=== PATIENT | female | born 1990 | race Caucasian/White ===

== ENCOUNTER 2016-09-11 22:37 | Emergency (ER) | payer SELFPAY ==
[~2016-09-11] VITALS: Ht 170.2 cm; Wt 94.3 kg
[~2016-09-11 22:37] MED LIST: ASPI325T4 PO; ATOR40TA PO; DIAZ5TAB PO; FLUC150T PO; GABA-586 PO; GABA600T2 PO; GLIM1TAB PO; HYDR-2666 PO; INSU100C SQ; INSU100I13 SQ; INSU100V SQ; INSU100V5 SQ; INSU100V8 SQ; LEVO500T38 PO; METO5TAB PO; OMEG10006 PO; ONDA4TAB10 SL; ONDA4TAB7 SL; OXYC10TA PO; OXYC1TAB7 PO; PROM12.553 RC; SULF1TAB24 PO; TRAM-29 PO; TRAM50TA PO; TRAZ100T12 PO; TRAZ50TA15 PO
[2016-09-12] VITALS: BP 157/85
[2016-09-12 01:42] LABS: BASO % 0 % (0-3); EOS % 1 % (0-3); HEMATOCRIT 36.1 % (36.0-47.0); HEMOGLOBIN 12.2 g/dL (12.0-15.5); LYMPH # 1.4 x10^3/uL (1.0-4.8); LYMPH % 12 % (24-48); MEAN CORPUSCULAR HEMOGLOBIN 26 pg (25-35); MEAN CORPUSCULAR HGB CONC 34 g/dL (31-37); MEAN CORPUSCULAR VOLUME 77 fL (79-100); MONO % 5 % (0-9); NEUT % 82 % (31-73); PLATELET COUNT 311 x10^3/uL (140-400); RED CELL DISTRIBUTION WIDTH 17.2 % (11.5-14.5); WHITE BLOOD COUNT 11.5 x10^3/uL (4.0-11.0)
[2016-09-12 01:59] LABS: CALCIUM 9.5 mg/dL (8.5-10.1); CREATININE 0.6 mg/dL (0.6-1.0); GFR 119.9
[2016-09-12 02:02] LABS: POTASSIUM 2.7 mmol/L (3.5-5.1)
[2016-09-12] MEDS ORDERED: CONTRAST GIVEN MC PRN (03:00)
[2016-09-12] MEDS ORDERED: IOHEXOL 300 MG/ML 75 ML VIAL IV ONE (03:00)
[2016-09-12] MEDS ORDERED: POTASSIUM CHLORIDE 20 MEQ TABLET.ER. PO ONE (03:00)
[2016-09-12] MEDS ORDERED: CLIN300C86 PO (04:22)
--- NOTE | 2016-09-12 04:23 | PHYS DOC ---
Past Medical History Past Medical History: Diabetes-Type I, MRSA, Other Additional Past Medical Histor: neuropathy, ovarian cyst,CHRONIC ABD PAIN, VENTRAL HERNIA, hyperglycemia Past Surgical History: Appendectomy, Cholecystectomy, Oophorectomy, Other Additional Past Surgical Histo: R fallopian tube removed, L ovarian cyst removed,HERNIA REPAIR, I&D L ARM Alcohol Use: None Drug Use: None Adult General Chief Complaint Chief Complaint: DENTAL PROBLEM HPI HPI 25-year-old female presenting to the emergency Department with left tooth pain after having multiple teeth removed in the left lower jaw. Her pain is a throbbing nonradiating pain. She denies alleviating or exacerbating factors. She also complains of nausea with one episode non-bilious vomiting over the past 24 hours. She also has left lower quadrant abdominal pain that is acute on chronic. She has chronic abdominal pain and she denies this pain being different than her previous pain that she is had for many months. Review of systems is negative for chest pain shortness of breath cough. Positive for nausea with one episode of vomiting. All other review of systems is negative. Review of Systems Review of Systems see above Current Medications Current Medications Current Medications Medications (Trade) Dose Ordered Sig/Naya Start Time Stop Time Status Last Admin Dose Admin Info (Do NOT chart on this entry -- for MONITORING) 1 each PRN DAILY PRN 09/12/16 03:00 09/12/16 04:30 DC Iohexol (Omnipaque 300 Mg/ml) 70 ml 1X ONCE 09/12/16 03:00 09/12/16 03:01 DC Potassium Chloride (Klor-Con) 40 meq 1X ONCE 09/12/16 03:00 09/12/16 03:01 DC 09/12/16 04:27 40 MEQ Allergies Allergies Allergies Coded Allergies Type Severity Reaction Last Updated Verified Penicillins Allergy Intermediate 01/29/16 Yes codeine Allergy Intermediate Tolerates Dilaudid, MORPHINE 01/29/16 Yes doxycycline Allergy Intermediate 01/29/16 Yes fentanyl Allergy Intermediate 01/29/16 Yes hydrocodone Allergy Intermediate 01/29/16 Yes Physical Exam Physical Exam Constitutional: Well developed, well nourished, no acute distress, non-toxic appearance. [] HENT: Normocephalic, atraumatic, bilateral external ears normal, oropharynx moist, no oral exudates, nose normal. patient has healing wounds from recent dental extraction on the left lower jaw. No sign of abscess formation. No swelling of the neck. No swelling of the tongue. Able to tolerate secretions without stridor. Eyes: PERRLA, EOMI, conjunctiva normal, no discharge. [] Neck: Normal range of motion, no tenderness, supple, no stridor. [] Cardiovascular:Heart rate regular rhythm, no murmur [] Lungs & Thorax: Bilateral breath sounds clear to auscultation [] Abdomen: Bowel sounds normal, soft, no tenderness, no masses, no pulsatile masses. neg mcburneys point. negative Hunt sign. Skin: Warm, dry, no erythema, no rash. [] Back: No tenderness, no CVA tenderness. [] Extremities: No tenderness, no cyanosis, no clubbing, ROM intact, no edema. [] Neurologic: Alert and oriented X 3, normal motor function, normal sensory function, no focal deficits noted. [] Psychologic: Affect normal, judgement normal, mood normal. [] Current Patient Data Vital Signs Vital Signs Date Time Temp Pulse Resp B/P Pulse Ox O2 Delivery O2 Flow Rate FiO2 09/12/16 02:30 104 97 Room Air 09/12/16 00:00 157/85 09/11/16 23:54 24 Lab Values Laboratory Tests Test 09/11/16 23:47 09/12/16 00:23 09/12/16 01:10 Glucose (Fingerstick) 58mg/dL (70-99) L 69mg/dL (70-99) L White Blood Count 11.5x10^3/uL (4.0-11.0) H Red Blood Count 4.70x10^6/uL (3.50-5.40) Hemoglobin 12.2g/dL (12.0-15.5) Hematocrit 36.1% (36.0-47.0) Mean Corpuscular Volume 77fL (79-100) L Mean Corpuscular Hemoglobin 26pg (25-35) Mean Corpuscular Hemoglobin Concent 34g/dL (31-37) Red Cell Distribution Width 17.2% (11.5-14.5) H Platelet Count 311x10^3/uL (140-400) Neutrophils (%) (Auto) 82% (31-73) H Lymphocytes (%) (Auto) 12% (24-48) L Monocytes (%) (Auto) 5% (0-9) Eosinophils (%) (Auto) 1% (0-3) Basophils (%) (Auto) 0% (0-3) Neutrophils # (Auto) 9.3x10^3uL (1.8-7.7) H Lymphocytes # (Auto) 1.4x10^3/uL (1.0-4.8) Monocytes # (Auto) 0.6x10^3/uL (0.0-1.1) Eosinophils # (Auto) 0.1x10^3/uL (0.0-0.7) Basophils # (Auto) 0.0x10^3/uL (0.0-0.2) Sodium Level 137mmol/L (136-145) Potassium Level 2.7mmol/L (3.5-5.1) *L Chloride Level 99mmol/L (98-107) Carbon Dioxide Level 23mmol/L (21-32) Anion Gap 15 (6-14) H Blood Urea Nitrogen 12mg/dL (7-20) Creatinine 0.6mg/dL (0.6-1.0) Estimated GFR (Cockcroft-Gault) 119.9 Glucose Level 99mg/dL (70-99) Calcium Level 9.5mg/dL (8.5-10.1) Laboratory Tests 09/12/16 01:10 Laboratory Tests 09/12/16 01:10 EKG EKG [] Radiology/Procedures Radiology/Procedures [] Course & Med Decision Making Course & Med Decision Making Pertinent Labs and Imaging studies reviewed. (See chart for details) []25-year-old female presenting to the emergency Department today with left jaw pain after recent dental extraction. Patient was mildly tachycardic likely secondary to pain. Unfortunately she is allergic to many pain medications. Blood testing obtained which showed low potassium. K was replaced in the emergency Department.otherwise, leukocytosis present. Likely secondary to her recent dental extraction. The patient was provided oral antibiotics to follow up with her dental surgeon within the next day or two. Her abdominal pain was more chronic. Abdominal exam not suggestive of acute surgical condition. She was provided potassium upon discharge for oral home replacement. Dragon Disclaimer Dragon Disclaimer This electronic medical record was generated, in whole or in part, using a voice recognition dictation system. Departure Departure Impression: Primary Impression: Pain, dental Additional Impression: Potassium depletion Disposition: HOME, SELF-CARE Condition: STABLE Referrals: UNKNOWN PCP NAME (PCP) Patient Instructions: Dental Pain Additional Instructions: Thank you for allowing us to participate in your care today. Followup with your primary care physician in 3 days if your symptoms do not improve. If you do not have a primary care provider you can ask for a list of our primary care providers. Return to the emergency department you have any new or concerning findings. This should be evaluated by the primary care physician and any necessary consulting services for continued management within a few days after discharge. Return to emergency room if you have any new or concerning symptoms including but not limited to fever, chills, nausea, vomiting, intractable pain, any new rashes, chest pain, shortness of air, uncontrolled bleeding, difficulty breathing, and/or vision loss. Scripts Potassium Chloride 10 Meq Capsule.er10 Meq PO DAILY #7 TAB.SR Prov:HENRRY WALSH MD 09/12/16 Clindamycin Hcl 300 Mg Capsule1 Cap PO BID #14 CAP Prov:HENRRY WALSH MD 09/12/16 Problem Qualifiers HENRRY WALSH MD Sep 12, 2016 04:22
[2016-09-12] MEDS ORDERED: POTA10CA PO (04:27)
--- NOTE | 2016-09-12 18:49 | EKG ---
[facility] [address] [place] [address] Test Date: 2016-09-11 Test Time: 23:58:56 Pat Name: SAMANTHA DOWD Department: Room: Gender: F Trailer Rental Clerk: DARLENE EMT : 1990 Requested By: HENRRY WALSH Order Number: [id number] Reading MD: Elaine Agrawal Measurements Intervals [place] Rate: 115 P: 39 TN: 148 QRS: 58 QRSD: 84 T: 1 QT: 324 QTc: 450 Interpretive Statements SINUS TACHYCARDIA LEFT ATRIAL ABNORMALITY ABNORMAL ECG Electronically Signed On 09-13-2016 19:02:47 KEYMODULE ASSEMBLY SUPERVISOR by Elaine Agrawal
== END 2016-09-12 04:20 | disposition home or self-care (01) ==
LOC: ER 22:37
DX: K08.89 Other specified disorders of teeth and supporting structures (principal); E87.6 Hypokalemia; G89.29 Other chronic pain; R10.32 Left lower quadrant pain; E10.40 Type 1 diabetes mellitus with diabetic neuropathy, unspecified; E10.65 Type 1 diabetes mellitus with hyperglycemia; Z90.49 Acquired absence of other specified parts of digestive tract; Z90.79 Acquired absence of other genital organ(s); Z88.0 Allergy status to penicillin; Z88.1 Allergy status to other antibiotic agents; Z88.5 Allergy status to narcotic agent; Z88.8 Allergy status to other drugs, medicaments and biological substances
CPT/HCPCS: 36415; 80048; 82947; 85027; 93005; 99285-25

== ENCOUNTER 2016-09-16 23:36 | Inpatient (IN) | payer SELFPAY ==
[~2016-09-16] VITALS: Ht 170.2 cm; Wt 95.7 kg
[~2016-09-16 23:36] MED LIST changes: +CLIN300C86 PO; +POTA10CA PO
[2016-09-17] MEDS ORDERED: IV NORMAL SALINE 1000ML BAG 1,000 ML IV SCH (00:45)
[2016-09-17 00:59] LABS: BILIRUBIN,URINE NEGATIVE (NEG); GLUCOSE,URINE >=1000 mg/dL (NEG); NITRITE,URINE NEGATIVE (NEG); PROTEIN,URINE NEGATIVE (NEG-TRACE); UROBILINOGEN,URINE 0.2 mg/dL (0.2 mg/dL)
[2016-09-17] MEDS ORDERED: ONDANSETRON ODT 4 MG TAB.RAPDIS PO ONE (01:00)
[2016-09-17 01:04] LABS: BASO % 0 % (0-3); EOS % 2 % (0-3); HEMATOCRIT 36.3 % (36.0-47.0); HEMOGLOBIN 11.6 g/dL (12.0-15.5); LYMPH # 2.4 x10^3/uL (1.0-4.8); LYMPH % 29 % (24-48); MEAN CORPUSCULAR HEMOGLOBIN 25 pg (25-35); MEAN CORPUSCULAR HGB CONC 32 g/dL (31-37); MEAN CORPUSCULAR VOLUME 79 fL (79-100); MONO % 8 % (0-9); NEUT % 61 % (31-73); PLATELET COUNT 273 x10^3/uL (140-400); RED BLOOD COUNT 4.59 x10^6/uL (3.50-5.40); RED CELL DISTRIBUTION WIDTH 16.9 % (11.5-14.5); WHITE BLOOD COUNT 8.2 x10^3/uL (4.0-11.0)
[2016-09-17 01:07] LABS: BACTERIA,URINE FEW /HPF (0-FEW); RBC,URINE TNTC /HPF (0-2); SQUAMOUS EPITHELIAL CELL,UR FEW /LPF
[2016-09-17 01:45] LABS: ALBUMIN/GLOBULIN RATIO 0.9 (1.0-1.7); CALCIUM 9.7 mg/dL (8.5-10.1); GFR 66.5; POTASSIUM 3.9 mmol/L (3.5-5.1); TOTAL BILIRUBIN 0.4 mg/dL (0.2-1.0); TOTAL PROTEIN 8.4 g/dL (6.4-8.2)
[2016-09-17] MEDS ORDERED: FAMOTIDINE 20 MG/2 ML VIAL IVP ONE (02:00)
[2016-09-17] MEDS ORDERED: ONDANSETRON PF 4 MG/2 ML VIAL. IV ONE (02:00)
[2016-09-17] MEDS ORDERED: POTASSIUM CHLORIDE 10MEQ 100 ML IV PRN ×3 (02:15)
[2016-09-17] MEDS ORDERED: INSULIN REGULAR VIAL 150 UNIT in 0.9 % SODIUM CHLORIDE 150ML 150 ML IV PRN ×2 (02:15→05:30)
[2016-09-17 02:30] LABS: HCO3 ABG 20 mmol/L (21-28); PCO2 ABG 30 mmHg (35-46); PH ABG 7.43 (7.35-7.45); PO2 ABG 103 mmHg (85-108)
[2016-09-17] MEDS ORDERED: IV 1/2 NORMAL SALINE 1,000 ML IV SCH ×2 (02:30→05:30)
[2016-09-17] MEDS ORDERED: INSULIN,REGULAR 150 UNIT DRIP 150 ML IV ONE ×3 (02:30→03:30)
[2016-09-17 02:32] LABS: FIO2 ABG 21
--- NOTE | 2016-09-17 02:36 | ED.ADGEN ---
Past Medical History Past Medical History: Diabetes-Type I, MRSA, Other Additional Past Medical Histor: neuropathy, ovarian cyst,CHRONIC ABD PAIN, VENTRAL HERNIA, hyperglycemia Past Surgical History: Appendectomy, Cholecystectomy, Oophorectomy, Other Additional Past Surgical Histo: R fallopian tube removed, L ovarian cyst removed,HERNIA REPAIR, I&D L ARM Alcohol Use: None Drug Use: None Adult General Chief Complaint Chief Complaint: HYPERGLYCEMIA HPI HPI Patient is a 25 year old woman, with history of type 1 diabetes mellitus, chronic abdominal pain, who presents emergency Department with complaint of high sugars, nausea, vomiting, abdominal pain consistent with her typical episodes of hyperglycemia. Denies any fevers or chills, states that she was seen at her primary care provider, [facility], yesterday, at that time she had an increase of her insulin however it has been unsuccessful in controlling her sugars. She denies any chest pain or shortness of breath, any rhinorrhea, states she has one episode of diarrhea here just upon arrival to the ED, multiple doses of vomiting that began yesterday. No injuries, no urinary complaints. Review of Systems Review of Systems Constitutional: Denies fever or chills. [] Eyes: Denies change in visual acuity. [] HENT: Denies nasal congestion or sore throat. [] Respiratory: Denies cough or shortness of breath. [] Cardiovascular: Denies chest pain or edema. [] GI: Abdominal pain, nausea, vomiting, one episode of diarrhea. No bloody stools. : Denies dysuria. [] Musculoskeletal: Denies back pain or joint pain. [] Integument: Denies rash. [] Neurologic: Denies headache, focal weakness or sensory changes. [] Endocrine: Denies polyuria or polydipsia. [] Lymphatic: Denies swollen glands. [] Psychiatric: Denies depression or anxiety. [] Current Medications Current Medications Current Medications Medications (Trade) Dose Ordered Sig/Naya Start Time Stop Time Status Last Admin Dose Admin Famotidine (Pepcid) 20 mg 1X ONCE 09/17/16 02:00 09/17/16 02:41 DC 09/17/16 01:43 20 MG Insulin Human Regular (Novolin R Iv Drip) 150 ml @ 9.435 mls/ hr 1X ONCE 09/17/16 02:30 09/17/16 02:41 DC Insulin Human Regular 150 unit/ Sodium Chloride 151.5 ml @ 0 mls/hr CONT PRN PRN 09/17/16 02:15 09/17/16 02:39 DC Metoclopramide HCl (Reglan) 10 mg 1X ONCE 09/17/16 02:45 09/17/16 02:46 DC 09/17/16 03:29 10 MG Ondansetron HCl (Zofran Odt) 4 mg 1X ONCE 09/17/16 01:00 09/17/16 01:01 DC Ondansetron HCl 4 mg 4 mg 1X ONCE 09/17/16 02:00 09/17/16 02:01 DC 09/17/16 01:44 4 MG Potassium Chloride 100 ml @ 100 mls/hr PRN Q1HR PRN 09/17/16 02:15 09/17/16 02:39 DC Sodium Chloride 1,000 ml @ 500 mls/hr Q2H 09/17/16 02:30 09/17/16 02:39 DC Sodium Chloride (Iv Sodium Chloride 0.9% 1000ml Bag) 1,000 ml @ 1,000 mls/hr Q1H 09/17/16 00:45 09/17/16 01:44 DC 09/17/16 01:27 1,000 MLS/HR Allergies Allergies Allergies Coded Allergies Type Severity Reaction Last Updated Verified Penicillins Allergy Intermediate 01/29/16 Yes codeine Allergy Intermediate Tolerates Dilaudid, MORPHINE 01/29/16 Yes doxycycline Allergy Intermediate 01/29/16 Yes fentanyl Allergy Intermediate 01/29/16 Yes hydrocodone Allergy Intermediate 01/29/16 Yes Physical Exam Physical Exam Constitutional: Well developed, well nourished, no acute distress, non-toxic appearance. [] HENT: Normocephalic, atraumatic, bilateral external ears normal, oropharynx moist, no oral exudates, nose normal. [] Eyes: PERRLA, EOMI, conjunctiva normal, no discharge. [] Neck: Normal range of motion, no tenderness, supple, no stridor. [] Cardiovascular:Heart rate regular rhythm, no murmur, S1, S2, rubs or gallops. [] Lungs & Thorax: Bilateral breath sounds clear to auscultation, no wheezing, rhonchi, rales. No chest or crepitus or tenderness. [] Abdomen: Bowel sounds normal, soft, mild initial patient diffusely, no rebound, rigidity, no guarding, no masses, no pulsatile masses. [] Skin: Warm, dry, no erythema, no rash. [] Back: No tenderness, no CVA tenderness. [] Extremities: No tenderness, no cyanosis, no clubbing, ROM intact, no edema. Negative Homans sign. Neurologic: Alert and oriented X 3, normal motor function, normal sensory function, no focal deficits noted. [] Psychologic: Affect normal, judgement normal, mood normal. [] Current Patient Data Vital Signs Vital Signs Date Time Temp Pulse Resp B/P Pulse Ox O2 Delivery O2 Flow Rate FiO2 09/17/16 02:22 116 22 124/64 99 Room Air 09/17/16 00:29 97.5 97.5 Lab Values Laboratory Tests Test 09/17/16 00:01 09/17/16 00:28 09/17/16 00:55 09/17/16 01:12 Urine Collection Type Unknown Urine Color Red Urine Clarity Cloudy Urine pH 6.0 Urine Specific [place] 1.025 Urine Protein Negativemg/dL (NEG-TRACE) Urine Glucose (UA) >=1000mg/dL (NEG) Urine Ketones (Stick) Negativemg/dL (NEG) Urine Blood Large (NEG) Urine Nitrite Negative (NEG) Urine Bilirubin Negative (NEG) Urine Urobilinogen Dipstick 0.2mg/dL (0.2 mg/dL) Urine Leukocyte Esterase Small (NEG) Urine RBC Tntc/HPF (0-2) Urine WBC 5-10/HPF (0-4) Urine Squamous Epithelial Cells Few/LPF Urine Bacteria Few/HPF (0-FEW) POC Urine HCG, Qualitative Hcg negative (Negative) White Blood Count 8.2x10^3/uL (4.0-11.0) Red Blood Count 4.59x10^6/uL (3.50-5.40) Hemoglobin 11.6g/dL (12.0-15.5) L Hematocrit 36.3% (36.0-47.0) Mean Corpuscular Volume 79fL (79-100) Mean Corpuscular Hemoglobin 25pg (25-35) Mean Corpuscular Hemoglobin Concent 32g/dL (31-37) Red Cell Distribution Width 16.9% (11.5-14.5) H Platelet Count 273x10^3/uL (140-400) Neutrophils (%) (Auto) 61% (31-73) Lymphocytes (%) (Auto) 29% (24-48) Monocytes (%) (Auto) 8% (0-9) Eosinophils (%) (Auto) 2% (0-3) Basophils (%) (Auto) 0% (0-3) Neutrophils # (Auto) 5.0x10^3uL (1.8-7.7) Lymphocytes # (Auto) 2.4x10^3/uL (1.0-4.8) Monocytes # (Auto) 0.6x10^3/uL (0.0-1.1) Eosinophils # (Auto) 0.2x10^3/uL (0.0-0.7) Basophils # (Auto) 0.0x10^3/uL (0.0-0.2) Lactic Acid Level 4.6mmol/L (0.4-2.0) *H Test 09/17/16 01:15 09/17/16 02:27 Sodium Level 131mmol/L (136-145) L Potassium Level 3.9mmol/L (3.5-5.1) Chloride Level 93mmol/L (98-107) L Carbon Dioxide Level 24mmol/L (21-32) Anion Gap 14 (6-14) Blood Urea Nitrogen 8mg/dL (7-20) Creatinine 1.0mg/dL (0.6-1.0) Estimated GFR (Cockcroft-Gault) 66.5 BUN/Creatinine Ratio 8 (6-20) Glucose Level 610mg/dL (70-99) *H Calcium Level 9.7mg/dL (8.5-10.1) Phosphorus Level 3.8mg/dL (2.6-4.7) Magnesium Level 1.9mg/dL (1.8-2.4) Total Bilirubin 0.4mg/dL (0.2-1.0) Aspartate Amino Transferase (AST) 20U/L (15-37) Alanine Aminotransferase (ALT) 42U/L (14-59) Alkaline Phosphatase 166U/L (46-116) H Total Protein 8.4g/dL (6.4-8.2) H Albumin 4.0g/dL (3.4-5.0) Albumin/Globulin Ratio 0.9 (1.0-1.7) L Lipase 169U/L (73-393) O2 Saturation Pending Arterial Blood pH 7.43 (7.35-7.45) Arterial Blood pCO2 at Patient Temp 30mmHg (35-46) L Arterial Blood pO2 at Patient Temp 103mmHg (85-108) Arterial Blood HCO3 20mmol/L (21-28) L Arterial Blood Base Excess -4mmol/L (-3-3) L FiO2 21 Laboratory Tests 09/17/16 00:55 Laboratory Tests 09/17/16 01:15 EKG EKG EC: Sinus tachycardia, heart rate 122 bpm, right axis deviation with right ventricular hypertrophy, moderate baseline artifact noted, QTc mildly prolonged at 514, [place] 120, QRS of 60, abnormal ECG, no ST elevations or depressions. As interpreted by me. [] Radiology/Procedures Radiology/Procedures Acute abdominal series: Normal cardiac silhouette, no infiltrate, no effusions, no soft tissue or bony abnormalities identified. No free air, stool and bowel gas throughout. No evidence of obstruction. As interpreted by me. [] Course & Med Decision Making Course & Med Decision Making Pertinent Labs and Imaging studies reviewed. (See chart for details) Patient with a glucose of 610, no ketones in the urine, no anion gap, patient with a lactic of 4.6. Evaluation is consistent with dehydration this time, patient has a soft nontender abdomen, x-rays unremarkable, and her pain is consistent with her previous known chronic pain. IV hydration initiated, along with insulin drip. Will admit to the medical telemetry floor for continued hydration and glucose management. Patient is agreeable with this plan. Above discussed with Dr. Munguia of internal medicine, she accepted to his service as a full admission to the medical telemetry floor, she remains tachycardic at this time, with continued supportive care, insulin drip, and monitoring. Bridge orders entered per his request. Patient transferred to the floor without issue. Dragon Disclaimer Dragon Disclaimer This electronic medical record was generated, in whole or in part, using a voice recognition dictation system. Departure Impression: Primary Impression: Hyperglycemia Additional Impressions: Hyperglycemia due to type 1 diabetes mellitus Dehydration Disposition: 09 ADMITTED INPATIENT Admitting Physician: Sonia Munguia Condition: IMPROVED Problem Qualifiers ANGELA DIOR DO Sep 17, 2016 02:35
[2016-09-17] MEDS ORDERED: METOCLOPRAMIDE 10 MG TABLET PO ONE (02:45)
[2016-09-17] MEDS ORDERED: IV NORMAL SALINE 1000ML BAG 1,000 ML IV ONE ×2 (03:00→03:30)
[2016-09-17] MEDS ORDERED: MORPHINE SULFATE 4 MG/ML DISP.SYRIN. IV ONE (03:30)
[2016-09-17 04:43] VITALS: BP 136/75
[2016-09-17] MEDS ORDERED: ACETAMINOPHEN 325 MG TABLET. PO PRN (05:00)
[2016-09-17] MEDS: TRAMADOL 50 MG TABLET. PO PRN ×3 (05:28→22:12)
[2016-09-17] MEDS ORDERED: IV DEXTROSE 5 %-0.45 % NACL 1,000 ML IV SCH (05:30)
[2016-09-17] MEDS: ONDANSETRON PF 4 MG/2 ML VIAL. IV PRN ×2 (05:30→15:40)
[2016-09-17] MEDS: IV NORMAL SALINE 1000ML BAG 1,000 ML IV SCH ×3 (06:43→22:16)
[2016-09-17] MEDS: MORPHINE SULFATE 2 MG/ML DISP.SYRIN. IV PRN ×2 (06:52→11:07)
[2016-09-17 07:00] VITALS: BP 138/82
--- NOTE | 2016-09-17 07:32 | RAD ---
Abdomen series with chest, 3 views, 09/17/2016: History: Abdominal pain The flank regions are not completely included on these images of this large patient. The abdominal gas pattern is unremarkable. No free air is evident in the abdomen. Surgical clips are present in the right upper quadrant. The heart size is normal. The lungs are clear. There is no evidence of pleural fluid. IMPRESSION: No acute abdominal abnormality is detected.
--- NOTE | 2016-09-17 07:57 | EKG ---
[facility] [address] [place] [address] Test Date: 2016-09-17 Test Time: 01:23:51 Pat Name: SAMANTHA DOWD Department: Room: 444 1 Gender: F Spa Consultant: : 1990 Requested By: ANGELA DIOR Order Number: [id number] Reading MD: Weston Valdez Measurements Intervals [place] Rate: 122 P: -111 OK: 120 QRS: 131 QRSD: 68 T: 19 QT: 360 QTc: 514 Interpretive Statements SINUS TACHYCARDIA ABNORMAL RIGHT AXIS DEVIATION Electronically Signed On 10-01-2016 14:55:17 PANTOGRAPH WATCHER by Weston Valdez
[2016-09-17 08:34] LABS: CALCIUM 8.8 mg/dL (8.5-10.1); CREATININE 0.6 mg/dL (0.6-1.0); GFR 119.9; POTASSIUM 3.2 mmol/L (3.5-5.1)
[2016-09-17] MEDS ORDERED: INSULIN DETEMIR 300 UNITS/3 ML INSULN.PEN. SQ SCH (09:00)
[2016-09-17 11:00] VITALS: BP 133/86
[2016-09-17] MEDS ORDERED: TRAMADOL 50 MG TABLET. PO PRN (14:30)
[2016-09-17] MEDS ORDERED: DEXTROSE 50% 25 GM / 50ML DISP.SYRIN. IV PRN (14:30)
[2016-09-17 15:00] VITALS: BP 137/89
[2016-09-17] MEDS: GABAPENTIN 300 MG CAPSULE. PO SCH ×3 (15:00→22:11)
[2016-09-17] MEDS: METOCLOPRAMIDE 10 MG TABLET PO SCH (15:40)
--- NOTE | 2016-09-17 16:19 | HP ---
ADMIT DATE: 09/17/2016 CHIEF COMPLAINT: DKA. HISTORY OF PRESENT ILLNESS: The patient is a 25-year-old woman with diabetes type 1 by monthly admissions for blood sugar issues. At this time, she presents with hyperglycemia after apparent ER visit several days ago for hypoglycemia. She attributes all this to oral surgery that she had about 10 days ago. She explained that that she had been eating terribly well. It is somewhat unclear, if she actually had continued her insulin as previously prescribed. She was admitted on insulin drip and is currently in much better blood glucose control. PAST MEDICAL HISTORY: Diabetes type 1, noncompliant; diabetic nephropathy; diabetic neuropathy; ovarian cyst; chronic pain syndrome with narcotic dependence. She is status post appendectomy, cholecystectomy, oophorectomy, hernia repair and I and D of the left arm. FAMILY HISTORY: Hypertension. SOCIAL HISTORY: , not working. No toxic habits. ALLERGIES: PENICILLIN, CODEINE, FENTANYL AND HYDROCODONE. MEDICATIONS: Mar reconciled with home medications. REVIEW OF SYSTEMS: As usual. General aches and pains, fatigue, appetite is poor, still has issues with her dry socket from oral surgery. Denies any fevers or chills at home. No nausea, vomiting or abdominal pain. PHYSICAL EXAMINATION: VITAL SIGNS: Today show blood pressure of 133/86, heart rate of 105, respiratory rate at 18. She is afebrile. GENERAL: This is an obese, 25-year-old woman, alert and oriented, in no acute distress. HEENT: Shows no scleral icterus. Oral mucosa is pink and moist. NECK: Supple. LUNGS: Clear. HEART: Regular rate and rhythm. ABDOMEN: Obese, positive bowel sounds. EXTREMITIES: Show no edema. No clubbing, no cyanosis. SKIN: Warm, soft and dry. LABORATORY DATA: CBC at admit with a WBC of 8.2, hemoglobin 11.6, platelets of 273. Chemistries with a BUN and creatinine of 8 and 1.0, sodium of 131, potassium at 3.2, glucose at 610. Anion gap of 14. Urine with 5-10 wbc, TNTC rbc, nitrite negative. test negative. IMAGING STUDIES: Acute abdomen series obtained shows no acute abdominal abnormality. ASSESSMENT AND PLAN: The patient is a 25-year-old diabetic once again admitted with hyperglycemia. It is somewhat unclear if she ever sticks to her regimen at home. She has been started on insulin drip. Control is excellent at this time will switch back to injections. She had been on 75 units b.i.d. of detemir insulin, well decreased to 50 and mealtime doses in insulin sliding scale as well. Sodium has been replete, already repeat labs show improvement. Potassium is slightly low still. We will replete orally. For her chronic pain issues, home medications will be continued. Because of narcotic dependence, IV narcotics will be avoided. With improvement in her blood sugars, anticipate discharge by tomorrow. JEEVAN MOSQUEDA MD DR: UR/nts JOB#: [id number] / [id number] VIOLETA
[2016-09-17] MEDS: INSULIN ASPART 300 UNITS/3 ML INSULN.PEN SQ SCH ×2 (17:00→17:29)
[2016-09-17 19:00] VITALS: BP 126/98
[2016-09-17] MEDS: INSULIN DETEMIR 300 UNITS/3 ML INSULN.PEN. SQ SCH (22:08)
[2016-09-17 23:00] VITALS: BP 141/93
[2016-09-18 03:00] VITALS: BP 155/99
[2016-09-18 07:00] VITALS: BP 122/87
[2016-09-18] MEDS: METOCLOPRAMIDE 10 MG TABLET PO SCH (07:30)
[2016-09-18] MEDS ORDERED: POTASSIUM CHLORIDE 10 MEQ TABLET.ER. PO SCH (08:00)
[2016-09-18] MEDS ORDERED: GLIMEPIRIDE 2 MG TABLET PO SCH (09:00)
[2016-09-18] MEDS: TRAMADOL 50 MG TABLET. PO PRN (09:18)
[2016-09-18] MEDS: INSULIN ASPART 300 UNITS/3 ML INSULN.PEN SQ SCH ×4 (09:21→12:09)
[2016-09-18] MEDS: INSULIN DETEMIR 300 UNITS/3 ML INSULN.PEN. SQ SCH (09:23)
--- NOTE | 2016-09-18 10:11 | PDOC ---
PROGRESS NOTES Chief Complaint Chief Complaint Hyperglycemia ASSESSMENT AND PLAN: 1. Hyperglycemia: well controlled on modified home regimen 2. Chronic pain syndrome: tramdol PRN 3. Dispo: home today Vitals Vitals Vital Signs Date Time Temp Pulse Resp B/P Pulse Ox O2 Delivery O2 Flow Rate FiO2 09/18/16 09:18 20 Room Air 09/18/16 07:00 98.0 96 122/87 97 98.0 Physical Exam General: Alert, Oriented X3, Cooperative Heart: Regular rate Lungs: Clear Abdomen: Normal bowel sounds, Soft, No tenderness Extremities: No clubbing, No edema Skin: No rashes Labs LABS Laboratory Tests Test 09/17/16 10:02 09/17/16 10:56 09/17/16 12:10 09/17/16 13:18 Glucose (Fingerstick) 132mg/dL (70-99) 134mg/dL (70-99) 137mg/dL (70-99) 124mg/dL (70-99) Test 09/17/16 14:23 09/17/16 16:40 09/17/16 20:33 09/18/16 08:24 Glucose (Fingerstick) 122mg/dL (70-99) 158mg/dL (70-99) 97mg/dL (70-99) 215mg/dL (70-99) Review of Systems Review of Systems declining verious meds and blood draws, feels ready to go home Comment Review of Relevant I have reviewed the following items lizbeth (where applicable) has been applied. Labs Laboratory Tests Test 09/17/16 00:01 09/17/16 00:28 09/17/16 00:55 09/17/16 01:12 Urine Collection Type Unknown Urine Color Red Urine Clarity Cloudy Urine pH 6.0 Urine Specific [place] 1.025 Urine Protein Negativemg/dL (NEG-TRACE) Urine Glucose (UA) >=1000mg/dL (NEG) Urine Ketones (Stick) Negativemg/dL (NEG) Urine Blood Large (NEG) Urine Nitrite Negative (NEG) Urine Bilirubin Negative (NEG) Urine Urobilinogen Dipstick 0.2mg/dL (0.2 mg/dL) Urine Leukocyte Esterase Small (NEG) Urine RBC Tntc/HPF (0-2) Urine WBC 5-10/HPF (0-4) Urine Squamous Epithelial Cells Few/LPF Urine Bacteria Few/HPF (0-FEW) Bedside Urine HCG, Qualitative Hcg negative (Negative) White Blood Count 8.2x10^3/uL (4.0-11.0) Red Blood Count 4.59x10^6/uL (3.50-5.40) Hemoglobin 11.6g/dL (12.0-15.5) Hematocrit 36.3% (36.0-47.0) Mean Corpuscular Volume 79fL (79-100) Mean Corpuscular Hemoglobin 25pg (25-35) Mean Corpuscular Hemoglobin Concent 32g/dL (31-37) Red Cell Distribution Width 16.9% (11.5-14.5) Platelet Count 273x10^3/uL (140-400) Neutrophils (%) (Auto) 61% (31-73) Lymphocytes (%) (Auto) 29% (24-48) Monocytes (%) (Auto) 8% (0-9) Eosinophils (%) (Auto) 2% (0-3) Basophils (%) (Auto) 0% (0-3) Neutrophils # (Auto) 5.0x10^3uL (1.8-7.7) Lymphocytes # (Auto) 2.4x10^3/uL (1.0-4.8) Monocytes # (Auto) 0.6x10^3/uL (0.0-1.1) Eosinophils # (Auto) 0.2x10^3/uL (0.0-0.7) Basophils # (Auto) 0.0x10^3/uL (0.0-0.2) Lactic Acid Level 4.6mmol/L (0.4-2.0) Test 09/17/16 01:15 09/17/16 02:27 09/17/16 04:36 09/17/16 05:39 Sodium Level 131mmol/L (136-145) Potassium Level 3.9mmol/L (3.5-5.1) Chloride Level 93mmol/L (98-107) Carbon Dioxide Level 24mmol/L (21-32) Anion Gap 14 (6-14) Blood Urea Nitrogen 8mg/dL (7-20) Creatinine 1.0mg/dL (0.6-1.0) Estimated GFR (Cockcroft-Gault) 66.5 BUN/Creatinine Ratio 8 (6-20) Glucose Level 610mg/dL (70-99) Calcium Level 9.7mg/dL (8.5-10.1) Phosphorus Level 3.8mg/dL (2.6-4.7) Magnesium Level 1.9mg/dL (1.8-2.4) Total Bilirubin 0.4mg/dL (0.2-1.0) Aspartate Amino Transf (AST/SGOT) 20U/L (15-37) Alanine Aminotransferase (ALT/SGPT) 42U/L (14-59) Alkaline Phosphatase 166U/L (46-116) Total Protein 8.4g/dL (6.4-8.2) Albumin 4.0g/dL (3.4-5.0) Albumin/Globulin Ratio 0.9 (1.0-1.7) Lipase 169U/L (73-393) Arterial Blood pH 7.43 (7.35-7.45) Arterial Blood pCO2 at Patient Temp 30mmHg (35-46) Arterial Blood pO2 at Patient Temp 103mmHg (85-108) Arterial Blood HCO3 20mmol/L (21-28) Arterial Blood Base Excess -4mmol/L (-3-3) FiO2 21 Glucose (Fingerstick) 307mg/dL (70-99) 268mg/dL (70-99) Test 09/17/16 06:43 09/17/16 07:00 09/17/16 07:51 09/17/16 08:15 Glucose (Fingerstick) 214mg/dL (70-99) 202mg/dL (70-99) Nasal Screen MRSA (PCR) Negative (Negative) Sodium Level 140mmol/L (136-145) Potassium Level 3.2mmol/L (3.5-5.1) Chloride Level 104mmol/L (98-107) Carbon Dioxide Level 24mmol/L (21-32) Anion Gap 12 (6-14) Blood Urea Nitrogen 7mg/dL (7-20) Creatinine 0.6mg/dL (0.6-1.0) Estimated GFR (Cockcroft-Gault) 119.9 Glucose Level 182mg/dL (70-99) Lactic Acid Level 1.8mmol/L (0.4-2.0) Calcium Level 8.8mg/dL (8.5-10.1) Test 09/17/16 08:56 09/17/16 10:02 09/17/16 10:56 09/17/16 12:10 Glucose (Fingerstick) 167mg/dL (70-99) 132mg/dL (70-99) 134mg/dL (70-99) 137mg/dL (70-99) Test 09/17/16 13:18 09/17/16 14:23 09/17/16 16:40 09/17/16 20:33 Glucose (Fingerstick) 124mg/dL (70-99) 122mg/dL (70-99) 158mg/dL (70-99) 97mg/dL (70-99) Test 09/18/16 08:24 Glucose (Fingerstick) 215mg/dL (70-99) Laboratory Tests Test 09/17/16 10:02 09/17/16 10:56 09/17/16 12:10 09/17/16 13:18 Glucose (Fingerstick) 132mg/dL (70-99) 134mg/dL (70-99) 137mg/dL (70-99) 124mg/dL (70-99) Test 09/17/16 14:23 09/17/16 16:40 09/17/16 20:33 09/18/16 08:24 Glucose (Fingerstick) 122mg/dL (70-99) 158mg/dL (70-99) 97mg/dL (70-99) 215mg/dL (70-99) Medications Current Medications Sodium Chloride (Iv Sodium Chloride 0.9% 1000ml Bag) 1,000 ml @ 1,000 mls/hr Q1H IV Last administered on 09/17/16 01:27; Start 09/17/16 at 00:45; Stop at 01:44; Status DC Ondansetron HCl (Zofran Odt) 4 mg 1X ONCE PO ; Start 09/17/16 at 01:00; Stop at 01:01; Status DC Famotidine (Pepcid) 20 mg 1X ONCE IVP Last administered on 09/17/16 01:43; Start 09/17/16 at 02:00; Stop 09/17/16 at 02:41; Status DC Ondansetron HCl 4 mg 4 mg 1X ONCE IV Last administered on 09/17/16 01:44; Start 09/17/16 at 02:00; Stop 09/17/16 at 02:01; Status DC Sodium Chloride 1,000 ml @ 500 mls/hr Q2H IV ; Start 09/17/16 at 02:30; Stop at 02:39; Status DC Sodium Chloride 1,000 ml @ 250 mls/hr Q4H IV ; Start 09/17/16 at 05:30; Stop at 05:30; Status DC Insulin Human Regular 150 unit/ Sodium Chloride 151.5 ml @ 0 mls/hr CONT PRN PRN IV PER PROTOCOL; Start 09/17/16 at 02:15; Stop 09/17/16 at 02:39; Status DC Potassium Chloride 100 ml @ 100 mls/hr PRN Q1HR PRN IV SEE COMMENTS; Start at 02:15; Stop 09/17/16 at 02:39; Status DC Potassium Chloride 100 ml @ 100 mls/hr PRN Q1HR PRN IV SEE COMMENTS; Start at 02:15; Stop 09/17/16 at 02:39; Status DC Potassium Chloride 100 ml @ 100 mls/hr PRN Q1HR PRN IV SEE COMMENTS; Start at 02:15; Stop 09/17/16 at 02:39; Status DC Insulin Human Regular (Novolin R Iv Drip) 150 ml @ 9.435 mls/ hr 1X ONCE IV ; Start 09/17/16 at 02:30; Stop 09/17/16 at 02:41; Status DC Metoclopramide HCl 10 mg 10 mg 1X ONCE PO Last administered on 09/17/16 03:29 ; Start 09/17/16 at 02:45; Stop 09/17/16 at 02:46; Status DC Sodium Chloride 1,000 ml @ 250 mls/hr 1X ONCE IV Last administered on 04:30; Start 09/17/16 at 03:00; Stop 09/17/16 at 06:59; Status DC Insulin Human Regular (Novolin R Iv Drip) 150 ml @ As Directed STK-MED ONCE IV ; Start 09/17/16 at 03:01; Stop 09/17/16 at 14:38; Status DC Morphine Sulfate 4 mg 4 mg 1X ONCE IV Last administered on 09/17/16 03:29; Start 09/17/16 at 03:30; Stop 09/17/16 at 03:31; Status DC Insulin Human Regular 150 ml @ 0 mls/hr 1X ONCE IV Last administered on 03:26; Start 09/17/16 at 03:30; Stop 09/17/16 at 14:44; Status DC Sodium Chloride 1,000 ml @ 1,000 mls/hr 1X ONCE IV Last administered on 03:30; Start 09/17/16 at 03:30; Stop 09/17/16 at 04:29; Status DC Sodium Chloride (Iv Sodium Chloride 0.9% 1000ml Bag) 1,000 ml @ 125 mls/hr Q8H IV Last administered on 09/17/16 22:16; Start 09/17/16 at 04:46; Stop at 04:45; Status DC Acetaminophen (Tylenol) 650 mg PRN Q4HRS PRN PO FEVER; Start 09/17/16 at 05:00 ; Stop 09/18/16 at 04:59; Status DC Tramadol HCl (Ultram) 50 mg PRN Q6HRS PRN PO MODERATE PAIN Last administered on 09/18/16 09:18; Start 09/17/16 at 05:15 Insulin Detemir (Levemir) 75 units BID SQ Last administered on 09/17/16 09:16 ; Start 09/17/16 at 09:00; Stop 09/17/16 at 14:38; Status DC Ondansetron HCl 4 mg 4 mg PRN Q6HRS PRN IV NAUSEA/VOMITING Last administered on 09/17/16 15:40; Start 09/17/16 at 05:15 Insulin Human Regular/Sodium Chloride (Novolin R Vial/ Iv Normal Saline 150ml) 151.5 ml @ 0 mls/hr CONT PRN IV SEE I/O RECORD; Start 09/17/16 at 05:30 Morphine Sulfate 2 mg PRN Q4HRS PRN IV SEVRE PAIN Last administered on 11:07; Start 09/17/16 at 06:45; Stop 09/17/16 at 12:36; Status DC Insulin Detemir (Levemir) 50 units BID SQ Last administered on 09/18/16 09:23 ; Start 09/17/16 at 21:00 Metoclopramide HCl (Reglan) 10 mg BIDAC PO Last administered on 09/17/16 15:40 ; Start 09/17/16 at 16:30 Tramadol HCl (Ultram) 50 mg PRN Q6HRS PRN PO PAIN; Start 09/17/16 at 14:30 Gabapentin (Neurontin) 600 mg TID PO Last administered on 09/17/16 22:11; Start 09/17/16 at 15:00 Glimepiride (Amaryl) 1 mg DAILY PO ; Start 09/18/16 at 09:00 Potassium Chloride (Klor-Con) 10 meq DAILYWBKFT PO Last administered on 09:18; Start 09/18/16 at 08:00 Insulin Aspart (Novolog) in addition ... TIDWMEALS SQ Last administered on 09/18 09:22; Start 09/17/16 at 17:00 Dextrose 12.5 gm PRN Q15MIN PRN IV SEE COMMENTS; Start 09/17/16 at 14:30 Insulin Aspart (Novolog) 10 units TIDAC SQ Last administered on 09/18/16 09:21 ; Start 09/17/16 at 16:30 Active Scripts Active Potassium Chloride 10 Meq Capsule.er 10 Meq PO DAILY Clindamycin Hcl 300 Mg Capsule 1 Cap PO BID Levaquin (Levofloxacin) 500 Mg Tablet 1 Tab PO DAILY Lantus Solostar (Insulin Glargine,Hum.rec.anlog) 100 Unit/1 Ml Insuln.pen 75 Unit SQ BID Humulin R (Insulin Regular, Human) 100 Unit/1 Ml Vial 0 SQ TIDAC 30 Days for BG 150-180, give 5 units regular insulin for BG 181-210, give 10 for BG 211-240, give 15 for BG 241-270, give 20 for BG 271-300, give 25 for BS 301-330, give 30 for BS 331-360, give 35 if greater than 360, call clinic ar go to ER Ultram (Tramadol Hcl) 50 Mg Tablet 50 Mg PO Q6H PRN Diflucan (Fluconazole) 150 Mg Tablet 1 Tab PO ONCE Oxycodone-Acetaminophen 5-325 (Oxycodone Hcl/Acetaminophen) 1 Each Tablet 1 Tab PO PRN TID PRN Zofran Odt (Ondansetron) 4 Mg Tab.rapdis 1 Tab SL Q8HRS Metoclopramide Hcl 5 Mg Tablet 10 Mg PO BID Phenergan (Promethazine HCl) 12.5 Mg Supp.rect 12.5 Mg RC PRN Q6HRS PRN Reported Trazodone Hcl 100 Mg Tablet 1 Tab PO QHS Amaryl (Glimepiride) 1 Mg Tablet 1 Tab PO DAILY Ultram (Tramadol Hcl) 50 Mg Tablet 50 Mg PO Q6H PRN Valium (Diazepam) 5 Mg Tablet 5 Mg PO PRN Q8HRS PRN Gabapentin 600 Mg Tablet 600 Mg PO TID Vitals/I & O Vital Sign - Last 24 Hours 09/17/16 09/17/16 09/17/16 09/17/16 11:00 11:07 15:00 15:40 Temp 98.2 98.7 98.2 98.7 Pulse 105 107 Resp 18 B/P 133/86 137/89 Pulse Ox 97 94 O2 Delivery Room Air Room Air Room Air Room Air 09/17/16 09/17/16 09/17/16 09/17/16 19:00 22:12 23:00 23:40 Temp 98.6 98.5 98.6 98.5 Pulse 102 100 Resp 18 18 16 B/P 126/98 141/93 Pulse Ox 96 94 99 O2 Delivery Room Air Room Air Room Air Room Air 09/18/16 09/18/16 09/18/16 03:00 07:00 09:18 Temp 98.5 98.0 98.5 98.0 Pulse 112 96 Resp 18 20 B/P 155/99 122/87 Pulse Ox 98 97 O2 Delivery Room Air Room Air Room Air Intake and Output 09/17/16 09/17/16 09/18/16 15:00 23:00 07:00 Intake Total 1140 ml 2667 ml Balance 1140 ml 2667 ml JEEVAN MOSQUEDA MD Sep 18, 2016 10:11
[2016-09-18 11:00] VITALS: BP 129/79
[2016-09-18] MEDS: GABAPENTIN 300 MG CAPSULE. PO SCH (14:00)
--- NOTE | 2016-09-19 23:15 | DS ---
DATE OF DISCHARGE: 09/18/2016 CHIEF COMPLAINT: Hyperglycemia. HOSPITAL COURSE: The patient is a 25-year-old woman unfortunately very well known to our service with recurrent hyperglycemic episodes. She presented with the same. She was started on her home regimen with good control of her blood sugars. Chronic pain was treated with her typical tramadol. She was deemed stable for discharge the following day. PHYSICAL EXAMINATION: Please refer to note from same day. DISCHARGE DIAGNOSIS: Hyperglycemia. DISCHARGE CONDITION: Improved. DISCHARGE DISPOSITION: To home. DISCHARGE MEDICATIONS: Please refer to the MAR. DISCHARGE INSTRUCTIONS: The patient should follow up with her PCP in 1 week. JEEVAN MOSQUEDA MD DR: UR/nts JOB#: [id number] / [id number] [facility], Alec MCDANIEL
[2016-10-19] MEDS ORDERED: TRAM-29 PO (09:29)
[2016-10-19] MEDS ORDERED: METR500T PO (09:32)
== END 2016-09-18 15:10 | disposition home or self-care (01) | DRG 639 ==
LOC: ER 23:36 → 4 NORTH 09-17 02:45
PROVIDERS: ADMIT Internal Medicine; ATTEND Internal Medicine
DX: E10.65 Type 1 diabetes mellitus with hyperglycemia (principal); E10.21 Type 1 diabetes mellitus with diabetic nephropathy; E10.40 Type 1 diabetes mellitus with diabetic neuropathy, unspecified; G89.4 Chronic pain syndrome; Z79.4 Long term (current) use of insulin; Z79.899 Other long term (current) drug therapy; Z82.49 Family history of ischemic heart disease and other diseases of the circulatory system; Z90.49 Acquired absence of other specified parts of digestive tract; Z91.19 Patient's noncompliance with other medical treatment and regimen; Z88.0 Allergy status to penicillin; Z88.6 Allergy status to analgesic agent; Z88.8 Allergy status to other drugs, medicaments and biological substances
CPT/HCPCS: 36415; 36600; 74022; 80048; 80053; 81001; 81025; 82805; 82947; 83605; 83690; 83735; 84100; 85027; 87086; 87641; 93005; 96361; 96365; 96375; J1815; J2270; J2405; J7030; J8597; S0028; 99285-25

== ENCOUNTER 2016-10-10 17:47 | Emergency (ER) | payer SELFPAY ==
[2016-10-10] MEDS ORDERED: IV NORMAL SALINE 1000ML BAG 1,000 ML IV SCH (19:00)
[2016-10-10] MEDS ORDERED: PROCHLORPERAZINE 10 MG/2 ML VIAL. IV ONE (19:15)
[2016-10-10] MEDS ORDERED: FAMOTIDINE 20 MG/2 ML VIAL IVP ONE (19:15)
[2016-10-10] MEDS ORDERED: MORPHINE SULFATE 4 MG/ML DISP.SYRIN. IV ONE (19:15)
[2016-10-10] MEDS ORDERED: PROMETHAZINE IM 25 MG/ML VIAL IM ONE (19:45)
[2016-10-10] MEDS ORDERED: MORPHINE SULFATE 4 MG/ML DISP.SYRIN. IM ONE (19:45)
[2016-10-10 20:08] LABS: BASO % 0 % (0-3); EOS % 2 % (0-3); HEMATOCRIT 42.4 % (36.0-47.0); HEMOGLOBIN 13.5 g/dL (12.0-15.5); LYMPH # 2.5 x10^3/uL (1.0-4.8); LYMPH % 34 % (24-48); MEAN CORPUSCULAR HEMOGLOBIN 25 pg (25-35); MEAN CORPUSCULAR HGB CONC 32 g/dL (31-37); MEAN CORPUSCULAR VOLUME 79 fL (79-100); MONO % 5 % (0-9); NEUT % 59 % (31-73); PLATELET COUNT 317 x10^3/uL (140-400); RED BLOOD COUNT 5.37 x10^6/uL (3.50-5.40); RED CELL DISTRIBUTION WIDTH 16.8 % (11.5-14.5); WHITE BLOOD COUNT 7.4 x10^3/uL (4.0-11.0)
[2016-10-10 20:19] LABS: CALCIUM 9.5 mg/dL (8.5-10.1); CREATININE 0.6 mg/dL (0.6-1.0); GFR 119.9; POTASSIUM 3.9 mmol/L (3.5-5.1)
--- NOTE | 2016-10-10 20:36 | PHYS DOC ---
Past Medical History Past Medical History: Diabetes-Type I, MRSA, Other Additional Past Medical Histor: neuropathy, ovarian cyst,CHRONIC ABD PAIN, VENTRAL HERNIA, hyperglycemia Past Surgical History: Appendectomy, Cholecystectomy, Oophorectomy, Other Additional Past Surgical Histo: R fallopian tube removed, L ovarian cyst removed,HERNIA REPAIR, I&D L ARM Alcohol Use: None Drug Use: None Adult General Chief Complaint Chief Complaint: BLOOD SUGAR PROBLEM HPI HPI Patient is a 25 year old female who presents with nausea and vomiting, lightheaded, low back pain, blood sugar problems. Patient reports the past 2 days her blood sugar has been running high (although finger stick in ED normal) . She is also been feeling nauseous and vomiting, having sharp back pain that is worse on the left side, and feeling lightheaded. She is a type I diabetic and has been taking her insulin as she is supposed to. She has tried Zofran, Phenergan, ibuprofen, Aleve for her symptoms with insufficient relief. No other acute complaint. Review of Systems Review of Systems Constitutional: Lightheaded. Denies fever or chills Eyes: Denies change in visual acuity or eye pain HENT: Denies nasal congestion or sore throat Respiratory: Denies cough or shortness of breath Cardiovascular: Denies chest pain GI: Nausea/vomiting. Denies abdominal pain, bloody stools or diarrhea : Denies dysuria or hematuria Musculoskeletal: Low back pain L>R Integument: Denies rash or skin lesions Neurologic: Denies headache, focal weakness or sensory changes Current Medications Current Medications Current Medications Medications (Trade) Dose Ordered Sig/Naya Start Time Stop Time Status Last Admin Dose Admin Ciprofloxacin (Cipro) 500 mg 1X ONCE 10/10/16 23:45 10/10/16 23:47 DC 10/10/16 23:51 500 MG Ciprofloxacin Lactate (Cipro 400mg Premix) 200 ml @ 200 mls/hr 1X ONCE 10/10/16 23:30 10/10/16 23:34 DC 10/10/16 23:24 200 MLS/HR Famotidine (Pepcid) 20 mg 1X ONCE 10/10/16 19:15 10/10/16 19:16 DC 10/10/16 21:36 20 MG Morphine Sulfate 4 mg 1X ONCE 10/10/16 19:45 10/10/16 19:46 DC 10/10/16 19:46 4 MG Prochlorperazine Edisylate (Compazine) 5 mg 1X ONCE 10/10/16 19:15 10/10/16 19:16 DC 10/10/16 21:38 5 MG Promethazine HCl 25 mg 25 mg 1X ONCE 10/10/16 19:45 10/10/16 19:46 DC 10/10/16 19:45 25 MG Sodium Chloride (Iv Sodium Chloride 0.9% 1000ml Bag) 1,000 ml @ 1,000 mls/hr Q1H 10/10/16 19:00 10/10/16 19:59 DC 10/10/16 21:34 1,000 MLS/HR Allergies Allergies Allergies Coded Allergies Type Severity Reaction Last Updated Verified Penicillins Allergy Intermediate 01/29/16 Yes codeine Allergy Intermediate Tolerates Dilaudid, MORPHINE 01/29/16 Yes doxycycline Allergy Intermediate 01/29/16 Yes fentanyl Allergy Intermediate 01/29/16 Yes hydrocodone Allergy Intermediate 01/29/16 Yes Physical Exam Physical Exam Constitutional: Well developed, well nourished, no acute distress, non-toxic appearance HENT: Normocephalic, atraumatic, bilateral external ears normal Eyes: EOMI, conjunctiva normal, no discharge Neck: Normal range of motion, no stridor Cardiovascular: Tachycardic, regular rhythm, no murmur Lungs & Thorax: Bilateral breath sounds clear to auscultation Abdomen: Bowel sounds normal, soft, non-distended, no TTP Skin: Warm, dry, no erythema, no rash Back: Mild CVA tenderness L>R Extremities: No obvious deformity, no edema Neurologic: Alert and oriented X 3, no gross deficits noted Current Patient Data Vital Signs Vital Signs Date Time Temp Pulse Resp B/P Pulse Ox O2 Delivery O2 Flow Rate FiO2 10/10/16 23:44 114 126/83 97 Room Air 10/10/16 17:50 97.8 20 97.8 Lab Values Laboratory Tests Test 10/10/16 19:45 10/10/16 21:45 White Blood Count 7.4x10^3/uL (4.0-11.0) Red Blood Count 5.37x10^6/uL (3.50-5.40) Hemoglobin 13.5g/dL (12.0-15.5) Hematocrit 42.4% (36.0-47.0) Mean Corpuscular Volume 79fL (79-100) Mean Corpuscular Hemoglobin 25pg (25-35) Mean Corpuscular Hemoglobin Concent 32g/dL (31-37) Red Cell Distribution Width 16.8% (11.5-14.5) H Platelet Count 317x10^3/uL (140-400) Neutrophils (%) (Auto) 59% (31-73) Lymphocytes (%) (Auto) 34% (24-48) Monocytes (%) (Auto) 5% (0-9) Eosinophils (%) (Auto) 2% (0-3) Basophils (%) (Auto) 0% (0-3) Neutrophils # (Auto) 4.4x10^3uL (1.8-7.7) Lymphocytes # (Auto) 2.5x10^3/uL (1.0-4.8) Monocytes # (Auto) 0.3x10^3/uL (0.0-1.1) Eosinophils # (Auto) 0.2x10^3/uL (0.0-0.7) Basophils # (Auto) 0.0x10^3/uL (0.0-0.2) Sodium Level 137mmol/L (136-145) Potassium Level 3.9mmol/L (3.5-5.1) Chloride Level 105mmol/L (98-107) Carbon Dioxide Level 20mmol/L (21-32) L Anion Gap 12 (6-14) Blood Urea Nitrogen 11mg/dL (7-20) Creatinine 0.6mg/dL (0.6-1.0) Estimated GFR (Cockcroft-Gault) 119.9 BUN/Creatinine Ratio 18 (6-20) Glucose Level 82mg/dL (70-99) Calcium Level 9.5mg/dL (8.5-10.1) Total Bilirubin 0.3mg/dL (0.2-1.0) Aspartate Amino Transferase (AST) 38U/L (15-37) H Alanine Aminotransferase (ALT) 29U/L (14-59) Alkaline Phosphatase 130U/L (46-116) H Total Protein 7.5g/dL (6.4-8.2) Albumin 3.6g/dL (3.4-5.0) Albumin/Globulin Ratio 0.9 (1.0-1.7) L Lipase 108U/L (73-393) Urine Collection Type Unknown Urine Color Yellow Urine Clarity Cloudy Urine pH 7.0 Urine Specific [place] 1.015 Urine Protein Negativemg/dL (NEG-TRACE) Urine Glucose (UA) 250mg/dL (NEG) Urine Ketones (Stick) Negativemg/dL (NEG) Urine Blood Large (NEG) Urine Nitrite Negative (NEG) Urine Bilirubin Negative (NEG) Urine Urobilinogen Dipstick 0.2mg/dL (0.2 mg/dL) Urine Leukocyte Esterase Small (NEG) Urine RBC Tntc/HPF (0-2) Urine WBC >40/HPF (0-4) Urine Squamous Epithelial Cells Mod/LPF Urine Bacteria Few/HPF (0-FEW) Urine Mucus Slight/LPF Urine Test Negative (NEG) Laboratory Tests 10/10/16 19:45 Laboratory Tests 10/10/16 19:45 EKG EKG EKG (my read): Sinus tachycardia, rate 117, normal axis, no acute ischemic changes Radiology/Procedures Radiology/Procedures [] Course & Med Decision Making Course & Med Decision Making Pertinent Labs and Imaging studies reviewed. (See chart for details) Patient is 25-year-old female presents with lightheadedness, nausea/vomiting, bilateral lower back pain. Will check labs, EKG to evaluate. IV fluids, nausea medication, pain medication ordered for patient comfort. Patient very difficult to obtain IV access. After multiple attempts by nursing, myself (using ultrasound), anesthesia was able to obtain IV access. Blood work largely unremarkable. Urine indicative of UTI; back pain likely due to pyelonephritis. Discussed results with patient. Dose of Cipro ordered in ED. Patient able to tolerate PO while in emergency department without difficultly or further emesis. Will discharge home with prescription for cipro as well as short prescription for pain medication. Patient has sufficient nausea medication at home. Dragon Disclaimer Dragon Disclaimer This electronic medical record was generated, in whole or in part, using a voice recognition dictation system. Departure Departure Impression: Primary Impression: Pyelonephritis Additional Impression: Nausea & vomiting Disposition: HOME, SELF-CARE Condition: IMPROVED Referrals: NO PCP (PCP) Patient Instructions: Nausea and Vomiting, Pyelonephritis, Adult Additional Instructions: Thank you for allowing us to provide care today in the Emergency Department. Take the provided medication as directed. Use caution when taking the pain medication as it can make you drowsy. Continue to take your nausea medication that you already have. Schedule a follow up appointment with your primary care doctor. Return promptly to the Emergency Department if you develop any new or concerning symptoms. Scripts Tramadol Hcl 50 Mg Tablet1 Tab PO PRN Q6HRS PRN PAIN #15 TAB Prov:PETER VILLALBA MD 10/10/16 Ciprofloxacin Hcl 500 Mg Tablet1 Tab PO BID #14 TAB Prov:PETER VILLALBA MD 10/10/16 Problem Qualifiers PETER VILLALBA MD Oct 10, 2016 20:36
--- NOTE | 2016-10-10 21:25 | EKG ---
[facility] [address] [place] [address] Test Date: 2016-10-10 Test Time: 19:39:14 Pat Name: SAMANTHA DOWD Department: Room: Gender: F Patient Scheduling Coordinator: : 1990 Requested By: PETER VILLALBA Order Number: [id number] Reading MD: Measurements Intervals [place] Rate: 117 P: -13 ND: 116 QRS: 77 QRSD: 70 T: 22 QT: 362 QTc: 510 Interpretive Statements SINUS TACHYCARDIA LEFT ATRIAL ABNORMALITY RI6.01 Unconfirmed report Compared to ECG 09/17/2016 01:23:51 Atrial abnormality now present Right-axis deviation no longer present
[2016-10-10 21:29] LABS: TOTAL BILIRUBIN 0.3 mg/dL (0.2-1.0); TOTAL PROTEIN 7.5 g/dL (6.4-8.2)
[2016-10-10 21:41] LABS: ALBUMIN 3.6 g/dL (3.4-5.0); ALBUMIN/GLOBULIN RATIO 0.9 (1.0-1.7)
[2016-10-10 21:50] LABS: BILIRUBIN,URINE NEGATIVE (NEG); GLUCOSE,URINE 250 mg/dL (NEG); NITRITE,URINE NEGATIVE (NEG); PROTEIN,URINE NEGATIVE (NEG-TRACE); UROBILINOGEN,URINE 0.2 mg/dL (0.2 mg/dL)
[2016-10-10 21:58] LABS: NEG OBC UR NEG; POS OBC UR POS
[2016-10-10 21:59] LABS: BACTERIA,URINE FEW /HPF (0-FEW); RBC,URINE TNTC /HPF (0-2); SQUAMOUS EPITHELIAL CELL,UR MOD /LPF; WBC,URINE >40 /HPF (0-4)
[2016-10-10] MEDS ORDERED: CIPR500T PO (23:16)
[2016-10-10] MEDS ORDERED: TRAM50TA PO (23:16)
[2016-10-10] MEDS ORDERED: CIPROFLOXACIN 400MG PREMIX 200 ML IV ONE (23:30)
[2016-10-10 23:44] VITALS: BP 126/83
[2016-10-10] MEDS ORDERED: CIPROFLOXACIN HCL 250 MG TABLET PO ONE (23:45)
--- NOTE | 2016-10-13 15:23 | VNOTE ---
CALL BACK NOTE CALL BACK Microbiology 10/10/16 Urine Culture - Final, Complete 10/10/16 Urine Culture Result 1 (ROLY) - Final, Complete 10/10/16 Urine Culture Result 2 (ROLY) - Final, Complete 10/10/16 Antimicrobic Susceptibility - Final, Complete Attempted to contact patient via the number provided to registration. Patient's urine culture was positive for enterococcus faecalis she was placed on Cipro at discharge in which is resistant to this culture. Attempted to contact patient left a message for her to return our call. GIA GARZON APRN Oct 13, 2016 15:23
--- NOTE | 2016-10-14 07:30 | VNOTE ---
CALL BACK NOTE CALL BACK Microbiology 10/10/16 Urine Culture - Final, Complete 10/10/16 Urine Culture Result 1 (ROLY) - Final, Complete 10/10/16 Urine Culture Result 2 (ROLY) - Final, Complete 10/10/16 Antimicrobic Susceptibility - Final, Complete Attempted to contact patient at [phone] in regards to urine culture. Message was left for patient to return call. GIA GARZON APRN Oct 14, 2016 07:30
--- NOTE | 2016-10-15 16:13 | VNOTE ---
CALL BACK NOTE CALL BACK Microbiology 10/10/16 Urine Culture - Final, Complete 10/10/16 Urine Culture Result 1 (ROLY) - Final, Complete 10/10/16 Urine Culture Result 2 (ROLY) - Final, Complete 10/10/16 Antimicrobic Susceptibility - Final, Complete urine culture positive for enterococcus faecalis. This is a contaminated urine. Results will be mailed to patient to f/u with PCP UA if needed. She has been called twice with no success. LYLE MORALES APRN Oct 15, 2016 16:13
== END 2016-10-10 23:58 | disposition home or self-care (01) ==
LOC: ER 17:47
DX: N12 Tubulo-interstitial nephritis, not specified as acute or chronic (principal); R11.2 Nausea with vomiting, unspecified; E10.65 Type 1 diabetes mellitus with hyperglycemia; E10.40 Type 1 diabetes mellitus with diabetic neuropathy, unspecified; G89.29 Other chronic pain; Z79.4 Long term (current) use of insulin; Z88.0 Allergy status to penicillin; Z88.1 Allergy status to other antibiotic agents; Z88.5 Allergy status to narcotic agent; Z88.8 Allergy status to other drugs, medicaments and biological substances
CPT/HCPCS: 36415; 80053; 81001; 81025; 82947; 83690; 85027; 87086; 93005; 96361; 96365; 96372; 96375; 99285; J0744; J0780; J2270; J2550; J7030; S0028; 87186

== ENCOUNTER 2016-10-15 23:29 | Inpatient (IN) | payer MEDICAID ==
[~2016-10-15] VITALS: Ht 170.2 cm; Wt 94.3 kg
[~2016-10-15 23:29] MED LIST changes: +CIPR500T PO
--- NOTE | 2016-10-16 00:39 | PHYS DOC ---
Past Medical History Past Medical History: Diabetes-Type I, MRSA, Other Additional Past Medical Histor: neuropathy, ovarian cyst,CHRONIC ABD PAIN, VENTRAL HERNIA, hyperglycemia Past Surgical History: Appendectomy, Cholecystectomy, Oophorectomy, Other Additional Past Surgical Histo: R fallopian tube removed, L ovarian cyst removed,HERNIA REPAIR, I&D L ARM Alcohol Use: None Drug Use: None Adult General Chief Complaint Chief Complaint: HYPERGLYCEMIA HPI HPI 25-year-old female presenting to the emergency department today with hyperglycemia, watery diarrhea, polyuria dysuria and difficulty urinating. She reports suprapubic abdominal pain that is mild intermittent nonradiating. She feels dehydrated. Onset 3-4 days. Location generalized. Duration intermittent. No alleviating factors present. Review of systems is negative for cough shortness of breath hemoptysis. She denies fevers or chills. All other review of systems is negative unless otherwise noted in history of present illness. Review of Systems Review of Systems SEE ABOVE. Current Medications Current Medications Current Medications Medications (Trade) Dose Ordered Sig/Naya Start Time Stop Time Status Last Admin Dose Admin Ondansetron HCl (Zofran) 4 mg PRN Q30MIN PRN 10/16/16 02:00 10/16/16 03:16 4 MG Allergies Allergies Allergies Coded Allergies Type Severity Reaction Last Updated Verified Penicillins Allergy Intermediate 01/29/16 Yes codeine Allergy Intermediate Tolerates Dilaudid, MORPHINE 01/29/16 Yes doxycycline Allergy Intermediate 01/29/16 Yes fentanyl Allergy Intermediate 01/29/16 Yes hydrocodone Allergy Intermediate 01/29/16 Yes Physical Exam Physical Exam Constitutional: Well developed, well nourished, no acute distress, non-toxic appearance. [] HENT: Normocephalic, atraumatic, bilateral external ears normal, dry mucous membranes, no oral exudates, nose normal. [] Eyes: PERRLA, EOMI, conjunctiva normal, no discharge. [] Neck: Normal range of motion, no tenderness, supple, no stridor. [] Cardiovascular:Heart rate regular rhythm, no murmur. tachycardic. Lungs & Thorax: Bilateral breath sounds clear to auscultation [] Abdomen: Abdomen is soft and minimally tender in the suprapubic region without rebound tenderness or guarding present. Nontender appendix or gallbladder. Negative McBurney's point. Negative Hunt sign. Skin: Warm, dry, no erythema, no rash. [] Back: No tenderness, no CVA tenderness. [] Extremities: No tenderness, no cyanosis, no clubbing, ROM intact, no edema. [] Neurologic: Alert and oriented X 3, normal motor function, normal sensory function, no focal deficits noted. Psychologic: Affect normal, judgement normal, mood normal. [] Current Patient Data Vital Signs Vital Signs Date Time Temp Pulse Resp B/P Pulse Ox O2 Delivery O2 Flow Rate FiO2 10/15/16 23:37 98.0 132 26 126/83 97 Room Air 98.0 Lab Values Laboratory Tests Test 10/16/16 01:01 10/16/16 01:55 10/16/16 02:05 POC Urine HCG, Qualitative Hcg negative (Negative) Urine Collection Type Unknown Urine Color Yellow Urine Clarity Clear Urine pH 6.5 Urine Specific [place] 1.025 Urine Protein Negativemg/dL (NEG-TRACE) Urine Glucose (UA) >=1000mg/dL (NEG) Urine Ketones (Stick) Negativemg/dL (NEG) Urine Blood Moderate (NEG) Urine Nitrite Negative (NEG) Urine Bilirubin Negative (NEG) Urine Urobilinogen Dipstick 0.2mg/dL (0.2 mg/dL) Urine Leukocyte Esterase Negative (NEG) Urine RBC 3-5/HPF (0-2) Urine WBC Occ/HPF (0-4) Urine Squamous Epithelial Cells Occ/LPF Urine Bacteria 0/HPF (0-FEW) White Blood Count 7.5x10^3/uL (4.0-11.0) Red Blood Count 5.08x10^6/uL (3.50-5.40) Hemoglobin 12.7g/dL (12.0-15.5) Hematocrit 40.1% (36.0-47.0) Mean Corpuscular Volume 79fL (79-100) Mean Corpuscular Hemoglobin 25pg (25-35) Mean Corpuscular Hemoglobin Concent 32g/dL (31-37) Red Cell Distribution Width 16.6% (11.5-14.5) H Platelet Count 222x10^3/uL (140-400) Neutrophils (%) (Auto) 66% (31-73) Lymphocytes (%) (Auto) 26% (24-48) Monocytes (%) (Auto) 6% (0-9) Eosinophils (%) (Auto) 1% (0-3) Basophils (%) (Auto) 1% (0-3) Neutrophils # (Auto) 4.9x10^3uL (1.8-7.7) Lymphocytes # (Auto) 1.9x10^3/uL (1.0-4.8) Monocytes # (Auto) 0.5x10^3/uL (0.0-1.1) Eosinophils # (Auto) 0.1x10^3/uL (0.0-0.7) Basophils # (Auto) 0.0x10^3/uL (0.0-0.2) Sodium Level 132mmol/L (136-145) L Potassium Level 4.2mmol/L (3.5-5.1) Chloride Level 95mmol/L (98-107) L Carbon Dioxide Level 23mmol/L (21-32) Anion Gap 14 (6-14) Blood Urea Nitrogen 14mg/dL (7-20) Creatinine 0.7mg/dL (0.6-1.0) Estimated GFR (Cockcroft-Gault) 100.4 Glucose Level 458mg/dL (70-99) H Serum Osmolality 294mOsm/Kg (279-304) Calcium Level 9.8mg/dL (8.5-10.1) Total Bilirubin 0.4mg/dL (0.2-1.0) Direct Bilirubin 0.1mg/dL (0.0-0.2) Aspartate Amino Transferase (AST) 23U/L (15-37) Alanine Aminotransferase (ALT) 53U/L (14-59) Alkaline Phosphatase 167U/L (46-116) H Troponin I Quantitative < 0.017ng/mL (0.000-0.055) Total Protein 8.4g/dL (6.4-8.2) H Albumin 3.8g/dL (3.4-5.0) Lipase 277U/L (73-393) Laboratory Tests 10/16/16 02:05 Laboratory Tests 10/16/16 02:05 EKG EKG [] Radiology/Procedures Radiology/Procedures [] Course & Med Decision Making Course & Med Decision Making Pertinent Labs and Imaging studies reviewed. (See chart for details) [] 25-year-old female presenting to the emergency department today with hyperglycemia. Triage vital signs afebrile with significant tachycardia, mild tachypnea. Otherwise unremarkable. Pertinent physical exam findings showed dry mucous membranes. Otherwise nontender abdomen. Clear lung sounds. Patient is given IV fluids nausea and pain medication in the emergency department. Blood work obtained. Chest x-ray obtained which showed no obvious infiltrate or pneumothorax. CBC unremarkable. Urinalysis not suggestive of infection. panel showed hyperglycemia without acidosis. Given the patient's dehydration she was admitted for further evaluation workup and care. She was given insulin in the emergency department. Regular glucose checks ordered. Dragon Disclaimer Dragon Disclaimer This electronic medical record was generated, in whole or in part, using a voice recognition dictation system. Departure Departure Impression: Primary Impression: Hyperglycemia Additional Impression: Urinary retention Disposition: ADMITTED INPATIENT Admitting Physician: Faheem Pedro Condition: STABLE Referrals: NO PCP (PCP) Problem Qualifiers HENRRY WALSH MD Oct 16, 2016 00:38
[2016-10-16] MEDS: ONDANSETRON PF 4 MG/2 ML VIAL. IV PRN ×2 (02:00→10:23)
[2016-10-16] MEDS ORDERED: ONDANSETRON PF 4 MG/2 ML VIAL. IV PRN (02:00)
[2016-10-16 02:04] LABS: BILIRUBIN,URINE NEGATIVE (NEG); GLUCOSE,URINE >=1000 mg/dL (NEG); NITRITE,URINE NEGATIVE (NEG); PH,URINE 6.5; PROTEIN,URINE NEGATIVE (NEG-TRACE); UROBILINOGEN,URINE 0.2 mg/dL (0.2 mg/dL)
[2016-10-16 02:14] LABS: BACTERIA,URINE 0 /HPF (0-FEW); SQUAMOUS EPITHELIAL CELL,UR OCC /LPF; WBC,URINE OCC /HPF (0-4)
[2016-10-16 02:23] LABS: BASO % 1 % (0-3); EOS % 1 % (0-3); HEMATOCRIT 40.1 % (36.0-47.0); HEMOGLOBIN 12.7 g/dL (12.0-15.5); LYMPH # 1.9 x10^3/uL (1.0-4.8); LYMPH % 26 % (24-48); MEAN CORPUSCULAR HEMOGLOBIN 25 pg (25-35); MEAN CORPUSCULAR HGB CONC 32 g/dL (31-37); MEAN CORPUSCULAR VOLUME 79 fL (79-100); MONO % 6 % (0-9); NEUT % 66 % (31-73); PLATELET COUNT 222 x10^3/uL (140-400); RED BLOOD COUNT 5.08 x10^6/uL (3.50-5.40); RED CELL DISTRIBUTION WIDTH 16.6 % (11.5-14.5); WHITE BLOOD COUNT 7.5 x10^3/uL (4.0-11.0)
[2016-10-16 02:33] LABS: CALCIUM 9.8 mg/dL (8.5-10.1); CREATININE 0.7 mg/dL (0.6-1.0); GFR 100.4; POTASSIUM 4.2 mmol/L (3.5-5.1)
[2016-10-16 02:39] LABS: ALBUMIN 3.8 g/dL (3.4-5.0); DIRECT BILIRUBIN 0.1 mg/dL (0.0-0.2); TOTAL BILIRUBIN 0.4 mg/dL (0.2-1.0); TOTAL PROTEIN 8.4 g/dL (6.4-8.2)
[2016-10-16] MEDS: MORPHINE SULFATE 2 MG/ML DISP.SYRIN. IV PRN ×6 (03:17→16:37)
[2016-10-16] MEDS ORDERED: INSULIN REGULAR 100 UNIT/ML 10ML VIAL. IV ONE (03:30)
[2016-10-16] MEDS ORDERED: IV NORMAL SALINE 1000ML BAG 1,000 ML IV ONE ×2 (03:30→03:45)
[2016-10-16 04:00] VITALS: BP 110/69
[2016-10-16] MEDS ORDERED: INSU100I17 SQ (04:37)
--- NOTE | 2016-10-16 06:35 | EKG ---
[facility] [address] [place] [address] Test Date: 2016-10-16 Test Time: 01:36:19 Pat Name: SAMANTHA DOWD Department: Room: 444 1 Gender: F [employer]: : 1990 Requested By: HENRRY WALSH Order Number: [id number] Reading MD: Elaine Agrawal Measurements Intervals [place] Rate: 123 P: -12 DC: 122 QRS: 114 QRSD: 74 T: 26 QT: 352 QTc: 510 Interpretive Statements SINUS TACHYCARDIA ABNORMAL RIGHT AXIS DEVIATION RI6.01 Unconfirmed report Compared to ECG 09/17/2016 01:23:51 No significant changes Electronically Signed On 10-17-2016 20:13:35 CDT by Elaine Agrawal
[2016-10-16 07:00] VITALS: BP 125/72
--- NOTE | 2016-10-16 07:11 | RAD ---
Portable chest, 10/16/2016: History: Hyperglycemia Comparison is made to a study from 09/17/2016. The depth of inspiration is suboptimal. The heart size is normal. The lungs are clear. There is no evidence of pleural fluid. IMPRESSION: No acute cardiopulmonary abnormality is detected.
[2016-10-16 11:00] VITALS: BP 125/76
[2016-10-16] MEDS ORDERED: DEXTROSE 50% 25 GM / 50ML DISP.SYRIN. IV PRN (12:00)
[2016-10-16] MEDS ORDERED: DIAZEPAM 5 MG TABLET PO PRN (12:15)
[2016-10-16] MEDS: GABAPENTIN 300 MG CAPSULE. PO SCH ×2 (13:06→21:47)
[2016-10-16] MEDS: INSULIN DETEMIR 300 UNITS/3 ML INSULN.PEN. SQ SCH ×2 (13:23→21:50)
[2016-10-16] MEDS: INSULIN ASPART 300 UNITS/3 ML INSULN.PEN SQ SCH ×2 (13:23→17:42)
--- NOTE | 2016-10-16 14:55 | HP ---
ADMIT DATE: 10/16/2016 CHIEF COMPLAINT: Abdominal pain. HISTORY OF PRESENT ILLNESS: The patient is a pleasant 25-year-old female, well known to our service. She is admitted periodically with abdominal pain and complications of her multiple medical issues. Basically, she has got abdominal pain. She also had hyperglycemia. She has some watery diarrhea and polyuria and difficulty with urination. She reported a suprapubic abdominal pain. She felt dehydrated. I have discussed the case with the ER physician. We have admitted her for IV fluids and pain medicines and better control of her hyperglycemia. PAST MEDICAL HISTORY: Noncompliance, diabetes, MRSA, neuropathy, ovarian cyst, chronic pain, possible narcotic dependence, ventral hernia, hyperglycemia, appendectomy, cholecystectomy, oophorectomy, right hernia repair, and I and D of the left arm. ALLERGIES: PENICILLIN, CODEINE, DOXYCYCLINE, FENTANYL, AND HYDROCODONE. FAMILY HISTORY: Coronary artery disease. SOCIAL HISTORY: She does not drink, smoke, or take drugs. MEDICATIONS: Reviewed. Greg [facility]. REVIEW OF SYSTEMS: GENERAL: No history of weight change, weakness or fevers. SKIN: No bruising, hair changes or rashes. EYES: No blurred, double or loss of vision. NOSE AND THROAT: No history of nosebleeds, hoarseness or sore throat. HEART: No history of palpitations, chest pain or shortness of breath on exertion. LUNGS: Denies cough, hemoptysis, wheezing or shortness of breath. GASTROINTESTINAL: She complains of abdominal pain. GENITOURINARY: No history of frequency, urgency, hesitancy or nocturia. NEUROLOGIC: Denies history of numbness, tingling, tremor, or weakness. PSYCHIATRIC: No history of panic, anxiety or depression. ENDOCRINE: No history of heat or cold intolerance, polyuria or polydipsia. EXTREMITIES: Denies muscle weakness, joint pain, pain on walking or stiffness. PHYSICAL EXAMINATION: VITAL SIGNS: Temperature afebrile, pulse 103, respirations 20, blood pressure 124/76. GENERAL: She is alert, cooperative. Her is present. He is sleeping on the floor. HEART: Distant S1 and S2, slightly tachycardic. LUNGS: Clear. ABDOMEN: Soft. Decreased bowel sounds, obese, but tender. EXTREMITIES: No edema. SKIN: She has got some tattoos. ENDOCRINE: No thyromegaly. LYMPHATICS: No cervical nodes. HEMATOPOIETIC: No bruising. LABORATORY DATA: White count ____, hemoglobin 12.7, platelets 222. Electrolytes: Sodium 132, potassium 4.2, chloride 95, anion gap is 14, and glucose is ranging from 350 to 293. Chest x-ray is negative. ASSESSMENT AND PLAN: Abdominal pain, hyperglycemia, and urinary retention. The patient has been admitted. We will give her IV insulin, IV fluids. Continue her home medicines, repeat her labs frequently, and p.r.n. narcotics. Physical therapy and occupational therapy. EDGARD GUTIERREZ DO DR: ROSY/ric JOB#: [id number] / [id number]
[2016-10-16 15:00] VITALS: BP 137/80
[2016-10-16] MEDS: TRAMADOL 50 MG TABLET. PO PRN (17:38)
[2016-10-16 19:00] VITALS: BP 119/78
[2016-10-16] MEDS ORDERED: MORPHINE SULFATE 2 MG/ML DISP.SYRIN. IV PRN (19:01)
[2016-10-16 23:00] VITALS: BP 109/62
[2016-10-17 03:00] VITALS: BP 118/69
[2016-10-17] MEDS: TRAMADOL 50 MG TABLET. PO PRN ×3 (04:58→23:55)
[2016-10-17 05:22] LABS: BASO % 0 % (0-3); EOS % 2 % (0-3); HEMATOCRIT 39.5 % (36.0-47.0); HEMOGLOBIN 12.3 g/dL (12.0-15.5); LYMPH # 1.8 x10^3/uL (1.0-4.8); LYMPH % 23 % (24-48); MEAN CORPUSCULAR HEMOGLOBIN 25 pg (25-35); MEAN CORPUSCULAR HGB CONC 31 g/dL (31-37); MEAN CORPUSCULAR VOLUME 81 fL (79-100); MONO % 9 % (0-9); NEUT % 65 % (31-73); PLATELET COUNT 246 x10^3/uL (140-400); RED BLOOD COUNT 4.89 x10^6/uL (3.50-5.40); WHITE BLOOD COUNT 7.7 x10^3/uL (4.0-11.0)
[2016-10-17 05:51] LABS: CALCIUM 8.9 mg/dL (8.5-10.1); CREATININE 0.6 mg/dL (0.6-1.0); GFR 119.9; POTASSIUM 4.7 mmol/L (3.5-5.1)
[2016-10-17 07:00] VITALS: BP 115/74
[2016-10-17] MEDS: INSULIN ASPART 300 UNITS/3 ML INSULN.PEN SQ SCH ×3 (08:32→16:49)
[2016-10-17] MEDS: INSULIN DETEMIR 300 UNITS/3 ML INSULN.PEN. SQ SCH ×2 (08:33→22:23)
[2016-10-17] MEDS: GABAPENTIN 300 MG CAPSULE. PO SCH ×3 (09:00→21:00)
[2016-10-17 11:00] VITALS: BP 110/67
[2016-10-17] MEDS ORDERED: HYDROCODONE/APAP 5/325MG TABLET. PO PRN (14:00)
--- NOTE | 2016-10-17 14:13 | PDOC ---
PROGRESS NOTES Chief Complaint Chief Complaint Hyperglycemia ASSESSMENT AND PLAN: 1. Hyperglycemia: not adherent to regimen/ unwilling to manage with frequent admits to hospital. continue long-and short-acting insulin. ISS 2. Chronic pelvic pain/ drug seeking: no IV narcotics. lortab PRN 3. Anxiety: never observed in hospital, but requests benzos. avoid, given lethargy and sleeping. 4. ?urinary incontinence: contrary to her assertion, has been observed to urinate. obtain bladder scan 4. Dispo: home hopefully tomorrow Vitals Vitals Vital Signs Date Time Temp Pulse Resp B/P Pulse Ox O2 Delivery O2 Flow Rate FiO2 10/17/16 11:00 97.4 105 14 110/67 94 Room Air 97.4 Physical Exam General: Alert, Oriented X3, Cooperative Heart: Regular rate Lungs: Clear Abdomen: Normal bowel sounds, Soft, No tenderness Extremities: No clubbing, No edema Skin: No rashes Labs LABS Laboratory Tests Test 10/16/16 16:45 10/16/16 20:30 10/17/16 05:00 10/17/16 08:11 Glucose (Fingerstick) 153mg/dL (70-99) 127mg/dL (70-99) 367mg/dL (70-99) White Blood Count 7.7x10^3/uL (4.0-11.0) Red Blood Count 4.89x10^6/uL (3.50-5.40) Hemoglobin 12.3g/dL (12.0-15.5) Hematocrit 39.5% (36.0-47.0) Mean Corpuscular Volume 81fL (79-100) Mean Corpuscular Hemoglobin 25pg (25-35) Mean Corpuscular Hemoglobin Concent 31g/dL (31-37) Red Cell Distribution Width 17.0% (11.5-14.5) Platelet Count 246x10^3/uL (140-400) Neutrophils (%) (Auto) 65% (31-73) Lymphocytes (%) (Auto) 23% (24-48) Monocytes (%) (Auto) 9% (0-9) Eosinophils (%) (Auto) 2% (0-3) Basophils (%) (Auto) 0% (0-3) Neutrophils # (Auto) 5.0x10^3uL (1.8-7.7) Lymphocytes # (Auto) 1.8x10^3/uL (1.0-4.8) Monocytes # (Auto) 0.7x10^3/uL (0.0-1.1) Eosinophils # (Auto) 0.2x10^3/uL (0.0-0.7) Basophils # (Auto) 0.0x10^3/uL (0.0-0.2) Sodium Level 138mmol/L (136-145) Potassium Level 4.7mmol/L (3.5-5.1) Chloride Level 103mmol/L (98-107) Carbon Dioxide Level 22mmol/L (21-32) Anion Gap 13 (6-14) Blood Urea Nitrogen 14mg/dL (7-20) Creatinine 0.6mg/dL (0.6-1.0) Estimated GFR (Cockcroft-Gault) 119.9 Glucose Level 260mg/dL (70-99) Calcium Level 8.9mg/dL (8.5-10.1) Test 10/17/16 11:00 Glucose (Fingerstick) 312mg/dL (70-99) Review of Systems Review of Systems moving on bed w/o difficulties. worried about bladder status JEEVAN MOSQUEDA MD Oct 17, 2016 14:13
[2016-10-17 15:00] VITALS: BP 122/79
[2016-10-17 19:00] VITALS: BP 97/56
[2016-10-17] MEDS: OXYCODONE/APAP 5/325 TABLET. PO PRN (20:11)
[2016-10-17] MEDS ORDERED: INSULIN ASPART 300 UNITS/3 ML INSULN.PEN SQ ONE (22:30)
[2016-10-17 23:00] VITALS: BP 114/58
[2016-10-18] MEDS: OXYCODONE/APAP 5/325 TABLET. PO PRN ×2 (02:12→20:28)
[2016-10-18 03:00] VITALS: BP 135/79
--- NOTE | 2016-10-18 06:33 | ACF ---
Admission Forms Criteria GENERAL ADMISSION CRITERIA (Place 'X' for any and all applicable criteria): Admission is indicated for ANY ONE of the following: [ ]I. Hemodynamic instability as indicated by ANY ONE of the following(1)(2) (3)(4)(5): [ ]a) Vital sign abnormality not readily corrected by appropriate treatment within 12 to 24 hours indicated by ANY ONE of the following: [ ]i) Hypotension [ ]ii) Symptomatic Tachycardia unresponsive to treatment (eg , analgesia, fluids, sedation as indicated) [ ]iii) Orthostatic vital sign changes unresponsive to treatment (eg, fluids) [ ]b) Vital sign abnormality that is severe indicated by ANY ONE of the following: [ ]i) Inadequate perfusion indicated by ANY ONE of the following: [ ]1) Lactic acidosis (greater than 2 mmol/L) [ ]2) New abnormal capillary refill (greater than 3 seconds) [ ]3) Other metabolic acidosis (arterial pH less than 7.35) not otherwise explained [ ]4) Reduced urine output [ ]5) Altered mental status [ ]6) Myocardial Ischemia [ ]v) Mean arterial pressure[A] less than 60 mm Hg [ ]vi) Mean arterial pressure[A] less than 70 mm Hg after 30 minutes of appropriate treatment (eg, fluid resuscitation) [ ]vii) IV inotropic or vasopressor medication required to maintain adequate blood pressure or perfusion [ ]viii) Sustained heart rate greater than 120 beats per minute in adult or child 6 years or older[B]] [ ]II. Hypertension requiring inpatient treatment as indicated by ANY ONE of the following(6)(7)(8): [ ]a) SBP greater than 220 mm Hg or DBP greater than 120 mm Hg despite treatment [ ]b) SBP greater than 140 mm Hg or DBP greater than 100 mm Hg with evidence of acute end organ damage as indicated by ANY ONE of the following: [ ]i) Encephalopathy [ ]ii) Acute renal failure as indicated by new onset of ANY ONE of the following(9)(10)(11)(12)(13): [ ]1) A 3-fold rise in serum creatinine from baseline [ ]2) Serum creatinine greater than 4 mg/dL ( 354 micromoles/L) with acute rise greater than 0.5 mg/dL (44.2 micromoles/L) [ ]3) Reduction of more than 75% in estimated glomerular filtration rate from baseline [ ]4) Estimated glomerular filtration rate less than 35 mL/min/1.73m2 (0.59 mL/sec/1.73m2) in child up to 18 years of age [ ]5) Cessation of urine output indicated by ALL of the following: [ ]A. Adequate volume status [ ]B. Inadequate urine output as indicated by ANY ONE of the following: [ ]a. Urine output less than 0.3 mL/kg/hr for 24 hours [ ]b. Anuria (urine output less than 0.1 mL/kg/hr) for 12 hours [ ]iii) Aortic dissection [ ]iv) Myocardial ischemia [ ]v) Left ventricular heart failure [ ]vi) Retinal hemorrhage [ ]vii) Other significant finding [ ]c) Hypertension in child requiring inpatient treatment as indicated by ALL of the following(14)(15)(16): [ ]i) Outpatient treatment not effective, not available, or not appropriate [ ]ii) SBP or DBP greater than 95th percentile for age [ ]iii) Evidence of acute end organ damage as indicated by ANY ONE of the following: [ ]1) Altered mental status [ ]2) Acute renal failure as indicated by new onset of ANY ONE of the following(9)(10)(11)(12)(13): [ ]A. A 3-fold rise in serum creatinine from baseline [ ]B. Serum creatinine greater than 4 mg/dL (354 micromoles/L) with acute rise greater than 0.5 mg/dL (44.2 micromoles/L) [ ]C. Reduction of more than 75% in estimated glomerular filtration rate from baseline [ ]D. Estimated glomerular filtration rate less than 35 mL/min/1.73m2 (0.59 mL/sec/1.73m2)in child up to 18 years of age [ ]E. Cessation of urine output indicated by ALL of the following: [ ]a. Adequate volume status [ ]b. Inadequate urine output as indicated by ANY ONE of the following: [ ]1) Urine output less than 0.3 mL/kg/hr for 24 hours [ ]2) Anuria (urine output less than 0.1 mL/kg/hr) for 12 hours [ ]3) Severe headache [ ]4) Visual disturbance [ ]5) Retinal hemorrhage [ ]6) Other significant finding [ ]III. Acute cardiac or peripheral ischemia as indicated by ANY ONE of the following: [ ]a) Acute coronary syndrome(17)(18) [ ]b) Acute peripheral ischemia (eg, pulseless, cool, mottled, or cyanotic extremity)(19) [ ]IV. Cardiac arrhythmias or findings of immediate concern indicated by ANY ONE of the following(20)(21): [ ]a) Heart rhythms that are inherently dangerous or unstable indicated by ANY ONE of the following(22)(23)(24): [ ]i) Resuscitated ventricular fibrillation or cardiac arrest [ ]ii) Ventricular escape rhythm [ ]iii) Sustained ventricular tachycardia (30 seconds or more of ventricular rhythm at greater than 100 beats per minute) [ ]iv) Nonsustained ventricular tachycardia and ANY ONE of the following: [ ]1) Suspected cardiac ischemia as cause or consequence of ventricular tachycardia [ ]2) In setting of acute myocarditis [ ]b) Unstable cardiac conduction defects indicated by ANY ONE of the following(24)(25)(26): [ ]i) Type II second-degree atrioventricular block [ ]ii) Third-degree atrioventricular block [ ]iii) New-onset left bundle branch block with suspected myocardial ischemia [ ]c) Any heart rhythm and ANY ONE of the following(22)(23)(27)(28)( 29): [ ] i) Continuous long-term ECG monitoring needed (eg, initiation of drug requiring monitoring for more than 24 hours) [ ] ii) Patient has automatic implanted cardioverter defibrillator that is repeatedly firing, malfunctioning, or in need of immediate adjustment of settings beyond the scope of ambulatory or observation care. [ ]d) Heart rhythms of concern due to ANY ONE of the following: [ ]i) Hypotension [ ]ii) Respiratory distress [ ]iii) Association with other significant symptoms (eg, bradycardia with syncope or ongoing dizziness, supraventricular tachycardia with chest pain) (27)(28) (30) [ ] V. Severe heart failure as indicated by ANY ONE of the following ( 31)(32): [ ]a) Respiratory distress [ ]b) Hypotension [ ]c) Anasarca (refractory to outpatient therapy) [ ]d) Cardiac arrhythmias of immediate concern [ ]e) Myocardial ischemia [ ]. Respiratory abnormalities, including ANY ONE of the following(33)(34) (35)(36): [ ]a) Respiratory rate greater than 30 breaths per minute unresponsive to treatment [A] [ ]b) New saturation of arterial oxygen less than 90% [ ]c) New partial pressure of carbon dioxide greater than 44 mm Hg ( 5.9 kPa) [ ]d) Supplemental oxygen or respiratory treatments needed that are new or not performable at other levels of care [ ]e) New-onset cyanosis [ ]f) Inability to protect airway [ ]g) Chronic lung disease with severe deterioration (not responsive to emergency and observation care treatment as appropriate) as indicated by ANY ONE of the following(34)(36 ): [ ]i) SaO2 5% below baseline in patient with chronic hypoxemia [ ]ii) New requirement for supplemental oxygen to keep SaO2 at baseline or acceptable level [ ]iii) Required supplemental oxygen performable only in acute inpatient setting [ ]iv) Severe airflow or ventilation abnormalities [ ]v) Previously mobile patient unable to walk between rooms [ ]vi Inability to eat or sleep due to dyspnea [ ]vii) Rapid rate of exacerbation onset [ ]viii) Altered mental status ]VII. Severe airflow or ventilation abnormalities (not responsive to emergency and observation care treatment as appropriate) as indicated by ANY ONE of the following(33)(34)(35)(37): [ ]a) PCO2 greater than 42 mm Hg (5.6 kPa) and pH less than 7.35 (new ) [ ]b) Documented PCO2 increased more than 5 mm Hg (0.7 kPa) from disease baseline [ ]c) Airflow measurements [B] less than 60% of previous best or predicted (eg, peak expiratory flow rate less than 300 L/minute) despite intensive emergent treatment [C] [ ]d) Required respiratory treatments that are performable only in acute inpatient setting [ ]VIII. Impending or actual respiratory arrest ( Also use Respiratory Failure GRG for severe respiratory disease and long-term mechanical ventilation patients) [ ]IX. Neurologic abnormalities, including ANY ONE of the following: [ ]a) New findings that suggest ANY ONE of the following: [ ]i) SOLDERING MACH[employer] infection(38) [ ]ii) Cerebral bleeding, ischemia, or vasospasm(39)(40) [ ]iii) Increased intracranial pressure, hydrocephalus, or cerebral edema(41)(42)(43) [ ]iv) Spinal cord injury(44) [ ]b) Uncontrolled seizures(45) [ ]c) New-onset coma (eg, Dorothea coma scale score less than 9) or unexplained abnormal mental status (eg, Dorothea coma scale score less than 14) [D](41)(46)(47) [ ]X. New-onset severe neurologic findings requiring inpatient care; examples include(42)(48)(49): [ ]a) Papilledema [ ]b) Cerebral edema [ ]c) Mass effect on CT scan [ ]XI. Suspected acute intra-abdominal process with peritoneal signs, abdominal mass, or similar findings (50)(51)(52) [X]XII. Severe physiologic disorder remaining after emergency or observation level care (as appropriate) as indicated by ANY ONE of the following (53): [ ]a) Significant dehydration [ ]b) Diabetic ketoacidosis [X]c) Hyperglycemic hyperosmolar state (eg, osmolality greater than 320 mOsm/kg (mmol/kg) [ ]d) Hypoglycemia [ ]e) Other (new) acid-base disorder with pH less than 7.35 or greater than 7.5(54) [ ]f) Thyroid storm (55) [ ]g) Myxedema coma (55) [ ]XIII. Abdominal abnormalities with ANY ONE of the following(56)(57): [ ]a) Absent bowel sounds with complete ileus [ ]b) Signs of intestinal obstruction or peritonitis [E] [ ]c) Nausea and vomiting that cannot be controlled with outpatient or observation care [ ]XIV. Acute renal failure as indicated by new onset of ANY ONE of the following(9)(10)(11)(12)(13): [ ]a) A 3-fold rise in serum creatinine from baseline [ ]b) Serum creatinine greater than 4 mg/dL (354 micromoles/L) with acute rise greater than 0.5 mg/dL (44.2 micromoles/L) [ ]c) Reduction of more than 75% in estimated glomerular filtration rate from baseline [ ]d) Estimated glomerular filtration rate less than 35 mL/min/ 1.73m2 (0.59 mL/sec/1.73m2) in child up to 18 years of age [ ]e) Cessation of urine output indicated by ALL of the following: [ ]i) Adequate volume status [ ]ii) Inadequate urine output as indicated by ANY ONE of the following: [ ]1) Urine output less than 0.3 mL/kg/hr for 24 hours [ ]2) Anuria (urine output less than 0.1 mL/kg/hr) for 12 hours [ ]XV. Significant uremic complications as indicated by ANY ONE of the following(58)(59)(60): [ ]a) Outpatient therapy is ineffective or not feasible for ANY ONE of the following: [ ]i) Severe heart failure [ ]ii) Severehypertension [ ]iii) Pleural effusion [ ]iv) Pericarditis or pericardial effusion [ ]b) Cardiac arrhythmias of immediate concern [ ]c) Intractable nausea or vomiting [ ]d) Recurrent seizures [ ]e) Encephalopathy [ ]f) Bleeding abnormalities (eg, platelet dysfunction) with active (eg, gastrointestinal) bleeding [ ]g) Dialysis indicated before long-term access or ambulatory arrangements can be made [ ]h) Significant metabolic or electrolyte abnormalities (eg, severe acidosis or hyperkalemia) [ ]XVI. High fever or other high-risk infection situation as indicated by ANY ONE of the following(61)(62)(63)(64): [ ]a) Outpatient and observation care antimicrobial treatment unavailable, not effective, or not appropriate [ ]b) Documented bacteremia [ ]c) Temperature greater than 40.5 degrees C (104.9 degrees F) ( oral) [ ]d) Temperature greater than 39.5 degrees C (103.1 degrees F) ( oral) or less than 36 degrees C (96.8 degrees F) (rectal) that does not respond to e treatment and observation care [ ] XVII. Temperature less than 95 degrees F (35 degrees C)(rectal)(65) [ ] XVIII. Severe nutritional abnormalities as indicated by ALL of the following (66)(67): [ ]a) Inability to tolerate or establish sufficient oral or other enteral nutrition in outpatient setting [ ]b) Parenteral nutrition regimen need that must be implemented on inpatient basis [ ] XIX. Severe electrolyte abnormalities indicated by ALL of the following(68) (69)(70): [ ]a) Electrolytes and associated findings are not as expected for patient baseline or acceptable treatment effects. [ ]b) Severe abnormalities indicated by ANY ONE of the following: [ ]i) Sodium less than 130 mEq/L (mmol/L) (new) [ ]ii)Sodium less than 135 mEq/L (mmol/L) with ANY ONE of the following: [ ]1) Uncorrectable (to near normal or chronic baseline) after trial of outpatient and emergency treatment [ ]2) Altered mental status [ ]3) Seizures [ ]4) Severe medical etiology requiring inpatient management (eg, heart failure, hypovolemia) [ ]iii) Sodium greater than 155 mEq/L (mmol/L) [ ]iv) Sodium greater than 150 mEq/L (mmol/L) with ANY ONE of the following: [ ]1) Uncorrectable (to near normal or chronic baseline) with outpatient and emergency treatment [ ]2) Altered mental status [ ]3) Seizures [ ]4) Severe medical etiology (eg, hypovolemia, diabetes insipidus) [ ]v) Potassium less than 2.5 mEq/L (mmol/L) despite outpatient and emergency treatment [ ]vi) Potassium less than 3 mEq/L (mmol/L) with ANY ONE of the following: [ ]1) Weakness [ ]2) Cardiac abnormality (eg, arrhythmia, conduction disturbance) [ ]3) Cardiac ischemia [ ]4) Ileus [ ]5) Ongoing medical cause requiring inpatient management (eg, acute renal wasting or SIADH) [ ]6) Other severe symptoms [ ]vii) Potassium greater than 6.5 mEq/L (mmol/L) [ ]viii) Potassium greater than 5 mEq/L (mmol/L) with ANY ONE of the following: [ ]1) Uncorrectable (to near normal or chronic baseline) with outpatient and emergency treatment [ ]2) Severe ECG findings [F] [ ]3) Acute worsening of renal failure (creatinine greater than 2.5 mg/dL (221 micromoles/L) or significant elevation for age and size) [ ]4) Severe weakness [ ]5) Severe medical etiology (eg, hemolysis, infection, drug overdose) [ ]ix) Calcium less than 7 mg/dL (1.75 mmol/L) despite outpatient and emergency treatment (72) [ ]x) Calcium less than 8 mg/dL (2 mmol/L) with significant symptoms or findings; examples include(72): [ ]1) Altered mental status [ ]2) Muscle spasms [ ]3) Seizures [ ]4) Breathing difficulty [ ]5) Cardiac abnormality (eg, arrhythmia or conduction disturbance) [ ]xi) Calcium greater than 14 mg/dL (3.5 mmol/L)(72) [ ]xii) Calcium greater than 12 mg/dL (3 mmol/L) with ANY ONE of the following(72): [ ]1) Uncorrectable (to near normal or chronic baseline) with outpatient and emergency treatment [ ]2) Significant dehydration or hypovolemia as indicated by ALL of the following(70)(73)(74): [ ]A. Not resolved with initial treatments [ ]B. Clinically significant dehydration as indicated by ANY ONE of the following: [ ]a. Vomiting refractory to outpatient treatment (ie, precluding oral rehydration) [ ]b. Inability to drink [ ]c. Hypernatremia or other electrolyte abnormality unable to be corrected with outpatient and emergency treatment [ ]d. Failure to remain hydrated with outpatient therapy [ ]e. Reduced urine output [ ]f. Hypotension [ ]g. Serious cause for dehydration requiring acute hospitalization (eg, bowel obstruction, increased intracranial pressure, infectious cause) [ ]h. Child with ANY ONE of the following(75): [ ]1) Severe abdominal tenderness [ ]2) Adequate care not available at home [ ]3) Severe dehydration ( greater than 9% loss of body weight) [ ]4) Significant symptoms or findings; examples include: [ ]A. Altered mental status [ ]B. Cardiac abnormality (eg, arrhythmia, conduction disturbance) [ ]C. Malignant etiology requiring inpatient treatment [ ]xiii) Phosphorus less than 1 mg/dL (0.32 mmol/L) [ ]xiv) Phosphorus less than 1.5 mg/dL (0.48 mmol/L) with ANY ONE of the following: [ ]1) Patient unresponsive to outpatient and emergency treatment [ ]2) Significant symptoms or findings; examples include: [ ]A. Weakness [ ]B. Altered mental status [ ]C. Breathing difficulty [ ]D. Seizures [ ]E. Rhabdomyolysis [ ]xv) Phosphorus greater than 10 mg/dL (3.2 mmol/L) [ ]xvi) Phosphorus greater than 4.5 mg/dL (1.45 mmol/L) (new) with ANY ONE of the following: [ ]1) Severe medical etiology (eg, crush injury, acute renal failure) [ ]2) Associated hypocalcemia with significant findings; examples include: [ ]A. Neurologic symptoms [ ]B. Altered mental status [ ]C. Muscle spasms [ ]D. Seizures [ ]E. Breathing difficulty [ ]F. Cardiac abnormality (eg, arrhythmia, conduction disturbance) [ ]xvii) Magnesium less than 1 mg/dL (0.41 mmol/L) [ ]xviii) Magnesium less than 1.5 mg/dL (0.62 mmol/L) with ANY ONE of the following: [ ]1) Patient unresponsive to outpatient and emergency treatment [ ]2) Associated hypocalcemia with significant findings; examples include: [ ]A. Altered mental status [ ]B. Muscle spasms [ ]C. Seizures [ ]D. Breathing difficulty [ ]E. Cardiac abnormality (eg, arrhythmia , conduction disturbance) [ ]3) Associated hypokalemia (potassium less than 3 mEq/L (mmol/L)) with risk of arrhythmia [ ]xix) Magnesium greater than 4 mEq/L (2 mmol/L) [ ]xx) Magnesium greater than 2.5 mEq/L (1.25 mmol/L) with significant symptoms or findings; examples include: [ ]1) Weakness [ ]2) Altered mental status [ ]3) Cardiac abnormality (eg, arrhythmia, conduction disturbance) [ ]4) Breathing difficulty [ ]5) Severe medical etiology (eg, renal failure, hypovolemia) [ ]xxi) Uric acid greater than 20 mg/dL (1190 micromoles/L)(76) [ ]xxii) Uric acid greater than 8 mg/dL (476 micromoles/L) with significant symptoms or findings of tumor lysis syndrome; examples include(76): [ ]1) Creatinine greater than 1.5 times upper limit of normal [ ]2) Cardiac abnormality (eg, arrhythmia, conduction disturbance) [ ]3) Seizure [ ]XX. Acute blood loss causing significant abnormality as indicated by ANY ONE of the following(77)(78): [ ]a) Hemoglobin less than 10 g/dL (100 g/L) (not baseline) [ ]b) Hematocrit less than 30% (0.30) (not baseline) [ ]c) Repeat hematocrit decreased more than 2% (0.02) [ ]d) Uncontrolled bleeding [ ]XXI. Severe anemia indicated by ANY ONE of the following(78)(79): [ ]a) Altered mental status [ ]b) Chest pain [ ]c) Exertional dyspnea [ ]d) Syncope [ ]e) Other findings suggesting inadequate perfusion [ ]f) Treatment with transfusion or volume replacement is ineffective at resolving ANY ONE of the following [G]: [ ]i) Tachycardia for age [ ]ii) Orthostatic vital sign changes as indicated by ANY ONE of the following(80): [ ]1) Fall in SBP of 20 mm Hg or more 1 to 3 minutes after patient sits or stands from recumbent position [ ]2) Fall in DBP of 10 mm Hg or more 1 to 3 minutes after patient sits or stands from recumbent position [ ]XXII. High-risk low platelet count as indicated by ANY ONE of the following( 81)(82): [ ]a) Severe or life-threatening bleeding (eg, intracranial, major gastrointestinal, or extensive mucosal bleeding), with any reduced platelet count [ ]b) Platelet count less than 20,000/mm3 (20 x109/L) with any active bleeding [ ]c) Platelet count less than 10,000/mm3 (10 x109/L) with minor purpura or petechiae [ ]d) Platelet count less than 5000/mm3 (5 x109/L) [ ]e) Low platelet count with hemolytic anemia [ ]XXIII. Disseminated intravascular coagulation(77)(83) [ ]XXIV. Severe adverse drug or systemic toxin reaction requiring inpatient treatment; examples include(84)(85): [ ]a) Serotonin syndrome(86) [ ]b) Neuroleptic malignant syndrome(86) [ ]c) Cholinergic syndrome with severe symptoms (eg, bronchorrhea, weakness, mental status changes, seizures) [ ]d) Sympathetic syndrome with severe symptoms (eg, seizures, mental status changes, cardiac dysrhythmias) [ ]e) Anticholinergic syndrome [ ]XXV. Severe pain requiring acute inpatient management as indicated by ALL of the following (87)(88)(89): [ ]a) Continuous or frequent (eg, every 2 to 4 hours) parenteral analgesics required [H] [ ]b) Rapid improvement expected from treatment or acute intervention (eg, surgery, anesthesia procedure) [ ]XXVI.Severe behavioral health issues judged unmanageable at a lower level of care (eg, residential) in a patient who is ANY ONE of the following(91) [ ]a) Acutely suicidal [ ]b) A danger to self (eg, self-mutilating or suicidal behavior) [ ]c) A danger to others (eg, assaultive or homicidal behavior) [ ]d) Incapacitated because of grave disability (eg, inability to provide for self at lower level of care) (92) [ ]XXVII. Inpatient monitoring needed; examples include(1)(3)(87)(93)(94)(95)(96 ): [ ]a) Vital signs, neurologic signs, or vascular checks more frequently than every 4 hours [ ]b) Cardiac or respiratory monitoring beyond the scope (eg, over 24 hours) of observation care [ ]c) Pulmonary artery catheter monitoring [ ]d) Suspected compartment syndrome(97) (98) [ ]e) Cerebral bleeding, hydrocephalus, or vasospasm monitoring [ ]f) Increased intracranial pressure or cerebral edema monitoring [ ]g) monitoring [ ]XXVIII. Treatment requiring inpatient care; examples include: [ ]a) IV fluid to replace significant ongoing losses (greater than 3 L/m2 per day)(53) [ ]b) High concentration oxygen (greater than 40%)(33)(99)(100) [ ]c) Frequent respiratory therapy (more frequently than every 4 hours) to maintain airflow rates greater than 60% of baseline(33)(99)(100) [ ]d) Epidural analgesia(87) [ ]e) IV anticoagulation, vasoactive, or antiarrhythmic medication(19 )(23) [ ]f) Acute thrombolytics (generally require 24 hours of observation )(101)(102) [ ]XXIX. Emergency procedures needed; examples include: [ ]a) Emergency inpatient surgery [ ]b) Temporary pacemaker placement(103) [ ]c) Chest tube placement with active evacuation (eg, suction, drainage)(104) [ ]d) Emergent cardioversion(105) [ ]e) Emergent cardiac or vascular procedures (eg, cardiac catheterization, angioplasty) (17)(18) [ ]f) Emergent dialysis access placement and institution(10)(106) [ ]g) Emergent pericardiocentesis(107) [ ]h) Emergent plasmapheresis or leukapheresis(83) [ ]i) Emergent tracheostomy The original [employer] content created by [employer] has been revised. The portions of the content which have been revised are identified through the use of italic text or in bold, and [facility] has neither reviewed nor approved the modified material. All other unmodified content is copyright [employer]. Please see references footnoted in the original [employer] edition 2016 Admission Criteria Met?: Yes MARK MCMILLAN Oct 18, 2016 06:33
[2016-10-18 07:00] VITALS: BP 120/64
[2016-10-18] MEDS: GABAPENTIN 300 MG CAPSULE. PO SCH ×3 (09:00→20:28)
[2016-10-18] MEDS: INSULIN ASPART 300 UNITS/3 ML INSULN.PEN SQ SCH ×4 (09:24→17:13)
[2016-10-18] MEDS: INSULIN DETEMIR 300 UNITS/3 ML INSULN.PEN. SQ SCH ×2 (10:18→21:23)
[2016-10-18 11:00] VITALS: BP 111/69
[2016-10-18 15:00] VITALS: BP 117/70
[2016-10-18] MEDS: TRAMADOL 50 MG TABLET. PO PRN (15:32)
[2016-10-18] MEDS ORDERED: DEXTROSE 50% 25 GM / 50ML DISP.SYRIN. IV PRN (15:45)
--- NOTE | 2016-10-18 15:57 | PDOC ---
PROGRESS NOTES Chief Complaint Chief Complaint Hyperglycemia ASSESSMENT AND PLAN: 1. Hyperglycemia: poorly controlled. not adherent to regimen/ unwilling to manage with frequent admits to hospital. continue long-and short-acting insulin. ISS with add.l insulin to meal doses 2. Chronic pelvic pain/ drug seeking: no IV narcotics. lortab PRN switched to percocet 3. Anxiety: never observed in hospital, but requests benzos. avoid, given lethargy and sleeping. 4. ?urinary retention: neg bladder scan. UA neg for infect signs 5. Diarrhea: new. r/o C.diff, empiric flagyl (frequent hospitalizations) 6. Foot edema: IV infiltrated. ice pack, elevation Vitals Vitals Vital Signs Date Time Temp Pulse Resp B/P Pulse Ox O2 Delivery O2 Flow Rate FiO2 10/18/16 15:32 95 Room Air 10/18/16 15:00 98.2 99 18 117/70 98.2 Physical Exam General: Alert, Oriented X3, Cooperative Heart: Regular rate Lungs: Clear Abdomen: Normal bowel sounds, Soft, No tenderness Extremities: No clubbing, Other (R foot edema, no erythema) Skin: No rashes Labs LABS Laboratory Tests Test 10/17/16 16:14 10/17/16 20:59 10/18/16 07:07 10/18/16 10:59 Glucose (Fingerstick) 212mg/dL (70-99) 404mg/dL (70-99) 334mg/dL (70-99) 359mg/dL (70-99) JEEVAN MOSQUEDA MD Oct 18, 2016 15:57
[2016-10-18] MEDS ORDERED: TRAMADOL 50 MG TABLET. PO PRN (16:30)
[2016-10-18] MEDS: METRONIDAZOLE 500 MG TABLET. PO SCH ×2 (17:10→21:20)
[2016-10-18 19:00] VITALS: BP 107/67
[2016-10-18 23:00] VITALS: BP 119/52
[2016-10-19] MEDS: OXYCODONE/APAP 5/325 TABLET. PO PRN ×3 (02:38→12:45)
[2016-10-19 03:00] VITALS: BP 111/72
[2016-10-19] MEDS: METRONIDAZOLE 500 MG TABLET. PO SCH ×2 (06:08→14:21)
[2016-10-19 07:00] VITALS: BP 102/68
[2016-10-19] MEDS: INSULIN ASPART 300 UNITS/3 ML INSULN.PEN SQ SCH ×4 (07:30→12:53)
[2016-10-19] MEDS: GABAPENTIN 300 MG CAPSULE. PO SCH ×2 (09:00→13:49)
[2016-10-19] MEDS ORDERED: INSULIN ASPART 300 UNITS/3 ML INSULN.PEN SQ ONE ×2 (09:00→10:30)
[2016-10-19] MEDS: INSULIN DETEMIR 300 UNITS/3 ML INSULN.PEN. SQ SCH (09:00)
[2016-10-19] MEDS ORDERED: TRAM-29 PO (09:29)
--- NOTE | 2016-10-19 09:31 | PDOC3 ---
Discharge Summary Visit Information Date of Admission: Oct 16, 2016 Date of Discharge: Oct 19, 2016 Admitting Diagnosis: dehydration Final Diagnosis 1. Hyperglycemia: poorly controlled. 2. Chronic pelvic pain/ drug seeking: no IV narcotics. lortab PRN switched to percocet 3. Anxiety: never observed in hospital, but requests benzos. avoid, given lethargy and sleeping. 4. ?urinary retention: neg bladder scan. UA neg for infect signs 5. Diarrhea: new. r/o C.diff, empiric flagyl (frequent hospitalizations) 6. Foot edema: IV infiltrated. ice pack, elevation Problems Medical Problems: (1) Elevated blood sugar Status: Acute (2) Hyperglycemia Status: Acute (3) Urinary retention Status: Acute Brief Hospital Course Allergies Allergies Coded Allergies Type Severity Reaction Last Updated Verified Penicillins Allergy Intermediate 01/29/16 Yes codeine Allergy Intermediate Tolerates Dilaudid, MORPHINE 01/29/16 Yes doxycycline Allergy Intermediate 01/29/16 Yes fentanyl Allergy Intermediate 01/29/16 Yes hydrocodone Adverse Reaction Mild itching 10/17/16 Yes Vital Signs Vital Signs Date Time Temp Pulse Resp B/P Pulse Ox O2 Delivery O2 Flow Rate FiO2 10/19/16 07:00 96.9 99 18 102/68 94 Room Air 96.9 Lab Results Laboratory Tests Test 10/17/16 11:00 10/17/16 16:14 10/17/16 20:59 10/18/16 07:07 Glucose (Fingerstick) 312mg/dL (70-99) 212mg/dL (70-99) 404mg/dL (70-99) 334mg/dL (70-99) Test 10/18/16 10:59 10/18/16 16:03 10/18/16 20:33 10/19/16 08:19 Glucose (Fingerstick) 359mg/dL (70-99) 241mg/dL (70-99) 281mg/dL (70-99) 438mg/dL (70-99) Laboratory Tests Test 10/18/16 10:59 10/18/16 16:03 10/18/16 20:33 10/19/16 08:19 Glucose (Fingerstick) 359mg/dL (70-99) 241mg/dL (70-99) 281mg/dL (70-99) 438mg/dL (70-99) Brief Hospital Course Ms. Smith is a 25 old female, amdit with hyperglycemia, diarrhea treated c.diff. DC with refill of tramadol prior pysician reports she is poorly adherent to regimen/ unwilling to manage with frequent admits to hospital. continue long-and short-acting insulin. Discharge Information Condition at Discharge: Improved Follow Up: Weeks Disposition/Orders: D/C to Home Scheduled Gabapentin (Gabapentin) 600 MG PO TID (Reported) Insulin Aspart (Novolog Flexpen) 35 UNIT SQ TIDAC (Reported) Insulin Glargine,Hum.rec.anlog (Lantus Solostar) 75 UNIT SQ BID Scheduled PRN Diazepam (Valium) 5 MG PO PRN Q8HRS PRN PRN ANXIETY (Reported) Tramadol Hcl (Ultram) 50 MG PO Q6H PRN PRN PAIN Discontinued Medications Glimepiride (Amaryl) 1 TAB PO DAILY (Reported) Patient Instructions Patient Instructions est. primary care MILTON WARE MD Oct 19, 2016 09:31
[2016-10-19] MEDS ORDERED: METR500T PO (09:32)
[2016-10-19 11:00] VITALS: BP 115/69
== END 2016-10-19 14:45 | disposition home or self-care (01) | DRG 638 ==
LOC: ER 23:29 → OBSVTOIN 10-16 03:00 → 4 NORTH 10-16 03:00
PROVIDERS: ADMIT Internal Medicine; ATTEND Internal Medicine
DX: E10.65 Type 1 diabetes mellitus with hyperglycemia (principal); E87.1 Hypo-osmolality and hyponatremia; E10.40 Type 1 diabetes mellitus with diabetic neuropathy, unspecified; E86.0 Dehydration; F41.9 Anxiety disorder, unspecified; G89.29 Other chronic pain; R32 Unspecified urinary incontinence; R33.9 Retention of urine, unspecified; Z88.6 Allergy status to analgesic agent; Z88.1 Allergy status to other antibiotic agents; Z88.0 Allergy status to penicillin; Z88.8 Allergy status to other drugs, medicaments and biological substances; Z76.5 Malingerer [conscious simulation]; Z79.4 Long term (current) use of insulin; Z90.49 Acquired absence of other specified parts of digestive tract; Z79.82 Long term (current) use of aspirin; Z90.721 Acquired absence of ovaries, unilateral; Z82.49 Family history of ischemic heart disease and other diseases of the circulatory system; Z91.19 Patient's noncompliance with other medical treatment and regimen; Z79.899 Other long term (current) drug therapy
CPT/HCPCS: 36415; 71010; 80048; 80076; 81001; 81025; 82947; 83690; 83930; 84484; 85027; 87324; 93005; 96374; 96375; J1815; J2270; J2405; J7030; 99285-25

== ENCOUNTER 2016-10-30 21:09 | Inpatient (IN) | payer MEDICAID ==
[~2016-10-30] VITALS: Ht 170.2 cm; Wt 103.6 kg
[~2016-10-30 21:09] MED LIST changes: +INSU100I17 SQ; +METR500T PO
[2016-10-30] MEDS: MORPHINE SULFATE 4 MG/ML DISP.SYRIN. IV/SQ PRN (22:21)
[2016-10-30] MEDS ORDERED: IV NORMAL SALINE 1000ML BAG 1,000 ML IV SCH (22:30)
[2016-10-30] MEDS ORDERED: ONDANSETRON PF 4 MG/2 ML VIAL. IV ONE (22:30)
[2016-10-30 22:33] LABS: BASO % 1 % (0-3); EOS % 2 % (0-3); HEMATOCRIT 36.7 % (36.0-47.0); HEMOGLOBIN 11.6 g/dL (12.0-15.5); LYMPH # 1.9 x10^3/uL (1.0-4.8); LYMPH % 32 % (24-48); MEAN CORPUSCULAR HEMOGLOBIN 25 pg (25-35); MEAN CORPUSCULAR HGB CONC 32 g/dL (31-37); MEAN CORPUSCULAR VOLUME 78 fL (79-100); MONO % 6 % (0-9); NEUT % 60 % (31-73); PLATELET COUNT 265 x10^3/uL (140-400); RED BLOOD COUNT 4.69 x10^6/uL (3.50-5.40); RED CELL DISTRIBUTION WIDTH 16.6 % (11.5-14.5); WHITE BLOOD COUNT 5.9 x10^3/uL (4.0-11.0)
[2016-10-30 22:50] LABS: ALBUMIN 3.7 g/dL (3.4-5.0); ALBUMIN/GLOBULIN RATIO 0.8 (1.0-1.7); CALCIUM 9.2 mg/dL (8.5-10.1); GFR 66.5; TOTAL BILIRUBIN 0.5 mg/dL (0.2-1.0); TOTAL PROTEIN 8.3 g/dL (6.4-8.2)
--- NOTE | 2016-10-30 22:57 | PHYS DOC ---
Past Medical History Past Medical History: Diabetes-Type I, MRSA, Other Additional Past Medical Histor: neuropathy, ovarian cyst,CHRONIC ABD PAIN, VENTRAL HERNIA, hyperglycemia Past Surgical History: Appendectomy, Cholecystectomy, Oophorectomy, Other Additional Past Surgical Histo: R fallopian tube removed, L ovarian cyst removed,HERNIA REPAIR, I&D L ARM Alcohol Use: None Drug Use: None Adult General Chief Complaint Chief Complaint: MULTIPLE COMPLAINTS HPI HPI Patient is a 25 year old female who presents with complaint of high blood sugar , nausea, vomiting, and left-sided pain. Patient states that she has been having trouble with nausea and vomiting over the past few days. Patient has been seen on multiple occasions for treatment of uncontrolled diabetes mellitus. Patient was recently admitted the hospital on October 16 and discharged on October 19. Patient states that she has had decreased urine output since discharge. Patient has not had any fevers but has had worsening nausea and vomiting. Patient states she is unable to keep fluids or solid food down at this time. Patient states that she has been compliant with her insulin regimen. Patient rates her pain currently is 10 out of 10. Review of Systems Review of Systems Constitutional: Lightheadedness, weakness, denies fever or chills [] Eyes: Denies change in visual acuity, redness, or eye pain [] HENT: Denies nasal congestion or sore throat [] Respiratory: Shortness of breath [] Cardiovascular: Denies chest pain or edema [] GI: Abdominal pain, nausea, vomiting, diarrhea [] : Oliguria [] Musculoskeletal: Back pain [] Integument: Denies rash or skin lesions [] Neurologic: Denies headache, focal weakness or sensory changes [] Endocrine: Polydipsia Current Medications Current Medications Current Medications Medications (Trade) Dose Ordered Sig/[facility] Start Time Stop Time Status Last Admin Dose Admin Morphine Sulfate 4 mg PRN Q15MIN PRN 10/30/16 22:15 10/31/16 22:14 10/30/16 22:21 4 MG Ondansetron HCl (Zofran) 4 mg 1X ONCE 10/30/16 22:30 10/30/16 22:31 DC 10/30/16 22:19 4 MG Sodium Chloride (Iv Sodium Chloride 0.9% 1000ml Bag) 1,000 ml @ 1,000 mls/hr Q1H 10/30/16 22:30 10/30/16 23:29 DC 10/30/16 22:19 1,000 MLS/HR Allergies Allergies Allergies Coded Allergies Type Severity Reaction Last Updated Verified Penicillins Allergy Intermediate 01/29/16 Yes codeine Allergy Intermediate Tolerates Dilaudid, MORPHINE 01/29/16 Yes doxycycline Allergy Intermediate 01/29/16 Yes fentanyl Allergy Intermediate 01/29/16 Yes hydrocodone Adverse Reaction Mild itching 10/17/16 Yes Physical Exam Physical Exam Constitutional: Alert, obese, afebrile, appears ill. [] HENT: Normocephalic, atraumatic, bilateral external ears normal, oropharynx dry , no oral exudates, nose normal. [] Eyes: PERRLA, EOMI, conjunctiva normal, no discharge. [] Neck: Normal range of motion, no tenderness, supple, no stridor. [] Cardiovascular: Tachycardia, regular rhythm, no murmur [] Lungs & Thorax: None restricted air movement bilaterally, no wheezes, no rales [ ] Abdomen: Bowel sounds normal, soft, abdominal tenderness palpation in all 4 quadrants, no masses, no pulsatile masses. [] Skin: Warm, dry, no erythema, no rash. [] Back: No tenderness, no CVA tenderness. [] Extremities: No tenderness, no cyanosis, no clubbing, ROM intact, no edema. [] Neurologic: Alert and oriented X 3, normal motor function, normal sensory function, no focal deficits noted. [] Current Patient Data Vital Signs Vital Signs Date Time Temp Pulse Resp B/P Pulse Ox O2 Delivery O2 Flow Rate FiO2 10/30/16 21:25 98.4 91 18 134/101 98 Room Air 98.4 Lab Values Laboratory Tests Test 10/30/16 22:00 10/30/16 22:22 10/30/16 22:45 POC Urine HCG, Qualitative Hcg negative (Negative) White Blood Count 5.9x10^3/uL (4.0-11.0) Red Blood Count 4.69x10^6/uL (3.50-5.40) Hemoglobin 11.6g/dL (12.0-15.5) L Hematocrit 36.7% (36.0-47.0) Mean Corpuscular Volume 78fL (79-100) L Mean Corpuscular Hemoglobin 25pg (25-35) Mean Corpuscular Hemoglobin Concent 32g/dL (31-37) Red Cell Distribution Width 16.6% (11.5-14.5) H Platelet Count 265x10^3/uL (140-400) Neutrophils (%) (Auto) 60% (31-73) Lymphocytes (%) (Auto) 32% (24-48) Monocytes (%) (Auto) 6% (0-9) Eosinophils (%) (Auto) 2% (0-3) Basophils (%) (Auto) 1% (0-3) Neutrophils # (Auto) 3.5x10^3uL (1.8-7.7) Lymphocytes # (Auto) 1.9x10^3/uL (1.0-4.8) Monocytes # (Auto) 0.4x10^3/uL (0.0-1.1) Eosinophils # (Auto) 0.1x10^3/uL (0.0-0.7) Basophils # (Auto) 0.0x10^3/uL (0.0-0.2) Maternal Serum HCG Beta Subunit < 1mIU/mL (0-6) Sodium Level 128mmol/L (136-145) L Potassium Level 4.0mmol/L (3.5-5.1) Chloride Level 91mmol/L (98-107) L Carbon Dioxide Level 21mmol/L (21-32) Anion Gap 16 (6-14) H Blood Urea Nitrogen 7mg/dL (7-20) Creatinine 1.0mg/dL (0.6-1.0) Estimated GFR (Cockcroft-Gault) 66.5 BUN/Creatinine Ratio 7 (6-20) Glucose Level 650mg/dL (70-99) *H Calcium Level 9.2mg/dL (8.5-10.1) Total Bilirubin 0.5mg/dL (0.2-1.0) Aspartate Amino Transferase (AST) 27U/L (15-37) Alanine Aminotransferase (ALT) 40U/L (14-59) Alkaline Phosphatase 183U/L (46-116) H Total Protein 8.3g/dL (6.4-8.2) H Albumin 3.7g/dL (3.4-5.0) Albumin/Globulin Ratio 0.8 (1.0-1.7) L Urine Collection Type Unknown Urine Color Yellow Urine Clarity Clear Urine pH 6.5 Urine Specific Loyal 1.025 Urine Protein Negativemg/dL (NEG-TRACE) Urine Glucose (UA) >=1000mg/dL (NEG) Urine Ketones (Stick) Negativemg/dL (NEG) Urine Blood Large (NEG) Urine Nitrite Negative (NEG) Urine Bilirubin Negative (NEG) Urine Urobilinogen Dipstick 0.2mg/dL (0.2 mg/dL) Urine Leukocyte Esterase Negative (NEG) Urine RBC >40/HPF (0-2) Urine WBC 5-10/HPF (0-4) Urine Squamous Epithelial Cells Few/LPF Urine Bacteria 0/HPF (0-FEW) Laboratory Tests 10/30/16 22:22 Laboratory Tests 10/30/16 22:22 EKG EKG Interpreted by me: Heart rate 122, sinus tachycardia, normal intervals, normal axis, no acute ST/T-wave abnormalities present [] Radiology/Procedures Radiology/Procedures One view AP chest x-ray interpreted by me: No infiltrate, no effusion, normal cardiac silhouette [] Course & Med Decision Making Course & Med Decision Making Pertinent Labs and Imaging studies reviewed. (See chart for details) Patient's serum glucose in to be 650. Patient was started on IV fluids in the emergency department. Due to critically high blood sugar, the patient is currently in a hyperosmolar state. Patient does not display any altered mental status at this time. I spoke with Dr. Josey calvo who asked that the patient be placed on continuous insulin infusion which was started in the emergency department. Patient will be continued on IV fluids and IV insulin for control of blood sugar and volume repletion. Critical care time excluding procedures: 50 minutes Dragon Disclaimer Dragon Disclaimer This electronic medical record was generated, in whole or in part, using a voice recognition dictation system. Departure Departure Impression: Primary Impression: Hyperglycemia Additional Impressions: Hyperosmolar non-ketotic state in patient with type 2 diabetes mellitus Dehydration Disposition: 09 ADMITTED INPATIENT Admitting Physician: Cas Granados Condition: GUARDED Referrals: NO PCP (PCP) Problem Qualifiers VENKATESH LEROY MD Oct 30, 2016 22:57
[2016-10-30 23:03] LABS: BILIRUBIN,URINE NEGATIVE (NEG); GLUCOSE,URINE >=1000 mg/dL (NEG); NITRITE,URINE NEGATIVE (NEG); PH,URINE 6.5; PROTEIN,URINE NEGATIVE (NEG-TRACE); UROBILINOGEN,URINE 0.2 mg/dL (0.2 mg/dL)
[2016-10-30 23:10] LABS: BACTERIA,URINE 0 /HPF (0-FEW); RBC,URINE >40 /HPF (0-2); SQUAMOUS EPITHELIAL CELL,UR FEW /LPF
[2016-10-30] MEDS ORDERED: IV NORMAL SALINE 1000ML BAG 1,000 ML IV ONE (23:45)
[2016-10-30] MEDS ORDERED: INSULIN REGULAR VIAL 150 UNIT in 0.9 % SODIUM CHLORIDE 150ML 150 ML IV PRN (23:45)
[2016-10-30] MEDS ORDERED: DEXTROSE 50% 25 GM / 50ML DISP.SYRIN. IV PRN (23:45)
[2016-10-31] VITALS (18 sets, daily range): BP systolic 109–141; BP diastolic 58–94
[2016-10-31] MEDS ORDERED: INSULIN,REGULAR 150 UNIT DRIP 150 ML IV ONE (00:02)
[2016-10-31] MEDS: MORPHINE SULFATE 4 MG/ML DISP.SYRIN. IV/SQ PRN (00:12)
[2016-10-31] MEDS ORDERED: ACETAMINOPHEN 325 MG TABLET. PO PRN (00:15)
--- NOTE | 2016-10-31 00:28 | ACF ---
Admission Forms Criteria DIABETES Clinical Indications for Admission to Inpatient Care (Place 'X' for any and all applicable criteria): Admission is indicated by presence of ALL (if I & II) or ANY ONE (if III or IV) of the following (1)(2)(3)(4): [X]I. Diabetes is uncontrolled as indicated by ANY ONE of the following: [ ]a) Diabetic ketoacidosis as indicated by ALL of the following (8): [ ]i) Hyperglycemia (eg, plasma glucose greater than 200 mg/ dL (11.1 mmol/L)) [ ]ii) Acidosis (eg, arterial pH less than 7.30, serum bicarbonate level less than 15 mEq/L (mmol/L)) [ ]iii) Moderate ketonuria or ketonemia [ ]b) Hyperglycemic hyperosmolar state as indicated by ALL of the following(9)(10): [ ]i) Neurologic dysfunction (eg, stupor, coma, hemiparesis , seizure)(13) [ ]ii) Plasma glucose greater than 600 mg/dL (33.3 mmol/L) [ ]iii) Serum osmolality greater than 320 mOsm/kg (mmol/kg) [X]c) Severe signs or symptoms secondary to hyperglycemia indicated by ANY ONE of the following: [ ]i) Altered mental status(10) [X]ii) Significant hypovolemia or dehydration [ ]iii) Intractable nausea or vomiting [ ]iv) Unexplained fever or severe infection [ ]v) Severe electrolyte abnormality (eg, hypokalemia, hyperkalemia, hypernatremia) [X]II. Management at other levels of care (Also use Diabetes: Observation Care as appropriate) is not feasible because of ANY ONE of the following: [X]a) Condition was not adequately corrected with treatment at other levels of care. [ ]b) Treatment at other levels of care is not appropriate because of condition severity (eg, hyperosmolar coma). [ ]III. Contraindications and/or Inappropriate clinical situations for Observational Care in patients with Diabetes, when ANY ONE of the following is required: [ ]a) Patient require specific diagnostic workup or therapeutic intervention 22 [ ]b) Patient with abnormal vital signs or altered mental status 23 [ ]IV. General contraindications and/or Inappropriate clinical situations for Observational Care in patients with Diabetes, when ANY ONE of the following is required: [ ]a) Prediction of prolongation of LOS based on ANY ONE of the following may be considered as a contraindication for observational care 2, 3, 4, 5, 6, 7, 8, 9, 10, 11 [ ]i) Age > 65 yrs. [ ]ii) Patient arriving by ambulance [ ]iii) Patient with high acuity [ ]iv) Patient requiring vital sign monitoring [ ]v) Patient on IV medication [ ]b) Systolic blood pressures 180mmHg 3,12 [ ]c) Patient with altered mental status including delirium and other alteration of consciousness, (3) [ ]d) Patient whose discharge disposition will be to a fdc home or rehabilitation home should not be managed in Emergency Department Observation Unit. CMS rule requires 3 days hospital stay before such placement.3,13 [ ]e) Patient with failure to thrive due to broad array of etiologies 3,16,17 [ ]f) Inability to ambulate 3,14 Extended stay beyond goal length of stay may be needed for(3)(20): [ ]a) Treatment of precipitating causes [ ]b) Development of hypoglycemia [ ]c) Complications of treatment [ ]d) Complications of decompensated diabetes (eg, acute gastric dilatation, persistent metabolic or neurologic derangement) [ ]e) Active Comorbidities [ ]f) Older patients( 65 years or older) The original [employer] content created by [employer] has been revised. The portions of the content which have been revised are identified through the use of italic text or in bold,and [facility] has neither reviewed nor approved the modified material. All other unmodified content is copyright [employer]. Please see references footnoted in the original [facility] edition 2015 Admission Criteria Met?: Yes EPI ANTONIO Oct 31, 2016 00:28
[2016-10-31] MEDS: IV NORMAL SALINE 1000ML BAG 1,000 ML IV SCH ×2 (01:16→06:45)
[2016-10-31] MEDS: ONDANSETRON PF 4 MG/2 ML VIAL. IV PRN ×2 (01:16→09:27)
[2016-10-31] MEDS: MORPHINE SULFATE 4 MG/ML DISP.SYRIN. IV PRN ×6 (04:01→17:42)
--- NOTE | 2016-10-31 07:44 | RAD ---
EXAM: Chest, single view. HISTORY: Shortness of breath. COMPARISON: 10/16/2016. FINDINGS: A frontal view of the chest is obtained. There is no infiltrate, effusion or pneumothorax. The heart is normal in size. IMPRESSION: No acute pulmonary finding.
[2016-10-31 08:05] LABS: BASO % 1 % (0-3); EOS % 4 % (0-3); HEMATOCRIT 31.3 % (36.0-47.0); HEMOGLOBIN 10.1 g/dL (12.0-15.5); LYMPH # 1.9 x10^3/uL (1.0-4.8); LYMPH % 36 % (24-48); MEAN CORPUSCULAR HEMOGLOBIN 25 pg (25-35); MEAN CORPUSCULAR HGB CONC 32 g/dL (31-37); MEAN CORPUSCULAR VOLUME 77 fL (79-100); MONO % 8 % (0-9); NEUT % 52 % (31-73); PLATELET COUNT 243 x10^3/uL (140-400); RED BLOOD COUNT 4.04 x10^6/uL (3.50-5.40); RED CELL DISTRIBUTION WIDTH 15.8 % (11.5-14.5); WHITE BLOOD COUNT 5.4 x10^3/uL (4.0-11.0)
[2016-10-31] MEDS: IV DEXTROSE 5% - 0.9 % NACL 1,000 ML IV SCH ×3 (08:15→16:15)
[2016-10-31 08:31] LABS: CALCIUM 8.5 mg/dL (8.5-10.1); CREATININE 0.5 mg/dL (0.6-1.0); POTASSIUM 3.4 mmol/L (3.5-5.1)
[2016-10-31] MEDS ORDERED: TRAZ100T12 PO (09:01)
[2016-10-31] MEDS ORDERED: DIAZEPAM 5 MG TABLET PO PRN (09:15)
--- NOTE | 2016-10-31 09:16 | EKG ---
[facility] [address] [place] [address] Test Date: 2016-10-30 Test Time: 22:40:28 Pat Name: SAMANTHA DOWD Department: Room: [facility] Gender: F Pill[employer]: : 1990 Requested By: VENKATESH LEROY Order Number: [id number] Reading MD: Elaine Agrawal Measurements Intervals [place] Rate: 122 P: -166 UT: 118 QRS: 129 QRSD: 74 T: 19 QT: 356 QTc: 509 Interpretive Statements SINUS TACHYCARDIA OTHERWISE NORMAL ECG Electronically Signed On 11-01-2016 19:04:23 CDT by Elaine Agrawal
[2016-10-31] MEDS ORDERED: INSULIN DETEMIR 300 UNITS/3 ML INSULN.PEN. SQ ONE ×2 (10:00→10:30)
[2016-10-31] MEDS ORDERED: INSULIN DETEMIR 300 UNITS/3 ML INSULN.PEN. SQ SCH (10:00)
[2016-10-31] MEDS: INSULIN ASPART 300 UNITS/3 ML INSULN.PEN SQ SCH ×2 (11:30→14:28)
[2016-10-31] MEDS: TRAMADOL 50 MG TABLET. PO PRN ×2 (11:57→19:52)
--- NOTE | 2016-10-31 14:00 | RAD ---
EXAM: Abdomen and pelvis CT without intravenous contrast. HISTORY: Line pain. TECHNIQUE: Computed tomographic images of the abdomen and pelvis were obtained without contrast. Multiplanar reformatting was performed. COMPARISON: 01/10/2016. FINDINGS: Evaluation of the lower thorax demonstrates groundglass opacities within the right greater than left lower lobe likely due to atelectasis. There is right middle lobe and lingular atelectasis or scarring. There is no pleural effusion. There is trace pericardial fluid. There is hepatomegaly and hepatic steatosis. The gallbladder is surgically absent. The pancreas is unremarkable. The spleen is enlarged, measuring 15.3 cm pérez caudally. The adrenal glands are unremarkable. There is no evidence of nephrolithiasis or obstructive uropathy. There is a rounded fat density within the upper pole of the left kidney measuring 6 mm, possibly due to focal cortical scarring or a tiny angiomyolipoma. The appendix is surgically absent. No abnormally thickened or dilated loop of bowel is seen. The bladder is distended. The uterus is unremarkable. There is a 2.2 cm left ovarian cyst. There are findings consistent with ventral abdominal wall hernia repair. There are degenerative changes within the sacroiliac joints. There is a transitional lumbosacral segment. IMPRESSION: 1. Hepatomegaly and hepatic steatosis. 2. Splenomegaly. 3. No evidence of nephrolithiasis or obstructive uropathy. 4. 6 mm fat density lesion along the upper pole of the left kidney, possibly due to focal cortical scarring or a tiny angiomyolipoma, stable in appearance. 5. 2.2 cm left ovarian cyst. 6. Distended urinary bladder. PQRS Compliance Statement: One or more of the following individualized dose reduction techniques were utilized for this examination: 1. Automated exposure control 2. Adjustment of the mA and/or kV according to patient size 3. Use of iterative reconstruction technique
[2016-10-31] MEDS: GABAPENTIN 300 MG CAPSULE. PO SCH ×2 (14:29→19:51)
[2016-10-31] MEDS: METRONIDAZOLE 500 MG TABLET. PO SCH ×2 (14:29→19:52)
[2016-10-31] MEDS ORDERED: LORAZEPAM 2 MG/ML VIAL. IV ONE (20:30)
[2016-10-31] MEDS ORDERED: traZODone 100 MG TABLET. PO PRN (21:00)
[2016-10-31] MEDS ORDERED: traZODone 100 MG TABLET. PO SCH (21:00)
[2016-10-31] MEDS: OXYCODONE IR 5 MG TABLET. PO PRN (22:22)
[2016-11-01] MEDS: METRONIDAZOLE 500 MG TABLET. PO SCH ×2 (03:03→14:13)
[2016-11-01] MEDS: TRAMADOL 50 MG TABLET. PO PRN ×3 (03:05→22:24)
[2016-11-01 04:28] VITALS: BP 137/87
[2016-11-01] MEDS: OXYCODONE IR 5 MG TABLET. PO PRN ×3 (06:04→18:41)
[2016-11-01 07:40] VITALS: BP 137/80
[2016-11-01] MEDS: GABAPENTIN 300 MG CAPSULE. PO SCH ×3 (08:17→21:02)
[2016-11-01] MEDS: INSULIN ASPART 300 UNITS/3 ML INSULN.PEN SQ SCH ×3 (08:23→16:30)
--- NOTE | 2016-11-01 10:31 | PDOC ---
PROGRESS NOTES Chief Complaint Chief Complaint Hyperglycemia ASSESSMENT AND PLAN: 1. Hyperglycemia: initially admitted to ICU on insulin gtt, now on SQ. per RN , ate all night (clearly not adhering to ADA diet). pt prob noncompliant with insulin regimen at home with frequent admits for hyperglycemia. ideally, would get ongoing diabetic teaching and monitoring on an O/P basis, but lack of insurance prevents. pt not motivated. change insulin back to prevous bid dosing with poor control this AM 2. Abd pain: chronic. mult abn on CT, none critical or a possible etiology of her pain. NO IV narcotics for chronic pain! taking oxys w/o complaints 3. L thumb pain: infiltrated IV. use ice. 4. Vitals Vitals Vital Signs Date Time Temp Pulse Resp B/P Pulse Ox O2 Delivery O2 Flow Rate FiO2 11/01/16 07:40 98.2 113 16 137/80 95 Room Air 98.2 Physical Exam General: Alert, Oriented X3, Cooperative Heart: Regular rate Lungs: Clear Abdomen: Normal bowel sounds, Soft, No tenderness Extremities: Other (L thumb distal joint and tip with bruise. inflitrate to thumb base with swelling) Skin: No rashes Labs LABS Laboratory Tests Test 10/31/16 10:45 10/31/16 11:48 10/31/16 14:23 10/31/16 16:53 Glucose (Fingerstick) 198mg/dL (70-99) 163mg/dL (70-99) 252mg/dL (70-99) 108mg/dL (70-99) Test 10/31/16 20:14 11/01/16 08:11 Glucose (Fingerstick) 149mg/dL (70-99) 398mg/dL (70-99) Review of Systems Review of Systems c/o pain in L thumb, exquisitely tender JEEVAN MOSQUEDA MD Nov 01, 2016 10:31
[2016-11-01 10:57] VITALS: BP 134/79
--- NOTE | 2016-11-01 14:53 | HP ---
ADMIT DATE: 10/30/2016 CHIEF COMPLAINT: Hyperglycemia and left-sided abdominal pain. HISTORY OF PRESENT ILLNESS: The patient is a pleasant 25-year-old female well-known to our service. She has brittle diabetes. She also has some other comorbidities, please see below. Basically, she presented with DKA last night. She was placed in the ICU on insulin drip and fluids, this morning, she is still in the ICU. PAST MEDICAL HISTORY: Noncompliance, diabetes, neuropathy, ovarian cyst, chronic pain, probable narcotic dependence, cholecystectomy, partial hysterectomy, appendectomy, and hernia repair. ALLERGIES: PENICILLIN, CODEINE, DOXYCYCLINE, FENTANYL AND HYDROCODONE. FAMILY HISTORY: Diabetes. SOCIAL HISTORY: She does not drink, smoke or take drugs. MEDICATIONS: Reviewed, please refer to the MRAD. REVIEW OF SYSTEMS: GENERAL: No history of weight change, weakness or fevers. SKIN: No bruising, hair changes or rashes. EYES: No blurred, double or loss of vision. NOSE AND THROAT: No history of nosebleeds, hoarseness or sore throat. HEART: No history of palpitations, chest pain or shortness of breath on exertion. LUNGS: Denies cough, hemoptysis, wheezing or shortness of breath. GASTROINTESTINAL: The patient complaints of abdominal pain. GENITOURINARY: No history of frequency, urgency, hesitancy or nocturia. NEUROLOGIC: Denies history of numbness, tingling, tremor or weakness. PSYCHIATRIC: No history of panic, anxiety or depression. ENDOCRINE: No history of heat or cold intolerance, polyuria or polydipsia. EXTREMITIES: Denies muscle weakness, joint pain, pain on walking or stiffness. PHYSICAL EXAMINATION: VITAL SIGNS: Temperature afebrile, pulse 62, respirations 21, and blood pressure 131/76. GENERAL: She is alert, cooperative, weak. HEART: Distant S1, S2. LUNGS: Clear. ABDOMEN: Soft. Decreased bowel sounds, tender. EXTREMITIES: No edema. SKIN: She has a lot of tattoos. PSYCHIATRIC: She is depressed. VASCULAR: Good capillary refill. ENDOCRINE: No thyromegaly. LYMPHATICS: No cervical nodes. HEMATOPOIETIC: No bruising. LABORATORY DATA: White count 6, hemoglobin 12, and platelets 265. Electrolytes this morning, showing sodium of 139, potassium 3.4, chloride 105, bicarbonate 24, BUN 5, and creatinine 0.5. Glucose 148. Her gap is now clear to 10, it was 16 upon arrival. ASSESSMENT AND PLAN: Resolving diabetic ketoacidosis. The patient has been admitted. We are doing the Intensive Care Unit monitoring. We were stopping the drip and try to get her back on her home medications, continue diabetic ketoacidosis protocol for another 12 hours. PT, OT. EDGARD GUTIERREZ DO DR: ROSY/ric JOB#: [id number] / [id number]
[2016-11-01 15:00] VITALS: BP 128/72
[2016-11-01] MEDS ORDERED: INSULIN ASPART 300 UNITS/3 ML INSULN.PEN SQ ONE (17:15)
[2016-11-01] MEDS ORDERED: ENOXAPARIN 40 MG/0.4 ML SYRINGE. SQ SCH (18:00)
[2016-11-01 19:25] VITALS: BP 120/70
[2016-11-01] MEDS ORDERED: INSULIN DETEMIR 300 UNITS/3 ML INSULN.PEN. SQ SCH (21:00)
[2016-11-01] MEDS: INSULIN DETEMIR 300 UNITS/3 ML INSULN.PEN. SQ SCH (21:06)
[2016-11-01] MEDS: ENOXAPARIN 40 MG/0.4 ML SYRINGE. SQ SCH (21:06)
[2016-11-01] MEDS: DIAZEPAM 5 MG TABLET PO PRN (21:08)
[2016-11-01 22:45] VITALS: BP 136/82
[2016-11-02] MEDS: OXYCODONE IR 5 MG TABLET. PO PRN ×4 (01:10→21:11)
[2016-11-02 03:10] VITALS: BP 129/68
[2016-11-02 07:00] VITALS: BP 104/72
[2016-11-02] MEDS: GABAPENTIN 300 MG CAPSULE. PO SCH ×3 (08:38→21:11)
[2016-11-02] MEDS: INSULIN ASPART 300 UNITS/3 ML INSULN.PEN SQ SCH ×6 (08:45→21:19)
[2016-11-02] MEDS: INSULIN DETEMIR 300 UNITS/3 ML INSULN.PEN. SQ SCH ×2 (08:46→21:20)
[2016-11-02] MEDS ORDERED: DEXTROSE 50% 25 GM / 50ML DISP.SYRIN. IV PRN (10:30)
[2016-11-02 11:00] VITALS: BP 109/68
[2016-11-02] MEDS: TRAMADOL 50 MG TABLET. PO PRN ×2 (13:00→21:12)
--- NOTE | 2016-11-02 13:13 | PDOC ---
PROGRESS NOTES Chief Complaint Chief Complaint Hyperglycemia ASSESSMENT AND PLAN: 1. Hyperglycemia: initially admitted to ICU on insulin gtt, now on SQ. per RN , ate all night (clearly not adhering to ADA diet). pt prob noncompliant with insulin regimen at home with frequent admits for hyperglycemia. ideally, would get ongoing diabetic teaching and monitoring on an O/P basis, but lack of insurance prevents. pt not motivated. change insulin back to prevous bid dosing with poor control this AM 2. Abd pain: chronic. mult abn on CT, none critical or a possible etiology of her pain. NO IV narcotics for chronic pain! taking oxys w/o complaints 3. L thumb pain: infiltrated IV. use ice. plan: increase insulin to levemir 85u bid, aspart 45u tid chech hba1c pt said she has medicaid, has insulin at home and compliant with meds, not sure that is true, since she comes here every month History of Present Illness History of Present Illness frustrated with hyperglycemia, denies taking snacks said no levemir was given last night ,which is not true since med was given documented in computer. Vitals Vitals Vital Signs Date Time Temp Pulse Resp B/P Pulse Ox O2 Delivery O2 Flow Rate FiO2 11/02/16 13:00 20 99 Room Air 11/02/16 11:00 98.0 105 109/68 98.0 Physical Exam General: Alert, Oriented X3, Cooperative Heart: Regular rate Lungs: Clear Abdomen: Normal bowel sounds, Soft, No tenderness Extremities: Other (L thumb distal joint and tip with bruise. inflitrate to thumb base with swelling) Skin: No rashes Labs LABS Laboratory Tests Test 11/01/16 16:46 11/01/16 20:47 11/02/16 07:10 11/02/16 11:39 Glucose (Fingerstick) 353mg/dL (70-99) 311mg/dL (70-99) 522mg/dL (70-99) 335mg/dL (70-99) Review of Systems Review of Systems no fever, chills, sob or chest pain Assessment and Plan Assessmemt and Plan Problems Medical Problems: (1) Dehydration Status: Acute (2) Hyperglycemia Status: Acute (3) Hyperosmolar non-ketotic state in patient with type 2 diabetes mellitus Status: Acute Problems: Comment Review of Relevant I have reviewed the following items lizbeth (where applicable) has been applied. Labs Laboratory Tests Test 10/31/16 14:23 10/31/16 16:53 10/31/16 20:14 11/01/16 08:11 Glucose (Fingerstick) 252mg/dL (70-99) 108mg/dL (70-99) 149mg/dL (70-99) 398mg/dL (70-99) Test 11/01/16 11:11 11/01/16 16:46 11/01/16 20:47 11/02/16 07:10 Glucose (Fingerstick) 313mg/dL (70-99) 353mg/dL (70-99) 311mg/dL (70-99) 522mg/dL (70-99) Test 11/02/16 11:39 Glucose (Fingerstick) 335mg/dL (70-99) Laboratory Tests Test 11/01/16 16:46 11/01/16 20:47 11/02/16 07:10 11/02/16 11:39 Glucose (Fingerstick) 353mg/dL (70-99) 311mg/dL (70-99) 522mg/dL (70-99) 335mg/dL (70-99) Microbiology 10/30/16 Urine Culture - Preliminary, Resulted 10/30/16 Urine Culture Result 1 (ROLY) - Preliminary, Resulted Medications Current Medications Sodium Chloride (Iv Sodium Chloride 0.9% 1000ml Bag) 1,000 ml @ 1,000 mls/hr Q1H IV Last administered on 10/30/16 22:19; Start 10/30/16 at 22:30; Stop at 23:29; Status DC Ondansetron HCl (Zofran) 4 mg 1X ONCE IV Last administered on 10/30/16 22:19 ; Start 10/30/16 at 22:30; Stop 10/30/16 at 22:31; Status DC Morphine Sulfate 4 mg 4 mg PRN Q15MIN PRN IV/SQ PAIN GREATER THAN 3/10 Last administered on 10/31/16 00:12; Start 10/30/16 at 22:15; Stop 10/31/16 at 15:47; Status DC Sodium Chloride 1,000 ml @ 1,000 mls/hr 1X ONCE IV Last administered on 23:45; Start 10/30/16 at 23:45; Stop 10/31/16 at 00:44; Status DC Insulin Human Regular/Sodium Chloride (Novolin R Vial/ Iv Normal Saline 150ml) 151.5 ml @ 0 mls/hr CONT PRN IV SEE I/O RECORD Last administered on 10/31/16 00:13; Start 10/30/16 at 23:45; Stop 11/01/16 at 16:12; Status DC Dextrose 12.5 gm 12.5 gm PRN Q15MIN PRN IV LOW BLOOD SUGAR; Start 10/30/16 at 23:45; Stop 11/02/16 at 10:41; Status DC Insulin Human Regular (Novolin R Iv Drip) 150 ml @ As Directed STK-MED ONCE IV ; Start 10/31/16 at 00:02; Stop 10/31/16 at 00:03; Status DC Ondansetron HCl (Zofran) 4 mg PRN Q8HRS PRN IV NAUSEA/VOMITING Last administered on 10/31/16 09:27; Start 10/31/16 at 00:15; Stop 11/01/16 at 00:14; Status DC Morphine Sulfate 4 mg 4 mg PRN Q2HR PRN IV SEVERE PAIN Last administered on 10/31 17:42; Start 10/31/16 at 00:15; Stop 10/31/16 at 18:17; Status DC Sodium Chloride (Iv Sodium Chloride 0.9% 1000ml Bag) 1,000 ml @ 150 mls/hr Q6H40M IV Last administered on 10/31/16 06:45; Start 10/31/16 at 00:04; Stop 10/31/16 at 08:11; Status DC Acetaminophen 650 mg 650 mg PRN Q4HRS PRN PO FEVER; Start 10/31/16 at 00:15; Stop 11/01/16 at 00:14; Status DC Dextrose/Sodium Chloride (Iv D5% - NS) 1,000 ml @ 250 mls/hr Q4H IV Last administered on 10/31/16 08:15; Start 10/31/16 at 08:15; Stop 10/31/16 at 18:17; Status DC Diazepam (Valium) 5 mg PRN Q8HRS PRN PO ANXIETY; Start 10/31/16 at 09:15; Stop 10/31/16 at 09:25; Status DC Insulin Aspart (Novolog) 35 units TIDAC SQ Last administered on 11/02/16 08:45 ; Start 10/31/16 at 11:30; Stop 11/02/16 at 10:27; Status DC Tramadol HCl (Ultram) 50 mg PRN Q6HRS PRN PO PAIN Last administered on 13:00; Start 10/31/16 at 09:15 Trazodone HCl (Desyrel) 100 mg QHS PO ; Start 10/31/16 at 21:00; Stop 10/31/16 at 21:00; Status DC Gabapentin (Neurontin) 600 mg TID PO Last administered on 11/01/16 21:02; Start 10/31/16 at 14:00 Insulin Detemir (Levemir) 75 units BID SQ ; Start 10/31/16 at 10:00; Stop at 10:00; Status DC Diazepam (Valium) 5 mg PRN Q6HRS PRN PO ANXIETY Last administered on 11/01/16 21:08; Start 10/31/16 at 12:00 Trazodone HCl (Desyrel) 100 mg PRN QHS PRN PO INSOMNIA; Start 10/31/16 at 21:00 Insulin Detemir (Levemir) 85 units QHS SQ ; Start 11/01/16 at 21:00; Stop at 21:00; Status DC Insulin Detemir (Levemir) 43 units 1X ONCE SQ Last administered on 10/31/16 10 :46; Start 10/31/16 at 10:30; Stop 10/31/16 at 10:31; Status DC Insulin Detemir (Levemir) 43 units 1X ONCE SQ ; Start 10/31/16 at 10:00; Stop at 10:01; Status UNV Metronidazole (Flagyl) 500 mg Q8HRS PO Last administered on 11/01/16 14:13; Start 10/31/16 at 14:00; Stop 11/01/16 at 14:44; Status DC Lorazepam (Ativan) 0.5 mg 1X ONCE IV Last administered on 10/31/16 20:20; Start 10/31/16 at 20:30; Stop 10/31/16 at 20:31; Status DC Oxycodone HCl (Roxicodone) 5 mg PRN Q6HRS PRN PO SEVERE PAIN Last administered on 11/02/16 08:39; Start 10/31/16 at 22:00 Insulin Detemir (Levemir) 75 units BID SQ Last administered on 11/02/16 08:46; Start 11/01/16 at 21:00; Stop 11/02/16 at 10:27; Status DC Enoxaparin Sodium (Lovenox 40mg Syringe) 40 mg Q24H SQ ; Start 11/01/16 at 18:00 ; Stop 11/01/16 at 18:00; Status DC Insulin Aspart (Novolog) 50 units 1X ONCE SQ Last administered on 11/01/16 17: 53; Start 11/01/16 at 17:15; Stop 11/01/16 at 17:16; Status DC Enoxaparin Sodium (Lovenox 40mg Syringe) 40 mg Q24H SQ ; Start 11/01/16 at 20:00 Insulin Aspart (Novolog) 45 units TIDAC SQ Last administered on 11/02/16 12:45 ; Start 11/02/16 at 11:30 Insulin Detemir (Levemir) 85 units BID SQ ; Start 11/02/16 at 21:00 Insulin Aspart (Novolog) 0-9 UNITS QIDACHS SQ Last administered on 11/02/16 12: 46; Start 11/02/16 at 11:30 Dextrose (Dextrose 50%-Water Syringe) 12.5 gm PRN Q15MIN PRN IV SEE COMMENTS; Start 11/02/16 at 10:30 Active Scripts Active Flagyl (Metronidazole) 500 Mg Tablet 500 Mg PO Q8HRS Ultram (Tramadol Hcl) 50 Mg Tablet 50 Mg PO Q6H PRN Lantus Solostar (Insulin Glargine,Hum.rec.anlog) 100 Unit/1 Ml Insuln.pen 75 Unit SQ BID Reported Trazodone Hcl 100 Mg Tablet 1 Tab PO QHS Novolog Flexpen (Insulin Aspart) 100 Unit/1 Ml Insuln.pen 35 Unit SQ TIDAC Valium (Diazepam) 5 Mg Tablet 5 Mg PO PRN Q8HRS PRN Gabapentin 600 Mg Tablet 600 Mg PO TID Vitals/I & O Vital Sign - Last 24 Hours 11/01/16 11/01/16 11/01/16 11/01/16 15:00 16:05 18:41 19:25 Temp 98.5 98.2 98.5 98.2 Pulse 114 117 Resp 18 20 B/P 128/72 120/70 Pulse Ox 95 95 95 98 O2 Delivery Room Air Room Air Room Air Room Air 11/01/16 11/01/16 11/01/16 11/01/16 20:00 22:24 22:45 23:50 Temp 98.8 98.8 Pulse 112 Resp 18 B/P 136/82 Pulse Ox 96 O2 Delivery Room Air Room Air Room Air Room Air 11/02/16 11/02/16 11/02/16 11/02/16 01:10 03:10 07:00 08:00 Temp 98.4 98.0 98.4 98.0 Pulse 119 113 Resp 20 18 B/P 129/68 104/72 Pulse Ox 92 100 O2 Delivery Room Air Room Air Room Air Room Air 11/02/16 11/02/16 11/02/16 11/02/16 08:39 09:39 11:00 13:00 Temp 98.0 98.0 Pulse 105 Resp 19 18 18 20 B/P 109/68 Pulse Ox 100 99 99 99 O2 Delivery Room Air Room Air Room Air Room Air Intake and Output 11/01/16 11/01/16 11/02/16 15:00 23:00 07:00 Intake Total 900 ml 600 ml Balance 900 ml 600 ml KENNY MELENDEZ MD Nov 02, 2016 13:12
[2016-11-02 15:00] VITALS: BP 122/63
[2016-11-02 19:57] VITALS: BP 118/61
[2016-11-02] MEDS: ENOXAPARIN 40 MG/0.4 ML SYRINGE. SQ SCH (20:00)
[2016-11-02] MEDS ORDERED: ONDANSETRON ODT 4 MG TAB.RAPDIS. PO PRN (22:00)
[2016-11-02 23:10] VITALS: BP 102/65
[2016-11-03 03:10] VITALS: BP 111/67
[2016-11-03] MEDS: OXYCODONE IR 5 MG TABLET. PO PRN ×2 (04:27→14:15)
[2016-11-03] MEDS: TRAMADOL 50 MG TABLET. PO PRN ×2 (04:28→14:15)
[2016-11-03] MEDS: DIAZEPAM 5 MG TABLET PO PRN (04:29)
[2016-11-03 07:00] VITALS: BP 103/65
[2016-11-03] MEDS: GABAPENTIN 300 MG CAPSULE. PO SCH ×3 (08:06→14:00)
[2016-11-03] MEDS: INSULIN ASPART 300 UNITS/3 ML INSULN.PEN SQ SCH ×6 (08:15→16:47)
[2016-11-03] MEDS: INSULIN DETEMIR 300 UNITS/3 ML INSULN.PEN. SQ SCH (09:47)
[2016-11-03] MEDS ORDERED: INSU100I27 SQ (11:01)
[2016-11-03] MEDS ORDERED: OXYC5TAB PO (11:01)
[2016-11-03] MEDS ORDERED: SULF1TAB3 PO (11:01)
[2016-11-03] MEDS ORDERED: INSU100I17 SQ (11:01)
[2016-11-03 11:15] VITALS: BP 113/67
[2016-11-03] MEDS ORDERED: SMZ/TMP 800/160MG TABLET. PO SCH (11:30)
--- NOTE | 2016-11-03 12:44 | PDOC3 ---
Discharge Summary [facility] Date of Admission: Oct 30, 2016 Discharge Date: Nov 03, 2016 Admitting Diagnosis 1. Hyperglycemia: 2. Abd pain: chroni 3. L thumb pain: infiltrated IV. 4. Hepatomegaly and hepatic steatosis. 5. . Splenomegaly. 6. 6 mm fat density lesion along the upper pole of the left kidney, possibly due to focal cortical scarring or a tiny angiomyolipoma, stable in appearance. 7. 2.2 cm left ovarian cyst. Problems: Final Diagnosis Brief Hospital Course Ms. Smith is a 25 old F, comes here every month for hyperglycemia. She has medicaid, pcp in clinic, saying compliant with meds, not sure WHY comes here every month for hyperglycemia. Pt got better with insulin drip, home levemir 75ubid, aspart 45u tid. i increase to 85u bid, 45u tid for now, still high glucose in the morning. Pt said she didnot take snacks. Pt likely not compliant, told her to increase insulin as needed at home. left thumb mild swelling with 2 blisters from iv. Pt require abx and refuse to see ortho, saying would like to fu PCP tmr. i told her abx likely not helping, ice may help. Pt got MARS infection before, very concern. will give bactrim for 7ds. dc time 35min. dc home today if Glucose <300 General: Alert, Oriented X3, Cooperative Heart: Regular rate Lungs: Clear Abdomen: Normal bowel sounds, Soft, No tenderness Extremities: Other (L thumb distal joint and tip with bruise, 2 blisters.) Skin: No rashes Patient History: Anxiety disorder 32 MOTHER, Onset:Unknown FH: glaucoma 32 MOTHER, Onset:Unknown FH: ovarian cancer 32 MOTHER, Onset:Unknown Grandmother, Onset:Unknown Aunt--maternal, Onset:Unknown Family history: Angina (situation) 33 FATHER, , Age:Unknown, Onset:Unknown 32 MOTHER, Onset:Unknown Family history: Depression (situation) 32 MOTHER, Onset:Unknown No Family History of: Family history: Asthma Family history: Autoimmune disease (situation) Family history: Blood disorder (situation) Family history: Breast disease (situation) Family history: Cardiomyopathy (situation) Family history: Cardiovascular disease (situation) Family history: Crohn's disease (situation) Family history: Diabetes mellitus (situation) Family history: Epilepsy (situation) Family history: Gallbladder disease (situation) Family history: Gastrointestinal disease (situation) Family history: Hemophilia (situation) Family history: Hypertension (situation) Family history: Obesity (situation) Family history: Schizophrenia (situation) Family history: Sickle cell trait (situation) Family history: Suicide (situation) Family history: neoplasm - trachea/bronchus/lung (situation) Family history: neoplasm - urinary organ (situation) Family history: neoplasm of skin (situation) Malignant hyperthermia Sleep apnea Unknown Problems: Disposition home CONDITION AT DISCHARGE: Improved Diet ada Scheduled Gabapentin (Gabapentin) 600 MG PO TID (Reported) Insulin Aspart (Novolog Flexpen) 45 UNITS SQ TIDAC Insulin Detemir (Levemir Flextouch) 85 UNITS SQ BID Sulfamethoxazole/Trimethoprim (Sulfamethoxazole-Tmp Ds Tablet) 1 TAB PO BID Trazodone Hcl (Trazodone Hcl) 1 TAB PO QHS (Reported) Scheduled PRN Diazepam (Valium) 5 MG PO PRN Q8HRS PRN PRN ANXIETY (Reported) Oxycodone Hcl (Oxycodone Hcl) 5 MG PO PRN Q6HRS PRN PRN SEVERE PAIN Tramadol Hcl (Ultram) 50 MG PO Q6H PRN PRN PAIN Discontinued Medications Insulin Aspart (Novolog Flexpen) 35 UNIT SQ TIDAC (Reported) Insulin Glargine,Hum.rec.anlog (Lantus Solostar) 75 UNIT SQ BID Metronidazole (Flagyl) 500 MG PO Q8HRS Follow Up pcp this week KENNY MELENDEZ MD Nov 03, 2016 12:44
[2016-11-03 15:00] VITALS: BP 109/64
== END 2016-11-03 19:10 | disposition home or self-care (01) | DRG 639 ==
LOC: ER 21:09 → 1 WEST ICU 23:21 → 6 SOUTH 10-31 15:57
PROVIDERS: ADMIT Internal Medicine; ATTEND Internal Medicine
DX: E10.10 Type 1 diabetes mellitus with ketoacidosis without coma (principal); K76.0 Fatty (change of) liver, not elsewhere classified; G89.29 Other chronic pain; E10.40 Type 1 diabetes mellitus with diabetic neuropathy, unspecified; N83.202 Unspecified ovarian cyst, left side; Z82.0 Family history of epilepsy and other diseases of the nervous system; Z82.49 Family history of ischemic heart disease and other diseases of the circulatory system; Z83.3 Family history of diabetes mellitus; Z81.8 Family history of other mental and behavioral disorders; Z90.721 Acquired absence of ovaries, unilateral; Z83.511 Family history of glaucoma; Z90.49 Acquired absence of other specified parts of digestive tract; Z91.14 Patient's other noncompliance with medication regimen; Z91.19 Patient's noncompliance with other medical treatment and regimen; Z82.5 Family history of asthma and other chronic lower respiratory diseases; Z79.4 Long term (current) use of insulin; Z88.1 Allergy status to other antibiotic agents; Z88.5 Allergy status to narcotic agent; Z88.0 Allergy status to penicillin; Z88.8 Allergy status to other drugs, medicaments and biological substances
CPT/HCPCS: 36415; 71010; 74176; 80048; 80053; 81001; 81025; 82947; 84702; 85027; 87086; 87641; 93005; 96361; 96365; 96375; 96376; J1815; J2060; J2270; J2405; J7030; J7042; 99291-25

== ENCOUNTER 2016-11-10 22:01 | Inpatient (IN) | payer MEDICAID ==
[~2016-11-10] VITALS: Ht 170.2 cm; Wt 104.8 kg
[~2016-11-10 22:01] MED LIST changes: +INSU100I27 SQ; +OXYC5TAB PO; +SULF1TAB3 PO
[2016-11-10] MEDS ORDERED: IV NORMAL SALINE 1000ML BAG 1,000 ML IV SCH (23:00)
[2016-11-10] MEDS ORDERED: VANCOMYCIN 1.5 GM in IV NORMAL SALINE 500ML BAG 500 ML IV ONE (23:00)
[2016-11-10 23:53] LABS: BASO % 1 % (0-3); EOS % 2 % (0-3); HEMATOCRIT 35.1 % (36.0-47.0); HEMOGLOBIN 11.1 g/dL (12.0-15.5); LYMPH % 31 % (24-48); MEAN CORPUSCULAR HEMOGLOBIN 25 pg (25-35); MEAN CORPUSCULAR HGB CONC 32 g/dL (31-37); MEAN CORPUSCULAR VOLUME 78 fL (79-100); MONO % 8 % (0-9); NEUT % 58 % (31-73); PLATELET COUNT 266 x10^3/uL (140-400); RED BLOOD COUNT 4.53 x10^6/uL (3.50-5.40); WHITE BLOOD COUNT 6.6 x10^3/uL (4.0-11.0)
[2016-11-10 23:55] LABS: BILIRUBIN,URINE NEGATIVE (NEG); GLUCOSE,URINE >=1000 mg/dL (NEG); NITRITE,URINE NEGATIVE (NEG); PROTEIN,URINE NEGATIVE (NEG-TRACE); UROBILINOGEN,URINE 0.2 mg/dL (0.2 mg/dL)
[2016-11-11] LABS: CALCIUM 8.7 mg/dL (8.5-10.1); CREATININE 0.8 mg/dL (0.6-1.0); POTASSIUM 4.1 mmol/L (3.5-5.1)
[2016-11-11 00:06] LABS: ALBUMIN 3.9 g/dL (3.4-5.0); ALBUMIN/GLOBULIN RATIO 0.9 (1.0-1.7); TOTAL BILIRUBIN 0.4 mg/dL (0.2-1.0); TOTAL PROTEIN 8.2 g/dL (6.4-8.2)
[2016-11-11 00:11] LABS: RBC,URINE TNTC /HPF (0-2)
[2016-11-11 00:12] LABS: BACTERIA,URINE FEW /HPF (0-FEW); SQUAMOUS EPITHELIAL CELL,UR MOD /LPF; YEAST,URINE PRESENT /HPF
[2016-11-11] MEDS ORDERED: ONDANSETRON PF 4 MG/2 ML VIAL. IV ONE (00:45)
[2016-11-11] MEDS ORDERED: HYDROMORPHONE 2 MG/ML VIAL. IV ONE (00:45)
[2016-11-11] MEDS ORDERED: ONDANSETRON PF 4 MG/2 ML VIAL. IV PRN (01:00)
[2016-11-11] MEDS ORDERED: ACETAMINOPHEN 325 MG TABLET. PO PRN (01:00)
[2016-11-11] MEDS: IV NORMAL SALINE 1000ML BAG 1,000 ML IV SCH ×3 (01:00→17:39)
--- NOTE | 2016-11-11 01:22 | PHYS DOC ---
Past Medical History Past Medical History: Diabetes-Type I, MRSA, Other Additional Past Medical Histor: neuropathy, ovarian cyst,CHRONIC ABD PAIN, VENTRAL HERNIA, hyperglycemia Past Surgical History: Appendectomy, Cholecystectomy, Oophorectomy, Other Additional Past Surgical Histo: R fallopian tube removed, L ovarian cyst removed,HERNIA REPAIR, I&D L ARM Alcohol Use: None Drug Use: None Adult General Chief Complaint Chief Complaint: HYPERGLYCEMIA HPI HPI Patient is a 25 year old female who presents to the ER today secondary to concern for infection to her left thumb. Patient has a history significant for diabetes that has been poorly controlled for several years. Patient reports that she was admitted to the hospital couple weeks ago and an IV was placed in her left thumb. Patient reports prior to leaving the hospital she thought that it might be infected so they started her on some Bactrim. Patient reports that she was discharged from the hospital on November 03 and started on Bactrim at the time of discharge. Patient reports that she finished her antibiotic approximately 2 days ago and noticed that the thumb started to get more red warm and tender. Patient reports that the thumb is been gradually getting worse and she's been discharge. Patient reports that when she was discharged she went to [facility] on November 05 and they drained a small abscess in her left thumb. She reports that she been taking her antibiotics however hasn't noticed any improvement and wants antibiotics finished she reports her some is gotten worse. Patient reports she does not have any history of hypertension CHF COPD. Patient does have diabetes, status post cholecystectomy, appendectomy, inguinal hernia repair, , right oophorectomy. Patient reports she does not smoke drink or do any drugs. Patient is allergic to penicillin, codeine, doxycycline, fentanyl, Pringle. Patient reports her blood sugar today was also elevated. Patient reports that when she went to his [facility], they increased her Lantus from 75 units to 90 units every day. Patient denies any fevers shakes chills. Patient reports she been nauseous and having some vomiting. Patient denies any diarrhea chest pain shortness of breath dysuria frequency urgency or bowel pain. Patient reports today upon arrival to the ER her blood sugar was H HH. She reports that this is despite taking 90 units of Lantus and 10 units of Humalog one hour prior to arrival. Patient's physical exam is remarkable for her left thumb being erythematous with some necrotic tissue noted at the distal aspect of her thumb. Patient does have capillary refill intact. Patient on the dorsal aspect of her thumb has an area of decreased sensation and blanching. Patient's heart rate was tachycardic at 120 upon arrival. Patient's lab workup in the ER was remarkable for an elevated blood sugar. Patient's blood sugar was 400s. This is much lower than the HHH that was anticipated upon arrival to the ER. Patient had delay and management of her diabetes and tachycardia secondary to severe difficulty with obtaining an IV. Anesthesia was consultative they're able to obtain an IV on the patient with minimal v difficulty. A/P #1 cellulitis to left thumb. According to the patient this is likely secondary to an IV that was placed in her thumb during her last admission. Patient has completed a full course of antibiotics and now has recurrent and worsening redness and warmth to her thumb. Patient will be admitted to the hospital secondary to likely failure of her outpatient antibiotic regimen and need for IV antibiotics. Patient was started on vancomycin and clindamycin in the ED. Patient's blood sugars were controlled by IV fluids and a sliding scale was ordered for the patient. #2 hyperglycemia. #3 chronic pain. Review of Systems Review of Systems Constitutional: Denies fever or chills [] Eyes: Denies change in visual acuity, redness, or eye pain [] HENT: Denies nasal congestion or sore throat [] All other review systems are negative except as documented in the history of present illness portion. Current Medications Current Medications Current Medications Medications (Trade) Dose Ordered Sig/Naya Start Time Stop Time Status Last Admin Dose Admin Sodium Chloride 1,000 ml @ 1,000 mls/hr Q1H 11/10/16 23:00 11/10/16 23:59 DC 11/11/16 00:26 1,000 MLS/HR Vancomycin HCl/ Sodium Chloride (Iv Sodium Chloride 0.9% 500ml Bag) 500 ml @ 250 mls/hr 1X ONCE 11/10/16 23:00 11/11/16 00:59 DC 11/11/16 00:27 250 MLS/HR Allergies Allergies Allergies Coded Allergies Type Severity Reaction Last Updated Verified Penicillins Allergy Intermediate 01/29/16 Yes codeine Allergy Intermediate Tolerates Dilaudid, MORPHINE 01/29/16 Yes doxycycline Allergy Intermediate 01/29/16 Yes fentanyl Allergy Intermediate 01/29/16 Yes hydrocodone Adverse Reaction Mild itching 10/17/16 Yes Physical Exam Physical Exam Constitutional: Well developed, well nourished, no acute distress, non-toxic appearance. [] HENT: Normocephalic, atraumatic, bilateral external ears normal, oropharynx moist, no oral exudates, nose normal. [] Eyes: PERRLA, EOMI, conjunctiva normal, no discharge. [] Neck: Normal range of motion, no tenderness, supple, no stridor. [] Cardiovascular:Heart rate regular tachycardic Lungs & Thorax: Bilateral breath sounds clear to auscultation [] Abdomen: Bowel sounds normal, soft, no tenderness, no masses, no pulsatile masses. [] Skin: See above Back: No tenderness, no CVA tenderness. [] Extremities: No tenderness, see above Neurologic: Alert and oriented X 3, normal motor function, normal sensory function, no focal deficits noted. [] Psychologic: Affect normal, judgement normal, mood normal. [] Current Patient Data Vital Signs Vital Signs Date Time Temp Pulse Resp B/P Pulse Ox O2 Delivery O2 Flow Rate FiO2 11/10/16 23:21 113 18 122/73 98 Room Air 11/10/16 22:31 98.0 98.0 Lab Values Laboratory Tests Test 11/10/16 23:45 White Blood Count 6.6x10^3/uL (4.0-11.0) Red Blood Count 4.53x10^6/uL (3.50-5.40) Hemoglobin 11.1g/dL (12.0-15.5) L Hematocrit 35.1% (36.0-47.0) L Mean Corpuscular Volume 78fL (79-100) L Mean Corpuscular Hemoglobin 25pg (25-35) Mean Corpuscular Hemoglobin Concent 32g/dL (31-37) Red Cell Distribution Width 17.0% (11.5-14.5) H Platelet Count 266x10^3/uL (140-400) Neutrophils (%) (Auto) 58% (31-73) Lymphocytes (%) (Auto) 31% (24-48) Monocytes (%) (Auto) 8% (0-9) Eosinophils (%) (Auto) 2% (0-3) Basophils (%) (Auto) 1% (0-3) Neutrophils # (Auto) 3.8x10^3uL (1.8-7.7) Lymphocytes # (Auto) 2.0x10^3/uL (1.0-4.8) Monocytes # (Auto) 0.5x10^3/uL (0.0-1.1) Eosinophils # (Auto) 0.1x10^3/uL (0.0-0.7) Basophils # (Auto) 0.0x10^3/uL (0.0-0.2) Urine Collection Type Unknown Urine Color Yellow Urine Clarity Clear Urine pH 6.0 Urine Specific [place] 1.020 Urine Protein Negativemg/dL (NEG-TRACE) Urine Glucose (UA) >=1000mg/dL (NEG) Urine Ketones (Stick) Negativemg/dL (NEG) Urine Blood Large (NEG) Urine Nitrite Negative (NEG) Urine Bilirubin Negative (NEG) Urine Urobilinogen Dipstick 0.2mg/dL (0.2 mg/dL) Urine Leukocyte Esterase Negative (NEG) Urine RBC Tntc/HPF (0-2) Urine WBC 1-4/HPF (0-4) Urine Squamous Epithelial Cells Mod/LPF Urine Bacteria Few/HPF (0-FEW) Urine Yeast Present/HPF Sodium Level 130mmol/L (136-145) L Potassium Level 4.1mmol/L (3.5-5.1) Chloride Level 95mmol/L (98-107) L Carbon Dioxide Level 19mmol/L (21-32) L Anion Gap 16 (6-14) H Blood Urea Nitrogen 11mg/dL (7-20) Creatinine 0.8mg/dL (0.6-1.0) Estimated GFR (Cockcroft-Gault) 86.0 BUN/Creatinine Ratio 14 (6-20) Glucose Level 443mg/dL (70-99) H Calcium Level 8.7mg/dL (8.5-10.1) Total Bilirubin 0.4mg/dL (0.2-1.0) Aspartate Amino Transferase (AST) 40U/L (15-37) H Alanine Aminotransferase (ALT) 58U/L (14-59) Alkaline Phosphatase 188U/L (46-116) H Total Protein 8.2g/dL (6.4-8.2) Albumin 3.9g/dL (3.4-5.0) Albumin/Globulin Ratio 0.9 (1.0-1.7) L Laboratory Tests 11/10/16 23:45 Laboratory Tests 11/10/16 23:45 EKG EKG [] Radiology/Procedures Radiology/Procedures X-ray revealed no evidence of osteomyelitis. [] Course & Med Decision Making Course & Med Decision Making Pertinent Labs and Imaging studies reviewed. (See chart for details) [] Dragon Disclaimer Dragon Disclaimer This electronic medical record was generated, in whole or in part, using a voice recognition dictation system. Departure Departure Impression: Primary Impression: Elevated blood sugar Additional Impressions: Cellulitis Inadequate pain control Uncontrolled diabetes mellitus Disposition: ADMITTED INPATIENT Admitting Physician: Other (Reusch) Condition: GUARDED Referrals: NO PCP (PCP) Problem Qualifiers DALY OTERO MD Nov 11, 2016 01:22
--- NOTE | 2016-11-11 01:24 | ACF ---
Admission Forms Criteria DIABETES Clinical Indications for Admission to Inpatient Care (Place 'X' for any and all applicable criteria): Admission is indicated by presence of ALL (if I & II) or ANY ONE (if III or IV) of the following (1)(2)(3)(4): [ ]I. Diabetes is uncontrolled as indicated by ANY ONE of the following: [ ]a) Diabetic ketoacidosis as indicated by ALL of the following (8): [ ]i) Hyperglycemia (eg, plasma glucose greater than 200 mg/ dL (11.1 mmol/L)) [ ]ii) Acidosis (eg, arterial pH less than 7.30, serum bicarbonate level less than 15 mEq/L (mmol/L)) [ ]iii) Moderate ketonuria or ketonemia [ ]b) Hyperglycemic hyperosmolar state as indicated by ALL of the following(9)(10): [ ]i) Neurologic dysfunction (eg, stupor, coma, hemiparesis , seizure)(13) [ ]ii) Plasma glucose greater than 600 mg/dL (33.3 mmol/L) [ ]iii) Serum osmolality greater than 320 mOsm/kg (mmol/kg) [ ]c) Severe signs or symptoms secondary to hyperglycemia indicated by ANY ONE of the following: [ ]i) Altered mental status(10) [ ]ii) Significant hypovolemia or dehydration [ ]iii) Intractable nausea or vomiting [ ]iv) Unexplained fever or severe infection [ ]v) Severe electrolyte abnormality (eg, hypokalemia, hyperkalemia, hypernatremia) [ ]II. Management at other levels of care (Also use Diabetes: Observation Care as appropriate) is not feasible because of ANY ONE of the following: [ ]a) Condition was not adequately corrected with treatment at other levels of care. [ ]b) Treatment at other levels of care is not appropriate because of condition severity (eg, hyperosmolar coma). [ ]III. Contraindications and/or Inappropriate clinical situations for Observational Care in patients with Diabetes, when ANY ONE of the following is required: [ ]a) Patient require specific diagnostic workup or therapeutic intervention 22 [ ]b) Patient with abnormal vital signs or altered mental status 23 [ ]IV. General contraindications and/or Inappropriate clinical situations for Observational Care in patients with Diabetes, when ANY ONE of the following is required: [ ]a) Prediction of prolongation of LOS based on ANY ONE of the following may be considered as a contraindication for observational care 2, 3, 4, 5, 6, 7, 8, 9, 10, 11 [ ]i) Age > 65 yrs. [ ]ii) Patient arriving by ambulance [ ]iii) Patient with high acuity [ ]iv) Patient requiring vital sign monitoring [ ]v) Patient on IV medication [ ]b) Systolic blood pressures 180mmHg 3,12 [ ]c) Patient with altered mental status including delirium and other alteration of consciousness, (3) [ ]d) Patient whose discharge disposition will be to a prison home or rehabilitation home should not be managed in Emergency Department Observation Unit. CMS rule requires 3 days hospital stay before such placement.3,13 [ ]e) Patient with failure to thrive due to broad array of etiologies 3,16,17 [ ]f) Inability to ambulate 3,14 Extended stay beyond goal length of stay may be needed for(3)(20): [ ]a) Treatment of precipitating causes [ ]b) Development of hypoglycemia [ ]c) Complications of treatment [ ]d) Complications of decompensated diabetes (eg, acute gastric dilatation, persistent metabolic or neurologic derangement) [ ]e) Active Comorbidities [ ]f) Older patients( 65 years or older) The original [employer] content created by [employer] has been revised. The portions of the content which have been revised are identified through the use of italic text or in bold,and [facility] [employer] [employer] has neither reviewed nor approved the modified material. All other unmodified content is copyright [employer]. Please see references footnoted in the original [employer] edition 2016 EPI ANTONIO Nov 11, 2016 01:24
[2016-11-11] MEDS ORDERED: DEXTROSE 50% 25 GM / 50ML DISP.SYRIN. IV PRN ×2 (02:00)
--- NOTE | 2016-11-11 02:04 | ACF ---
Admission Forms Criteria CELLULITIS Clinical Indications for Admission to Inpatient Care (Place 'X' for any and all applicable criteria): Admission is indicated for ANY ONE of the following(1)(2)(3)(4)(5): [X]I. Limb-threatening infection [ ]II. High-risk comorbid condition as indicated by ANY ONE of the following: [ ]a) Uncontrolled diabetes (eg, HbA1c greater than 10% (0.1)) [ ]b) Cirrhosis [ ]c) Neutropenia [ ]d) Asplenia [ ]e) Immunosuppression [ ]f) Symptomatic heart failure [ ]III. Failure of outpatient therapy as indicated by ALL of the following: [ ]a) Progression or no improvement after adequate trial (minimum of 48 hours, with longer period for stable lower extremity infection) [ ]b) Adequate antibiotic regimen as indicated by use of ANY ONE of the following: [ ]i) First-generation cephalosporin (e.g., cephalexin) [ ]ii) Antistaphylococcal penicillin (e.g., dicloxacillin) [ ]iii) Penicillin-allergic patient regimen (clindamycin, extended-spectrum fluoroquinolone, or doxycycline) [ ]iv) Resistant organism (eg, methicillin-resistant Staphylococcus aureus) regimen (6) [ ]c) Outpatient intravenous therapy regimen is not appropriate due to ANY ONE of the following. (7)(8)(9)(10): [ ]i) It was tried and was not successful (eg, progression of infection). [ ]ii) It is not available or cannot be arranged in a clinically appropriate time frame (e.g., the next day). [ ]iii) Clinical presentation (eg, acuity of infection, rapidity of progression, confirmed or suspected bacteremia) is judged to require ALL of the following: [ ]1) Immediate initiation of intravenous therapy ( eg, cannot wait for next day) [ ]2) Intensity of patient monitoring and observation (eg, vital sign measurement, checks for infection progression) that cannot be provided at other than inpatient level of care [ ]IV. Mental status changes [ ]V. Bacteremia [ ]. Hemodynamic instability [ ]VII. Suspected necrotizing soft tissue infection (e.g., gas in tissue)(11)( 12) [ ]VIII. Orbital infection (13)(14) [ ]IX. Associated surgical procedure (e.g., abscess drainage, debridement) not amenable to outpatient, emergency department, or observation care [ ]X. Cutaneous gangrene [ ]XI. High fever (temperature greater than 39.5 degrees C (103.1 degrees F) (oral)) not responsive to outpatient, emergency department, or observation care therapy [ ]XIII. Inpatient admission required rather than observation care (Also use Cellulitis: Observation Care as appropriate) because of ANY ONE of the following : [ ]a) Periorbital or perineal infection that is severe or worsening [ ]b) Severe pain requiring acute inpatient management [ ]c) IV fluid to replace significant ongoing (e.g., for over 24 hours) losses (greater than 3L/m2 per day) [ ]d) Compartment syndrome monitoring (17) [ ]e) Strict or protective (eg, laminar flow) isolation [ ]f) Urgent debridement or skin grafting [ ]g) Bone or joint debridement [ ]h) Immediate inpatient surgery [ ]i) Other condition, treatment or monitoring requiring inpatient admission Extended stay beyond goal length of stay may be needed for (1)(18): [ ]a) Necrotizing soft tissue infection or fasciitis [ ]b) Gram-negative infection [ ]c) Methicillin-resistant Staphylococcal aureus (MRSA) infection [ ]d) Peripheral venous insufficiency with cellulitis [ ]e) Extensive edema [ ]f) Sepsis or continued Hemodynamic instability [ ]g) Continued high fever or mental status change [ ]h) Bacteremia [ ]i) Active serious comorbid conditions ( eg, heart failure, renal insufficiency) The original [employer] content created by [employer] has been revised. The portions of the content which have been revised are identified through the use of italic text or in bold, and [facility] has neither reviewed nor approved the modified material. All other unmodified content is copyright [employer] Please see references footnoted in the original [employer] edition 2016 Admission Criteria Met?: Yes EPI ANTONIO Nov 11, 2016 02:04
[2016-11-11 02:10] VITALS: BP 138/87
[2016-11-11] MEDS: CLINDAMYCIN 600MG PREMIX 50 ML IV SCH ×3 (06:20→21:39)
[2016-11-11 07:00] VITALS: BP 88/69
[2016-11-11] MEDS: HYDROMORPHONE 2 MG/ML VIAL. IV PRN ×4 (07:31→21:38)
[2016-11-11] MEDS: INSULIN ASPART 300 UNITS/3 ML INSULN.PEN SQ SCH ×4 (08:10→17:49)
--- NOTE | 2016-11-11 08:11 | RAD ---
Left thumb, 3 views, 11/10/2016: History: Thumb infection, possible abscess No fracture or destructive bony lesion is seen. No radiopaque foreign body is evident in the soft tissues. IMPRESSION: No significant bony abnormality is detected.
[2016-11-11 11:00] VITALS: BP 132/79
[2016-11-11] MEDS: ONDANSETRON PF 4 MG/2 ML VIAL. IV PRN ×3 (13:33→21:38)
[2016-11-11 15:00] VITALS: BP 115/70
[2016-11-11] MEDS ORDERED: TRAMADOL 50 MG TABLET. PO PRN (15:00)
[2016-11-11] MEDS ORDERED: DIAZEPAM 5 MG TABLET PO PRN (15:00)
[2016-11-11] MEDS ORDERED: OXYCODONE IR 5 MG TABLET. PO PRN (15:00)
--- NOTE | 2016-11-11 15:34 | HP ---
ADMIT DATE: 11/11/2016 CHIEF COMPLAINT: Right finger infection and elevated glucose. HISTORY OF PRESENT ILLNESS: The patient is a pleasant 25-year-old female, who is well known to our service. We admit her several times a month; usually, it is for chronic pain and diabetes and noncompliance, at this time, her right thumb was infected. I discussed the case with ER physician, and she is going to need the antibiotics and consults with Orthopedics and Wound Care. PAST MEDICAL HISTORY: Noncompliance, diabetes, hyperlipidemia, neuropathy, ovarian cyst, chronic pain, ventral hernia, appendectomy, cholecystectomy, hysterectomy, I and D of the left arm probable peripheral vascular disease. ALLERGIES: PENICILLIN, CODEINE, DOXYCYCLINE, FENTANYL, HYDROCODONE. FAMILY HISTORY: Diabetes. SOCIAL HISTORY: She does not drink, smoke, or take drugs. MEDICATIONS: Reviewed, please refer to the MRAD. REVIEW OF SYSTEMS: GENERAL: No history of weight change, weakness or fevers. SKIN: No bruising, hair changes or rashes. EYES: No blurred, double or loss of vision. NOSE AND THROAT: No history of nosebleeds, hoarseness or sore throat. HEART: No history of palpitations, chest pain or shortness of breath on exertion. LUNGS: Denies cough, hemoptysis, wheezing or shortness of breath. GASTROINTESTINAL: Denies changes in appetite, nausea, vomiting, diarrhea or constipation. GENITOURINARY: No history of frequency, urgency, hesitancy or nocturia. NEUROLOGIC: Denies history of numbness, tingling, tremor or weakness. PSYCHIATRIC: No history of panic, anxiety or depression. ENDOCRINE: She complains of elevated glucose. EXTREMITIES: She complains of right thumb infection. PHYSICAL EXAMINATION: VITAL SIGNS: Temperature afebrile, pulse 100, respirations 18, blood pressure 132/79. GENERAL: She is alert, cooperative, a little anxious, requesting a PICC line and narcotics. HEART: Distant S1, S2. LUNGS: Clear. ABDOMEN: Soft, positive bowel sounds. EXTREMITIES: The right thumb has a cellulitis with some blackening of the nailbed as well. There is also a 3 x 1.5 cm area of desquamation on the top of the thumb, just above the nail. ENDOCRINE: No thyromegaly. LYMPHATICS: No cervical nodes. HEMATOPOIETIC: No bruising. LABORATORY DATA: White count normal at 6, hemoglobin 11, platelets 266. Electrolytes: Sodium 130, potassium 4.1, chloride 95, bicarbonate 19. BUN 11, creatinine 0.8. Glucose 443, anion gap was 16. We have another one pending. ASSESSMENT AND PLAN: Infected right finger, probably multifactorial including peripheral vascular disease, uncontrolled diabetes, and possibly a recent IV site near the same area. The patient has been admitted. We will consult Orthopedics and Infectious Disease and the Wound Care, start IV antibiotics, sliding-scale insulin, resume her home meds, frequent labs. PROGNOSIS: Guarded. NIAL Dexter GUTIERREZ DO DR: ROSY/ric JOB#: [id number] / [id number]
[2016-11-11] MEDS: GABAPENTIN 300 MG CAPSULE. PO SCH ×2 (17:41→20:52)
[2016-11-11 19:54] VITALS: BP 117/58
[2016-11-11] MEDS: INSULIN DETEMIR 300 UNITS/3 ML INSULN.PEN. SQ SCH (20:52)
[2016-11-11] MEDS ORDERED: SMZ/TMP 800/160MG TABLET. PO SCH (21:00)
[2016-11-11] MEDS: traZODone 100 MG TABLET. PO SCH (21:37)
[2016-11-11 23:19] VITALS: BP 122/69
[2016-11-12] VITALS (9 sets, daily range): BP systolic 101–133; BP diastolic 67–102
[2016-11-12] MEDS: HYDROMORPHONE 2 MG/ML VIAL. IV PRN ×7 (01:33→22:06)
[2016-11-12] MEDS: ONDANSETRON PF 4 MG/2 ML VIAL. IV PRN ×3 (01:34→09:40)
[2016-11-12] MEDS: CLINDAMYCIN 600MG PREMIX 50 ML IV SCH (05:50)
[2016-11-12] MEDS: INSULIN ASPART 300 UNITS/3 ML INSULN.PEN SQ SCH ×6 (07:30→17:14)
[2016-11-12] MEDS ORDERED: IV RINGERS,LACTATED 1000ML 1,000 ML IV SCH (07:58)
[2016-11-12] MEDS ORDERED: LIDOCAINE 1% 1 ML SYRINGE. ID PRN (08:00)
[2016-11-12] MEDS ORDERED: MORPHINE SULFATE 2 MG/ML DISP.SYRIN. IV PRN (08:00)
[2016-11-12] MEDS ORDERED: HYDROMORPHONE 2 MG/ML VIAL. IV PRN (08:00)
[2016-11-12] MEDS ORDERED: ONDANSETRON PF 4 MG/2 ML VIAL. IV PRN (08:00)
[2016-11-12] MEDS ORDERED: PROCHLORPERAZINE 10 MG/2 ML VIAL. IV PRN (08:00)
[2016-11-12] MEDS: GABAPENTIN 300 MG CAPSULE. PO SCH ×3 (08:00→21:21)
--- NOTE | 2016-11-12 08:46 | PDOC ---
Infectious Disease Note Vital Sign Vital Signs Vital Signs Date Time Temp Pulse Resp B/P Pulse Ox O2 Delivery O2 Flow Rate FiO2 11/12/16 07:00 98.1 101 20 125/76 97 Room Air 98.1 Labs Lab Laboratory Tests Test 11/11/16 11:39 11/11/16 16:40 11/11/16 20:39 11/12/16 07:20 Glucose (Fingerstick) 185mg/dL (70-99) 251mg/dL (70-99) 162mg/dL (70-99) 131mg/dL (70-99) Objective Assessment Left thumb infection ? previous iv site DM Multiple admissions Plan Plan of Care change clinda to cefepime and vanc surgical exploration today please get cultures YUSRA FERRER MD Nov 12, 2016 08:46
[2016-11-12] MEDS: CEFEPIME HCL 1 GM in IV NORMAL SALINE 50ML 50 ML IV SCH ×2 (09:39→14:00)
[2016-11-12] MEDS: INSULIN DETEMIR 300 UNITS/3 ML INSULN.PEN. SQ SCH ×2 (09:56→22:08)
[2016-11-12] MEDS ORDERED: VANCOMYCIN 2 GM in IV NORMAL SALINE 500ML BAG 500 ML IV ONE (10:00)
[2016-11-12] MEDS: VANCOMYCIN PER PHARMACY MC PRN ×2 (10:06→10:08)
--- NOTE | 2016-11-12 11:03 | PDOC2 ---
CONSULT Date of Consult Date of Consult DATE: 11/11/16 TIME: 17:00 Reason for Consult Reason for Consult: left thumb pain Referring Physician Referring Physician: Arturo Identification/Chief Complaint Chief Complaint left thumb pain Source Source: Chart review, Patient History of Present Illness Reason for Visit: The patient is a 25 year old poorly controlled type I diabetic who is frequently admitted to [facility] for DKA who presents this admission with a complaint of left thumb pain. She states on her last admission 10 days ago they placed and IV into her thumb because she is a difficult stick. She was in the ICU and had potassium and insulin running through the IV. She states that she developed pain in the thumb over a period of two days and was told to ice it. She developed blistering and the IV was removed. Over the past 10 days she has developed worsening blistering, discoloration of the thumb, and severe pain in the distal tip. She reports that her pain is uncontrolled. Her BG is over 400, which she attributes to infection in the thumb. Her wbc is normal. She has been afebrile. She has been on antibiotics since readmission. Past Medical History Cardiovascular: HTN Psych: Anxiety Endocrine: Diabetes, Other Past Surgical History Past Surgical History: Appendectomy, Cholecystectomy, , Other Family History Family History: No Significant, Other Social History Social History: Parent ALCOHOL: none Drugs: None Lives: with Family Current Problem List Problem List Problems Medical Problems: (1) Cellulitis Status: Acute (2) Elevated blood sugar Status: Acute (3) Inadequate pain control Status: Acute (4) Uncontrolled diabetes mellitus Status: Acute Current Medications Current Medications Current Medications Sodium Chloride 1,000 ml @ 1,000 mls/hr Q1H IV Last administered on 11/11/16 00:26; Start 11/10/16 at 23:00; Stop 11/10/16 at 23:59; Status DC Vancomycin HCl 1.5 gm/Sodium Chloride 500 ml @ 250 mls/hr 1X ONCE IV Last administered on 11/11/16 00:27; Start 11/10/16 at 23:00; Stop 11/11/16 at 00:59 ; Status DC Clindamycin Phosphate (Cleocin 600 Mg Premix) 50 ml @ 100 mls/hr Q8HRS IV Last administered on 11/12/16 05:50; Start 11/11/16 at 06:00; Stop 11/12/16 at 08:42; Status DC Hydromorphone HCl (Dilaudid) 1 mg 1X ONCE IV Last administered on 11/11/16 00 :51; Start 11/11/16 at 00:45; Stop 11/11/16 at 00:46; Status DC Ondansetron HCl (Zofran) 4 mg 1X ONCE IV Last administered on 11/11/16 00:51 ; Start 11/11/16 at 00:45; Stop 11/11/16 at 00:46; Status DC Ondansetron HCl 4 mg 4 mg PRN Q8HRS PRN IV NAUSEA/VOMITING Last administered on 11/11/16 07:31; Start 11/11/16 at 01:00; Stop 11/11/16 at 12:47; Status DC Sodium Chloride (Iv Sodium Chloride 0.9% 1000ml Bag) 1,000 ml @ 125 mls/hr Q8H IV Last administered on 11/11/16 17:39; Start 11/11/16 at 01:00; Stop at 00:59; Status DC Acetaminophen (Tylenol) 650 mg PRN Q4HRS PRN PO FEVER; Start 11/11/16 at 01:00 ; Stop 11/12/16 at 00:59; Status DC Insulin Aspart (Novolog) 0-5 UNITS TIDWMEALS SQ Last administered on 11/11/16 08:10; Start 11/11/16 at 08:00 Hydromorphone HCl (Dilaudid) 0.5 mg PRN Q6HRS PRN IV PAIN Last administered on 11/11/16 13:33; Start 11/11/16 at 01:00; Stop 11/11/16 at 14:09; Status DC Dextrose (Dextrose 50%-Water Syringe) 12.5 gm PRN Q15MIN PRN IV SEE COMMENTS; Start 11/11/16 at 02:00 Dextrose (Dextrose 50%-Water Syringe) 12.5 gm PRN Q15MIN PRN IV SEE COMMENTS; Start 11/11/16 at 02:00; Status UNV Ondansetron HCl (Zofran) 4 mg PRN Q4HRS PRN IV NAUSEA/VOMITING Last administered on 11/12/16 09:40; Start 11/11/16 at 12:45 Hydromorphone HCl (Dilaudid) 0.5 mg PRN Q4HRS PRN IV PAIN Last administered on 11/12/16 09:40; Start 11/11/16 at 14:30 Diazepam (Valium) 5 mg PRN Q8HRS PRN PO ANXIETY; Start 11/11/16 at 15:00 Insulin Aspart (Novolog) 45 units TIDAC SQ Last administered on 11/11/16 17:49 ; Start 11/11/16 at 16:30 Insulin Detemir (Levemir) 85 units BID SQ Last administered on 11/12/16 09:56 ; Start 11/11/16 at 21:00 Oxycodone HCl (Roxicodone) 5 mg PRN Q6HRS PRN PO SEVERE PAIN; Start 11/11/16 at 15:00 Trimethoprim/ Sulfamethoxazole (Bactrim Ds) 1 tab BID PO ; Start 11/11/16 at 21: 00; Stop 11/11/16 at 21:00; Status DC Tramadol HCl (Ultram) 50 mg PRN Q6HRS PRN PO PAIN; Start 11/11/16 at 15:00 Trazodone HCl (Desyrel) 100 mg QHS PO Last administered on 11/11/16 21:37; Start 11/11/16 at 21:00 Gabapentin (Neurontin) 600 mg TID PO Last administered on 11/11/16 17:41; Start 11/11/16 at 15:30 Ondansetron HCl (Zofran) 4 mg PRN Q6HRS PRN IV NAUSEA/VOMITING; Start 11/12/16 at 08:00; Stop 11/12/16 at 18:00 Morphine Sulfate 1 mg 1 mg PRN Q10MIN PRN IV SEVERE PAIN (Second Choice); Start 11/12/16 at 08:00; Stop 11/13/16 at 07:59 Lactated Ringer's (Iv Lactated Ringers) 1,000 ml @ 30 mls/hr Q24H IV ; Start at 07:58; Stop 11/12/16 at 19:57 Lidocaine HCl 2 ml PRN 1X PRN ID PRIOR TO IV START; Start 11/12/16 at 08:00; Stop 11/12/16 at 18:00 Hydromorphone HCl (Dilaudid) 0.5 mg PRN Q10MIN PRN IV SEV PAIN, Second choice; Start 11/12/16 at 08:00; Stop 11/12/16 at 18:00 Prochlorperazine Edisylate 5 mg 5 mg PACU PRN PRN IV NAUSEA, MRX1; Start at 08:00; Stop 11/12/16 at 18:00 Cefepime HCl/ Sodium Chloride (Maxipime/Iv Sodium Chloride 0.9% 50ml) 50 ml @ 100 mls/hr Q8HRS IV Last administered on 11/12/16 09:39; Start 11/12/16 at 09: 00 Vancomycin HCl 1 each 1 each PRN DAILY PRN MC SEE COMMENTS Last administered on 11/12/16 10:08; Start 11/12/16 at 08:45 Vancomycin HCl 2 gm/Sodium Chloride 500 ml @ 250 mls/hr 1X ONCE IV Last administered on 11/12/16 09:39; Start 11/12/16 at 10:00; Stop 11/12/16 at 11:59 Vancomycin HCl/ Sodium Chloride (Iv Sodium Chloride 0.9% 500ml Bag) 500 ml @ 250 mls/hr Q8H IV ; Start 11/12/16 at 18:00 Vancomycin HCl 1 each 1X ONCE MC ; Start 11/13/16 at 09:30; Stop 11/13/16 at 09 :31 Active Scripts Active Sulfamethoxazole-Tmp Ds Tablet (Sulfamethoxazole/Trimethoprim) 1 Each Tablet 1 Tab PO BID 7 Days Oxycodone Hcl 5 Mg Tablet 5 Mg PO PRN Q6HRS PRN Levemir Flextouch (Insulin Detemir) 100 Unit/1 Ml Insuln.pen 85 Units SQ BID 30 Days Novolog Flexpen (Insulin Aspart) 100 Unit/1 Ml Insuln.pen 45 Units SQ TIDAC 30 Days Ultram (Tramadol Hcl) 50 Mg Tablet 50 Mg PO Q6H PRN Reported Trazodone Hcl 100 Mg Tablet 1 Tab PO QHS Valium (Diazepam) 5 Mg Tablet 5 Mg PO PRN Q8HRS PRN Gabapentin 600 Mg Tablet 600 Mg PO TID Allergies Allergies: Coded Allergies: Penicillins (Verified Allergy, Severe, ANAPHYLAXIS, 11/12/16) codeine (Verified Allergy, Intermediate, Tolerates Dilaudid, MORPHINE, 6/ 29/16) doxycycline (Verified Allergy, Intermediate, 01/29/16) fentanyl (Verified Allergy, Intermediate, 01/29/16) hydrocodone (Verified Adverse Reaction, Mild, itching, 10/17/16) ROS General: No: Appetite, Chills, Fatigue, Malaise, Night Sweats, Other Musculoskeletal: Yes Joint Pain, Yes Joint Swelling Physical Exam General: Alert, Oriented X3, Cooperative MUSCULOSKELETAL: Other (left thumb with discoloration that extends proximal to the IP joint. subungual hematoma. tense thumb pad, red and painful to the touch. warmth on the thenar emminence with minimal swelling. no swelling proximal or streaking into the forearm. no knavel's signs. neurovascularly intact distally. ) Vitals VITALS Vital Signs Date Time Temp Pulse Resp B/P Pulse Ox O2 Delivery O2 Flow Rate FiO2 11/12/16 10:15 Room Air 11/12/16 07:00 98.1 101 20 125/76 97 98.1 Labs Labs Laboratory Tests Test 11/10/16 21:30 11/10/16 23:45 11/11/16 02:17 11/11/16 07:38 Bedside Urine HCG, Qualitative Hcg negative (Negative) White Blood Count 6.6x10^3/uL (4.0-11.0) Red Blood Count 4.53x10^6/uL (3.50-5.40) Hemoglobin 11.1g/dL (12.0-15.5) Hematocrit 35.1% (36.0-47.0) Mean Corpuscular Volume 78fL (79-100) Mean Corpuscular Hemoglobin 25pg (25-35) Mean Corpuscular Hemoglobin Concent 32g/dL (31-37) Red Cell Distribution Width 17.0% (11.5-14.5) Platelet Count 266x10^3/uL (140-400) Neutrophils (%) (Auto) 58% (31-73) Lymphocytes (%) (Auto) 31% (24-48) Monocytes (%) (Auto) 8% (0-9) Eosinophils (%) (Auto) 2% (0-3) Basophils (%) (Auto) 1% (0-3) Neutrophils # (Auto) 3.8x10^3uL (1.8-7.7) Lymphocytes # (Auto) 2.0x10^3/uL (1.0-4.8) Monocytes # (Auto) 0.5x10^3/uL (0.0-1.1) Eosinophils # (Auto) 0.1x10^3/uL (0.0-0.7) Basophils # (Auto) 0.0x10^3/uL (0.0-0.2) Urine Collection Type Unknown Urine Color Yellow Urine Clarity Clear Urine pH 6.0 Urine Specific [place] 1.020 Urine Protein Negativemg/dL (NEG-TRACE) Urine Glucose (UA) >=1000mg/dL (NEG) Urine Ketones (Stick) Negativemg/dL (NEG) Urine Blood Large (NEG) Urine Nitrite Negative (NEG) Urine Bilirubin Negative (NEG) Urine Urobilinogen Dipstick 0.2mg/dL (0.2 mg/dL) Urine Leukocyte Esterase Negative (NEG) Urine RBC Tntc/HPF (0-2) Urine WBC 1-4/HPF (0-4) Urine Squamous Epithelial Cells Mod/LPF Urine Bacteria Few/HPF (0-FEW) Urine Yeast Present/HPF Sodium Level 130mmol/L (136-145) Potassium Level 4.1mmol/L (3.5-5.1) Chloride Level 95mmol/L (98-107) Carbon Dioxide Level 19mmol/L (21-32) Anion Gap 16 (6-14) Blood Urea Nitrogen 11mg/dL (7-20) Creatinine 0.8mg/dL (0.6-1.0) Estimated GFR (Cockcroft-Gault) 86.0 BUN/Creatinine Ratio 14 (6-20) Glucose Level 443mg/dL (70-99) Calcium Level 8.7mg/dL (8.5-10.1) Total Bilirubin 0.4mg/dL (0.2-1.0) Aspartate Amino Transf (AST/SGOT) 40U/L (15-37) Alanine Aminotransferase (ALT/SGPT) 58U/L (14-59) Alkaline Phosphatase 188U/L (46-116) Total Protein 8.2g/dL (6.4-8.2) Albumin 3.9g/dL (3.4-5.0) Albumin/Globulin Ratio 0.9 (1.0-1.7) Glucose (Fingerstick) 248mg/dL (70-99) 191mg/dL (70-99) Test 11/11/16 11:39 11/11/16 16:40 11/11/16 20:39 11/12/16 07:20 Glucose (Fingerstick) 185mg/dL (70-99) 251mg/dL (70-99) 162mg/dL (70-99) 131mg/dL (70-99) Laboratory Tests Test 11/11/16 11:39 11/11/16 16:40 11/11/16 20:39 11/12/16 07:20 Glucose (Fingerstick) 185mg/dL (70-99) 251mg/dL (70-99) 162mg/dL (70-99) 131mg/dL (70-99) Images Images hand xrays reveal no bony abnormality Assessment/Plan Assessment/Plan The patient is a 25 year old female who presents with severe pain and swelling in the thumb after an IV was placed there and possibly infiltrated 10 days ago. Plan is to take her to the OR tomorrow for I &D of her thumb, possible felon abscess, nail removal and subungual hematoma. The patient will need to be npo at midnight. CELIA MEDINA MD Nov 12, 2016 11:03
[2016-11-12] MEDS ORDERED: PROPOFOL 20 ML IV ONE (11:45)
[2016-11-12] MEDS ORDERED: ONDANSETRON PF 4 MG/2 ML VIAL. ONE (11:45)
[2016-11-12] MEDS ORDERED: LIDOCAINE 2% 100 MG/5 ML SYRINGE. ONE (11:45)
[2016-11-12] MEDS ORDERED: DEXAMETHASONE SOD PHOS 20 MG/5 ML VIAL. ONE (11:45)
[2016-11-12] MEDS ORDERED: DESFLURANE 31 TO 60 MINUTES IH ONE (11:45)
[2016-11-12] MEDS ORDERED: FENTANYL PF 100 MCG/2 ML VIAL. ONE (11:45)
[2016-11-12] MEDS ORDERED: BUPIVACAINE MPF 0.25% 30 ML VIAL. ONE ×2 (12:49→15:18)
[2016-11-12] MEDS ORDERED: BUPIVACAINE-EPI 0.25%-1:200000 MPF 30 ML VIAL. ONE ×2 (12:49→15:18)
[2016-11-12] MEDS ORDERED: MORPHINE SULFATE 10 MG/ML VIAL. ONE (13:14)
--- NOTE | 2016-11-12 13:48 | PDOC ---
BRIEF OPERATIVE NOTE Date: Nov 12, 2016 Pre-Op Diagnosis left thumb cellulitus/ felon abscess Post-Op Diagnosis left thumb possible frostbite injury Procedure Performed I &D left thumb, nail removal Surgeon Celia Medina MD Customs Verifier none Anesthesia Type: General Blood Loss minimal Specimens Obtained none Findings felon incision made on the lateral thumb, no purulence expressed. nail easily removed from the nailbed, no hematoma or purulence encountered. skin was denuded off the subcutaneous tissue. subcutaneous tissue was red and beefy. Had the appearance of a burn, not an infection. cultures were sent from the finger pulp space. Complications none Additional Remarks fingernail removed, xeroform placed over the nailbed with telfa. Keep nonadherent dressing over the thumb for the next week. fu in my office in 7-10 days for suture removal. CELIA MEDINA MD Nov 12, 2016 13:48
--- NOTE | 2016-11-12 13:56 | PDOC ---
ORTHO PROGRESS NOTES Vitals Vital Signs Date Time Temp Pulse Resp B/P Pulse Ox O2 Delivery O2 Flow Rate FiO2 11/12/16 11:55 97.0 93 18 95/54 97 Room Air 97.0 Labs Laboratory Tests Test 11/10/16 21:30 11/10/16 23:45 11/11/16 02:17 11/11/16 07:38 Bedside Urine HCG, Qualitative Hcg negative (Negative) White Blood Count 6.6x10^3/uL (4.0-11.0) Red Blood Count 4.53x10^6/uL (3.50-5.40) Hemoglobin 11.1g/dL (12.0-15.5) Hematocrit 35.1% (36.0-47.0) Mean Corpuscular Volume 78fL (79-100) Mean Corpuscular Hemoglobin 25pg (25-35) Mean Corpuscular Hemoglobin Concent 32g/dL (31-37) Red Cell Distribution Width 17.0% (11.5-14.5) Platelet Count 266x10^3/uL (140-400) Neutrophils (%) (Auto) 58% (31-73) Lymphocytes (%) (Auto) 31% (24-48) Monocytes (%) (Auto) 8% (0-9) Eosinophils (%) (Auto) 2% (0-3) Basophils (%) (Auto) 1% (0-3) Neutrophils # (Auto) 3.8x10^3uL (1.8-7.7) Lymphocytes # (Auto) 2.0x10^3/uL (1.0-4.8) Monocytes # (Auto) 0.5x10^3/uL (0.0-1.1) Eosinophils # (Auto) 0.1x10^3/uL (0.0-0.7) Basophils # (Auto) 0.0x10^3/uL (0.0-0.2) Urine Collection Type Unknown Urine Color Yellow Urine Clarity Clear Urine pH 6.0 Urine Specific [place] 1.020 Urine Protein Negativemg/dL (NEG-TRACE) Urine Glucose (UA) >=1000mg/dL (NEG) Urine Ketones (Stick) Negativemg/dL (NEG) Urine Blood Large (NEG) Urine Nitrite Negative (NEG) Urine Bilirubin Negative (NEG) Urine Urobilinogen Dipstick 0.2mg/dL (0.2 mg/dL) Urine Leukocyte Esterase Negative (NEG) Urine RBC Tntc/HPF (0-2) Urine WBC 1-4/HPF (0-4) Urine Squamous Epithelial Cells Mod/LPF Urine Bacteria Few/HPF (0-FEW) Urine Yeast Present/HPF Sodium Level 130mmol/L (136-145) Potassium Level 4.1mmol/L (3.5-5.1) Chloride Level 95mmol/L (98-107) Carbon Dioxide Level 19mmol/L (21-32) Anion Gap 16 (6-14) Blood Urea Nitrogen 11mg/dL (7-20) Creatinine 0.8mg/dL (0.6-1.0) Estimated GFR (Cockcroft-Gault) 86.0 BUN/Creatinine Ratio 14 (6-20) Glucose Level 443mg/dL (70-99) Calcium Level 8.7mg/dL (8.5-10.1) Total Bilirubin 0.4mg/dL (0.2-1.0) Aspartate Amino Transf (AST/SGOT) 40U/L (15-37) Alanine Aminotransferase (ALT/SGPT) 58U/L (14-59) Alkaline Phosphatase 188U/L (46-116) Total Protein 8.2g/dL (6.4-8.2) Albumin 3.9g/dL (3.4-5.0) Albumin/Globulin Ratio 0.9 (1.0-1.7) Glucose (Fingerstick) 248mg/dL (70-99) 191mg/dL (70-99) Test 11/11/16 11:39 11/11/16 16:40 11/11/16 20:39 11/12/16 07:20 Glucose (Fingerstick) 185mg/dL (70-99) 251mg/dL (70-99) 162mg/dL (70-99) 131mg/dL (70-99) Test 11/12/16 11:35 11/12/16 13:47 Glucose (Fingerstick) 117mg/dL (70-99) 94mg/dL (70-99) Laboratory Tests Test 11/11/16 16:40 11/11/16 20:39 11/12/16 07:20 11/12/16 11:35 Glucose (Fingerstick) 251mg/dL (70-99) 162mg/dL (70-99) 131mg/dL (70-99) 117mg/dL (70-99) Test 11/12/16 13:47 Glucose (Fingerstick) 94mg/dL (70-99) Assessment and Plan The patient had no signs of deep infection during surgery. The way the tissues appeared, I believe her most likely diagnosis is frostbite from excessive/ improper usage of an ice pack. She had other red areas on her left arm today when I examined her, and I know she has been using the ice pack proximally as well. I request that she not use the ice packs any longer, and a wound care consult for the burn to her thumb. CELIA MEDINA MD Nov 12, 2016 13:56
--- NOTE | 2016-11-12 14:11 | PDOC ---
PROGRESS NOTES Chief Complaint Chief Complaint Thumb infection, pain ASSESSMENT AND PLAN: 1. Thumb ?gangrene: eval.d in OR by Dr Elias: appears to b guadalupe bite. pt did hit her thumb against bed rail while IV in place during last admit; had hematoma subungually, distal to IV site. treat conservatively 2. Pain regimen: liberalize oxy; dilaudid for breakthrough pain 3. ? infect: mult Abx IV, not needed. d/w Dr Renteria 4. DM: currently under great control (NPO). strict diet post op! 5. Dispo: prob home in AM Vitals Vitals Vital Signs Date Time Temp Pulse Resp B/P Pulse Ox O2 Delivery O2 Flow Rate FiO2 11/12/16 11:55 97.0 93 18 95/54 97 Room Air 97.0 Physical Exam General: Alert, Oriented X3, Cooperative Heart: Regular rate Lungs: Clear Abdomen: Normal bowel sounds Extremities: Other (thumb in gauze. no edema in hand) Skin: No rashes Labs LABS Laboratory Tests Test 11/11/16 16:40 11/11/16 20:39 11/12/16 07:20 11/12/16 11:35 Glucose (Fingerstick) 251mg/dL (70-99) 162mg/dL (70-99) 131mg/dL (70-99) 117mg/dL (70-99) Test 11/12/16 13:47 Glucose (Fingerstick) 94mg/dL (70-99) Review of Systems Review of Systems post op, thumb very painful, no other concerns JEEVAN MOSQUEDA MD Nov 12, 2016 14:11
[2016-11-12] MEDS ORDERED: OXYCODONE IR 5 MG TABLET. PO PRN (15:00)
[2016-11-12] MEDS ORDERED: CEPHALEXIN 250 MG CAPSULE. PO SCH (15:00)
[2016-11-12] MEDS: OXYCODONE IR 5 MG TABLET. PO PRN ×2 (15:56→20:04)
[2016-11-12] MEDS ORDERED: LIDOCAINE 1% / SOD BICARB 8.4% 20 ML VIAL. IJ ONE (16:20)
[2016-11-12] MEDS ORDERED: HEPARIN for ARTERIAL LINE 0 ML ONE (16:21)
[2016-11-12] MEDS ORDERED: VANCOMYCIN 1.5 GM in IV NORMAL SALINE 500ML BAG 500 ML IV SCH (18:00)
[2016-11-12] MEDS: traZODone 100 MG TABLET. PO SCH (21:21)
[2016-11-13] MEDS: OXYCODONE IR 5 MG TABLET. PO PRN ×4 (00:21→20:25)
--- NOTE | 2016-11-13 01:48 | CONS ---
DATE OF CONSULTATION: 11/12/2016 REQUESTING PHYSICIAN: Dr. Pedro. REASON FOR CONSULTATION: Thumb infection. HISTORY OF PRESENT ILLNESS: This is a 25-year-old female with multiple admissions, who was a week ago here, evidently had IV in the thumb she says, and since then she came back with swelling, discoloration and painful left thumb. The patient has no fever. There is no nausea, vomiting, diarrhea. The patient was started on clindamycin and consult has been requested. The patient denies any other complaints. The patient denies any other trauma. PAST MEDICAL HISTORY: Positive for multiple admissions. The patient is a diabetic, noncompliance, hyperlipidemia, neuropathy. PAST SURGICAL HISTORY: Has had appendicectomy, cholecystectomy, hernia repair done, and hysterectomy. SOCIAL HISTORY: Negative for smoking, alcohol, or illicit drug use. ALLERGIES: LISTED ALLERGIC TO PENICILLIN, QUESTIONABLE ANAPHYLAXIS SHE WAS 1 YEARS OLD. DOXYCYCLINE, SHE DOES NOT REMEMBER, BUT MAY BE RASH SHE SAYS. REVIEW OF SYSTEMS: As per HPI, all other systems reviewed are negative. CURRENT MEDICATIONS: Reviewed. The patient is on clindamycin. PHYSICAL EXAMINATION: GENERAL: Alert, oriented female, not in distress. VITAL SIGNS: Stable, afebrile. HEENT: NAD. NECK: Supple, no JVP, no lymphadenopathy. LUNGS: Clear. HEART: S1, S2 regular. ABDOMEN: Benign. EXTREMITIES: No edema, cyanosis. SKIN: Unremarkable except left thumb is swollen. There is nail discoloration with subungual hematoma and on the dorsal aspect of the thumb there is discoloration of the skin as well as swelling. On the palmar surface there is swelling and tenderness. NEUROLOGIC: The patient otherwise is all ____ and neurologically intact. LABORATORY DATA: White count is normal. BUN and creatinine is normal. Urinalysis showed too numerous to count RBC. X-ray was unremarkable for any fracture. IMPRESSION: 1. Left thumb discoloration, swelling and pain. It looks like there is a blunt trauma forced to the thumb as discoloration of nail would not be from IV site, but discoloration of the skin proximal to the thumb may have been IV related, again, it is not very clear. 2. Diabetes. 3. Hyperlipidemia. 4. Multiple admissions and noncompliance. RECOMMENDATIONS: Recommend change clindamycin to vancomycin and cefepime. Supportive care. I and D has been planned for today. Please take the cultures and we will continue to follow. Thank you very much, Dr. Pedro for giving me the opportunity to participate in this patient's care. YUSRA FERRER MD DR: DALE/ric JOB#: [id number] / [id number]
[2016-11-13] MEDS: HYDROMORPHONE 2 MG/ML VIAL. IV PRN ×6 (02:18→22:43)
[2016-11-13 02:34] VITALS: BP 129/80
[2016-11-13 07:00] VITALS: BP 133/79
[2016-11-13] MEDS: GABAPENTIN 300 MG CAPSULE. PO SCH ×3 (08:10→20:26)
[2016-11-13] MEDS: INSULIN ASPART 300 UNITS/3 ML INSULN.PEN SQ SCH ×6 (08:17→17:00)
[2016-11-13] MEDS: INSULIN DETEMIR 300 UNITS/3 ML INSULN.PEN. SQ SCH ×2 (08:18→22:50)
--- NOTE | 2016-11-13 10:14 | PDOC ---
Infectious Disease Note Subjective Subjective had I and D, no infection found ROS ROS GEN: Denies fevers, chills, sweats HEENT: Denies blurred vision, sore throat CV: Denies chest pain RESP: Denies shortness of air, cough GI: Denies n/v/d NEURO: Denies confusion, dizziness MSK: Denies weakness, joint pain/swelling Vital Sign Vital Signs Vital Signs Date Time Temp Pulse Resp B/P Pulse Ox O2 Delivery O2 Flow Rate FiO2 11/13/16 09:56 16 Room Air 11/13/16 07:00 97.8 91 133/79 98 97.8 11/12/16 14:57 2 Physical Exam PHYSICAL EXAM GENERAL: NAD, Alert HEENT: PERRL, OC/OP NECK: Supple, no JVD, no LN LUNGS: Clear HEART: S1S2, no gallop, no murmur ABD: Soft, NT, no organomegaly, no rebound EXT: No edema, no cyanosis, thumb dressing not opened 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 previous iv site DM Multiple admissions Plan Plan of Care off antibiotics check cultures d/w dr Dang yesterday YUSRA FERRER MD Nov 13, 2016 10:14
[2016-11-13 11:00] VITALS: BP 96/54
[2016-11-13 11:21] LABS: BASO % 0 % (0-3); EOS % 2 % (0-3); HEMATOCRIT 30.9 % (36.0-47.0); HEMOGLOBIN 9.8 g/dL (12.0-15.5); LYMPH # 1.9 x10^3/uL (1.0-4.8); LYMPH % 34 % (24-48); MEAN CORPUSCULAR HEMOGLOBIN 25 pg (25-35); MEAN CORPUSCULAR HGB CONC 32 g/dL (31-37); MEAN CORPUSCULAR VOLUME 77 fL (79-100); MONO % 6 % (0-9); NEUT % 57 % (31-73); PLATELET COUNT 262 x10^3/uL (140-400); RED BLOOD COUNT 4.02 x10^6/uL (3.50-5.40); RED CELL DISTRIBUTION WIDTH 16.9 % (11.5-14.5); WHITE BLOOD COUNT 5.7 x10^3/uL (4.0-11.0)
[2016-11-13 11:32] LABS: CALCIUM 8.9 mg/dL (8.5-10.1); CREATININE 0.7 mg/dL (0.6-1.0); GFR 100.4; POTASSIUM 3.9 mmol/L (3.5-5.1)
--- NOTE | 2016-11-13 12:58 | PDOC ---
PROGRESS NOTES Chief Complaint Chief Complaint Thumb cellulitis, pain ? gangrene with subungal hematoma Noncompliance diabetes type I hyperlipidemia, ovarian cyst, chronic pain, ventral hernia History of Present Illness History of Present Illness Patient seen and evaluated at bedside. POD #1 s/p I&D. Patient is somewhat tearful, c/o pain to her thumb. Otherwise, resting comfortably. d/w nurse. Vitals Vitals Vital Signs Date Time Temp Pulse Resp B/P Pulse Ox O2 Delivery O2 Flow Rate FiO2 11/13/16 11:32 16 11/13/16 11:02 Room Air 11/13/16 11:00 97.6 93 96/54 96 97.6 11/12/16 14:57 2 Physical Exam General: Alert, Oriented X3, Cooperative, mild distress Heart: Regular rate, Normal S1 Lungs: Clear, Other (negative chest retractions. ) Abdomen: Normal bowel sounds, Soft, No tenderness Extremities: No edema, Other (thumb in gauze; clean, dry, and intact. no edema in hand) Skin: No rashes Labs LABS Laboratory Tests Test 11/12/16 13:47 11/12/16 16:09 11/12/16 21:18 11/13/16 07:30 Glucose (Fingerstick) 94mg/dL (70-99) 161mg/dL (70-99) 332mg/dL (70-99) 292mg/dL (70-99) Test 11/13/16 10:35 11/13/16 11:38 White Blood Count 5.7x10^3/uL (4.0-11.0) Red Blood Count 4.02x10^6/uL (3.50-5.40) Hemoglobin 9.8g/dL (12.0-15.5) Hematocrit 30.9% (36.0-47.0) Mean Corpuscular Volume 77fL (79-100) Mean Corpuscular Hemoglobin 25pg (25-35) Mean Corpuscular Hemoglobin Concent 32g/dL (31-37) Red Cell Distribution Width 16.9% (11.5-14.5) Platelet Count 262x10^3/uL (140-400) Neutrophils (%) (Auto) 57% (31-73) Lymphocytes (%) (Auto) 34% (24-48) Monocytes (%) (Auto) 6% (0-9) Eosinophils (%) (Auto) 2% (0-3) Basophils (%) (Auto) 0% (0-3) Neutrophils # (Auto) 3.3x10^3uL (1.8-7.7) Lymphocytes # (Auto) 1.9x10^3/uL (1.0-4.8) Monocytes # (Auto) 0.4x10^3/uL (0.0-1.1) Eosinophils # (Auto) 0.1x10^3/uL (0.0-0.7) Basophils # (Auto) 0.0x10^3/uL (0.0-0.2) Sodium Level 137mmol/L (136-145) Potassium Level 3.9mmol/L (3.5-5.1) Chloride Level 102mmol/L (98-107) Carbon Dioxide Level 24mmol/L (21-32) Anion Gap 11 (6-14) Blood Urea Nitrogen 12mg/dL (7-20) Creatinine 0.7mg/dL (0.6-1.0) Estimated GFR (Cockcroft-Gault) 100.4 Glucose Level 311mg/dL (70-99) Calcium Level 8.9mg/dL (8.5-10.1) Glucose (Fingerstick) 223mg/dL (70-99) Review of Systems Review of Systems (+) L thumb pain Denies chest pain, sob, abdominal pain, n/v/d, or fever/chills. Assessment and Plan Assessmemt and Plan Problems Medical Problems: (1) Cellulitis Status: Acute (2) Elevated blood sugar Status: Acute (3) Inadequate pain control Status: Acute (4) Uncontrolled diabetes mellitus Status: Acute ASSESSMENT 1. Thumb pain, ?gangrene vs. cellulitis vs. traumatic injury vs. frostbite 2. L subungal hematoma s/p I&D and nail removal POD #1 3. Diabetes mellitus Plan: 1.) d/c abx, per ID. cx negative for gram stain 2.) continue pain regimen 3.) SSI with glucose checks. ADA diet 4.) continue wound care 5.) discharge to home if agreeable with subspecialist. f/u with wound care and pcp. Problems: Comment Review of Relevant I have reviewed the following items lizbeth (where applicable) has been applied. Labs Laboratory Tests Test 11/11/16 16:40 11/11/16 20:39 11/12/16 07:20 11/12/16 11:35 Glucose (Fingerstick) 251mg/dL (70-99) 162mg/dL (70-99) 131mg/dL (70-99) 117mg/dL (70-99) Test 11/12/16 13:47 11/12/16 16:09 11/12/16 21:18 11/13/16 07:30 Glucose (Fingerstick) 94mg/dL (70-99) 161mg/dL (70-99) 332mg/dL (70-99) 292mg/dL (70-99) Test 11/13/16 10:35 11/13/16 11:38 White Blood Count 5.7x10^3/uL (4.0-11.0) Red Blood Count 4.02x10^6/uL (3.50-5.40) Hemoglobin 9.8g/dL (12.0-15.5) Hematocrit 30.9% (36.0-47.0) Mean Corpuscular Volume 77fL (79-100) Mean Corpuscular Hemoglobin 25pg (25-35) Mean Corpuscular Hemoglobin Concent 32g/dL (31-37) Red Cell Distribution Width 16.9% (11.5-14.5) Platelet Count 262x10^3/uL (140-400) Neutrophils (%) (Auto) 57% (31-73) Lymphocytes (%) (Auto) 34% (24-48) Monocytes (%) (Auto) 6% (0-9) Eosinophils (%) (Auto) 2% (0-3) Basophils (%) (Auto) 0% (0-3) Neutrophils # (Auto) 3.3x10^3uL (1.8-7.7) Lymphocytes # (Auto) 1.9x10^3/uL (1.0-4.8) Monocytes # (Auto) 0.4x10^3/uL (0.0-1.1) Eosinophils # (Auto) 0.1x10^3/uL (0.0-0.7) Basophils # (Auto) 0.0x10^3/uL (0.0-0.2) Sodium Level 137mmol/L (136-145) Potassium Level 3.9mmol/L (3.5-5.1) Chloride Level 102mmol/L (98-107) Carbon Dioxide Level 24mmol/L (21-32) Anion Gap 11 (6-14) Blood Urea Nitrogen 12mg/dL (7-20) Creatinine 0.7mg/dL (0.6-1.0) Estimated GFR (Cockcroft-Gault) 100.4 Glucose Level 311mg/dL (70-99) Calcium Level 8.9mg/dL (8.5-10.1) Glucose (Fingerstick) 223mg/dL (70-99) Laboratory Tests Test 11/12/16 13:47 11/12/16 16:09 11/12/16 21:18 11/13/16 07:30 Glucose (Fingerstick) 94mg/dL (70-99) 161mg/dL (70-99) 332mg/dL (70-99) 292mg/dL (70-99) Test 11/13/16 10:35 11/13/16 11:38 White Blood Count 5.7x10^3/uL (4.0-11.0) Red Blood Count 4.02x10^6/uL (3.50-5.40) Hemoglobin 9.8g/dL (12.0-15.5) Hematocrit 30.9% (36.0-47.0) Mean Corpuscular Volume 77fL (79-100) Mean Corpuscular Hemoglobin 25pg (25-35) Mean Corpuscular Hemoglobin Concent 32g/dL (31-37) Red Cell Distribution Width 16.9% (11.5-14.5) Platelet Count 262x10^3/uL (140-400) Neutrophils (%) (Auto) 57% (31-73) Lymphocytes (%) (Auto) 34% (24-48) Monocytes (%) (Auto) 6% (0-9) Eosinophils (%) (Auto) 2% (0-3) Basophils (%) (Auto) 0% (0-3) Neutrophils # (Auto) 3.3x10^3uL (1.8-7.7) Lymphocytes # (Auto) 1.9x10^3/uL (1.0-4.8) Monocytes # (Auto) 0.4x10^3/uL (0.0-1.1) Eosinophils # (Auto) 0.1x10^3/uL (0.0-0.7) Basophils # (Auto) 0.0x10^3/uL (0.0-0.2) Sodium Level 137mmol/L (136-145) Potassium Level 3.9mmol/L (3.5-5.1) Chloride Level 102mmol/L (98-107) Carbon Dioxide Level 24mmol/L (21-32) Anion Gap 11 (6-14) Blood Urea Nitrogen 12mg/dL (7-20) Creatinine 0.7mg/dL (0.6-1.0) Estimated GFR (Cockcroft-Gault) 100.4 Glucose Level 311mg/dL (70-99) Calcium Level 8.9mg/dL (8.5-10.1) Glucose (Fingerstick) 223mg/dL (70-99) Microbiology 11/12/16 Gram Stain - Final, Complete Medications Current Medications Sodium Chloride 1,000 ml @ 1,000 mls/hr Q1H IV Last administered on 11/11/16 00:26; Start 11/10/16 at 23:00; Stop 11/10/16 at 23:59; Status DC Vancomycin HCl 1.5 gm/Sodium Chloride 500 ml @ 250 mls/hr 1X ONCE IV Last administered on 11/11/16 00:27; Start 11/10/16 at 23:00; Stop 11/11/16 at 00:59 ; Status DC Clindamycin Phosphate (Cleocin 600 Mg Premix) 50 ml @ 100 mls/hr Q8HRS IV Last administered on 11/12/16 05:50; Start 11/11/16 at 06:00; Stop 11/12/16 at 08:42; Status DC Hydromorphone HCl (Dilaudid) 1 mg 1X ONCE IV Last administered on 11/11/16 00 :51; Start 11/11/16 at 00:45; Stop 11/11/16 at 00:46; Status DC Ondansetron HCl (Zofran) 4 mg 1X ONCE IV Last administered on 11/11/16 00:51 ; Start 11/11/16 at 00:45; Stop 11/11/16 at 00:46; Status DC Ondansetron HCl 4 mg 4 mg PRN Q8HRS PRN IV NAUSEA/VOMITING Last administered on 11/11/16 07:31; Start 11/11/16 at 01:00; Stop 11/11/16 at 12:47; Status DC Sodium Chloride (Iv Sodium Chloride 0.9% 1000ml Bag) 1,000 ml @ 125 mls/hr Q8H IV Last administered on 11/11/16 17:39; Start 11/11/16 at 01:00; Stop at 00:59; Status DC Acetaminophen (Tylenol) 650 mg PRN Q4HRS PRN PO FEVER; Start 11/11/16 at 01:00 ; Stop 11/12/16 at 00:59; Status DC Insulin Aspart (Novolog) 0-5 UNITS TIDWMEALS SQ Last administered on 11/13/16 12:34; Start 11/11/16 at 08:00 Hydromorphone HCl (Dilaudid) 0.5 mg PRN Q6HRS PRN IV PAIN Last administered on 11/11/16 13:33; Start 11/11/16 at 01:00; Stop 11/11/16 at 14:09; Status DC Dextrose (Dextrose 50%-Water Syringe) 12.5 gm PRN Q15MIN PRN IV SEE COMMENTS; Start 11/11/16 at 02:00 Dextrose (Dextrose 50%-Water Syringe) 12.5 gm PRN Q15MIN PRN IV SEE COMMENTS; Start 11/11/16 at 02:00; Status UNV Ondansetron HCl (Zofran) 4 mg PRN Q4HRS PRN IV NAUSEA/VOMITING Last administered on 11/12/16 09:40; Start 11/11/16 at 12:45; Stop 11/12/16 at 14:02 ; Status DC Hydromorphone HCl (Dilaudid) 0.5 mg PRN Q4HRS PRN IV PAIN Last administered on 11/12/16 09:40; Start 11/11/16 at 14:30; Stop 11/12/16 at 15:00; Status DC Diazepam (Valium) 5 mg PRN Q8HRS PRN PO ANXIETY; Start 11/11/16 at 15:00 Insulin Aspart (Novolog) 45 units TIDAC SQ Last administered on 11/13/16 12:33 ; Start 11/11/16 at 16:30 Insulin Detemir (Levemir) 85 units BID SQ Last administered on 11/13/16 08:18 ; Start 11/11/16 at 21:00 Oxycodone HCl (Roxicodone) 5 mg PRN Q6HRS PRN PO SEVERE PAIN; Start 11/11/16 at 15:00; Stop 11/12/16 at 14:02; Status DC Trimethoprim/ Sulfamethoxazole (Bactrim Ds) 1 tab BID PO ; Start 11/11/16 at 21: 00; Stop 11/11/16 at 21:00; Status DC Tramadol HCl (Ultram) 50 mg PRN Q6HRS PRN PO PAIN; Start 11/11/16 at 15:00 Trazodone HCl (Desyrel) 100 mg QHS PO Last administered on 11/12/16 21:21; Start 11/11/16 at 21:00 Gabapentin (Neurontin) 600 mg TID PO Last administered on 11/13/16 08:10; Start 11/11/16 at 15:30 Ondansetron HCl (Zofran) 4 mg PRN Q6HRS PRN IV NAUSEA/VOMITING Last administered on 11/12/16 17:02; Start 11/12/16 at 08:00; Stop 11/12/16 at 18:00 ; Status DC Morphine Sulfate 1 mg 1 mg PRN Q10MIN PRN IV SEVERE PAIN (Second Choice); Start 11/12/16 at 08:00; Stop 11/12/16 at 14:02; Status DC Lactated Ringer's (Iv Lactated Ringers) 1,000 ml @ 30 mls/hr Q24H IV ; Start at 07:58; Stop 11/12/16 at 15:27; Status DC Lidocaine HCl 2 ml PRN 1X PRN ID PRIOR TO IV START; Start 11/12/16 at 08:00; Stop 11/12/16 at 18:00; Status DC Hydromorphone HCl (Dilaudid) 0.5 mg PRN Q10MIN PRN IV SEV PAIN, Second choice; Start 11/12/16 at 08:00; Stop 11/12/16 at 14:02; Status DC Prochlorperazine Edisylate 5 mg 5 mg PACU PRN PRN IV NAUSEA, MRX1; Start at 08:00; Stop 11/12/16 at 18:00; Status DC Cefepime HCl/ Sodium Chloride (Maxipime/Iv Sodium Chloride 0.9% 50ml) 50 ml @ 100 mls/hr Q8HRS IV Last administered on 11/12/16 09:39; Start 11/12/16 at 09: 00; Stop 11/12/16 at 14:05; Status DC Vancomycin HCl 1 each 1 each PRN DAILY PRN MC SEE COMMENTS Last administered on 11/12/16 10:08; Start 11/12/16 at 08:45; Stop 11/13/16 at 10:22; Status DC Vancomycin HCl 2 gm/Sodium Chloride 500 ml @ 250 mls/hr 1X ONCE IV Last administered on 11/12/16 09:39; Start 11/12/16 at 10:00; Stop 11/12/16 at 11:59 ; Status DC Vancomycin HCl/ Sodium Chloride (Iv Sodium Chloride 0.9% 500ml Bag) 500 ml @ 250 mls/hr Q8H IV ; Start 11/12/16 at 18:00; Stop 11/12/16 at 18:00; Status DC Vancomycin HCl 1 each 1X ONCE MC Last administered on 11/12/16 13:10; Start 11/13/16 at 09:30; Stop 11/13/16 at 09:31; Status DC Fentanyl Citrate (Fentanyl 2ml Vial) 100 mcg STK-MED ONCE .ROUTE ; Start at 11:45; Stop 11/12/16 at 11:46; Status DC Desflurane (Suprane) 30 ml STK-MED ONCE IH ; Start 11/12/16 at 11:45; Stop 11/12 at 11:46; Status DC Lidocaine HCl 100 mg 100 mg STK-MED ONCE .ROUTE ; Start 11/12/16 at 11:45; Stop 11/12/16 at 11:46; Status DC Propofol (Diprivan) 20 ml @ As Directed STK-MED ONCE IV ; Start 11/12/16 at 11: 45; Stop 11/12/16 at 11:46; Status DC Dexamethasone Sodium Phosphate (Decadron) 20 mg STK-MED ONCE .ROUTE ; Start at 11:45; Stop 11/12/16 at 11:46; Status DC Ondansetron HCl (Zofran) 4 mg STK-MED ONCE .ROUTE ; Start 11/12/16 at 11:45; Stop 11/12/16 at 11:46; Status DC Bupivacaine HCl/ Epinephrine Bitart (Sensorcaine-Epi 0.25%-1:[id number] Mpf) 30 ml STK-MED ONCE .ROUTE ; Start 11/12/16 at 12:49; Stop 11/12/16 at 12:50; Status DC Bupivacaine HCl (Sensorcaine Mpf 0.25%) 30 ml STK-MED ONCE .ROUTE ; Start at 12:49; Stop 11/12/16 at 12:50; Status DC Morphine Sulfate 10 mg STK-MED ONCE .ROUTE ; Start 11/12/16 at 13:14; Stop 11/12 at 13:15; Status DC Oxycodone HCl (Roxicodone) 5 mg PRN Q4HRS PRN PO SEVERE PAIN; Start 11/12/16 at 15:00 Cephalexin HCl (Keflex) 500 mg TID PO ; Start 11/12/16 at 15:00; Stop 11/12/16 at 15:00; Status DC Oxycodone HCl (Roxicodone) 10 mg PRN Q4HRS PRN PO SEVERE PAIN Last administered on 11/13/16 09:56; Start 11/12/16 at 14:15 Hydromorphone HCl (Dilaudid) 0.5 mg PRN Q10MIN PRN IV SEV PAIN, Second choice Last administered on 11/12/16 14:46; Start 11/12/16 at 14:30; Stop 11/12/16 at 16:00; Status DC Hydromorphone HCl (Dilaudid) 0.3 mg PRN Q4HRS PRN IV PAIN Last administered on 11/13/16 11:02; Start 11/12/16 at 15:00 Bupivacaine HCl/ Epinephrine Bitart (Sensorcaine-Epi 0.25%-1:305484 Mpf) 30 ml STK-MED ONCE .ROUTE ; Start 11/12/16 at 15:18; Stop 11/12/16 at 15:19; Status DC Bupivacaine HCl (Sensorcaine Mpf 0.25%) 30 ml STK-MED ONCE .ROUTE ; Start at 15:18; Stop 11/12/16 at 15:19; Status DC Lidocaine/Sodium Bicarbonate 20 ml 20 ml STK-MED ONCE IJ ; Start 11/12/16 at 16: 20; Stop 11/12/16 at 16:21; Status DC Heparin Sodium/ Sodium Chloride 0 ml @ As Directed STK-MED ONCE .ROUTE ; Start 11/12/16 at 16:21; Stop 11/12/16 at 16:22; Status DC Active Scripts Active Sulfamethoxazole-Tmp Ds Tablet (Sulfamethoxazole/Trimethoprim) 1 Each Tablet 1 Tab PO BID 7 Days Oxycodone Hcl 5 Mg Tablet 5 Mg PO PRN Q6HRS PRN Levemir Flextouch (Insulin Detemir) 100 Unit/1 Ml Insuln.pen 85 Units SQ BID 30 Days Novolog Flexpen (Insulin Aspart) 100 Unit/1 Ml Insuln.pen 45 Units SQ TIDAC 30 Days Ultram (Tramadol Hcl) 50 Mg Tablet 50 Mg PO Q6H PRN Reported Trazodone Hcl 100 Mg Tablet 1 Tab PO QHS Valium (Diazepam) 5 Mg Tablet 5 Mg PO PRN Q8HRS PRN Gabapentin 600 Mg Tablet 600 Mg PO TID Vitals/I & O Vital Sign - Last 24 Hours 11/12/16 11/12/16 11/12/16 11/12/16 13:42 13:42 13:57 14:10 Temp 97.3 97.3 Pulse 105 104 Resp 16 18 B/P 129/81 141/80 Pulse Ox 98 99 O2 Delivery Simple Mask Mask Simple Mask Nasal Cannula O2 Flow Rate 10 10 10 3 11/12/16 11/12/16 11/12/16 11/12/16 14:12 14:27 14:31 14:42 Pulse 104 104 102 Resp 18 18 18 B/P 143/81 123/71 129/72 Pulse Ox 96 96 96 97 O2 Delivery Nasal Cannula Nasal Cannula Nasal Cannula Nasal Cannula O2 Flow Rate 3 3 3.0 2 11/12/16 11/12/16 11/12/16 11/12/16 14:46 14:57 15:45 15:56 Temp 98.2 97.9 98.2 97.9 Pulse 104 108 Resp 18 18 20 B/P 121/65 133/72 Pulse Ox 97 96 93 O2 Delivery Nasal Cannula Nasal Cannula Room Air Room Air O2 Flow Rate 3.0 2 11/12/16 11/12/16 11/12/16 11/12/16 16:00 16:15 16:30 17:03 Temp 97.8 97.8 Pulse 105 107 111 Resp 20 20 20 B/P 129/69 124/67 120/102 Pulse Ox 93 90 91 O2 Delivery Room Air Room Air Room Air Room Air 11/12/16 11/12/16 11/12/16 11/12/16 19:20 20:04 20:05 22:06 Temp 98.0 98.0 Pulse 108 Resp 18 18 18 B/P 128/76 Pulse Ox 96 O2 Delivery Room Air Room Air Room Air Room Air 11/12/16 11/13/16 11/13/16 11/13/16 23:34 00:21 02:18 02:34 Temp 98.3 98.3 98.3 98.3 Pulse 100 99 Resp 18 18 18 18 B/P 131/72 129/80 Pulse Ox 94 97 O2 Delivery Room Air Room Air Room Air Room Air 11/13/16 11/13/16 11/13/16 11/13/16 07:00 07:12 07:42 08:00 Temp 97.8 97.8 Pulse 91 Resp 20 18 B/P 133/79 Pulse Ox 98 O2 Delivery Room Air Room Air Room Air Room Air 11/13/16 11/13/16 11/13/16 11/13/16 09:56 10:56 11:00 11:02 Temp 97.6 97.6 Pulse 93 Resp 16 20 18 B/P 96/54 Pulse Ox 96 O2 Delivery Room Air Room Air Room Air Room Air 11/13/16 11:32 Resp 16 Intake and Output 11/12/16 11/12/16 11/13/16 14:59 22:59 06:59 Intake Total 180 ml 960 ml Output Total 5 ml Balance 175 ml 960 ml MATTNIAL K III DO Nov 13, 2016 12:58
[2016-11-13 15:00] VITALS: BP 106/59
[2016-11-13 19:15] VITALS: BP 121/65
--- NOTE | 2016-11-13 20:17 | PDOC ---
PROGRESS NOTES Subjective Subjective Problems overnight:no acute issues. gram stain negative for infection. the patient states her pain is still present but improved since the nail was removed. Her dressing was removed earlier, and the xeroform that was placed on her nail bed was removed keeping the nail bed open. It will need to be replaced prior to dc. Objective Vital Signs Vital Signs Date Time Temp Pulse Resp B/P Pulse Ox O2 Delivery O2 Flow Rate FiO2 11/13/16 19:18 18 11/13/16 18:48 Room Air 11/13/16 15:00 97.5 103 106/59 98 97.5 11/12/16 14:57 2 Physical Exam L hand: new dressing, coban over the hand in place, cdi. no warmth or swelling in the distal forearm. Labs Laboratory Tests Test 11/11/16 20:39 11/12/16 07:20 11/12/16 11:35 11/12/16 13:47 Glucose (Fingerstick) 162mg/dL (70-99) 131mg/dL (70-99) 117mg/dL (70-99) 94mg/dL (70-99) Test 11/12/16 16:09 11/12/16 21:18 11/13/16 07:30 11/13/16 10:35 Glucose (Fingerstick) 161mg/dL (70-99) 332mg/dL (70-99) 292mg/dL (70-99) White Blood Count 5.7x10^3/uL (4.0-11.0) Red Blood Count 4.02x10^6/uL (3.50-5.40) Hemoglobin 9.8g/dL (12.0-15.5) Hematocrit 30.9% (36.0-47.0) Mean Corpuscular Volume 77fL (79-100) Mean Corpuscular Hemoglobin 25pg (25-35) Mean Corpuscular Hemoglobin Concent 32g/dL (31-37) Red Cell Distribution Width 16.9% (11.5-14.5) Platelet Count 262x10^3/uL (140-400) Neutrophils (%) (Auto) 57% (31-73) Lymphocytes (%) (Auto) 34% (24-48) Monocytes (%) (Auto) 6% (0-9) Eosinophils (%) (Auto) 2% (0-3) Basophils (%) (Auto) 0% (0-3) Neutrophils # (Auto) 3.3x10^3uL (1.8-7.7) Lymphocytes # (Auto) 1.9x10^3/uL (1.0-4.8) Monocytes # (Auto) 0.4x10^3/uL (0.0-1.1) Eosinophils # (Auto) 0.1x10^3/uL (0.0-0.7) Basophils # (Auto) 0.0x10^3/uL (0.0-0.2) Sodium Level 137mmol/L (136-145) Potassium Level 3.9mmol/L (3.5-5.1) Chloride Level 102mmol/L (98-107) Carbon Dioxide Level 24mmol/L (21-32) Anion Gap 11 (6-14) Blood Urea Nitrogen 12mg/dL (7-20) Creatinine 0.7mg/dL (0.6-1.0) Estimated GFR (Cockcroft-Gault) 100.4 Glucose Level 311mg/dL (70-99) Calcium Level 8.9mg/dL (8.5-10.1) Test 11/13/16 11:38 11/13/16 17:01 11/13/16 17:55 Glucose (Fingerstick) 223mg/dL (70-99) 61mg/dL (70-99) 122mg/dL (70-99) Laboratory Tests Test 11/12/16 21:18 11/13/16 07:30 11/13/16 10:35 11/13/16 11:38 Glucose (Fingerstick) 332mg/dL (70-99) 292mg/dL (70-99) 223mg/dL (70-99) White Blood Count 5.7x10^3/uL (4.0-11.0) Red Blood Count 4.02x10^6/uL (3.50-5.40) Hemoglobin 9.8g/dL (12.0-15.5) Hematocrit 30.9% (36.0-47.0) Mean Corpuscular Volume 77fL (79-100) Mean Corpuscular Hemoglobin 25pg (25-35) Mean Corpuscular Hemoglobin Concent 32g/dL (31-37) Red Cell Distribution Width 16.9% (11.5-14.5) Platelet Count 262x10^3/uL (140-400) Neutrophils (%) (Auto) 57% (31-73) Lymphocytes (%) (Auto) 34% (24-48) Monocytes (%) (Auto) 6% (0-9) Eosinophils (%) (Auto) 2% (0-3) Basophils (%) (Auto) 0% (0-3) Neutrophils # (Auto) 3.3x10^3uL (1.8-7.7) Lymphocytes # (Auto) 1.9x10^3/uL (1.0-4.8) Monocytes # (Auto) 0.4x10^3/uL (0.0-1.1) Eosinophils # (Auto) 0.1x10^3/uL (0.0-0.7) Basophils # (Auto) 0.0x10^3/uL (0.0-0.2) Sodium Level 137mmol/L (136-145) Potassium Level 3.9mmol/L (3.5-5.1) Chloride Level 102mmol/L (98-107) Carbon Dioxide Level 24mmol/L (21-32) Anion Gap 11 (6-14) Blood Urea Nitrogen 12mg/dL (7-20) Creatinine 0.7mg/dL (0.6-1.0) Estimated GFR (Cockcroft-Gault) 100.4 Glucose Level 311mg/dL (70-99) Calcium Level 8.9mg/dL (8.5-10.1) Test 11/13/16 17:01 11/13/16 17:55 Glucose (Fingerstick) 61mg/dL (70-99) 122mg/dL (70-99) Assessment Assessment POD# 1 S/P I&D left thumb, nail removal Problems: (1) Pain of left thumb Plan Plan of Care The patient will need something placed over her nail bed again to keep the lunula open. I will need some instruments from the OR to do so and will do this in the am. pain control follow up with me or pcp for suture removal in 7-10 days. CELIA MEDINA MD Nov 13, 2016 20:17
[2016-11-13] MEDS: traZODone 100 MG TABLET. PO SCH (22:41)
[2016-11-13 23:00] VITALS: BP 122/71
[2016-11-14] MEDS: OXYCODONE IR 5 MG TABLET. PO PRN ×2 (00:51→15:01)
[2016-11-14] MEDS: HYDROMORPHONE 2 MG/ML VIAL. IV PRN ×3 (03:07→12:45)
[2016-11-14 03:17] VITALS: BP 124/66
[2016-11-14 07:00] VITALS: BP 105/54
--- NOTE | 2016-11-14 07:52 | PDOC ---
PROGRESS NOTES Subjective Subjective Problems overnight: Objective Vital Signs Vital Signs Date Time Temp Pulse Resp B/P Pulse Ox O2 Delivery O2 Flow Rate FiO2 11/14/16 04:42 18 Room Air 11/14/16 03:17 98.1 97 124/66 97 98.1 11/12/16 14:57 2 Labs Laboratory Tests Test 11/12/16 11:35 11/12/16 13:47 11/12/16 16:09 11/12/16 21:18 Glucose (Fingerstick) 117mg/dL (70-99) 94mg/dL (70-99) 161mg/dL (70-99) 332mg/dL (70-99) Test 11/13/16 07:30 11/13/16 10:35 11/13/16 11:38 11/13/16 17:01 Glucose (Fingerstick) 292mg/dL (70-99) 223mg/dL (70-99) 61mg/dL (70-99) White Blood Count 5.7x10^3/uL (4.0-11.0) Red Blood Count 4.02x10^6/uL (3.50-5.40) Hemoglobin 9.8g/dL (12.0-15.5) Hematocrit 30.9% (36.0-47.0) Mean Corpuscular Volume 77fL (79-100) Mean Corpuscular Hemoglobin 25pg (25-35) Mean Corpuscular Hemoglobin Concent 32g/dL (31-37) Red Cell Distribution Width 16.9% (11.5-14.5) Platelet Count 262x10^3/uL (140-400) Neutrophils (%) (Auto) 57% (31-73) Lymphocytes (%) (Auto) 34% (24-48) Monocytes (%) (Auto) 6% (0-9) Eosinophils (%) (Auto) 2% (0-3) Basophils (%) (Auto) 0% (0-3) Neutrophils # (Auto) 3.3x10^3uL (1.8-7.7) Lymphocytes # (Auto) 1.9x10^3/uL (1.0-4.8) Monocytes # (Auto) 0.4x10^3/uL (0.0-1.1) Eosinophils # (Auto) 0.1x10^3/uL (0.0-0.7) Basophils # (Auto) 0.0x10^3/uL (0.0-0.2) Sodium Level 137mmol/L (136-145) Potassium Level 3.9mmol/L (3.5-5.1) Chloride Level 102mmol/L (98-107) Carbon Dioxide Level 24mmol/L (21-32) Anion Gap 11 (6-14) Blood Urea Nitrogen 12mg/dL (7-20) Creatinine 0.7mg/dL (0.6-1.0) Estimated GFR (Cockcroft-Gault) 100.4 Glucose Level 311mg/dL (70-99) Calcium Level 8.9mg/dL (8.5-10.1) Test 11/13/16 17:55 11/13/16 21:43 11/14/16 07:35 Glucose (Fingerstick) 122mg/dL (70-99) 219mg/dL (70-99) 337mg/dL (70-99) Laboratory Tests Test 11/13/16 10:35 11/13/16 11:38 11/13/16 17:01 11/13/16 17:55 White Blood Count 5.7x10^3/uL (4.0-11.0) Red Blood Count 4.02x10^6/uL (3.50-5.40) Hemoglobin 9.8g/dL (12.0-15.5) Hematocrit 30.9% (36.0-47.0) Mean Corpuscular Volume 77fL (79-100) Mean Corpuscular Hemoglobin 25pg (25-35) Mean Corpuscular Hemoglobin Concent 32g/dL (31-37) Red Cell Distribution Width 16.9% (11.5-14.5) Platelet Count 262x10^3/uL (140-400) Neutrophils (%) (Auto) 57% (31-73) Lymphocytes (%) (Auto) 34% (24-48) Monocytes (%) (Auto) 6% (0-9) Eosinophils (%) (Auto) 2% (0-3) Basophils (%) (Auto) 0% (0-3) Neutrophils # (Auto) 3.3x10^3uL (1.8-7.7) Lymphocytes # (Auto) 1.9x10^3/uL (1.0-4.8) Monocytes # (Auto) 0.4x10^3/uL (0.0-1.1) Eosinophils # (Auto) 0.1x10^3/uL (0.0-0.7) Basophils # (Auto) 0.0x10^3/uL (0.0-0.2) Sodium Level 137mmol/L (136-145) Potassium Level 3.9mmol/L (3.5-5.1) Chloride Level 102mmol/L (98-107) Carbon Dioxide Level 24mmol/L (21-32) Anion Gap 11 (6-14) Blood Urea Nitrogen 12mg/dL (7-20) Creatinine 0.7mg/dL (0.6-1.0) Estimated GFR (Cockcroft-Gault) 100.4 Glucose Level 311mg/dL (70-99) Calcium Level 8.9mg/dL (8.5-10.1) Glucose (Fingerstick) 223mg/dL (70-99) 61mg/dL (70-99) 122mg/dL (70-99) Test 11/13/16 21:43 11/14/16 07:35 Glucose (Fingerstick) 219mg/dL (70-99) 337mg/dL (70-99) Assessment Assessment POD# [], S/P [] Problems: Plan Plan of Care The patient could not tolerate having anything placed underneath her lunula today. I am hopeful that her nail bed will remain patent regardless. incision is cdi. no signs of infection on exam or cultures. she is reporting warmth and redness in her thenar emminence, I do not appreciate any warmth, minimal erythema, no streaking, fluctuance. nvi distally. nailbed unchanged. ok to dc from ortho standpoint. will need daily dressing changes as follows: adaptic over the nail bed, xeroform, telfa, and then tubular gauze. can fu with me or pcp for suture removal in 7-10 days postop. [facility] dedicated hand surgeon consult after discharge for followup of her injury CELIA MEDINA MD Nov 14, 2016 07:52
[2016-11-14] MEDS: GABAPENTIN 300 MG CAPSULE. PO SCH ×2 (08:10→15:01)
[2016-11-14] MEDS: INSULIN DETEMIR 300 UNITS/3 ML INSULN.PEN. SQ SCH (08:24)
[2016-11-14] MEDS: INSULIN ASPART 300 UNITS/3 ML INSULN.PEN SQ SCH ×4 (08:25→12:34)
[2016-11-14 09:06] LABS: CALCIUM 8.6 mg/dL (8.5-10.1); CREATININE 0.6 mg/dL (0.6-1.0); GFR 119.9; POTASSIUM 4.3 mmol/L (3.5-5.1)
[2016-11-14 09:12] LABS: BASO % 0 % (0-3); EOS % 3 % (0-3); HEMATOCRIT 32.8 % (36.0-47.0); HEMOGLOBIN 10.6 g/dL (12.0-15.5); LYMPH # 1.9 x10^3/uL (1.0-4.8); LYMPH % 36 % (24-48); MEAN CORPUSCULAR HEMOGLOBIN 25 pg (25-35); MEAN CORPUSCULAR HGB CONC 32 g/dL (31-37); MEAN CORPUSCULAR VOLUME 76 fL (79-100); MONO % 6 % (0-9); NEUT % 55 % (31-73); PLATELET COUNT 285 x10^3/uL (140-400); RED BLOOD COUNT 4.31 x10^6/uL (3.50-5.40); RED CELL DISTRIBUTION WIDTH 17.1 % (11.5-14.5); WHITE BLOOD COUNT 5.2 x10^3/uL (4.0-11.0)
[2016-11-14 11:00] VITALS: BP 108/60
--- NOTE | 2016-11-14 15:08 | PDOC ---
PROGRESS NOTES Chief Complaint Chief Complaint Thumb cellulitis, pain ? gangrene with subungal hematoma Noncompliance diabetes type I hyperlipidemia, ovarian cyst, chronic pain, ventral hernia History of Present Illness History of Present Illness Patient seen and evaluated at bedside. POD #2 s/p thumb debridement and nail removal . Patient continues to have pain to her thumb. dressing in place. Otherwise, resting comfortably. d/w nurse. Vitals Vitals Vital Signs Date Time Temp Pulse Resp B/P Pulse Ox O2 Delivery O2 Flow Rate FiO2 11/14/16 15:01 18 Room Air 11/14/16 11:00 98.4 91 108/60 91 98.4 Physical Exam General: Alert, Oriented X3, Cooperative, mild distress Heart: Regular rate, Normal S1 Lungs: Clear, Other (negative chest retractions. ) Abdomen: Normal bowel sounds, Soft, No tenderness Extremities: No edema, Other (thumb in gauze; incision clean, dry, and intact. no edema in hand. signs of necrosis to dorsum of thumb. no streaking or progressing erythema. ) Skin: No rashes Labs LABS Laboratory Tests Test 11/13/16 17:01 11/13/16 17:55 11/13/16 21:43 11/14/16 07:35 Glucose (Fingerstick) 61mg/dL (70-99) 122mg/dL (70-99) 219mg/dL (70-99) 337mg/dL (70-99) Test 11/14/16 08:38 11/14/16 11:49 White Blood Count 5.2x10^3/uL (4.0-11.0) Red Blood Count 4.31x10^6/uL (3.50-5.40) Hemoglobin 10.6g/dL (12.0-15.5) Hematocrit 32.8% (36.0-47.0) Mean Corpuscular Volume 76fL (79-100) Mean Corpuscular Hemoglobin 25pg (25-35) Mean Corpuscular Hemoglobin Concent 32g/dL (31-37) Red Cell Distribution Width 17.1% (11.5-14.5) Platelet Count 285x10^3/uL (140-400) Neutrophils (%) (Auto) 55% (31-73) Lymphocytes (%) (Auto) 36% (24-48) Monocytes (%) (Auto) 6% (0-9) Eosinophils (%) (Auto) 3% (0-3) Basophils (%) (Auto) 0% (0-3) Neutrophils # (Auto) 2.8x10^3uL (1.8-7.7) Lymphocytes # (Auto) 1.9x10^3/uL (1.0-4.8) Monocytes # (Auto) 0.3x10^3/uL (0.0-1.1) Eosinophils # (Auto) 0.1x10^3/uL (0.0-0.7) Basophils # (Auto) 0.0x10^3/uL (0.0-0.2) Sodium Level 138mmol/L (136-145) Potassium Level 4.3mmol/L (3.5-5.1) Chloride Level 100mmol/L (98-107) Carbon Dioxide Level 27mmol/L (21-32) Anion Gap 11 (6-14) Blood Urea Nitrogen 13mg/dL (7-20) Creatinine 0.6mg/dL (0.6-1.0) Estimated GFR (Cockcroft-Gault) 119.9 Glucose Level 319mg/dL (70-99) Calcium Level 8.6mg/dL (8.5-10.1) Glucose (Fingerstick) 183mg/dL (70-99) Review of Systems Review of Systems (+) Left thumb pain Denies chest pain, sob, abdominal pain, n/v/d, numbness/tingling, or fever/ chills. Assessment and Plan Assessmemt and Plan Problems Medical Problems: (1) Cellulitis Status: Acute (2) Elevated blood sugar Status: Acute (3) Inadequate pain control Status: Acute (4) Pain of left thumb Status: Acute (5) Uncontrolled diabetes mellitus Status: Acute ASSESSMENT 1. Thumb pain, ?gangrene vs.. traumatic injury vs. frostbite 2. L subungal hematoma s/p I&D, debridement, and nail removal POD #2 3. Diabetes mellitus Plan: 1.) continue pain regimen 2.) SSI with glucose checks. ADA diet 3.) continue wound care 4.) discharge to home. f/u with ortho and pcp in 1-2 weeks. suture removal in 7- 10 days. 5.) daily dressing changes recommended. activity as tolerated. Problems: Comment Review of Relevant I have reviewed the following items lizbeth (where applicable) has been applied. Labs Laboratory Tests Test 11/12/16 16:09 11/12/16 21:18 11/13/16 07:30 11/13/16 10:35 Glucose (Fingerstick) 161mg/dL (70-99) 332mg/dL (70-99) 292mg/dL (70-99) White Blood Count 5.7x10^3/uL (4.0-11.0) Red Blood Count 4.02x10^6/uL (3.50-5.40) Hemoglobin 9.8g/dL (12.0-15.5) Hematocrit 30.9% (36.0-47.0) Mean Corpuscular Volume 77fL (79-100) Mean Corpuscular Hemoglobin 25pg (25-35) Mean Corpuscular Hemoglobin Concent 32g/dL (31-37) Red Cell Distribution Width 16.9% (11.5-14.5) Platelet Count 262x10^3/uL (140-400) Neutrophils (%) (Auto) 57% (31-73) Lymphocytes (%) (Auto) 34% (24-48) Monocytes (%) (Auto) 6% (0-9) Eosinophils (%) (Auto) 2% (0-3) Basophils (%) (Auto) 0% (0-3) Neutrophils # (Auto) 3.3x10^3uL (1.8-7.7) Lymphocytes # (Auto) 1.9x10^3/uL (1.0-4.8) Monocytes # (Auto) 0.4x10^3/uL (0.0-1.1) Eosinophils # (Auto) 0.1x10^3/uL (0.0-0.7) Basophils # (Auto) 0.0x10^3/uL (0.0-0.2) Sodium Level 137mmol/L (136-145) Potassium Level 3.9mmol/L (3.5-5.1) Chloride Level 102mmol/L (98-107) Carbon Dioxide Level 24mmol/L (21-32) Anion Gap 11 (6-14) Blood Urea Nitrogen 12mg/dL (7-20) Creatinine 0.7mg/dL (0.6-1.0) Estimated GFR (Cockcroft-Gault) 100.4 Glucose Level 311mg/dL (70-99) Calcium Level 8.9mg/dL (8.5-10.1) Test 11/13/16 11:38 11/13/16 17:01 11/13/16 17:55 11/13/16 21:43 Glucose (Fingerstick) 223mg/dL (70-99) 61mg/dL (70-99) 122mg/dL (70-99) 219mg/dL (70-99) Test 11/14/16 07:35 11/14/16 08:38 11/14/16 11:49 Glucose (Fingerstick) 337mg/dL (70-99) 183mg/dL (70-99) White Blood Count 5.2x10^3/uL (4.0-11.0) Red Blood Count 4.31x10^6/uL (3.50-5.40) Hemoglobin 10.6g/dL (12.0-15.5) Hematocrit 32.8% (36.0-47.0) Mean Corpuscular Volume 76fL (79-100) Mean Corpuscular Hemoglobin 25pg (25-35) Mean Corpuscular Hemoglobin Concent 32g/dL (31-37) Red Cell Distribution Width 17.1% (11.5-14.5) Platelet Count 285x10^3/uL (140-400) Neutrophils (%) (Auto) 55% (31-73) Lymphocytes (%) (Auto) 36% (24-48) Monocytes (%) (Auto) 6% (0-9) Eosinophils (%) (Auto) 3% (0-3) Basophils (%) (Auto) 0% (0-3) Neutrophils # (Auto) 2.8x10^3uL (1.8-7.7) Lymphocytes # (Auto) 1.9x10^3/uL (1.0-4.8) Monocytes # (Auto) 0.3x10^3/uL (0.0-1.1) Eosinophils # (Auto) 0.1x10^3/uL (0.0-0.7) Basophils # (Auto) 0.0x10^3/uL (0.0-0.2) Sodium Level 138mmol/L (136-145) Potassium Level 4.3mmol/L (3.5-5.1) Chloride Level 100mmol/L (98-107) Carbon Dioxide Level 27mmol/L (21-32) Anion Gap 11 (6-14) Blood Urea Nitrogen 13mg/dL (7-20) Creatinine 0.6mg/dL (0.6-1.0) Estimated GFR (Cockcroft-Gault) 119.9 Glucose Level 319mg/dL (70-99) Calcium Level 8.6mg/dL (8.5-10.1) Laboratory Tests Test 11/13/16 17:01 11/13/16 17:55 11/13/16 21:43 11/14/16 07:35 Glucose (Fingerstick) 61mg/dL (70-99) 122mg/dL (70-99) 219mg/dL (70-99) 337mg/dL (70-99) Test 11/14/16 08:38 11/14/16 11:49 White Blood Count 5.2x10^3/uL (4.0-11.0) Red Blood Count 4.31x10^6/uL (3.50-5.40) Hemoglobin 10.6g/dL (12.0-15.5) Hematocrit 32.8% (36.0-47.0) Mean Corpuscular Volume 76fL (79-100) Mean Corpuscular Hemoglobin 25pg (25-35) Mean Corpuscular Hemoglobin Concent 32g/dL (31-37) Red Cell Distribution Width 17.1% (11.5-14.5) Platelet Count 285x10^3/uL (140-400) Neutrophils (%) (Auto) 55% (31-73) Lymphocytes (%) (Auto) 36% (24-48) Monocytes (%) (Auto) 6% (0-9) Eosinophils (%) (Auto) 3% (0-3) Basophils (%) (Auto) 0% (0-3) Neutrophils # (Auto) 2.8x10^3uL (1.8-7.7) Lymphocytes # (Auto) 1.9x10^3/uL (1.0-4.8) Monocytes # (Auto) 0.3x10^3/uL (0.0-1.1) Eosinophils # (Auto) 0.1x10^3/uL (0.0-0.7) Basophils # (Auto) 0.0x10^3/uL (0.0-0.2) Sodium Level 138mmol/L (136-145) Potassium Level 4.3mmol/L (3.5-5.1) Chloride Level 100mmol/L (98-107) Carbon Dioxide Level 27mmol/L (21-32) Anion Gap 11 (6-14) Blood Urea Nitrogen 13mg/dL (7-20) Creatinine 0.6mg/dL (0.6-1.0) Estimated GFR (Cockcroft-Gault) 119.9 Glucose Level 319mg/dL (70-99) Calcium Level 8.6mg/dL (8.5-10.1) Glucose (Fingerstick) 183mg/dL (70-99) Microbiology 11/12/16 Anaerobic/Aerobic Culture - Preliminary, Resulted 11/12/16 Anaerobic Culture Result 1 (ROLY) - Preliminary, Resulted 11/12/16 Aerobic Culture - Final, Resulted 11/12/16 Aerobic Culture Result 1 (ROLY) - Final, Resulted Medications Current Medications Sodium Chloride 1,000 ml @ 1,000 mls/hr Q1H IV Last administered on 11/11/16 00:26; Start 11/10/16 at 23:00; Stop 11/10/16 at 23:59; Status DC Vancomycin HCl 1.5 gm/Sodium Chloride 500 ml @ 250 mls/hr 1X ONCE IV Last administered on 11/11/16 00:27; Start 11/10/16 at 23:00; Stop 11/11/16 at 00:59 ; Status DC Clindamycin Phosphate (Cleocin 600 Mg Premix) 50 ml @ 100 mls/hr Q8HRS IV Last administered on 11/12/16 05:50; Start 11/11/16 at 06:00; Stop 11/12/16 at 08:42; Status DC Hydromorphone HCl (Dilaudid) 1 mg 1X ONCE IV Last administered on 11/11/16 00 :51; Start 11/11/16 at 00:45; Stop 11/11/16 at 00:46; Status DC Ondansetron HCl (Zofran) 4 mg 1X ONCE IV Last administered on 11/11/16 00:51 ; Start 11/11/16 at 00:45; Stop 11/11/16 at 00:46; Status DC Ondansetron HCl 4 mg 4 mg PRN Q8HRS PRN IV NAUSEA/VOMITING Last administered on 11/11/16 07:31; Start 11/11/16 at 01:00; Stop 11/11/16 at 12:47; Status DC Sodium Chloride (Iv Sodium Chloride 0.9% 1000ml Bag) 1,000 ml @ 125 mls/hr Q8H IV Last administered on 11/11/16 17:39; Start 11/11/16 at 01:00; Stop at 00:59; Status DC Acetaminophen (Tylenol) 650 mg PRN Q4HRS PRN PO FEVER; Start 11/11/16 at 01:00 ; Stop 11/12/16 at 00:59; Status DC Insulin Aspart (Novolog) 0-5 UNITS TIDWMEALS SQ Last administered on 11/14/16 12:34; Start 11/11/16 at 08:00 Hydromorphone HCl (Dilaudid) 0.5 mg PRN Q6HRS PRN IV PAIN Last administered on 11/11/16 13:33; Start 11/11/16 at 01:00; Stop 11/11/16 at 14:09; Status DC Dextrose (Dextrose 50%-Water Syringe) 12.5 gm PRN Q15MIN PRN IV SEE COMMENTS; Start 11/11/16 at 02:00 Dextrose (Dextrose 50%-Water Syringe) 12.5 gm PRN Q15MIN PRN IV SEE COMMENTS; Start 11/11/16 at 02:00; Status UNV Ondansetron HCl (Zofran) 4 mg PRN Q4HRS PRN IV NAUSEA/VOMITING Last administered on 11/12/16 09:40; Start 11/11/16 at 12:45; Stop 11/12/16 at 14:02 ; Status DC Hydromorphone HCl (Dilaudid) 0.5 mg PRN Q4HRS PRN IV PAIN Last administered on 11/12/16 09:40; Start 11/11/16 at 14:30; Stop 11/12/16 at 15:00; Status DC Diazepam (Valium) 5 mg PRN Q8HRS PRN PO ANXIETY; Start 11/11/16 at 15:00 Insulin Aspart (Novolog) 45 units TIDAC SQ Last administered on 11/14/16 12:34 ; Start 11/11/16 at 16:30 Insulin Detemir (Levemir) 85 units BID SQ Last administered on 11/14/16 08:24 ; Start 11/11/16 at 21:00 Oxycodone HCl (Roxicodone) 5 mg PRN Q6HRS PRN PO SEVERE PAIN; Start 11/11/16 at 15:00; Stop 11/12/16 at 14:02; Status DC Trimethoprim/ Sulfamethoxazole (Bactrim Ds) 1 tab BID PO ; Start 11/11/16 at 21: 00; Stop 11/11/16 at 21:00; Status DC Tramadol HCl (Ultram) 50 mg PRN Q6HRS PRN PO MILD PAIN; Start 11/11/16 at 15:00 Trazodone HCl (Desyrel) 100 mg QHS PO Last administered on 11/13/16 22:41; Start 11/11/16 at 21:00 Gabapentin (Neurontin) 600 mg TID PO Last administered on 11/14/16 15:01; Start 11/11/16 at 15:30 Ondansetron HCl (Zofran) 4 mg PRN Q6HRS PRN IV NAUSEA/VOMITING Last administered on 11/12/16 17:02; Start 11/12/16 at 08:00; Stop 11/12/16 at 18:00 ; Status DC Morphine Sulfate 1 mg 1 mg PRN Q10MIN PRN IV SEVERE PAIN (Second Choice); Start 11/12/16 at 08:00; Stop 11/12/16 at 14:02; Status DC Lactated Ringer's (Iv Lactated Ringers) 1,000 ml @ 30 mls/hr Q24H IV ; Start at 07:58; Stop 11/12/16 at 15:27; Status DC Lidocaine HCl 2 ml PRN 1X PRN ID PRIOR TO IV START; Start 11/12/16 at 08:00; Stop 11/12/16 at 18:00; Status DC Hydromorphone HCl (Dilaudid) 0.5 mg PRN Q10MIN PRN IV SEV PAIN, Second choice; Start 11/12/16 at 08:00; Stop 11/12/16 at 14:02; Status DC Prochlorperazine Edisylate 5 mg 5 mg PACU PRN PRN IV NAUSEA, MRX1; Start at 08:00; Stop 11/12/16 at 18:00; Status DC Cefepime HCl/ Sodium Chloride (Maxipime/Iv Sodium Chloride 0.9% 50ml) 50 ml @ 100 mls/hr Q8HRS IV Last administered on 11/12/16 09:39; Start 11/12/16 at 09: 00; Stop 11/12/16 at 14:05; Status DC Vancomycin HCl 1 each 1 each PRN DAILY PRN MC SEE COMMENTS Last administered on 11/12/16 10:08; Start 11/12/16 at 08:45; Stop 11/13/16 at 10:22; Status DC Vancomycin HCl 2 gm/Sodium Chloride 500 ml @ 250 mls/hr 1X ONCE IV Last administered on 11/12/16 09:39; Start 11/12/16 at 10:00; Stop 11/12/16 at 11:59 ; Status DC Vancomycin HCl/ Sodium Chloride (Iv Sodium Chloride 0.9% 500ml Bag) 500 ml @ 250 mls/hr Q8H IV ; Start 11/12/16 at 18:00; Stop 11/12/16 at 18:00; Status DC Vancomycin HCl 1 each 1X ONCE MC Last administered on 11/12/16 13:10; Start 11/13/16 at 09:30; Stop 11/13/16 at 09:31; Status DC Fentanyl Citrate (Fentanyl 2ml Vial) 100 mcg STK-MED ONCE .ROUTE ; Start at 11:45; Stop 11/12/16 at 11:46; Status DC Desflurane (Suprane) 30 ml STK-MED ONCE IH ; Start 11/12/16 at 11:45; Stop 11/12 at 11:46; Status DC Lidocaine HCl 100 mg 100 mg STK-MED ONCE .ROUTE ; Start 11/12/16 at 11:45; Stop 11/12/16 at 11:46; Status DC Propofol (Diprivan) 20 ml @ As Directed STK-MED ONCE IV ; Start 11/12/16 at 11: 45; Stop 11/12/16 at 11:46; Status DC Dexamethasone Sodium Phosphate (Decadron) 20 mg STK-MED ONCE .ROUTE ; Start at 11:45; Stop 11/12/16 at 11:46; Status DC Ondansetron HCl (Zofran) 4 mg STK-MED ONCE .ROUTE ; Start 11/12/16 at 11:45; Stop 11/12/16 at 11:46; Status DC Bupivacaine HCl/ Epinephrine Bitart (Sensorcaine-Epi 0.25%-1:[id number] Mpf) 30 ml STK-MED ONCE .ROUTE ; Start 11/12/16 at 12:49; Stop 11/12/16 at 12:50; Status DC Bupivacaine HCl (Sensorcaine Mpf 0.25%) 30 ml STK-MED ONCE .ROUTE ; Start at 12:49; Stop 11/12/16 at 12:50; Status DC Morphine Sulfate 10 mg STK-MED ONCE .ROUTE ; Start 11/12/16 at 13:14; Stop 11/12 at 13:15; Status DC Oxycodone HCl (Roxicodone) 5 mg PRN Q4HRS PRN PO MODERATE PAIN; Start 11/12/16 at 15:00 Cephalexin HCl (Keflex) 500 mg TID PO ; Start 11/12/16 at 15:00; Stop 11/12/16 at 15:00; Status DC Oxycodone HCl (Roxicodone) 10 mg PRN Q4HRS PRN PO SEVERE PAIN Last administered on 11/14/16 15:01; Start 11/12/16 at 14:15 Hydromorphone HCl (Dilaudid) 0.5 mg PRN Q10MIN PRN IV SEV PAIN, Second choice Last administered on 11/12/16 14:46; Start 11/12/16 at 14:30; Stop 11/12/16 at 16:00; Status DC Hydromorphone HCl (Dilaudid) 0.3 mg PRN Q4HRS PRN IV PAIN Last administered on 11/14/16 12:45; Start 11/12/16 at 15:00 Bupivacaine HCl/ Epinephrine Bitart (Sensorcaine-Epi 0.25%-1:[id number] Mpf) 30 ml STK-MED ONCE .ROUTE ; Start 11/12/16 at 15:18; Stop 11/12/16 at 15:19; Status DC Bupivacaine HCl (Sensorcaine Mpf 0.25%) 30 ml STK-MED ONCE .ROUTE ; Start at 15:18; Stop 11/12/16 at 15:19; Status DC Lidocaine/Sodium Bicarbonate 20 ml 20 ml STK-MED ONCE IJ ; Start 11/12/16 at 16: 20; Stop 11/12/16 at 16:21; Status DC Heparin Sodium/ Sodium Chloride 0 ml @ As Directed STK-MED ONCE .ROUTE ; Start 11/12/16 at 16:21; Stop 11/12/16 at 16:22; Status DC Active Scripts Active Sulfamethoxazole-Tmp Ds Tablet (Sulfamethoxazole/Trimethoprim) 1 Each Tablet 1 Tab PO BID 7 Days Oxycodone Hcl 5 Mg Tablet 5 Mg PO PRN Q6HRS PRN Levemir Flextouch (Insulin Detemir) 100 Unit/1 Ml Insuln.pen 85 Units SQ BID 30 Days Novolog Flexpen (Insulin Aspart) 100 Unit/1 Ml Insuln.pen 45 Units SQ TIDAC 30 Days Ultram (Tramadol Hcl) 50 Mg Tablet 50 Mg PO Q6H PRN Reported Trazodone Hcl 100 Mg Tablet 1 Tab PO QHS Valium (Diazepam) 5 Mg Tablet 5 Mg PO PRN Q8HRS PRN Gabapentin 600 Mg Tablet 600 Mg PO TID Vitals/I & O Vital Sign - Last 24 Hours 11/13/16 11/13/16 11/13/16 11/13/16 16:41 18:48 19:15 20:25 Temp 98.2 98.2 Pulse 108 Resp 16 16 20 18 B/P 121/65 Pulse Ox 96 O2 Delivery Room Air Room Air Room Air Room Air 11/13/16 11/13/16 11/13/16 11/14/16 20:30 22:43 23:00 00:51 Temp 98.3 98.3 Pulse 91 Resp 18 18 18 B/P 122/71 Pulse Ox 97 O2 Delivery Room Air Room Air Room Air Room Air 11/14/16 11/14/16 11/14/16 11/14/16 02:00 03:07 03:17 07:00 Temp 98.1 98.4 98.1 98.4 Pulse 97 89 Resp 18 18 18 20 B/P 124/66 105/54 Pulse Ox 97 96 O2 Delivery Room Air Room Air Room Air Room Air 11/14/16 11/14/16 11/14/16 11/14/16 08:11 11:00 12:45 13:15 Temp 98.4 98.4 Pulse 91 Resp 16 20 16 16 B/P 108/60 Pulse Ox 91 O2 Delivery Room Air Room Air Room Air Room Air 11/14/16 15:01 Resp 18 O2 Delivery Room Air Intake and Output 11/13/16 11/13/16 11/14/16 15:00 23:00 07:00 Intake Total 480 ml Balance 480 ml EDGARD GUTIERREZ III DO Nov 14, 2016 15:08
--- NOTE | 2016-11-16 03:38 | DS ---
DATE OF DISCHARGE: 11/14/2016 ADMISSION DIAGNOSES: Right thumb infection and uncontrolled diabetes. DISCHARGE DIAGNOSES: Resolving right thumb infection, status post incision and drainage. HOSPITAL COURSE: The patient is a pleasant 25-year-old female well known to our service. She gets admitted quite a bit with hyperglycemia and pain issues. At this time, her right thumb was infected. She was concerned that this could have been from her IV she had from her previous admission. We admitted the patient and consulted Orthopedics and Infectious Disease. She was taken for incision and drainage. Post-procedure, she did well. We discharged to home. DISPOSITION: Home. ACTIVITY: As tolerated. DIET: Low sodium. MEDICATIONS: Please see the MRAD. TOTAL TIME: 34 minutes. EDGARD GUTIERREZ DO DR: ROSY/ric JOB#: [id number] / [id number]
== END 2016-11-14 16:50 | disposition home or self-care (01) | DRG 922 ==
LOC: ER 22:01 → 4 NORTH 11-11 00:37
PROVIDERS: ADMIT Internal Medicine Hematology & Oncology; ATTEND Internal Medicine Hematology & Oncology
PROC: 0HTQXZZ Resection of Finger Nail, External Approach (ICD-10-PCS; principal; 2016-11-12 12:30)
DX: T33.532A Superficial frostbite of left finger(s), initial encounter (principal); E10.10 Type 1 diabetes mellitus with ketoacidosis without coma; E10.52 Type 1 diabetes mellitus with diabetic peripheral angiopathy with gangrene; L03.012 Cellulitis of left finger; S69.92XA Unspecified injury of left wrist, hand and finger(s), initial encounter; Z88.0 Allergy status to penicillin; Z88.1 Allergy status to other antibiotic agents; Z88.5 Allergy status to narcotic agent; E10.40 Type 1 diabetes mellitus with diabetic neuropathy, unspecified; E78.5 Hyperlipidemia, unspecified; G89.29 Other chronic pain; I10 Essential (primary) hypertension; K43.9 Ventral hernia without obstruction or gangrene; Z83.3 Family history of diabetes mellitus; Z90.49 Acquired absence of other specified parts of digestive tract; Z91.19 Patient's noncompliance with other medical treatment and regimen; Z90.79 Acquired absence of other genital organ(s); F41.9 Anxiety disorder, unspecified
CPT/HCPCS: 36415; 73130; 80048; 80053; 81001; 81025; 82947; 85027; 87071; 87075; 87205; 96374; 96375; J0692; J1100; J1170; J1815; J2270; J2405; J2704; J3010; J3370; J3490; J7030; J7040; 99285-25

== ENCOUNTER 2016-11-27 22:25 | Emergency (ER) | payer MEDICAID ==
[2016-11-27 22:43] VITALS: BP 120/75
--- NOTE | 2016-11-28 00:25 | PHYS DOC ---
Past Medical History Past Medical History: Diabetes-Type I, MRSA, Other Additional Past Medical Histor: neuropathy, ovarian cyst,CHRONIC ABD PAIN, VENTRAL HERNIA, hyperglycemia Past Surgical History: Appendectomy, Cholecystectomy, Oophorectomy, Other Additional Past Surgical Histo: R fallopian tube removed, L ovarian cyst removed,HERNIA REPAIR, I&D L ARM Alcohol Use: None Drug Use: None Adult General Chief Complaint Chief Complaint: POST-OP PROBLEM HPI HPI Patient is a 25 year old female who presents with complaint of left thumb pain. Patient states that she had surgical intervention to her left thumb while admitted the hospital earlier this month for Dr. Medina. Patient states she had nail removal due to concern for possible felon. Patient states initially there was not any signs of infection found however there was tissue damage at that time. The patient states that she followed up at another facility for wound care and stated that she had pus draining from the wound which required further debridement. The patient states that she is having worsening pain to the thumb currently and patient is also concerned because she has been having high blood sugars. Patient denies any fevers. Patient states her pain as 10 out of 10 in the affected extremity. Review of Systems Review of Systems Constitutional: Denies fever or chills [] Eyes: Denies change in visual acuity, redness, or eye pain [] HENT: Denies nasal congestion or sore throat [] Respiratory: Denies cough or shortness of breath [] Cardiovascular: Denies chest pain or edema [] GI: Denies abdominal pain, nausea, vomiting, bloody stools or diarrhea [] : Denies dysuria or hematuria [] Musculoskeletal: Left thumb pain [] Integument: Denies rash or skin lesions [] Neurologic: Denies headache, focal weakness or sensory changes [] Current Medications Current Medications Current Medications Medications (Trade) Dose Ordered Sig/Naya Start Time Stop Time Status Last Admin Dose Admin Hydromorphone HCl (Dilaudid) 1 mg 1X ONCE 11/28/16 01:30 11/28/16 01:44 DC 11/28/16 01:34 1 MG Insulin Aspart (Novolog) 8 units 1X ONCE 11/28/16 03:30 11/28/16 03:31 DC 11/28/16 03:44 8 UNITS Ondansetron HCl (Zofran Odt) 4 mg 1X ONCE 11/28/16 01:30 11/28/16 01:44 DC 11/28/16 01:33 4 MG Oxycodone/ Acetaminophen (Percocet 5/325) 1 tab STK-MED ONCE 11/28/16 03:27 11/28/16 03:28 DC Allergies Allergies Allergies Coded Allergies Type Severity Reaction Last Updated Verified Penicillins Allergy Severe ANAPHYLAXIS, cefepime ok 11/12/16 Yes codeine Allergy Intermediate Tolerates Dilaudid, MORPHINE 11/12/16 Yes doxycycline Allergy Intermediate 11/12/16 Yes fentanyl Allergy Intermediate 11/12/16 Yes hydrocodone Adverse Reaction Intermediate itching 11/12/16 Yes Physical Exam Physical Exam Constitutional: Alert, afebrile, appears in moderate to severe discomfort. [] HENT: Normocephalic, atraumatic, bilateral external ears normal, oropharynx moist, no oral exudates, nose normal. [] Eyes: PERRLA, EOMI, conjunctiva normal, no discharge. [] Neck: Normal range of motion, no tenderness, supple, no stridor. [] Cardiovascular:Heart rate regular rhythm, no murmur [] Lungs & Thorax: Bilateral breath sounds clear to auscultation [] Abdomen: Bowel sounds normal, soft, no tenderness, no masses, no pulsatile masses. [] Skin: Warm, dry, no erythema, no rash. [] Back: No tenderness, no CVA tenderness. [] Extremities: Deep wound present along dorsal aspect of left thumb with superficial necrotic tissue, no lymphangitic streaking up the left arm, tenderness to palpation along base of thumb. [] Neurologic: Alert and oriented X 3, normal motor function, normal sensory function, no focal deficits noted. [] Current Patient Data Vital Signs Vital Signs Date Time Temp Pulse Resp B/P Pulse Ox O2 Delivery O2 Flow Rate FiO2 11/28/16 03:39 16 Room Air 11/27/16 22:43 98.6 122 120/75 98 98.6 Lab Values Laboratory Tests Test 11/27/16 23:51 11/28/16 02:00 Glucose (Fingerstick) 391mg/dL (70-99) H White Blood Count 8.4x10^3/uL (4.0-11.0) Red Blood Count 4.83x10^6/uL (3.50-5.40) Hemoglobin 12.0g/dL (12.0-15.5) Hematocrit 36.6% (36.0-47.0) Mean Corpuscular Volume 76fL (79-100) L Mean Corpuscular Hemoglobin 25pg (25-35) Mean Corpuscular Hemoglobin Concent 33g/dL (31-37) Red Cell Distribution Width 17.2% (11.5-14.5) H Platelet Count 291x10^3/uL (140-400) Neutrophils (%) (Auto) 63% (31-73) Lymphocytes (%) (Auto) 28% (24-48) Monocytes (%) (Auto) 7% (0-9) Eosinophils (%) (Auto) 2% (0-3) Basophils (%) (Auto) 1% (0-3) Neutrophils # (Auto) 5.3x10^3uL (1.8-7.7) Lymphocytes # (Auto) 2.4x10^3/uL (1.0-4.8) Monocytes # (Auto) 0.6x10^3/uL (0.0-1.1) Eosinophils # (Auto) 0.1x10^3/uL (0.0-0.7) Basophils # (Auto) 0.1x10^3/uL (0.0-0.2) Sodium Level 133mmol/L (136-145) L Potassium Level 3.7mmol/L (3.5-5.1) Chloride Level 97mmol/L (98-107) L Carbon Dioxide Level 22mmol/L (21-32) Anion Gap 14 (6-14) Blood Urea Nitrogen 9mg/dL (7-20) Creatinine 0.7mg/dL (0.6-1.0) Estimated GFR (Cockcroft-Gault) 100.4 BUN/Creatinine Ratio 13 (6-20) Glucose Level 376mg/dL (70-99) H Calcium Level 9.0mg/dL (8.5-10.1) Total Bilirubin 0.4mg/dL (0.2-1.0) Aspartate Amino Transferase (AST) 22U/L (15-37) Alanine Aminotransferase (ALT) 37U/L (14-59) Alkaline Phosphatase 151U/L (46-116) H Total Protein 8.2g/dL (6.4-8.2) Albumin 3.8g/dL (3.4-5.0) Albumin/Globulin Ratio 0.9 (1.0-1.7) L Laboratory Tests 11/28/16 02:00 Laboratory Tests 11/28/16 02:00 EKG EKG Not performed [] Radiology/Procedures Radiology/Procedures 3 view left hand x-ray interpreted by me: No fractures, no evidence of osteomyelitis, no gas formation in soft tissues [] Course & Med Decision Making Course & Med Decision Making Pertinent Labs and Imaging studies reviewed. (See chart for details) Patient was given IM Dilaudid and oral Zofran as well as 8 units of subcutaneous NovoLog. The patient's wound though not healing does not appear to be infected at this time. Patient's blood work is unremarkable. I consulted the office of Dr. Dennis of orthopedic surgery and spoke with Jazzy, advanced practice provider. She stated that the patient would be able to follow-up in their clinic in the next few days for reevaluation. Patient was provided with a prescription for Percocet to help with pain. Advised return to the emergency department for any worsening symptoms. Patient voiced understanding and in agreement with treatment plan. Dragon Disclaimer Dragon Disclaimer This electronic medical record was generated, in whole or in part, using a voice recognition dictation system. Departure Departure Impression: Primary Impression: Nonhealing surgical wound Additional Impression: Uncontrolled diabetes mellitus Disposition: 01 HOME, SELF-CARE Condition: STABLE Referrals: NO PCP (PCP) CELIA MEDINA MD Patient Instructions: Hyperglycemia, Wound Care, [id number] Additional Instructions: Follow-up with Dr. Medina in the next 3-4 days. Return to the emergency department for any worsening symptoms. Scripts Oxycodone/Apap 5-325 (Percocet 5-325 Mg Tablet)1 Each Tablet1-2 Tab PO Q4-6HRS # 15 TAB Prov:VENKATESH LEROY MD 11/28/16 Problem Qualifiers Primary Impression: Nonhealing surgical wound Encounter type: subsequent encounter Qualified Code: T81.89XD - Other complications of procedures, not elsewhere classified, subsequent encounter Additional Impression: Uncontrolled diabetes mellitus Diabetes mellitus type: type 2 Diabetes mellitus complication status: with hyperglycemia Diabetes mellitus fdc insulin use: with fdc use Qualified Code: E11.65 - Type 2 diabetes mellitus with hyperglycemia VENKATESH LEROY MD Nov 28, 2016 00:24
[2016-11-28] MEDS ORDERED: HYDROmorphone 2 MG/ML VIAL IM ONE (01:30)
[2016-11-28] MEDS ORDERED: ONDANSETRON ODT 4 MG TAB.RAPDIS. PO ONE (01:30)
[2016-11-28 02:24] LABS: BASO % 1 % (0-3); EOS % 2 % (0-3); HEMATOCRIT 36.6 % (36.0-47.0); LYMPH # 2.4 x10^3/uL (1.0-4.8); LYMPH % 28 % (24-48); MEAN CORPUSCULAR HEMOGLOBIN 25 pg (25-35); MEAN CORPUSCULAR HGB CONC 33 g/dL (31-37); MEAN CORPUSCULAR VOLUME 76 fL (79-100); MONO % 7 % (0-9); NEUT % 63 % (31-73); PLATELET COUNT 291 x10^3/uL (140-400); RED BLOOD COUNT 4.83 x10^6/uL (3.50-5.40); RED CELL DISTRIBUTION WIDTH 17.2 % (11.5-14.5); WHITE BLOOD COUNT 8.4 x10^3/uL (4.0-11.0)
[2016-11-28 02:25] LABS: BASO # 0.1 x10^3/uL (0.0-0.2)
[2016-11-28 02:34] LABS: ALBUMIN 3.8 g/dL (3.4-5.0); ALBUMIN/GLOBULIN RATIO 0.9 (1.0-1.7); CREATININE 0.7 mg/dL (0.6-1.0); GFR 100.4; TOTAL PROTEIN 8.2 g/dL (6.4-8.2)
[2016-11-28 02:35] LABS: POTASSIUM 3.7 mmol/L (3.5-5.1); TOTAL BILIRUBIN 0.4 mg/dL (0.2-1.0)
[2016-11-28] MEDS ORDERED: HYDR-971 PO (02:57)
[2016-11-28] MEDS ORDERED: OXYC-323 PO (02:58)
[2016-11-28] MEDS ORDERED: OXYCODONE/APAP 5/325 TABLET. ONE (03:27)
[2016-11-28] MEDS ORDERED: INSULIN ASPART 300 UNITS/3 ML INSULN.PEN SQ ONE (03:30)
[2016-11-28] MEDS ORDERED: OXYCODONE/APAP 5/325 TABLET. PO ONE (04:00)
--- NOTE | 2016-11-28 08:02 | RAD ---
Three-view study of the left hand Indications: Left thumb infection Findings: A dorsal soft tissue defect is seen. No radiopaque foreign body is evident. No acute fracture or dislocation or osteolytic process is seen. IMPRESSION: No acute osseous abnormality is seen.
== END 2016-11-28 03:44 | disposition home or self-care (01) ==
LOC: ER 22:25
DX: T81.89XA Other complications of procedures, not elsewhere classified, initial encounter (principal); E10.9 Type 1 diabetes mellitus without complications; Z86.14 Personal history of Methicillin resistant Staphylococcus aureus infection; E10.40 Type 1 diabetes mellitus with diabetic neuropathy, unspecified; Z88.0 Allergy status to penicillin; Z90.49 Acquired absence of other specified parts of digestive tract; Z90.721 Acquired absence of ovaries, unilateral; Z98.890 Other specified postprocedural states; Z88.5 Allergy status to narcotic agent; Z88.1 Allergy status to other antibiotic agents
CPT/HCPCS: 36415; 73130; 80053; 82947; 85027; 96372; 99285; J1170; J1815; Q0162

== ENCOUNTER 2016-12-24 01:49 | Inpatient (IN) | payer MEDICAID ==
[~2016-12-24] VITALS: Ht 170.2 cm; Wt 99.9 kg
[~2016-12-24 01:49] MED LIST changes: +HYDR-971 PO; +OXYC-323 PO; -POTA10CA PO; +POTASSIUM CHLO10 MEQ PO
--- NOTE | 2016-12-24 03:28 | PHYS DOC ---
Past Medical History Past Medical History: Diabetes-Type I, MRSA, Other Additional Past Medical Histor: neuropathy, ovarian cyst,CHRONIC ABD PAIN, VENTRAL HERNIA, hyperglycemia Past Surgical History: Appendectomy, Cholecystectomy, Oophorectomy, Other Additional Past Surgical Histo: R fallopian tube removed, L ovarian cyst removed,HERNIA REPAIR, I&D L ARM Alcohol Use: None Drug Use: None Adult General Chief Complaint Chief Complaint: HYPERGLYCEMIA HPI HPI Patient is a 26 year old female who presents with redness, swelling and increased pain to left thumb. She is a type I diabetic (since age of 8) who developed an infection in her left thumb that required initially debridement but then distal amputation approx 2 weeks ago (at outside facility in [place]) . She returns home and for the past 2 days has had pain, redness, drainage from the incision (sutures still intact). She has had vomiting despite use of Zofran ODT and phenergan sup and cannot keep down antibiotics (levaquin and bactrim) or pain meds. She has had chills. She is a very difficult IV stick notoriously and states "I was suppose to get a PORT the last time I was admitted, but they cancelled it." Review of Systems Review of Systems Constitutional: Unknown fever. Some chills Eyes: Denies change in visual acuity, redness, or eye pain HENT: Denies nasal congestion or sore throat Respiratory: Denies cough or shortness of breath Cardiovascular: No chest pain GI: Denies abdominal pain. nausea, vomiting for 2 days. No bloody stools or diarrhea : Denies dysuria or hematuria Musculoskeletal: Denies back pain. Integument: see HPI Neurologic: Denies headache, focal weakness or sensory changes Current Medications Current Medications Current Medications Medications (Trade) Dose Ordered Sig/Naya Start Time Stop Time Status Last Admin Dose Admin Dextrose (Dextrose 50%-Water Syringe) 12.5 gm PRN Q15MIN PRN 12/24/16 04:45 Hydromorphone HCl (Dilaudid) 1 mg PRN Q4HRS PRN 12/24/16 05:00 12/24/16 05:27 1 MG Insulin Aspart (NovoLOG) 0-9 UNITS TIDWMEALS 12/24/16 08:00 UNV Insulin Detemir (Levemir) 10 units QHS 12/24/16 21:00 Insulin Human Regular (NovoLIN R VIAL) 20 unit 1X ONCE 12/24/16 05:00 12/24/16 05:01 DC 12/24/16 05:29 20 UNIT Linezolid (Zyvox) 600 mg BID 12/24/16 04:00 12/24/16 03:48 600 MG Ondansetron HCl (Zofran) 4 mg PRN Q8HRS PRN 12/24/16 04:45 12/25/16 04:44 Sodium Chloride 1,000 ml @ 125 mls/hr 1X ONCE 12/24/16 05:00 12/24/16 12:59 12/24/16 05:18 125 MLS/HR Allergies Allergies Allergies Coded Allergies Type Severity Reaction Last Updated Verified Penicillins Allergy Severe ANAPHYLAXIS, cefepime ok 11/12/16 Yes codeine Allergy Intermediate Tolerates Dilaudid, MORPHINE 11/12/16 Yes doxycycline Allergy Intermediate 11/12/16 Yes fentanyl Allergy Intermediate 11/12/16 Yes hydrocodone Adverse Reaction Intermediate itching 11/12/16 Yes Physical Exam Physical Exam Constitutional: Well developed, well nourished, no acute distress, non-toxic appearance. HENT: Normocephalic, atraumatic, bilateral external ears normal, oropharynx moist, no oral exudates, nose normal. Eyes: PERRLA, EOMI, conjunctiva normal, no discharge. Neck: Normal range of motion, no tenderness, supple, no stridor. Cardiovascular:Heart rate regular rhythm, tachycardic, no murmur Lungs & Thorax: Bilateral breath sounds clear to auscultation Abdomen: Bowel sounds normal, soft, no tenderness, no masses, no pulsatile masses. Skin: Warm, dry, no erythema, no rash. Back: No tenderness, no CVA tenderness. Extremities: left thumb: sutures intact. erythema from sutures extending to MCP joint. Edema noted. Neurologic: Alert and oriented X 3, normal motor function, normal sensory function, no focal deficits noted. Psychologic: Affect normal, judgement normal, mood normal. Current Patient Data Vital Signs Vital Signs Date Time Temp Pulse Resp B/P (MAP) Pulse Ox O2 Delivery O2 Flow Rate FiO2 12/24/16 05:27 98 Room Air P 115, BP 149/76, sat 98% Laboratory Tests Test 12/24/16 02:24 12/24/16 03:25 Glucose (Fingerstick) 479 mg/dL White Blood Count 5.2 x10^3/uL Red Blood Count 4.28 x10^6/uL Hemoglobin 10.5 g/dL Hematocrit 32.7 % Mean Corpuscular Volume 76 fL Mean Corpuscular Hemoglobin 25 pg Mean Corpuscular Hemoglobin Concent 32 g/dL Red Cell Distribution Width 17.3 % Platelet Count 224 x10^3/uL Neutrophils (%) (Auto) 54 % Lymphocytes (%) (Auto) 37 % Monocytes (%) (Auto) 7 % Eosinophils (%) (Auto) 2 % Basophils (%) (Auto) 0 % Neutrophils # (Auto) 2.8 x10^3uL Lymphocytes # (Auto) 1.9 x10^3/uL Monocytes # (Auto) 0.3 x10^3/uL Eosinophils # (Auto) 0.1 x10^3/uL Basophils # (Auto) 0.0 x10^3/uL Sodium Level 134 mmol/L Potassium Level 4.7 mmol/L Chloride Level 99 mmol/L Carbon Dioxide Level 20 mmol/L Anion Gap 15 Blood Urea Nitrogen 10 mg/dL Creatinine 0.9 mg/dL Estimated GFR (Cockcroft-Gault) 74.6 Glucose Level 532 mg/dL Lactic Acid Level 3.9 mmol/L Calcium Level 8.8 mg/dL C-Reactive Protein, Quantitative 13.9 mg/L Acetone Level Neg Current Medications Medications (Trade) Dose Ordered Sig/Naya Route PRN Reason Start Time Stop Time Status Last Admin Dose Admin Ondansetron HCl (Zofran) 4 mg 1X ONCE IV 12/24/16 04:00 12/24/16 04:01 DC 12/24/16 03:47 4 MG Sodium Chloride 1,000 ml @ 1,000 mls/hr 1X ONCE IV 12/24/16 04:00 12/24/16 04:59 DC 12/24/16 03:47 1,000 MLS/HR Linezolid (Zyvox) 600 mg BID PO 12/24/16 04:00 12/24/16 03:48 600 MG Hydromorphone HCl (Dilaudid) 1 mg 1X ONCE IV 12/24/16 04:00 12/24/16 04:01 DC 12/24/16 03:48 1 MG Insulin Human Regular (NovoLIN R VIAL) 20 unit 1X ONCE IV 12/24/16 05:00 12/24/16 05:01 DC 12/24/16 05:29 20 UNIT Ondansetron HCl (Zofran) 4 mg PRN Q8HRS PRN IV NAUSEA/VOMITING 12/24/16 04:45 12/25/16 04:44 Sodium Chloride 1,000 ml @ 125 mls/hr 1X ONCE IV 12/24/16 05:00 12/24/16 12:59 12/24/16 05:18 125 MLS/HR Insulin Detemir (Levemir) 10 units QHS SQ 12/24/16 21:00 Insulin Aspart (NovoLOG) 0-5 UNITS TIDWMEALS SQ 12/24/16 08:00 UNV Insulin Aspart (NovoLOG) 0-7 UNITS TIDWMEALS SQ 12/24/16 08:00 Insulin Aspart (NovoLOG) 0-9 UNITS TIDWMEALS SQ 12/24/16 08:00 UNV Dextrose (Dextrose 50%-Water Syringe) 12.5 gm PRN Q15MIN PRN IV SEE COMMENTS 12/24/16 04:45 Hydromorphone HCl (Dilaudid) 1 mg PRN Q4HRS PRN IV SEVERE PAIN 12/24/16 05:00 12/24/16 05:27 1 MG Lab Values Laboratory Tests Test 12/24/16 02:24 12/24/16 03:25 Glucose (Fingerstick) 479 mg/dL (70-99) H White Blood Count 5.2 x10^3/uL (4.0-11.0) Red Blood Count 4.28 x10^6/uL (3.50-5.40) Hemoglobin 10.5 g/dL (12.0-15.5) L Hematocrit 32.7 % (36.0-47.0) L Mean Corpuscular Volume 76 fL (79-100) L Mean Corpuscular Hemoglobin 25 pg (25-35) Mean Corpuscular Hemoglobin Concent 32 g/dL (31-37) Red Cell Distribution Width 17.3 % (11.5-14.5) H Platelet Count 224 x10^3/uL (140-400) Neutrophils (%) (Auto) 54 % (31-73) Lymphocytes (%) (Auto) 37 % (24-48) Monocytes (%) (Auto) 7 % (0-9) Eosinophils (%) (Auto) 2 % (0-3) Basophils (%) (Auto) 0 % (0-3) Neutrophils # (Auto) 2.8 x10^3uL (1.8-7.7) Lymphocytes # (Auto) 1.9 x10^3/uL (1.0-4.8) Monocytes # (Auto) 0.3 x10^3/uL (0.0-1.1) Eosinophils # (Auto) 0.1 x10^3/uL (0.0-0.7) Basophils # (Auto) 0.0 x10^3/uL (0.0-0.2) Sodium Level 134 mmol/L (136-145) L Potassium Level 4.7 mmol/L (3.5-5.1) Chloride Level 99 mmol/L (98-107) Carbon Dioxide Level 20 mmol/L (21-32) L Anion Gap 15 (6-14) H Blood Urea Nitrogen 10 mg/dL (7-20) Creatinine 0.9 mg/dL (0.6-1.0) Estimated GFR (Cockcroft-Gault) 74.6 Glucose Level 532 mg/dL (70-99) *H Lactic Acid Level 3.9 mmol/L (0.4-2.0) H Calcium Level 8.8 mg/dL (8.5-10.1) C-Reactive Protein, Quantitative 13.9 mg/L (0-3.3) H Acetone Level Neg (NEG) Laboratory Tests 12/24/16 03:25 Laboratory Tests 12/24/16 03:25 Radiology/Procedures Radiology/Procedures Xray left hand: no gas in soft tissue Course & Med Decision Making Course & Med Decision Making Pertinent Labs and Imaging studies reviewed. (See chart for details) evaluated patient. Very difficult IV access. Needs Port. IV obtained here (but in right foot); 24 g. IV Zofran. Dosed with po Vyvox here. 0415 am: Patient with hyperglycemia but negative acetone. Lactic acid elevated. CRP elevated. Spoke with Dr Granados; will admit; placed PICC line consult for this am. Do not feel comfortable placing IV antibiotics in the foot. She's been given IV fluids, IV insulin, IV Dilaudid, IV Zofran daily peripheral IV access. She is much more comfortable now. Infectious disease consult placed as well. Dragon Disclaimer Dragon Disclaimer This electronic medical record was generated, in whole or in part, using a voice recognition dictation system. Departure Departure Impression: Primary Impression: Recurrent cellulitis Additional Impressions: Diabetes mellitus type 1 Hyperglycemia due to type 1 diabetes mellitus Nausea & vomiting Disposition: ADMITTED INPATIENT Condition: STABLE Referrals: NO PCP (PCP) Problem Qualifiers JAYESH JACK MD December 24, 2016 03:28
[2016-12-24 03:41] LABS: BASO % 0 % (0-3); EOS % 2 % (0-3); HEMATOCRIT 32.7 % (36.0-47.0); HEMOGLOBIN 10.5 g/dL (12.0-15.5); LYMPH # 1.9 x10^3/uL (1.0-4.8); LYMPH % 37 % (24-48); MEAN CORPUSCULAR HEMOGLOBIN 25 pg (25-35); MEAN CORPUSCULAR HGB CONC 32 g/dL (31-37); MEAN CORPUSCULAR VOLUME 76 fL (79-100); MONO % 7 % (0-9); NEUT % 54 % (31-73); PLATELET COUNT 224 x10^3/uL (140-400); RED BLOOD COUNT 4.28 x10^6/uL (3.50-5.40); RED CELL DISTRIBUTION WIDTH 17.3 % (11.5-14.5); WHITE BLOOD COUNT 5.2 x10^3/uL (4.0-11.0)
[2016-12-24] MEDS: LINEZOLID 600 MG TABLET PO SCH ×2 (03:48→21:11)
[2016-12-24] MEDS ORDERED: ONDANSETRON PF 4 MG/2 ML VIAL. IV ONE (04:00)
[2016-12-24] MEDS ORDERED: IV NORMAL SALINE 1000ML BAG 1,000 ML IV ONE ×2 (04:00→05:00)
[2016-12-24] MEDS ORDERED: HYDROmorphone 2 MG/ML VIAL IV ONE (04:00)
[2016-12-24 04:16] LABS: C-REACTIVE PROTEIN 13.9 mg/L (0-3.3); CALCIUM 8.8 mg/dL (8.5-10.1); CREATININE 0.9 mg/dL (0.6-1.0); GFR 74.6; POTASSIUM 4.7 mmol/L (3.5-5.1)
[2016-12-24] MEDS ORDERED: DEXTROSE 50% 25 GM / 50ML DISP.SYRIN. IV PRN (04:45)
[2016-12-24] MEDS ORDERED: ONDANSETRON PF 4 MG/2 ML VIAL. IV PRN (04:45)
[2016-12-24] MEDS ORDERED: INSULIN REGULAR 100 UNIT/ML 10ML VIAL. IV ONE (05:00)
--- NOTE | 2016-12-24 05:22 | ACF ---
Admission Forms Criteria CELLULITIS Clinical Indications for Admission to Inpatient Care (Place 'X' for any and all applicable criteria): Admission is indicated for ANY ONE of the following(1)(2)(3)(4)(5): [ ]I. Limb-threatening infection [ ]II. High-risk comorbid condition as indicated by ANY ONE of the following: [ ]a) Uncontrolled diabetes (eg, HbA1c greater than 10% (0.1)) [ ]b) Cirrhosis [ ]c) Neutropenia [ ]d) Asplenia [ ]e) Immunosuppression [ ]f) Symptomatic heart failure [ ]III. Failure of outpatient therapy as indicated by ALL of the following: [ ]a) Progression or no improvement after adequate trial (minimum of 48 hours, with longer period for stable lower extremity infection) [ ]b) Adequate antibiotic regimen as indicated by use of ANY ONE of the following: [ ]i) First-generation cephalosporin (e.g., cephalexin) [ ]ii) Antistaphylococcal penicillin (e.g., dicloxacillin) [ ]iii) Penicillin-allergic patient regimen (clindamycin, extended-spectrum fluoroquinolone, or doxycycline) [ ]iv) Resistant organism (eg, methicillin-resistant Staphylococcus aureus) regimen (6) [ ]c) Outpatient intravenous therapy regimen is not appropriate due to ANY ONE of the following. (7)(8)(9)(10): [ ]i) It was tried and was not successful (eg, progression of infection). [ ]ii) It is not available or cannot be arranged in a clinically appropriate time frame (e.g., the next day). [ ]iii) Clinical presentation (eg, acuity of infection, rapidity of progression, confirmed or suspected bacteremia) is judged to require ALL of the following: [ ]1) Immediate initiation of intravenous therapy ( eg, cannot wait for next day) [ ]2) Intensity of patient monitoring and observation (eg, vital sign measurement, checks for infection progression) that cannot be provided at other than inpatient level of care [ ]IV. Mental status changes [ ]V. Bacteremia [ ]. Hemodynamic instability [ ]VII. Suspected necrotizing soft tissue infection (e.g., gas in tissue)(11)( 12) [ ]VIII. Orbital infection (13)(14) [ ]IX. Associated surgical procedure (e.g., abscess drainage, debridement) not amenable to outpatient, emergency department, or observation care [ ]X. Cutaneous gangrene [ ]XI. High fever (temperature greater than 39.5 degrees C (103.1 degrees F) (oral)) not responsive to outpatient, emergency department, or observation care therapy [X]XIII. Inpatient admission required rather than observation care (Also use Cellulitis: Observation Care as appropriate) because of ANY ONE of the following : [ ]a) Periorbital or perineal infection that is severe or worsening [X]b) Severe pain requiring acute inpatient management [ ]c) IV fluid to replace significant ongoing (e.g., for over 24 hours) losses (greater than 3L/m2 per day) [ ]d) Compartment syndrome monitoring (17) [ ]e) Strict or protective (eg, laminar flow) isolation [ ]f) Urgent debridement or skin grafting [ ]g) Bone or joint debridement [ ]h) Immediate inpatient surgery [ ]i) Other condition, treatment or monitoring requiring inpatient admission Extended stay beyond goal length of stay may be needed for (1)(18): [ ]a) Necrotizing soft tissue infection or fasciitis [ ]b) Gram-negative infection [ ]c) Methicillin-resistant Staphylococcal aureus (MRSA) infection [ ]d) Peripheral venous insufficiency with cellulitis [ ]e) Extensive edema [ ]f) Sepsis or continued Hemodynamic instability [ ]g) Continued high fever or mental status change [ ]h) Bacteremia [ ]i) Active serious comorbid conditions ( eg, heart failure, renal insufficiency) The original [employer] content created by [employer] has been revised. The portions of the content which have been revised are identified through the use of italic text or in bold, and [facility] has neither reviewed nor approved the modified material. All other unmodified content is copyright [employer] Please see references footnoted in the original [employer] edition 2016 Admission Criteria Met?: Yes EPI ANTONIO December 24, 2016 05:22
[2016-12-24] MEDS: HYDROmorphone 2 MG/ML VIAL IV PRN ×5 (05:27→21:12)
[2016-12-24 07:45] VITALS: BP 137/82
--- NOTE | 2016-12-24 07:45 | RAD ---
Indication infection associated with the left thumb. AP oblique and lateral views of the left hand were obtained. Note is made of a previous examination 11/28/2016. The patient is status post amputation at the interphalangeal joint of the thumb. An acute bony finding is not seen. Definite plain film findings of osteomyelitis are not seen. There is some slight soft tissue swelling over the radial side of the hand and involving the thumb. IMPRESSION: No acute bony abnormality seen
[2016-12-24] MEDS ORDERED: INSULIN ASPART 300 UNITS/3 ML INSULN.PEN SQ SCH ×3 (08:00→12:45)
[2016-12-24] MEDS: INSULIN ASPART 300 UNITS/3 ML INSULN.PEN SQ SCH ×5 (08:28→17:15)
[2016-12-24] MEDS ORDERED: DIAZ5TAB4 PO (08:34)
--- NOTE | 2016-12-24 08:39 | PDOC ---
Infectious Disease Note Vital Sign Vital Signs Vital Signs Date Time Temp Pulse Resp B/P (MAP) Pulse Ox O2 Delivery O2 Flow Rate FiO2 12/24/16 07:45 97.9 103 20 137/82 (100) 97 Room Air 97.9 Labs Lab Laboratory Tests Test 12/24/16 02:24 12/24/16 03:25 12/24/16 07:47 Glucose (Fingerstick) 479 mg/dL (70-99) 264 mg/dL (70-99) White Blood Count 5.2 x10^3/uL (4.0-11.0) Red Blood Count 4.28 x10^6/uL (3.50-5.40) Hemoglobin 10.5 g/dL (12.0-15.5) Hematocrit 32.7 % (36.0-47.0) Mean Corpuscular Volume 76 fL (79-100) Mean Corpuscular Hemoglobin 25 pg (25-35) Mean Corpuscular Hemoglobin Concent 32 g/dL (31-37) Red Cell Distribution Width 17.3 % (11.5-14.5) Platelet Count 224 x10^3/uL (140-400) Neutrophils (%) (Auto) 54 % (31-73) Lymphocytes (%) (Auto) 37 % (24-48) Monocytes (%) (Auto) 7 % (0-9) Eosinophils (%) (Auto) 2 % (0-3) Basophils (%) (Auto) 0 % (0-3) Neutrophils # (Auto) 2.8 x10^3uL (1.8-7.7) Lymphocytes # (Auto) 1.9 x10^3/uL (1.0-4.8) Monocytes # (Auto) 0.3 x10^3/uL (0.0-1.1) Eosinophils # (Auto) 0.1 x10^3/uL (0.0-0.7) Basophils # (Auto) 0.0 x10^3/uL (0.0-0.2) Sodium Level 134 mmol/L (136-145) Potassium Level 4.7 mmol/L (3.5-5.1) Chloride Level 99 mmol/L (98-107) Carbon Dioxide Level 20 mmol/L (21-32) Anion Gap 15 (6-14) Blood Urea Nitrogen 10 mg/dL (7-20) Creatinine 0.9 mg/dL (0.6-1.0) Estimated GFR (Cockcroft-Gault) 74.6 Glucose Level 532 mg/dL (70-99) Lactic Acid Level 3.9 mmol/L (0.4-2.0) Calcium Level 8.8 mg/dL (8.5-10.1) C-Reactive Protein, Quantitative 13.9 mg/L (0-3.3) Acetone Level Neg (NEG) Objective Assessment Left thumb amp site infection Lactic acidosis Poorly controlled DM Cellulitis Plan Plan of Care zyvox and cefepime check cultures YUSRA FERRER MD December 24, 2016 08:39
[2016-12-24] MEDS: CEFEPIME HCL 1 GM in IV NORMAL SALINE 50ML 50 ML IV SCH ×3 (09:18→21:12)
[2016-12-24 11:00] VITALS: BP 158/102
[2016-12-24] MEDS ORDERED: DOCUSATE SODIUM 100 MG CAPSULE. PO PRN (12:30)
[2016-12-24] MEDS ORDERED: MORPHINE SULFATE 2 MG/ML DISP.SYRIN. IV PRN (12:30)
[2016-12-24] MEDS ORDERED: ACETAMINOPHEN 325 MG TABLET. PO PRN (12:30)
[2016-12-24] MEDS ORDERED: traMADol 50 MG TABLET PO PRN (12:30)
[2016-12-24] MEDS ORDERED: hydrALAZINE 20 MG/ML VIAL. IVP PRN (12:30)
[2016-12-24] MEDS ORDERED: HEPARIN PF 500 UNIT/5 ML DISP.SYRIN. IV ONE ×2 (13:48→14:45)
[2016-12-24] MEDS ORDERED: LIDOCAINE 1%/EPI 1:100,000 20 ML VIAL. ONE (13:48)
[2016-12-24] MEDS ORDERED: VANCOMYCIN 1GM IVPB FOR OMNI 250 ML ONE (13:55)
[2016-12-24] MEDS ORDERED: MIDAZOLAM HCL/PF 5 MG/5 ML VIAL. ONE (13:56)
[2016-12-24] MEDS ORDERED: MORPHINE SULFATE 4 MG/ML DISP.SYRIN. ONE (13:57)
--- NOTE | 2016-12-24 14:00 | PDOC1 ---
History and Physical Date of Admission Date of Admission 12/24/16 Identification/Chief Complaint Chief Complaint left thumb pain, swollen Problems: Source Source: Chart review, Patient History of Present Illness History of Present Illness HPI Patient is a 26 year old female who presents with redness, swelling and increased pain to left thumb for 2 days. Pt was here a few month ago for uncontrolled dm1, when she got iv through her left thumb. Since then she started to have the pain and came back for the infection, for which she got I and D by dr. Elias. Then she cont having pain, and she got distal amputation approx 2 weeks ago (at outside facility in [place]), where her parents stay. She was told to cont bactrim and levaquin for another 1month , cannot tell me whether the infection was cleaned well by ortho there, but said the finger was ok , till 2 days ago, with swelling, erythema, and pus exudate, pain. Denies fever, chills. + nausea. no chest pain, sob. states that she controlled DM well. She is a very difficult IV stick notoriously and states "I was suppose to get a PORT the last time I was admitted, but they cancelled it." Past Medical History Cardiovascular: HTN Psych: Anxiety Endocrine: Diabetes, Other Past Surgical History Past Surgical History: Appendectomy, Cholecystectomy, , Other Family History Family History: No Significant, Other Family History: Parent Social History Smoke: No ALCOHOL: none Drugs: None Current Problem List Problem List Problems Medical Problems: (1) Diabetes mellitus type 1 Status: Acute (2) Hyperglycemia due to type 1 diabetes mellitus Status: Acute (3) Nausea & vomiting Status: Acute (4) Recurrent cellulitis Status: Acute Current Medications Current Medications Current Medications Medications (Trade) Dose Ordered Sig/Naya Start Time Stop Time Status Last Admin Dose Admin Acetaminophen (Tylenol) 650 mg PRN Q6HRS PRN 12/24/16 12:30 Cefepime HCl 1 gm/ Sodium Chloride 50 ml @ 100 mls/hr Q8HRS 12/24/16 09:00 12/24/16 09:18 100 MLS/HR Dextrose (Dextrose 50%-Water Syringe) 12.5 gm PRN Q15MIN PRN 12/24/16 04:45 Diazepam (Valium) 5 mg PRN Q6HRS PRN 12/24/16 12:30 Docusate Sodium (Colace) 100 mg PRN DAILY PRN 12/24/16 12:30 Heparin Sodium (Porcine) (Hep Lock Adult) 500 unit STK-MED ONCE 12/24/16 13:48 12/24/16 13:49 DC Heparin Sodium/ Sodium Chloride 500 ml @ As Directed STK-MED ONCE 12/24/16 13:48 12/24/16 13:49 DC Hydralazine HCl (Apresoline) 10 mg PRN Q4HRS PRN 12/24/16 12:30 Hydromorphone HCl (Dilaudid) 1 mg PRN Q4HRS PRN 12/24/16 05:00 12/24/16 13:07 1 MG Insulin Aspart (NovoLOG) 35 units TIDAC 12/24/16 12:45 Insulin Detemir (Levemir) 80 units QHS 12/24/16 21:00 12/24/16 21:00 DC Insulin Human Regular (NovoLIN R VIAL) 20 unit 1X ONCE 12/24/16 05:00 12/24/16 05:01 DC 12/24/16 05:29 20 UNIT Lidocaine/ Epinephrine (Xylocaine 1%-Epi 1:100,000) 20 ml STK-MED ONCE 12/24/16 13:48 12/24/16 13:49 DC Linezolid (Zyvox) 600 mg BID 12/24/16 04:00 12/24/16 03:48 600 MG Morphine Sulfate 2 mg PRN Q2HR PRN 12/24/16 12:30 Ondansetron HCl (Zofran) 4 mg PRN Q6HRS PRN 12/24/16 12:30 Sodium Chloride 1,000 ml @ 125 mls/hr 1X ONCE 12/24/16 05:00 12/24/16 12:59 DC 12/24/16 05:18 125 MLS/HR Tramadol HCl (Ultram) 50 mg PRN Q6HRS PRN 12/24/16 12:30 Trazodone HCl (Desyrel) 100 mg QHS 12/24/16 21:00 Allergies Allergies Allergies Coded Allergies Type Severity Reaction Last Updated Verified Penicillins Allergy Severe ANAPHYLAXIS, cefepime ok 11/12/16 Yes codeine Allergy Intermediate Tolerates Dilaudid, MORPHINE 11/12/16 Yes doxycycline Allergy Intermediate 11/12/16 Yes fentanyl Allergy Intermediate 11/12/16 Yes hydrocodone Adverse Reaction Intermediate itching 11/12/16 Yes ROS Review of System CONSTITUTIONAL: No fever or chills EYES: No recent changes SKIN: No rash or itching CARDIOVASCULAR: No chest pain, syncope, palpitations, or edema RESPIRATORY: No SOB or cough GASTROINTESTINAL: No nausea, vomiting or abdominal pain NEUROLOGICAL: No headaches or weakness ENDOCRINE: No cold or heat intolerance GENITOURINARY: No urgency or frequency of urination MUSCULOSKELETAL: No back pain or joint pain LYMPHATICS: No enlarged lymph nodes PSYCHIATRIC: No anxiety or depression Physical Exam Physical Exam GEN.: No apparent distress. Alert and oriented. HEENT: Head is normocephalic, atraumatic NECK: Supple. LUNGS: Clear to auscultation. HEART: RRR, S1, S2 present. Peripheral pulses intact ABDOMEN: Soft, nontender. Positive bowel sounds. EXTREMITIES: Without any cyanosis. LEFT thumb post distal amputation, swelling, mild exudate, tenderness, erythematous. NEUROLOGIC: Normal speech, normal tone PSYCHIATRIC: Normal affect, normal mood. SKIN: No ulcerations Vitals Vitals Vital Signs Date Time Temp Pulse Resp B/P (MAP) Pulse Ox O2 Delivery O2 Flow Rate FiO2 12/24/16 13:07 16 Room Air 12/24/16 11:00 97.8 105 158/102 (120) 100 97.8 Labs Labs Laboratory Tests Test 12/24/16 02:24 12/24/16 03:25 12/24/16 07:47 12/24/16 12:05 Glucose (Fingerstick) 479 mg/dL (70-99) 264 mg/dL (70-99) 225 mg/dL (70-99) White Blood Count 5.2 x10^3/uL (4.0-11.0) Red Blood Count 4.28 x10^6/uL (3.50-5.40) Hemoglobin 10.5 g/dL (12.0-15.5) Hematocrit 32.7 % (36.0-47.0) Mean Corpuscular Volume 76 fL (79-100) Mean Corpuscular Hemoglobin 25 pg (25-35) Mean Corpuscular Hemoglobin Concent 32 g/dL (31-37) Red Cell Distribution Width 17.3 % (11.5-14.5) Platelet Count 224 x10^3/uL (140-400) Neutrophils (%) (Auto) 54 % (31-73) Lymphocytes (%) (Auto) 37 % (24-48) Monocytes (%) (Auto) 7 % (0-9) Eosinophils (%) (Auto) 2 % (0-3) Basophils (%) (Auto) 0 % (0-3) Neutrophils # (Auto) 2.8 x10^3uL (1.8-7.7) Lymphocytes # (Auto) 1.9 x10^3/uL (1.0-4.8) Monocytes # (Auto) 0.3 x10^3/uL (0.0-1.1) Eosinophils # (Auto) 0.1 x10^3/uL (0.0-0.7) Basophils # (Auto) 0.0 x10^3/uL (0.0-0.2) Sodium Level 134 mmol/L (136-145) Potassium Level 4.7 mmol/L (3.5-5.1) Chloride Level 99 mmol/L (98-107) Carbon Dioxide Level 20 mmol/L (21-32) Anion Gap 15 (6-14) Blood Urea Nitrogen 10 mg/dL (7-20) Creatinine 0.9 mg/dL (0.6-1.0) Estimated GFR (Cockcroft-Gault) 74.6 Glucose Level 532 mg/dL (70-99) Lactic Acid Level 3.9 mmol/L (0.4-2.0) Calcium Level 8.8 mg/dL (8.5-10.1) C-Reactive Protein, Quantitative 13.9 mg/L (0-3.3) Acetone Level Neg (NEG) Laboratory Tests Test 12/24/16 02:24 12/24/16 03:25 12/24/16 07:47 12/24/16 12:05 Glucose (Fingerstick) 479 mg/dL (70-99) 264 mg/dL (70-99) 225 mg/dL (70-99) White Blood Count 5.2 x10^3/uL (4.0-11.0) Red Blood Count 4.28 x10^6/uL (3.50-5.40) Hemoglobin 10.5 g/dL (12.0-15.5) Hematocrit 32.7 % (36.0-47.0) Mean Corpuscular Volume 76 fL (79-100) Mean Corpuscular Hemoglobin 25 pg (25-35) Mean Corpuscular Hemoglobin Concent 32 g/dL (31-37) Red Cell Distribution Width 17.3 % (11.5-14.5) Platelet Count 224 x10^3/uL (140-400) Neutrophils (%) (Auto) 54 % (31-73) Lymphocytes (%) (Auto) 37 % (24-48) Monocytes (%) (Auto) 7 % (0-9) Eosinophils (%) (Auto) 2 % (0-3) Basophils (%) (Auto) 0 % (0-3) Neutrophils # (Auto) 2.8 x10^3uL (1.8-7.7) Lymphocytes # (Auto) 1.9 x10^3/uL (1.0-4.8) Monocytes # (Auto) 0.3 x10^3/uL (0.0-1.1) Eosinophils # (Auto) 0.1 x10^3/uL (0.0-0.7) Basophils # (Auto) 0.0 x10^3/uL (0.0-0.2) Sodium Level 134 mmol/L (136-145) Potassium Level 4.7 mmol/L (3.5-5.1) Chloride Level 99 mmol/L (98-107) Carbon Dioxide Level 20 mmol/L (21-32) Anion Gap 15 (6-14) Blood Urea Nitrogen 10 mg/dL (7-20) Creatinine 0.9 mg/dL (0.6-1.0) Estimated GFR (Cockcroft-Gault) 74.6 Glucose Level 532 mg/dL (70-99) Lactic Acid Level 3.9 mmol/L (0.4-2.0) Calcium Level 8.8 mg/dL (8.5-10.1) C-Reactive Protein, Quantitative 13.9 mg/L (0-3.3) Acetone Level Neg (NEG) VTE Prophylaxis Ordered VTE Prophylaxis Devices: Yes VTE Pharmacological Prophylaxi: Yes Assessment/Plan Assessment/Plan 1. left thumb recurrent cellulitis, post recent amputation 2. uncontrolled dm1 3. h/o MRSA 4. MORBID Obesity 5. fatty liver 6. anxiety 7. anemia, likely 2/2 inflammation plan: id consulted, on cefepime and zyvox will get ortho consult fu bcx MRI left thumb cont home meds on levemir 85u bid, aspart 35u tid, ssi dvt ppx pain control KENNY MELENDEZ MD December 24, 2016 14:00
[2016-12-24] MEDS ORDERED: diphenhydrAMINE 50 MG/ML VIAL ONE (14:01)
[2016-12-24] MEDS ORDERED: CLINDAMYCIN 600MG PREMIX 50 ML IV ONE ×2 (14:01→15:15)
[2016-12-24] MEDS ORDERED: LIDOCAINE 1%/EPI 1:100,000 20 ML VIAL. INJ ONE (14:45)
[2016-12-24] MEDS ORDERED: MIDAZOLAM HCL/PF 5 MG/5 ML VIAL. IV ONE (14:45)
[2016-12-24] MEDS ORDERED: VANCOMYCIN 1GM IVPB FOR OMNI 250 ML IV ONE (14:45)
[2016-12-24] MEDS ORDERED: MORPHINE SULFATE 4 MG/ML DISP.SYRIN. IV ONE (14:45)
[2016-12-24] MEDS ORDERED: diphenhydrAMINE 50 MG/ML VIAL IVP ONE (14:45)
[2016-12-24 15:00] VITALS: BP 142/91
--- NOTE | 2016-12-24 15:23 | PDOC ---
MODERATE SEDATION ASSESSMENT RISKS/ALTERNATIVES Risks/Alternatives Risks and alternatives of this type of sedation and procedure discussed with: RISK/ALTERNATIVES: Patient H & P ON CHART H & P H & P on chart and reviewed for co-morbid conditions and appropriate labs. H&P ON CHART: Yes STATUS PREG STATUS ASSESSED: Yes MEDS/ALLERGIES REVIEWED Meds/Allergies Reviewed Medications and Allergies including time and route of recently administered narcotics and sedatives. MEDS/ALLERGIES REVIEWED: Yes ASA RATING ASA RATING: II AIRWAY ASSESSMENT Airway Assessment Airway patency, oral function limitations, presence of caps, crowns, dentures, partials, and ability to extend neck assessed. AIRWAY ASSESSMENT: Yes MALLAMPATI SCORE MALLAMPATI SCORE: III PRE-SEDATION ASSESSMENT PRE-SEDATION ASSESSMENT: Yes HORACE GALLEGOS MD December 24, 2016 15:23
--- NOTE | 2016-12-24 15:26 | PDOC ---
Exam Rod Tape Operator Rod Tape Operator Elizabeth Regional Environmental Manager Regional Environmental Manager Toby Cates Pre-Procedure Diagnosis Pre-Procedure Diagnosis 26 YO female with poorly controlled diabetes. Left thump amputation site infection, with lactic acidosis. Very tenuous peripheral IV access. Very frequent ED visits and hospital admissions, often requiring IV Abx. Port insertion has been requested to provide usp IV access. Post-Procedure Diagnosis Post-Procedure Diagnosis Same Procedure Performed Procedure Performed Sono/fluoro guided Power Port insertion Type of Anesthesia Type of Anesthesia Local + Mod sedation Estimated Blood Loss EBL: Minimal Drain/Tubes Drains/Tubes Right IJ 8F tunneled Power Port Condition of Patient Condition of Patient Stable. No apparent complication. Disposition Disposition From IR return to [facility]. OK to use Power Port for blood draws and infusions. Full report to follow. HORACE GALLEGOS MD December 24, 2016 15:26
[2016-12-24] MEDS: ENOXAPARIN 40 MG/0.4 ML SYRINGE. SQ SCH (15:33)
--- NOTE | 2016-12-24 18:21 | PDOC2 ---
CONSULT Date of Consult Date of Consult DATE: 12/24/16 TIME: 18:11 Identification/Chief Complaint Chief Complaint left thumb cellulitis Source Source: Chart review, Patient History of Present Illness Reason for Visit: 26 year old with complications that began with an IV start in the thumb. She developed distal phalanx osteomyelitis and septic joint of the IP joint (from her description) and underwent partial thumb amputation 16 days ago in [place]. She started having increased redness and swelling 2 days ago, and increased pain. Past Medical History Cardiovascular: HTN Psych: Anxiety Endocrine: Diabetes, Other Past Surgical History Past Surgical History: Appendectomy, Cholecystectomy, , Other Family History Family History: No Significant, Other Social History Social History: Parent No ALCOHOL: none Drugs: None Lives: with Family Current Problem List Problem List Problems Medical Problems: (1) Diabetes mellitus type 1 Status: Acute (2) Hyperglycemia due to type 1 diabetes mellitus Status: Acute (3) Nausea & vomiting Status: Acute (4) Recurrent cellulitis Status: Acute Current Medications Current Medications Current Medications Ondansetron HCl (Zofran) 4 mg 1X ONCE IV Last administered on 12/24/16 03:47 ; Start 12/24/16 at 04:00; Stop 12/24/16 at 04:01; Status DC Sodium Chloride 1,000 ml @ 1,000 mls/hr 1X ONCE IV Last administered on 03:47; Start 12/24/16 at 04:00; Stop 12/24/16 at 04:59; Status DC Linezolid (Zyvox) 600 mg BID PO Last administered on 12/24/16 03:48; Start at 04:00 Hydromorphone HCl (Dilaudid) 1 mg 1X ONCE IV Last administered on 12/24/16 03 :48; Start 12/24/16 at 04:00; Stop 12/24/16 at 04:01; Status DC Insulin Human Regular (NovoLIN R VIAL) 20 unit 1X ONCE IV Last administered on 12/24/16 05:29; Start 12/24/16 at 05:00; Stop 12/24/16 at 05:01; Status DC Ondansetron HCl (Zofran) 4 mg PRN Q8HRS PRN IV NAUSEA/VOMITING Last administered on 12/24/16 13:07; Start 12/24/16 at 04:45; Stop 12/24/16 at 15:59 ; Status DC Sodium Chloride 1,000 ml @ 125 mls/hr 1X ONCE IV Last administered on 05:18; Start 12/24/16 at 05:00; Stop 12/24/16 at 12:59; Status DC Insulin Detemir (Levemir) 10 units QHS SQ ; Start 12/24/16 at 21:00; Stop at 21:00; Status DC Insulin Aspart (NovoLOG) 0-5 UNITS TIDWMEALS SQ ; Start 12/24/16 at 08:00; Status UNV Insulin Aspart (NovoLOG) 0-7 UNITS TIDWMEALS SQ Last administered on 12/24/16 17:15; Start 12/24/16 at 08:00 Insulin Aspart (NovoLOG) 0-9 UNITS TIDWMEALS SQ ; Start 12/24/16 at 08:00; Status UNV Dextrose (Dextrose 50%-Water Syringe) 12.5 gm PRN Q15MIN PRN IV SEE COMMENTS; Start 12/24/16 at 04:45 Hydromorphone HCl (Dilaudid) 1 mg PRN Q4HRS PRN IV SEVERE PAIN Last administered on 12/24/16 17:09; Start 12/24/16 at 05:00 Cefepime HCl 1 gm/ Sodium Chloride 50 ml @ 100 mls/hr Q8HRS IV Last administered on 12/24/16 15:32; Start 12/24/16 at 09:00 Diazepam (Valium) 5 mg PRN Q6HRS PRN PO ANXIETY / AGITATION; Start 12/24/16 at 12:30 Insulin Aspart (NovoLOG) 45 units TIDAC SQ ; Start 12/24/16 at 12:45; Stop 12/24 at 12:45; Status DC Insulin Detemir (Levemir) 85 units BID SQ ; Start 12/24/16 at 21:00 Tramadol HCl (Ultram) 50 mg Q6H PRN PO PAIN; Start 12/24/16 at 12:30; Stop at 12:33; Status DC Trazodone HCl (Desyrel) 100 mg QHS PO ; Start 12/24/16 at 21:00 Insulin Detemir (Levemir) 80 units QHS SQ ; Start 12/24/16 at 21:00; Stop at 21:00; Status DC Acetaminophen (Tylenol) 650 mg PRN Q6HRS PRN PO FEVER; Start 12/24/16 at 12:30 Ondansetron HCl (Zofran) 4 mg PRN Q6HRS PRN IV NAUSEA/VOMITING; Start 12/24/16 at 12:30 Morphine Sulfate 2 mg PRN Q2HR PRN IV PAIN; Start 12/24/16 at 12:30 Tramadol HCl (Ultram) 50 mg PRN Q6HRS PRN PO PAIN; Start 12/24/16 at 12:30 Hydralazine HCl (Apresoline) 10 mg PRN Q4HRS PRN IVP ELEVATED BP, SEE COMMENTS ; Start 12/24/16 at 12:30 Docusate Sodium (Colace) 100 mg PRN DAILY PRN PO CONSTIPATION; Start 12/24/16 at 12:30 Insulin Aspart (NovoLOG) 35 units TIDAC SQ Last administered on 12/24/16 17:14 ; Start 12/24/16 at 12:45 Heparin Sodium (Porcine) (Hep Lock Adult) 500 unit STK-MED ONCE IV ; Start 12/24 at 13:48; Stop 12/24/16 at 13:49; Status DC Lidocaine/ Epinephrine (Xylocaine 1%-Epi 1:100,000) 20 ml STK-MED ONCE .ROUTE ; Start 12/24/16 at 13:48; Stop 12/24/16 at 13:49; Status DC Heparin Sodium/ Sodium Chloride 500 ml @ As Directed STK-MED ONCE .ROUTE ; Start 12/24/16 at 13:48; Stop 12/24/16 at 13:49; Status DC Enoxaparin Sodium (Lovenox 40mg Syringe) 40 mg DAILY16 SQ Last administered on 12/24/16t 15:33; Start 12/24/16 at 16:00 Vancomycin HCl 250 ml @ As Directed STK-MED ONCE .ROUTE ; Start 12/24/16 at 13: 55; Stop 12/24/16 at 13:56; Status DC Midazolam HCl (Versed) 5 mg STK-MED ONCE .ROUTE ; Start 12/24/16 at 13:56; Stop 12/24/16 at 13:57; Status DC Morphine Sulfate 4 mg STK-MED ONCE .ROUTE ; Start 12/24/16 at 13:57; Stop at 13:58; Status DC Clindamycin Phosphate 50 ml @ As Directed STK-MED ONCE IV ; Start 12/24/16 at 14 :01; Stop 12/24/16 at 14:02; Status DC Diphenhydramine HCl (Benadryl) 50 mg STK-MED ONCE .ROUTE ; Start 12/24/16 at 14: 01; Stop 12/24/16 at 14:02; Status DC Heparin Sodium/ Sodium Chloride 1,000 unit 1X ONCE IART Last administered on 15:13; Start 12/24/16 at 14:45; Stop 12/24/16 at 14:47; Status DC Midazolam HCl (Versed) 5 mg 1X ONCE IV Last administered on 12/24/16 15:12; Start 12/24/16 at 14:45; Stop 12/24/16 at 14:47; Status DC Lidocaine/ Epinephrine (Xylocaine 1%-Epi 1:100,000) 20 ml 1X ONCE INJ Last administered on 12/24/16 15:13; Start 12/24/16 at 14:45; Stop 12/24/16 at 14:47 ; Status DC Vancomycin HCl 250 ml @ 250 mls/hr 1X ONCE IV Last administered on 12/24/16 15:14; Start 12/24/16 at 14:45; Stop 12/24/16 at 15:44; Status DC Morphine Sulfate 12 mg 1X ONCE IV Last administered on 12/24/16 15:13; Start 12/24/16 at 14:45; Stop 12/24/16 at 14:47; Status DC Heparin Sodium (Porcine) (Hep Lock Adult) 500 unit 1X ONCE IV ; Start 12/24/16 at 14:45; Stop 12/24/16 at 14:47; Status DC Diphenhydramine HCl (Benadryl) 50 mg 1X ONCE IVP Last administered on 15:12; Start 12/24/16 at 14:45; Stop 12/24/16 at 14:47; Status DC Clindamycin Phosphate 50 ml @ 100 mls/hr 1X ONCE IV Last administered on 5/25 /17at 14:14; Start 12/24/16 at 15:15; Stop 12/24/16 at 15:44; Status DC Active Scripts Active Sulfamethoxazole-Tmp Ds Tablet (Sulfamethoxazole/Trimethoprim) 1 Each Tablet 1 Tab PO BID 7 Days Levemir Flextouch (Insulin Detemir) 100 Unit/1 Ml Insuln.pen 85 Units SQ BID 30 Days Novolog Flexpen (Insulin Aspart) 100 Unit/1 Ml Insuln.pen 45 Units SQ TIDAC 30 Days Ultram (Tramadol Hcl) 50 Mg Tablet 50 Mg PO Q6H PRN Reported Diazepam 5 Mg Tablet 5 Mg PO PRN Q6HRS Trazodone Hcl 100 Mg Tablet 1 Tab PO QHS Allergies Allergies: Coded Allergies: Penicillins (Verified Allergy, Severe, ANAPHYLAXIS, cefepime ok, 11/12/16) codeine (Verified Allergy, Intermediate, Tolerates Dilaudid, MORPHINE, ) doxycycline (Verified Allergy, Intermediate, 11/12/16) fentanyl (Verified Allergy, Intermediate, 11/12/16) hydrocodone (Verified Adverse Reaction, Intermediate, itching, 11/12/16) ROS Gastrointestinal: Yes Vomiting Physical Exam General: Alert, Cooperative HEENT: Atraumatic Lungs: Normal air movement Heart: Regular rate Abdomen: Soft Extremities: Other (left thumb with retained sutures and volar flap thumb amputation of the distal phalanx, with remaining proximal phalanx. Slight raised areas 1-2 cm proximal to incision appears to be mild cellulitis. The patient reports purulent drainage, but I see none, and no evidence on exam of abscess. She has mild cellulitis, no dehiscence. There is tenderness, which according to her is increased.) Vitals VITALS Vital Signs Date Time Temp Pulse Resp B/P (MAP) Pulse Ox O2 Delivery O2 Flow Rate FiO2 12/24/16 17:27 14 Room Air 12/24/16 15:13 98 12/24/16 15:00 98.6 111 142/91 (108) 98.6 Labs Labs Laboratory Tests Test 12/24/16 02:24 12/24/16 03:25 12/24/16 07:47 12/24/16 12:05 Glucose (Fingerstick) 479 mg/dL (70-99) 264 mg/dL (70-99) 225 mg/dL (70-99) White Blood Count 5.2 x10^3/uL (4.0-11.0) Red Blood Count 4.28 x10^6/uL (3.50-5.40) Hemoglobin 10.5 g/dL (12.0-15.5) Hematocrit 32.7 % (36.0-47.0) Mean Corpuscular Volume 76 fL (79-100) Mean Corpuscular Hemoglobin 25 pg (25-35) Mean Corpuscular Hemoglobin Concent 32 g/dL (31-37) Red Cell Distribution Width 17.3 % (11.5-14.5) Platelet Count 224 x10^3/uL (140-400) Neutrophils (%) (Auto) 54 % (31-73) Lymphocytes (%) (Auto) 37 % (24-48) Monocytes (%) (Auto) 7 % (0-9) Eosinophils (%) (Auto) 2 % (0-3) Basophils (%) (Auto) 0 % (0-3) Neutrophils # (Auto) 2.8 x10^3uL (1.8-7.7) Lymphocytes # (Auto) 1.9 x10^3/uL (1.0-4.8) Monocytes # (Auto) 0.3 x10^3/uL (0.0-1.1) Eosinophils # (Auto) 0.1 x10^3/uL (0.0-0.7) Basophils # (Auto) 0.0 x10^3/uL (0.0-0.2) Sodium Level 134 mmol/L (136-145) Potassium Level 4.7 mmol/L (3.5-5.1) Chloride Level 99 mmol/L (98-107) Carbon Dioxide Level 20 mmol/L (21-32) Anion Gap 15 (6-14) Blood Urea Nitrogen 10 mg/dL (7-20) Creatinine 0.9 mg/dL (0.6-1.0) Estimated GFR (Cockcroft-Gault) 74.6 Glucose Level 532 mg/dL (70-99) Lactic Acid Level 3.9 mmol/L (0.4-2.0) Calcium Level 8.8 mg/dL (8.5-10.1) C-Reactive Protein, Quantitative 13.9 mg/L (0-3.3) Acetone Level Neg (NEG) Test 12/24/16 16:53 Glucose (Fingerstick) 297 mg/dL (70-99) Laboratory Tests Test 12/24/16 02:24 12/24/16 03:25 12/24/16 07:47 12/24/16 12:05 Glucose (Fingerstick) 479 mg/dL (70-99) 264 mg/dL (70-99) 225 mg/dL (70-99) White Blood Count 5.2 x10^3/uL (4.0-11.0) Red Blood Count 4.28 x10^6/uL (3.50-5.40) Hemoglobin 10.5 g/dL (12.0-15.5) Hematocrit 32.7 % (36.0-47.0) Mean Corpuscular Volume 76 fL (79-100) Mean Corpuscular Hemoglobin 25 pg (25-35) Mean Corpuscular Hemoglobin Concent 32 g/dL (31-37) Red Cell Distribution Width 17.3 % (11.5-14.5) Platelet Count 224 x10^3/uL (140-400) Neutrophils (%) (Auto) 54 % (31-73) Lymphocytes (%) (Auto) 37 % (24-48) Monocytes (%) (Auto) 7 % (0-9) Eosinophils (%) (Auto) 2 % (0-3) Basophils (%) (Auto) 0 % (0-3) Neutrophils # (Auto) 2.8 x10^3uL (1.8-7.7) Lymphocytes # (Auto) 1.9 x10^3/uL (1.0-4.8) Monocytes # (Auto) 0.3 x10^3/uL (0.0-1.1) Eosinophils # (Auto) 0.1 x10^3/uL (0.0-0.7) Basophils # (Auto) 0.0 x10^3/uL (0.0-0.2) Sodium Level 134 mmol/L (136-145) Potassium Level 4.7 mmol/L (3.5-5.1) Chloride Level 99 mmol/L (98-107) Carbon Dioxide Level 20 mmol/L (21-32) Anion Gap 15 (6-14) Blood Urea Nitrogen 10 mg/dL (7-20) Creatinine 0.9 mg/dL (0.6-1.0) Estimated GFR (Cockcroft-Gault) 74.6 Glucose Level 532 mg/dL (70-99) Lactic Acid Level 3.9 mmol/L (0.4-2.0) Calcium Level 8.8 mg/dL (8.5-10.1) C-Reactive Protein, Quantitative 13.9 mg/L (0-3.3) Acetone Level Neg (NEG) Test 12/24/16 16:53 Glucose (Fingerstick) 297 mg/dL (70-99) Images Images I reviewed the hand x-rays and report from 12/24/16. No evidence of osteomyelitis Assessment/Plan Assessment/Plan Left thumb cellulitis. Postop from left thumb amputation. Doubtful deep abscess or ongoing osteomyelitis, but MRI is planned so that should help to evaluate for abscess or osteomyelitis. If those are present, then further surgery is indicated. If not, then antibiotics for cellulitis (with history of MRSA, Vancomycin) would be recommended. Continue abx for now, and we will check on MRI results. XENIA ELAM MD December 24, 2016 18:21
[2016-12-24] MEDS: diazePAM 5 MG TABLET PO PRN (18:36)
[2016-12-24 19:29] VITALS: BP 126/84
[2016-12-24] MEDS ORDERED: INSULIN DETEMIR 300 UNITS/3 ML INSULN.PEN. SQ SCH ×2 (21:00)
[2016-12-24] MEDS: INSULIN DETEMIR 300 UNITS/3 ML INSULN.PEN. SQ SCH (21:18)
[2016-12-24 22:25] VITALS: BP 136/95
[2016-12-24] MEDS: traMADol 50 MG TABLET PO PRN (22:28)
[2016-12-24] MEDS: traZODone 100 MG TABLET. PO SCH (22:29)
[2016-12-25] MEDS: HYDROmorphone 2 MG/ML VIAL IV PRN ×5 (01:26→18:15)
[2016-12-25] MEDS: ONDANSETRON PF 4 MG/2 ML VIAL. IV PRN ×2 (01:26→09:08)
--- NOTE | 2016-12-25 02:31 | CONS ---
DATE OF CONSULTATION: 12/24/2016 REQUESTING PHYSICIAN: Dr. Granados. REASON FOR CONSULTATION: Thumb infection. HISTORY OF PRESENT ILLNESS: This is a 26-year-old female who has had a partial amputation of the left thumb done in [place] 2 weeks ago. The patient has had problem with that thumb here and the patient had I and D done in October and eventually, when she was in [place], she says it got worse and she ended up doing a partial amputation, that was done 2 weeks ago. The patient now admitted with more pain, swelling and some pus coming out from the incision, she says, and throwing up. The patient started on Zyvox and consult has been requested. The patient has not been doing any nausea, vomiting, or diarrhea here. Blood sugar was in 500. Lactic acid 3.9. Normal white count and normal temperature. The patient is hemodynamically stable. The patient, other than pain at the site and some redness and she says the pus came out, otherwise, she is okay. Denies any chest pain, shortness of breath, abdominal pain, headache, or visual symptoms. PAST MEDICAL HISTORY: Multiple admissions for poorly controlled blood sugar IV infiltration versus frostbite versus a subungual hematoma that caused her to a problem, I and D was done in October and now partial amputation of the distal thumb. Type 1 diabetes, history of MRSA, history of neuropathy, and chronic abdominal pain syndrome. PAST SURGICAL HISTORY: Has had appendicectomy, cholecystectomy, and oophorectomy. SOCIAL HISTORY: Negative for smoking, alcohol, or illicit drug use. ALLERGIES: LISTED ALLERGIC TO PENICILLIN WHICH CAUSES HER TO, SHE SAYS, SHE HAS ANAPHYLACTIC REACTION AND DOXYCYCLINE CAUSES RASH. CURRENT MEDICATIONS: Reviewed. The patient is on Zyvox. REVIEW OF SYSTEMS: As per HPI, all other systems were negative. PHYSICAL EXAMINATION: GENERAL: Alert, oriented female, not in distress. VITAL SIGNS: Stable, afebrile. HEENT: NAD. NECK: Supple, no JVD, no lymphadenopathy. LUNGS: Clear. CARDIOVASCULAR: S1, S2 regular. ABDOMEN: Benign. EXTREMITIES: No cyanosis. SKIN: Unremarkable. Thumb in particular left thumb area has a very well approximated skin. There is minimal erythema there. There is no purulence that I see right now. There is no wound dehiscence . It looks like a nicely healing amp site with minimal erythema in the surrounding area. NEUROLOGIC: The patient is neurologically intact. LABORATORY DATA: White count is 5.2, hemoglobin 10.5, platelets are normal. BUN and creatinine is normal. Blood sugar 532 with a bicarb 20, lactic acid 3.9. X-ray of the thumb was unremarkable other than amputation. IMPRESSION: 1. Left thumb postsurgical infection/cellulitis. 2. Lactic acidosis. 3. Poorly controlled diabetes. 4. Nausea and vomiting. RECOMMENDATIONS: Would continue Zyvox, add cefepime. We will check cultures if she does get pus as she says, we will culture it and blood culture has been done, we will check and continue to follow. Thank you very much, Dr. Granados for getting me opportunity to participate in this patient's care. YUSRA FERRER MD DR: DALE/ric JOB#: [id number] / [id number]
[2016-12-25 03:15] VITALS: BP 142/92
[2016-12-25] MEDS: CEFEPIME HCL 1 GM in IV NORMAL SALINE 50ML 50 ML IV SCH ×3 (05:46→21:20)
--- NOTE | 2016-12-25 06:02 | RAD ---
MRI left thumb without contrast HISTORY: Left thumb pain with history of infection with amputation of the thumb distal phalanx 3 weeks ago. TECHNIQUE: Multiplanar MRI sequences of the left thumb were acquired without contrast. FINDINGS: Postoperative changes of amputation of the thumb distal phalanx. There is extensive soft tissue edema about the residual thumb about the proximal phalanx and first metacarpal. Along the dorsal aspect of the thumb proximal phalanx and metacarpal phalangeal joint there is a 1 cm T2-weighted hyperintense fluid collection with mild heterogeneous T1 weighted hyperintensity typical of hematoma. There is mild bone edema at the head and distal shaft of the thumb proximal phalanx without complete loss of the normal T1 weighted fatty marrow signal. There is intramuscular edema of the flexor pollicis brevis and abductor pollicis muscles. The flexor pollicis longus and extensor pollicis tendons are unremarkable. Small bone cyst at the trapezoid of the carpus noted. IMPRESSION: 1. Recent amputation of the thumb distal phalanx. Extensive soft tissue edema about the residual thumb be related to recent surgery or could indicate cellulitis. 1 cm fluid collection along the dorsal aspect of the thumb proximal phalanx and metacarpal phalangeal joint with T1 weighted imaging characteristics typical of a hematoma. A superinfected hematoma cannot be excluded. 2. Edema of the head and distal shaft of the residual thumb proximal phalanx, in the absence of a postsurgical osteotomy of this bone, this edema raises suspicion of osteomyelitis. 3. Muscle edema of the flexor pollicis brevis and abductor pollicis muscles, representing either denervation injury or myositis. Electronically signed by: Omar Rice MD (12/25/2016 5:59 AM)
[2016-12-25 06:10] LABS: BASO % 0 % (0-3); EOS % 3 % (0-3); HEMATOCRIT 33.7 % (36.0-47.0); HEMOGLOBIN 10.6 g/dL (12.0-15.5); LYMPH # 1.9 x10^3/uL (1.0-4.8); LYMPH % 33 % (24-48); MEAN CORPUSCULAR HEMOGLOBIN 24 pg (25-35); MEAN CORPUSCULAR HGB CONC 31 g/dL (31-37); MEAN CORPUSCULAR VOLUME 76 fL (79-100); MONO % 7 % (0-9); NEUT % 57 % (31-73); PLATELET COUNT 235 x10^3/uL (140-400); RED BLOOD COUNT 4.42 x10^6/uL (3.50-5.40); WHITE BLOOD COUNT 5.8 x10^3/uL (4.0-11.0)
[2016-12-25 06:20] LABS: CREATININE 0.7 mg/dL (0.6-1.0); GFR 99.6; POTASSIUM 4.4 mmol/L (3.5-5.1)
[2016-12-25 06:25] LABS: % SAT IRON 7 % (15-34); IRON,SERUM 29 ug/dL (50-170)
--- NOTE | 2016-12-25 06:58 | RAD ---
Ultrasound and fluoroscopy guided right IJ power port insertion Indication: 26-year-old female poorly controlled diabetic with left thumb amputation site infection and with lactic acidosis. She has had very frequent emergency department visits and hospital admissions over the last few years, many of which resulted in requirements for IV antibiotics. She has very tenuous peripheral IV access. Image guided power port insertion has been requested for long-term IV access. Fluoroscopy time: 1.1 minutes Kerma-area product: 3 Gycm2 Moderate sedation: 46 minutes moderate sedation was provided utilizing a total of 3.5 mg Versed and 8 mg morphine sulfate. The patient was appropriately monitored by a qualified independent observer throughout the course of moderate sedation. Antibiotic: A single dose of Clindamycin was administered within 1 hour of the procedure start time. Cephalosporin was withheld due to allergy. Consent: The procedure was explained in its entirety to the patient and/or the patient's designated business services sales representative by a member of the treatment team. This included a discussion of risks and benefits and commonly accepted alternatives to the procedure, as well as expected consequences of no treatment at all. Discussion of risks included, but was not limited to, those that are most frequent and those that are rare, but possibly severe or life-threatening, as well as the possibility of unforeseen complications. Sterility: All elements of maximal sterile barrier technique, hand hygiene, skin preparation, and, if ultrasound was used, sterile ultrasound technique were followed. Procedure: Informed consent was obtained from the patient. She was placed supine on the angiography table. Preliminary ultrasound examination of right neck revealed wide patency of right internal jugular vein, which was documented with a single hard copy ultrasound image. Right neck and upper chest were then prepped and draped in the usual sterile fashion, utilizing all elements of maximal sterile barrier technique, as described above. Moderate sedation was provided with IV Versed and morphine sulfate. 600 mg clindamycin was given IV, prophylactically. Using aseptic technique and local anesthesia, a small skin incision was made lateral to right internal jugular vein, just above clavicle. Using aseptic technique, local anesthesia, direct ultrasound guidance, and the micropuncture system, successful percutaneous entry was achieved into right internal jugular vein. The right IJ venostomy tract was then dilated and the 8 Nigerien catheter from a Bard power port system was easily advanced centrally through an 8.5 Nigerien peel-away sheath, and was positioned with this tip at the level of upper right atrium utilizing fluoroscopic guidance. A skin site suitable for placement of the power port body was then selected and marked along upper anterior aspect of right chest, overlying anterior aspect of right second rib. Using aseptic technique and local anesthesia, a horizontally oriented skin incision was made in this location. A subcutaneous chest wall pocket was then created and was packed with vancomycin soaked gauze. A subcutaneous tunnel was then fashioned between the chest wall pocket and the initial supraclavicular incision. The 8 Nigerien power port catheter was then pulled through the subcutaneous tunnel from superior to inferior, utilizing the tunneling device provided. The catheter was then trimmed to an appropriate length and was connected to the power port body, which had been previously flushed with, and soaked in, vancomycin solution. The vancomycin soaked gauze was then removed from the chest wall pocket, which was then copiously irrigated with vancomycin solution. The power port body was then easily introduced into the chest wall pocket and was secured in place utilizing two 2-0 Vicryl sutures. The power port was then accessed utilizing a Guy needle, was documented to flush and aspirate normally, and was packed with heparinized saline. The chest incision was then closed with 2-0 Vicryl, 4-0 Vicryl, Steri-Strips, and sterile dressing. The small supraclavicular incision was closed with 4-0 Vicryl, Steri-Strips, and sterile dressing. Patient tolerated the procedure well without apparent complication. Satisfactory position of the power port was confirmed with a single fluoroscopic spot image. Impression: Successful, uneventful ultrasound and fluoro guided placement of right IJ 8 Nigerien tunneled power port, as described.
[2016-12-25 07:00] VITALS: BP 136/80
[2016-12-25] MEDS: LINEZOLID 600 MG TABLET PO SCH ×2 (08:17→21:06)
[2016-12-25] MEDS: INSULIN ASPART 300 UNITS/3 ML INSULN.PEN SQ SCH ×7 (08:24→21:00)
[2016-12-25] MEDS: INSULIN DETEMIR 300 UNITS/3 ML INSULN.PEN. SQ SCH ×2 (08:25→21:10)
[2016-12-25] MEDS: traMADol 50 MG TABLET PO PRN ×2 (08:39→15:16)
[2016-12-25 08:46] LABS: FOLATE 12.32 ng/ml (3.2-20.0)
--- NOTE | 2016-12-25 10:33 | PDOC ---
Infectious Disease Note Subjective Subjective pt cont to c/o significant pain proximal to amp site ROS ROS GEN: Denies fevers, chills, sweats HEENT: Denies blurred vision, sore throat CV: Denies chest pain RESP: Denies shortness of air, cough GI: Denies n/v/d NEURO: Denies confusion, dizziness Vital Sign Vital Signs Vital Signs Date Time Temp Pulse Resp B/P (MAP) Pulse Ox O2 Delivery O2 Flow Rate FiO2 12/25/16 10:11 16 Room Air 12/25/16 07:00 98.1 100 136/80 (98) 100 98.1 Physical Exam PHYSICAL EXAM GENERAL: NAD, Alert HEENT: PERRL, OC/OP NECK: Supple, no JVD, no LN LUNGS: Clear HEART: S1S2, no gallop, no murmur ABD: Soft, NT, no organomegaly, no rebound EXT: No edema, no cyanosis,, left thumb amp site mild redness, no swelling, no discharge, well approximated incision [employer]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, oriented x 3, no focal neurologic deficit SKIN: No rash IV: ok Labs Lab Laboratory Tests Test 12/24/16 12:05 12/24/16 16:53 12/24/16 21:10 12/25/16 05:55 Glucose (Fingerstick) 225 mg/dL (70-99) 297 mg/dL (70-99) 223 mg/dL (70-99) White Blood Count 5.8 x10^3/uL (4.0-11.0) Red Blood Count 4.42 x10^6/uL (3.50-5.40) Hemoglobin 10.6 g/dL (12.0-15.5) Hematocrit 33.7 % (36.0-47.0) Mean Corpuscular Volume 76 fL (79-100) Mean Corpuscular Hemoglobin 24 pg (25-35) Mean Corpuscular Hemoglobin Concent 31 g/dL (31-37) Red Cell Distribution Width 17.0 % (11.5-14.5) Platelet Count 235 x10^3/uL (140-400) Neutrophils (%) (Auto) 57 % (31-73) Lymphocytes (%) (Auto) 33 % (24-48) Monocytes (%) (Auto) 7 % (0-9) Eosinophils (%) (Auto) 3 % (0-3) Basophils (%) (Auto) 0 % (0-3) Neutrophils # (Auto) 3.3 x10^3uL (1.8-7.7) Lymphocytes # (Auto) 1.9 x10^3/uL (1.0-4.8) Monocytes # (Auto) 0.4 x10^3/uL (0.0-1.1) Eosinophils # (Auto) 0.2 x10^3/uL (0.0-0.7) Basophils # (Auto) 0.0 x10^3/uL (0.0-0.2) Sodium Level 136 mmol/L (136-145) Potassium Level 4.4 mmol/L (3.5-5.1) Chloride Level 102 mmol/L (98-107) Carbon Dioxide Level 25 mmol/L (21-32) Anion Gap 9 (6-14) Blood Urea Nitrogen 8 mg/dL (7-20) Creatinine 0.7 mg/dL (0.6-1.0) Estimated GFR (Cockcroft-Gault) 99.6 Glucose Level 268 mg/dL (70-99) Calcium Level 9.0 mg/dL (8.5-10.1) Iron Level 29 ug/dL (50-170) Total Iron Binding Capacity 432 ug/dL (250-450) Iron Saturation 7 % (15-34) Ferritin 23 ng/mL (8-252) Vitamin B12 Level 390 pg/mL (247-911) Serum Folate 12.32 ng/ml (3.2-20.0) Test 12/25/16 08:00 Glucose (Fingerstick) 260 mg/dL (70-99) Micro BC neg Objective Assessment Left thumb amp site infection MRI noted, clinically does not appear to have infection/osteomyelitis Lactic acidosis Poorly controlled DM Cellulitis Plan Plan of Care zyvox and cefepime check cultures will await Dr Dennis recommendation and then decide d/w YUSRA Paris MD December 25, 2016 10:33
[2016-12-25 11:00] VITALS: BP 138/92
[2016-12-25] MEDS: FERROUS SULFATE 325 MG TABLET. PO SCH (11:47)
--- NOTE | 2016-12-25 12:44 | PDOC ---
PROGRESS NOTES Chief Complaint Chief Complaint 1. left thumb recurrent cellulitis, post recent amputation 2. uncontrolled dm1 3. h/o MRSA 4. MORBID Obesity 5. fatty liver 6. anxiety 7. 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 Renteria, and pt's left thumb doesnot appear clinically significantly infected History of Present Illness History of Present Illness cont c/o left thumb is swelling,erythema ( which is mild to me), tenderness glucose >200 all the time yesterday, when i told her i will check hba1c , pt got upset and kept stating her glucose is controlled well pt also said she didnot eat much, HOWEVER, as per nurse, she ordered several trays of food always MRI result seen Vitals Vitals Vital Signs Date Time Temp Pulse Resp B/P (MAP) Pulse Ox O2 Delivery O2 Flow Rate FiO2 12/25/16 11:00 98.5 107 18 138/92 (107) 97 Room Air 98.5 Physical Exam General: Alert, Cooperative Heart: Regular rate Lungs: Clear, Other Abdomen: Soft Extremities: Other (left thumb with retained sutures and volar flap thumb amputation of the distal phalanx, with remaining proximal phalanx. Slight raised areas 1-2 cm proximal to incision appears to be mild cellulitis. The patient reports purulent drainage, but I see none, and no evidence on exam of abscess. She has mild cellulitis, no dehiscence. There is tenderness, which according to her is increased.) Labs LABS Laboratory Tests Test 12/24/16 16:53 12/24/16 21:10 12/25/16 05:55 12/25/16 08:00 Glucose (Fingerstick) 297 mg/dL (70-99) 223 mg/dL (70-99) 260 mg/dL (70-99) White Blood Count 5.8 x10^3/uL (4.0-11.0) Red Blood Count 4.42 x10^6/uL (3.50-5.40) Hemoglobin 10.6 g/dL (12.0-15.5) Hematocrit 33.7 % (36.0-47.0) Mean Corpuscular Volume 76 fL (79-100) Mean Corpuscular Hemoglobin 24 pg (25-35) Mean Corpuscular Hemoglobin Concent 31 g/dL (31-37) Red Cell Distribution Width 17.0 % (11.5-14.5) Platelet Count 235 x10^3/uL (140-400) Neutrophils (%) (Auto) 57 % (31-73) Lymphocytes (%) (Auto) 33 % (24-48) Monocytes (%) (Auto) 7 % (0-9) Eosinophils (%) (Auto) 3 % (0-3) Basophils (%) (Auto) 0 % (0-3) Neutrophils # (Auto) 3.3 x10^3uL (1.8-7.7) Lymphocytes # (Auto) 1.9 x10^3/uL (1.0-4.8) Monocytes # (Auto) 0.4 x10^3/uL (0.0-1.1) Eosinophils # (Auto) 0.2 x10^3/uL (0.0-0.7) Basophils # (Auto) 0.0 x10^3/uL (0.0-0.2) Sodium Level 136 mmol/L (136-145) Potassium Level 4.4 mmol/L (3.5-5.1) Chloride Level 102 mmol/L (98-107) Carbon Dioxide Level 25 mmol/L (21-32) Anion Gap 9 (6-14) Blood Urea Nitrogen 8 mg/dL (7-20) Creatinine 0.7 mg/dL (0.6-1.0) Estimated GFR (Cockcroft-Gault) 99.6 Glucose Level 268 mg/dL (70-99) Calcium Level 9.0 mg/dL (8.5-10.1) Iron Level 29 ug/dL (50-170) Total Iron Binding Capacity 432 ug/dL (250-450) Iron Saturation 7 % (15-34) Ferritin 23 ng/mL (8-252) Vitamin B12 Level 390 pg/mL (247-911) Serum Folate 12.32 ng/ml (3.2-20.0) Test 12/25/16 11:39 Glucose (Fingerstick) 88 mg/dL (70-99) Review of Systems Review of Systems no fever, chills, sob or chest pain Assessment and Plan Assessmemt and Plan Problems Medical Problems: (1) Diabetes mellitus type 1 Status: Acute (2) Hyperglycemia due to type 1 diabetes mellitus Status: Acute (3) Nausea & vomiting Status: Acute (4) Recurrent cellulitis Status: Acute Problems: Comment Review of Relevant I have reviewed the following items lizbeth (where applicable) has been applied. Labs Laboratory Tests Test 12/24/16 02:24 12/24/16 03:25 12/24/16 07:47 12/24/16 12:05 Glucose (Fingerstick) 479 mg/dL (70-99) 264 mg/dL (70-99) 225 mg/dL (70-99) White Blood Count 5.2 x10^3/uL (4.0-11.0) Red Blood Count 4.28 x10^6/uL (3.50-5.40) Hemoglobin 10.5 g/dL (12.0-15.5) Hematocrit 32.7 % (36.0-47.0) Mean Corpuscular Volume 76 fL (79-100) Mean Corpuscular Hemoglobin 25 pg (25-35) Mean Corpuscular Hemoglobin Concent 32 g/dL (31-37) Red Cell Distribution Width 17.3 % (11.5-14.5) Platelet Count 224 x10^3/uL (140-400) Neutrophils (%) (Auto) 54 % (31-73) Lymphocytes (%) (Auto) 37 % (24-48) Monocytes (%) (Auto) 7 % (0-9) Eosinophils (%) (Auto) 2 % (0-3) Basophils (%) (Auto) 0 % (0-3) Neutrophils # (Auto) 2.8 x10^3uL (1.8-7.7) Lymphocytes # (Auto) 1.9 x10^3/uL (1.0-4.8) Monocytes # (Auto) 0.3 x10^3/uL (0.0-1.1) Eosinophils # (Auto) 0.1 x10^3/uL (0.0-0.7) Basophils # (Auto) 0.0 x10^3/uL (0.0-0.2) Sodium Level 134 mmol/L (136-145) Potassium Level 4.7 mmol/L (3.5-5.1) Chloride Level 99 mmol/L (98-107) Carbon Dioxide Level 20 mmol/L (21-32) Anion Gap 15 (6-14) Blood Urea Nitrogen 10 mg/dL (7-20) Creatinine 0.9 mg/dL (0.6-1.0) Estimated GFR (Cockcroft-Gault) 74.6 Glucose Level 532 mg/dL (70-99) Lactic Acid Level 3.9 mmol/L (0.4-2.0) Calcium Level 8.8 mg/dL (8.5-10.1) C-Reactive Protein, Quantitative 13.9 mg/L (0-3.3) Acetone Level Neg (NEG) Test 12/24/16 16:53 12/24/16 21:10 12/25/16 05:55 12/25/16 08:00 Glucose (Fingerstick) 297 mg/dL (70-99) 223 mg/dL (70-99) 260 mg/dL (70-99) White Blood Count 5.8 x10^3/uL (4.0-11.0) Red Blood Count 4.42 x10^6/uL (3.50-5.40) Hemoglobin 10.6 g/dL (12.0-15.5) Hematocrit 33.7 % (36.0-47.0) Mean Corpuscular Volume 76 fL (79-100) Mean Corpuscular Hemoglobin 24 pg (25-35) Mean Corpuscular Hemoglobin Concent 31 g/dL (31-37) Red Cell Distribution Width 17.0 % (11.5-14.5) Platelet Count 235 x10^3/uL (140-400) Neutrophils (%) (Auto) 57 % (31-73) Lymphocytes (%) (Auto) 33 % (24-48) Monocytes (%) (Auto) 7 % (0-9) Eosinophils (%) (Auto) 3 % (0-3) Basophils (%) (Auto) 0 % (0-3) Neutrophils # (Auto) 3.3 x10^3uL (1.8-7.7) Lymphocytes # (Auto) 1.9 x10^3/uL (1.0-4.8) Monocytes # (Auto) 0.4 x10^3/uL (0.0-1.1) Eosinophils # (Auto) 0.2 x10^3/uL (0.0-0.7) Basophils # (Auto) 0.0 x10^3/uL (0.0-0.2) Sodium Level 136 mmol/L (136-145) Potassium Level 4.4 mmol/L (3.5-5.1) Chloride Level 102 mmol/L (98-107) Carbon Dioxide Level 25 mmol/L (21-32) Anion Gap 9 (6-14) Blood Urea Nitrogen 8 mg/dL (7-20) Creatinine 0.7 mg/dL (0.6-1.0) Estimated GFR (Cockcroft-Gault) 99.6 Glucose Level 268 mg/dL (70-99) Calcium Level 9.0 mg/dL (8.5-10.1) Iron Level 29 ug/dL (50-170) Total Iron Binding Capacity 432 ug/dL (250-450) Iron Saturation 7 % (15-34) Ferritin 23 ng/mL (8-252) Vitamin B12 Level 390 pg/mL (247-911) Serum Folate 12.32 ng/ml (3.2-20.0) Test 12/25/16 11:39 Glucose (Fingerstick) 88 mg/dL (70-99) Laboratory Tests Test 12/24/16 16:53 12/24/16 21:10 12/25/16 05:55 12/25/16 08:00 Glucose (Fingerstick) 297 mg/dL (70-99) 223 mg/dL (70-99) 260 mg/dL (70-99) White Blood Count 5.8 x10^3/uL (4.0-11.0) Red Blood Count 4.42 x10^6/uL (3.50-5.40) Hemoglobin 10.6 g/dL (12.0-15.5) Hematocrit 33.7 % (36.0-47.0) Mean Corpuscular Volume 76 fL (79-100) Mean Corpuscular Hemoglobin 24 pg (25-35) Mean Corpuscular Hemoglobin Concent 31 g/dL (31-37) Red Cell Distribution Width 17.0 % (11.5-14.5) Platelet Count 235 x10^3/uL (140-400) Neutrophils (%) (Auto) 57 % (31-73) Lymphocytes (%) (Auto) 33 % (24-48) Monocytes (%) (Auto) 7 % (0-9) Eosinophils (%) (Auto) 3 % (0-3) Basophils (%) (Auto) 0 % (0-3) Neutrophils # (Auto) 3.3 x10^3uL (1.8-7.7) Lymphocytes # (Auto) 1.9 x10^3/uL (1.0-4.8) Monocytes # (Auto) 0.4 x10^3/uL (0.0-1.1) Eosinophils # (Auto) 0.2 x10^3/uL (0.0-0.7) Basophils # (Auto) 0.0 x10^3/uL (0.0-0.2) Sodium Level 136 mmol/L (136-145) Potassium Level 4.4 mmol/L (3.5-5.1) Chloride Level 102 mmol/L (98-107) Carbon Dioxide Level 25 mmol/L (21-32) Anion Gap 9 (6-14) Blood Urea Nitrogen 8 mg/dL (7-20) Creatinine 0.7 mg/dL (0.6-1.0) Estimated GFR (Cockcroft-Gault) 99.6 Glucose Level 268 mg/dL (70-99) Calcium Level 9.0 mg/dL (8.5-10.1) Iron Level 29 ug/dL (50-170) Total Iron Binding Capacity 432 ug/dL (250-450) Iron Saturation 7 % (15-34) Ferritin 23 ng/mL (8-252) Vitamin B12 Level 390 pg/mL (247-911) Serum Folate 12.32 ng/ml (3.2-20.0) Test 12/25/16 11:39 Glucose (Fingerstick) 88 mg/dL (70-99) Microbiology 12/24/16 Blood Culture - Preliminary, Resulted NO GROWTH AFTER 1 DAY Medications Current Medications Ondansetron HCl (Zofran) 4 mg 1X ONCE IV Last administered on 12/24/16t 03:47 ; Start 12/24/16 at 04:00; Stop 12/24/16 at 04:01; Status DC Sodium Chloride 1,000 ml @ 1,000 mls/hr 1X ONCE IV Last administered on 03:47; Start 12/24/16 at 04:00; Stop 12/24/16 at 04:59; Status DC Linezolid (Zyvox) 600 mg BID PO Last administered on 12/25/16 08:17; Start at 04:00 Hydromorphone HCl (Dilaudid) 1 mg 1X ONCE IV Last administered on 12/24/16 03 :48; Start 12/24/16 at 04:00; Stop 12/24/16 at 04:01; Status DC Insulin Human Regular (NovoLIN R VIAL) 20 unit 1X ONCE IV Last administered on 12/24/16 05:29; Start 12/24/16 at 05:00; Stop 12/24/16 at 05:01; Status DC Ondansetron HCl (Zofran) 4 mg PRN Q8HRS PRN IV NAUSEA/VOMITING Last administered on 12/24/16 13:07; Start 12/24/16 at 04:45; Stop 12/24/16 at 15:59 ; Status DC Sodium Chloride 1,000 ml @ 125 mls/hr 1X ONCE IV Last administered on 05:18; Start 12/24/16 at 05:00; Stop 12/24/16 at 12:59; Status DC Insulin Detemir (Levemir) 10 units QHS SQ ; Start 12/24/16 at 21:00; Stop at 21:00; Status DC Insulin Aspart (NovoLOG) 0-5 UNITS TIDWMEALS SQ ; Start 12/24/16 at 08:00; Status UNV Insulin Aspart (NovoLOG) 0-7 UNITS TIDWMEALS SQ Last administered on 12/25/16 08:25; Start 12/24/16 at 08:00; Stop 12/25/16 at 10:35; Status DC Insulin Aspart (NovoLOG) 0-9 UNITS TIDWMEALS SQ ; Start 12/24/16 at 08:00; Status UNV Dextrose (Dextrose 50%-Water Syringe) 12.5 gm PRN Q15MIN PRN IV SEE COMMENTS; Start 12/24/16 at 04:45 Hydromorphone HCl (Dilaudid) 1 mg PRN Q4HRS PRN IV SEVERE PAIN Last administered on 12/25/16 09:52; Start 12/24/16 at 05:00 Cefepime HCl 1 gm/ Sodium Chloride 50 ml @ 100 mls/hr Q8HRS IV Last administered on 12/25/16 05:46; Start 12/24/16 at 09:00 Diazepam (Valium) 5 mg PRN Q6HRS PRN PO ANXIETY / AGITATION Last administered on 12/24/16 18:36; Start 12/24/16 at 12:30 Insulin Aspart (NovoLOG) 45 units TIDAC SQ ; Start 12/24/16 at 12:45; Stop 12/24 at 12:45; Status DC Insulin Detemir (Levemir) 85 units BID SQ Last administered on 12/25/16 08:25 ; Start 12/24/16 at 21:00; Stop 12/25/16 at 11:22; Status DC Tramadol HCl (Ultram) 50 mg Q6H PRN PO PAIN; Start 12/24/16 at 12:30; Stop at 12:33; Status DC Trazodone HCl (Desyrel) 100 mg QHS PO Last administered on 12/24/16 22:29; Start 12/24/16 at 21:00 Insulin Detemir (Levemir) 80 units QHS SQ ; Start 12/24/16 at 21:00; Stop at 21:00; Status DC Acetaminophen (Tylenol) 650 mg PRN Q6HRS PRN PO FEVER; Start 12/24/16 at 12:30 Ondansetron HCl (Zofran) 4 mg PRN Q6HRS PRN IV NAUSEA/VOMITING Last administered on 12/25/16 09:08; Start 12/24/16 at 12:30 Morphine Sulfate 2 mg PRN Q2HR PRN IV PAIN; Start 12/24/16 at 12:30 Tramadol HCl (Ultram) 50 mg PRN Q6HRS PRN PO PAIN Last administered on 08:39; Start 12/24/16 at 12:30 Hydralazine HCl (Apresoline) 10 mg PRN Q4HRS PRN IVP ELEVATED BP, SEE COMMENTS ; Start 12/24/16 at 12:30 Docusate Sodium (Colace) 100 mg PRN DAILY PRN PO CONSTIPATION; Start 12/24/16 at 12:30 Insulin Aspart (NovoLOG) 35 units TIDAC SQ Last administered on 12/25/16 08:24 ; Start 12/24/16 at 12:45 Heparin Sodium (Porcine) (Hep Lock Adult) 500 unit STK-MED ONCE IV ; Start 12/24 at 13:48; Stop 12/24/16 at 13:49; Status DC Lidocaine/ Epinephrine (Xylocaine 1%-Epi 1:100,000) 20 ml STK-MED ONCE .ROUTE ; Start 12/24/16 at 13:48; Stop 12/24/16 at 13:49; Status DC Heparin Sodium/ Sodium Chloride 500 ml @ As Directed STK-MED ONCE .ROUTE ; Start 12/24/16 at 13:48; Stop 12/24/16 at 13:49; Status DC Enoxaparin Sodium (Lovenox 40mg Syringe) 40 mg DAILY16 SQ Last administered on 12/24/16 15:33; Start 12/24/16 at 16:00 Vancomycin HCl 250 ml @ As Directed STK-MED ONCE .ROUTE ; Start 12/24/16 at 13: 55; Stop 12/24/16 at 13:56; Status DC Midazolam HCl (Versed) 5 mg STK-MED ONCE .ROUTE ; Start 12/24/16 at 13:56; Stop 12/24/16 at 13:57; Status DC Morphine Sulfate 4 mg STK-MED ONCE .ROUTE ; Start 12/24/16 at 13:57; Stop at 13:58; Status DC Clindamycin Phosphate 50 ml @ As Directed STK-MED ONCE IV ; Start 12/24/16 at 14 :01; Stop 12/24/16 at 14:02; Status DC Diphenhydramine HCl (Benadryl) 50 mg STK-MED ONCE .ROUTE ; Start 12/24/16 at 14: 01; Stop 12/24/16 at 14:02; Status DC Heparin Sodium/ Sodium Chloride 1,000 unit 1X ONCE IART Last administered on 15:13; Start 12/24/16 at 14:45; Stop 12/24/16 at 14:47; Status DC Midazolam HCl (Versed) 5 mg 1X ONCE IV Last administered on 12/24/16 15:12; Start 12/24/16 at 14:45; Stop 12/24/16 at 14:47; Status DC Lidocaine/ Epinephrine (Xylocaine 1%-Epi 1:100,000) 20 ml 1X ONCE INJ Last administered on 12/24/16 15:13; Start 12/24/16 at 14:45; Stop 12/24/16 at 14:47 ; Status DC Vancomycin HCl 250 ml @ 250 mls/hr 1X ONCE IV Last administered on 12/24/16 15:14; Start 12/24/16 at 14:45; Stop 12/24/16 at 15:44; Status DC Morphine Sulfate 12 mg 1X ONCE IV Last administered on 12/24/16 15:13; Start 12/24/16 at 14:45; Stop 12/24/16 at 14:47; Status DC Heparin Sodium (Porcine) (Hep Lock Adult) 500 unit 1X ONCE IV ; Start 12/24/16 at 14:45; Stop 12/24/16 at 14:47; Status DC Diphenhydramine HCl (Benadryl) 50 mg 1X ONCE IVP Last administered on 15:12; Start 12/24/16 at 14:45; Stop 12/24/16 at 14:47; Status DC Clindamycin Phosphate 50 ml @ 100 mls/hr 1X ONCE IV Last administered on 12/24 14:14; Start 12/24/16 at 15:15; Stop 12/24/16 at 15:44; Status DC Insulin Aspart (NovoLOG) 0-7 UNITS QIDACHS SQ ; Start 12/25/16 at 11:30 Insulin Detemir (Levemir) 90 units BID SQ ; Start 12/25/16 at 21:00 Ferrous Sulfate (Feosol) 325 mg DAILYWBKFT PO Last administered on 12/25/16 11 :47; Start 12/25/16 at 12:00 Cyanocobalamin (Vitamin B-12) 1,000 mcg DAILY PO ; Start 12/26/16 at 09:00 Active Scripts Active Sulfamethoxazole-Tmp Ds Tablet (Sulfamethoxazole/Trimethoprim) 1 Each Tablet 1 Tab PO BID 7 Days Levemir Flextouch (Insulin Detemir) 100 Unit/1 Ml Insuln.pen 85 Units SQ BID 30 Days Novolog Flexpen (Insulin Aspart) 100 Unit/1 Ml Insuln.pen 45 Units SQ TIDAC 30 Days Ultram (Tramadol Hcl) 50 Mg Tablet 50 Mg PO Q6H PRN Reported Diazepam 5 Mg Tablet 5 Mg PO PRN Q6HRS Trazodone Hcl 100 Mg Tablet 1 Tab PO QHS Vitals/I & O Vital Sign - Last 24 Hours 12/24/16 12/24/16 12/24/16 12/24/16 13:07 15:00 15:13 17:09 Temp 98.6 98.6 Pulse 111 Resp 16 20 20 14 B/P (MAP) 142/91 (108) Pulse Ox 98 98 O2 Delivery Room Air Room Air Room Air Room Air 12/24/16 12/24/16 12/24/16 12/24/16 18:23 19:29 19:37 21:12 Temp 98.0 98.0 Pulse 107 Resp 18 18 B/P (MAP) 126/84 (98) Pulse Ox 97 96 O2 Delivery Room Air Room Air Room Air Room Air 12/24/16 12/25/16 12/25/16 12/25/16 22:25 03:15 07:00 08:00 Temp 97.8 98.1 98.1 97.8 98.1 98.1 Pulse 112 106 100 Resp 18 18 18 B/P (MAP) 136/95 (109) 142/92 (109) 136/80 (98) Pulse Ox 99 100 100 O2 Delivery Room Air Room Air Room Air Room Air 12/25/16 12/25/16 12/25/16 12/25/16 08:39 09:51 09:52 10:11 Resp 14 16 16 16 O2 Delivery Room Air Room Air Room Air Room Air 12/25/16 11:00 Temp 98.5 98.5 Pulse 107 Resp 18 B/P (MAP) 138/92 (107) Pulse Ox 97 O2 Delivery Room Air Intake and Output 12/24/16 12/24/16 12/25/16 15:00 23:00 07:00 Intake Total 50 ml 300 ml 300 ml Balance 50 ml 300 ml 300 ml KENNY MELENDEZ MD December 25, 2016 12:44
--- NOTE | 2016-12-25 14:51 | PDOC ---
PROGRESS NOTES Subjective Subjective Patient anxious and tearful. Objective Vital Signs Vital Signs Date Time Temp Pulse Resp B/P (MAP) Pulse Ox O2 Delivery O2 Flow Rate FiO2 12/25/16 14:13 14 Room Air 12/25/16 11:00 98.5 107 138/92 (107) 97 98.5 Physical Exam thumb appears the same. Suture incision intact with no drainage. Slight erythema , most consistent with trace hematoma. No palpable abscess. Labs Laboratory Tests Test 12/24/16 02:24 12/24/16 03:25 12/24/16 07:47 12/24/16 12:05 Glucose (Fingerstick) 479 mg/dL (70-99) 264 mg/dL (70-99) 225 mg/dL (70-99) White Blood Count 5.2 x10^3/uL (4.0-11.0) Red Blood Count 4.28 x10^6/uL (3.50-5.40) Hemoglobin 10.5 g/dL (12.0-15.5) Hematocrit 32.7 % (36.0-47.0) Mean Corpuscular Volume 76 fL (79-100) Mean Corpuscular Hemoglobin 25 pg (25-35) Mean Corpuscular Hemoglobin Concent 32 g/dL (31-37) Red Cell Distribution Width 17.3 % (11.5-14.5) Platelet Count 224 x10^3/uL (140-400) Neutrophils (%) (Auto) 54 % (31-73) Lymphocytes (%) (Auto) 37 % (24-48) Monocytes (%) (Auto) 7 % (0-9) Eosinophils (%) (Auto) 2 % (0-3) Basophils (%) (Auto) 0 % (0-3) Neutrophils # (Auto) 2.8 x10^3uL (1.8-7.7) Lymphocytes # (Auto) 1.9 x10^3/uL (1.0-4.8) Monocytes # (Auto) 0.3 x10^3/uL (0.0-1.1) Eosinophils # (Auto) 0.1 x10^3/uL (0.0-0.7) Basophils # (Auto) 0.0 x10^3/uL (0.0-0.2) Sodium Level 134 mmol/L (136-145) Potassium Level 4.7 mmol/L (3.5-5.1) Chloride Level 99 mmol/L (98-107) Carbon Dioxide Level 20 mmol/L (21-32) Anion Gap 15 (6-14) Blood Urea Nitrogen 10 mg/dL (7-20) Creatinine 0.9 mg/dL (0.6-1.0) Estimated GFR (Cockcroft-Gault) 74.6 Glucose Level 532 mg/dL (70-99) Lactic Acid Level 3.9 mmol/L (0.4-2.0) Calcium Level 8.8 mg/dL (8.5-10.1) C-Reactive Protein, Quantitative 13.9 mg/L (0-3.3) Acetone Level Neg (NEG) Test 12/24/16 16:53 12/24/16 21:10 12/25/16 05:55 12/25/16 08:00 Glucose (Fingerstick) 297 mg/dL (70-99) 223 mg/dL (70-99) 260 mg/dL (70-99) White Blood Count 5.8 x10^3/uL (4.0-11.0) Red Blood Count 4.42 x10^6/uL (3.50-5.40) Hemoglobin 10.6 g/dL (12.0-15.5) Hematocrit 33.7 % (36.0-47.0) Mean Corpuscular Volume 76 fL (79-100) Mean Corpuscular Hemoglobin 24 pg (25-35) Mean Corpuscular Hemoglobin Concent 31 g/dL (31-37) Red Cell Distribution Width 17.0 % (11.5-14.5) Platelet Count 235 x10^3/uL (140-400) Neutrophils (%) (Auto) 57 % (31-73) Lymphocytes (%) (Auto) 33 % (24-48) Monocytes (%) (Auto) 7 % (0-9) Eosinophils (%) (Auto) 3 % (0-3) Basophils (%) (Auto) 0 % (0-3) Neutrophils # (Auto) 3.3 x10^3uL (1.8-7.7) Lymphocytes # (Auto) 1.9 x10^3/uL (1.0-4.8) Monocytes # (Auto) 0.4 x10^3/uL (0.0-1.1) Eosinophils # (Auto) 0.2 x10^3/uL (0.0-0.7) Basophils # (Auto) 0.0 x10^3/uL (0.0-0.2) Sodium Level 136 mmol/L (136-145) Potassium Level 4.4 mmol/L (3.5-5.1) Chloride Level 102 mmol/L (98-107) Carbon Dioxide Level 25 mmol/L (21-32) Anion Gap 9 (6-14) Blood Urea Nitrogen 8 mg/dL (7-20) Creatinine 0.7 mg/dL (0.6-1.0) Estimated GFR (Cockcroft-Gault) 99.6 Glucose Level 268 mg/dL (70-99) Calcium Level 9.0 mg/dL (8.5-10.1) Iron Level 29 ug/dL (50-170) Total Iron Binding Capacity 432 ug/dL (250-450) Iron Saturation 7 % (15-34) Ferritin 23 ng/mL (8-252) Vitamin B12 Level 390 pg/mL (247-911) Serum Folate 12.32 ng/ml (3.2-20.0) Test 12/25/16 11:39 12/25/16 14:16 Glucose (Fingerstick) 88 mg/dL (70-99) 102 mg/dL (70-99) Laboratory Tests Test 12/24/16 16:53 12/24/16 21:10 12/25/16 05:55 12/25/16 08:00 Glucose (Fingerstick) 297 mg/dL (70-99) 223 mg/dL (70-99) 260 mg/dL (70-99) White Blood Count 5.8 x10^3/uL (4.0-11.0) Red Blood Count 4.42 x10^6/uL (3.50-5.40) Hemoglobin 10.6 g/dL (12.0-15.5) Hematocrit 33.7 % (36.0-47.0) Mean Corpuscular Volume 76 fL (79-100) Mean Corpuscular Hemoglobin 24 pg (25-35) Mean Corpuscular Hemoglobin Concent 31 g/dL (31-37) Red Cell Distribution Width 17.0 % (11.5-14.5) Platelet Count 235 x10^3/uL (140-400) Neutrophils (%) (Auto) 57 % (31-73) Lymphocytes (%) (Auto) 33 % (24-48) Monocytes (%) (Auto) 7 % (0-9) Eosinophils (%) (Auto) 3 % (0-3) Basophils (%) (Auto) 0 % (0-3) Neutrophils # (Auto) 3.3 x10^3uL (1.8-7.7) Lymphocytes # (Auto) 1.9 x10^3/uL (1.0-4.8) Monocytes # (Auto) 0.4 x10^3/uL (0.0-1.1) Eosinophils # (Auto) 0.2 x10^3/uL (0.0-0.7) Basophils # (Auto) 0.0 x10^3/uL (0.0-0.2) Sodium Level 136 mmol/L (136-145) Potassium Level 4.4 mmol/L (3.5-5.1) Chloride Level 102 mmol/L (98-107) Carbon Dioxide Level 25 mmol/L (21-32) Anion Gap 9 (6-14) Blood Urea Nitrogen 8 mg/dL (7-20) Creatinine 0.7 mg/dL (0.6-1.0) Estimated GFR (Cockcroft-Gault) 99.6 Glucose Level 268 mg/dL (70-99) Calcium Level 9.0 mg/dL (8.5-10.1) Iron Level 29 ug/dL (50-170) Total Iron Binding Capacity 432 ug/dL (250-450) Iron Saturation 7 % (15-34) Ferritin 23 ng/mL (8-252) Vitamin B12 Level 390 pg/mL (247-911) Serum Folate 12.32 ng/ml (3.2-20.0) Test 12/25/16 11:39 12/25/16 14:16 Glucose (Fingerstick) 88 mg/dL (70-99) 102 mg/dL (70-99) Imaging MRI images and report reviewed. Trace fluid, most consistent with hematoma. Doubtful osteomyelitis findings. No abscess to drain or bone to debride. Assessment Assessment thumb hematoma and inflammation following amputation Problems: Plan Plan of Care trace fluid here, but I think additional surgery would cause more inflammation and bleeding than she has currently. I recommend rest (TAJ wrap spica to thumb which I applied), daily handwashing including incision and sutures with chlorhexidine, and band aid dressing. Oral Clindamycin 300 mg QID x 10 days. Office follow up with us on 12/31. Ok to discharge home. XENIA ELAM MD December 25, 2016 14:51
[2016-12-25] MEDS ORDERED: CLIN300C86 PO (14:53)
[2016-12-25 15:00] VITALS: BP 140/88
[2016-12-25] MEDS: IBUPROFEN 600 MG TABLET. PO SCH ×2 (15:16→21:06)
[2016-12-25] MEDS: ENOXAPARIN 40 MG/0.4 ML SYRINGE. SQ SCH (15:29)
[2016-12-25] MEDS: diazePAM 5 MG TABLET PO PRN (18:14)
[2016-12-25 19:16] VITALS: BP 137/87
[2016-12-25] MEDS: traZODone 100 MG TABLET. PO SCH (21:07)
[2016-12-25] MEDS: HYDROmorphone 2 MG TABLET PO PRN (22:19)
[2016-12-25 22:28] VITALS: BP 125/76
[2016-12-26 03:11] VITALS: BP 102/48
[2016-12-26] MEDS: HYDROmorphone 2 MG TABLET PO PRN ×3 (03:21→12:53)
[2016-12-26] MEDS: traMADol 50 MG TABLET PO PRN ×2 (05:50→11:49)
[2016-12-26] MEDS: CEFEPIME HCL 1 GM in IV NORMAL SALINE 50ML 50 ML IV SCH (05:50)
[2016-12-26 06:13] LABS: BASO % 0 % (0-3); EOS % 3 % (0-3); HEMATOCRIT 34.4 % (36.0-47.0); LYMPH # 2.2 x10^3/uL (1.0-4.8); LYMPH % 40 % (24-48); MEAN CORPUSCULAR HEMOGLOBIN 24 pg (25-35); MEAN CORPUSCULAR HGB CONC 32 g/dL (31-37); MEAN CORPUSCULAR VOLUME 76 fL (79-100); MONO % 8 % (0-9); NEUT % 49 % (31-73); PLATELET COUNT 239 x10^3/uL (140-400); RED BLOOD COUNT 4.55 x10^6/uL (3.50-5.40); RED CELL DISTRIBUTION WIDTH 17.1 % (11.5-14.5); WHITE BLOOD COUNT 5.4 x10^3/uL (4.0-11.0)
[2016-12-26 06:22] LABS: CALCIUM 8.9 mg/dL (8.5-10.1); CREATININE 0.6 mg/dL (0.6-1.0); POTASSIUM 4.8 mmol/L (3.5-5.1)
[2016-12-26 07:00] VITALS: BP 119/76
[2016-12-26] MEDS: LINEZOLID 600 MG TABLET PO SCH (08:22)
[2016-12-26] MEDS: FERROUS SULFATE 325 MG TABLET. PO SCH (08:22)
[2016-12-26] MEDS: diazePAM 5 MG TABLET PO PRN (08:22)
[2016-12-26] MEDS: IBUPROFEN 600 MG TABLET. PO SCH (08:22)
[2016-12-26] MEDS: INSULIN ASPART 300 UNITS/3 ML INSULN.PEN SQ SCH ×4 (08:29→11:53)
[2016-12-26] MEDS: INSULIN DETEMIR 300 UNITS/3 ML INSULN.PEN. SQ SCH (08:41)
[2016-12-26] MEDS ORDERED: CYANOCOBALAMIN (VITAMIN B-12) 1,000 MCG TABLET. PO SCH (09:00)
[2016-12-26 10:49] VITALS: BP 124/68
[2016-12-26] MEDS ORDERED: HYDR2TAB13 PO (12:02)
[2016-12-26] MEDS: ONDANSETRON PF 4 MG/2 ML VIAL. IV PRN (12:56)
--- NOTE | 2016-12-26 13:54 | PDOC3 ---
Discharge Summary [facility] Date of Admission: December 24, 2016 Discharge Date: December 26, 2016 Admitting Diagnosis 1. left thumb recurrent cellulitis, post recent amputation 2. uncontrolled dm1 3. h/o MRSA 4. MORBID Obesity 5. fatty liver 6. anxiety 7. 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 Renteria, and pt's left thumb doesnot appear clinically significantly infected History of Present Illness History of Present Illness cont c/o left thumb is swelling,erythema ( which is mild to me), tenderness glucose >200 all the time yesterday, when i told her i will check hba1c , pt got upset and kept stating her glucose is controlled well pt also said she didnot eat much, HOWEVER, as per nurse, she ordered several trays of food always MRI result seen Vitals Vitals Vital Signs Date Time Temp Pulse Resp B/P (MAP) Pulse Ox O2 Delivery O2 Flow Rate FiO2 12/25/16 11:00 98.5 107 18 138/92 (107) 97 Room Air 98.5 Physical Exam Problems: Final Diagnosis CONSULTS id dr. Dennis Brief Hospital Course Patient is a 26 year old female who presents with redness, swelling and increased pain to left thumb for 2 days. Pt was here a few month ago for uncontrolled dm1, when she got iv through her left thumb. Since then she started to have the pain and came back for the infection, for which she got I and D by dr. Elias. Then she cont having pain, and she got distal amputation approx 2 weeks ago (at outside facility in [place]), where her parents stay. She was told to cont bactrim and levaquin for another 1month , cannot tell me whether the infection was cleaned well by ortho there, but said the finger was ok , till 2 days ago, with swelling, erythema, and pus exudate, pain. Denies fever, chills. + nausea. no chest pain, sob. states that she controlled DM well with levemir 90u bid, aspart 35u tid. She is a very difficult IV stick notoriously and states "I was suppose to get a PORT the last time I was admitted, but they cancelled it." Pt got a right upper chest port for IVF access. MRI finger showed possible osteomyelitis. however, pt's left thumb clinically dosenot look obvious infection, altho it does look mild swelling, mild erythematous, with stitches on and intact and no discharge. 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 She states she dosenot eat much in the hosp, but nurse said she ordered multiple trays. hba1c pending. dr. Dennis consulted, would not do further sx now and ID did not consider severe infection too. DC home with clindamycin as per ortho for 10ds. Dilaudid 2mg po prn 20pills. dc time 35min. General: Alert, Cooperative Heart: Regular rate Lungs: Clear, Other Abdomen: Soft Extremities: Other (left thumb with retained sutures and volar flap thumb amputation of the distal phalanx, with remaining proximal phalanx. Slight raised areas 1-2 cm proximal to incision appears to be mild cellulitis. The patient reports purulent drainage, but I see none, and no evidence on exam of abscess. She has mild cellulitis, no dehiscence. There is tenderness, which according to her is increased.) Patient History: Anxiety disorder 32 MOTHER, Onset:Unknown FH: glaucoma 32 MOTHER, Onset:Unknown FH: ovarian cancer 32 MOTHER, Onset:Unknown Grandmother, Onset:Unknown Aunt--maternal, Onset:Unknown Family history: Angina (situation) 33 FATHER, , Age:Unknown, Onset:Unknown 32 MOTHER, Onset:Unknown Family history: Depression (situation) 32 MOTHER, Onset:Unknown No Family History of: Family history: Asthma Family history: Autoimmune disease (situation) Family history: Blood disorder (situation) Family history: Breast disease (situation) Family history: Cardiomyopathy (situation) Family history: Cardiovascular disease (situation) Family history: Crohn's disease (situation) Family history: Diabetes mellitus (situation) Family history: Epilepsy (situation) Family history: Gallbladder disease (situation) Family history: Gastrointestinal disease (situation) Family history: Hemophilia (situation) Family history: Hypertension (situation) Family history: Obesity (situation) Family history: Schizophrenia (situation) Family history: Sickle cell trait (situation) Family history: Suicide (situation) Family history: neoplasm - trachea/bronchus/lung (situation) Family history: neoplasm - urinary organ (situation) Family history: neoplasm of skin (situation) Malignant hyperthermia Sleep apnea Unknown Problems: Disposition home CONDITION AT DISCHARGE: Improved Diet regular Scheduled Clindamycin Hcl (Clindamycin Hcl), 300 MG PO QID Diazepam (Diazepam), 5 MG PO PRN Q6HRS, (Reported) Insulin Aspart (Novolog Flexpen), 45 UNITS SQ TIDAC Insulin Detemir (Levemir Flextouch), 85 UNITS SQ BID Trazodone Hcl (Trazodone Hcl), 1 TAB PO QHS, (Reported) Scheduled PRN Hydromorphone Hcl (Dilaudid), 2 MG PO PRN Q4HRS PRN for MODERATE-SEVERE PAIN Tramadol Hcl (Ultram), 50 MG PO Q6H PRN for PAIN Discontinued Medications Gabapentin (Gabapentin), 600 MG PO TID, (Reported) Sulfamethoxazole/Trimethoprim (Sulfamethoxazole-Tmp Ds Tablet), 1 TAB PO BID Follow Up dr. Dennis in 10ds KENNY MELENDEZ MD December 26, 2016 13:54
== END 2016-12-26 14:11 | disposition home or self-care (01) | DRG 580 ==
LOC: ER 01:49 → 6 SOUTH 04:30
PROVIDERS: ADMIT Internal Medicine; ATTEND Internal Medicine
PROC: 05HM33Z Insertion of Infusion Device into Right Internal Jugular Vein, Percutaneous Approach (ICD-10-PCS; principal; 2016-12-24)
PROC: B5131ZA Fluoroscopy of Right Jugular Veins using Low Osmolar Contrast, Guidance (ICD-10-PCS; 2016-12-24)
PROC: 0JH63XZ Insertion of Tunneled Vascular Access Device into Chest Subcutaneous Tissue and Fascia, Percutaneous Approach (ICD-10-PCS; 2016-12-24)
DX: L03.012 Cellulitis of left finger (principal); E87.2 Acidosis; S60.019A Contusion of unspecified thumb without damage to nail, initial encounter; E10.65 Type 1 diabetes mellitus with hyperglycemia; D50.9 Iron deficiency anemia, unspecified; E66.01 Morbid (severe) obesity due to excess calories; F41.9 Anxiety disorder, unspecified; G89.4 Chronic pain syndrome; I10 Essential (primary) hypertension; K76.0 Fatty (change of) liver, not elsewhere classified; Z79.4 Long term (current) use of insulin; Z68.34 Body mass index [BMI] 34.0-34.9, adult; Z81.8 Family history of other mental and behavioral disorders; Z88.8 Allergy status to other drugs, medicaments and biological substances; Z88.0 Allergy status to penicillin; Z88.6 Allergy status to analgesic agent; Z82.0 Family history of epilepsy and other diseases of the nervous system; Z82.49 Family history of ischemic heart disease and other diseases of the circulatory system; Z82.5 Family history of asthma and other chronic lower respiratory diseases; Z83.3 Family history of diabetes mellitus; Z83.511 Family history of glaucoma; Z86.14 Personal history of Methicillin resistant Staphylococcus aureus infection; Z90.49 Acquired absence of other specified parts of digestive tract
CPT/HCPCS: 36415; 36561; 73130; 73221; 76937; 77001; 80048; 82010; 82607; 82728; 82746; 82962; 83036; 83540; 83550; 83605; 85027; 86140; 87040; 96361; 96374; 96375; C1751; C1892; C1894; J0692; J1170; J1200; J1650; J1815; J2250; J2270; J2405; J3370; J3490; J7030; 99285-25

== ENCOUNTER 2017-02-24 01:29 | Inpatient (IN) | payer MEDICAID ==
[~2017-02-24] VITALS: Ht 170.2 cm; Wt 101.1 kg
[2017-02-24] VITALS (9 sets, daily range): BP systolic 108–139; BP diastolic 49–80
[~2017-02-24 01:29] MED LIST changes: -ASPI325T4 PO; +ASPI325T8 PO; +CLIN300C8 PO; -CLIN300C86 PO; +DIAZ5TAB4 PO; -HYDR-2666 PO; +HYDR-2758 PO; +HYDR2TAB31 PO; -LEVO500T38 PO; +LEVO500T59 PO; +SULF-143 PO; -SULF1TAB3 PO; -TRAM-29 PO; +TRAM-48 PO
[2017-02-24] MEDS ORDERED: ONDANSETRON PF 4 MG/2 ML VIAL. IV ONE (02:00)
[2017-02-24] MEDS ORDERED: IV NORMAL SALINE 1000ML BAG 1,000 ML IV ONE ×3 (02:00→05:18)
[2017-02-24 02:22] LABS: BASO % 1 % (0-3); EOS % 1 % (0-3); HEMATOCRIT 28.2 % (36.0-47.0); HEMOGLOBIN 8.6 g/dL (12.0-15.5); LYMPH # 2.5 x10^3/uL (1.0-4.8); LYMPH % 35 % (24-48); MEAN CORPUSCULAR HEMOGLOBIN 22 pg (25-35); MEAN CORPUSCULAR HGB CONC 30 g/dL (31-37); MEAN CORPUSCULAR VOLUME 72 fL (79-100); MONO % 8 % (0-9); NEUT % 56 % (31-73); PLATELET COUNT 265 x10^3/uL (140-400); RED CELL DISTRIBUTION WIDTH 17.7 % (11.5-14.5); WHITE BLOOD COUNT 7.3 x10^3/uL (4.0-11.0)
[2017-02-24 02:45] LABS: ALBUMIN 3.6 g/dL (3.4-5.0); ALBUMIN/GLOBULIN RATIO 0.9 (1.0-1.7); CALCIUM 8.9 mg/dL (8.5-10.1); CREATININE 1.1 mg/dL (0.6-1.0); GFR 59.1; POTASSIUM 3.8 mmol/L (3.5-5.1); TOTAL BILIRUBIN 0.3 mg/dL (0.2-1.0); TOTAL PROTEIN 7.4 g/dL (6.4-8.2)
[2017-02-24 03:05] LABS: BILIRUBIN,URINE NEGATIVE (NEG); GLUCOSE,URINE >=1000 mg/dL (NEG); NITRITE,URINE NEGATIVE (NEG); PROTEIN,URINE NEGATIVE (NEG-TRACE); UROBILINOGEN,URINE 0.2 mg/dL (0.2 mg/dL)
[2017-02-24] MEDS ORDERED: IV NORMAL SALINE 1000ML BAG 1,000 ML IV SCH (03:05)
[2017-02-24] MEDS ORDERED: INSULIN REGULAR VIAL 150 UNIT in 0.9 % SODIUM CHLORIDE 150ML 150 ML IV PRN (03:15)
[2017-02-24 03:17] LABS: BACTERIA,URINE FEW /HPF (0-FEW); SQUAMOUS EPITHELIAL CELL,UR MOD /LPF
[2017-02-24 03:18] LABS: YEAST,URINE PRESENT /HPF
[2017-02-24 03:19] LABS: NEG OBC UR NEG; POS OBC UR POS
--- NOTE | 2017-02-24 03:29 | PHYS DOC ---
Past Medical History Past Medical History: Diabetes-Type I, MRSA, Other Additional Past Medical Histor: neuropathy, ovarian cyst,CHRONIC ABD PAIN, VENTRAL HERNIA, hyperglycemia Past Surgical History: Appendectomy, Cholecystectomy, Oophorectomy, Other Additional Past Surgical Histo: R fallopian, L ovary cyst removed,HERNIA REPAIR , I&D L ARM, left thumb amp Alcohol Use: None Drug Use: None Adult General Chief Complaint Chief Complaint: MULTIPLE COMPLAINTS HPI HPI Patient is a 26 year old female who presents here today secondary to nausea vomiting and elevated blood sugar. Patient reports that she's been compliant with all her medications and her diet however she does her blood sugars been elevated and she been nauseous. Patient also complaining of pain and swelling to her left thumb at the site of the amputation that she's had. Patient denies any fevers shakes chills cough cold runny nose. Patient is complaining of diffuse abdominal discomfort. Constitutional: Denies fever or chills [] Eyes: Denies change in visual acuity, redness, or eye pain [] HENT: Denies nasal congestion or sore throat [] All other review systems are negative except as documented in the history of present illness portion. Constitutional: Well developed, well nourished, no acute distress, non-toxic appearance. [] HENT: Normocephalic, atraumatic, bilateral external ears normal, Eyes: PERRLA, EOMI, conjunctiva normal, no discharge. [] Neck: Normal range of motion, no tenderness, supple, no stridor. [] Cardiovascular:Heart rate regular rhythm, tachycardic. Lungs & Thorax: Bilateral breath sounds clear to auscultation [] Abdomen: Bowel sounds normal, soft, no tenderness, no masses, no pulsatile masses. [] Skin: Warm, dry, no erythema, no rash. [] Back: No tenderness, no CVA tenderness. [] Extremities: No tenderness, no cyanosis, no clubbing, ROM intact, no edema. [] Patient was erythematous streaking to her left thumb at the site of the amputation. Neurologic: Alert and oriented X 3, normal motor function, normal sensory function, no focal deficits noted. [] Psychologic: Affect normal, judgement normal, mood normal. [] Patient's hospital course was significant for an elevated blood sugar, patient has and I gap of 17. Patient was slightly acidotic. Patient was given normal saline 2 L and ED and then started on insulin drip to treat her DKA. Patient also has what appears to be a cellulitis to her left hand at the site of the amputation site. Patient's left thumb is warm to touch with some erythema. There is no fluctuance. Assessment and plan this is a 26-year-old female with multiple admissions secondary to DKA in the past who presents here today with recurrence of her diabetic ketoacidosis. Possible source of her DKA during this visit is a possible cellulitis to her left hand. Patient was started on IV fluids, insulin drip, patient will be started on vancomycin and clindamycin empirically treat her for a cellulitis. Patient will be admitted for further evaluation and management of her DKA and cellulitis. She is requesting pain medicines and antiemetics. Patient be given Dilaudid and Phenergan IV in the ED. Current Medications Current Medications Current Medications Medications (Trade) Dose Ordered Sig/Naya Start Time Stop Time Status Last Admin Dose Admin Clindamycin Phosphate 50 ml @ 100 mls/hr 1X ONCE 02/24/17 03:30 02/24/17 03:59 UNV Hydromorphone HCl (Dilaudid) 1 mg 1X ONCE 02/24/17 03:30 02/24/17 03:31 UNV Insulin Human Regular 150 unit/ Sodium Chloride 151.5 ml @ 0 mls/hr CONT PRN PRN 02/24/17 03:15 Ondansetron HCl (Zofran) 4 mg 1X ONCE 02/24/17 02:00 02/24/17 02:01 DC 02/24/17 02:29 4 MG Promethazine HCl 12.5 mg/Sodium Chloride 50.5 ml @ 151.5 mls/ hr PRN Q6HRS PRN 02/24/17 03:30 UNV Sodium Chloride 1,000 ml @ 1,000 mls/hr Q1H 02/24/17 03:05 02/24/17 04:04 Vancomycin HCl (Vanco Per Pharmacy) 1 each PRN DAILY PRN 02/24/17 03:30 UNV Allergies Allergies Allergies Coded Allergies Type Severity Reaction Last Updated Verified Penicillins Allergy Severe ANAPHYLAXIS, cefepime ok 11/12/16 Yes codeine Allergy Intermediate Tolerates Dilaudid, MORPHINE 11/12/16 Yes doxycycline Allergy Intermediate 11/12/16 Yes fentanyl Allergy Intermediate 11/12/16 Yes hydrocodone Adverse Reaction Intermediate itching 11/12/16 Yes Current Patient Data Vital Signs Vital Signs Date Time Temp Pulse Resp B/P (MAP) Pulse Ox O2 Delivery O2 Flow Rate FiO2 02/24/17 01:42 98.2 125 16 134/64 (87) 98 Room Air 98.2 Lab Values Laboratory Tests Test 02/24/17 02:05 02/24/17 02:27 02/24/17 03:17 White Blood Count 7.3 x10^3/uL (4.0-11.0) Red Blood Count 3.90 x10^6/uL (3.50-5.40) Hemoglobin 8.6 g/dL (12.0-15.5) L Hematocrit 28.2 % (36.0-47.0) L Mean Corpuscular Volume 72 fL (79-100) L Mean Corpuscular Hemoglobin 22 pg (25-35) L Mean Corpuscular Hemoglobin Concent 30 g/dL (31-37) L Red Cell Distribution Width 17.7 % (11.5-14.5) H Platelet Count 265 x10^3/uL (140-400) Neutrophils (%) (Auto) 56 % (31-73) Lymphocytes (%) (Auto) 35 % (24-48) Monocytes (%) (Auto) 8 % (0-9) Eosinophils (%) (Auto) 1 % (0-3) Basophils (%) (Auto) 1 % (0-3) Neutrophils # (Auto) 4.1 x10^3uL (1.8-7.7) Lymphocytes # (Auto) 2.5 x10^3/uL (1.0-4.8) Monocytes # (Auto) 0.6 x10^3/uL (0.0-1.1) Eosinophils # (Auto) 0.1 x10^3/uL (0.0-0.7) Basophils # (Auto) 0.0 x10^3/uL (0.0-0.2) Platelet Estimate Pending Sodium Level 129 mmol/L (136-145) L Potassium Level 3.8 mmol/L (3.5-5.1) Chloride Level 93 mmol/L (98-107) L Carbon Dioxide Level 19 mmol/L (21-32) L Anion Gap 17 (6-14) H Blood Urea Nitrogen 14 mg/dL (7-20) Creatinine 1.1 mg/dL (0.6-1.0) H Estimated GFR (Cockcroft-Gault) 59.1 BUN/Creatinine Ratio 13 (6-20) Glucose Level 667 mg/dL (70-99) *H Calcium Level 8.9 mg/dL (8.5-10.1) Total Bilirubin 0.3 mg/dL (0.2-1.0) Aspartate Amino Transferase (AST) 35 U/L (15-37) Alanine Aminotransferase (ALT) 27 U/L (14-59) Alkaline Phosphatase 169 U/L (46-116) H Total Protein 7.4 g/dL (6.4-8.2) Albumin 3.6 g/dL (3.4-5.0) Albumin/Globulin Ratio 0.9 (1.0-1.7) L Lipase 141 U/L (73-393) Urine Collection Type Unknown Urine Color Yellow Urine Clarity Clear Urine pH 6.0 Urine Specific [place] >=1.030 Urine Protein Negative mg/dL (NEG-TRACE) Urine Glucose (UA) >=1000 mg/dL (NEG) Urine Ketones (Stick) Negative mg/dL (NEG) Urine Blood Negative (NEG) Urine Nitrite Negative (NEG) Urine Bilirubin Negative (NEG) Urine Urobilinogen Dipstick 0.2 mg/dL (0.2 mg/dL) Urine Leukocyte Esterase Negative (NEG) Urine RBC 1-2 /HPF (0-2) Urine WBC 1-4 /HPF (0-4) Urine Squamous Epithelial Cells Mod /LPF Urine Bacteria Few /HPF (0-FEW) Urine Yeast Present /HPF Urine Test Negative (NEG) Glucose (Fingerstick) 469 mg/dL (70-99) H Laboratory Tests 02/24/17 02:05 Laboratory Tests 02/24/17 02:05 EKG EKG [] Radiology/Procedures Radiology/Procedures [] Course & Med Decision Making Course & Med Decision Making Pertinent Labs and Imaging studies reviewed. (See chart for details) [] Dragon Disclaimer Dragon Disclaimer This electronic medical record was generated, in whole or in part, using a voice recognition dictation system. Departure Departure Impression: Primary Impression: Pain of left thumb Additional Impressions: Uncontrolled diabetes mellitus Hyperglycemia due to type 1 diabetes mellitus Inadequate pain control Hyperglycemia Cellulitis Diabetic ketoacidosis Disposition: ADMITTED INPATIENT Admitting Physician: Penelope Kline Condition: GUARDED Referrals: UNKNOWN PCP NAME (PCP) Problem Qualifiers DALY OTERO MD Feb 24, 2017 03:29
[2017-02-24] MEDS ORDERED: ONDANSETRON PF 4 MG/2 ML VIAL. IV PRN (03:30)
[2017-02-24] MEDS ORDERED: ACETAMINOPHEN 325 MG TABLET. PO PRN (03:30)
[2017-02-24 03:32] LABS: BARBITURATES NEG (NEG); BENZODIAZEPINES NEG (NEG); CANNABINOIDS NEG (NEG); COCAINE NEG (NEG); METHADONE NEG (NEG); OPIATES NEG (NEG); PHENCYCLIDINE NEG (NEG)
[2017-02-24 03:41] LABS: HYPOCHROMIA SLIGHT; MICROCYTOSIS SLIGHT; PLT ESTIMATE ADEQUATE (ADEQUATE); POIKILOCYTOSIS SLIGHT; POLYCHROMASIA SLIGHT; TARGET CELLS OCC
[2017-02-24 03:42] LABS: OVALOCYTES OCC
[2017-02-24] MEDS ORDERED: HYDROmorphone 2 MG/ML VIAL IV ONE (04:00)
[2017-02-24] MEDS ORDERED: CLINDAMYCIN 600MG PREMIX 50 ML IV ONE (04:00)
[2017-02-24] MEDS: PROMETHAZINE 12.5 MG in IV NORMAL SALINE 50ML 50 ML IV PRN ×2 (04:19→10:44)
[2017-02-24] MEDS ORDERED: VANCOMYCIN 2 GM in IV NORMAL SALINE 500ML BAG 500 ML IV ONE (04:30)
[2017-02-24 05:17] LABS: ISTAT PCO2 VEN 40 mmHg (41-51); ISTAT PH VEN 7.31 (7.32-7.42); ISTAT PO2 VEN 46 mmHg (20-40)
[2017-02-24 05:18] LABS: ISTAT HCO3 VEN 20 mmol/L (24-28)
[2017-02-24 05:19] LABS: FIO2 VENOUS ISTAT 37; ISTAT TCO2 VEN 21 mmol/L (21-32)
[2017-02-24 05:20] LABS: ISTAT SAT O2 VEN 77 %
[2017-02-24] MEDS: VANCOMYCIN PER PHARMACY MC PRN ×2 (05:55→08:01)
[2017-02-24] MEDS ORDERED: HYDROmorphone 2 MG/ML VIAL IVP PRN (06:00)
--- NOTE | 2017-02-24 06:07 | ACF ---
Admission Forms Criteria GENERAL ADMISSION CRITERIA (Place 'X' for any and all applicable criteria): Admission is indicated for ANY ONE of the following: [ ]I. Hemodynamic instability as indicated by ANY ONE of the following(1)(2) (3)(4)(5): [ ]a) Vital sign abnormality not readily corrected by appropriate treatment within 12 to 24 hours indicated by ANY ONE of the following: [ ]i) Hypotension [ ]ii) Symptomatic Tachycardia unresponsive to treatment (eg , analgesia, fluids, sedation as indicated) [ ]iii) Orthostatic vital sign changes unresponsive to treatment (eg, fluids) [ ]b) Vital sign abnormality that is severe indicated by ANY ONE of the following: [ ]i) Inadequate perfusion indicated by ANY ONE of the following: [ ]1) Lactic acidosis (greater than 2 mmol/L) [ ]2) New abnormal capillary refill (greater than 3 seconds) [ ]3) Other metabolic acidosis (arterial pH less than 7.35) not otherwise explained [ ]4) Reduced urine output [ ]5) Altered mental status [ ]6) Myocardial Ischemia [ ]v) Mean arterial pressure[A] less than 60 mm Hg [ ]vi) Mean arterial pressure[A] less than 70 mm Hg after 30 minutes of appropriate treatment (eg, fluid resuscitation) [ ]vii) IV inotropic or vasopressor medication required to maintain adequate blood pressure or perfusion [ ]viii) Sustained heart rate greater than 120 beats per minute in adult or child 6 years or older[B]] [ ]II. Hypertension requiring inpatient treatment as indicated by ANY ONE of the following(6)(7)(8): [ ]a) SBP greater than 220 mm Hg or DBP greater than 120 mm Hg despite treatment [ ]b) SBP greater than 140 mm Hg or DBP greater than 100 mm Hg with evidence of acute end organ damage as indicated by ANY ONE of the following: [ ]i) Encephalopathy [ ]ii) Acute renal failure as indicated by new onset of ANY ONE of the following(9)(10)(11)(12)(13): [ ]1) A 3-fold rise in serum creatinine from baseline [ ]2) Serum creatinine greater than 4 mg/dL ( 354 micromoles/L) with acute rise greater than 0.5 mg/dL (44.2 micromoles/L) [ ]3) Reduction of more than 75% in estimated glomerular filtration rate from baseline [ ]4) Estimated glomerular filtration rate less than 35 mL/min/1.73m2 (0.59 mL/sec/1.73m2) in child up to 18 years of age [ ]5) Cessation of urine output indicated by ALL of the following: [ ]A. Adequate volume status [ ]B. Inadequate urine output as indicated by ANY ONE of the following: [ ]a. Urine output less than 0.3 mL/kg/hr for 24 hours [ ]b. Anuria (urine output less than 0.1 mL/kg/hr) for 12 hours [ ]iii) Aortic dissection [ ]iv) Myocardial ischemia [ ]v) Left ventricular heart failure [ ]vi) Retinal hemorrhage [ ]vii) Other significant finding [ ]c) Hypertension in child requiring inpatient treatment as indicated by ALL of the following(14)(15)(16): [ ]i) Outpatient treatment not effective, not available, or not appropriate [ ]ii) SBP or DBP greater than 95th percentile for age [ ]iii) Evidence of acute end organ damage as indicated by ANY ONE of the following: [ ]1) Altered mental status [ ]2) Acute renal failure as indicated by new onset of ANY ONE of the following(9)(10)(11)(12)(13): [ ]A. A 3-fold rise in serum creatinine from baseline [ ]B. Serum creatinine greater than 4 mg/dL (354 micromoles/L) with acute rise greater than 0.5 mg/dL (44.2 micromoles/L) [ ]C. Reduction of more than 75% in estimated glomerular filtration rate from baseline [ ]D. Estimated glomerular filtration rate less than 35 mL/min/1.73m2 (0.59 mL/sec/1.73m2)in child up to 18 years of age [ ]E. Cessation of urine output indicated by ALL of the following: [ ]a. Adequate volume status [ ]b. Inadequate urine output as indicated by ANY ONE of the following: [ ]1) Urine output less than 0.3 mL/kg/hr for 24 hours [ ]2) Anuria (urine output less than 0.1 mL/kg/hr) for 12 hours [ ]3) Severe headache [ ]4) Visual disturbance [ ]5) Retinal hemorrhage [ ]6) Other significant finding [ ]III. Acute cardiac or peripheral ischemia as indicated by ANY ONE of the following: [ ]a) Acute coronary syndrome(17)(18) [ ]b) Acute peripheral ischemia (eg, pulseless, cool, mottled, or cyanotic extremity)(19) [ ]IV. Cardiac arrhythmias or findings of immediate concern indicated by ANY ONE of the following(20)(21): [ ]a) Heart rhythms that are inherently dangerous or unstable indicated by ANY ONE of the following(22)(23)(24): [ ]i) Resuscitated ventricular fibrillation or cardiac arrest [ ]ii) Ventricular escape rhythm [ ]iii) Sustained ventricular tachycardia (30 seconds or more of ventricular rhythm at greater than 100 beats per minute) [ ]iv) Nonsustained ventricular tachycardia and ANY ONE of the following: [ ]1) Suspected cardiac ischemia as cause or consequence of ventricular tachycardia [ ]2) In setting of acute myocarditis [ ]b) Unstable cardiac conduction defects indicated by ANY ONE of the following(24)(25)(26): [ ]i) Type II second-degree atrioventricular block [ ]ii) Third-degree atrioventricular block [ ]iii) New-onset left bundle branch block with suspected myocardial ischemia [ ]c) Any heart rhythm and ANY ONE of the following(22)(23)(27)(28)( 29): [ ] i) Continuous long-term ECG monitoring needed (eg, initiation of drug requiring monitoring for more than 24 hours) [ ] ii) Patient has automatic implanted cardioverter defibrillator that is repeatedly firing, malfunctioning, or in need of immediate adjustment of settings beyond the scope of ambulatory or observation care. [ ]d) Heart rhythms of concern due to ANY ONE of the following: [ ]i) Hypotension [ ]ii) Respiratory distress [ ]iii) Association with other significant symptoms (eg, bradycardia with syncope or ongoing dizziness, supraventricular tachycardia with chest pain) (27)(28) (30) [ ] V. Severe heart failure as indicated by ANY ONE of the following ( 31)(32): [ ]a) Respiratory distress [ ]b) Hypotension [ ]c) Anasarca (refractory to outpatient therapy) [ ]d) Cardiac arrhythmias of immediate concern [ ]e) Myocardial ischemia [ ]. Respiratory abnormalities, including ANY ONE of the following(33)(34) (35)(36): [ ]a) Respiratory rate greater than 30 breaths per minute unresponsive to treatment [A] [ ]b) New saturation of arterial oxygen less than 90% [ ]c) New partial pressure of carbon dioxide greater than 44 mm Hg ( 5.9 kPa) [ ]d) Supplemental oxygen or respiratory treatments needed that are new or not performable at other levels of care [ ]e) New-onset cyanosis [ ]f) Inability to protect airway [ ]g) Chronic lung disease with severe deterioration (not responsive to emergency and observation care treatment as appropriate) as indicated by ANY ONE of the following(34)(36 ): [ ]i) SaO2 5% below baseline in patient with chronic hypoxemia [ ]ii) New requirement for supplemental oxygen to keep SaO2 at baseline or acceptable level [ ]iii) Required supplemental oxygen performable only in acute inpatient setting [ ]iv) Severe airflow or ventilation abnormalities [ ]v) Previously mobile patient unable to walk between rooms [ ]vi Inability to eat or sleep due to dyspnea [ ]vii) Rapid rate of exacerbation onset [ ]viii) Altered mental status ]VII. Severe airflow or ventilation abnormalities (not responsive to emergency and observation care treatment as appropriate) as indicated by ANY ONE of the following(33)(34)(35)(37): [ ]a) PCO2 greater than 42 mm Hg (5.6 kPa) and pH less than 7.35 (new ) [ ]b) Documented PCO2 increased more than 5 mm Hg (0.7 kPa) from disease baseline [ ]c) Airflow measurements [B] less than 60% of previous best or predicted (eg, peak expiratory flow rate less than 300 L/minute) despite intensive emergent treatment [C] [ ]d) Required respiratory treatments that are performable only in acute inpatient setting [ ]VIII. Impending or actual respiratory arrest ( Also use Respiratory Failure GRG for severe respiratory disease and long-term mechanical ventilation patients) [ ]IX. Neurologic abnormalities, including ANY ONE of the following: [ ]a) New findings that suggest ANY ONE of the following: [ ]i) WAISTLINE JOINER LOCKSTITCH infection(38) [ ]ii) Cerebral bleeding, ischemia, or vasospasm(39)(40) [ ]iii) Increased intracranial pressure, hydrocephalus, or cerebral edema(41)(42)(43) [ ]iv) Spinal cord injury(44) [ ]b) Uncontrolled seizures(45) [ ]c) New-onset coma (eg, Dorothea coma scale score less than 9) or unexplained abnormal mental status (eg, Dorothea coma scale score less than 14) [D](41)(46)(47) [ ]X. New-onset severe neurologic findings requiring inpatient care; examples include(42)(48)(49): [ ]a) Papilledema [ ]b) Cerebral edema [ ]c) Mass effect on CT scan [ ]XI. Suspected acute intra-abdominal process with peritoneal signs, abdominal mass, or similar findings (50)(51)(52) [X]XII. Severe physiologic disorder remaining after emergency or observation level care (as appropriate) as indicated by ANY ONE of the following (53): [ ]a) Significant dehydration [X]b) Diabetic ketoacidosis [ ]c) Hyperglycemic hyperosmolar state (eg, osmolality greater than 320 mOsm/kg (mmol/kg) [ ]d) Hypoglycemia [ ]e) Other (new) acid-base disorder with pH less than 7.35 or greater than 7.5(54) [ ]f) Thyroid storm (55) [ ]g) Myxedema coma (55) [ ]XIII. Abdominal abnormalities with ANY ONE of the following(56)(57): [ ]a) Absent bowel sounds with complete ileus [ ]b) Signs of intestinal obstruction or peritonitis [E] [ ]c) Nausea and vomiting that cannot be controlled with outpatient or observation care [ ]XIV. Acute renal failure as indicated by new onset of ANY ONE of the following(9)(10)(11)(12)(13): [ ]a) A 3-fold rise in serum creatinine from baseline [ ]b) Serum creatinine greater than 4 mg/dL (354 micromoles/L) with acute rise greater than 0.5 mg/dL (44.2 micromoles/L) [ ]c) Reduction of more than 75% in estimated glomerular filtration rate from baseline [ ]d) Estimated glomerular filtration rate less than 35 mL/min/ 1.73m2 (0.59 mL/sec/1.73m2) in child up to 18 years of age [ ]e) Cessation of urine output indicated by ALL of the following: [ ]i) Adequate volume status [ ]ii) Inadequate urine output as indicated by ANY ONE of the following: [ ]1) Urine output less than 0.3 mL/kg/hr for 24 hours [ ]2) Anuria (urine output less than 0.1 mL/kg/hr) for 12 hours [ ]XV. Significant uremic complications as indicated by ANY ONE of the following(58)(59)(60): [ ]a) Outpatient therapy is ineffective or not feasible for ANY ONE of the following: [ ]i) Severe heart failure [ ]ii) Severehypertension [ ]iii) Pleural effusion [ ]iv) Pericarditis or pericardial effusion [ ]b) Cardiac arrhythmias of immediate concern [ ]c) Intractable nausea or vomiting [ ]d) Recurrent seizures [ ]e) Encephalopathy [ ]f) Bleeding abnormalities (eg, platelet dysfunction) with active (eg, gastrointestinal) bleeding [ ]g) Dialysis indicated before long-term access or ambulatory arrangements can be made [ ]h) Significant metabolic or electrolyte abnormalities (eg, severe acidosis or hyperkalemia) [ ]XVI. High fever or other high-risk infection situation as indicated by ANY ONE of the following(61)(62)(63)(64): [ ]a) Outpatient and observation care antimicrobial treatment unavailable, not effective, or not appropriate [ ]b) Documented bacteremia [ ]c) Temperature greater than 40.5 degrees C (104.9 degrees F) ( oral) [ ]d) Temperature greater than 39.5 degrees C (103.1 degrees F) ( oral) or less than 36 degrees C (96.8 degrees F) (rectal) that does not respond to e treatment and observation care [ ] XVII. Temperature less than 95 degrees F (35 degrees C)(rectal)(65) [ ] XVIII. Severe nutritional abnormalities as indicated by ALL of the following (66)(67): [ ]a) Inability to tolerate or establish sufficient oral or other enteral nutrition in outpatient setting [ ]b) Parenteral nutrition regimen need that must be implemented on inpatient basis [ ] XIX. Severe electrolyte abnormalities indicated by ALL of the following(68) (69)(70): [ ]a) Electrolytes and associated findings are not as expected for patient baseline or acceptable treatment effects. [ ]b) Severe abnormalities indicated by ANY ONE of the following: [ ]i) Sodium less than 130 mEq/L (mmol/L) (new) [ ]ii)Sodium less than 135 mEq/L (mmol/L) with ANY ONE of the following: [ ]1) Uncorrectable (to near normal or chronic baseline) after trial of outpatient and emergency treatment [ ]2) Altered mental status [ ]3) Seizures [ ]4) Severe medical etiology requiring inpatient management (eg, heart failure, hypovolemia) [ ]iii) Sodium greater than 155 mEq/L (mmol/L) [ ]iv) Sodium greater than 150 mEq/L (mmol/L) with ANY ONE of the following: [ ]1) Uncorrectable (to near normal or chronic baseline) with outpatient and emergency treatment [ ]2) Altered mental status [ ]3) Seizures [ ]4) Severe medical etiology (eg, hypovolemia, diabetes insipidus) [ ]v) Potassium less than 2.5 mEq/L (mmol/L) despite outpatient and emergency treatment [ ]vi) Potassium less than 3 mEq/L (mmol/L) with ANY ONE of the following: [ ]1) Weakness [ ]2) Cardiac abnormality (eg, arrhythmia, conduction disturbance) [ ]3) Cardiac ischemia [ ]4) Ileus [ ]5) Ongoing medical cause requiring inpatient management (eg, acute renal wasting or SIADH) [ ]6) Other severe symptoms [ ]vii) Potassium greater than 6.5 mEq/L (mmol/L) [ ]viii) Potassium greater than 5 mEq/L (mmol/L) with ANY ONE of the following: [ ]1) Uncorrectable (to near normal or chronic baseline) with outpatient and emergency treatment [ ]2) Severe ECG findings [F] [ ]3) Acute worsening of renal failure (creatinine greater than 2.5 mg/dL (221 micromoles/L) or significant elevation for age and size) [ ]4) Severe weakness [ ]5) Severe medical etiology (eg, hemolysis, infection, drug overdose) [ ]ix) Calcium less than 7 mg/dL (1.75 mmol/L) despite outpatient and emergency treatment (72) [ ]x) Calcium less than 8 mg/dL (2 mmol/L) with significant symptoms or findings; examples include(72): [ ]1) Altered mental status [ ]2) Muscle spasms [ ]3) Seizures [ ]4) Breathing difficulty [ ]5) Cardiac abnormality (eg, arrhythmia or conduction disturbance) [ ]xi) Calcium greater than 14 mg/dL (3.5 mmol/L)(72) [ ]xii) Calcium greater than 12 mg/dL (3 mmol/L) with ANY ONE of the following(72): [ ]1) Uncorrectable (to near normal or chronic baseline) with outpatient and emergency treatment [ ]2) Significant dehydration or hypovolemia as indicated by ALL of the following(70)(73)(74): [ ]A. Not resolved with initial treatments [ ]B. Clinically significant dehydration as indicated by ANY ONE of the following: [ ]a. Vomiting refractory to outpatient treatment (ie, precluding oral rehydration) [ ]b. Inability to drink [ ]c. Hypernatremia or other electrolyte abnormality unable to be corrected with outpatient and emergency treatment [ ]d. Failure to remain hydrated with outpatient therapy [ ]e. Reduced urine output [ ]f. Hypotension [ ]g. Serious cause for dehydration requiring acute hospitalization (eg, bowel obstruction, increased intracranial pressure, infectious cause) [ ]h. Child with ANY ONE of the following(75): [ ]1) Severe abdominal tenderness [ ]2) Adequate care not available at home [ ]3) Severe dehydration ( greater than 9% loss of body weight) [ ]4) Significant symptoms or findings; examples include: [ ]A. Altered mental status [ ]B. Cardiac abnormality (eg, arrhythmia, conduction disturbance) [ ]C. Malignant etiology requiring inpatient treatment [ ]xiii) Phosphorus less than 1 mg/dL (0.32 mmol/L) [ ]xiv) Phosphorus less than 1.5 mg/dL (0.48 mmol/L) with ANY ONE of the following: [ ]1) Patient unresponsive to outpatient and emergency treatment [ ]2) Significant symptoms or findings; examples include: [ ]A. Weakness [ ]B. Altered mental status [ ]C. Breathing difficulty [ ]D. Seizures [ ]E. Rhabdomyolysis [ ]xv) Phosphorus greater than 10 mg/dL (3.2 mmol/L) [ ]xvi) Phosphorus greater than 4.5 mg/dL (1.45 mmol/L) (new) with ANY ONE of the following: [ ]1) Severe medical etiology (eg, crush injury, acute renal failure) [ ]2) Associated hypocalcemia with significant findings; examples include: [ ]A. Neurologic symptoms [ ]B. Altered mental status [ ]C. Muscle spasms [ ]D. Seizures [ ]E. Breathing difficulty [ ]F. Cardiac abnormality (eg, arrhythmia, conduction disturbance) [ ]xvii) Magnesium less than 1 mg/dL (0.41 mmol/L) [ ]xviii) Magnesium less than 1.5 mg/dL (0.62 mmol/L) with ANY ONE of the following: [ ]1) Patient unresponsive to outpatient and emergency treatment [ ]2) Associated hypocalcemia with significant findings; examples include: [ ]A. Altered mental status [ ]B. Muscle spasms [ ]C. Seizures [ ]D. Breathing difficulty [ ]E. Cardiac abnormality (eg, arrhythmia , conduction disturbance) [ ]3) Associated hypokalemia (potassium less than 3 mEq/L (mmol/L)) with risk of arrhythmia [ ]xix) Magnesium greater than 4 mEq/L (2 mmol/L) [ ]xx) Magnesium greater than 2.5 mEq/L (1.25 mmol/L) with significant symptoms or findings; examples include: [ ]1) Weakness [ ]2) Altered mental status [ ]3) Cardiac abnormality (eg, arrhythmia, conduction disturbance) [ ]4) Breathing difficulty [ ]5) Severe medical etiology (eg, renal failure, hypovolemia) [ ]xxi) Uric acid greater than 20 mg/dL (1190 micromoles/L)(76) [ ]xxii) Uric acid greater than 8 mg/dL (476 micromoles/L) with significant symptoms or findings of tumor lysis syndrome; examples include(76): [ ]1) Creatinine greater than 1.5 times upper limit of normal [ ]2) Cardiac abnormality (eg, arrhythmia, conduction disturbance) [ ]3) Seizure [ ]XX. Acute blood loss causing significant abnormality as indicated by ANY ONE of the following(77)(78): [ ]a) Hemoglobin less than 10 g/dL (100 g/L) (not baseline) [ ]b) Hematocrit less than 30% (0.30) (not baseline) [ ]c) Repeat hematocrit decreased more than 2% (0.02) [ ]d) Uncontrolled bleeding [ ]XXI. Severe anemia indicated by ANY ONE of the following(78)(79): [ ]a) Altered mental status [ ]b) Chest pain [ ]c) Exertional dyspnea [ ]d) Syncope [ ]e) Other findings suggesting inadequate perfusion [ ]f) Treatment with transfusion or volume replacement is ineffective at resolving ANY ONE of the following [G]: [ ]i) Tachycardia for age [ ]ii) Orthostatic vital sign changes as indicated by ANY ONE of the following(80): [ ]1) Fall in SBP of 20 mm Hg or more 1 to 3 minutes after patient sits or stands from recumbent position [ ]2) Fall in DBP of 10 mm Hg or more 1 to 3 minutes after patient sits or stands from recumbent position [ ]XXII. High-risk low platelet count as indicated by ANY ONE of the following( 81)(82): [ ]a) Severe or life-threatening bleeding (eg, intracranial, major gastrointestinal, or extensive mucosal bleeding), with any reduced platelet count [ ]b) Platelet count less than 20,000/mm3 (20 x109/L) with any active bleeding [ ]c) Platelet count less than 10,000/mm3 (10 x109/L) with minor purpura or petechiae [ ]d) Platelet count less than 5000/mm3 (5 x109/L) [ ]e) Low platelet count with hemolytic anemia [ ]XXIII. Disseminated intravascular coagulation(77)(83) [ ]XXIV. Severe adverse drug or systemic toxin reaction requiring inpatient treatment; examples include(84)(85): [ ]a) Serotonin syndrome(86) [ ]b) Neuroleptic malignant syndrome(86) [ ]c) Cholinergic syndrome with severe symptoms (eg, bronchorrhea, weakness, mental status changes, seizures) [ ]d) Sympathetic syndrome with severe symptoms (eg, seizures, mental status changes, cardiac dysrhythmias) [ ]e) Anticholinergic syndrome [ ]XXV. Severe pain requiring acute inpatient management as indicated by ALL of the following (87)(88)(89): [ ]a) Continuous or frequent (eg, every 2 to 4 hours) parenteral analgesics required [H] [ ]b) Rapid improvement expected from treatment or acute intervention (eg, surgery, anesthesia procedure) [ ]XXVI.Severe behavioral health issues judged unmanageable at a lower level of care (eg, residential) in a patient who is ANY ONE of the following(91) [ ]a) Acutely suicidal [ ]b) A danger to self (eg, self-mutilating or suicidal behavior) [ ]c) A danger to others (eg, assaultive or homicidal behavior) [ ]d) Incapacitated because of grave disability (eg, inability to provide for self at lower level of care) (92) [ ]XXVII. Inpatient monitoring needed; examples include(1)(3)(87)(93)(94)(95)(96 ): [ ]a) Vital signs, neurologic signs, or vascular checks more frequently than every 4 hours [ ]b) Cardiac or respiratory monitoring beyond the scope (eg, over 24 hours) of observation care [ ]c) Pulmonary artery catheter monitoring [ ]d) Suspected compartment syndrome(97) (98) [ ]e) Cerebral bleeding, hydrocephalus, or vasospasm monitoring [ ]f) Increased intracranial pressure or cerebral edema monitoring [ ]g) monitoring [ ]XXVIII. Treatment requiring inpatient care; examples include: [ ]a) IV fluid to replace significant ongoing losses (greater than 3 L/m2 per day)(53) [ ]b) High concentration oxygen (greater than 40%)(33)(99)(100) [ ]c) Frequent respiratory therapy (more frequently than every 4 hours) to maintain airflow rates greater than 60% of baseline(33)(99)(100) [ ]d) Epidural analgesia(87) [ ]e) IV anticoagulation, vasoactive, or antiarrhythmic medication(19 )(23) [ ]f) Acute thrombolytics (generally require 24 hours of observation )(101)(102) [ ]XXIX. Emergency procedures needed; examples include: [ ]a) Emergency inpatient surgery [ ]b) Temporary pacemaker placement(103) [ ]c) Chest tube placement with active evacuation (eg, suction, drainage)(104) [ ]d) Emergent cardioversion(105) [ ]e) Emergent cardiac or vascular procedures (eg, cardiac catheterization, angioplasty) (17)(18) [ ]f) Emergent dialysis access placement and institution(10)(106) [ ]g) Emergent pericardiocentesis(107) [ ]h) Emergent plasmapheresis or leukapheresis(83) [ ]i) Emergent tracheostomy The original [employer] content created by [employer] has been revised. The portions of the content which have been revised are identified through the use of italic text or in bold, and [facility] [employer] [employer] has neither reviewed nor approved the modified material. All other unmodified content is copyright [employer]. Please see references footnoted in the original [facility] edition 2016 Admission Criteria Met?: Yes MELISSA THORNTON Feb 24, 2017 06:07
[2017-02-24 06:38] LABS: CALCIUM 8.1 mg/dL (8.5-10.1); CREATININE 0.6 mg/dL (0.6-1.0); POTASSIUM 3.5 mmol/L (3.5-5.1)
[2017-02-24 06:41] LABS: MAGNESIUM 1.3 mg/dL (1.8-2.4); PHOSPHORUS 3.4 mg/dL (2.6-4.7)
--- NOTE | 2017-02-24 06:49 | EKG ---
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
--- NOTE | 2017-02-24 07:21 | RAD ---
Portable chest, 02/24/2017: History: Nausea, hyperglycemia Comparison is made to a study from 10/30/2016. A right Port-A-Cath extends into the superior vena cava. The heart size and pulmonary vascularity are normal. No pulmonary infiltrates are seen. There is no evidence of pleural fluid. IMPRESSION: No acute cardiopulmonary abnormality is detected.
[2017-02-24] MEDS ORDERED: DOCUSATE SODIUM 100 MG CAPSULE. PO PRN (09:15)
[2017-02-24] MEDS ORDERED: DEXTROSE 50% 25 GM / 50ML DISP.SYRIN. IV PRN ×2 (09:15→11:15)
[2017-02-24] MEDS ORDERED: traMADol 50 MG TABLET PO PRN (09:15)
[2017-02-24] MEDS ORDERED: MORPHINE SULFATE 2 MG/ML DISP.SYRIN. IV PRN (09:15)
[2017-02-24] MEDS ORDERED: hydrALAZINE 20 MG/ML VIAL. IVP PRN (09:15)
[2017-02-24] MEDS ORDERED: INSU100C SQ (09:26)
[2017-02-24] MEDS ORDERED: INSU100I13 SQ (09:26)
[2017-02-24] MEDS: INSULIN DETEMIR 300 UNITS/3 ML INSULN.PEN. SQ SCH ×2 (09:47→21:00)
[2017-02-24] MEDS: HYDROmorphone 2 MG/ML VIAL IVP PRN ×3 (09:49→22:10)
[2017-02-24] MEDS ORDERED: MAGNESIUM SULFATE 4GM 100 ML IV ONE (10:00)
[2017-02-24] MEDS ORDERED: INSULIN DETEMIR 300 UNITS/3 ML INSULN.PEN. SQ SCH (10:00)
[2017-02-24] MEDS ORDERED: INSULIN ASPART 300 UNITS/3 ML INSULN.PEN SQ SCH (11:30)
[2017-02-24] MEDS ORDERED: INSULIN LISPRO 35 UNIT SQ SCH (12:00)
[2017-02-24] MEDS: INSULIN ASPART 300 UNITS/3 ML INSULN.PEN SQ SCH ×4 (12:11→17:44)
--- NOTE | 2017-02-24 12:32 | PDOC1 ---
History and Physical Date of Admission Date of Admission 02/24/17 Identification/Chief Complaint Chief Complaint left lumb pain Problems: Source Source: Chart review, Patient History of Present Illness History of Present Illness Patient is a 26 year old female who presents with redness, swelling and increased pain to left thumb for 1 day. Pt was here a few month ago for uncontrolled dm1, when she got iv through her left thumb. Since then she started to have the pain and came back for the infection, for which she got I and D by dr. Elias. Then she cont having pain, and she got distal amputation approx 2 weeks ago (at outside facility in [place]), where her parents stay. She was told to cont bactrim and levaquin for another 1month , cannot tell me whether the infection was cleaned well by ortho there, but said the finger was ok , till 2 days ago, with swelling, erythema, and pus exudate, pain. She was here seen by me at the end of November, MRI showed possible osteo, but both ortho and ID didnot feel so, dc home with clindamycin. However, when i asked pt, she cannot remember if took it and not follow dr. Dennis who she supposed to. She came back again 1m ago, also cannot tell me if she was dced with abx. So , this time, pt came back again for same reason, left thumb redness extending to wrist, some pain. She said T 101 at home, but afebrile here. HYperglycemia, again, found in ER. She also had N/V, but again, she told me [facility] was neg before. The truth is i found + gastroparesis in [facility] 01/2016. 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 in the past admissions, She states she dosenot eat much in the hosp, but nurse said she ordered multiple trays. hba1c 8.5 in 11/2016, pt always says her DM2 is controlled. Past Medical History Cardiovascular: HTN Psych: Anxiety Endocrine: Diabetes, Other Past Surgical History Past Surgical History: Appendectomy, Cholecystectomy, , Other Family History Family History: No Significant, Other Family History: Parent Social History Smoke: No ALCOHOL: none Drugs: None Current Problem List Problem List Problems Medical Problems: (1) Cellulitis Status: Acute (2) Diabetic ketoacidosis Status: Acute (3) Hyperglycemia Status: Acute (4) Hyperglycemia due to type 1 diabetes mellitus Status: Acute (5) Inadequate pain control Status: Acute (6) Pain of left thumb Status: Acute (7) Uncontrolled diabetes mellitus Status: Acute Current Medications Current Medications Current Medications Medications (Trade) Dose Ordered Sig/Naya Start Time Stop Time Status Last Admin Dose Admin Acetaminophen (Tylenol) 650 mg PRN Q6HRS PRN 02/24/17 09:15 Clindamycin Phosphate 50 ml @ 100 mls/hr 1X ONCE 02/24/17 04:00 02/24/17 04:29 DC 02/24/17 03:40 100 MLS/HR Dextrose (Dextrose 50%-Water Syringe) 12.5 gm PRN Q15MIN PRN 02/24/17 11:15 UNV Diazepam (Valium) 5 mg PRN Q6HRS PRN 02/24/17 09:15 Docusate Sodium (Colace) 100 mg PRN DAILY PRN 02/24/17 09:15 Hydralazine HCl (Apresoline) 10 mg PRN Q4HRS PRN 02/24/17 09:15 Hydromorphone HCl (Dilaudid) 0.25 mg PRN Q6HRS PRN 02/24/17 09:00 02/24/17 09:49 0.25 MG Insulin Aspart (NovoLOG) 0-9 UNITS TIDWMEALS 02/24/17 12:00 02/24/17 12:12 4 UNITS Insulin Detemir (Levemir) 80 units BID 02/24/17 10:30 02/24/17 09:47 80 UNITS Insulin Human Regular 150 unit/ Sodium Chloride 151.5 ml @ 0 mls/hr CONT PRN PRN 02/24/17 03:15 02/24/17 09:03 DC 02/24/17 03:49 8.2 MLS/HR Magnesium Sulfate/ Dextrose 100 ml @ 25 mls/hr 1X ONCE 02/24/17 10:00 02/24/17 13:59 02/24/17 09:48 25 MLS/HR Morphine Sulfate 2 mg PRN Q2HR PRN 02/24/17 09:15 Non-Formulary Medication 35 unit TIDWMEALS 02/24/17 12:00 UNV Ondansetron HCl (Zofran) 4 mg PRN Q6HRS PRN 02/24/17 09:15 Promethazine HCl 12.5 mg/Sodium Chloride 50.5 ml @ 151.5 mls/ hr PRN Q6HRS PRN 02/24/17 03:30 02/25/17 03:29 02/24/17 10:44 151.5 MLS/HR Sodium Chloride 1,000 ml @ 100 mls/hr 1X ONCE 02/24/17 05:18 02/24/17 15:17 02/24/17 04:45 100 MLS/HR Tramadol HCl (Ultram) 50 mg PRN Q6HRS PRN 02/24/17 09:15 Trazodone HCl (Desyrel) 100 mg QHS 02/24/17 21:00 Vancomycin HCl 1 each 1X ONCE 02/25/17 16:30 02/25/17 16:30 DC Vancomycin HCl (Vanco Per Pharmacy) 1 each PRN DAILY PRN 02/24/17 03:30 02/24/17 09:03 DC 02/24/17 08:01 1 EACH Vancomycin HCl 1.5 gm/Sodium Chloride 500 ml @ 250 mls/hr Q12H 02/24/17 17:00 02/24/17 17:00 DC Vancomycin HCl 2 gm/Sodium Chloride 500 ml @ 250 mls/hr 1X ONCE 02/24/17 04:30 02/24/17 06:29 DC 02/24/17 04:44 250 MLS/HR Allergies Allergies Allergies Coded Allergies Type Severity Reaction Last Updated Verified Penicillins Allergy Severe ANAPHYLAXIS, cefepime ok 11/12/16 Yes codeine Allergy Intermediate Tolerates Dilaudid, MORPHINE 11/12/16 Yes doxycycline Allergy Intermediate 11/12/16 Yes fentanyl Allergy Intermediate 11/12/16 Yes hydrocodone Adverse Reaction Intermediate itching 11/12/16 Yes ROS Review of System CONSTITUTIONAL: No fever or chills EYES: No recent changes SKIN: No rash or itching CARDIOVASCULAR: No chest pain, syncope, palpitations, or edema RESPIRATORY: No SOB or cough GASTROINTESTINAL: No nausea, vomiting or abdominal pain NEUROLOGICAL: No headaches or weakness ENDOCRINE: No cold or heat intolerance GENITOURINARY: No urgency or frequency of urination MUSCULOSKELETAL: No back pain or joint pain LYMPHATICS: No enlarged lymph nodes PSYCHIATRIC: No anxiety or depression Physical Exam Physical Exam GEN.: No apparent distress. Alert and oriented. HEENT: Head is normocephalic, atraumatic NECK: Supple. LUNGS: Clear to auscultation. HEART: RRR, S1, S2 present. Peripheral pulses intact ABDOMEN: Soft, nontender. Positive bowel sounds. EXTREMITIES: Without any cyanosis. NEUROLOGIC: Normal speech, normal tone PSYCHIATRIC: Normal affect, normal mood. SKIN: LEFT thumb no open wound, s/p partial amputation, some redness extended to wrist. Vitals Vitals Vital Signs Date Time Temp Pulse Resp B/P (MAP) Pulse Ox O2 Delivery O2 Flow Rate FiO2 02/24/17 12:05 98.5 110 19 108/49 (68) 97 Room Air 98.5 Labs Labs Laboratory Tests Test 02/24/17 02:05 02/24/17 02:27 02/24/17 03:17 02/24/17 04:16 White Blood Count 7.3 x10^3/uL (4.0-11.0) Red Blood Count 3.90 x10^6/uL (3.50-5.40) Hemoglobin 8.6 g/dL (12.0-15.5) Hematocrit 28.2 % (36.0-47.0) Mean Corpuscular Volume 72 fL (79-100) Mean Corpuscular Hemoglobin 22 pg (25-35) Mean Corpuscular Hemoglobin Concent 30 g/dL (31-37) Red Cell Distribution Width 17.7 % (11.5-14.5) Platelet Count 265 x10^3/uL (140-400) Neutrophils (%) (Auto) 56 % (31-73) Lymphocytes (%) (Auto) 35 % (24-48) Monocytes (%) (Auto) 8 % (0-9) Eosinophils (%) (Auto) 1 % (0-3) Basophils (%) (Auto) 1 % (0-3) Neutrophils # (Auto) 4.1 x10^3uL (1.8-7.7) Lymphocytes # (Auto) 2.5 x10^3/uL (1.0-4.8) Monocytes # (Auto) 0.6 x10^3/uL (0.0-1.1) Eosinophils # (Auto) 0.1 x10^3/uL (0.0-0.7) Basophils # (Auto) 0.0 x10^3/uL (0.0-0.2) Platelet Estimate Adequate (ADEQUATE) Polychromasia Slight Hypochromasia Slight Poikilocytosis Slight Microcytosis Slight Macrocytosis Slight Target Cells Occ Ovalocytes Occ Sodium Level 129 mmol/L (136-145) Potassium Level 3.8 mmol/L (3.5-5.1) Chloride Level 93 mmol/L (98-107) Carbon Dioxide Level 19 mmol/L (21-32) Anion Gap 17 (6-14) Blood Urea Nitrogen 14 mg/dL (7-20) Creatinine 1.1 mg/dL (0.6-1.0) Estimated GFR (Cockcroft-Gault) 59.1 BUN/Creatinine Ratio 13 (6-20) Glucose Level 667 mg/dL (70-99) Lactic Acid Level 5.6 mmol/L (0.4-2.0) Calcium Level 8.9 mg/dL (8.5-10.1) Phosphorus Level 4.3 mg/dL (2.6-4.7) Magnesium Level 1.5 mg/dL (1.8-2.4) Total Bilirubin 0.3 mg/dL (0.2-1.0) Aspartate Amino Transf (AST/SGOT) 35 U/L (15-37) Alanine Aminotransferase (ALT/SGPT) 27 U/L (14-59) Alkaline Phosphatase 169 U/L (46-116) Total Protein 7.4 g/dL (6.4-8.2) Albumin 3.6 g/dL (3.4-5.0) Albumin/Globulin Ratio 0.9 (1.0-1.7) Lipase 141 U/L (73-393) Urine Collection Type Unknown Urine Color Yellow Urine Clarity Clear Urine pH 6.0 Urine Specific [place] >=1.030 Urine Protein Negative mg/dL (NEG-TRACE) Urine Glucose (UA) >=1000 mg/dL (NEG) Urine Ketones (Stick) Negative mg/dL (NEG) Urine Blood Negative (NEG) Urine Nitrite Negative (NEG) Urine Bilirubin Negative (NEG) Urine Urobilinogen Dipstick 0.2 mg/dL (0.2 mg/dL) Urine Leukocyte Esterase Negative (NEG) Urine RBC 1-2 /HPF (0-2) Urine WBC 1-4 /HPF (0-4) Urine Squamous Epithelial Cells Mod /LPF Urine Bacteria Few /HPF (0-FEW) Urine Yeast Present /HPF Urine Test Negative (NEG) Urine Opiates Screen Neg (NEG) Urine Methadone Screen Neg (NEG) Urine Barbiturates Neg (NEG) Urine Phencyclidine Screen Neg (NEG) Urine Amphetamine/Methamphetamine Neg (NEG) Urine Benzodiazepines Screen Neg (NEG) Urine Cocaine Screen Neg (NEG) Urine Cannabinoids Screen Neg (NEG) Urine Ethyl Alcohol Neg (NEG) Glucose (Fingerstick) 469 mg/dL (70-99) Bedside Venous pH 7.31 (7.32-7.42) Bedside Venous pCO2 40 mmHg (41-51) Bedside Venous pO2 46 mmHg (20-40) Venous Blood HCO3 20 mmol/L (24-28) POC Venous O2 Saturation (Mandy) 77 % Bedside FiO2 37 Test 02/24/17 04:40 02/24/17 05:39 02/24/17 06:02 02/24/17 07:11 Glucose (Fingerstick) 286 mg/dL (70-99) 265 mg/dL (70-99) 199 mg/dL (70-99) Sodium Level 136 mmol/L (136-145) Potassium Level 3.5 mmol/L (3.5-5.1) Chloride Level 104 mmol/L (98-107) Carbon Dioxide Level 21 mmol/L (21-32) Anion Gap 11 (6-14) Blood Urea Nitrogen 10 mg/dL (7-20) Creatinine 0.6 mg/dL (0.6-1.0) Estimated GFR (Cockcroft-Gault) 119.0 Glucose Level 286 mg/dL (70-99) Lactic Acid Level 1.5 mmol/L (0.4-2.0) Calcium Level 8.1 mg/dL (8.5-10.1) Phosphorus Level 3.4 mg/dL (2.6-4.7) Magnesium Level 1.3 mg/dL (1.8-2.4) Test 02/24/17 08:18 02/24/17 09:28 02/24/17 11:52 Glucose (Fingerstick) 149 mg/dL (70-99) 132 mg/dL (70-99) 173 mg/dL (70-99) Laboratory Tests Test 02/24/17 02:05 02/24/17 02:27 02/24/17 03:17 02/24/17 04:16 White Blood Count 7.3 x10^3/uL (4.0-11.0) Red Blood Count 3.90 x10^6/uL (3.50-5.40) Hemoglobin 8.6 g/dL (12.0-15.5) Hematocrit 28.2 % (36.0-47.0) Mean Corpuscular Volume 72 fL (79-100) Mean Corpuscular Hemoglobin 22 pg (25-35) Mean Corpuscular Hemoglobin Concent 30 g/dL (31-37) Red Cell Distribution Width 17.7 % (11.5-14.5) Platelet Count 265 x10^3/uL (140-400) Neutrophils (%) (Auto) 56 % (31-73) Lymphocytes (%) (Auto) 35 % (24-48) Monocytes (%) (Auto) 8 % (0-9) Eosinophils (%) (Auto) 1 % (0-3) Basophils (%) (Auto) 1 % (0-3) Neutrophils # (Auto) 4.1 x10^3uL (1.8-7.7) Lymphocytes # (Auto) 2.5 x10^3/uL (1.0-4.8) Monocytes # (Auto) 0.6 x10^3/uL (0.0-1.1) Eosinophils # (Auto) 0.1 x10^3/uL (0.0-0.7) Basophils # (Auto) 0.0 x10^3/uL (0.0-0.2) Platelet Estimate Adequate (ADEQUATE) Polychromasia Slight Hypochromasia Slight Poikilocytosis Slight Microcytosis Slight Macrocytosis Slight Target Cells Occ Ovalocytes Occ Sodium Level 129 mmol/L (136-145) Potassium Level 3.8 mmol/L (3.5-5.1) Chloride Level 93 mmol/L (98-107) Carbon Dioxide Level 19 mmol/L (21-32) Anion Gap 17 (6-14) Blood Urea Nitrogen 14 mg/dL (7-20) Creatinine 1.1 mg/dL (0.6-1.0) Estimated GFR (Cockcroft-Gault) 59.1 BUN/Creatinine Ratio 13 (6-20) Glucose Level 667 mg/dL (70-99) Lactic Acid Level 5.6 mmol/L (0.4-2.0) Calcium Level 8.9 mg/dL (8.5-10.1) Phosphorus Level 4.3 mg/dL (2.6-4.7) Magnesium Level 1.5 mg/dL (1.8-2.4) Total Bilirubin 0.3 mg/dL (0.2-1.0) Aspartate Amino Transf (AST/SGOT) 35 U/L (15-37) Alanine Aminotransferase (ALT/SGPT) 27 U/L (14-59) Alkaline Phosphatase 169 U/L (46-116) Total Protein 7.4 g/dL (6.4-8.2) Albumin 3.6 g/dL (3.4-5.0) Albumin/Globulin Ratio 0.9 (1.0-1.7) Lipase 141 U/L (73-393) Urine Collection Type Unknown Urine Color Yellow Urine Clarity Clear Urine pH 6.0 Urine Specific [place] >=1.030 Urine Protein Negative mg/dL (NEG-TRACE) Urine Glucose (UA) >=1000 mg/dL (NEG) Urine Ketones (Stick) Negative mg/dL (NEG) Urine Blood Negative (NEG) Urine Nitrite Negative (NEG) Urine Bilirubin Negative (NEG) Urine Urobilinogen Dipstick 0.2 mg/dL (0.2 mg/dL) Urine Leukocyte Esterase Negative (NEG) Urine RBC 1-2 /HPF (0-2) Urine WBC 1-4 /HPF (0-4) Urine Squamous Epithelial Cells Mod /LPF Urine Bacteria Few /HPF (0-FEW) Urine Yeast Present /HPF Urine Test Negative (NEG) Urine Opiates Screen Neg (NEG) Urine Methadone Screen Neg (NEG) Urine Barbiturates Neg (NEG) Urine Phencyclidine Screen Neg (NEG) Urine Amphetamine/Methamphetamine Neg (NEG) Urine Benzodiazepines Screen Neg (NEG) Urine Cocaine Screen Neg (NEG) Urine Cannabinoids Screen Neg (NEG) Urine Ethyl Alcohol Neg (NEG) Glucose (Fingerstick) 469 mg/dL (70-99) Bedside Venous pH 7.31 (7.32-7.42) Bedside Venous pCO2 40 mmHg (41-51) Bedside Venous pO2 46 mmHg (20-40) Venous Blood HCO3 20 mmol/L (24-28) POC Venous O2 Saturation (Mandy) 77 % Bedside FiO2 37 Test 02/24/17 04:40 02/24/17 05:39 02/24/17 06:02 02/24/17 07:11 Glucose (Fingerstick) 286 mg/dL (70-99) 265 mg/dL (70-99) 199 mg/dL (70-99) Sodium Level 136 mmol/L (136-145) Potassium Level 3.5 mmol/L (3.5-5.1) Chloride Level 104 mmol/L (98-107) Carbon Dioxide Level 21 mmol/L (21-32) Anion Gap 11 (6-14) Blood Urea Nitrogen 10 mg/dL (7-20) Creatinine 0.6 mg/dL (0.6-1.0) Estimated GFR (Cockcroft-Gault) 119.0 Glucose Level 286 mg/dL (70-99) Lactic Acid Level 1.5 mmol/L (0.4-2.0) Calcium Level 8.1 mg/dL (8.5-10.1) Phosphorus Level 3.4 mg/dL (2.6-4.7) Magnesium Level 1.3 mg/dL (1.8-2.4) Test 02/24/17 08:18 02/24/17 09:28 02/24/17 11:52 Glucose (Fingerstick) 149 mg/dL (70-99) 132 mg/dL (70-99) 173 mg/dL (70-99) VTE Prophylaxis Ordered VTE Prophylaxis Devices: No VTE Pharmacological Prophylaxi: Yes Assessment/Plan Assessment/Plan 1. h/o left thumb recurrent cellulitis, post recent amputation, now looks stable to me 2. uncontrolled dm1. 11/2016 Hba1c 8.5 3. h/o MRSA 4. MORBID Obesity 5. fatty liver 6. anxiety 7. anemia, likely 2/2 inflammation, iron deficiency, vitb12 lower side 8, likely medical care seeker hypomagnesemia severe gastraporesis plan: id consult i dc abx for now resume home meds, HIGH dose insulin, ssi dc insulin drip replete Mag unfortunately, pt is not reliable to believe and kept telling me dosenot remember , not follow dr. Dennis as supposed to, and kept coming to hosp to see for medical care. transfer out of ICU. KENNY MELENDEZ MD Feb 24, 2017 12:32
[2017-02-24] MEDS: ONDANSETRON PF 4 MG/2 ML VIAL. IV PRN (16:08)
[2017-02-24] MEDS: ENOXAPARIN 40 MG/0.4 ML SYRINGE. SQ SCH (16:10)
[2017-02-24] MEDS ORDERED: VANCOMYCIN 1.5 GM in IV NORMAL SALINE 500ML BAG 500 ML IV SCH (17:00)
[2017-02-24] MEDS ORDERED: INSULIN GLARGINE HUM REC ANLOG 80 UNIT SQ SCH (21:00)
[2017-02-24] MEDS: traZODone 100 MG TABLET. PO SCH (22:10)
[2017-02-25 02:53] VITALS: BP 188/66
[2017-02-25] MEDS: traMADol 50 MG TABLET PO PRN ×3 (03:16→22:05)
[2017-02-25] MEDS: HYDROmorphone 2 MG/ML VIAL IVP PRN ×3 (04:23→21:17)
[2017-02-25] MEDS: ONDANSETRON PF 4 MG/2 ML VIAL. IV PRN ×2 (04:34→15:31)
[2017-02-25 04:48] LABS: BASO % 0 % (0-3); EOS % 0 % (0-3); HEMOGLOBIN 8.2 g/dL (12.0-15.5); LYMPH # 0.7 x10^3/uL (1.0-4.8); LYMPH % 12 % (24-48); MEAN CORPUSCULAR HEMOGLOBIN 23 pg (25-35); MEAN CORPUSCULAR HGB CONC 33 g/dL (31-37); MEAN CORPUSCULAR VOLUME 69 fL (79-100); MONO % 5 % (0-9); NEUT % 83 % (31-73); PLATELET COUNT 229 x10^3/uL (140-400); RED BLOOD COUNT 3.61 x10^6/uL (3.50-5.40); RED CELL DISTRIBUTION WIDTH 17.4 % (11.5-14.5); WHITE BLOOD COUNT 5.6 x10^3/uL (4.0-11.0)
[2017-02-25 05:13] LABS: CREATININE 0.7 mg/dL (0.6-1.0); GFR 99.6
[2017-02-25 07:00] VITALS: BP 104/48
[2017-02-25] MEDS: INSULIN DETEMIR 300 UNITS/3 ML INSULN.PEN. SQ SCH ×2 (08:33→21:33)
[2017-02-25] MEDS: INSULIN ASPART 300 UNITS/3 ML INSULN.PEN SQ SCH ×6 (08:33→17:25)
[2017-02-25 11:00] VITALS: BP 129/64
--- NOTE | 2017-02-25 13:47 | PDOC ---
PROGRESS NOTES Chief Complaint Chief Complaint 1. left thumb recurrent cellulitis, post recent amputation, 2. labile dm1. 11/2016 Hba1c 8.5 3. h/o MRSA 4. Obesity, BMI 35 5. fatty liver 6. anxiety d/o 7. anemia, likely 2/2 inflammation, iron deficiency, vitb12 lower side 8, hypomagnesemia 9. Hx gastroparesis History of Present Illness History of Present Illness id consult cont vanco, febrile last night, blood cx taken,, will cx if febrile HIGH dose insulin, ssi for Dm1 replete Mag pain control Q4 PRN Vitals Vitals Vital Signs Date Time Temp Pulse Resp B/P (MAP) Pulse Ox O2 Delivery O2 Flow Rate FiO2 02/25/17 11:00 104 129/64 (85) 98 Room Air 02/25/17 07:00 98.0 18 98.0 Physical Exam General: Alert, Oriented X3, Cooperative, No acute distress Heart: Regular rate Lungs: Clear, Other Abdomen: Normal bowel sounds, No tenderness Extremities: No clubbing, Other (left thumb, s/p partial amputation, red, tender, minor swollen. I am unsure of baseline) Skin: No rashes, No breakdown Labs LABS Laboratory Tests Test 02/24/17 16:12 02/24/17 21:32 02/25/17 04:40 02/25/17 07:55 Glucose (Fingerstick) 91 mg/dL (70-99) 52 mg/dL (70-99) 287 mg/dL (70-99) White Blood Count 5.6 x10^3/uL (4.0-11.0) Red Blood Count 3.61 x10^6/uL (3.50-5.40) Hemoglobin 8.2 g/dL (12.0-15.5) Hematocrit 25.0 % (36.0-47.0) Mean Corpuscular Volume 69 fL (79-100) Mean Corpuscular Hemoglobin 23 pg (25-35) Mean Corpuscular Hemoglobin Concent 33 g/dL (31-37) Red Cell Distribution Width 17.4 % (11.5-14.5) Platelet Count 229 x10^3/uL (140-400) Neutrophils (%) (Auto) 83 % (31-73) Lymphocytes (%) (Auto) 12 % (24-48) Monocytes (%) (Auto) 5 % (0-9) Eosinophils (%) (Auto) 0 % (0-3) Basophils (%) (Auto) 0 % (0-3) Neutrophils # (Auto) 4.6 x10^3uL (1.8-7.7) Lymphocytes # (Auto) 0.7 x10^3/uL (1.0-4.8) Monocytes # (Auto) 0.3 x10^3/uL (0.0-1.1) Eosinophils # (Auto) 0.0 x10^3/uL (0.0-0.7) Basophils # (Auto) 0.0 x10^3/uL (0.0-0.2) Sodium Level 137 mmol/L (136-145) Potassium Level 4.0 mmol/L (3.5-5.1) Chloride Level 104 mmol/L (98-107) Carbon Dioxide Level 20 mmol/L (21-32) Anion Gap 13 (6-14) Blood Urea Nitrogen 6 mg/dL (7-20) Creatinine 0.7 mg/dL (0.6-1.0) Estimated GFR (Cockcroft-Gault) 99.6 Glucose Level 210 mg/dL (70-99) Calcium Level 8.0 mg/dL (8.5-10.1) Test 02/25/17 11:21 Glucose (Fingerstick) 153 mg/dL (70-99) Review of Systems Review of Systems thumb pain normal stool no n,v.d Assessment and Plan Assessmemt and Plan Problems Medical Problems: (1) Cellulitis Status: Acute (2) Diabetic ketoacidosis Status: Acute (3) Hyperglycemia Status: Acute (4) Hyperglycemia due to type 1 diabetes mellitus Status: Acute (5) Inadequate pain control Status: Acute (6) Pain of left thumb Status: Acute (7) Uncontrolled diabetes mellitus Status: Acute Problems: Comment Review of Relevant I have reviewed the following items lizbeth (where applicable) has been applied. Labs Laboratory Tests Test 02/24/17 02:05 02/24/17 02:27 02/24/17 03:17 02/24/17 04:16 White Blood Count 7.3 x10^3/uL (4.0-11.0) Red Blood Count 3.90 x10^6/uL (3.50-5.40) Hemoglobin 8.6 g/dL (12.0-15.5) Hematocrit 28.2 % (36.0-47.0) Mean Corpuscular Volume 72 fL (79-100) Mean Corpuscular Hemoglobin 22 pg (25-35) Mean Corpuscular Hemoglobin Concent 30 g/dL (31-37) Red Cell Distribution Width 17.7 % (11.5-14.5) Platelet Count 265 x10^3/uL (140-400) Neutrophils (%) (Auto) 56 % (31-73) Lymphocytes (%) (Auto) 35 % (24-48) Monocytes (%) (Auto) 8 % (0-9) Eosinophils (%) (Auto) 1 % (0-3) Basophils (%) (Auto) 1 % (0-3) Neutrophils # (Auto) 4.1 x10^3uL (1.8-7.7) Lymphocytes # (Auto) 2.5 x10^3/uL (1.0-4.8) Monocytes # (Auto) 0.6 x10^3/uL (0.0-1.1) Eosinophils # (Auto) 0.1 x10^3/uL (0.0-0.7) Basophils # (Auto) 0.0 x10^3/uL (0.0-0.2) Platelet Estimate Adequate (ADEQUATE) Polychromasia Slight Hypochromasia Slight Poikilocytosis Slight Microcytosis Slight Macrocytosis Slight Target Cells Occ Ovalocytes Occ Sodium Level 129 mmol/L (136-145) Potassium Level 3.8 mmol/L (3.5-5.1) Chloride Level 93 mmol/L (98-107) Carbon Dioxide Level 19 mmol/L (21-32) Anion Gap 17 (6-14) Blood Urea Nitrogen 14 mg/dL (7-20) Creatinine 1.1 mg/dL (0.6-1.0) Estimated GFR (Cockcroft-Gault) 59.1 BUN/Creatinine Ratio 13 (6-20) Glucose Level 667 mg/dL (70-99) Lactic Acid Level 5.6 mmol/L (0.4-2.0) Calcium Level 8.9 mg/dL (8.5-10.1) Phosphorus Level 4.3 mg/dL (2.6-4.7) Magnesium Level 1.5 mg/dL (1.8-2.4) Total Bilirubin 0.3 mg/dL (0.2-1.0) Aspartate Amino Transf (AST/SGOT) 35 U/L (15-37) Alanine Aminotransferase (ALT/SGPT) 27 U/L (14-59) Alkaline Phosphatase 169 U/L (46-116) Total Protein 7.4 g/dL (6.4-8.2) Albumin 3.6 g/dL (3.4-5.0) Albumin/Globulin Ratio 0.9 (1.0-1.7) Lipase 141 U/L (73-393) Urine Collection Type Unknown Urine Color Yellow Urine Clarity Clear Urine pH 6.0 Urine Specific Boles >=1.030 Urine Protein Negative mg/dL (NEG-TRACE) Urine Glucose (UA) >=1000 mg/dL (NEG) Urine Ketones (Stick) Negative mg/dL (NEG) Urine Blood Negative (NEG) Urine Nitrite Negative (NEG) Urine Bilirubin Negative (NEG) Urine Urobilinogen Dipstick 0.2 mg/dL (0.2 mg/dL) Urine Leukocyte Esterase Negative (NEG) Urine RBC 1-2 /HPF (0-2) Urine WBC 1-4 /HPF (0-4) Urine Squamous Epithelial Cells Mod /LPF Urine Bacteria Few /HPF (0-FEW) Urine Yeast Present /HPF Urine Test Negative (NEG) Urine Opiates Screen Neg (NEG) Urine Methadone Screen Neg (NEG) Urine Barbiturates Neg (NEG) Urine Phencyclidine Screen Neg (NEG) Urine Amphetamine/Methamphetamine Neg (NEG) Urine Benzodiazepines Screen Neg (NEG) Urine Cocaine Screen Neg (NEG) Urine Cannabinoids Screen Neg (NEG) Urine Ethyl Alcohol Neg (NEG) Glucose (Fingerstick) 469 mg/dL (70-99) Bedside Venous pH 7.31 (7.32-7.42) Bedside Venous pCO2 40 mmHg (41-51) Bedside Venous pO2 46 mmHg (20-40) Venous Blood HCO3 20 mmol/L (24-28) POC Venous O2 Saturation (Mandy) 77 % Bedside FiO2 37 Test 02/24/17 04:40 02/24/17 05:39 02/24/17 06:02 02/24/17 07:11 Glucose (Fingerstick) 286 mg/dL (70-99) 265 mg/dL (70-99) 199 mg/dL (70-99) Nasal Screen MRSA (PCR) Negative (Negative) Sodium Level 136 mmol/L (136-145) Potassium Level 3.5 mmol/L (3.5-5.1) Chloride Level 104 mmol/L (98-107) Carbon Dioxide Level 21 mmol/L (21-32) Anion Gap 11 (6-14) Blood Urea Nitrogen 10 mg/dL (7-20) Creatinine 0.6 mg/dL (0.6-1.0) Estimated GFR (Cockcroft-Gault) 119.0 Glucose Level 286 mg/dL (70-99) Lactic Acid Level 1.5 mmol/L (0.4-2.0) Calcium Level 8.1 mg/dL (8.5-10.1) Phosphorus Level 3.4 mg/dL (2.6-4.7) Magnesium Level 1.3 mg/dL (1.8-2.4) Test 02/24/17 08:18 02/24/17 09:28 02/24/17 11:52 02/24/17 13:31 Glucose (Fingerstick) 149 mg/dL (70-99) 132 mg/dL (70-99) 173 mg/dL (70-99) 164 mg/dL (70-99) Test 02/24/17 16:12 02/24/17 21:32 02/25/17 04:40 02/25/17 07:55 Glucose (Fingerstick) 91 mg/dL (70-99) 52 mg/dL (70-99) 287 mg/dL (70-99) White Blood Count 5.6 x10^3/uL (4.0-11.0) Red Blood Count 3.61 x10^6/uL (3.50-5.40) Hemoglobin 8.2 g/dL (12.0-15.5) Hematocrit 25.0 % (36.0-47.0) Mean Corpuscular Volume 69 fL (79-100) Mean Corpuscular Hemoglobin 23 pg (25-35) Mean Corpuscular Hemoglobin Concent 33 g/dL (31-37) Red Cell Distribution Width 17.4 % (11.5-14.5) Platelet Count 229 x10^3/uL (140-400) Neutrophils (%) (Auto) 83 % (31-73) Lymphocytes (%) (Auto) 12 % (24-48) Monocytes (%) (Auto) 5 % (0-9) Eosinophils (%) (Auto) 0 % (0-3) Basophils (%) (Auto) 0 % (0-3) Neutrophils # (Auto) 4.6 x10^3uL (1.8-7.7) Lymphocytes # (Auto) 0.7 x10^3/uL (1.0-4.8) Monocytes # (Auto) 0.3 x10^3/uL (0.0-1.1) Eosinophils # (Auto) 0.0 x10^3/uL (0.0-0.7) Basophils # (Auto) 0.0 x10^3/uL (0.0-0.2) Sodium Level 137 mmol/L (136-145) Potassium Level 4.0 mmol/L (3.5-5.1) Chloride Level 104 mmol/L (98-107) Carbon Dioxide Level 20 mmol/L (21-32) Anion Gap 13 (6-14) Blood Urea Nitrogen 6 mg/dL (7-20) Creatinine 0.7 mg/dL (0.6-1.0) Estimated GFR (Cockcroft-Gault) 99.6 Glucose Level 210 mg/dL (70-99) Calcium Level 8.0 mg/dL (8.5-10.1) Test 02/25/17 11:21 Glucose (Fingerstick) 153 mg/dL (70-99) Laboratory Tests Test 02/24/17 16:12 02/24/17 21:32 02/25/17 04:40 02/25/17 07:55 Glucose (Fingerstick) 91 mg/dL (70-99) 52 mg/dL (70-99) 287 mg/dL (70-99) White Blood Count 5.6 x10^3/uL (4.0-11.0) Red Blood Count 3.61 x10^6/uL (3.50-5.40) Hemoglobin 8.2 g/dL (12.0-15.5) Hematocrit 25.0 % (36.0-47.0) Mean Corpuscular Volume 69 fL (79-100) Mean Corpuscular Hemoglobin 23 pg (25-35) Mean Corpuscular Hemoglobin Concent 33 g/dL (31-37) Red Cell Distribution Width 17.4 % (11.5-14.5) Platelet Count 229 x10^3/uL (140-400) Neutrophils (%) (Auto) 83 % (31-73) Lymphocytes (%) (Auto) 12 % (24-48) Monocytes (%) (Auto) 5 % (0-9) Eosinophils (%) (Auto) 0 % (0-3) Basophils (%) (Auto) 0 % (0-3) Neutrophils # (Auto) 4.6 x10^3uL (1.8-7.7) Lymphocytes # (Auto) 0.7 x10^3/uL (1.0-4.8) Monocytes # (Auto) 0.3 x10^3/uL (0.0-1.1) Eosinophils # (Auto) 0.0 x10^3/uL (0.0-0.7) Basophils # (Auto) 0.0 x10^3/uL (0.0-0.2) Sodium Level 137 mmol/L (136-145) Potassium Level 4.0 mmol/L (3.5-5.1) Chloride Level 104 mmol/L (98-107) Carbon Dioxide Level 20 mmol/L (21-32) Anion Gap 13 (6-14) Blood Urea Nitrogen 6 mg/dL (7-20) Creatinine 0.7 mg/dL (0.6-1.0) Estimated GFR (Cockcroft-Gault) 99.6 Glucose Level 210 mg/dL (70-99) Calcium Level 8.0 mg/dL (8.5-10.1) Test 02/25/17 11:21 Glucose (Fingerstick) 153 mg/dL (70-99) Microbiology 02/24/17 Blood Culture - Preliminary, Resulted NO GROWTH AFTER 1 DAY Medications Current Medications Ondansetron HCl (Zofran) 4 mg 1X ONCE IV Last administered on 02/24/17 02:29 ; Start 02/24/17 at 02:00; Stop 02/24/17 at 02:01; Status DC Sodium Chloride 1,000 ml @ 1,000 mls/hr 1X ONCE IV Last administered on 02:16; Start 02/24/17 at 02:00; Stop 02/24/17 at 03:00; Status DC Sodium Chloride 1,000 ml @ 1,000 mls/hr 1X ONCE IV Last administered on 02:22; Start 02/24/17 at 02:30; Stop 02/24/17 at 03:29; Status DC Sodium Chloride 1,000 ml @ 1,000 mls/hr Q1H IV Last administered on 02/24/17 03:05; Start 02/24/17 at 03:05; Stop 02/24/17 at 04:04; Status DC Insulin Human Regular 150 unit/ Sodium Chloride 151.5 ml @ 0 mls/hr CONT PRN PRN IV PER PROTOCOL Last administered on 02/24/17 03:49; Start 02/24/17 at 03: 15; Stop 02/24/17 at 09:03; Status DC Vancomycin HCl (Vanco Per Pharmacy) 1 each PRN DAILY PRN MC SEE COMMENTS Last administered on 02/24/17 08:01; Start 02/24/17 at 03:30; Stop 02/24/17 at 09:03 ; Status DC Clindamycin Phosphate 50 ml @ 100 mls/hr 1X ONCE IV Last administered on 02/24 03:40; Start 02/24/17 at 04:00; Stop 02/24/17 at 04:29; Status DC Hydromorphone HCl (Dilaudid) 1 mg 1X ONCE IV Last administered on 02/24/17 03 :45; Start 02/24/17 at 04:00; Stop 02/24/17 at 04:01; Status DC Promethazine HCl 12.5 mg/Sodium Chloride 50.5 ml @ 151.5 mls/ hr PRN Q6HRS PRN IV NAUSEA/VOMITING Last administered on 02/24/17 10:44; Start 02/24/17 at 03:30; Stop 02/25/17 at 03:29; Status DC Vancomycin HCl 2 gm/Sodium Chloride 500 ml @ 250 mls/hr 1X ONCE IV Last administered on 02/24/17 04:44; Start 02/24/17 at 04:30; Stop 02/24/17 at 06:29 ; Status DC Ondansetron HCl (Zofran) 4 mg PRN Q8HRS PRN IV NAUSEA/VOMITING Last administered on 02/24/17 06:13; Start 02/24/17 at 03:30; Stop 02/24/17 at 09:14 ; Status DC Acetaminophen (Tylenol) 650 mg PRN Q4HRS PRN PO FEVER Last administered on 02/25 03:17; Start 02/24/17 at 03:30; Stop 02/25/17 at 03:29; Status DC Sodium Chloride 1,000 ml @ 100 mls/hr 1X ONCE IV Last administered on 04:45; Start 02/24/17 at 05:18; Stop 02/24/17 at 15:17; Status DC Vancomycin HCl 1.5 gm/Sodium Chloride 500 ml @ 250 mls/hr Q12H IV ; Start 02/24 at 17:00; Stop 02/24/17 at 17:00; Status DC Vancomycin HCl 1 each 1X ONCE MC ; Start 02/25/17 at 16:30; Stop 02/25/17 at 16 :30; Status DC Hydromorphone HCl (Dilaudid) 1 mg PRN Q6HRS PRN IVP SEVERE PAIN; Start at 06:00; Stop 02/24/17 at 09:03; Status DC Hydromorphone HCl (Dilaudid) 0.25 mg PRN Q6HRS PRN IVP SEVERE PAIN Last administered on 02/25/17 04:23; Start 02/24/17 at 09:00 Magnesium Sulfate/ Dextrose 100 ml @ 25 mls/hr 1X ONCE IV Last administered on 02/24/17 09:48; Start 02/24/17 at 10:00; Stop 02/24/17 at 13:59; Status DC Diazepam (Valium) 5 mg PRN Q6HRS PRN PO ANXIETY; Start 02/24/17 at 09:15 Insulin Aspart (NovoLOG) 45 units TIDAC SQ ; Start 02/24/17 at 11:30; Stop 02/24 at 11:30; Status DC Insulin Detemir (Levemir) 85 units BID SQ ; Start 02/24/17 at 10:00; Stop at 10:00; Status DC Tramadol HCl (Ultram) 50 mg PRN Q6HRS PRN PO PAIN; Start 02/24/17 at 09:15; Stop 02/24/17 at 09:15; Status DC Trazodone HCl (Desyrel) 100 mg QHS PO Last administered on 02/24/17 22:10; Start 02/24/17 at 21:00 Dextrose (Dextrose 50%-Water Syringe) 12.5 gm PRN Q15MIN PRN IV SEE COMMENTS; Start 02/24/17 at 09:15 Acetaminophen (Tylenol) 650 mg PRN Q6HRS PRN PO FEVER; Start 02/24/17 at 09:15 Ondansetron HCl (Zofran) 4 mg PRN Q6HRS PRN IV NAUSEA/VOMITING Last administered on 02/25/17 04:34; Start 02/24/17 at 09:15 Morphine Sulfate 2 mg PRN Q2HR PRN IV PAIN; Start 02/24/17 at 09:15 Tramadol HCl (Ultram) 50 mg PRN Q6HRS PRN PO PAIN Last administered on 03:16; Start 02/24/17 at 09:15 Hydralazine HCl (Apresoline) 10 mg PRN Q4HRS PRN IVP ELEVATED BP, SEE COMMENTS ; Start 02/24/17 at 09:15 Docusate Sodium (Colace) 100 mg PRN DAILY PRN PO CONSTIPATION; Start 02/24/17 at 09:15 Non-Formulary Medication 80 unit Q12HR SQ ; Start 02/24/17 at 21:00; Status UNV Non-Formulary Medication 35 unit TIDWMEALS SQ ; Start 02/24/17 at 12:00; Status UNV Insulin Aspart (NovoLOG) 35 units TIDAC SQ Last administered on 02/25/17 08:33 ; Start 02/24/17 at 11:30 Insulin Detemir (Levemir) 80 units BID SQ Last administered on 02/25/17 08:33 ; Start 02/24/17 at 10:30 Insulin Aspart (NovoLOG) 0-9 UNITS TIDWMEALS SQ Last administered on 02/25/17 08:34; Start 02/24/17 at 12:00 Dextrose (Dextrose 50%-Water Syringe) 12.5 gm PRN Q15MIN PRN IV SEE COMMENTS; Start 02/24/17 at 11:15; Status UNV Metoclopramide HCl (Reglan) 10 mg PRN Q6HRS PRN IV NAUSEA/VOMITING; Start 02/24 at 12:30 Enoxaparin Sodium (Lovenox 40mg Syringe) 40 mg Q24H SQ Last administered on t 16:10; Start 02/24/17 at 15:00 Active Scripts Active Ultram (Tramadol Hcl) 50 Mg Tablet 50 Mg PO Q6H PRN Reported Humalog (Insulin Lispro) 100 Unit/1 Ml Cartridge 35 Unit SQ TIDWMEALS Lantus Solostar (Insulin Glargine,Hum.rec.anlog) 100 Unit/1 Ml Insuln.pen 80 Unit SQ Q12HR Diazepam 5 Mg Tablet 5 Mg PO PRN Q6HRS Trazodone Hcl 100 Mg Tablet 1 Tab PO QHS Vitals/I & O Vital Sign - Last 24 Hours 02/24/17 02/24/17 02/24/17 02/24/17 15:59 16:07 19:46 20:00 Temp 98.1 99.0 98.1 99.0 Pulse 109 114 Resp 19 18 18 B/P (MAP) 122/70 (87) 130/70 (90) Pulse Ox 97 98 98 O2 Delivery Room Air Room Air Room Air Room Air 02/24/17 02/24/17 02/25/17 02/25/17 22:10 23:29 02:53 02:57 Temp 99.0 102.8 100.2 99.0 102.8 100.2 Pulse 114 121 Resp 20 18 18 B/P (MAP) 130/70 (90) 188/66 (106) Pulse Ox 97 98 97 O2 Delivery Room Air Room Air Room Air 02/25/17 02/25/17 02/25/17 02/25/17 03:16 04:16 04:23 04:53 Resp 18 20 18 20 Pulse Ox 96 96 96 96 O2 Delivery Room Air Room Air Room Air Room Air 02/25/17 02/25/17 02/25/17 07:00 08:00 11:00 Temp 98.0 98.0 Pulse 111 104 Resp 18 B/P (MAP) 104/48 (66) 129/64 (85) Pulse Ox 92 98 O2 Delivery Room Air Room Air Room Air Intake and Output 02/24/17 02/24/17 02/25/17 15:00 23:00 07:00 Intake Total 220 ml 500 ml 800 ml Balance 220 ml 500 ml 800 ml MILTON WARE MD Feb 25, 2017 13:47
[2017-02-25] MEDS: VANCOMYCIN PER PHARMACY MC PRN ×2 (13:52→15:22)
[2017-02-25] MEDS ORDERED: MAGNESIUM SULFATE 2GM 50 ML IV ONE (14:00)
[2017-02-25] MEDS ORDERED: VANCOMYCIN 2 GM in IV NORMAL SALINE 500ML BAG 500 ML IV ONE (14:00)
[2017-02-25 15:00] VITALS: BP 115/70
[2017-02-25] MEDS: ENOXAPARIN 40 MG/0.4 ML SYRINGE. SQ SCH (15:24)
[2017-02-25 19:00] VITALS: BP 107/53
[2017-02-25] MEDS: traZODone 100 MG TABLET. PO SCH (21:16)
[2017-02-25] MEDS: METOCLOPRAMIDE HCL 10 MG/2 ML VIAL. IV PRN (21:16)
[2017-02-25] MEDS: VANCOMYCIN 1.5 GM in IV NORMAL SALINE 500ML BAG 500 ML IV SCH (22:06)
[2017-02-25 23:00] VITALS: BP 118/58
[2017-02-26] MEDS: HYDROmorphone 2 MG/ML VIAL IVP PRN ×6 (02:02→22:17)
[2017-02-26 03:00] VITALS: BP 103/57
[2017-02-26] MEDS: ACETAMINOPHEN 325 MG TABLET. PO PRN ×3 (03:27→20:09)
[2017-02-26] MEDS: traMADol 50 MG TABLET PO PRN ×4 (04:08→20:04)
--- NOTE | 2017-02-26 05:14 | CONS ---
DATE OF CONSULTATION: 02/25/2017 REQUESTING PHYSICIAN: Maricel Kline M.D. REASON FOR CONSULTATION: Left thumb pain, redness and swelling. HISTORY OF PRESENT ILLNESS: The patient is a 26-year-old female who was admitted for other medical issues at [facility] earlier this year, apparently had an infiltration of an IV site and caused severe swelling and blistering of her thumb. She subsequently underwent irrigation and debridement, developed osteomyelitis and required thumb amputation that she states was done elsewhere subsequently. She indicates nausea, vomiting and elevation of her blood sugars prior to admission as well as pain and swelling to her left thumb at the amputation site and some redness going up the radial aspect of the left arm over the past couple of days. PAST MEDICAL HISTORY: Significant for type 1 diabetes, MRSA, ventral hernia, chronic abdominal pain, ovarian cyst, neuropathy. PAST SURGICAL HISTORY: Significant for left thumb amputation, appendectomy, cholecystectomy, oophorectomy, ovarian cyst, hernia repair. FAMILY HISTORY: Noncontributory. SOCIAL HISTORY: Denies tobacco, alcohol or drug use. MEDICATIONS: List is reviewed. ALLERGIES: INCLUDE PENICILLIN, DOXYCYCLINE, HYDROCODONE, CODEINE AND FENTANYL. REVIEW OF SYSTEMS: Appeared to have been consistent with diabetic ketoacidosis on admission, which has since resolved. She said a lot of the redness in the arm is now gone. Thumb is really not significantly red anymore, it is less tender. She does have some tenderness over the radial aspect of the wrist with motion of the thumb, but seems to be significantly improved since admission. PHYSICAL EXAMINATION: On examination of the left thumb, she really has no significant tenderness over the flexor or extensor tendon sheaths. To the base of the thumb, she does have in the first dorsal compartment slightly proximal in the wrist a bit of tenderness with a positive Charli's test. Pain is not to the extent of any tenosynovitis, however. She has reasonable wrist range of motion. Range of motion of the other fingers with no signs of tenosynovitis whatsoever. Her thumb amputation site appears to be well healed with a large volar flap overriding. There is no evidence of any type of fluctuance, real redness or drainage present currently or real point tenderness on palpation. She does have limited motion overall of the interphalangeal joint of the thumb, however, no tenderness at the basilar thumb joint. IMPRESSION: 1. Apparent cellulitis of the thumb and radial arm on admission, now significantly resolved. 2. History of left thumb amputation secondary to osteomyelitis. TREATMENT PLAN: At this time, her white count was normal at 7.6 on admission. She really does not have any outward physical examination signs of infection, any fluid collection, tenosynovitis. I suggest that given the current improvement that she has had and absence of any direct evidence of infection that we just observe and continue her on some antibiotics and supportive care. She agrees at this time with nonoperative treatment and observation. SETH MEJIA MD DR: GREG/ric JOB#: [id number] / [id number]
[2017-02-26] MEDS: VANCOMYCIN 1.5 GM in IV NORMAL SALINE 500ML BAG 500 ML IV SCH ×3 (07:05→23:07)
[2017-02-26 07:20] LABS: BASO % 1 % (0-3); EOS % 1 % (0-3); HEMATOCRIT 23.3 % (36.0-47.0); HEMOGLOBIN 7.2 g/dL (12.0-15.5); LYMPH # 2.3 x10^3/uL (1.0-4.8); LYMPH % 41 % (24-48); MEAN CORPUSCULAR HEMOGLOBIN 22 pg (25-35); MEAN CORPUSCULAR HGB CONC 31 g/dL (31-37); MEAN CORPUSCULAR VOLUME 71 fL (79-100); MONO % 8 % (0-9); NEUT % 50 % (31-73); PLATELET COUNT 196 x10^3/uL (140-400); RED BLOOD COUNT 3.28 x10^6/uL (3.50-5.40); RED CELL DISTRIBUTION WIDTH 17.5 % (11.5-14.5); WHITE BLOOD COUNT 5.6 x10^3/uL (4.0-11.0)
[2017-02-26 07:23] VITALS: BP 106/55
[2017-02-26 07:44] LABS: ALBUMIN/GLOBULIN RATIO 0.9 (1.0-1.7); CALCIUM 8.1 mg/dL (8.5-10.1); CREATININE 0.7 mg/dL (0.6-1.0); GFR 99.6; TOTAL BILIRUBIN 0.2 mg/dL (0.2-1.0); TOTAL PROTEIN 6.4 g/dL (6.4-8.2)
[2017-02-26 07:48] LABS: % SAT IRON 2 % (15-34); IRON,SERUM 10 ug/dL (50-170)
[2017-02-26] MEDS: INSULIN ASPART 300 UNITS/3 ML INSULN.PEN SQ SCH ×6 (08:00→17:00)
[2017-02-26] MEDS: INSULIN DETEMIR 300 UNITS/3 ML INSULN.PEN. SQ SCH ×2 (08:37→21:11)
[2017-02-26] MEDS ORDERED: HYDROmorphone 2 MG/ML VIAL IVP PRN (09:00)
[2017-02-26] MEDS: ONDANSETRON PF 4 MG/2 ML VIAL. IV PRN ×2 (10:09→22:16)
[2017-02-26 11:10] VITALS: BP 101/49
[2017-02-26 15:05] VITALS: BP 103/54
[2017-02-26] MEDS: ENOXAPARIN 40 MG/0.4 ML SYRINGE. SQ SCH (15:05)
--- NOTE | 2017-02-26 17:00 | PDOC ---
PROGRESS NOTES Subjective Subjective Problems overnight: Complains of fever overnight still has pain over the radial aspect of her left wrist, really not at the tip of the thumb Objective Vital Signs Vital Signs Date Time Temp Pulse Resp B/P (MAP) Pulse Ox O2 Delivery O2 Flow Rate FiO2 02/26/17 16:31 98 Room Air 02/26/17 15:05 99.1 107 16 103/54 (70) 99.1 Physical Exam On examination she is tender over the first dorsal compartment but really not over the thumb extensor itself. There is no redness or erythema at the thumb, amputation site is well-healed reasonable motion at the basilar thumb joint less so at the interphalangeal joint but only mildly painful on motion. There is no evidence of any fluctuance. She has normal motion of the other fingers and no signs of tenosynovitis Labs Laboratory Tests Test 02/24/17 21:32 02/25/17 04:40 02/25/17 07:55 02/25/17 11:21 Glucose (Fingerstick) 52 mg/dL (70-99) 287 mg/dL (70-99) 153 mg/dL (70-99) White Blood Count 5.6 x10^3/uL (4.0-11.0) Red Blood Count 3.61 x10^6/uL (3.50-5.40) Hemoglobin 8.2 g/dL (12.0-15.5) Hematocrit 25.0 % (36.0-47.0) Mean Corpuscular Volume 69 fL (79-100) Mean Corpuscular Hemoglobin 23 pg (25-35) Mean Corpuscular Hemoglobin Concent 33 g/dL (31-37) Red Cell Distribution Width 17.4 % (11.5-14.5) Platelet Count 229 x10^3/uL (140-400) Neutrophils (%) (Auto) 83 % (31-73) Lymphocytes (%) (Auto) 12 % (24-48) Monocytes (%) (Auto) 5 % (0-9) Eosinophils (%) (Auto) 0 % (0-3) Basophils (%) (Auto) 0 % (0-3) Neutrophils # (Auto) 4.6 x10^3uL (1.8-7.7) Lymphocytes # (Auto) 0.7 x10^3/uL (1.0-4.8) Monocytes # (Auto) 0.3 x10^3/uL (0.0-1.1) Eosinophils # (Auto) 0.0 x10^3/uL (0.0-0.7) Basophils # (Auto) 0.0 x10^3/uL (0.0-0.2) Sodium Level 137 mmol/L (136-145) Potassium Level 4.0 mmol/L (3.5-5.1) Chloride Level 104 mmol/L (98-107) Carbon Dioxide Level 20 mmol/L (21-32) Anion Gap 13 (6-14) Blood Urea Nitrogen 6 mg/dL (7-20) Creatinine 0.7 mg/dL (0.6-1.0) Estimated GFR (Cockcroft-Gault) 99.6 Glucose Level 210 mg/dL (70-99) Calcium Level 8.0 mg/dL (8.5-10.1) Test 02/25/17 17:16 02/25/17 20:34 02/26/17 07:00 02/26/17 07:36 Glucose (Fingerstick) 216 mg/dL (70-99) 204 mg/dL (70-99) 146 mg/dL (70-99) White Blood Count 5.6 x10^3/uL (4.0-11.0) Red Blood Count 3.28 x10^6/uL (3.50-5.40) Hemoglobin 7.2 g/dL (12.0-15.5) Hematocrit 23.3 % (36.0-47.0) Mean Corpuscular Volume 71 fL (79-100) Mean Corpuscular Hemoglobin 22 pg (25-35) Mean Corpuscular Hemoglobin Concent 31 g/dL (31-37) Red Cell Distribution Width 17.5 % (11.5-14.5) Platelet Count 196 x10^3/uL (140-400) Neutrophils (%) (Auto) 50 % (31-73) Lymphocytes (%) (Auto) 41 % (24-48) Monocytes (%) (Auto) 8 % (0-9) Eosinophils (%) (Auto) 1 % (0-3) Basophils (%) (Auto) 1 % (0-3) Neutrophils # (Auto) 2.8 x10^3uL (1.8-7.7) Lymphocytes # (Auto) 2.3 x10^3/uL (1.0-4.8) Monocytes # (Auto) 0.4 x10^3/uL (0.0-1.1) Eosinophils # (Auto) 0.0 x10^3/uL (0.0-0.7) Basophils # (Auto) 0.0 x10^3/uL (0.0-0.2) Sodium Level 136 mmol/L (136-145) Potassium Level 4.0 mmol/L (3.5-5.1) Chloride Level 103 mmol/L (98-107) Carbon Dioxide Level 23 mmol/L (21-32) Anion Gap 10 (6-14) Blood Urea Nitrogen 6 mg/dL (7-20) Creatinine 0.7 mg/dL (0.6-1.0) Estimated GFR (Cockcroft-Gault) 99.6 BUN/Creatinine Ratio 9 (6-20) Glucose Level 143 mg/dL (70-99) Calcium Level 8.1 mg/dL (8.5-10.1) Iron Level 10 ug/dL (50-170) Total Iron Binding Capacity 416 ug/dL (250-450) Iron Saturation 2 % (15-34) Total Bilirubin 0.2 mg/dL (0.2-1.0) Aspartate Amino Transf (AST/SGOT) 54 U/L (15-37) Alanine Aminotransferase (ALT/SGPT) 51 U/L (14-59) Alkaline Phosphatase 193 U/L (46-116) Total Protein 6.4 g/dL (6.4-8.2) Albumin 3.0 g/dL (3.4-5.0) Albumin/Globulin Ratio 0.9 (1.0-1.7) Test 02/26/17 11:48 Glucose (Fingerstick) 163 mg/dL (70-99) Laboratory Tests Test 02/25/17 17:16 02/25/17 20:34 02/26/17 07:00 02/26/17 07:36 Glucose (Fingerstick) 216 mg/dL (70-99) 204 mg/dL (70-99) 146 mg/dL (70-99) White Blood Count 5.6 x10^3/uL (4.0-11.0) Red Blood Count 3.28 x10^6/uL (3.50-5.40) Hemoglobin 7.2 g/dL (12.0-15.5) Hematocrit 23.3 % (36.0-47.0) Mean Corpuscular Volume 71 fL (79-100) Mean Corpuscular Hemoglobin 22 pg (25-35) Mean Corpuscular Hemoglobin Concent 31 g/dL (31-37) Red Cell Distribution Width 17.5 % (11.5-14.5) Platelet Count 196 x10^3/uL (140-400) Neutrophils (%) (Auto) 50 % (31-73) Lymphocytes (%) (Auto) 41 % (24-48) Monocytes (%) (Auto) 8 % (0-9) Eosinophils (%) (Auto) 1 % (0-3) Basophils (%) (Auto) 1 % (0-3) Neutrophils # (Auto) 2.8 x10^3uL (1.8-7.7) Lymphocytes # (Auto) 2.3 x10^3/uL (1.0-4.8) Monocytes # (Auto) 0.4 x10^3/uL (0.0-1.1) Eosinophils # (Auto) 0.0 x10^3/uL (0.0-0.7) Basophils # (Auto) 0.0 x10^3/uL (0.0-0.2) Sodium Level 136 mmol/L (136-145) Potassium Level 4.0 mmol/L (3.5-5.1) Chloride Level 103 mmol/L (98-107) Carbon Dioxide Level 23 mmol/L (21-32) Anion Gap 10 (6-14) Blood Urea Nitrogen 6 mg/dL (7-20) Creatinine 0.7 mg/dL (0.6-1.0) Estimated GFR (Cockcroft-Gault) 99.6 BUN/Creatinine Ratio 9 (6-20) Glucose Level 143 mg/dL (70-99) Calcium Level 8.1 mg/dL (8.5-10.1) Iron Level 10 ug/dL (50-170) Total Iron Binding Capacity 416 ug/dL (250-450) Iron Saturation 2 % (15-34) Total Bilirubin 0.2 mg/dL (0.2-1.0) Aspartate Amino Transf (AST/SGOT) 54 U/L (15-37) Alanine Aminotransferase (ALT/SGPT) 51 U/L (14-59) Alkaline Phosphatase 193 U/L (46-116) Total Protein 6.4 g/dL (6.4-8.2) Albumin 3.0 g/dL (3.4-5.0) Albumin/Globulin Ratio 0.9 (1.0-1.7) Test 02/26/17 11:48 Glucose (Fingerstick) 163 mg/dL (70-99) Assessment Assessment 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 Given her previous history of osteomyelitis and some redness that is now resolved I would not recommend any steroid injection in the area, only support and symptomatic management. Continue medical supportive treatment antibiotics and observation SETH MEJIA MD Feb 26, 2017 17:00
[2017-02-26 19:00] VITALS: BP 102/54
[2017-02-26] MEDS: diazePAM 5 MG TABLET PO PRN (22:17)
[2017-02-26] MEDS: traZODone 100 MG TABLET. PO SCH (22:17)
[2017-02-26 23:00] VITALS: BP 113/63
[2017-02-26] MEDS: VANCOMYCIN PER PHARMACY MC PRN ×2 (23:39→23:41)
[2017-02-27] MEDS: traMADol 50 MG TABLET PO PRN ×5 (00:10→21:53)
[2017-02-27] MEDS: HYDROmorphone 2 MG/ML VIAL IVP PRN ×6 (02:19→23:54)
[2017-02-27 03:00] VITALS: BP 99/60
[2017-02-27] MEDS: VANCOMYCIN 1.5 GM in IV NORMAL SALINE 500ML BAG 500 ML IV SCH ×3 (06:35→22:06)
[2017-02-27 07:15] VITALS: BP 113/65
[2017-02-27] MEDS: INSULIN ASPART 300 UNITS/3 ML INSULN.PEN SQ SCH ×6 (07:30→17:35)
[2017-02-27] MEDS: INSULIN DETEMIR 300 UNITS/3 ML INSULN.PEN. SQ SCH ×2 (08:47→22:00)
[2017-02-27] MEDS: ONDANSETRON PF 4 MG/2 ML VIAL. IV PRN ×2 (10:32→15:29)
[2017-02-27 11:29] VITALS: BP 110/55
--- NOTE | 2017-02-27 13:12 | PDOC ---
PROGRESS NOTES Chief Complaint Chief Complaint CC left thumb recurrent cellulitis status post amputation DM1 chronic abdominal pain History of Present Illness History of Present Illness 26 y/o F with CC of left thumb recurrent cellulitis status post amputation pt was found supine on bed, non distressed and pleasant cont vanco pain control Q4 PRN Vitals Vitals Vital Signs Date Time Temp Pulse Resp B/P (MAP) Pulse Ox O2 Delivery O2 Flow Rate FiO2 02/27/17 11:29 98.3 90 18 110/55 (73) 97 Room Air 98.3 Physical Exam General: Alert, Oriented X3, Cooperative, mild distress Heart: Regular rate, Normal S1, Normal S2, No murmurs Lungs: Clear, Other Abdomen: Normal bowel sounds, No tenderness Extremities: No clubbing, Other (left thumb, s/p partial amputation, red, tender, minor swollen. ) Skin: No rashes, No breakdown Labs LABS Laboratory Tests Test 02/26/17 16:52 02/26/17 20:51 02/26/17 22:15 02/27/17 07:21 Glucose (Fingerstick) 100 mg/dL (70-99) 134 mg/dL (70-99) 185 mg/dL (70-99) Vancomycin Level Trough 10.4 mcg/mL (10.0-20.0) Vancomycin Last Dose Date 02/26/17 Vancomycin Last Dose Time 0700 Test 02/27/17 11:53 Glucose (Fingerstick) 251 mg/dL (70-99) Review of Systems Review of Systems complains of weakness tender left thumb Assessment and Plan Assessmemt and Plan Problems Medical Problems: (1) Cellulitis Status: Acute (2) Diabetic ketoacidosis Status: Acute (3) Hyperglycemia Status: Acute (4) Hyperglycemia due to type 1 diabetes mellitus Status: Acute (5) Inadequate pain control Status: Acute (6) Pain of left thumb Status: Acute (7) Uncontrolled diabetes mellitus Status: Acute PLAN -await MRI results -PO PRN tramadol, tylenol -continue narcotics, encourage PO intake -PT -continue home meds Problems: Comment Review of Relevant I have reviewed the following items lizbeth (where applicable) has been applied. Labs Laboratory Tests Test 02/25/17 17:16 02/25/17 20:34 02/26/17 06:15 02/26/17 07:00 Glucose (Fingerstick) 216 mg/dL (70-99) 204 mg/dL (70-99) Hemoglobin A1c 9.0 % (4.8-5.6) White Blood Count 5.6 x10^3/uL (4.0-11.0) Red Blood Count 3.28 x10^6/uL (3.50-5.40) Hemoglobin 7.2 g/dL (12.0-15.5) Hematocrit 23.3 % (36.0-47.0) Mean Corpuscular Volume 71 fL (79-100) Mean Corpuscular Hemoglobin 22 pg (25-35) Mean Corpuscular Hemoglobin Concent 31 g/dL (31-37) Red Cell Distribution Width 17.5 % (11.5-14.5) Platelet Count 196 x10^3/uL (140-400) Neutrophils (%) (Auto) 50 % (31-73) Lymphocytes (%) (Auto) 41 % (24-48) Monocytes (%) (Auto) 8 % (0-9) Eosinophils (%) (Auto) 1 % (0-3) Basophils (%) (Auto) 1 % (0-3) Neutrophils # (Auto) 2.8 x10^3uL (1.8-7.7) Lymphocytes # (Auto) 2.3 x10^3/uL (1.0-4.8) Monocytes # (Auto) 0.4 x10^3/uL (0.0-1.1) Eosinophils # (Auto) 0.0 x10^3/uL (0.0-0.7) Basophils # (Auto) 0.0 x10^3/uL (0.0-0.2) Sodium Level 136 mmol/L (136-145) Potassium Level 4.0 mmol/L (3.5-5.1) Chloride Level 103 mmol/L (98-107) Carbon Dioxide Level 23 mmol/L (21-32) Anion Gap 10 (6-14) Blood Urea Nitrogen 6 mg/dL (7-20) Creatinine 0.7 mg/dL (0.6-1.0) Estimated GFR (Cockcroft-Gault) 99.6 BUN/Creatinine Ratio 9 (6-20) Glucose Level 143 mg/dL (70-99) Calcium Level 8.1 mg/dL (8.5-10.1) Iron Level 10 ug/dL (50-170) Total Iron Binding Capacity 416 ug/dL (250-450) Iron Saturation 2 % (15-34) Total Bilirubin 0.2 mg/dL (0.2-1.0) Aspartate Amino Transf (AST/SGOT) 54 U/L (15-37) Alanine Aminotransferase (ALT/SGPT) 51 U/L (14-59) Alkaline Phosphatase 193 U/L (46-116) Total Protein 6.4 g/dL (6.4-8.2) Albumin 3.0 g/dL (3.4-5.0) Albumin/Globulin Ratio 0.9 (1.0-1.7) Test 02/26/17 07:36 02/26/17 11:48 02/26/17 16:52 02/26/17 20:51 Glucose (Fingerstick) 146 mg/dL (70-99) 163 mg/dL (70-99) 100 mg/dL (70-99) 134 mg/dL (70-99) Test 02/26/17 22:15 02/27/17 07:21 02/27/17 11:53 Vancomycin Level Trough 10.4 mcg/mL (10.0-20.0) Vancomycin Last Dose Date 02/26/17 Vancomycin Last Dose Time 0700 Glucose (Fingerstick) 185 mg/dL (70-99) 251 mg/dL (70-99) Laboratory Tests Test 02/26/17 16:52 02/26/17 20:51 02/26/17 22:15 02/27/17 07:21 Glucose (Fingerstick) 100 mg/dL (70-99) 134 mg/dL (70-99) 185 mg/dL (70-99) Vancomycin Level Trough 10.4 mcg/mL (10.0-20.0) Vancomycin Last Dose Date 02/26/17 Vancomycin Last Dose Time 0700 Test 02/27/17 11:53 Glucose (Fingerstick) 251 mg/dL (70-99) Microbiology 02/25/17 Blood Culture - Preliminary, Resulted NO GROWTH AFTER 1 DAY Medications Current Medications Ondansetron HCl (Zofran) 4 mg 1X ONCE IV Last administered on 02/24/17t 02:29 ; Start 02/24/17 at 02:00; Stop 02/24/17 at 02:01; Status DC Sodium Chloride 1,000 ml @ 1,000 mls/hr 1X ONCE IV Last administered on 02:16; Start 02/24/17 at 02:00; Stop 02/24/17 at 03:00; Status DC Sodium Chloride 1,000 ml @ 1,000 mls/hr 1X ONCE IV Last administered on 02:22; Start 02/24/17 at 02:30; Stop 02/24/17 at 03:29; Status DC Sodium Chloride 1,000 ml @ 1,000 mls/hr Q1H IV Last administered on 02/24/17 03:05; Start 02/24/17 at 03:05; Stop 02/24/17 at 04:04; Status DC Insulin Human Regular 150 unit/ Sodium Chloride 151.5 ml @ 0 mls/hr CONT PRN PRN IV PER PROTOCOL Last administered on 02/24/17 03:49; Start 02/24/17 at 03: 15; Stop 02/24/17 at 09:03; Status DC Vancomycin HCl (Vanco Per Pharmacy) 1 each PRN DAILY PRN MC SEE COMMENTS Last administered on 02/24/17 08:01; Start 02/24/17 at 03:30; Stop 02/24/17 at 09:03 ; Status DC Clindamycin Phosphate 50 ml @ 100 mls/hr 1X ONCE IV Last administered on 02/24 03:40; Start 02/24/17 at 04:00; Stop 02/24/17 at 04:29; Status DC Hydromorphone HCl (Dilaudid) 1 mg 1X ONCE IV Last administered on 02/24/17 03 :45; Start 02/24/17 at 04:00; Stop 02/24/17 at 04:01; Status DC Promethazine HCl 12.5 mg/Sodium Chloride 50.5 ml @ 151.5 mls/ hr PRN Q6HRS PRN IV NAUSEA/VOMITING Last administered on 02/24/17 10:44; Start 02/24/17 at 03:30; Stop 02/25/17 at 03:29; Status DC Vancomycin HCl 2 gm/Sodium Chloride 500 ml @ 250 mls/hr 1X ONCE IV Last administered on 02/24/17 04:44; Start 02/24/17 at 04:30; Stop 02/24/17 at 06:29 ; Status DC Ondansetron HCl (Zofran) 4 mg PRN Q8HRS PRN IV NAUSEA/VOMITING Last administered on 02/24/17 06:13; Start 02/24/17 at 03:30; Stop 02/24/17 at 09:14 ; Status DC Acetaminophen (Tylenol) 650 mg PRN Q4HRS PRN PO FEVER Last administered on 02/25 03:17; Start 02/24/17 at 03:30; Stop 02/25/17 at 03:29; Status DC Sodium Chloride 1,000 ml @ 100 mls/hr 1X ONCE IV Last administered on 04:45; Start 02/24/17 at 05:18; Stop 02/24/17 at 15:17; Status DC Vancomycin HCl 1.5 gm/Sodium Chloride 500 ml @ 250 mls/hr Q12H IV ; Start 02/24 at 17:00; Stop 02/24/17 at 17:00; Status DC Vancomycin HCl 1 each 1X ONCE MC ; Start 02/25/17 at 16:30; Stop 02/25/17 at 16 :30; Status DC Hydromorphone HCl (Dilaudid) 1 mg PRN Q6HRS PRN IVP SEVERE PAIN; Start at 06:00; Stop 02/24/17 at 09:03; Status DC Hydromorphone HCl (Dilaudid) 0.25 mg PRN Q6HRS PRN IVP SEVERE PAIN Last administered on 02/25/17 04:23; Start 02/24/17 at 09:00; Stop 02/25/17 at 13:35 ; Status DC Magnesium Sulfate/ Dextrose 100 ml @ 25 mls/hr 1X ONCE IV Last administered on 02/24/17 09:48; Start 02/24/17 at 10:00; Stop 02/24/17 at 13:59; Status DC Diazepam (Valium) 5 mg PRN Q6HRS PRN PO ANXIETY Last administered on 02/26/17 22:17; Start 02/24/17 at 09:15 Insulin Aspart (NovoLOG) 45 units TIDAC SQ ; Start 02/24/17 at 11:30; Stop 02/24 at 11:30; Status DC Insulin Detemir (Levemir) 85 units BID SQ ; Start 02/24/17 at 10:00; Stop at 10:00; Status DC Tramadol HCl (Ultram) 50 mg PRN Q6HRS PRN PO PAIN; Start 02/24/17 at 09:15; Stop 02/24/17 at 09:15; Status DC Trazodone HCl (Desyrel) 100 mg QHS PO Last administered on 02/26/17 22:17; Start 02/24/17 at 21:00 Dextrose (Dextrose 50%-Water Syringe) 12.5 gm PRN Q15MIN PRN IV SEE COMMENTS; Start 02/24/17 at 09:15 Acetaminophen (Tylenol) 650 mg PRN Q6HRS PRN PO FEVER Last administered on 02/26 20:09; Start 02/24/17 at 09:15 Ondansetron HCl (Zofran) 4 mg PRN Q6HRS PRN IV NAUSEA/VOMITING Last administered on 02/27/17 10:32; Start 02/24/17 at 09:15 Morphine Sulfate 2 mg PRN Q2HR PRN IV PAIN; Start 02/24/17 at 09:15 Tramadol HCl (Ultram) 50 mg PRN Q6HRS PRN PO PAIN Last administered on 10:51; Start 02/24/17 at 09:15; Stop 02/26/17 at 12:34; Status DC Hydralazine HCl (Apresoline) 10 mg PRN Q4HRS PRN IVP ELEVATED BP, SEE COMMENTS ; Start 02/24/17 at 09:15 Docusate Sodium (Colace) 100 mg PRN DAILY PRN PO CONSTIPATION; Start 02/24/17 at 09:15 Non-Formulary Medication 80 unit Q12HR SQ ; Start 02/24/17 at 21:00; Status UNV Non-Formulary Medication 35 unit TIDWMEALS SQ ; Start 02/24/17 at 12:00; Status UNV Insulin Aspart (NovoLOG) 35 units TIDAC SQ Last administered on 02/27/17 11:30 ; Start 02/24/17 at 11:30 Insulin Detemir (Levemir) 80 units BID SQ Last administered on 02/27/17 08:47 ; Start 02/24/17 at 10:30 Insulin Aspart (NovoLOG) 0-9 UNITS TIDWMEALS SQ Last administered on 02/27/17 12:36; Start 02/24/17 at 12:00 Dextrose (Dextrose 50%-Water Syringe) 12.5 gm PRN Q15MIN PRN IV SEE COMMENTS; Start 02/24/17 at 11:15; Status UNV Metoclopramide HCl (Reglan) 10 mg PRN Q6HRS PRN IV NAUSEA/VOMITING Last administered on 02/25/17 21:16; Start 02/24/17 at 12:30 Enoxaparin Sodium (Lovenox 40mg Syringe) 40 mg Q24H SQ Last administered on 15:05; Start 02/24/17 at 15:00 Hydromorphone HCl (Dilaudid) 0.8 mg PRN Q4HRS PRN IVP SEVERE PAIN; Start at 09:00; Stop 02/26/17 at 09:00; Status DC Magnesium Sulfate/ Dextrose 50 ml @ 25 mls/hr 1X ONCE IV Last administered on 02/25/17 18:15; Start 02/25/17 at 14:00; Stop 02/25/17 at 15:59; Status DC Vancomycin HCl (Vanco Per Pharmacy) 1 each PRN DAILY PRN MC SEE COMMENTS Last administered on 02/26/17 23:41; Start 02/25/17 at 13:45 Vancomycin HCl 2 gm/Sodium Chloride 500 ml @ 250 mls/hr 1X ONCE IV Last administered on 02/25/17 15:10; Start 02/25/17 at 14:00; Stop 02/25/17 at 15:59 ; Status DC Vancomycin HCl 1.5 gm/Sodium Chloride 500 ml @ 250 mls/hr Q8H IV Last administered on 02/27/17 06:35; Start 02/25/17 at 23:00 Vancomycin HCl 1 each 1X ONCE MC ; Start 02/26/17 at 14:30; Stop 02/26/17 at 14 :31; Status DC Hydromorphone HCl (Dilaudid) 0.8 mg PRN Q4HRS PRN IVP SEVERE PAIN Last administered on 02/27/17 10:34; Start 02/25/17 at 17:15 Tramadol HCl (Ultram) 50 mg PRN Q4HRS PRN PO PAIN Last administered on t 08:29; Start 02/26/17 at 14:45 Active Scripts Active Ultram (Tramadol Hcl) 50 Mg Tablet 50 Mg PO Q6H PRN Reported Humalog (Insulin Lispro) 100 Unit/1 Ml Cartridge 35 Unit SQ TIDWMEALS Lantus Solostar (Insulin Glargine,Hum.rec.anlog) 100 Unit/1 Ml Insuln.pen 80 Unit SQ Q12HR Diazepam 5 Mg Tablet 5 Mg PO PRN Q6HRS Trazodone Hcl 100 Mg Tablet 1 Tab PO QHS Vitals/I & O Vital Sign - Last 24 Hours 02/26/17 02/26/17 02/26/17 02/26/17 14:10 15:03 15:05 18:14 Temp 99.1 99.1 Pulse 107 Resp 16 B/P (MAP) 103/54 (70) Pulse Ox 98 98 92 98 O2 Delivery Room Air Room Air Room Air Room Air 02/26/17 02/26/17 02/26/17 02/26/17 19:00 20:00 20:04 22:17 Temp 99.5 99.5 Pulse 103 Resp 20 20 20 B/P (MAP) 102/54 (70) Pulse Ox 95 O2 Delivery Room Air Room Air Room Air Room Air 02/26/17 02/27/17 02/27/17 02/27/17 23:00 00:10 02:19 02:49 Temp 99.2 99.2 Pulse 98 Resp 20 20 20 18 B/P (MAP) 113/63 (80) Pulse Ox 94 O2 Delivery Room Air Room Air Room Air 02/27/17 02/27/17 02/27/17 02/27/17 03:00 04:20 05:20 06:36 Temp 99.3 99.3 Pulse 93 Resp 20 20 20 20 B/P (MAP) 99/60 (73) Pulse Ox 94 O2 Delivery Room Air Room Air Room Air 02/27/17 02/27/17 02/27/17 02/27/17 07:15 08:00 08:29 09:49 Temp 98.5 98.5 Pulse 97 Resp 18 B/P (MAP) 113/65 (81) Pulse Ox 93 93 93 O2 Delivery Room Air Room Air Room Air Room Air 02/27/17 02/27/17 02/27/17 10:34 11:25 11:29 Temp 98.3 98.3 Pulse 90 Resp 18 B/P (MAP) 110/55 (73) Pulse Ox 93 93 97 O2 Delivery Room Air Room Air Room Air Intake and Output 02/26/17 02/26/17 02/27/17 15:00 23:00 07:00 Intake Total 1400 ml 1100 ml Balance 1400 ml 1100 ml EDGARD GUTIERREZ III DO Feb 27, 2017 13:12
[2017-02-27 15:03] VITALS: BP 108/60
[2017-02-27] MEDS: VANCOMYCIN PER PHARMACY MC PRN (15:06)
[2017-02-27] MEDS: ENOXAPARIN 40 MG/0.4 ML SYRINGE. SQ SCH (16:55)
[2017-02-27 19:00] VITALS: BP 104/52
[2017-02-27] MEDS: traZODone 100 MG TABLET. PO SCH (21:52)
[2017-02-27] MEDS: diazePAM 5 MG TABLET PO PRN (21:53)
[2017-02-27 23:00] VITALS: BP 123/83
[2017-02-28] MEDS: traMADol 50 MG TABLET PO PRN ×5 (02:20→23:42)
[2017-02-28 03:00] VITALS: BP 101/75
[2017-02-28] MEDS: HYDROmorphone 2 MG/ML VIAL IVP PRN ×2 (04:30→08:56)
[2017-02-28] MEDS: ONDANSETRON PF 4 MG/2 ML VIAL. IV PRN ×2 (04:31→13:43)
[2017-02-28] MEDS: VANCOMYCIN 1.5 GM in IV NORMAL SALINE 500ML BAG 500 ML IV SCH ×3 (06:39→22:51)
[2017-02-28 07:18] VITALS: BP 114/64
[2017-02-28] MEDS: VANCOMYCIN PER PHARMACY MC PRN (07:25)
[2017-02-28] MEDS: INSULIN ASPART 300 UNITS/3 ML INSULN.PEN SQ SCH ×6 (07:30→17:00)
--- NOTE | 2017-02-28 08:49 | PDOC ---
PROGRESS NOTES Subjective Subjective Problems overnight: Debora feels that there is really no change management coordinator the last couple of days of her pain over the radial aspect of the wrist. She can move her thumb minimally but it still sore. She was under the impression that she had a spiking fever within the past day or so. 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 She thought that it recurred since then Objective Vital Signs Vital Signs Date Time Temp Pulse Resp B/P (MAP) Pulse Ox O2 Delivery O2 Flow Rate FiO2 02/28/17 07:18 98.1 84 20 114/64 (81) 97 Room Air 98.1 Physical Exam On physical examination of the left hand and wrist her thumb amputation site is well-healed there is no redness or erythema present no fluctuance pleasant on palpation. She does have some tenderness over the first dorsal compartment, more typical of a de Quervain's condition than any infectious etiology, particularly since there is no redness and pain level is mild to moderate Labs Laboratory Tests Test 02/26/17 11:48 02/26/17 16:52 02/26/17 20:51 02/26/17 22:15 Glucose (Fingerstick) 163 mg/dL (70-99) 100 mg/dL (70-99) 134 mg/dL (70-99) Vancomycin Level Trough 10.4 mcg/mL (10.0-20.0) Vancomycin Last Dose Date 02/26/17 Vancomycin Last Dose Time 0700 Test 02/27/17 07:21 02/27/17 11:53 02/27/17 16:15 02/27/17 20:45 Glucose (Fingerstick) 185 mg/dL (70-99) 251 mg/dL (70-99) 166 mg/dL (70-99) 87 mg/dL (70-99) Test 02/27/17 21:59 02/28/17 07:24 Glucose (Fingerstick) 90 mg/dL (70-99) 81 mg/dL (70-99) Laboratory Tests Test 02/27/17 11:53 02/27/17 16:15 02/27/17 20:45 02/27/17 21:59 Glucose (Fingerstick) 251 mg/dL (70-99) 166 mg/dL (70-99) 87 mg/dL (70-99) 90 mg/dL (70-99) Test 02/28/17 07:24 Glucose (Fingerstick) 81 mg/dL (70-99) Assessment Assessment Apparent cellulitis left thumb resolved post antibiotics Continued pain over first dorsal compartment at wrist Problems: Plan Plan of Care I went over with her her vital signs that she has not been febrile since early Wednesday morning with a MAXIMUM TEMPERATURE of 100.3 Really no clinical signs of abscess or deep infection that would warrant operative intervention. I further explained that I think she may have some irritation in the tendon sheath but the symptoms and picture favor simple inflammation as opposed to infection which would typically be more painful and have other signs. While typical treatment for de Quervain's would be a corticosteroid injection, I do not favor that approach based on her previous history of infection and instead would treat this symptomatically with anti- inflammatories if tolerated. I don't really expect MRI to be high yield at all in terms of her wrist or thumb based on its appearance Continue observation and antibiotics nonoperative management SETH MEJIA MD Feb 28, 2017 08:48
[2017-02-28] MEDS: METOCLOPRAMIDE HCL 10 MG/2 ML VIAL. IV PRN (08:55)
[2017-02-28] MEDS: INSULIN DETEMIR 300 UNITS/3 ML INSULN.PEN. SQ SCH ×2 (09:00→20:32)
[2017-02-28] MEDS: diazePAM 5 MG TABLET PO PRN ×2 (10:36→23:42)
[2017-02-28 11:20] VITALS: BP 104/52
[2017-02-28] MEDS ORDERED: HYDROmorphone 2 MG TABLET PO PRN (13:30)
[2017-02-28] MEDS: HYDROmorphone 2 MG TABLET PO PRN ×3 (13:47→21:41)
--- NOTE | 2017-02-28 14:10 | PDOC ---
PROGRESS NOTES Chief Complaint Chief Complaint CC left thumb recurrent cellulitis status post amputation DM1 chronic abdominal pain History of Present Illness History of Present Illness 26 y/o F with CC of left thumb recurrent cellulitis status post amputation pt was found supine on bed, non distressed and pleasant pt complained of pain on her thumb pt insisted that she would feel better getting an MRI (despite ORTHO eval) continue anti inflammatory meds Vitals Vitals Vital Signs Date Time Temp Pulse Resp B/P (MAP) Pulse Ox O2 Delivery O2 Flow Rate FiO2 02/28/17 13:47 100 Room Air 02/28/17 11:20 98.2 88 18 104/52 (69) 98.2 Physical Exam General: Alert, Oriented X3, Cooperative, No acute distress Heart: Regular rate, Normal S1, Normal S2, No murmurs Lungs: Clear, Other Abdomen: Normal bowel sounds, No tenderness Extremities: No clubbing, Other (left thumb, s/p partial amputation, red, tender, minor swollen. ) Skin: No rashes, No breakdown Labs LABS Laboratory Tests Test 02/27/17 16:15 02/27/17 20:45 02/27/17 21:59 02/28/17 07:24 Glucose (Fingerstick) 166 mg/dL (70-99) 87 mg/dL (70-99) 90 mg/dL (70-99) 81 mg/dL (70-99) Test 02/28/17 12:04 Glucose (Fingerstick) 142 mg/dL (70-99) Review of Systems Review of Systems pt complained of mild pain and discomfort of thumb pt was drowsy Assessment and Plan Assessmemt and Plan Problems Medical Problems: (1) Cellulitis Status: Acute (2) Diabetic ketoacidosis Status: Acute (3) Hyperglycemia Status: Acute (4) Hyperglycemia due to type 1 diabetes mellitus Status: Acute (5) Inadequate pain control Status: Acute (6) Pain of left thumb Status: Acute (7) Uncontrolled diabetes mellitus Status: Acute PLAN -discontinue IV meds for PO dilaudid -MRI per pt request -continue abx and anti inflammatory meds -PTOT -recheck labs -continue home meds Problems: Comment Review of Relevant I have reviewed the following items lizbeth (where applicable) has been applied. Labs Laboratory Tests Test 02/26/17 16:52 02/26/17 20:51 02/26/17 22:15 02/27/17 07:21 Glucose (Fingerstick) 100 mg/dL (70-99) 134 mg/dL (70-99) 185 mg/dL (70-99) Vancomycin Level Trough 10.4 mcg/mL (10.0-20.0) Vancomycin Last Dose Date 02/26/17 Vancomycin Last Dose Time 0700 Test 02/27/17 11:53 02/27/17 16:15 02/27/17 20:45 02/27/17 21:59 Glucose (Fingerstick) 251 mg/dL (70-99) 166 mg/dL (70-99) 87 mg/dL (70-99) 90 mg/dL (70-99) Test 02/28/17 07:24 02/28/17 12:04 Glucose (Fingerstick) 81 mg/dL (70-99) 142 mg/dL (70-99) Laboratory Tests Test 02/27/17 16:15 02/27/17 20:45 02/27/17 21:59 02/28/17 07:24 Glucose (Fingerstick) 166 mg/dL (70-99) 87 mg/dL (70-99) 90 mg/dL (70-99) 81 mg/dL (70-99) Test 02/28/17 12:04 Glucose (Fingerstick) 142 mg/dL (70-99) Microbiology 02/25/17 Blood Culture - Preliminary, Resulted NO GROWTH AFTER 2 DAYS Medications Current Medications Ondansetron HCl (Zofran) 4 mg 1X ONCE IV Last administered on 02/24/17 02:29 ; Start 02/24/17 at 02:00; Stop 02/24/17 at 02:01; Status DC Sodium Chloride 1,000 ml @ 1,000 mls/hr 1X ONCE IV Last administered on 02:16; Start 02/24/17 at 02:00; Stop 02/24/17 at 03:00; Status DC Sodium Chloride 1,000 ml @ 1,000 mls/hr 1X ONCE IV Last administered on 02:22; Start 02/24/17 at 02:30; Stop 02/24/17 at 03:29; Status DC Sodium Chloride 1,000 ml @ 1,000 mls/hr Q1H IV Last administered on 02/24/17 03:05; Start 02/24/17 at 03:05; Stop 02/24/17 at 04:04; Status DC Insulin Human Regular 150 unit/ Sodium Chloride 151.5 ml @ 0 mls/hr CONT PRN PRN IV PER PROTOCOL Last administered on 02/24/17 03:49; Start 02/24/17 at 03: 15; Stop 02/24/17 at 09:03; Status DC Vancomycin HCl (Vanco Per Pharmacy) 1 each PRN DAILY PRN MC SEE COMMENTS Last administered on 02/24/17 08:01; Start 02/24/17 at 03:30; Stop 02/24/17 at 09:03 ; Status DC Clindamycin Phosphate 50 ml @ 100 mls/hr 1X ONCE IV Last administered on 02/24 03:40; Start 02/24/17 at 04:00; Stop 02/24/17 at 04:29; Status DC Hydromorphone HCl (Dilaudid) 1 mg 1X ONCE IV Last administered on 02/24/17 03 :45; Start 02/24/17 at 04:00; Stop 02/24/17 at 04:01; Status DC Promethazine HCl 12.5 mg/Sodium Chloride 50.5 ml @ 151.5 mls/ hr PRN Q6HRS PRN IV NAUSEA/VOMITING Last administered on 02/24/17 10:44; Start 02/24/17 at 03:30; Stop 02/25/17 at 03:29; Status DC Vancomycin HCl 2 gm/Sodium Chloride 500 ml @ 250 mls/hr 1X ONCE IV Last administered on 02/24/17 04:44; Start 02/24/17 at 04:30; Stop 02/24/17 at 06:29 ; Status DC Ondansetron HCl (Zofran) 4 mg PRN Q8HRS PRN IV NAUSEA/VOMITING Last administered on 02/24/17 06:13; Start 02/24/17 at 03:30; Stop 02/24/17 at 09:14 ; Status DC Acetaminophen (Tylenol) 650 mg PRN Q4HRS PRN PO FEVER Last administered on 02/25 03:17; Start 02/24/17 at 03:30; Stop 02/25/17 at 03:29; Status DC Sodium Chloride 1,000 ml @ 100 mls/hr 1X ONCE IV Last administered on 04:45; Start 02/24/17 at 05:18; Stop 02/24/17 at 15:17; Status DC Vancomycin HCl 1.5 gm/Sodium Chloride 500 ml @ 250 mls/hr Q12H IV ; Start 02/24 at 17:00; Stop 02/24/17 at 17:00; Status DC Vancomycin HCl 1 each 1X ONCE MC ; Start 02/25/17 at 16:30; Stop 02/25/17 at 16 :30; Status DC Hydromorphone HCl (Dilaudid) 1 mg PRN Q6HRS PRN IVP SEVERE PAIN; Start at 06:00; Stop 02/24/17 at 09:03; Status DC Hydromorphone HCl (Dilaudid) 0.25 mg PRN Q6HRS PRN IVP SEVERE PAIN Last administered on 02/25/17 04:23; Start 02/24/17 at 09:00; Stop 02/25/17 at 13:35 ; Status DC Magnesium Sulfate/ Dextrose 100 ml @ 25 mls/hr 1X ONCE IV Last administered on 02/24/17 09:48; Start 02/24/17 at 10:00; Stop 02/24/17 at 13:59; Status DC Diazepam (Valium) 5 mg PRN Q6HRS PRN PO ANXIETY Last administered on 02/28/17 10:36; Start 02/24/17 at 09:15 Insulin Aspart (NovoLOG) 45 units TIDAC SQ ; Start 02/24/17 at 11:30; Stop 02/24 at 11:30; Status DC Insulin Detemir (Levemir) 85 units BID SQ ; Start 02/24/17 at 10:00; Stop at 10:00; Status DC Tramadol HCl (Ultram) 50 mg PRN Q6HRS PRN PO PAIN; Start 02/24/17 at 09:15; Stop 02/24/17 at 09:15; Status DC Trazodone HCl (Desyrel) 100 mg QHS PO Last administered on 02/27/17 21:52; Start 02/24/17 at 21:00 Dextrose (Dextrose 50%-Water Syringe) 12.5 gm PRN Q15MIN PRN IV SEE COMMENTS; Start 02/24/17 at 09:15 Acetaminophen (Tylenol) 650 mg PRN Q6HRS PRN PO FEVER Last administered on 02/26 20:09; Start 02/24/17 at 09:15 Ondansetron HCl (Zofran) 4 mg PRN Q6HRS PRN IV NAUSEA/VOMITING, 1st CHOICE Last administered on 02/28/17 13:43; Start 02/24/17 at 09:15 Morphine Sulfate 2 mg PRN Q2HR PRN IV PAIN; Start 02/24/17 at 09:15 Tramadol HCl (Ultram) 50 mg PRN Q6HRS PRN PO PAIN Last administered on 10:51; Start 02/24/17 at 09:15; Stop 02/26/17 at 12:34; Status DC Hydralazine HCl (Apresoline) 10 mg PRN Q4HRS PRN IVP ELEVATED BP, SEE COMMENTS ; Start 02/24/17 at 09:15 Docusate Sodium (Colace) 100 mg PRN DAILY PRN PO CONSTIPATION; Start 02/24/17 at 09:15 Non-Formulary Medication 80 unit Q12HR SQ ; Start 02/24/17 at 21:00; Status UNV Non-Formulary Medication 35 unit TIDWMEALS SQ ; Start 02/24/17 at 12:00; Status UNV Insulin Aspart (NovoLOG) 35 units TIDAC SQ Last administered on 02/28/17 12:24 ; Start 02/24/17 at 11:30 Insulin Detemir (Levemir) 80 units BID SQ Last administered on 02/27/17 22:00 ; Start 02/24/17 at 10:30 Insulin Aspart (NovoLOG) 0-9 UNITS TIDWMEALS SQ Last administered on 02/27/17 17:35; Start 02/24/17 at 12:00 Dextrose (Dextrose 50%-Water Syringe) 12.5 gm PRN Q15MIN PRN IV SEE COMMENTS; Start 02/24/17 at 11:15; Status UNV Metoclopramide HCl (Reglan) 10 mg PRN Q6HRS PRN IV NAUSEA/VOMITING, 2ND CHOICE Last administered on 02/28/17 08:55; Start 02/24/17 at 12:30 Enoxaparin Sodium (Lovenox 40mg Syringe) 40 mg Q24H SQ Last administered on 16:55; Start 02/24/17 at 15:00 Hydromorphone HCl (Dilaudid) 0.8 mg PRN Q4HRS PRN IVP SEVERE PAIN; Start at 09:00; Stop 02/26/17 at 09:00; Status DC Magnesium Sulfate/ Dextrose 50 ml @ 25 mls/hr 1X ONCE IV Last administered on 02/25/17 18:15; Start 02/25/17 at 14:00; Stop 02/25/17 at 15:59; Status DC Vancomycin HCl (Vanco Per Pharmacy) 1 each PRN DAILY PRN MC SEE COMMENTS Last administered on 02/28/17 07:25; Start 02/25/17 at 13:45 Vancomycin HCl 2 gm/Sodium Chloride 500 ml @ 250 mls/hr 1X ONCE IV Last administered on 02/25/17 15:10; Start 02/25/17 at 14:00; Stop 02/25/17 at 15:59 ; Status DC Vancomycin HCl 1.5 gm/Sodium Chloride 500 ml @ 250 mls/hr Q8H IV Last administered on 02/28/17 06:39; Start 02/25/17 at 23:00 Vancomycin HCl 1 each 1X ONCE MC ; Start 02/26/17 at 14:30; Stop 02/26/17 at 14 :31; Status DC Hydromorphone HCl (Dilaudid) 0.8 mg PRN Q4HRS PRN IVP SEVERE PAIN Last administered on 02/28/17 08:56; Start 02/25/17 at 17:15 Tramadol HCl (Ultram) 50 mg PRN Q4HRS PRN PO PAIN Last administered on 10:36; Start 02/26/17 at 14:45 Hydromorphone HCl (Dilaudid) 0.5 mg PRN Q4HRS PRN PO PAIN; Start 02/28/17 at 13 :30; Stop 02/28/17 at 13:30; Status DC Hydromorphone HCl (Dilaudid) 1 mg PRN Q4HRS PRN PO PAIN Last administered on 7/ 30/17at 13:47; Start 02/28/17 at 13:30 Active Scripts Active Ultram (Tramadol Hcl) 50 Mg Tablet 50 Mg PO Q6H PRN Reported Humalog (Insulin Lispro) 100 Unit/1 Ml Cartridge 35 Unit SQ TIDWMEALS Lantus Solostar (Insulin Glargine,Hum.rec.anlog) 100 Unit/1 Ml Insuln.pen 80 Unit SQ Q12HR Diazepam 5 Mg Tablet 5 Mg PO PRN Q6HRS Trazodone Hcl 100 Mg Tablet 1 Tab PO QHS Vitals/I & O Vital Sign - Last 24 Hours 02/27/17 02/27/17 02/27/17 02/27/17 15:03 15:27 19:00 19:30 Temp 98.3 98.2 98.3 98.2 Pulse 90 98 Resp 19 22 B/P (MAP) 108/60 (76) 104/52 (69) Pulse Ox 96 96 96 O2 Delivery Room Air Room Air Room Air Room Air 02/27/17 02/27/17 02/27/17 02/27/17 19:54 21:53 23:00 23:54 Temp 98.4 98.4 Pulse 96 Resp 18 20 22 20 B/P (MAP) 123/83 (96) Pulse Ox 96 96 98 98 O2 Delivery Room Air Room Air Room Air Room Air 02/28/17 02/28/17 02/28/17 02/28/17 02:20 03:00 03:20 04:30 Temp 98.3 98.3 Pulse 87 Resp 18 20 18 18 B/P (MAP) 101/75 (84) Pulse Ox 98 97 97 O2 Delivery Room Air Room Air Room Air 02/28/17 02/28/17 02/28/17 02/28/17 05:00 07:18 08:00 08:56 Temp 98.1 98.1 Pulse 84 Resp 18 20 B/P (MAP) 114/64 (81) Pulse Ox 97 97 O2 Delivery Room Air Room Air Room Air 02/28/17 02/28/17 02/28/17 02/28/17 09:57 10:36 11:20 13:30 Temp 98.2 98.2 Pulse 88 Resp 18 B/P (MAP) 104/52 (69) Pulse Ox 97 97 100 100 O2 Delivery Room Air Room Air Room Air Room Air 02/28/17 13:47 Pulse Ox 100 O2 Delivery Room Air Intake and Output 02/27/17 02/27/17 02/28/17 15:00 23:00 07:00 Intake Total 450 ml 1200 ml Balance 450 ml 1200 ml EDGARD GUTIERREZ III DO Feb 28, 2017 14:10
[2017-02-28] MEDS: ENOXAPARIN 40 MG/0.4 ML SYRINGE. SQ SCH (15:00)
[2017-02-28 15:05] VITALS: BP 108/66
[2017-02-28 19:00] VITALS: BP 130/82
[2017-02-28] MEDS: traZODone 100 MG TABLET. PO SCH (20:30)
[2017-02-28 23:00] VITALS: BP 95/59
[2017-03-01] MEDS: HYDROmorphone 2 MG TABLET PO PRN ×5 (02:02→22:02)
[2017-03-01 03:00] VITALS: BP 104/63
[2017-03-01] MEDS: VANCOMYCIN 1.5 GM in IV NORMAL SALINE 500ML BAG 500 ML IV SCH ×3 (06:00→22:01)
[2017-03-01 07:07] VITALS: BP 101/40
[2017-03-01] MEDS: INSULIN ASPART 300 UNITS/3 ML INSULN.PEN SQ SCH ×6 (07:30→17:33)
[2017-03-01] MEDS ORDERED: INSULIN ASPART 300 UNITS/3 ML INSULN.PEN SQ ONE (08:30)
[2017-03-01] MEDS: INSULIN DETEMIR 300 UNITS/3 ML INSULN.PEN. SQ SCH ×2 (09:07→22:00)
[2017-03-01] MEDS: traMADol 50 MG TABLET PO PRN ×2 (10:21→15:00)
[2017-03-01 10:59] VITALS: BP 109/55
--- NOTE | 2017-03-01 11:15 | PDOC ---
PROGRESS NOTES Chief Complaint Chief Complaint CC: thumb redness, hyperglycemia A/P 1. left thumb recurrent cellulitis, post recent amputation, 2. labile dm1. 11/2016 Hba1c 8.5 3. h/o MRSA 4. Obesity, BMI 35 5. Fatty liver 6. anxiety d/o 7. anemia, likely 2/2 inflammation, iron deficiency, vitb12 lower side 8, Obesity 9. Hx gastroparesis Plan Continue current abx, Pharmacy to dose vancomycin SSI with meal dose insulin Avoid IV narcotics appreciate ortho input, pt is insisting for MRI. Labs reviewed. avoid sedatives. History of Present Illness History of Present Illness no fever no chills no acute events. Vitals Vitals Vital Signs Date Time Temp Pulse Resp B/P (MAP) Pulse Ox O2 Delivery O2 Flow Rate FiO2 03/01/17 10:59 98.2 86 18 109/55 (73) 95 Room Air 98.2 Physical Exam General: Alert, Oriented X3, Cooperative, No acute distress Heart: Regular rate, Normal S1, Normal S2, No murmurs Lungs: Clear, Other Abdomen: Normal bowel sounds, No tenderness Extremities: No clubbing, Other Skin: No rashes, No breakdown Labs LABS Laboratory Tests Test 02/28/17 12:04 02/28/17 16:42 02/28/17 20:29 03/01/17 07:35 Glucose (Fingerstick) 142 mg/dL (70-99) 172 mg/dL (70-99) 123 mg/dL (70-99) 371 mg/dL (70-99) Assessment and Plan Assessmemt and Plan Problems Medical Problems: (1) Cellulitis Status: Acute (2) Diabetic ketoacidosis Status: Acute (3) Hyperglycemia Status: Acute (4) Hyperglycemia due to type 1 diabetes mellitus Status: Acute (5) Inadequate pain control Status: Acute (6) Pain of left thumb Status: Acute (7) Uncontrolled diabetes mellitus Status: Acute Problems: Comment Review of Relevant I have reviewed the following items lizbeth (where applicable) has been applied. Labs Laboratory Tests Test 02/27/17 11:53 02/27/17 16:15 02/27/17 20:45 02/27/17 21:59 Glucose (Fingerstick) 251 mg/dL (70-99) 166 mg/dL (70-99) 87 mg/dL (70-99) 90 mg/dL (70-99) Test 02/28/17 07:24 02/28/17 12:04 02/28/17 16:42 02/28/17 20:29 Glucose (Fingerstick) 81 mg/dL (70-99) 142 mg/dL (70-99) 172 mg/dL (70-99) 123 mg/dL (70-99) Test 03/01/17 07:35 Glucose (Fingerstick) 371 mg/dL (70-99) Laboratory Tests Test 02/28/17 12:04 02/28/17 16:42 02/28/17 20:29 03/01/17 07:35 Glucose (Fingerstick) 142 mg/dL (70-99) 172 mg/dL (70-99) 123 mg/dL (70-99) 371 mg/dL (70-99) Microbiology 02/25/17 Blood Culture - Preliminary, Resulted NO GROWTH AFTER 3 DAYS Medications Current Medications Ondansetron HCl (Zofran) 4 mg 1X ONCE IV Last administered on 02/24/17 02:29 ; Start 02/24/17 at 02:00; Stop 02/24/17 at 02:01; Status DC Sodium Chloride 1,000 ml @ 1,000 mls/hr 1X ONCE IV Last administered on 02:16; Start 02/24/17 at 02:00; Stop 02/24/17 at 03:00; Status DC Sodium Chloride 1,000 ml @ 1,000 mls/hr 1X ONCE IV Last administered on 02:22; Start 02/24/17 at 02:30; Stop 02/24/17 at 03:29; Status DC Sodium Chloride 1,000 ml @ 1,000 mls/hr Q1H IV Last administered on 02/24/17 03:05; Start 02/24/17 at 03:05; Stop 02/24/17 at 04:04; Status DC Insulin Human Regular 150 unit/ Sodium Chloride 151.5 ml @ 0 mls/hr CONT PRN PRN IV PER PROTOCOL Last administered on 02/24/17 03:49; Start 02/24/17 at 03: 15; Stop 02/24/17 at 09:03; Status DC Vancomycin HCl (Vanco Per Pharmacy) 1 each PRN DAILY PRN MC SEE COMMENTS Last administered on 02/24/17 08:01; Start 02/24/17 at 03:30; Stop 02/24/17 at 09:03 ; Status DC Clindamycin Phosphate 50 ml @ 100 mls/hr 1X ONCE IV Last administered on 02/24 03:40; Start 02/24/17 at 04:00; Stop 02/24/17 at 04:29; Status DC Hydromorphone HCl (Dilaudid) 1 mg 1X ONCE IV Last administered on 02/24/17 03 :45; Start 02/24/17 at 04:00; Stop 02/24/17 at 04:01; Status DC Promethazine HCl 12.5 mg/Sodium Chloride 50.5 ml @ 151.5 mls/ hr PRN Q6HRS PRN IV NAUSEA/VOMITING Last administered on 02/24/17 10:44; Start 02/24/17 at 03:30; Stop 02/25/17 at 03:29; Status DC Vancomycin HCl 2 gm/Sodium Chloride 500 ml @ 250 mls/hr 1X ONCE IV Last administered on 02/24/17 04:44; Start 02/24/17 at 04:30; Stop 02/24/17 at 06:29 ; Status DC Ondansetron HCl (Zofran) 4 mg PRN Q8HRS PRN IV NAUSEA/VOMITING Last administered on 02/24/17 06:13; Start 02/24/17 at 03:30; Stop 02/24/17 at 09:14 ; Status DC Acetaminophen (Tylenol) 650 mg PRN Q4HRS PRN PO FEVER Last administered on 02/25 03:17; Start 02/24/17 at 03:30; Stop 02/25/17 at 03:29; Status DC Sodium Chloride 1,000 ml @ 100 mls/hr 1X ONCE IV Last administered on 04:45; Start 02/24/17 at 05:18; Stop 02/24/17 at 15:17; Status DC Vancomycin HCl 1.5 gm/Sodium Chloride 500 ml @ 250 mls/hr Q12H IV ; Start 02/24 at 17:00; Stop 02/24/17 at 17:00; Status DC Vancomycin HCl 1 each 1X ONCE MC ; Start 02/25/17 at 16:30; Stop 02/25/17 at 16 :30; Status DC Hydromorphone HCl (Dilaudid) 1 mg PRN Q6HRS PRN IVP SEVERE PAIN; Start at 06:00; Stop 02/24/17 at 09:03; Status DC Hydromorphone HCl (Dilaudid) 0.25 mg PRN Q6HRS PRN IVP SEVERE PAIN Last administered on 02/25/17 04:23; Start 02/24/17 at 09:00; Stop 02/25/17 at 13:35 ; Status DC Magnesium Sulfate/ Dextrose 100 ml @ 25 mls/hr 1X ONCE IV Last administered on 02/24/17 09:48; Start 02/24/17 at 10:00; Stop 02/24/17 at 13:59; Status DC Diazepam (Valium) 5 mg PRN Q6HRS PRN PO ANXIETY Last administered on 02/28/17 23:42; Start 02/24/17 at 09:15 Insulin Aspart (NovoLOG) 45 units TIDAC SQ ; Start 02/24/17 at 11:30; Stop 02/24 at 11:30; Status DC Insulin Detemir (Levemir) 85 units BID SQ ; Start 02/24/17 at 10:00; Stop at 10:00; Status DC Tramadol HCl (Ultram) 50 mg PRN Q6HRS PRN PO PAIN; Start 02/24/17 at 09:15; Stop 02/24/17 at 09:15; Status DC Trazodone HCl (Desyrel) 100 mg QHS PO Last administered on 02/28/17 20:30; Start 02/24/17 at 21:00 Dextrose (Dextrose 50%-Water Syringe) 12.5 gm PRN Q15MIN PRN IV SEE COMMENTS; Start 02/24/17 at 09:15 Acetaminophen (Tylenol) 650 mg PRN Q6HRS PRN PO FEVER Last administered on 02/26 20:09; Start 02/24/17 at 09:15 Ondansetron HCl (Zofran) 4 mg PRN Q6HRS PRN IV NAUSEA/VOMITING, 1st CHOICE Last administered on 02/28/17 13:43; Start 02/24/17 at 09:15 Morphine Sulfate 2 mg PRN Q2HR PRN IV PAIN; Start 02/24/17 at 09:15; Stop 02/28 at 15:04; Status DC Tramadol HCl (Ultram) 50 mg PRN Q6HRS PRN PO PAIN Last administered on 10:51; Start 02/24/17 at 09:15; Stop 02/26/17 at 12:34; Status DC Hydralazine HCl (Apresoline) 10 mg PRN Q4HRS PRN IVP ELEVATED BP, SEE COMMENTS ; Start 02/24/17 at 09:15 Docusate Sodium (Colace) 100 mg PRN DAILY PRN PO CONSTIPATION; Start 02/24/17 at 09:15 Non-Formulary Medication 80 unit Q12HR SQ ; Start 02/24/17 at 21:00; Status UNV Non-Formulary Medication 35 unit TIDWMEALS SQ ; Start 02/24/17 at 12:00; Status UNV Insulin Aspart (NovoLOG) 35 units TIDAC SQ Last administered on 02/28/17 16:30 ; Start 02/24/17 at 11:30 Insulin Detemir (Levemir) 80 units BID SQ Last administered on 03/01/17 09:07 ; Start 02/24/17 at 10:30 Insulin Aspart (NovoLOG) 0-9 UNITS TIDWMEALS SQ Last administered on 02/28/17 17:00; Start 02/24/17 at 12:00 Dextrose (Dextrose 50%-Water Syringe) 12.5 gm PRN Q15MIN PRN IV SEE COMMENTS; Start 02/24/17 at 11:15; Status UNV Metoclopramide HCl (Reglan) 10 mg PRN Q6HRS PRN IV NAUSEA/VOMITING, 2ND CHOICE Last administered on 02/28/17 08:55; Start 02/24/17 at 12:30 Enoxaparin Sodium (Lovenox 40mg Syringe) 40 mg Q24H SQ Last administered on 16:55; Start 02/24/17 at 15:00 Hydromorphone HCl (Dilaudid) 0.8 mg PRN Q4HRS PRN IVP SEVERE PAIN; Start at 09:00; Stop 02/26/17 at 09:00; Status DC Magnesium Sulfate/ Dextrose 50 ml @ 25 mls/hr 1X ONCE IV Last administered on 02/25/17 18:15; Start 02/25/17 at 14:00; Stop 02/25/17 at 15:59; Status DC Vancomycin HCl (Vanco Per Pharmacy) 1 each PRN DAILY PRN MC SEE COMMENTS Last administered on 02/28/17 07:25; Start 02/25/17 at 13:45 Vancomycin HCl 2 gm/Sodium Chloride 500 ml @ 250 mls/hr 1X ONCE IV Last administered on 02/25/17 15:10; Start 02/25/17 at 14:00; Stop 02/25/17 at 15:59 ; Status DC Vancomycin HCl 1.5 gm/Sodium Chloride 500 ml @ 250 mls/hr Q8H IV Last administered on 03/01/17 06:00; Start 02/25/17 at 23:00 Vancomycin HCl 1 each 1X ONCE MC ; Start 02/26/17 at 14:30; Stop 02/26/17 at 14 :31; Status DC Hydromorphone HCl (Dilaudid) 0.8 mg PRN Q4HRS PRN IVP SEVERE PAIN Last administered on 02/28/17 08:56; Start 02/25/17 at 17:15; Stop 02/28/17 at 15:04 ; Status DC Tramadol HCl (Ultram) 50 mg PRN Q4HRS PRN PO PAIN Last administered on 10:21; Start 02/26/17 at 14:45 Hydromorphone HCl (Dilaudid) 0.5 mg PRN Q4HRS PRN PO PAIN; Start 02/28/17 at 13 :30; Stop 02/28/17 at 13:30; Status DC Hydromorphone HCl (Dilaudid) 1 mg PRN Q4HRS PRN PO PAIN Last administered on 06:00; Start 02/28/17 at 13:30 Insulin Aspart (NovoLOG) 45 units 1X ONCE SQ Last administered on 03/01/17 09 :06; Start 03/01/17 at 08:30; Stop 03/01/17 at 08:31; Status DC Active Scripts Active Ultram (Tramadol Hcl) 50 Mg Tablet 50 Mg PO Q6H PRN Reported Humalog (Insulin Lispro) 100 Unit/1 Ml Cartridge 35 Unit SQ TIDWMEALS Lantus Solostar (Insulin Glargine,Hum.rec.anlog) 100 Unit/1 Ml Insuln.pen 80 Unit SQ Q12HR Diazepam 5 Mg Tablet 5 Mg PO PRN Q6HRS Trazodone Hcl 100 Mg Tablet 1 Tab PO QHS Vitals/I & O Vital Sign - Last 24 Hours 02/28/17 02/28/17 02/28/17 02/28/17 11:20 13:47 15:05 15:08 Temp 98.2 98.1 98.2 98.1 Pulse 88 86 Resp 18 22 B/P (MAP) 104/52 (69) 108/66 (80) Pulse Ox 100 100 99 100 O2 Delivery Room Air Room Air Room Air Room Air 02/28/17 02/28/17 02/28/17 02/28/17 17:40 19:00 19:45 19:46 Temp 98.1 98.1 Pulse 100 Resp 20 B/P (MAP) 130/82 (98) Pulse Ox 100 100 100 O2 Delivery Room Air Room Air Room Air Room Air 02/28/17 02/28/17 02/28/17 03/01/17 21:41 23:00 23:42 00:42 Temp 98.4 98.4 Pulse 87 Resp 18 B/P (MAP) 95/59 (71) Pulse Ox 100 96 96 96 O2 Delivery Room Air Room Air Room Air Room Air 03/01/17 03/01/17 03/01/17 03/01/17 02:02 03:00 06:00 07:00 Temp 98.2 98.2 Pulse 84 Resp 18 B/P (MAP) 104/63 (77) Pulse Ox 96 97 97 97 O2 Delivery Room Air Room Air Room Air Room Air 03/01/17 03/01/17 03/01/17 03/01/17 07:07 08:00 10:21 10:59 Temp 97.9 98.2 97.9 98.2 Pulse 92 86 Resp 19 18 B/P (MAP) 101/40 (60) 109/55 (73) Pulse Ox 95 95 O2 Delivery Room Air Room Air Room Air Room Air Intake and Output 02/28/17 02/28/17 03/01/17 15:00 23:00 07:00 Intake Total 240 ml 550 ml Balance 240 ml 550 ml FAYE POWER MD Mar 01, 2017 11:15
[2017-03-01] MEDS: VANCOMYCIN PER PHARMACY MC PRN (13:21)
[2017-03-01 14:51] VITALS: BP 102/51
[2017-03-01] MEDS: ENOXAPARIN 40 MG/0.4 ML SYRINGE. SQ SCH (15:00)
[2017-03-01 19:26] VITALS: BP 95/45
[2017-03-01] MEDS: traZODone 100 MG TABLET. PO SCH (21:59)
[2017-03-01 23:44] VITALS: BP 107/56
[2017-03-02] MEDS: traMADol 50 MG TABLET PO PRN (00:14)
[2017-03-02] MEDS: HYDROmorphone 2 MG TABLET PO PRN ×3 (02:40→12:35)
[2017-03-02 02:49] VITALS: BP 116/72
[2017-03-02 07:05] VITALS: BP 111/52
[2017-03-02] MEDS: INSULIN ASPART 300 UNITS/3 ML INSULN.PEN SQ SCH ×4 (08:00→12:41)
[2017-03-02] MEDS: INSULIN DETEMIR 300 UNITS/3 ML INSULN.PEN. SQ SCH (08:33)
[2017-03-02] MEDS: VANCOMYCIN 1.5 GM in IV NORMAL SALINE 500ML BAG 500 ML IV SCH (10:34)
[2017-03-02 10:36] VITALS: BP 117/62
[2017-03-02] MEDS: VANCOMYCIN PER PHARMACY MC PRN (11:12)
[2017-03-02] MEDS ORDERED: HYDR2TAB31 PO (11:15)
[2017-03-02] MEDS ORDERED: HEPARIN PF 500 UNIT/5 ML DISP.SYRIN. IV ONE (12:00)
--- NOTE | 2017-03-02 13:10 | PDOC3 ---
Discharge Summary [facility] Date of Admission: Feb 24, 2017 Discharge Date: Mar 02, 2017 Admitting Diagnosis 1. h/o left thumb recurrent cellulitis, post recent amputation, now looks stable to me. 2/2 inflammation, NO infection. 2. uncontrolled dm1. 11/2016 Hba1c 8.5 3. h/o MRSA 4. MORBID Obesity 5. fatty liver 6. anxiety 7. 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 Song Brief Hospital Course Patient is a 26 year old female who presents with redness, swelling and increased pain to left thumb for 1 day. Pt was here a few month ago for uncontrolled dm1, when she got iv through her left thumb. Since then she started to have the pain and came back for the infection, for which she got I and D by dr. Elias. Then she cont having pain, and she got distal amputation approx 2 weeks ago (at outside facility in [place]), where her parents stay. She was told to cont bactrim and levaquin for another 1month , cannot tell me whether the infection was cleaned well by ortho there, but said the finger was ok , till 2 days ago, with swelling, erythema, and pus exudate, pain. She was here seen by me at the end of November, MRI showed possible osteo, but both ortho and ID didnot feel so, dc home with clindamycin. However, when i asked pt, she cannot remember if took it and not follow dr. Dennis who she supposed to. She came back again 1m ago, also cannot tell me if she was dced with abx. So , this time, pt came back again for same reason, left thumb redness extending to wrist, some pain. She said T 101 at home, but afebrile here. HYperglycemia, again, found in ER. She also had N/V, but again, she told me GES was neg before. The truth is i found + gastroparesis in [facility] 01/2016. 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 in the past admissions, She states she dosenot eat much in the hosp, but nurse said she ordered multiple trays. hba1c 8.5 in 11/2016, pt always says her DM2 is controlled. pt didnot tell me that [facility] as i said again, she is a medical care seeker, not sure if she is homeless with her finace following with her all the time daily. i dced her vanco in icu, however, pt got T 102, someone restarted vanco again till now. dr. Jackson consulted , no intervention recommendation. dc home wo abx. dilaudid 2mg 10pills. This pt should not be readmitted if only for her chronic left thumb pain, which is likely 2/2 inflammation. dc time 40min. General: Alert, Oriented X3, Cooperative, No acute distress Heart: Regular rate, Normal S1, Normal S2, No murmurs Lungs: Clear, Other Abdomen: Normal bowel sounds, No tenderness Extremities: No clubbing, Other (left thumb, s/p partial amputation, red, tender, minor swollen. ) Skin: No rashes, No breakdown Patient History: Anxiety disorder 32 MOTHER, Onset:Unknown FH: glaucoma 32 MOTHER, Onset:Unknown FH: ovarian cancer 32 MOTHER, Onset:Unknown Grandmother, Onset:Unknown Aunt--maternal, Onset:Unknown Family history: Angina (situation) 33 FATHER, , Age:Unknown, Onset:Unknown 32 MOTHER, Onset:Unknown Family history: Depression (situation) 32 MOTHER, Onset:Unknown No Family History of: Family history: Asthma Family history: Autoimmune disease (situation) Family history: Blood disorder (situation) Family history: Breast disease (situation) Family history: Cardiomyopathy (situation) Family history: Cardiovascular disease (situation) Family history: Crohn's disease (situation) Family history: Diabetes mellitus (situation) Family history: Epilepsy (situation) Family history: Gallbladder disease (situation) Family history: Gastrointestinal disease (situation) Family history: Hemophilia (situation) Family history: Hypertension (situation) Family history: Obesity (situation) Family history: Schizophrenia (situation) Family history: Sickle cell trait (situation) Family history: Suicide (situation) Family history: neoplasm - trachea/bronchus/lung (situation) Family history: neoplasm - urinary organ (situation) Family history: neoplasm of skin (situation) Malignant hyperthermia Sleep apnea Unknown Problems: Disposition home CONDITION AT DISCHARGE: Improved Diet ada Scheduled Diazepam (Diazepam), 5 MG PO PRN Q6HRS, (Reported) Insulin Glargine,Hum.rec.anlog (Lantus Solostar), 80 UNIT SQ Q12HR, (Reported) Insulin Lispro (Humalog), 35 UNIT SQ TIDWMEALS, (Reported) Trazodone Hcl (Trazodone Hcl), 1 TAB PO QHS, (Reported) Scheduled PRN Hydromorphone Hcl (Dilaudid), 1 MG PO PRN Q4HRS PRN for PAIN Tramadol Hcl (Ultram), 50 MG PO Q6H PRN for PAIN Follow Up pcp KENNY Keene MD Mar 02, 2017 13:10
== END 2017-03-02 13:33 | disposition home or self-care (01) | DRG 602 ==
LOC: ER 01:29 → 1 WEST ICU 03:22 → 6 SOUTH 13:20
PROVIDERS: ADMIT Internal Medicine; ATTEND Internal Medicine
DX: L03.012 Cellulitis of left finger (principal); E10.10 Type 1 diabetes mellitus with ketoacidosis without coma; L03.114 Cellulitis of left upper limb; E66.01 Morbid (severe) obesity due to excess calories; I10 Essential (primary) hypertension; G89.29 Other chronic pain; F41.9 Anxiety disorder, unspecified; K76.0 Fatty (change of) liver, not elsewhere classified; E83.42 Hypomagnesemia; E10.43 Type 1 diabetes mellitus with diabetic autonomic (poly)neuropathy; K31.84 Gastroparesis; D50.9 Iron deficiency anemia, unspecified; Z79.4 Long term (current) use of insulin; Z81.8 Family history of other mental and behavioral disorders; Z82.0 Family history of epilepsy and other diseases of the nervous system; Z82.49 Family history of ischemic heart disease and other diseases of the circulatory system; Z82.5 Family history of asthma and other chronic lower respiratory diseases; Z83.3 Family history of diabetes mellitus; Z83.511 Family history of glaucoma; Z90.49 Acquired absence of other specified parts of digestive tract; Z90.721 Acquired absence of ovaries, unilateral; Z86.14 Personal history of Methicillin resistant Staphylococcus aureus infection; Z68.34 Body mass index [BMI] 34.0-34.9, adult; Z88.0 Allergy status to penicillin; Z88.5 Allergy status to narcotic agent; Z88.8 Allergy status to other drugs, medicaments and biological substances; Z89.012 Acquired absence of left thumb
CPT/HCPCS: 36415; 71010; 80048; 80053; 80202; 80307; 81001; 81025; 82803; 82962; 83036; 83540; 83550; 83605; 83690; 83735; 84100; 85007; 85027; 87040; 87641; 93005; 96361; 96365; 96366; 96368; 96375; J1170; J1650; J1815; J2405; J2550; J2765; J3370; J3475; J3490; J7030; J7040; J7060; 99285-25; G0479

== ENCOUNTER 2017-08-09 19:14 | Inpatient (IN) | payer SELFPAY, MEDICAID ==
[2017-08-09 20:46] LABS: ADD MAN DIFF? NO
[2017-08-09 20:50] LABS: BASO % 1 % (0-3); EOS # 0.1 x10^3/uL (0.0-0.7); EOS % 3 % (0-3); HEMATOCRIT 32.6 % (36.0-47.0); HEMOGLOBIN 10.2 g/dL (12.0-15.5); LYMPH # 1.6 x10^3/uL (1.0-4.8); LYMPH % 40 % (24-48); MEAN CORPUSCULAR HEMOGLOBIN 24 pg (25-35); MEAN CORPUSCULAR HGB CONC 31 g/dL (31-37); MEAN CORPUSCULAR VOLUME 76 fL (79-100); MONO # 0.3 x10^3/uL (0.0-1.1); MONO % 8 % (0-9); NEUT # 1.9 x10^3uL (1.8-7.7); NEUT % 49 % (31-73); PLATELET COUNT 208 x10^3/uL (140-400); RED CELL DISTRIBUTION WIDTH 23.4 % (11.5-14.5)
[2017-08-09] MEDS: ONDANSETRON PF 4 MG/2 ML VIAL. IV (20:50)
[2017-08-09] MEDS: IV NORMAL SALINE 1000ML BAG 1,000 ML IV (20:51)
[2017-08-09 21:00] LABS: INR 1.1 (0.8-1.1); PARTIAL THROMBOPLASTIN TIME 27 SEC (24-38); PROTHROMBIN TIME PATIENT 13.1 SEC (11.7-14.0)
[2017-08-09 21:05] LABS: LACTIC ACID 2.8 mmol/L (0.4-2.0)
[2017-08-09 21:12] LABS: ALBUMIN 3.7 g/dL (3.4-5.0); ALK PHOS 227 U/L (46-116); ALT (SGPT) 30 U/L (14-59); ANION GAP 12 (6-14); AST (SGOT) 23 U/L (15-37); BLOOD UREA NITROGEN 6 mg/dL (7-20); BUN/CREATININE RATIO 8 (6-20); CALCIUM 8.5 mg/dL (8.5-10.1); CARBON DIOXIDE 23 mmol/L (21-32); CHLORIDE 96 mmol/L (98-107); CREATINE KINASE 55 U/L (26-192); CREATININE 0.8 mg/dL (0.6-1.0); GFR 85.4; MAGNESIUM 1.6 mg/dL (1.8-2.4); SODIUM 131 mmol/L (136-145); TOTAL BILIRUBIN 0.4 mg/dL (0.2-1.0); TOTAL PROTEIN 7.5 g/dL (6.4-8.2)
[2017-08-09] MEDS ORDERED: ONDANSETRON PF 4 MG/2 ML VIAL. IV (21:15)
[2017-08-09 21:16] LABS: GLUCOSE 522 mg/dL (70-99)
[2017-08-09 21:21] LABS: BILIRUBIN,URINE NEGATIVE (NEG); CLARITY,URINE CLEAR; COLOR,URINE YELLOW; GLUCOSE,URINE >=1000 mg/dL (NEG); NITRITE,URINE NEGATIVE (NEG); PH,URINE 6.5; PROTEIN,URINE NEGATIVE (NEG-TRACE); UROBILINOGEN,URINE 0.2 mg/dL (0.2 mg/dL)
[2017-08-09 21:21] LABS: URINE HCG POC HCG NEGATIVE (Negative)
[2017-08-09 21:29] LABS: BACTERIA,URINE 0 /HPF (0-FEW); RBC,URINE RARE /HPF (0-2); SQUAMOUS EPITHELIAL CELL,UR OCC /LPF; WBC,URINE 0 /HPF (0-4); YEAST,URINE PRESENT /HPF
[2017-08-09] MEDS ORDERED: VANCOMYCIN 2 GM in IV DEXTROSE 5% 500 ML IV (21:30)
[2017-08-09 21:39] LABS: ANISOCYTOSIS MOD; HYPOCHROMIA SLIGHT; OVALOCYTES FEW; PLT ESTIMATE ADEQUATE (ADEQUATE)
[2017-08-09] MEDS: oxyCODONE/APAP 5/325 1 TAB TABLET PO (22:05)
[2017-08-09] MEDS: VANCOMYCIN 2 GM in IV 1/2 NORMAL SALINE 500 ML IV (22:07)
[2017-08-09] MEDS: INSULIN REGULAR VIAL 150 UNIT in 0.9 % SODIUM CHLORIDE 150ML 150 ML IV (22:31)
[2017-08-09] MEDS ORDERED: DEXTROSE 50% 25 GM / 50ML DISP.SYRIN. IV (23:15)
[2017-08-09 23:59] LABS: POC GLUCOSE 196 mg/dL (70-99)
[2017-08-10] MEDS: INSULIN REGULAR VIAL 150 UNIT in 0.9 % SODIUM CHLORIDE 150ML 150 ML IV ×2 (00:15→00:58)
[2017-08-10 00:58] LABS: POC GLUCOSE 194 mg/dL (70-99)
[2017-08-10 02:03] LABS: POC GLUCOSE 188 mg/dL (70-99)
[2017-08-10] MEDS: VANCOMYCIN PER PHARMACY MC (02:29)
[2017-08-10] MEDS: oxyCODONE/APAP 10/325 1 TAB TABLET PO ×5 (02:38→20:38)
[2017-08-10 03:06] LABS: POC GLUCOSE 189 mg/dL (70-99)
[2017-08-10 04:11] LABS: POC GLUCOSE 144 mg/dL (70-99)
[2017-08-10 05:05] LABS: POC GLUCOSE 120 mg/dL (70-99)
[2017-08-10 06:07] LABS: POC GLUCOSE 114 mg/dL (70-99)
[2017-08-10] MEDS: VANCOMYCIN 1.5 GM in IV DEXTROSE 5 %-0.2 % NACL 500 ML IV ×2 (06:09→14:55)
[2017-08-10 07:10] LABS: POC GLUCOSE 148 mg/dL (70-99)
[2017-08-10] MEDS: INSULIN ASPART 300 UNITS/3 ML INSULN.PEN SQ ×4 (07:30→18:00)
[2017-08-10 08:04] LABS: POC GLUCOSE 163 mg/dL (70-99)
[2017-08-10 09:34] LABS: POC GLUCOSE 159 mg/dL (70-99)
[2017-08-10 11:14] LABS: POC GLUCOSE 184 mg/dL (70-99)
[2017-08-10 16:40] LABS: POC GLUCOSE 376 mg/dL (70-99)
[2017-08-10 17:25] LABS: % SAT IRON 9 % (15-34); IRON,SERUM 35 ug/dL (50-170)
[2017-08-10] MEDS ORDERED: DEXTROSE 50% 25 GM / 50ML DISP.SYRIN. IV (17:30)
[2017-08-10 17:38] LABS: FERRITIN 64 ng/mL (8-252)
[2017-08-10 20:44] LABS: POC GLUCOSE 280 mg/dL (70-99)
[2017-08-10] MEDS: INSULIN DETEMIR 300 UNITS/3 ML INSULN.PEN. SQ (20:47)
[2017-08-10] MEDS ORDERED: INSULIN DETEMIR 300 UNITS/3 ML INSULN.PEN. SQ ×2 (21:00)
[2017-08-10 23:24] LABS: POC GLUCOSE 284 mg/dL (70-99)
[2017-08-11] MEDS: oxyCODONE/APAP 10/325 1 TAB TABLET PO ×6 (01:30→20:48)
[2017-08-11 08:15] LABS: POC GLUCOSE 412 mg/dL (70-99)
[2017-08-11] MEDS: INSULIN ASPART 300 UNITS/3 ML INSULN.PEN SQ ×7 (08:30→21:58)
[2017-08-11 09:09] LABS: POC GLUCOSE 336 mg/dL (70-99)
[2017-08-11] MEDS: INSULIN DETEMIR 300 UNITS/3 ML INSULN.PEN. SQ ×3 (09:28→20:58)
[2017-08-11] MEDS: VANCOMYCIN PER PHARMACY MC (10:08)
[2017-08-11] MEDS: CEFEPIME HCL IV Push 1 GM VIAL. IVP ×3 (10:25→22:00)
[2017-08-11] MEDS: VANCOMYCIN 1.25 GM in IV DEXTROSE 5 %-0.2 % NACL 250 ML IV ×2 (10:26→18:29)
[2017-08-11 10:46] LABS: ADD MAN DIFF? NO
[2017-08-11 10:53] LABS: BASO % 1 % (0-3); EOS # 0.1 x10^3/uL (0.0-0.7); EOS % 3 % (0-3); HEMATOCRIT 33.9 % (36.0-47.0); HEMOGLOBIN 10.6 g/dL (12.0-15.5); LYMPH # 1.6 x10^3/uL (1.0-4.8); LYMPH % 36 % (24-48); MEAN CORPUSCULAR HEMOGLOBIN 23 pg (25-35); MEAN CORPUSCULAR HGB CONC 31 g/dL (31-37); MEAN CORPUSCULAR VOLUME 75 fL (79-100); MONO # 0.3 x10^3/uL (0.0-1.1); MONO % 7 % (0-9); NEUT # 2.4 x10^3uL (1.8-7.7); NEUT % 54 % (31-73); PLATELET COUNT 233 x10^3/uL (140-400); RED BLOOD COUNT 4.51 x10^6/uL (3.50-5.40); WHITE BLOOD COUNT 4.5 x10^3/uL (4.0-11.0)
[2017-08-11 11:25] LABS: POC GLUCOSE 212 mg/dL (70-99)
[2017-08-11 11:49] LABS: ANION GAP 10 (6-14); BLOOD UREA NITROGEN 9 mg/dL (7-20); CALCIUM 8.5 mg/dL (8.5-10.1); CARBON DIOXIDE 26 mmol/L (21-32); CHLORIDE 100 mmol/L (98-107); CREATININE 0.5 mg/dL (0.6-1.0); GFR 146.9; GLUCOSE 244 mg/dL (70-99); POTASSIUM 3.9 mmol/L (3.5-5.1); SODIUM 136 mmol/L (136-145)
[2017-08-11] MEDS ORDERED: PIPERACILLIN/TAZOBACTAM 3.375 GM in IV DEXTROSE 5% 50 ML IV (12:00)
[2017-08-11 16:32] LABS: POC GLUCOSE 351 mg/dL (70-99)
[2017-08-11 18:04] LABS: SEDIMENTATION RATE 23 (0-25)
[2017-08-11 21:11] LABS: POC GLUCOSE 293 mg/dL (70-99)
[2017-08-11] MEDS: QUEtiapine 100 MG TABLET. PO (21:49)
[2017-08-12] MEDS: oxyCODONE/APAP 10/325 1 TAB TABLET PO ×7 (01:15→21:35)
[2017-08-12] MEDS: VANCOMYCIN 1.25 GM in IV DEXTROSE 5 %-0.2 % NACL 250 ML IV ×2 (02:51→16:25)
[2017-08-12] MEDS: CEFEPIME HCL IV Push 1 GM VIAL. IVP ×3 (03:56→21:26)
[2017-08-12 04:19] LABS: HEMOGLOBIN A1C 8.4 % (4.8-5.6)
[2017-08-12] MEDS: INSULIN ASPART 300 UNITS/3 ML INSULN.PEN SQ ×6 (07:30→17:47)
[2017-08-12 07:58] LABS: POC GLUCOSE 293 mg/dL (70-99)
[2017-08-12 11:02] LABS: POC GLUCOSE 309 mg/dL (70-99)
[2017-08-12] MEDS: ALTEPLASE 2 MG VIAL INT CAT (12:12)
[2017-08-12] MEDS: INSULIN DETEMIR 300 UNITS/3 ML INSULN.PEN. SQ ×2 (12:25→21:49)
[2017-08-12 13:23] LABS: ADD MAN DIFF? NO
[2017-08-12 13:27] LABS: BASO % 1 % (0-3); EOS # 0.1 x10^3/uL (0.0-0.7); EOS % 3 % (0-3); HEMATOCRIT 35.8 % (36.0-47.0); HEMOGLOBIN 11.3 g/dL (12.0-15.5); LYMPH # 1.9 x10^3/uL (1.0-4.8); LYMPH % 37 % (24-48); MEAN CORPUSCULAR HEMOGLOBIN 24 pg (25-35); MEAN CORPUSCULAR HGB CONC 32 g/dL (31-37); MEAN CORPUSCULAR VOLUME 76 fL (79-100); MONO # 0.3 x10^3/uL (0.0-1.1); MONO % 6 % (0-9); NEUT # 2.9 x10^3uL (1.8-7.7); NEUT % 55 % (31-73); PLATELET COUNT 272 x10^3/uL (140-400); RED BLOOD COUNT 4.69 x10^6/uL (3.50-5.40); RED CELL DISTRIBUTION WIDTH 23.1 % (11.5-14.5); WHITE BLOOD COUNT 5.3 x10^3/uL (4.0-11.0)
[2017-08-12 13:56] LABS: ANION GAP 11 (6-14); BLOOD UREA NITROGEN 10 mg/dL (7-20); CALCIUM 9.1 mg/dL (8.5-10.1); CARBON DIOXIDE 25 mmol/L (21-32); CHLORIDE 100 mmol/L (98-107); CREATININE 0.6 mg/dL (0.6-1.0); GLUCOSE 299 mg/dL (70-99); POTASSIUM 4.2 mmol/L (3.5-5.1); SODIUM 136 mmol/L (136-145)
[2017-08-12 14:02] LABS: VANC TR 6.9 mcg/mL (10.0-20.0)
[2017-08-12] MEDS: VANCOMYCIN PER PHARMACY MC (15:18)
[2017-08-12 16:15] LABS: POC GLUCOSE 345 mg/dL (70-99)
[2017-08-12] MEDS: ONDANSETRON PF 4 MG/2 ML VIAL. IV ×2 (16:33→21:26)
[2017-08-12 20:44] LABS: POC GLUCOSE 273 mg/dL (70-99)
[2017-08-12] MEDS: QUEtiapine 100 MG TABLET. PO (21:25)
[2017-08-13] MEDS: VANCOMYCIN 1.25 GM in IV DEXTROSE 5 %-0.2 % NACL 250 ML IV ×3 (00:41→07:49)
[2017-08-13] MEDS: oxyCODONE/APAP 10/325 1 TAB TABLET PO ×3 (01:51→13:11)
[2017-08-13 03:55] LABS: ADD MAN DIFF? NO
[2017-08-13 03:58] LABS: BASO % 1 % (0-3); EOS # 0.2 x10^3/uL (0.0-0.7); EOS % 4 % (0-3); HEMATOCRIT 33.1 % (36.0-47.0); HEMOGLOBIN 10.5 g/dL (12.0-15.5); LYMPH % 39 % (24-48); MEAN CORPUSCULAR HEMOGLOBIN 25 pg (25-35); MEAN CORPUSCULAR HGB CONC 32 g/dL (31-37); MEAN CORPUSCULAR VOLUME 77 fL (79-100); MONO # 0.4 x10^3/uL (0.0-1.1); MONO % 7 % (0-9); NEUT # 2.5 x10^3uL (1.8-7.7); NEUT % 50 % (31-73); PLATELET COUNT 231 x10^3/uL (140-400); RED CELL DISTRIBUTION WIDTH 23.1 % (11.5-14.5); WHITE BLOOD COUNT 5.1 x10^3/uL (4.0-11.0)
[2017-08-13 04:10] LABS: ANION GAP 9 (6-14); BLOOD UREA NITROGEN 13 mg/dL (7-20); CALCIUM 8.6 mg/dL (8.5-10.1); CARBON DIOXIDE 28 mmol/L (21-32); CHLORIDE 99 mmol/L (98-107); CREATININE 0.7 mg/dL (0.6-1.0); GFR 99.6; GLUCOSE 348 mg/dL (70-99); POTASSIUM 4.6 mmol/L (3.5-5.1); SODIUM 136 mmol/L (136-145)
[2017-08-13] MEDS: CEFEPIME HCL IV Push 1 GM VIAL. IVP ×4 (06:00→21:31)
[2017-08-13 08:15] LABS: POC GLUCOSE 342 mg/dL (70-99)
[2017-08-13] MEDS: INSULIN ASPART 300 UNITS/3 ML INSULN.PEN SQ ×6 (08:30→17:28)
[2017-08-13] MEDS: INSULIN DETEMIR 300 UNITS/3 ML INSULN.PEN. SQ ×2 (08:31→21:30)
[2017-08-13 11:23] LABS: POC GLUCOSE 186 mg/dL (70-99)
[2017-08-13] MEDS: IOHEXOL 300 MG/ML 100ML VIAL. IV (15:45)
[2017-08-13] MEDS: IOHEXOL 240 MG/ML 50ML VIAL. PO (15:45)
[2017-08-13] MEDS ORDERED: CONTRAST GIVEN MC (16:00)
[2017-08-13] MEDS ORDERED: HEPARIN PF 500 UNIT/5 ML DISP.SYRIN. IV ×2 (16:30)
[2017-08-13] MEDS ORDERED: HEPARIN PF 5 UNIT/5 ML DISP.SYRIN. IV ×2 (16:30→17:12)
[2017-08-13 17:10] LABS: POC GLUCOSE 163 mg/dL (70-99)
[2017-08-13] MEDS: oxyCODONE/APAP 5/325 1 TAB TABLET PO ×2 (17:24→21:49)
[2017-08-13] MEDS: ENOXAPARIN 40 MG/0.4 ML SYRINGE. SQ (17:57)
[2017-08-13] MEDS: FAMOTIDINE 20 MG TABLET. PO (21:00)
[2017-08-13] MEDS: QUEtiapine 100 MG TABLET. PO (21:25)
[2017-08-13 21:31] LABS: POC GLUCOSE 193 mg/dL (70-99)
[2017-08-13] MEDS ORDERED: IBUPROFEN 400 MG TABLET. PO (22:00)
[2017-08-14] MEDS: oxyCODONE/APAP 5/325 1 TAB TABLET PO ×5 (04:28→23:13)
[2017-08-14] MEDS: CEFEPIME HCL IV Push 1 GM VIAL. IVP ×3 (06:00→22:02)
[2017-08-14 06:32] LABS: ADD MAN DIFF? NO
[2017-08-14 06:41] LABS: BASO # 0.1 x10^3/uL (0.0-0.2); BASO % 1 % (0-3); EOS # 0.2 x10^3/uL (0.0-0.7); EOS % 3 % (0-3); HEMOGLOBIN 10.7 g/dL (12.0-15.5); LYMPH # 1.6 x10^3/uL (1.0-4.8); LYMPH % 34 % (24-48); MEAN CORPUSCULAR HEMOGLOBIN 24 pg (25-35); MEAN CORPUSCULAR HGB CONC 32 g/dL (31-37); MEAN CORPUSCULAR VOLUME 75 fL (79-100); MONO # 0.3 x10^3/uL (0.0-1.1); MONO % 7 % (0-9); NEUT # 2.6 x10^3uL (1.8-7.7); NEUT % 55 % (31-73); PLATELET COUNT 226 x10^3/uL (140-400); RED BLOOD COUNT 4.51 x10^6/uL (3.50-5.40); RED CELL DISTRIBUTION WIDTH 22.6 % (11.5-14.5); WHITE BLOOD COUNT 4.8 x10^3/uL (4.0-11.0)
[2017-08-14 07:05] LABS: ALBUMIN 3.4 g/dL (3.4-5.0); ALBUMIN/GLOBULIN RATIO 0.9 (1.0-1.7); ALK PHOS 239 U/L (46-116); ALT (SGPT) 32 U/L (14-59); ANION GAP 11 (6-14); AST (SGOT) 31 U/L (15-37); BLOOD UREA NITROGEN 14 mg/dL (7-20); BUN/CREATININE RATIO 20 (6-20); CALCIUM 8.9 mg/dL (8.5-10.1); CARBON DIOXIDE 25 mmol/L (21-32); CHLORIDE 97 mmol/L (98-107); CREATININE 0.7 mg/dL (0.6-1.0); GFR 99.6; GLUCOSE 417 mg/dL (70-99); POTASSIUM 4.9 mmol/L (3.5-5.1); SODIUM 133 mmol/L (136-145); TOTAL BILIRUBIN 0.2 mg/dL (0.2-1.0); TOTAL PROTEIN 7.3 g/dL (6.4-8.2)
[2017-08-14] MEDS: FAMOTIDINE 20 MG TABLET. PO ×2 (09:00→21:00)
[2017-08-14 09:07] LABS: POC GLUCOSE 403 mg/dL (70-99)
[2017-08-14] MEDS: INSULIN DETEMIR 300 UNITS/3 ML INSULN.PEN. SQ ×2 (09:43→21:10)
[2017-08-14] MEDS: INSULIN ASPART 300 UNITS/3 ML INSULN.PEN SQ ×6 (09:43→17:38)
[2017-08-14 12:08] LABS: POC GLUCOSE 199 mg/dL (70-99)
[2017-08-14] MEDS: METOCLOPRAMIDE HCL 10 MG/2 ML VIAL. IV ×2 (12:21→22:01)
[2017-08-14] MEDS: ENOXAPARIN 40 MG/0.4 ML SYRINGE. SQ (17:41)
[2017-08-14 18:23] LABS: POC GLUCOSE 199 mg/dL (70-99)
[2017-08-14 20:50] LABS: POC GLUCOSE 229 mg/dL (70-99)
[2017-08-14] MEDS: QUEtiapine 100 MG TABLET. PO (21:08)
[2017-08-14] MEDS: LACTOBACILLUS RHAMNOSUS GG 1 CAPSULE. PO (21:08)
[2017-08-15] MEDS: oxyCODONE/APAP 5/325 1 TAB TABLET PO ×5 (03:15→20:38)
[2017-08-15] MEDS: CEFEPIME HCL IV Push 1 GM VIAL. IVP ×3 (06:00→22:00)
[2017-08-15 07:39] LABS: ADD MAN DIFF? NO
[2017-08-15 07:40] LABS: POC GLUCOSE 325 mg/dL (70-99)
[2017-08-15 07:44] LABS: BASO % 1 % (0-3); EOS # 0.2 x10^3/uL (0.0-0.7); EOS % 4 % (0-3); HEMATOCRIT 34.1 % (36.0-47.0); HEMOGLOBIN 10.8 g/dL (12.0-15.5); LYMPH # 1.9 x10^3/uL (1.0-4.8); LYMPH % 36 % (24-48); MEAN CORPUSCULAR HEMOGLOBIN 24 pg (25-35); MEAN CORPUSCULAR HGB CONC 32 g/dL (31-37); MEAN CORPUSCULAR VOLUME 76 fL (79-100); MONO # 0.4 x10^3/uL (0.0-1.1); MONO % 7 % (0-9); NEUT # 2.8 x10^3uL (1.8-7.7); NEUT % 53 % (31-73); PLATELET COUNT 237 x10^3/uL (140-400); RED BLOOD COUNT 4.47 x10^6/uL (3.50-5.40); RED CELL DISTRIBUTION WIDTH 22.1 % (11.5-14.5); WHITE BLOOD COUNT 5.3 x10^3/uL (4.0-11.0)
[2017-08-15 08:05] LABS: ALBUMIN 3.3 g/dL (3.4-5.0); ALBUMIN/GLOBULIN RATIO 0.9 (1.0-1.7); ALK PHOS 221 U/L (46-116); ALT (SGPT) 35 U/L (14-59); ANION GAP 8 (6-14); AST (SGOT) 34 U/L (15-37); BLOOD UREA NITROGEN 14 mg/dL (7-20); BUN/CREATININE RATIO 23 (6-20); CALCIUM 7.9 mg/dL (8.5-10.1); CARBON DIOXIDE 26 mmol/L (21-32); CHLORIDE 100 mmol/L (98-107); CREATININE 0.6 mg/dL (0.6-1.0); GLUCOSE 346 mg/dL (70-99); SODIUM 134 mmol/L (136-145); TOTAL BILIRUBIN 0.2 mg/dL (0.2-1.0); TOTAL PROTEIN 7.1 g/dL (6.4-8.2)
[2017-08-15 08:07] LABS: POTASSIUM 5.2 mmol/L (3.5-5.1)
[2017-08-15] MEDS: LACTOBACILLUS RHAMNOSUS GG 1 CAPSULE. PO ×2 (08:07→20:37)
[2017-08-15] MEDS: INSULIN DETEMIR 300 UNITS/3 ML INSULN.PEN. SQ ×2 (08:12→21:21)
[2017-08-15] MEDS: INSULIN ASPART 300 UNITS/3 ML INSULN.PEN SQ ×6 (08:12→17:44)
[2017-08-15] MEDS: FAMOTIDINE 20 MG TABLET. PO ×2 (09:00→20:40)
[2017-08-15 11:50] LABS: POC GLUCOSE 266 mg/dL (70-99)
[2017-08-15] MEDS: METOCLOPRAMIDE HCL 10 MG/2 ML VIAL. IV ×2 (13:39→22:00)
[2017-08-15] MEDS: ENOXAPARIN 40 MG/0.4 ML SYRINGE. SQ (18:00)
[2017-08-15] MEDS: QUEtiapine 100 MG TABLET. PO (20:38)
[2017-08-15 21:04] LABS: POC GLUCOSE 306 mg/dL (70-99)
[2017-08-15 21:04] LABS: POC GLUCOSE 209 mg/dL (70-99)
[2017-08-16] MEDS: oxyCODONE/APAP 5/325 1 TAB TABLET PO ×4 (00:36→12:43)
[2017-08-16] MEDS: CEFEPIME HCL IV Push 1 GM VIAL. IVP (05:38)
[2017-08-16 06:46] LABS: ADD MAN DIFF? NO
[2017-08-16 06:50] LABS: BASO % 1 % (0-3); EOS # 0.2 x10^3/uL (0.0-0.7); EOS % 3 % (0-3); HEMATOCRIT 34.2 % (36.0-47.0); HEMOGLOBIN 10.6 g/dL (12.0-15.5); LYMPH # 1.8 x10^3/uL (1.0-4.8); LYMPH % 34 % (24-48); MEAN CORPUSCULAR HEMOGLOBIN 23 pg (25-35); MEAN CORPUSCULAR HGB CONC 31 g/dL (31-37); MEAN CORPUSCULAR VOLUME 75 fL (79-100); MONO # 0.4 x10^3/uL (0.0-1.1); MONO % 7 % (0-9); NEUT % 56 % (31-73); PLATELET COUNT 243 x10^3/uL (140-400); RED BLOOD COUNT 4.55 x10^6/uL (3.50-5.40); RED CELL DISTRIBUTION WIDTH 22.2 % (11.5-14.5); WHITE BLOOD COUNT 5.5 x10^3/uL (4.0-11.0)
[2017-08-16 07:27] LABS: ALBUMIN 3.4 g/dL (3.4-5.0); ALBUMIN/GLOBULIN RATIO 0.9 (1.0-1.7); ALK PHOS 219 U/L (46-116); ALT (SGPT) 36 U/L (14-59); ANION GAP 11 (6-14); AST (SGOT) 27 U/L (15-37); BLOOD UREA NITROGEN 14 mg/dL (7-20); BUN/CREATININE RATIO 28 (6-20); CALCIUM 8.9 mg/dL (8.5-10.1); CARBON DIOXIDE 26 mmol/L (21-32); CHLORIDE 98 mmol/L (98-107); CREATININE 0.5 mg/dL (0.6-1.0); GFR 146.9; GLUCOSE 346 mg/dL (70-99); POTASSIUM 4.3 mmol/L (3.5-5.1); SODIUM 135 mmol/L (136-145); TOTAL BILIRUBIN 0.3 mg/dL (0.2-1.0); TOTAL PROTEIN 7.3 g/dL (6.4-8.2)
[2017-08-16 08:20] LABS: POC GLUCOSE 338 mg/dL (70-99)
[2017-08-16] MEDS: FAMOTIDINE 20 MG TABLET. PO (08:40)
[2017-08-16] MEDS: LACTOBACILLUS RHAMNOSUS GG 1 CAPSULE. PO (08:40)
[2017-08-16] MEDS: INSULIN DETEMIR 300 UNITS/3 ML INSULN.PEN. SQ (08:43)
[2017-08-16] MEDS: INSULIN ASPART 300 UNITS/3 ML INSULN.PEN SQ ×4 (08:44→12:18)
[2017-08-16] MEDS ORDERED: ACETAMINOPHEN 500 MG TABLET PO (09:00)
[2017-08-16] MEDS: CIPROFLOXACIN HCL 250 MG TABLET. PO (10:57)
[2017-08-16] MEDS: HEPARIN PF 500 UNIT/5 ML DISP.SYRIN. IV (11:21)
[2017-08-16 21:11] LABS: POC GLUCOSE 239 mg/dL (70-99)
== END 2017-08-16 13:13 | disposition home or self-care (01) | DRG 872 ==
LOC: ER 19:14 → 5 NORTH 08-10 08:24 → ED HOLD 22:13
DX: A41.9 Sepsis, unspecified organism (principal); E11.42 Type 2 diabetes mellitus with diabetic polyneuropathy; F11.20 Opioid dependence, uncomplicated; L03.113 Cellulitis of right upper limb; L03.114 Cellulitis of left upper limb; T36.1X5A Adverse effect of cephalosporins and other beta-lactam antibiotics, initial encounter; E66.9 Obesity, unspecified; G89.29 Other chronic pain; K43.9 Ventral hernia without obstruction or gangrene; Z53.20 Procedure and treatment not carried out because of patient's decision for unspecified reasons; Z76.5 Malingerer [conscious simulation]; Z79.4 Long term (current) use of insulin; Z86.14 Personal history of Methicillin resistant Staphylococcus aureus infection; Z88.0 Allergy status to penicillin; Z90.49 Acquired absence of other specified parts of digestive tract; Z91.19 Patient's noncompliance with other medical treatment and regimen; Z88.8 Allergy status to other drugs, medicaments and biological substances; Z90.721 Acquired absence of ovaries, unilateral; Z68.35 Body mass index [BMI] 35.0-35.9, adult
CPT/HCPCS: 36415; 73120; 73218; 74177; 80048; 80053; 80202; 81001; 81025; 82550; 82728; 82962; 83036; 83540; 83550; 83605; 83735; 85025; 85610; 85651; 85730; 87040; 87205; 96365; 96366; 96375; 99285; 99285-25; J0690; J0692; J1650; J1815; J2405; J2765; J2997; J3370; J7030; Q9966; Q9967

== ENCOUNTER 2017-10-12 21:53 | Emergency (ER) | payer SELFPAY ==
[2017-10-12] MEDS ORDERED: 0.9 % SOD CHL for STERILE FIELD 10 ML DISP.SYRIN. (23:27)
[2017-10-12 23:56] LABS: ADD MAN DIFF? NO
[2017-10-12 23:58] LABS: BASO % 0 % (0-3); EOS # 0.1 x10^3/uL (0.0-0.7); EOS % 2 % (0-3); HEMATOCRIT 35.7 % (36.0-47.0); HEMOGLOBIN 11.1 g/dL (12.0-15.5); LYMPH # 1.7 x10^3/uL (1.0-4.8); LYMPH % 26 % (24-48); MEAN CORPUSCULAR HEMOGLOBIN 24 pg (25-35); MEAN CORPUSCULAR HGB CONC 31 g/dL (31-37); MEAN CORPUSCULAR VOLUME 76 fL (79-100); MONO # 0.5 x10^3/uL (0.0-1.1); MONO % 7 % (0-9); NEUT # 4.4 x10^3uL (1.8-7.7); NEUT % 65 % (31-73); PLATELET COUNT 260 x10^3/uL (140-400); RED BLOOD COUNT 4.68 x10^6/uL (3.50-5.40); WHITE BLOOD COUNT 6.8 x10^3/uL (4.0-11.0)
[2017-10-13 00:32] LABS: ANION GAP 16 (6-14); BLOOD UREA NITROGEN 9 mg/dL (7-20); CALCIUM 8.7 mg/dL (8.5-10.1); CARBON DIOXIDE 19 mmol/L (21-32); CHLORIDE 94 mmol/L (98-107); POTASSIUM 3.9 mmol/L (3.5-5.1); SODIUM 129 mmol/L (136-145)
[2017-10-13 00:35] LABS: GLUCOSE 596 mg/dL (70-99)
[2017-10-13] MEDS: IV NORMAL SALINE 1000ML BAG 1,000 ML IV ×2 (00:45)
[2017-10-13] MEDS: INSULIN REGULAR 100 UNIT/ML 10ML VIAL. IV ×2 (01:10→03:15)
[2017-10-13] MEDS: METOCLOPRAMIDE HCL 10 MG/2 ML VIAL. IV (01:11)
[2017-10-13 03:09] LABS: POC GLUCOSE 350 mg/dL (70-99)
[2017-10-13 03:23] LABS: LACTIC ACID 2.1 mmol/L (0.4-2.0)
[2017-10-13] MEDS: HEPARIN PF 500 UNIT/5 ML DISP.SYRIN. IV (03:45)
== END 2017-10-13 03:50 | disposition home or self-care (01) ==
LOC: ER 10-13 03:50
DX: E86.0 Dehydration (principal); E10.65 Type 1 diabetes mellitus with hyperglycemia; L03.011 Cellulitis of right finger; E10.40 Type 1 diabetes mellitus with diabetic neuropathy, unspecified; G89.29 Other chronic pain; Z90.49 Acquired absence of other specified parts of digestive tract; Z90.721 Acquired absence of ovaries, unilateral; Z89.012 Acquired absence of left thumb; Z88.0 Allergy status to penicillin; Z88.1 Allergy status to other antibiotic agents; Z88.4 Allergy status to anesthetic agent; Z88.5 Allergy status to narcotic agent; Z86.14 Personal history of Methicillin resistant Staphylococcus aureus infection
CPT/HCPCS: 36415; 80048; 82962; 83605; 85025; 96361; 96374; 96375; 99284-25; J1815; J2765; J7030

== ENCOUNTER 2017-10-26 13:42 | Inpatient (IN) | payer SELFPAY ==
[2017-10-26 14:13] LABS: URINE HCG POC HCG NEGATIVE (Negative)
[2017-10-26 14:15] LABS: POC GLUCOSE 561 mg/dL (70-99)
[2017-10-26] MEDS ORDERED: 0.9 % SODIUM CHLORIDE 10 ML DISP.SYRIN. IV (14:45)
[2017-10-26 14:59] LABS: ADD MAN DIFF? NO
[2017-10-26] MEDS: IV NORMAL SALINE 1000ML BAG 1,000 ML IV ×2 (15:00→18:25)
[2017-10-26] MEDS: PROMETHAZINE 12.5 MG in IV DEXTROSE 5% 50 ML IV (15:01)
[2017-10-26] MEDS: MORPHINE SULFATE 4 MG/ML DISP.SYRIN. IV/SQ ×2 (15:01→16:41)
[2017-10-26 15:02] LABS: BASE EXCESS ABG -6 mmol/L (-3-3); HCO3 ABG 18 mmol/L (21-28); PCO2 ABG 29 mmHg (35-46); PH ABG 7.41 (7.35-7.45); PO2 ABG 98 mmHg (85-108); SAT O2 ABG 97 % (92-99)
[2017-10-26 15:06] LABS: FIO2 ABG 21
[2017-10-26 15:10] LABS: BASO % 0 % (0-3); BILIRUBIN,URINE NEGATIVE (NEG); CLARITY,URINE CLEAR; COLOR,URINE YELLOW; EOS # 0.1 x10^3/uL (0.0-0.7); EOS % 1 % (0-3); GLUCOSE,URINE >=1000 mg/dL (NEG); HEMATOCRIT 33.9 % (36.0-47.0); HEMOGLOBIN 10.7 g/dL (12.0-15.5); LYMPH # 1.7 x10^3/uL (1.0-4.8); LYMPH % 33 % (24-48); MEAN CORPUSCULAR HEMOGLOBIN 24 pg (25-35); MEAN CORPUSCULAR HGB CONC 32 g/dL (31-37); MEAN CORPUSCULAR VOLUME 76 fL (79-100); MONO # 0.5 x10^3/uL (0.0-1.1); MONO % 9 % (0-9); NEUT % 56 % (31-73); NITRITE,URINE NEGATIVE (NEG); PH,URINE 6.5; PLATELET COUNT 234 x10^3/uL (140-400); PROTEIN,URINE NEGATIVE (NEG-TRACE); RED BLOOD COUNT 4.46 x10^6/uL (3.50-5.40); UROBILINOGEN,URINE 0.2 mg/dL (0.2 mg/dL); WHITE BLOOD COUNT 5.2 x10^3/uL (4.0-11.0)
[2017-10-26 15:17] LABS: BACTERIA,URINE 0 /HPF (0-FEW); RBC,URINE 0 /HPF (0-2); SQUAMOUS EPITHELIAL CELL,UR FEW /LPF; WBC,URINE OCC /HPF (0-4); YEAST,URINE PRESENT /HPF
[2017-10-26 15:21] LABS: ALBUMIN 3.3 g/dL (3.4-5.0); ALK PHOS 282 U/L (46-116); ALT (SGPT) 38 U/L (14-59); ANION GAP 12 (6-14); AST (SGOT) 31 U/L (15-37); BLOOD UREA NITROGEN 8 mg/dL (7-20); C-REACTIVE PROTEIN 12.5 mg/L (0-3.3); CALCIUM 8.8 mg/dL (8.5-10.1); CARBON DIOXIDE 22 mmol/L (21-32); CHLORIDE 94 mmol/L (98-107); CREATININE 0.9 mg/dL (0.6-1.0); DIRECT BILIRUBIN 0.1 mg/dL (0.0-0.2); GFR 74.6; LIPASE 144 U/L (73-393); POTASSIUM 4.2 mmol/L (3.5-5.1); SODIUM 128 mmol/L (136-145); TOTAL BILIRUBIN 0.3 mg/dL (0.2-1.0); TOTAL PROTEIN 7.8 g/dL (6.4-8.2)
[2017-10-26 15:26] LABS: GLUCOSE 593 mg/dL (70-99)
[2017-10-26 15:29] LABS: CKMB MASS 1.3 ng/mL (0.0-3.6); CREATINE KINASE 41 U/L (26-192)
[2017-10-26 15:40] LABS: ACETONE NEG (NEG)
[2017-10-26 16:16] LABS: SEDIMENTATION RATE 37 (0-25)
[2017-10-26] MEDS: INSULIN REGULAR 100 UNIT/ML 10ML VIAL. IV (16:43)
[2017-10-26] MEDS: PROMETHAZINE IV (18:24)
[2017-10-26] MEDS: DEXTROSE 5% IV (18:24)
[2017-10-26] MEDS: MORPHINE SULFATE 4 MG/ML DISP.SYRIN. IV ×3 (18:26→23:28)
[2017-10-26] MEDS: ENOXAPARIN 40 MG/0.4 ML SYRINGE. SQ (18:30)
[2017-10-26 19:20] LABS: POC GLUCOSE 272 mg/dL (70-99)
[2017-10-26] MEDS: VANCOMYCIN 2 GM in IV DEXTROSE 5% 500 ML IV (19:30)
[2017-10-26] MEDS ORDERED: NON FORMULARY ITEM (Naproxen 1 TAB) PO (21:00)
[2017-10-26] MEDS: VANCOMYCIN PER PHARMACY MC (21:36)
[2017-10-26] MEDS: FERROUS SULFATE 325 MG TABLET. PO (21:40)
[2017-10-26] MEDS: traZODone 100 MG TABLET. PO (21:41)
[2017-10-26] MEDS: traMADol 50 MG TABLET PO (21:42)
[2017-10-26 22:26] LABS: POC GLUCOSE 140 mg/dL (70-99)
[2017-10-26] MEDS: INSULIN DETEMIR 300 UNITS/3 ML INSULN.PEN. SQ (23:01)
[2017-10-27] MEDS: MORPHINE SULFATE 4 MG/ML DISP.SYRIN. IV ×7 (02:03→21:24)
[2017-10-27] MEDS: diazePAM 5 MG TABLET PO ×3 (03:15→19:47)
[2017-10-27] MEDS: IV NORMAL SALINE 1000ML BAG 1,000 ML IV ×2 (03:15→08:30)
[2017-10-27] MEDS: FERROUS SULFATE 325 MG TABLET. PO ×2 (08:19→18:19)
[2017-10-27 08:26] LABS: POC GLUCOSE 155 mg/dL (70-99)
[2017-10-27] MEDS: INSULIN ASPART 300 UNITS/3 ML INSULN.PEN SQ ×5 (08:45→18:00)
[2017-10-27] MEDS: INSULIN DETEMIR 300 UNITS/3 ML INSULN.PEN. SQ ×2 (08:45→22:36)
[2017-10-27 09:22] LABS: GFR 146.9
[2017-10-27 09:22] LABS: CREATININE 0.5 mg/dL (0.6-1.0)
[2017-10-27] MEDS: VANCOMYCIN 1.5 GM in IV DEXTROSE 5 %-0.2 % NACL 500 ML IV ×2 (10:33→19:48)
[2017-10-27] MEDS ORDERED: DEXTROSE 50% 25 GM / 50ML DISP.SYRIN. IV (11:00)
[2017-10-27] MEDS: traMADol 50 MG TABLET PO ×2 (11:26→18:19)
[2017-10-27 12:07] LABS: POC GLUCOSE 111 mg/dL (70-99)
[2017-10-27] MEDS: VANCOMYCIN PER PHARMACY MC (13:03)
[2017-10-27] MEDS: LACTOBACILLUS RHAMNOSUS GG 1 CAPSULE. PO ×2 (14:11→22:33)
[2017-10-27] MEDS ORDERED: DOCUSATE SODIUM 100 MG CAPSULE. PO (14:45)
[2017-10-27] MEDS ORDERED: ACETAMINOPHEN 325 MG TABLET. PO (14:45)
[2017-10-27] MEDS ORDERED: hydrALAZINE 20 MG/ML VIAL. IVP (14:45)
[2017-10-27 16:53] LABS: POC GLUCOSE 90 mg/dL (70-99)
[2017-10-27] MEDS: ENOXAPARIN 40 MG/0.4 ML SYRINGE. SQ (18:30)
[2017-10-27 21:36] LABS: POC GLUCOSE 95 mg/dL (70-99)
[2017-10-27] MEDS: traZODone 100 MG TABLET. PO (22:33)
[2017-10-28] MEDS: MORPHINE SULFATE 4 MG/ML DISP.SYRIN. IV ×8 (01:03→23:07)
[2017-10-28] MEDS: ONDANSETRON PF 4 MG/2 ML VIAL. IV ×2 (02:02→15:44)
[2017-10-28 07:19] LABS: POC GLUCOSE 85 mg/dL (70-99)
[2017-10-28 07:46] LABS: ADD MAN DIFF? NO
[2017-10-28 07:53] LABS: BASO % 1 % (0-3); EOS # 0.3 x10^3/uL (0.0-0.7); EOS % 5 % (0-3); LYMPH # 1.9 x10^3/uL (1.0-4.8); LYMPH % 37 % (24-48); MEAN CORPUSCULAR HEMOGLOBIN 24 pg (25-35); MEAN CORPUSCULAR HGB CONC 32 g/dL (31-37); MEAN CORPUSCULAR VOLUME 75 fL (79-100); MONO # 0.4 x10^3/uL (0.0-1.1); MONO % 9 % (0-9); NEUT # 2.5 x10^3uL (1.8-7.7); NEUT % 49 % (31-73); PLATELET COUNT 222 x10^3/uL (140-400); RED BLOOD COUNT 4.13 x10^6/uL (3.50-5.40); WHITE BLOOD COUNT 5.2 x10^3/uL (4.0-11.0)
[2017-10-28] MEDS: INSULIN ASPART 300 UNITS/3 ML INSULN.PEN SQ ×6 (08:00→17:31)
[2017-10-28 08:05] LABS: ANION GAP 9 (6-14); BLOOD UREA NITROGEN 4 mg/dL (7-20); CALCIUM 8.3 mg/dL (8.5-10.1); CARBON DIOXIDE 25 mmol/L (21-32); CHLORIDE 107 mmol/L (98-107); CREATININE 0.5 mg/dL (0.6-1.0); GFR 146.9; GLUCOSE 86 mg/dL (70-99); SODIUM 141 mmol/L (136-145)
[2017-10-28] MEDS: FERROUS SULFATE 325 MG TABLET. PO ×2 (08:08→17:28)
[2017-10-28] MEDS: diazePAM 5 MG TABLET PO ×3 (08:08→23:39)
[2017-10-28 08:11] LABS: VANC TR 7.7 mcg/mL (10.0-20.0)
[2017-10-28] MEDS: VANCOMYCIN PER PHARMACY MC (08:22)
[2017-10-28] MEDS: VANCOMYCIN 1.5 GM in IV DEXTROSE 5 %-0.2 % NACL 500 ML IV (08:30)
[2017-10-28] MEDS: LACTOBACILLUS RHAMNOSUS GG 1 CAPSULE. PO ×2 (09:17→20:52)
[2017-10-28] MEDS: INSULIN DETEMIR 300 UNITS/3 ML INSULN.PEN. SQ ×2 (09:22→21:04)
[2017-10-28] MEDS: MEROPENEM 1 GM in IV NORMAL SALINE 100ML 100 ML IV ×3 (10:03→21:28)
[2017-10-28 11:25] LABS: POC GLUCOSE 94 mg/dL (70-99)
[2017-10-28] MEDS: traMADol 50 MG TABLET PO ×2 (15:45→22:04)
[2017-10-28] MEDS: PSYLLIUM HUSK (SUGAR FREE) 1 PKT PACKET PO (15:46)
[2017-10-28 16:39] LABS: POC GLUCOSE 70 mg/dL (70-99)
[2017-10-28] MEDS: ENOXAPARIN 40 MG/0.4 ML SYRINGE. SQ (18:51)
[2017-10-28 20:39] LABS: POC GLUCOSE 232 mg/dL (70-99)
[2017-10-28] MEDS: traZODone 100 MG TABLET. PO (22:00)
[2017-10-29] MEDS: MORPHINE SULFATE 4 MG/ML DISP.SYRIN. IV ×4 (01:14→08:23)
[2017-10-29] MEDS: traMADol 50 MG TABLET PO ×3 (04:53→20:22)
[2017-10-29] MEDS: MEROPENEM 1 GM in IV NORMAL SALINE 100ML 100 ML IV ×3 (05:43→20:21)
[2017-10-29] MEDS: ONDANSETRON PF 4 MG/2 ML VIAL. IV (05:55)
[2017-10-29] MEDS: INSULIN ASPART 300 UNITS/3 ML INSULN.PEN SQ ×6 (07:30→18:01)
[2017-10-29 07:46] LABS: POC GLUCOSE 293 mg/dL (70-99)
[2017-10-29] MEDS: FERROUS SULFATE 325 MG TABLET. PO ×2 (08:14→17:36)
[2017-10-29] MEDS: LACTOBACILLUS RHAMNOSUS GG 1 CAPSULE. PO ×2 (08:15→20:22)
[2017-10-29] MEDS: PSYLLIUM HUSK (SUGAR FREE) 1 PKT PACKET PO (08:17)
[2017-10-29] MEDS: INSULIN DETEMIR 300 UNITS/3 ML INSULN.PEN. SQ ×2 (08:49→20:30)
[2017-10-29] MEDS: oxyCODONE/APAP 5/325 1 TAB TABLET PO (10:12)
[2017-10-29] MEDS: oxyCODONE IR 5 MG TABLET PO ×2 (10:40→17:36)
[2017-10-29 12:11] LABS: POC GLUCOSE 179 mg/dL (70-99)
[2017-10-29 16:51] LABS: POC GLUCOSE 118 mg/dL (70-99)
[2017-10-29] MEDS: ENOXAPARIN 40 MG/0.4 ML SYRINGE. SQ (17:36)
[2017-10-29] MEDS: traZODone 100 MG TABLET. PO (20:22)
[2017-10-29 20:39] LABS: POC GLUCOSE 81 mg/dL (70-99)
[2017-10-29] MEDS: diazePAM 5 MG TABLET PO (22:41)
[2017-10-30] MEDS: oxyCODONE IR 5 MG TABLET PO ×4 (00:29→20:32)
[2017-10-30] MEDS: traMADol 50 MG TABLET PO ×4 (03:10→23:36)
[2017-10-30] MEDS: diazePAM 5 MG TABLET PO ×3 (06:32→20:32)
[2017-10-30] MEDS: MEROPENEM 1 GM in IV NORMAL SALINE 100ML 100 ML IV ×3 (06:33→22:10)
[2017-10-30 07:22] LABS: POC GLUCOSE 296 mg/dL (70-99)
[2017-10-30] MEDS: INSULIN ASPART 300 UNITS/3 ML INSULN.PEN SQ ×6 (08:00→17:30)
[2017-10-30] MEDS: PSYLLIUM HUSK (SUGAR FREE) 1 PKT PACKET PO (09:00)
[2017-10-30] MEDS: LACTOBACILLUS RHAMNOSUS GG 1 CAPSULE. PO ×2 (09:24→22:10)
[2017-10-30] MEDS: FERROUS SULFATE 325 MG TABLET. PO ×2 (09:24→17:25)
[2017-10-30] MEDS: INSULIN DETEMIR 300 UNITS/3 ML INSULN.PEN. SQ ×2 (09:39→23:01)
[2017-10-30 11:36] LABS: POC GLUCOSE 294 mg/dL (70-99)
[2017-10-30 15:04] LABS: POC GLUCOSE 135 mg/dL (70-99)
[2017-10-30 16:33] LABS: POC GLUCOSE 256 mg/dL (70-99)
[2017-10-30] MEDS: ENOXAPARIN 40 MG/0.4 ML SYRINGE. SQ (17:30)
[2017-10-30 21:33] LABS: POC GLUCOSE 357 mg/dL (70-99)
[2017-10-30] MEDS: traZODone 100 MG TABLET. PO (22:10)
[2017-10-31] MEDS: diazePAM 5 MG TABLET PO ×4 (02:37→23:04)
[2017-10-31] MEDS: oxyCODONE IR 5 MG TABLET PO ×4 (02:37→23:04)
[2017-10-31] MEDS: MEROPENEM 1 GM in IV NORMAL SALINE 100ML 100 ML IV ×2 (05:46→13:16)
[2017-10-31] MEDS: traMADol 50 MG TABLET PO ×3 (05:46→20:12)
[2017-10-31 07:21] LABS: POC GLUCOSE 279 mg/dL (70-99)
[2017-10-31] MEDS: PSYLLIUM HUSK (SUGAR FREE) 1 PKT PACKET PO (09:00)
[2017-10-31] MEDS: FERROUS SULFATE 325 MG TABLET. PO ×2 (09:50→16:23)
[2017-10-31] MEDS: LACTOBACILLUS RHAMNOSUS GG 1 CAPSULE. PO ×2 (09:51→20:11)
[2017-10-31] MEDS: INSULIN ASPART 300 UNITS/3 ML INSULN.PEN SQ ×6 (10:03→17:53)
[2017-10-31] MEDS: INSULIN DETEMIR 300 UNITS/3 ML INSULN.PEN. SQ ×2 (10:04→20:17)
[2017-10-31 10:55] LABS: ADD MAN DIFF? NO
[2017-10-31 11:07] LABS: BASO % 1 % (0-3); EOS # 0.1 x10^3/uL (0.0-0.7); EOS % 2 % (0-3); HEMATOCRIT 33.5 % (36.0-47.0); HEMOGLOBIN 10.5 g/dL (12.0-15.5); LYMPH % 35 % (24-48); MEAN CORPUSCULAR HEMOGLOBIN 23 pg (25-35); MEAN CORPUSCULAR HGB CONC 31 g/dL (31-37); MEAN CORPUSCULAR VOLUME 75 fL (79-100); MONO # 0.3 x10^3/uL (0.0-1.1); MONO % 6 % (0-9); NEUT # 3.2 x10^3uL (1.8-7.7); NEUT % 57 % (31-73); PLATELET COUNT 224 x10^3/uL (140-400); RED BLOOD COUNT 4.48 x10^6/uL (3.50-5.40); RED CELL DISTRIBUTION WIDTH 18.4 % (11.5-14.5); WHITE BLOOD COUNT 5.6 x10^3/uL (4.0-11.0)
[2017-10-31 11:08] LABS: ANION GAP 8 (6-14); BLOOD UREA NITROGEN 13 mg/dL (7-20); CALCIUM 8.9 mg/dL (8.5-10.1); CARBON DIOXIDE 27 mmol/L (21-32); CHLORIDE 99 mmol/L (98-107); CREATININE 0.7 mg/dL (0.6-1.0); GFR 99.6; GLUCOSE 329 mg/dL (70-99); POTASSIUM 4.3 mmol/L (3.5-5.1); SODIUM 134 mmol/L (136-145)
[2017-10-31 12:24] LABS: POC GLUCOSE 237 mg/dL (70-99)
[2017-10-31] MEDS: cefTRIAXone IV Push 1 GM VIAL. IVP (16:24)
[2017-10-31 17:02] LABS: POC GLUCOSE 277 mg/dL (70-99)
[2017-10-31] MEDS: ENOXAPARIN 40 MG/0.4 ML SYRINGE. SQ (17:55)
[2017-10-31] MEDS: traZODone 100 MG TABLET. PO (20:11)
[2017-10-31 20:21] LABS: POC GLUCOSE 224 mg/dL (70-99)
[2017-11-01] MEDS: traMADol 50 MG TABLET PO ×2 (02:43→11:29)
[2017-11-01 07:12] LABS: POC GLUCOSE 275 mg/dL (70-99)
[2017-11-01] MEDS: PSYLLIUM HUSK (SUGAR FREE) 1 PKT PACKET PO (08:22)
[2017-11-01] MEDS: LACTOBACILLUS RHAMNOSUS GG 1 CAPSULE. PO (08:22)
[2017-11-01] MEDS: FERROUS SULFATE 325 MG TABLET. PO (08:23)
[2017-11-01] MEDS: oxyCODONE IR 5 MG TABLET PO ×2 (08:23→09:38)
[2017-11-01] MEDS: diazePAM 5 MG TABLET PO (08:24)
[2017-11-01] MEDS: INSULIN DETEMIR 300 UNITS/3 ML INSULN.PEN. SQ (08:30)
[2017-11-01] MEDS: INSULIN ASPART 300 UNITS/3 ML INSULN.PEN SQ ×4 (08:31→11:31)
[2017-11-01] MEDS: CIPROFLOXACIN HCL 250 MG TABLET. PO (11:28)
[2017-11-01 11:32] LABS: POC GLUCOSE 193 mg/dL (70-99)
[2017-11-01] MEDS ORDERED: HEPARIN PF 500 UNIT/5 ML DISP.SYRIN. IV (13:45)
== END 2017-11-01 14:56 | disposition home or self-care (01) | DRG 602 ==
LOC: 5 SOUTH 10-28 21:42 → ER 13:42 → 5 SOUTH 16:01
DX: L03.113 Cellulitis of right upper limb (principal); E10.10 Type 1 diabetes mellitus with ketoacidosis without coma; E10.42 Type 1 diabetes mellitus with diabetic polyneuropathy; R78.81 Bacteremia; E87.0 Hyperosmolality and hypernatremia; C56.9 Malignant neoplasm of unspecified ovary; B96.20 Unspecified Escherichia coli [E. coli] as the cause of diseases classified elsewhere; E10.65 Type 1 diabetes mellitus with hyperglycemia; L03.114 Cellulitis of left upper limb; D64.9 Anemia, unspecified; E78.5 Hyperlipidemia, unspecified; F17.210 Nicotine dependence, cigarettes, uncomplicated; I10 Essential (primary) hypertension; F41.9 Anxiety disorder, unspecified; G89.29 Other chronic pain; M19.90 Unspecified osteoarthritis, unspecified site; S61.206A Unspecified open wound of right little finger without damage to nail, initial encounter; Z79.4 Long term (current) use of insulin; Z81.8 Family history of other mental and behavioral disorders; Z82.0 Family history of epilepsy and other diseases of the nervous system; Z82.49 Family history of ischemic heart disease and other diseases of the circulatory system; Z82.5 Family history of asthma and other chronic lower respiratory diseases; Z83.3 Family history of diabetes mellitus; Z83.511 Family history of glaucoma; Z86.14 Personal history of Methicillin resistant Staphylococcus aureus infection; Z88.1 Allergy status to other antibiotic agents; Z90.49 Acquired absence of other specified parts of digestive tract; Z91.19 Patient's noncompliance with other medical treatment and regimen; Z90.721 Acquired absence of ovaries, unilateral; Z88.0 Allergy status to penicillin; Z88.8 Allergy status to other drugs, medicaments and biological substances
CPT/HCPCS: 36415; 36600; 73130; 74176; 76705; 80048; 80076; 80202; 81001; 81025; 82010; 82553; 82565; 82805; 82962; 83690; 85025; 85651; 86140; 87040; 87070; 87205; 93005; 96365; 96375; 96376; 99291; 99291-25; J0696; J1650; J1815; J2060; J2185; J2270; J2405; J2550; J3370; J7030

== ENCOUNTER 2018-04-29 21:21 | Inpatient (IN) | payer SELFPAY ==
[~2018-04-29] VITALS: Ht 170.2 cm; Wt 102.5 kg
[~2018-04-29 21:21] MED LIST changes: +CIPR250T30 PO; +CIPR500T94 PO; +FERR325T14 PO; +NAPR-695 PO; -OXYC5TAB PO; +OXYC5TAB95 PO; +POTA10TA12 PO; -POTASSIUM CHLO10 MEQ PO; +QUET100T4 PO; +SULF1TAB23 PO; +TRAZ-85 PO; +TRAZ-86 PO; -TRAZ100T12 PO; -TRAZ50TA15 PO
[2018-04-29] MEDS ORDERED: IV NORMAL SALINE 1000ML BAG 1,000 ML IV ONE ×2 (22:00→23:00)
[2018-04-29 22:14] LABS: BILIRUBIN,URINE NEGATIVE (NEG); CLARITY,URINE CLOUDY; COLOR,URINE YELLOW; NITRITE,URINE NEGATIVE (NEG); PROTEIN,URINE 100 mg/dL (NEG-TRACE); UROBILINOGEN,URINE 0.2 mg/dL (0.2 mg/dL)
--- NOTE | 2018-04-29 22:14 | PHYS DOC ---
Past Medical History Past Medical History: Anxiety, Diabetes-Type I, MRSA, Other Additional Past Medical Histor: neuropathy,ovarian cyst,VENTRAL HERNIA, hyperglycemia,D&C Past Surgical History: Appendectomy, Cholecystectomy, , Oophorectomy, Other Additional Past Surgical Histo: R fallopian, L ovary cyst removed,HERNIA REPAIR , I&D L ARM, left thumb amp Alcohol Use: None Drug Use: None Adult General Chief Complaint Chief Complaint: HYPERGLYCEMIA HPI HPI Patient is a 27 year old female who presents with nausea and vomiting. Patient is known to be a brittle diabetic. She does state she has been compliant with her insulin. She took an extra 10 units today but complains that her blood sugar is still not controlled. The patient did recently have a lipoma removed from the abdomen wall. The wound has been healing by secondary intention. The patient states she was placed on Zyvox because a culture of the wound revealed MRSA. Since starting that medicine 3 days earlier, the patient has had persistent nausea and vomiting. She states she is unable to keep down any food. She does not complain of abdominal pain other than pain at the wound site. No fever or chills. Review of Systems Review of Systems Constitutional: Denies fever or chills Eyes: Denies change in visual acuity, redness HENT: Denies nasal congestion or sore throat Respiratory: Denies cough or shortness of breath Cardiovascular: No additional information not addressed in HPI GI: Denies abdominal pain : Denies dysuria Musculoskeletal: Denies back pain Integument: Denies rash Neurologic: Denies headache Endocrine: Denies polyuria All other systems were reviewed and found to be within normal limits, except as documented in this note. Current Medications Current Medications Current Medications Medications (Trade) Dose Ordered Sig/Naya Start Time Stop Time Status Last Admin Dose Admin Diphenhydramine HCl (Benadryl) 25 mg 1X ONCE 04/30/18 02:00 04/30/18 02:01 DC 04/30/18 02:16 25 MG Haloperidol Lactate (Haldol Inj) 5 mg 1X ONCE 04/29/18 23:00 04/29/18 23:00 DC Insulin Human Regular (HumuLIN R VIAL) 5 unit 1X ONCE 04/30/18 02:00 04/30/18 02:01 DC 04/30/18 02:18 5 UNIT Levofloxacin/ Dextrose 100 ml @ 100 mls/hr 1X ONCE 04/29/18 23:45 04/30/18 00:44 DC 04/29/18 23:47 100 MLS/HR Lorazepam (Ativan) 1 mg 1X ONCE 04/30/18 02:00 04/30/18 02:01 DC 04/30/18 02:14 1 MG Morphine Sulfate (Morphine Sulfate) 8 mg 1X ONCE 04/30/18 03:00 04/30/18 03:01 DC 04/30/18 02:41 8 MG Prochlorperazine Edisylate (Compazine) 10 mg 1X ONCE 04/30/18 02:00 04/30/18 02:01 DC 04/30/18 02:16 10 MG Promethazine HCl (Phenergan Im) 25 mg 1X ONCE 04/29/18 23:00 04/29/18 23:00 DC Sodium Chloride 1,000 ml @ 1,000 mls/hr 1X ONCE 04/30/18 03:00 04/30/18 03:59 DC 04/30/18 02:41 1,000 MLS/HR Allergies Allergies Allergies Coded Allergies Type Severity Reaction Last Updated Verified Penicillins Allergy Severe ANAPHYLAXIS, cefepime ok 11/12/16 Yes doxycycline Allergy Intermediate 11/12/16 Yes fentanyl Allergy Intermediate 11/12/16 Yes hydrocodone Adverse Reaction Intermediate itching 11/12/16 Yes Physical Exam Physical Exam Constitutional: Well developed, well nourished, no acute distress HENT: Normocephalic, atraumatic, bilateral external ears normal, oropharynx mois Neck: Normal range of motion, no tenderness, supple Cardiovascular: tachy HR, no murmur Lungs & Thorax: Bilateral breath sounds clear Abdomen: Bowel sounds normal, soft, no tenderness Skin: Warm, dry, no erythema Back: No tenderness Extremities: No tenderness, no cyanosis Neurologic: Alert and oriented X 3 Psychologic: Affect normal Current Patient Data Vital Signs Vital Signs Date Time Temp Pulse Resp B/P (MAP) Pulse Ox O2 Delivery O2 Flow Rate FiO2 04/30/18 02:46 124 24 138/83 (101) 97 04/30/18 01:30 Room Air 04/29/18 21:47 97.8 97.8 Lab Values Laboratory Tests Test 04/29/18 21:37 04/29/18 22:40 04/30/18 00:33 Urine Collection Type Unknown Urine Color Yellow Urine Clarity Cloudy Urine pH 6.0 Urine Specific [place] >=1.030 Urine Protein 100 mg/dL (NEG-TRACE) Urine Glucose (UA) >=1000 mg/dL (NEG) Urine Ketones (Stick) Negative mg/dL (NEG) Urine Blood Large (NEG) Urine Nitrite Negative (NEG) Urine Bilirubin Negative (NEG) Urine Urobilinogen Dipstick 0.2 mg/dL (0.2 mg/dL) Urine Leukocyte Esterase Moderate (NEG) Urine RBC Tntc /HPF (0-2) Urine WBC Tntc /HPF (0-4) Urine Squamous Epithelial Cells Occ /LPF Urine Bacteria Mod /HPF (0-FEW) White Blood Count 8.4 x10^3/uL (4.0-11.0) Red Blood Count 4.24 x10^6/uL (3.50-5.40) Hemoglobin 11.3 g/dL (12.0-15.5) L Hematocrit 33.7 % (36.0-47.0) L Mean Corpuscular Volume 80 fL (79-100) Mean Corpuscular Hemoglobin 27 pg (25-35) Mean Corpuscular Hemoglobin Concent 34 g/dL (31-37) Red Cell Distribution Width 15.8 % (11.5-14.5) H Platelet Count 198 x10^3/uL (140-400) Neutrophils (%) (Auto) 75 % (31-73) H Lymphocytes (%) (Auto) 18 % (24-48) L Monocytes (%) (Auto) 6 % (0-9) Eosinophils (%) (Auto) 1 % (0-3) Basophils (%) (Auto) 1 % (0-3) Neutrophils # (Auto) 6.3 x10^3uL (1.8-7.7) Lymphocytes # (Auto) 1.5 x10^3/uL (1.0-4.8) Monocytes # (Auto) 0.5 x10^3/uL (0.0-1.1) Eosinophils # (Auto) 0.1 x10^3/uL (0.0-0.7) Basophils # (Auto) 0.0 x10^3/uL (0.0-0.2) Sodium Level 126 mmol/L (136-145) L Potassium Level 4.1 mmol/L (3.5-5.1) Chloride Level 89 mmol/L (98-107) L Carbon Dioxide Level 20 mmol/L (21-32) L Anion Gap 17 (6-14) H Blood Urea Nitrogen 7 mg/dL (7-20) Creatinine 1.0 mg/dL (0.6-1.0) Estimated GFR (Cockcroft-Gault) 65.6 Glucose Level 686 mg/dL (70-99) *H Calcium Level 9.0 mg/dL (8.5-10.1) Total Bilirubin 0.4 mg/dL (0.2-1.0) Direct Bilirubin 0.2 mg/dL (0.0-0.2) Aspartate Amino Transferase (AST) 25 U/L (15-37) Alanine Aminotransferase (ALT) 46 U/L (14-59) Alkaline Phosphatase 328 U/L (46-116) H Total Protein 7.7 g/dL (6.4-8.2) Albumin 3.5 g/dL (3.4-5.0) Lipase 124 U/L (73-393) Glucose (Fingerstick) 397 mg/dL (70-99) H Laboratory Tests 04/29/18 22:40 Laboratory Tests 04/29/18 22:40 EKG EKG [] Radiology/Procedures Radiology/Procedures [] Impressions: Hyperglycemia, Dehydration, Nausea/Vomiting, MRSA Course & Med Decision Making Course & Med Decision Making Pertinent Labs and Imaging studies reviewed. (See chart for details) Patient is seen and examined. Her abdominal exam is benign when palpated. There is a wound over the anterior abdominal wall that is healing by secondary intention. The wound has healthy appearing granulation tissue and some serosanguineous drainage but no purulence is noted on the exam. No local erythema. Plan this evening is to check basic labs and make sure the patient does not have an anion gap. Will give IV fluids and medication for symptom control. 03:00: Patient is now status post 2 L normal saline bolus. She continues to have a heart rate of 120. She is noted to have significant pyuria on her lab panel. She also has some anion gap although there are no ketones in her urine. Suspect that she has dehydration over DKA. She was given a total of 15 units of regular insulin in the emergency room which did significantly improve her blood sugar. Given her ongoing tachycardia and poor responsiveness to fluids, the patient will be admitted to the hospital. She is given a dose of Levaquin for UTI in the ER. She is also placed on PO clindamycin for her reported positive MRSA culture on the wound on her abdomen. Vancomycin is a poor option for this patient as she is a very difficult IV stick and currently only has 24 ga IV in the forearm. The patient does not appear toxic on physical exam. Dragon Disclaimer Dragon Disclaimer This electronic medical record was generated, in whole or in part, using a voice recognition dictation system. Departure Departure Referrals: NO PCP (PCP) BALTAZAR JOSEPH DO Apr 29, 2018 22:14
[2018-04-29 22:20] LABS: BACTERIA,URINE MOD /HPF (0-FEW); RBC,URINE TNTC /HPF (0-2); SQUAMOUS EPITHELIAL CELL,UR OCC /LPF; WBC,URINE TNTC /HPF (0-4)
[2018-04-29 22:53] LABS: BASO % 1 % (0-3); EOS # 0.1 x10^3/uL (0.0-0.7); EOS % 1 % (0-3); HEMATOCRIT 33.7 % (36.0-47.0); HEMOGLOBIN 11.3 g/dL (12.0-15.5); LYMPH # 1.5 x10^3/uL (1.0-4.8); LYMPH % 18 % (24-48); MEAN CORPUSCULAR HEMOGLOBIN 27 pg (25-35); MEAN CORPUSCULAR HGB CONC 34 g/dL (31-37); MEAN CORPUSCULAR VOLUME 80 fL (79-100); MONO # 0.5 x10^3/uL (0.0-1.1); MONO % 6 % (0-9); NEUT # 6.3 x10^3uL (1.8-7.7); NEUT % 75 % (31-73); PLATELET COUNT 198 x10^3/uL (140-400); RED BLOOD COUNT 4.24 x10^6/uL (3.50-5.40); RED CELL DISTRIBUTION WIDTH 15.8 % (11.5-14.5); WHITE BLOOD COUNT 8.4 x10^3/uL (4.0-11.0)
[2018-04-29] MEDS ORDERED: HALOPERIDOL LACTATE 5 MG/ML VIAL. IM ONE (23:00)
[2018-04-29] MEDS ORDERED: PROMETHAZINE IM 25 MG/ML VIAL IM ONE (23:00)
[2018-04-29] MEDS ORDERED: diphenhydrAMINE 50 MG/ML VIAL IVP ONE (23:00)
[2018-04-29] MEDS ORDERED: PROCHLORPERAZINE 10 MG/2 ML VIAL. IV ONE (23:00)
[2018-04-29] MEDS ORDERED: MORPHINE SULFATE 4 MG/ML VIAL. IV ONE (23:00)
[2018-04-29] MEDS ORDERED: diphenhydrAMINE 50 MG/ML VIAL IM ONE (23:00)
[2018-04-29 23:08] LABS: ALBUMIN 3.5 g/dL (3.4-5.0); DIRECT BILIRUBIN 0.2 mg/dL (0.0-0.2); GFR 65.6; POTASSIUM 4.1 mmol/L (3.5-5.1); TOTAL BILIRUBIN 0.4 mg/dL (0.2-1.0); TOTAL PROTEIN 7.7 g/dL (6.4-8.2)
[2018-04-29] MEDS ORDERED: INSULIN REGULAR 100 UNIT/ML 3ML VIAL. IV ONE (23:30)
[2018-04-30] MEDS ORDERED: PROCHLORPERAZINE 10 MG/2 ML VIAL. IV ONE (02:00)
[2018-04-30] MEDS ORDERED: diphenhydrAMINE 50 MG/ML VIAL IVP ONE (02:00)
[2018-04-30] MEDS ORDERED: INSULIN REGULAR 100 UNIT/ML 3ML VIAL. IV ONE (02:00)
[2018-04-30] MEDS ORDERED: IV NORMAL SALINE 1000ML BAG 1,000 ML IV ONE (03:00)
[2018-04-30] MEDS ORDERED: MORPHINE SULFATE 4 MG/ML VIAL. IV ONE (03:00)
[2018-04-30] MEDS ORDERED: VANCOMYCIN PER PHARMACY MC PRN (03:15)
[2018-04-30] MEDS ORDERED: ONDANSETRON PF 4 MG/2 ML VIAL. IV PRN (03:15)
[2018-04-30] MEDS ORDERED: VANCOMYCIN 2 GM in IV NORMAL SALINE 500ML BAG 500 ML IV ONE (04:00)
[2018-04-30] MEDS: CLINDAMYCIN HCL 150 MG CAPSULE. PO SCH ×3 (04:05→12:23)
[2018-04-30 04:20] VITALS: BP 145/77
[2018-04-30] MEDS: IV NORMAL SALINE 1000ML BAG 1,000 ML IV SCH ×2 (04:44→11:30)
[2018-04-30] MEDS: MORPHINE SULFATE 4 MG/ML VIAL. IV PRN ×3 (05:22→12:24)
[2018-04-30] MEDS ORDERED: INSULIN LISPRO 300 UNITS/3 ML INSULN.PEN. SQ ONE (06:00)
[2018-04-30 07:46] VITALS: BP 132/78
[2018-04-30 11:00] VITALS: BP 109/72
[2018-04-30] MEDS: INSULIN LISPRO 300 UNITS/3 ML INSULN.PEN. SQ SCH ×2 (12:27→17:00)
[2018-04-30] MEDS: INSULIN GLARGINE 300 UNITS/3 ML INSULN.PEN. SQ SCH ×2 (12:28→21:55)
[2018-04-30] MEDS ORDERED: CIPROFLOXACIN 200MG PREMIX 100 ML IV SCH (12:30)
[2018-04-30] MEDS ORDERED: PROCHLORPERAZINE 10 MG/2 ML VIAL. IM PRN (12:45)
[2018-04-30] MEDS: diazePAM 5 MG TABLET PO PRN ×2 (12:50→21:50)
[2018-04-30 15:00] VITALS: BP 120/81
[2018-04-30] MEDS: HYDROmorphone 2 MG TABLET PO PRN ×2 (15:04→21:50)
--- NOTE | 2018-04-30 16:34 | EKG ---
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
[2018-04-30] MEDS: FERROUS SULFATE 325 MG TABLET. PO SCH (17:19)
[2018-04-30] MEDS: traMADol 50 MG TABLET PO PRN (17:19)
[2018-04-30 19:00] VITALS: BP 116/78
[2018-04-30] MEDS ORDERED: MORPHINE SULFATE 10 MG/ML VIAL. IM ONE (19:45)
[2018-04-30] MEDS ORDERED: MORPHINE SULFATE 4 MG/ML VIAL. IM ONE (19:45)
[2018-04-30] MEDS: LACTOBACILLUS RHAMNOSUS GG 1 CAPSULE. PO SCH (21:50)
[2018-04-30] MEDS: QUEtiapine 100 MG TABLET. PO SCH (21:51)
[2018-04-30 23:00] VITALS: BP 116/75
--- NOTE | 2018-04-30 23:08 | PDOC1 ---
History and Physical History of Present Illness History of Present Illness HPI per ED Patient is a 27 year old female who presents with nausea and vomiting. Patient is known to be a brittle diabetic. She does state she has been compliant with her insulin. She took an extra 10 units today but complains that her blood sugar is still not controlled. The patient did recently have a lipoma removed from the abdomen wall. The wound has been healing by secondary intention. The patient states she was placed on Zyvox because a culture of the wound revealed MRSA. Since starting that medicine 3 days earlier, the patient has had persistent nausea and vomiting. She states she is unable to keep down any food. She does not complain of abdominal pain other than pain at the wound site. No fever or chills. n my exam, pleasent female with recent lipoma remova and subsequrn MRSA infection Started on Clinda in the ED + UA in ED Lipoma scar/wound is open Past Medical History Cardiovascular: HTN Psych: Anxiety Rheumatologic: No pertinent hx Endocrine: Diabetes, Other Past Surgical History Past Surgical History: Appendectomy, Cholecystectomy, , Other Family History Family History: Hypertension, Other Family History: Parent Social History ALCOHOL: none Drugs: None Current Problem List Problem List Problems Medical Problems: (1) UTI (lower urinary tract infection) Status: Acute Current Medications Current Medications Current Medications Medications (Trade) Dose Ordered Sig/Naya Start Time Stop Time Status Last Admin Dose Admin Ciprofloxacin/ Dextrose 200 ml @ 200 mls/hr Q12HR 04/30/18 21:00 Clindamycin HCl (Cleocin) 300 mg QID 04/30/18 04:00 04/30/18 12:47 DC 04/30/18 04:05 300 MG Diazepam (Valium) 5 mg PRN Q6HRS PRN 04/30/18 11:45 04/30/18 21:50 5 MG Diphenhydramine HCl (Benadryl) 25 mg 1X ONCE 04/30/18 02:00 04/30/18 02:01 DC 04/30/18 02:16 25 MG Ferrous Sulfate (Feosol) 325 mg BIDWMEALS 04/30/18 17:00 04/30/18 17:19 325 MG Haloperidol Lactate (Haldol Inj) 5 mg 1X ONCE 04/29/18 23:00 04/29/18 23:00 DC Hydromorphone HCl (Dilaudid) 1 mg PRN Q4HRS PRN 04/30/18 13:00 04/30/18 21:50 1 MG Insulin Glargine (Lantus) 80 units Q12HR 04/30/18 12:00 04/30/18 21:55 80 UNITS Insulin Human Lispro (HumaLOG) 25 units TIDWMEALS 04/30/18 12:00 04/30/18 12:27 25 UNITS Insulin Human Regular (HumuLIN R VIAL) 5 unit 1X ONCE 04/30/18 02:00 04/30/18 02:01 DC 04/30/18 02:18 5 UNIT Lactobacillus Rhamnosus (Culturelle) 1 cap BID 04/30/18 21:00 04/30/18 21:50 1 CAP Levofloxacin/ Dextrose 100 ml @ 100 mls/hr 1X ONCE 04/29/18 23:45 04/30/18 00:44 DC 04/29/18 23:47 100 MLS/HR Linezolid/Dextrose 300 ml @ 300 mls/hr Q12HR 04/30/18 13:30 Lorazepam (Ativan) 1 mg 1X ONCE 04/30/18 02:00 04/30/18 02:01 DC 04/30/18 02:14 1 MG Morphine Sulfate (Morphine Sulfate) 6 mg 1X ONCE 04/30/18 19:45 04/30/18 19:46 DC 04/30/18 19:54 6 MG Ondansetron HCl (Zofran) 4 mg PRN Q8HRS PRN 04/30/18 03:15 04/30/18 12:47 DC Prochlorperazine Edisylate (Compazine) 10 mg PRN Q6HRS PRN 04/30/18 12:45 04/30/18 19:53 10 MG Promethazine HCl (Phenergan Im) 25 mg 1X ONCE 04/29/18 23:00 04/29/18 23:00 DC Quetiapine Fumarate (SEROquel) 100 mg QHS 04/30/18 21:00 04/30/18 21:51 100 MG Sodium Chloride 1,000 ml @ 125 mls/hr Q8H 04/30/18 03:30 05/01/18 03:29 04/30/18 04:44 125 MLS/HR Tramadol HCl (Ultram) 100 mg PRN Q6HRS PRN 04/30/18 13:00 04/30/18 17:19 100 MG Vancomycin HCl (Vanco Per Pharmacy) 1 each PRN DAILY PRN 04/30/18 03:15 04/30/18 03:22 DC Vancomycin HCl 2 gm/Sodium Chloride 500 ml @ 250 mls/hr 1X ONCE 04/30/18 04:00 04/30/18 05:59 Cancel Allergies Allergies Allergies Coded Allergies Type Severity Reaction Last Updated Verified Penicillins Allergy Severe ANAPHYLAXIS, cefepime ok 11/12/16 Yes doxycycline Allergy Intermediate 11/12/16 Yes fentanyl Allergy Intermediate 11/12/16 Yes hydrocodone Adverse Reaction Intermediate itching 11/12/16 Yes ROS Review of System CONSTITUTIONAL: No fever or chills EYES: No recent changes SKIN: No rash or itching CARDIOVASCULAR: No chest pain, syncope, palpitations, or edema RESPIRATORY: No SOB or cough GASTROINTESTINAL: No nausea, vomiting or abdominal pain NEUROLOGICAL: No headaches or weakness ENDOCRINE: No cold or heat intolerance GENITOURINARY: No urgency or frequency of urination MUSCULOSKELETAL: No back pain or joint pain LYMPHATICS: No enlarged lymph nodes PSYCHIATRIC: No anxiety or depression Physical Exam Physical Exam GEN.: No apparent distress. Alert and oriented. HEENT: Head is normocephalic, atraumatic NECK: Supple. LUNGS: Clear to auscultation. HEART: RRR, S1, S2 present. Peripheral pulses intact ABDOMEN: Soft, nontender. Positive bowel sounds. EXTREMITIES: Without any cyanosis. NEUROLOGIC: Normal speech, normal tone PSYCHIATRIC: Normal affect, normal mood. SKIN: No ulcerations Vitals Vitals Vital Signs Date Time Temp Pulse Resp B/P (MAP) Pulse Ox O2 Delivery O2 Flow Rate FiO2 04/30/18 22:50 18 96 Room Air 04/30/18 19:00 98.8 110 116/78 (91) 98.8 Labs Labs Laboratory Tests Test 04/29/18 21:37 04/29/18 22:40 04/30/18 00:33 04/30/18 02:14 Urine Collection Type Unknown Urine Color Yellow Urine Clarity Cloudy Urine pH 6.0 Urine Specific [place] >=1.030 Urine Protein 100 mg/dL (NEG-TRACE) Urine Glucose (UA) >=1000 mg/dL (NEG) Urine Ketones (Stick) Negative mg/dL (NEG) Urine Blood Large (NEG) Urine Nitrite Negative (NEG) Urine Bilirubin Negative (NEG) Urine Urobilinogen Dipstick 0.2 mg/dL (0.2 mg/dL) Urine Leukocyte Esterase Moderate (NEG) Urine RBC Tntc /HPF (0-2) Urine WBC Tntc /HPF (0-4) Urine Squamous Epithelial Cells Occ /LPF Urine Bacteria Mod /HPF (0-FEW) White Blood Count 8.4 x10^3/uL (4.0-11.0) Red Blood Count 4.24 x10^6/uL (3.50-5.40) Hemoglobin 11.3 g/dL (12.0-15.5) Hematocrit 33.7 % (36.0-47.0) Mean Corpuscular Volume 80 fL (79-100) Mean Corpuscular Hemoglobin 27 pg (25-35) Mean Corpuscular Hemoglobin Concent 34 g/dL (31-37) Red Cell Distribution Width 15.8 % (11.5-14.5) Platelet Count 198 x10^3/uL (140-400) Neutrophils (%) (Auto) 75 % (31-73) Lymphocytes (%) (Auto) 18 % (24-48) Monocytes (%) (Auto) 6 % (0-9) Eosinophils (%) (Auto) 1 % (0-3) Basophils (%) (Auto) 1 % (0-3) Neutrophils # (Auto) 6.3 x10^3uL (1.8-7.7) Lymphocytes # (Auto) 1.5 x10^3/uL (1.0-4.8) Monocytes # (Auto) 0.5 x10^3/uL (0.0-1.1) Eosinophils # (Auto) 0.1 x10^3/uL (0.0-0.7) Basophils # (Auto) 0.0 x10^3/uL (0.0-0.2) Sodium Level 126 mmol/L (136-145) Potassium Level 4.1 mmol/L (3.5-5.1) Chloride Level 89 mmol/L (98-107) Carbon Dioxide Level 20 mmol/L (21-32) Anion Gap 17 (6-14) Blood Urea Nitrogen 7 mg/dL (7-20) Creatinine 1.0 mg/dL (0.6-1.0) Estimated GFR (Cockcroft-Gault) 65.6 Glucose Level 686 mg/dL (70-99) Calcium Level 9.0 mg/dL (8.5-10.1) Total Bilirubin 0.4 mg/dL (0.2-1.0) Direct Bilirubin 0.2 mg/dL (0.0-0.2) Aspartate Amino Transf (AST/SGOT) 25 U/L (15-37) Alanine Aminotransferase (ALT/SGPT) 46 U/L (14-59) Alkaline Phosphatase 328 U/L (46-116) Total Protein 7.7 g/dL (6.4-8.2) Albumin 3.5 g/dL (3.4-5.0) Lipase 124 U/L (73-393) Glucose (Fingerstick) 397 mg/dL (70-99) 449 mg/dL (70-99) Test 04/30/18 03:06 04/30/18 04:32 04/30/18 07:03 04/30/18 10:44 Glucose (Fingerstick) 374 mg/dL (70-99) 408 mg/dL (70-99) 285 mg/dL (70-99) 284 mg/dL (70-99) Test 04/30/18 16:55 04/30/18 20:33 Glucose (Fingerstick) 120 mg/dL (70-99) 142 mg/dL (70-99) Laboratory Tests Test 04/30/18 00:33 04/30/18 02:14 04/30/18 03:06 04/30/18 04:32 Glucose (Fingerstick) 397 mg/dL (70-99) 449 mg/dL (70-99) 374 mg/dL (70-99) 408 mg/dL (70-99) Test 04/30/18 07:03 04/30/18 10:44 04/30/18 16:55 04/30/18 20:33 Glucose (Fingerstick) 285 mg/dL (70-99) 284 mg/dL (70-99) 120 mg/dL (70-99) 142 mg/dL (70-99) VTE Prophylaxis Ordered VTE Prophylaxis Devices: No VTE Pharmacological Prophylaxi: Yes Assessment/Plan Assessment/Plan resume home insulin dc clinda as we are ?'ing c-diff c-diff testing Linezolid ( was on this at home but was not able to keep it down) to be resumed She will need MRSA decolonization upon dc: bactroban nasally, doxycycline ( or equivalent for 14 dyas given her allergies), and hibacleanse bath BID for 2 weeks. AIDA CEDENO MD Apr 30, 2018 23:08
[2018-05-01] MEDS: CIPROFLOXACIN 400MG PREMIX 200 ML IV SCH ×2 (00:15→10:25)
[2018-05-01] MEDS: IV NORMAL SALINE 1000ML BAG 1,000 ML IV SCH (00:15)
[2018-05-01] MEDS: MORPHINE SULFATE 4 MG/ML VIAL. IV PRN ×2 (00:19→02:19)
[2018-05-01] MEDS: traMADol 50 MG TABLET PO PRN ×4 (00:19→20:01)
[2018-05-01] MEDS: HYDROmorphone 2 MG TABLET PO PRN ×4 (02:57→20:00)
[2018-05-01 03:00] VITALS: BP 115/76
[2018-05-01] MEDS ORDERED: PROCHLORPERAZINE 10 MG/2 ML VIAL. IV PRN (04:00)
[2018-05-01] MEDS: diazePAM 5 MG TABLET PO PRN ×3 (04:01→20:00)
[2018-05-01 06:13] LABS: BASO % 1 % (0-3); EOS # 0.1 x10^3/uL (0.0-0.7); EOS % 3 % (0-3); HEMATOCRIT 32.1 % (36.0-47.0); HEMOGLOBIN 10.8 g/dL (12.0-15.5); LYMPH # 1.3 x10^3/uL (1.0-4.8); LYMPH % 32 % (24-48); MEAN CORPUSCULAR HEMOGLOBIN 26 pg (25-35); MEAN CORPUSCULAR HGB CONC 34 g/dL (31-37); MEAN CORPUSCULAR VOLUME 78 fL (79-100); MONO # 0.3 x10^3/uL (0.0-1.1); MONO % 7 % (0-9); NEUT # 2.3 x10^3uL (1.8-7.7); NEUT % 57 % (31-73); PLATELET COUNT 202 x10^3/uL (140-400); RED BLOOD COUNT 4.09 x10^6/uL (3.50-5.40); RED CELL DISTRIBUTION WIDTH 15.7 % (11.5-14.5); WHITE BLOOD COUNT 4.1 x10^3/uL (4.0-11.0)
[2018-05-01 06:20] LABS: CALCIUM 8.9 mg/dL (8.5-10.1); CREATININE 0.6 mg/dL (0.6-1.0); GFR 118.2; POTASSIUM 3.4 mmol/L (3.5-5.1)
[2018-05-01 07:00] VITALS: BP 116/76
[2018-05-01] MEDS: FERROUS SULFATE 325 MG TABLET. PO SCH ×2 (09:48→18:20)
[2018-05-01] MEDS: LACTOBACILLUS RHAMNOSUS GG 1 CAPSULE. PO SCH ×2 (09:49→20:00)
[2018-05-01] MEDS: INSULIN LISPRO 300 UNITS/3 ML INSULN.PEN. SQ SCH ×3 (09:58→18:24)
[2018-05-01] MEDS: INSULIN GLARGINE 300 UNITS/3 ML INSULN.PEN. SQ SCH ×2 (09:59→20:15)
[2018-05-01 11:00] VITALS: BP 121/76
[2018-05-01] MEDS ORDERED: POTASSIUM CHLORIDE 20 MEQ TABLET.ER. PO ONE (12:00)
[2018-05-01 15:00] VITALS: BP 111/62
[2018-05-01 19:00] VITALS: BP 120/79
[2018-05-01] MEDS: CIPROFLOXACIN HCL 250 MG TABLET. PO SCH (20:00)
[2018-05-01] MEDS: LINEZOLID 600 MG TABLET PO SCH (20:00)
[2018-05-01] MEDS: QUEtiapine 100 MG TABLET. PO SCH (20:00)
[2018-05-01 23:00] VITALS: BP 145/73
[2018-05-01] MEDS ORDERED: PROCHLORPERAZINE 5 MG TABLET. PO PRN (23:00)
--- NOTE | 2018-05-01 23:56 | PDOC ---
PROGRESS NOTES History of Present Illness History of Present Illness Impression: UTI Abdominal infection s/p lipoma removal MRSA infection of abdominal infection DM type 1 Loose stool Plan: home insulin C-diff testing Cipro for + UA Linezolid ( was on this at home but was not able to keep it down) to be resumed ( for abdominal infection) She will need MRSA decolonization upon dc: bactroban nasally, doxycycline ( or equivalent for 14 dyas given her allergies), and hibacleanse bath BID for 2 weeks. Vitals Vitals Vital Signs Date Time Temp Pulse Resp B/P (MAP) Pulse Ox O2 Delivery O2 Flow Rate FiO2 05/01/18 21:00 18 97 Room Air 05/01/18 19:00 98.9 111 120/79 (93) 98.9 Physical Exam Lungs: Clear Labs LABS Laboratory Tests Test 05/01/18 05:05 05/01/18 08:40 05/01/18 11:33 05/01/18 17:12 White Blood Count 4.1 x10^3/uL (4.0-11.0) Red Blood Count 4.09 x10^6/uL (3.50-5.40) Hemoglobin 10.8 g/dL (12.0-15.5) Hematocrit 32.1 % (36.0-47.0) Mean Corpuscular Volume 78 fL (79-100) Mean Corpuscular Hemoglobin 26 pg (25-35) Mean Corpuscular Hemoglobin Concent 34 g/dL (31-37) Red Cell Distribution Width 15.7 % (11.5-14.5) Platelet Count 202 x10^3/uL (140-400) Neutrophils (%) (Auto) 57 % (31-73) Lymphocytes (%) (Auto) 32 % (24-48) Monocytes (%) (Auto) 7 % (0-9) Eosinophils (%) (Auto) 3 % (0-3) Basophils (%) (Auto) 1 % (0-3) Neutrophils # (Auto) 2.3 x10^3uL (1.8-7.7) Lymphocytes # (Auto) 1.3 x10^3/uL (1.0-4.8) Monocytes # (Auto) 0.3 x10^3/uL (0.0-1.1) Eosinophils # (Auto) 0.1 x10^3/uL (0.0-0.7) Basophils # (Auto) 0.0 x10^3/uL (0.0-0.2) Sodium Level 138 mmol/L (136-145) Potassium Level 3.4 mmol/L (3.5-5.1) Chloride Level 102 mmol/L (98-107) Carbon Dioxide Level 25 mmol/L (21-32) Anion Gap 11 (6-14) Blood Urea Nitrogen 5 mg/dL (7-20) Creatinine 0.6 mg/dL (0.6-1.0) Estimated GFR (Cockcroft-Gault) 118.2 Glucose Level 245 mg/dL (70-99) Calcium Level 8.9 mg/dL (8.5-10.1) Glucose (Fingerstick) 322 mg/dL (70-99) 170 mg/dL (70-99) 115 mg/dL (70-99) Test 05/01/18 20:09 Glucose (Fingerstick) 96 mg/dL (70-99) Assessment and Plan Assessmemt and Plan Problems Medical Problems: (1) UTI (lower urinary tract infection) Status: Acute Comment Review of Relevant I have reviewed the following items lizbeth (where applicable) has been applied. Labs Laboratory Tests Test 04/30/18 00:33 04/30/18 02:14 04/30/18 03:06 04/30/18 04:32 Glucose (Fingerstick) 397 mg/dL (70-99) 449 mg/dL (70-99) 374 mg/dL (70-99) 408 mg/dL (70-99) Test 04/30/18 07:03 04/30/18 10:44 04/30/18 16:55 04/30/18 20:33 Glucose (Fingerstick) 285 mg/dL (70-99) 284 mg/dL (70-99) 120 mg/dL (70-99) 142 mg/dL (70-99) Test 05/01/18 05:05 05/01/18 08:40 05/01/18 11:33 05/01/18 17:12 White Blood Count 4.1 x10^3/uL (4.0-11.0) Red Blood Count 4.09 x10^6/uL (3.50-5.40) Hemoglobin 10.8 g/dL (12.0-15.5) Hematocrit 32.1 % (36.0-47.0) Mean Corpuscular Volume 78 fL (79-100) Mean Corpuscular Hemoglobin 26 pg (25-35) Mean Corpuscular Hemoglobin Concent 34 g/dL (31-37) Red Cell Distribution Width 15.7 % (11.5-14.5) Platelet Count 202 x10^3/uL (140-400) Neutrophils (%) (Auto) 57 % (31-73) Lymphocytes (%) (Auto) 32 % (24-48) Monocytes (%) (Auto) 7 % (0-9) Eosinophils (%) (Auto) 3 % (0-3) Basophils (%) (Auto) 1 % (0-3) Neutrophils # (Auto) 2.3 x10^3uL (1.8-7.7) Lymphocytes # (Auto) 1.3 x10^3/uL (1.0-4.8) Monocytes # (Auto) 0.3 x10^3/uL (0.0-1.1) Eosinophils # (Auto) 0.1 x10^3/uL (0.0-0.7) Basophils # (Auto) 0.0 x10^3/uL (0.0-0.2) Sodium Level 138 mmol/L (136-145) Potassium Level 3.4 mmol/L (3.5-5.1) Chloride Level 102 mmol/L (98-107) Carbon Dioxide Level 25 mmol/L (21-32) Anion Gap 11 (6-14) Blood Urea Nitrogen 5 mg/dL (7-20) Creatinine 0.6 mg/dL (0.6-1.0) Estimated GFR (Cockcroft-Gault) 118.2 Glucose Level 245 mg/dL (70-99) Calcium Level 8.9 mg/dL (8.5-10.1) Glucose (Fingerstick) 322 mg/dL (70-99) 170 mg/dL (70-99) 115 mg/dL (70-99) Test 05/01/18 20:09 Glucose (Fingerstick) 96 mg/dL (70-99) Laboratory Tests Test 05/01/18 05:05 05/01/18 08:40 05/01/18 11:33 05/01/18 17:12 White Blood Count 4.1 x10^3/uL (4.0-11.0) Red Blood Count 4.09 x10^6/uL (3.50-5.40) Hemoglobin 10.8 g/dL (12.0-15.5) Hematocrit 32.1 % (36.0-47.0) Mean Corpuscular Volume 78 fL (79-100) Mean Corpuscular Hemoglobin 26 pg (25-35) Mean Corpuscular Hemoglobin Concent 34 g/dL (31-37) Red Cell Distribution Width 15.7 % (11.5-14.5) Platelet Count 202 x10^3/uL (140-400) Neutrophils (%) (Auto) 57 % (31-73) Lymphocytes (%) (Auto) 32 % (24-48) Monocytes (%) (Auto) 7 % (0-9) Eosinophils (%) (Auto) 3 % (0-3) Basophils (%) (Auto) 1 % (0-3) Neutrophils # (Auto) 2.3 x10^3uL (1.8-7.7) Lymphocytes # (Auto) 1.3 x10^3/uL (1.0-4.8) Monocytes # (Auto) 0.3 x10^3/uL (0.0-1.1) Eosinophils # (Auto) 0.1 x10^3/uL (0.0-0.7) Basophils # (Auto) 0.0 x10^3/uL (0.0-0.2) Sodium Level 138 mmol/L (136-145) Potassium Level 3.4 mmol/L (3.5-5.1) Chloride Level 102 mmol/L (98-107) Carbon Dioxide Level 25 mmol/L (21-32) Anion Gap 11 (6-14) Blood Urea Nitrogen 5 mg/dL (7-20) Creatinine 0.6 mg/dL (0.6-1.0) Estimated GFR (Cockcroft-Gault) 118.2 Glucose Level 245 mg/dL (70-99) Calcium Level 8.9 mg/dL (8.5-10.1) Glucose (Fingerstick) 322 mg/dL (70-99) 170 mg/dL (70-99) 115 mg/dL (70-99) Test 05/01/18 20:09 Glucose (Fingerstick) 96 mg/dL (70-99) Medications Current Medications Sodium Chloride 1,000 ml @ 1,000 mls/hr 1X ONCE IV Last administered on at 23:10; Start 04/29/18 at 22:00; Stop 04/29/18 at 22:59; Status DC Promethazine HCl (Phenergan Im) 25 mg 1X ONCE IM ; Start 04/29/18 at 23:00; Stop 04/29/18 at 23:00; Status DC Diphenhydramine HCl (Benadryl) 25 mg 1X ONCE IM ; Start 04/29/18 at 23:00; Stop 04/29/18 at 23:00; Status DC Haloperidol Lactate (Haldol Inj) 5 mg 1X ONCE IM ; Start 04/29/18 at 23:00; Stop 04/29/18 at 23:00; Status DC Morphine Sulfate (Morphine Sulfate) 6 mg 1X ONCE IV Last administered on at 23:22; Start 04/29/18 at 23:00; Stop 04/29/18 at 23:01; Status DC Prochlorperazine Edisylate (Compazine) 10 mg 1X ONCE IV Last administered on at 23:11; Start 04/29/18 at 23:00; Stop 04/29/18 at 23:01; Status DC Diphenhydramine HCl (Benadryl) 25 mg 1X ONCE IVP Last administered on at 23:11; Start 04/29/18 at 23:00; Stop 04/29/18 at 23:01; Status DC Sodium Chloride 1,000 ml @ 1,000 mls/hr 1X ONCE IV Last administered on at 23:16; Start 04/29/18 at 23:00; Stop 04/29/18 at 23:59; Status DC Insulin Human Regular (HumuLIN R VIAL) 10 unit 1X ONCE IV Last administered on 04/29/18at 23:48; Start 04/29/18 at 23:30; Stop 04/29/18 at 23:31; Status DC Levofloxacin/ Dextrose 100 ml @ 100 mls/hr 1X ONCE IV Last administered on at 23:47; Start 04/29/18 at 23:45; Stop 04/30/18 at 00:44; Status DC Lorazepam (Ativan) 1 mg 1X ONCE IV Last administered on 04/30/18at 02:14; Start 04/30/18 at 02:00; Stop 04/30/18 at 02:01; Status DC Prochlorperazine Edisylate (Compazine) 10 mg 1X ONCE IV Last administered on at 02:16; Start 04/30/18 at 02:00; Stop 04/30/18 at 02:01; Status DC Diphenhydramine HCl (Benadryl) 25 mg 1X ONCE IVP Last administered on at 02:16; Start 04/30/18 at 02:00; Stop 04/30/18 at 02:01; Status DC Insulin Human Regular (HumuLIN R VIAL) 5 unit 1X ONCE IV Last administered on 04/30/18at 02:18; Start 04/30/18 at 02:00; Stop 04/30/18 at 02:01; Status DC Sodium Chloride 1,000 ml @ 1,000 mls/hr 1X ONCE IV Last administered on at 02:41; Start 04/30/18 at 03:00; Stop 04/30/18 at 03:59; Status DC Morphine Sulfate (Morphine Sulfate) 8 mg 1X ONCE IV Last administered on at 02:41; Start 04/30/18 at 03:00; Stop 04/30/18 at 03:01; Status DC Ondansetron HCl (Zofran) 4 mg PRN Q8HRS PRN IV NAUSEA/VOMITING 1ST CHOICE; Start 04/30/18 at 03:15; Stop 04/30/18 at 12:47; Status DC Morphine Sulfate (Morphine Sulfate) 6 mg PRN Q2HR PRN IV SEVERE PAIN Last administered on 05/01/18at 02:19; Start 04/30/18 at 03:15; Stop 05/01/18 at 03:14 ; Status DC Sodium Chloride 1,000 ml @ 125 mls/hr Q8H IV Last administered on 05/01/18at 00 :15; Start 04/30/18 at 03:30; Stop 05/01/18 at 03:29; Status DC Vancomycin HCl (Vanco Per Pharmacy) 1 each PRN DAILY PRN [facility] SEE COMMENTS; Start 04/30/18 at 03:15; Stop 04/30/18 at 03:22; Status DC Vancomycin HCl 2 gm/Sodium Chloride 500 ml @ 250 mls/hr 1X ONCE IV ; Start at 04:00; Stop 04/30/18 at 05:59; Status Cancel Clindamycin HCl (Cleocin) 300 mg QID PO Last administered on 04/30/18at 04:05; Start 04/30/18 at 04:00; Stop 04/30/18 at 12:47; Status DC Insulin Human Lispro (HumaLOG) 20 units 1X ONCE SQ Last administered on at 06:02; Start 04/30/18 at 06:00; Stop 04/30/18 at 06:01; Status DC Diazepam (Valium) 5 mg PRN Q6HRS PRN PO ANXIETY Last administered on 05/01/18at 20:00; Start 04/30/18 at 11:45 Ferrous Sulfate (Feosol) 325 mg BIDWMEALS PO Last administered on 05/01/18at 18: 20; Start 04/30/18 at 17:00 Insulin Glargine (Lantus) 80 units Q12HR SQ Last administered on 05/01/18at 20: 15; Start 04/30/18 at 12:00 Insulin Human Lispro (HumaLOG) 25 units TIDWMEALS SQ Last administered on at 18:24; Start 04/30/18 at 12:00 Quetiapine Fumarate (SEROquel) 100 mg QHS PO Last administered on 05/01/18at 20: 00; Start 04/30/18 at 21:00 Ciprofloxacin/ Dextrose 100 ml @ 100 mls/hr Q12HR IV Last administered on 04/30at 12:22; Start 04/30/18 at 12:30; Stop 04/30/18 at 12:47; Status DC Lactobacillus Rhamnosus (Culturelle) 1 cap BID PO Last administered on at 20:00; Start 04/30/18 at 21:00 Ciprofloxacin/ Dextrose 200 ml @ 200 mls/hr Q12HR IV Last administered on 05/01at 10:25; Start 04/30/18 at 21:00; Stop 05/01/18 at 11:42; Status DC Linezolid/Dextrose 300 ml @ 300 mls/hr Q12HR IV Last administered on at 10:26; Start 04/30/18 at 13:30; Stop 05/01/18 at 11:42; Status DC Prochlorperazine Edisylate (Compazine) 10 mg PRN Q6HRS PRN IM NAUSEA/VOMITING Last administered on 04/30/18at 19:53; Start 04/30/18 at 12:45; Stop 05/01/18 at 03:58; Status DC Tramadol HCl (Ultram) 100 mg PRN Q6HRS PRN PO MILD PAIN Last administered on at 20:01; Start 04/30/18 at 13:00 Hydromorphone HCl (Dilaudid) 1 mg PRN Q4HRS PRN PO MODERATE-SEVERE PAIN Last administered on 05/01/18at 20:00; Start 04/30/18 at 13:00 Morphine Sulfate (Morphine Sulfate) 6 mg 1X ONCE IM ; Start 04/30/18 at 19:45; Stop 04/30/18 at 19:46; Status Cancel Morphine Sulfate (Morphine Sulfate) 6 mg 1X ONCE IM Last administered on at 19:54; Start 04/30/18 at 19:45; Stop 04/30/18 at 19:46; Status DC Prochlorperazine Edisylate (Compazine) 10 mg PRN Q6HRS PRN IV NAUSEA/VOMITING 1ST CHOICE; Start 05/01/18 at 04:00 Ciprofloxacin (Cipro) 500 mg BID PO Last administered on 05/01/18at 20:00; Start 05/01/18 at 21:00 Linezolid (Zyvox) 600 mg BID PO Last administered on 05/01/18at 20:00; Start at 21:00 Potassium Chloride (Klor-Con) 40 meq 1X ONCE PO Last administered on at 15:26; Start 05/01/18 at 12:00; Stop 05/01/18 at 12:01; Status DC Prochlorperazine Maleate (Compazine) 10 mg PRN Q6HRS PRN PO NAUSEA/VOMITING 1ST CHOICE PO; Start 05/01/18 at 23:00 Active Scripts Active Reported Diazepam 5 Mg Tablet 5 Mg PO PRN Q6HRS PRN Seroquel (Quetiapine Fumarate) 100 Mg Tablet 1 Tab PO QHS Ferrous Sulfate 325 Mg Tablet 325 Mg PO BID Humalog (Insulin Lispro) 100 Unit/1 Ml Cartridge 25 Unit SQ TIDWMEALS Lantus Solostar (Insulin Glargine,Hum.rec.anlog) 100 Unit/1 Ml Insuln.pen 80 Unit SQ Q12HR Vitals/I & O Vital Sign - Last 24 Hours 05/01/18 05/01/18 05/01/18 05/01/18 00:19 00:19 02:19 02:49 Resp 18 18 18 18 Pulse Ox 96 96 96 96 O2 Delivery Room Air Room Air Room Air Room Air 05/01/18 05/01/18 05/01/18 05/01/18 02:57 03:00 07:00 09:47 Temp 98.1 98.3 98.1 98.3 Pulse 96 112 Resp 18 18 18 16 B/P (MAP) 115/76 (89) 116/76 (89) Pulse Ox 96 96 94 O2 Delivery Room Air Room Air Room Air Room Air 05/01/18 05/01/18 05/01/18 05/01/18 09:48 11:00 15:00 15:27 Temp 98.1 98.1 98.1 98.1 Pulse 107 100 Resp 16 18 18 16 B/P (MAP) 121/76 (91) 111/62 (78) Pulse Ox 97 97 O2 Delivery Room Air Room Air Room Air 05/01/18 05/01/18 05/01/18 05/01/18 15:28 19:00 20:00 20:00 Temp 98.9 98.9 Pulse 111 Resp 18 18 B/P (MAP) 120/79 (93) Pulse Ox 97 97 O2 Delivery Room Air Room Air Room Air 05/01/18 05/01/18 05/01/18 20:01 21:00 21:00 Resp 18 18 18 Pulse Ox 97 97 97 O2 Delivery Room Air Room Air Room Air Intake and Output 04/30/18 04/30/18 05/01/18 15:00 23:00 07:00 Intake Total 200 ml 2460 ml Balance 200 ml 2460 ml AIDA CEDENO MD May 01, 2018 23:56
[2018-05-02] MEDS: HYDROmorphone 2 MG TABLET PO PRN ×6 (00:01→22:56)
[2018-05-02] MEDS: diazePAM 5 MG TABLET PO PRN ×5 (00:01→22:57)
[2018-05-02 03:00] VITALS: BP 111/68
[2018-05-02] MEDS: traMADol 50 MG TABLET PO PRN ×3 (05:15→18:33)
[2018-05-02 07:00] VITALS: BP 113/63
[2018-05-02] MEDS: CIPROFLOXACIN HCL 250 MG TABLET. PO SCH ×2 (09:00→21:15)
[2018-05-02] MEDS: LACTOBACILLUS RHAMNOSUS GG 1 CAPSULE. PO SCH ×2 (09:01→21:14)
[2018-05-02] MEDS: FERROUS SULFATE 325 MG TABLET. PO SCH ×2 (09:01→17:03)
[2018-05-02] MEDS: LINEZOLID 600 MG TABLET PO SCH ×2 (09:01→21:15)
[2018-05-02] MEDS: INSULIN LISPRO 300 UNITS/3 ML INSULN.PEN. SQ SCH ×3 (09:20→17:09)
[2018-05-02] MEDS: INSULIN GLARGINE 300 UNITS/3 ML INSULN.PEN. SQ SCH ×2 (09:31→21:18)
[2018-05-02 11:00] VITALS: BP 114/65
--- NOTE | 2018-05-02 11:11 | PDOC ---
PROGRESS NOTES Chief Complaint Chief Complaint acute abd pain Dm1 with obesity, BMI 35 MRSA, mult prior infections, Abdominal infection s/p lipoma removal UTI Loose stool History of Present Illness History of Present Illness home insulin C-diff testing Cipro for + UA Linezolid ( was on this at home but was not able to keep it down) to be resumed ( for abdominal infection) PLAN fro DC bactroban nasally, Zyvox, and hibacleanse bath BID for 2 weeks. Vitals Vitals Vital Signs Date Time Temp Pulse Resp B/P (MAP) Pulse Ox O2 Delivery O2 Flow Rate FiO2 05/02/18 10:56 Room Air 05/02/18 09:12 90 05/02/18 07:00 97.9 95 18 113/63 (80) 97.9 Physical Exam Lungs: Clear Labs LABS Laboratory Tests Test 05/01/18 11:33 05/01/18 17:12 05/01/18 20:09 05/02/18 08:11 Glucose (Fingerstick) 170 mg/dL (70-99) 115 mg/dL (70-99) 96 mg/dL (70-99) 166 mg/dL (70-99) Test 05/02/18 10:36 Glucose (Fingerstick) 114 mg/dL (70-99) Assessment and Plan Assessmemt and Plan Problems Medical Problems: (1) UTI (lower urinary tract infection) Status: Acute Comment Review of Relevant I have reviewed the following items lizbeth (where applicable) has been applied. Labs Laboratory Tests Test 04/30/18 16:55 04/30/18 20:33 05/01/18 05:05 05/01/18 08:40 Glucose (Fingerstick) 120 mg/dL (70-99) 142 mg/dL (70-99) 322 mg/dL (70-99) White Blood Count 4.1 x10^3/uL (4.0-11.0) Red Blood Count 4.09 x10^6/uL (3.50-5.40) Hemoglobin 10.8 g/dL (12.0-15.5) Hematocrit 32.1 % (36.0-47.0) Mean Corpuscular Volume 78 fL (79-100) Mean Corpuscular Hemoglobin 26 pg (25-35) Mean Corpuscular Hemoglobin Concent 34 g/dL (31-37) Red Cell Distribution Width 15.7 % (11.5-14.5) Platelet Count 202 x10^3/uL (140-400) Neutrophils (%) (Auto) 57 % (31-73) Lymphocytes (%) (Auto) 32 % (24-48) Monocytes (%) (Auto) 7 % (0-9) Eosinophils (%) (Auto) 3 % (0-3) Basophils (%) (Auto) 1 % (0-3) Neutrophils # (Auto) 2.3 x10^3uL (1.8-7.7) Lymphocytes # (Auto) 1.3 x10^3/uL (1.0-4.8) Monocytes # (Auto) 0.3 x10^3/uL (0.0-1.1) Eosinophils # (Auto) 0.1 x10^3/uL (0.0-0.7) Basophils # (Auto) 0.0 x10^3/uL (0.0-0.2) Sodium Level 138 mmol/L (136-145) Potassium Level 3.4 mmol/L (3.5-5.1) Chloride Level 102 mmol/L (98-107) Carbon Dioxide Level 25 mmol/L (21-32) Anion Gap 11 (6-14) Blood Urea Nitrogen 5 mg/dL (7-20) Creatinine 0.6 mg/dL (0.6-1.0) Estimated GFR (Cockcroft-Gault) 118.2 Glucose Level 245 mg/dL (70-99) Calcium Level 8.9 mg/dL (8.5-10.1) Test 05/01/18 11:33 05/01/18 17:12 05/01/18 20:09 05/02/18 08:11 Glucose (Fingerstick) 170 mg/dL (70-99) 115 mg/dL (70-99) 96 mg/dL (70-99) 166 mg/dL (70-99) Test 05/02/18 10:36 Glucose (Fingerstick) 114 mg/dL (70-99) Laboratory Tests Test 05/01/18 11:33 05/01/18 17:12 05/01/18 20:09 05/02/18 08:11 Glucose (Fingerstick) 170 mg/dL (70-99) 115 mg/dL (70-99) 96 mg/dL (70-99) 166 mg/dL (70-99) Test 05/02/18 10:36 Glucose (Fingerstick) 114 mg/dL (70-99) Medications Current Medications Sodium Chloride 1,000 ml @ 1,000 mls/hr 1X ONCE IV Last administered on at 23:10; Start 04/29/18 at 22:00; Stop 04/29/18 at 22:59; Status DC Promethazine HCl (Phenergan Im) 25 mg 1X ONCE IM ; Start 04/29/18 at 23:00; Stop 04/29/18 at 23:00; Status DC Diphenhydramine HCl (Benadryl) 25 mg 1X ONCE IM ; Start 04/29/18 at 23:00; Stop 04/29/18 at 23:00; Status DC Haloperidol Lactate (Haldol Inj) 5 mg 1X ONCE IM ; Start 04/29/18 at 23:00; Stop 04/29/18 at 23:00; Status DC Morphine Sulfate (Morphine Sulfate) 6 mg 1X ONCE IV Last administered on at 23:22; Start 04/29/18 at 23:00; Stop 04/29/18 at 23:01; Status DC Prochlorperazine Edisylate (Compazine) 10 mg 1X ONCE IV Last administered on at 23:11; Start 04/29/18 at 23:00; Stop 04/29/18 at 23:01; Status DC Diphenhydramine HCl (Benadryl) 25 mg 1X ONCE IVP Last administered on at 23:11; Start 04/29/18 at 23:00; Stop 04/29/18 at 23:01; Status DC Sodium Chloride 1,000 ml @ 1,000 mls/hr 1X ONCE IV Last administered on at 23:16; Start 04/29/18 at 23:00; Stop 04/29/18 at 23:59; Status DC Insulin Human Regular (HumuLIN R VIAL) 10 unit 1X ONCE IV Last administered on 04/29/18at 23:48; Start 04/29/18 at 23:30; Stop 04/29/18 at 23:31; Status DC Levofloxacin/ Dextrose 100 ml @ 100 mls/hr 1X ONCE IV Last administered on at 23:47; Start 04/29/18 at 23:45; Stop 04/30/18 at 00:44; Status DC Lorazepam (Ativan) 1 mg 1X ONCE IV Last administered on 04/30/18at 02:14; Start 04/30/18 at 02:00; Stop 04/30/18 at 02:01; Status DC Prochlorperazine Edisylate (Compazine) 10 mg 1X ONCE IV Last administered on at 02:16; Start 04/30/18 at 02:00; Stop 04/30/18 at 02:01; Status DC Diphenhydramine HCl (Benadryl) 25 mg 1X ONCE IVP Last administered on at 02:16; Start 04/30/18 at 02:00; Stop 04/30/18 at 02:01; Status DC Insulin Human Regular (HumuLIN R VIAL) 5 unit 1X ONCE IV Last administered on 04/30/18at 02:18; Start 04/30/18 at 02:00; Stop 04/30/18 at 02:01; Status DC Sodium Chloride 1,000 ml @ 1,000 mls/hr 1X ONCE IV Last administered on at 02:41; Start 04/30/18 at 03:00; Stop 04/30/18 at 03:59; Status DC Morphine Sulfate (Morphine Sulfate) 8 mg 1X ONCE IV Last administered on at 02:41; Start 04/30/18 at 03:00; Stop 04/30/18 at 03:01; Status DC Ondansetron HCl (Zofran) 4 mg PRN Q8HRS PRN IV NAUSEA/VOMITING 1ST CHOICE; Start 04/30/18 at 03:15; Stop 04/30/18 at 12:47; Status DC Morphine Sulfate (Morphine Sulfate) 6 mg PRN Q2HR PRN IV SEVERE PAIN Last administered on 05/01/18at 02:19; Start 04/30/18 at 03:15; Stop 05/01/18 at 03:14 ; Status DC Sodium Chloride 1,000 ml @ 125 mls/hr Q8H IV Last administered on 05/01/18at 00 :15; Start 04/30/18 at 03:30; Stop 05/01/18 at 03:29; Status DC Vancomycin HCl (Vanco Per Pharmacy) 1 each PRN DAILY PRN [facility] SEE COMMENTS; Start 04/30/18 at 03:15; Stop 04/30/18 at 03:22; Status DC Vancomycin HCl 2 gm/Sodium Chloride 500 ml @ 250 mls/hr 1X ONCE IV ; Start at 04:00; Stop 04/30/18 at 05:59; Status Cancel Clindamycin HCl (Cleocin) 300 mg QID PO Last administered on 04/30/18at 04:05; Start 04/30/18 at 04:00; Stop 04/30/18 at 12:47; Status DC Insulin Human Lispro (HumaLOG) 20 units 1X ONCE SQ Last administered on at 06:02; Start 04/30/18 at 06:00; Stop 04/30/18 at 06:01; Status DC Diazepam (Valium) 5 mg PRN Q6HRS PRN PO ANXIETY Last administered on 05/02/18at 05:15; Start 04/30/18 at 11:45 Ferrous Sulfate (Feosol) 325 mg BIDWMEALS PO Last administered on 05/02/18at 09: 01; Start 04/30/18 at 17:00 Insulin Glargine (Lantus) 80 units Q12HR SQ Last administered on 05/02/18at 09: 31; Start 04/30/18 at 12:00 Insulin Human Lispro (HumaLOG) 25 units TIDWMEALS SQ Last administered on at 09:20; Start 04/30/18 at 12:00 Quetiapine Fumarate (SEROquel) 100 mg QHS PO Last administered on 05/01/18at 20: 00; Start 04/30/18 at 21:00 Ciprofloxacin/ Dextrose 100 ml @ 100 mls/hr Q12HR IV Last administered on 04/30at 12:22; Start 04/30/18 at 12:30; Stop 04/30/18 at 12:47; Status DC Lactobacillus Rhamnosus (Culturelle) 1 cap BID PO Last administered on at 09:01; Start 04/30/18 at 21:00 Ciprofloxacin/ Dextrose 200 ml @ 200 mls/hr Q12HR IV Last administered on 05/01at 10:25; Start 04/30/18 at 21:00; Stop 05/01/18 at 11:42; Status DC Linezolid/Dextrose 300 ml @ 300 mls/hr Q12HR IV Last administered on at 10:26; Start 04/30/18 at 13:30; Stop 05/01/18 at 11:42; Status DC Prochlorperazine Edisylate (Compazine) 10 mg PRN Q6HRS PRN IM NAUSEA/VOMITING Last administered on 04/30/18at 19:53; Start 04/30/18 at 12:45; Stop 05/01/18 at 03:58; Status DC Tramadol HCl (Ultram) 100 mg PRN Q6HRS PRN PO MILD PAIN Last administered on at 05:15; Start 04/30/18 at 13:00 Hydromorphone HCl (Dilaudid) 1 mg PRN Q4HRS PRN PO MODERATE-SEVERE PAIN Last administered on 05/02/18at 09:12; Start 04/30/18 at 13:00 Morphine Sulfate (Morphine Sulfate) 6 mg 1X ONCE IM ; Start 04/30/18 at 19:45; Stop 04/30/18 at 19:46; Status Cancel Morphine Sulfate (Morphine Sulfate) 6 mg 1X ONCE IM Last administered on at 19:54; Start 04/30/18 at 19:45; Stop 04/30/18 at 19:46; Status DC Prochlorperazine Edisylate (Compazine) 10 mg PRN Q6HRS PRN IV NAUSEA/VOMITING 1ST CHOICE; Start 05/01/18 at 04:00 Ciprofloxacin (Cipro) 500 mg BID PO Last administered on 05/02/18at 09:00; Start 05/01/18 at 21:00 Linezolid (Zyvox) 600 mg BID PO Last administered on 05/02/18at 09:01; Start at 21:00 Potassium Chloride (Klor-Con) 40 meq 1X ONCE PO Last administered on at 15:26; Start 05/01/18 at 12:00; Stop 05/01/18 at 12:01; Status DC Prochlorperazine Maleate (Compazine) 10 mg PRN Q6HRS PRN PO NAUSEA/VOMITING 1ST CHOICE PO; Start 05/01/18 at 23:00 Active Scripts Active Reported Diazepam 5 Mg Tablet 5 Mg PO PRN Q6HRS PRN Seroquel (Quetiapine Fumarate) 100 Mg Tablet 1 Tab PO QHS Ferrous Sulfate 325 Mg Tablet 325 Mg PO BID Humalog (Insulin Lispro) 100 Unit/1 Ml Cartridge 25 Unit SQ TIDWMEALS Lantus Solostar (Insulin Glargine,Hum.rec.anlog) 100 Unit/1 Ml Insuln.pen 80 Unit SQ Q12HR Vitals/I & O Vital Sign - Last 24 Hours 05/01/18 05/01/18 05/01/18 05/01/18 15:00 15:27 15:28 19:00 Temp 98.1 98.9 98.1 98.9 Pulse 100 111 Resp 18 16 16 18 B/P (MAP) 111/62 (78) 120/79 (93) Pulse Ox 97 97 O2 Delivery Room Air Room Air 05/01/18 05/01/18 05/01/18 05/01/18 20:00 20:00 20:01 21:00 Resp 18 18 18 Pulse Ox 97 97 97 O2 Delivery Room Air Room Air Room Air 05/01/18 05/01/18 05/02/18 05/02/18 21:00 23:00 00:01 03:00 Temp 97.9 98.2 97.9 98.2 Pulse 108 102 Resp 18 18 18 18 B/P (MAP) 145/73 (97) 111/68 (82) Pulse Ox 97 99 99 96 O2 Delivery Room Air Room Air Room Air 05/02/18 05/02/18 05/02/18 05/02/18 05:15 05:15 07:00 07:05 Temp 97.9 97.9 Pulse 95 Resp 18 18 18 B/P (MAP) 113/63 (80) Pulse Ox 96 96 90 O2 Delivery Room Air Room Air Room Air Room Air 05/02/18 05/02/18 05/02/18 08:30 09:12 10:56 Pulse Ox 90 O2 Delivery Room Air Room Air Room Air Intake and Output 05/01/18 05/01/18 05/02/18 15:00 23:00 07:00 Intake Total 320 ml 540 ml Balance 320 ml 540 ml MILTON WARE MD May 02, 2018 11:10
[2018-05-02 15:00] VITALS: BP 124/70
[2018-05-02] MEDS ORDERED: DOCUSATE SODIUM 100 MG CAPSULE. PO PRN (15:15)
[2018-05-02] MEDS: DOCUSATE SODIUM 100 MG CAPSULE. PO SCH (15:30)
[2018-05-02 19:00] VITALS: BP 115/72
[2018-05-02] MEDS: QUEtiapine 100 MG TABLET. PO SCH (21:15)
[2018-05-02 23:00] VITALS: BP 123/71
[2018-05-03] MEDS: traMADol 50 MG TABLET PO PRN ×2 (00:50→14:45)
[2018-05-03] MEDS: HYDROmorphone 2 MG TABLET PO PRN ×3 (02:58→14:45)
[2018-05-03 03:00] VITALS: BP 114/68
[2018-05-03] MEDS: diazePAM 5 MG TABLET PO PRN ×2 (05:28→14:44)
[2018-05-03 07:00] VITALS: BP 109/69
[2018-05-03] MEDS ORDERED: INSULIN LISPRO 300 UNITS/3 ML INSULN.PEN. SQ ONE (08:00)
[2018-05-03] MEDS ORDERED: CHLO118L2 TP (08:39)
[2018-05-03] MEDS: DOCUSATE SODIUM 100 MG CAPSULE. PO SCH (09:00)
[2018-05-03] MEDS: LINEZOLID 600 MG TABLET PO SCH (09:13)
[2018-05-03] MEDS: CIPROFLOXACIN HCL 250 MG TABLET. PO SCH (09:14)
[2018-05-03] MEDS: FERROUS SULFATE 325 MG TABLET. PO SCH (09:14)
[2018-05-03] MEDS: LACTOBACILLUS RHAMNOSUS GG 1 CAPSULE. PO SCH (09:14)
[2018-05-03] MEDS: INSULIN LISPRO 300 UNITS/3 ML INSULN.PEN. SQ SCH ×2 (09:24→12:25)
[2018-05-03] MEDS: INSULIN GLARGINE 300 UNITS/3 ML INSULN.PEN. SQ SCH (09:26)
[2018-05-03 11:00] VITALS: BP 112/65
[2018-05-03] MEDS ORDERED: INSULIN LISPRO 300 UNITS/3 ML INSULN.PEN. SQ SCH (12:00)
[2018-05-03 15:00] VITALS: BP 112/65
== END 2018-05-03 16:00 | disposition home or self-care (01) | DRG 863 ==
LOC: ER 21:21 → 5 NORTH 04-30 03:00
PROVIDERS: ADMIT Internal Medicine; ATTEND Internal Medicine
DX: T81.49XA Infection following a procedure, other surgical site, initial encounter (principal); N39.0 Urinary tract infection, site not specified; Y83.9 Surgical procedure, unspecified as the cause of abnormal reaction of the patient, or of later complication, without mention of misadventure at the time of the procedure; B95.62 Methicillin resistant Staphylococcus aureus infection as the cause of diseases classified elsewhere; E10.65 Type 1 diabetes mellitus with hyperglycemia; E66.9 Obesity, unspecified; I10 Essential (primary) hypertension; F41.9 Anxiety disorder, unspecified; E10.42 Type 1 diabetes mellitus with diabetic polyneuropathy; Z68.35 Body mass index [BMI] 35.0-35.9, adult; Z79.4 Long term (current) use of insulin; Z82.49 Family history of ischemic heart disease and other diseases of the circulatory system; Z86.14 Personal history of Methicillin resistant Staphylococcus aureus infection; Z90.49 Acquired absence of other specified parts of digestive tract; Z98.891 History of uterine scar from previous surgery; Z90.721 Acquired absence of ovaries, unilateral; Z88.0 Allergy status to penicillin; Y92.89 Other specified places as the place of occurrence of the external cause; Z88.1 Allergy status to other antibiotic agents; Z88.8 Allergy status to other drugs, medicaments and biological substances
CPT/HCPCS: 36415; 36569; 80048; 80076; 81001; 82962; 83690; 85025; 90471; 90756; 93005; 96361; 96365; 96375; 96376; J0744; J0780; J1200; J1815; J1956; J2020; J2060; J2270; J7030; 99285-25; Q2035

== ENCOUNTER 2018-05-20 22:03 | Emergency (ER) | payer SELFPAY ==
[~2018-05-20] VITALS: Ht 170.2 cm; Wt 95.3 kg
[~2018-05-20 22:03] MED LIST changes: +CHLO118L2 TP
[2018-05-20] MEDS ORDERED: IV NORMAL SALINE 1000ML BAG 1,000 ML IV SCH (22:45)
[2018-05-20 23:20] LABS: BILIRUBIN,URINE NEGATIVE (NEG); CLARITY,URINE CLEAR; COLOR,URINE YELLOW; NITRITE,URINE NEGATIVE (NEG); PROTEIN,URINE NEGATIVE (NEG-TRACE); UROBILINOGEN,URINE 0.2 mg/dL (0.2 mg/dL)
[2018-05-20 23:20] LABS: BASO % 1 % (0-3); EOS % 1 % (0-3); HEMATOCRIT 35.2 % (36.0-47.0); HEMOGLOBIN 11.4 g/dL (12.0-15.5); LYMPH # 1.2 x10^3/uL (1.0-4.8); LYMPH % 30 % (24-48); MEAN CORPUSCULAR HEMOGLOBIN 25 pg (25-35); MEAN CORPUSCULAR HGB CONC 32 g/dL (31-37); MEAN CORPUSCULAR VOLUME 77 fL (79-100); MONO # 0.3 x10^3/uL (0.0-1.1); MONO % 8 % (0-9); NEUT # 2.4 x10^3uL (1.8-7.7); NEUT % 60 % (31-73); PLATELET COUNT 192 x10^3/uL (140-400); RED BLOOD COUNT 4.57 x10^6/uL (3.50-5.40); WHITE BLOOD COUNT 4.1 x10^3/uL (4.0-11.0)
[2018-05-20 23:28] LABS: BACTERIA,URINE FEW /HPF (0-FEW); SQUAMOUS EPITHELIAL CELL,UR MOD /LPF; YEAST,URINE PRESENT /HPF
[2018-05-20 23:33] LABS: ALBUMIN 3.6 g/dL (3.4-5.0); ALBUMIN/GLOBULIN RATIO 0.7 (1.0-1.7); CALCIUM 9.2 mg/dL (8.5-10.1); CREATININE 0.9 mg/dL (0.6-1.0); POTASSIUM 4.1 mmol/L (3.5-5.1); TOTAL BILIRUBIN 0.3 mg/dL (0.2-1.0); TOTAL PROTEIN 8.6 g/dL (6.4-8.2)
[2018-05-20] MEDS ORDERED: KETOROLAC 15 MG/ML VIAL. ONE (23:59)
[2018-05-20] MEDS ORDERED: ONDANSETRON PF 4 MG/2 ML VIAL. ONE (23:59)
[2018-05-21] MEDS ORDERED: INSULIN,REGULAR 150 UNIT DRIP 150 ML IV ONE
[2018-05-21] MEDS ORDERED: KETOROLAC 15 MG/ML VIAL. IV ONE
[2018-05-21] MEDS ORDERED: ACETAMINOPHEN 500 MG TABLET PO ONE (00:45)
--- NOTE | 2018-05-21 00:50 | PHYS DOC ---
Past Medical History Past Medical History: Anxiety, Diabetes-Type I, MRSA, Other Additional Past Medical Histor: neuropathy,ovarian cyst,VENTRAL HERNIA, hyperglycemia,D&C Past Surgical History: Appendectomy, Cholecystectomy, , Oophorectomy, Other Additional Past Surgical Histo: R fallopian, L ovary cyst removed,HERNIA REPAIR , I&D L ARM, left thumb amp Alcohol Use: None Drug Use: None Adult General Chief Complaint Chief Complaint: MULTIPLE COMPLAINTS HPI HPI Patient is a 27 year old [female] who presents with [with several complaints: 1. Pain patient complains of warmth and redness of her left calf as well as increased pain. This is been present for the past 2-3 days. Feels like a pressure sensation when standing up. Increased pain with walking. Also describes it as shooting, burning and cramping. Improved pain with rest. Patient denies any travel, trauma, nor stasis. No previous history of deep vein thrombus. 2. Patient reports that her blood sugar has been high for approximately the past 24-48 hours along with nausea and vomiting. Patient denies any increased urinary frequency however reports that she does urinate frequently at baseline and has not noticed any change. She reports a subjective fever. Denies any recent changes in her diabetes medicines, she is a type I diabetic. Patient denies being any thirstier than usual. Patient also notes that she has had some diarrhea today. ] Review of Systems Review of Systems Constitutional: Denies fever or chills [] Eyes: Denies change in visual acuity, redness, or eye pain [] HENT: Denies nasal congestion or sore throat [] Respiratory: Denies cough or shortness of breath [] Cardiovascular: Denies any chest pain or palpitations[] GI: Denies abdominal pain, nausea, vomiting, bloody stools or diarrhea [] : Denies dysuria or hematuria [] Musculoskeletal: Denies back pain or joint pain [] Integument: Denies skin lesions reports redness in her calf at the location of the discomfort. [] Neurologic: Denies headache, focal weakness or sensory changes [] Endocrine: Denies polyuria or polydipsia [] All other systems were reviewed and found to be within normal limits, except as documented in this note. Current Medications Current Medications Current Medications Medications (Trade) Dose Ordered Sig/Naya Start Time Stop Time Status Last Admin Dose Admin Acetaminophen (Tylenol) 1,000 mg 1X ONCE 05/21/18 00:45 05/21/18 00:46 DC Fluconazole (Diflucan) 200 mg 1X ONCE 05/21/18 02:15 05/21/18 02:16 DC Insulin Human Regular 150 ml @ 0 mls/hr 1X ONCE 05/21/18 00:00 05/21/18 00:01 DC 05/21/18 00:59 9.2 MLS/HR Ketorolac Tromethamine (Toradol 15mg Vial) 15 mg STK-MED ONCE 05/20/18 23:59 05/21/18 00:00 DC Morphine Sulfate (Morphine Sulfate) 4 mg 1X ONCE 05/21/18 02:15 05/21/18 02:16 DC 05/21/18 02:28 4 MG Ondansetron HCl (Zofran) 4 mg 1X ONCE 05/21/18 01:45 05/21/18 01:46 DC Potassium Chloride (Klor-Con) 40 meq 1X ONCE 05/21/18 01:00 05/21/18 01:01 DC Sodium Chloride 1,000 ml @ 1,000 mls/hr 1X ONCE 05/21/18 01:00 05/21/18 01:59 DC 05/21/18 02:03 1,000 MLS/HR Allergies Allergies Allergies Coded Allergies Type Severity Reaction Last Updated Verified Penicillins Allergy Severe ANAPHYLAXIS, cefepime ok 11/12/16 Yes doxycycline Allergy Intermediate 11/12/16 Yes fentanyl Allergy Intermediate 11/12/16 Yes I S O L A T I O N *CONTACT* Allergy Unknown 05/03/18 Yes hydrocodone Adverse Reaction Intermediate itching 11/12/16 Yes Physical Exam Physical Exam Constitutional: Well developed, well nourished, mild distress, non-toxic appearance. [] HENT: Normocephalic, atraumatic, bilateral external ears normal, oropharynx moist, no oral exudates, nose normal. [] Eyes: PERRLA, EOMI, conjunctiva normal, no discharge. [] Neck: Normal range of motion, no tenderness, supple, no stridor. [] Cardiovascular:Heart rate regular rhythm, no murmur [] Lungs & Thorax: Bilateral breath sounds clear to auscultation [] Abdomen: Bowel sounds normal, soft, no tenderness, no masses, no pulsatile masses. [] Skin: Warm, dry, no erythema, no rash. [] Back: No tenderness, no CVA tenderness. [] Extremities: Tenderness present in the left calf along with some erythema and firmness at the level of the medial gastrocnemius insertion patient is distal neurovascularly intact, no cyanosis, no clubbing, ROM intact, no edema. [] Neurologic: Alert and oriented X 3, normal motor function, normal sensory function, no focal deficits noted. [] Psychologic: Affect normal, judgement normal, mood normal. [] Current Patient Data Vital Signs Vital Signs Date Time Temp Pulse Resp B/P (MAP) Pulse Ox O2 Delivery O2 Flow Rate FiO2 05/21/18 04:30 112 16 142/73 (96) 98 Room Air 05/20/18 22:05 98.1 98.1 Lab Values Laboratory Tests Test 05/20/18 22:38 05/20/18 23:07 05/20/18 23:13 05/21/18 01:54 Urine Collection Type Unknown Urine Color Yellow Urine Clarity Clear Urine pH 6.0 Urine Specific [place] >=1.030 Urine Protein Negative mg/dL (NEG-TRACE) Urine Glucose (UA) >=1000 mg/dL (NEG) Urine Ketones (Stick) Negative mg/dL (NEG) Urine Blood Small (NEG) Urine Nitrite Negative (NEG) Urine Bilirubin Negative (NEG) Urine Urobilinogen Dipstick 0.2 mg/dL (0.2 mg/dL) Urine Leukocyte Esterase Negative (NEG) Urine RBC 3-5 /HPF (0-2) Urine WBC 5-10 /HPF (0-4) Urine Squamous Epithelial Cells Mod /LPF Urine Bacteria Few /HPF (0-FEW) Urine Yeast Present /HPF White Blood Count 4.1 x10^3/uL (4.0-11.0) Red Blood Count 4.57 x10^6/uL (3.50-5.40) Hemoglobin 11.4 g/dL (12.0-15.5) L Hematocrit 35.2 % (36.0-47.0) L Mean Corpuscular Volume 77 fL (79-100) L Mean Corpuscular Hemoglobin 25 pg (25-35) Mean Corpuscular Hemoglobin Concent 32 g/dL (31-37) Red Cell Distribution Width 16.0 % (11.5-14.5) H Platelet Count 192 x10^3/uL (140-400) Neutrophils (%) (Auto) 60 % (31-73) Lymphocytes (%) (Auto) 30 % (24-48) Monocytes (%) (Auto) 8 % (0-9) Eosinophils (%) (Auto) 1 % (0-3) Basophils (%) (Auto) 1 % (0-3) Neutrophils # (Auto) 2.4 x10^3uL (1.8-7.7) Lymphocytes # (Auto) 1.2 x10^3/uL (1.0-4.8) Monocytes # (Auto) 0.3 x10^3/uL (0.0-1.1) Eosinophils # (Auto) 0.0 x10^3/uL (0.0-0.7) Basophils # (Auto) 0.0 x10^3/uL (0.0-0.2) Sodium Level 127 mmol/L (136-145) L Potassium Level 4.1 mmol/L (3.5-5.1) Chloride Level 93 mmol/L (98-107) L Carbon Dioxide Level 17 mmol/L (21-32) L Anion Gap 17 (6-14) H Blood Urea Nitrogen 9 mg/dL (7-20) Creatinine 0.9 mg/dL (0.6-1.0) Estimated GFR (Cockcroft-Gault) 74.0 BUN/Creatinine Ratio 10 (6-20) Glucose Level 521 mg/dL (70-99) *H Calcium Level 9.2 mg/dL (8.5-10.1) Total Bilirubin 0.3 mg/dL (0.2-1.0) Aspartate Amino Transferase (AST) 23 U/L (15-37) Alanine Aminotransferase (ALT) 32 U/L (14-59) Alkaline Phosphatase 286 U/L (46-116) H Total Protein 8.6 g/dL (6.4-8.2) H Albumin 3.6 g/dL (3.4-5.0) Albumin/Globulin Ratio 0.7 (1.0-1.7) L POC Urine HCG, Qualitative Hcg negative (Negative) Glucose (Fingerstick) 391 mg/dL (70-99) H Test 05/21/18 03:00 05/21/18 03:09 05/21/18 03:15 05/21/18 03:27 Glucose (Fingerstick) 343 mg/dL (70-99) H O2 Saturation 95 % (92-99) Arterial Blood pH 7.34 (7.35-7.45) L Arterial Blood pCO2 at Patient Temp 34 mmHg (35-46) L Arterial Blood pO2 at Patient Temp 80 mmHg (85-108) L Arterial Blood HCO3 18 mmol/L (21-28) L Arterial Blood Base Excess -7 mmol/L (-3-3) L FiO2 21 Sodium Level 132 mmol/L (136-145) L Potassium Level 3.6 mmol/L (3.5-5.1) Chloride Level 99 mmol/L (98-107) Carbon Dioxide Level 21 mmol/L (21-32) Anion Gap 12 (6-14) Blood Urea Nitrogen 9 mg/dL (7-20) Creatinine 0.8 mg/dL (0.6-1.0) Estimated GFR (Cockcroft-Gault) 84.8 Glucose Level 383 mg/dL (70-99) H Calcium Level 8.8 mg/dL (8.5-10.1) POC Venous pH 7.30 (7.32-7.42) L POC Venous pCO2 36 mmHg (41-51) L POC Venous pO2 33 mmHg (20-40) Venous Blood HCO3 18 mmol/L (24-28) L POC Venous O2 Saturation (Mandy) 57 % POC FiO2 21.0 Test 05/21/18 04:00 Glucose (Fingerstick) 318 mg/dL (70-99) H Laboratory Tests 05/20/18 23:07 Laboratory Tests 05/20/18 23:07 05/21/18 03:15 EKG EKG [] Radiology/Procedures Radiology/Procedures Ultrasound of her left lower extremity shows what appears to be superficial thrombophlebitis in the greater saphenous and lesser saphenous veins[] [facility] [address] [place] [address] IMAGING REPORT Signed PATIENT: SAMANTHA DOWD ACCOUNT: [id number] : 1990 LOCATION: ER AGE: 27 SEX: F EXAM STATUS: REG ER ORD. PHYSICIAN: VALERIA NICHOLE DO REASON: left leg swelling DR WANTS BOTH DVT STUDY AND LOOK AT LUMP PROCEDURE: VENOUS LOWER EXTREMITY LEFT CLINICAL HISTORY: LT LEG PAIN, LT MID MEDIAL LOWER LEG BRUISING PALPABLE LUMP COMPARISON: None available. TECHNIQUE: Ultrasound evaluation of the was performed from the groin to the upper calf with rocha scale, spectral and color doppler evaluation. FINDINGS: The common femoral vein, and femoral vein, including the saphenous-femoral junction are normal in appearance. Color and spectral Doppler evaluation demonstrates normal spontaneous flow, augmentation and phasicity. The popliteal vein demonstrates normal compressibility and flow. Occlusive thrombus is seen within the left greater and lesser saphenous veins from the level of the midcalf to the distal calf. Targeted ultrasound in the region of bruising was performed correlating with thrombus in the greater saphenous vein. IMPRESSION: 1. Occlusive thrombus is seen within the left greater saphenous vein and lesser saphenous vein. Electronically signed by: Emir Cheema MD (05/21/2018 2:06 AM) [facility] DICTATED and SIGNED BY: EMIR CHEEMA MD DATE: 05/21/18 0133 Course & Med Decision Making Course & Med Decision Making Pertinent Labs and Imaging studies reviewed. (See chart for details) [ED course patient was placed in bed. Patient tolerated exam well. Patient had IV access established was started on saline. As her labs came back showing the elevated glucose and low bicarbonate, and insulin infusion was ordered. Her urine shows elevated glucose however negative ketones. She was given ketorolac for the discomfort as well as acetaminophen. Patient care was endorsed to Dr. Rowe at 0 100 pending trial of an insulin infusion to see if this could be a bridge to outpatient treatment along with the ability to tolerate oral intake. Patient has had no vomiting while in the emergency department.] 01:00 Patient endorsed to me by Dr. Nichole. Repeat BMP evaluation for serum glucose and serum bicarbonate correction after fluids. 04:15 Patient improved after IV NS hydration and morphine with decreased pain. Serum glucose improved with normalization of serum bicarbonate. Patient will follow- up with PCP for further evaluation. Dragon Disclaimer Dragon Disclaimer This electronic medical record was generated, in whole or in part, using a voice recognition dictation system. Departure Departure Impression: Primary Impression: Superficial thrombophlebitis of left leg Additional Impressions: Nausea and vomiting Poorly controlled type 1 diabetes mellitus Disposition: HOME, SELF-CARE Condition: STABLE Referrals: NO PCP (PCP) DOMINIC PARKER MD Follow-up on Wednesday for further evaluation Patient Instructions: Hyperglycemia, Phlebitis, Type 1 Diabetes Mellitus, Adult Scripts Naproxen (NAPROXEN) 375 Mg Tablet 1 TAB PO BID for 5 Days, #10 TAB 0 Refills Prov: KENISHA ROWE MD 05/21/18 Tramadol Hcl (TRAMADOL HCL) 50 Mg Tablet 50 MG PO Q6HRS PRN for PAIN for 5 Days, #20 TAB Prov: KENISHA ROWE MD 05/21/18 Problem Qualifiers Additional Impressions: Nausea and vomiting Vomiting type: unspecified Vomiting Intractability: non-intractable Qualified Codes: R11.2 - Nausea with vomiting, unspecified VALERIA NICHOLE DO May 21, 2018 00:50 KENISHA ROWE MD May 21, 2018 01:17
[2018-05-21] MEDS ORDERED: POTASSIUM CHLORIDE 20 MEQ TABLET.ER. PO ONE (01:00)
[2018-05-21] MEDS ORDERED: IV NORMAL SALINE 1000ML BAG 1,000 ML IV ONE (01:00)
[2018-05-21] MEDS ORDERED: ONDANSETRON PF 4 MG/2 ML VIAL. IV ONE ×2 (01:45)
--- NOTE | 2018-05-21 02:10 | RAD ---
CLINICAL HISTORY: LT LEG PAIN, LT MID MEDIAL LOWER LEG BRUISING PALPABLE LUMP COMPARISON: None available. TECHNIQUE: Ultrasound evaluation of the was performed from the groin to the upper calf with rocha scale, spectral and color doppler evaluation. FINDINGS: The common femoral vein, and femoral vein, including the saphenous-femoral junction are normal in appearance. Color and spectral Doppler evaluation demonstrates normal spontaneous flow, augmentation and phasicity. The popliteal vein demonstrates normal compressibility and flow. Occlusive thrombus is seen within the left greater and lesser saphenous veins from the level of the midcalf to the distal calf. Targeted ultrasound in the region of bruising was performed correlating with thrombus in the greater saphenous vein. IMPRESSION: 1. Occlusive thrombus is seen within the left greater saphenous vein and lesser saphenous vein. Electronically signed by: Emir Lira MD (05/21/2018 2:06 AM) [facility]
[2018-05-21] MEDS ORDERED: MORPHINE SULFATE 4 MG/ML VIAL. IV ONE (02:15)
[2018-05-21] MEDS ORDERED: FLUCONAZOLE 100 MG TABLET. PO ONE (02:15)
[2018-05-21 03:10] LABS: BASE EXCESS ABG -7 mmol/L (-3-3); HCO3 ABG 18 mmol/L (21-28); PCO2 ABG 34 mmHg (35-46); PO2 ABG 80 mmHg (85-108); SAT O2 ABG 95 % (92-99)
[2018-05-21 03:32] LABS: ISTAT BE VENOUS -8 mmol/L (0-3); ISTAT HCO3 VEN 18 mmol/L (24-28); ISTAT PCO2 VEN 36 mmHg (41-51); ISTAT PO2 VEN 33 mmHg (20-40); ISTAT SAT O2 VEN 57 %; ISTAT TCO2 VEN 19 mmol/L (21-32)
[2018-05-21 03:33] LABS: FIO2 ABG 21
[2018-05-21 03:45] LABS: CALCIUM 8.8 mg/dL (8.5-10.1); CREATININE 0.8 mg/dL (0.6-1.0); GFR 84.8; POTASSIUM 3.6 mmol/L (3.5-5.1)
[2018-05-21] MEDS ORDERED: NAPR-695 PO (04:23)
[2018-05-21] MEDS ORDERED: TRAM50TA PO (04:23)
[2018-05-21 04:30] VITALS: BP 142/73
== END 2018-05-21 04:59 | disposition home or self-care (01) ==
LOC: ER 22:03
DX: I80.02 Phlebitis and thrombophlebitis of superficial vessels of left lower extremity (principal); R11.2 Nausea with vomiting, unspecified; E10.40 Type 1 diabetes mellitus with diabetic neuropathy, unspecified; F41.9 Anxiety disorder, unspecified; E10.65 Type 1 diabetes mellitus with hyperglycemia; Z90.49 Acquired absence of other specified parts of digestive tract; Z90.89 Acquired absence of other organs; Z98.890 Other specified postprocedural states; Z88.5 Allergy status to narcotic agent; Z88.8 Allergy status to other drugs, medicaments and biological substances; Z88.1 Allergy status to other antibiotic agents; Z91.041 Radiographic dye allergy status
CPT/HCPCS: 36415; 36600; 80048; 80053; 81001; 81025; 82803; 82805; 82962; 85025; 87086; 93971; 96361; 96365; 96366; 96375; 99285; J1815; J1885; J2270; J2405; J7030

== ENCOUNTER 2018-06-17 21:42 | Emergency (ER) | payer SELFPAY ==
[~2018-06-17] VITALS: Ht 170.2 cm; Wt 95.3 kg
[~2018-06-17 21:42] MED LIST changes: +HYDR-3164 PO; -HYDR-971 PO
[2018-06-17] MEDS ORDERED: INSULIN REGULAR 100 UNIT/ML 3ML VIAL. IV ONE (22:15)
[2018-06-17] MEDS ORDERED: IV NORMAL SALINE 1000ML BAG 1,000 ML IV ONE (22:15)
--- NOTE | 2018-06-17 22:19 | PHYS DOC ---
Past Medical History Past Medical History: Anxiety, Diabetes-Type I, MRSA, Other Additional Past Medical Histor: neuropathy,ovarian cyst,VENTRAL HERNIA, hyperglycemia,D&C Past Surgical History: Appendectomy, Cholecystectomy, , Oophorectomy, Other Additional Past Surgical Histo: R fallopian, L ovary cyst removed,HERNIA REPAIR , I&D L ARM, left thumb amp Alcohol Use: None Drug Use: None Adult General Chief Complaint Chief Complaint: ABDOMINAL PAIN [facility] HPI Patient is a 27 year old female who presents with complaints of abdominal pain and elevated blood sugar. The patient is very well-known to this facility. She states that she was just recently changed to a new diabetic medication. She states that she has been taking her medications as prescribed. She states that she also has dysuria and discolored urine. Review of Systems Review of Systems Constitutional: Denies fever or chills [] Eyes: Denies change in visual acuity, redness, or eye pain [] HENT: Denies nasal congestion or sore throat [] Respiratory: Denies cough or shortness of breath [] Cardiovascular: No additional information not addressed in HPI [] GI: Denies abdominal pain, nausea, vomiting, bloody stools or diarrhea [] : Denies dysuria or hematuria [] Musculoskeletal: Denies back pain or joint pain [] Integument: Denies rash or skin lesions [] Neurologic: Denies headache, focal weakness or sensory changes [] Endocrine: Denies polyuria or polydipsia [] All other systems were reviewed and found to be within normal limits, except as documented in this note. Current Medications Current Medications Current Medications Medications (Trade) Dose Ordered Sig/Naya Start Time Stop Time Status Last Admin Dose Admin Heparin Sodium (Porcine) (Hep Lock Adult) 500 unit 1X ONCE 06/18/18 00:30 06/18/18 00:32 DC 06/18/18 00:15 500 UNIT Insulin Human Regular (HumuLIN R VIAL) 10 unit 1X ONCE 06/17/18 22:15 06/17/18 22:16 DC 06/17/18 23:11 10 UNIT Ketorolac Tromethamine (Toradol 30mg Vial) 30 mg 1X ONCE 06/17/18 23:15 06/17/18 23:16 DC 06/17/18 23:12 30 MG Ondansetron HCl (Zofran) 4 mg 1X ONCE 06/17/18 22:30 11/16/18 22:31 DC 06/17/18 23:09 4 MG Sodium Chloride 1,000 ml @ 1,000 mls/hr 1X ONCE 06/17/18 22:15 06/17/18 23:14 DC 06/17/18 23:06 1,000 MLS/HR Allergies Allergies Allergies Coded Allergies Type Severity Reaction Last Updated Verified Penicillins Allergy Severe ANAPHYLAXIS, cefepime ok 11/12/16 Yes doxycycline Allergy Intermediate 11/12/16 Yes fentanyl Allergy Intermediate 11/12/16 Yes I S O L A T I O N *CONTACT* Allergy Unknown 05/03/18 Yes hydrocodone Adverse Reaction Intermediate itching 11/12/16 Yes Physical Exam Physical Exam Constitutional: Well developed, well nourished, no acute distress, non-toxic appearance. [] HENT: Normocephalic, atraumatic, bilateral external ears normal, oropharynx moist, no oral exudates, nose normal. [] Eyes: PERRLA, EOMI, conjunctiva normal, no discharge. [] Neck: Normal range of motion, no tenderness, supple, no stridor. [] Cardiovascular:Heart rate regular rhythm, no murmur [] Lungs & Thorax: Bilateral breath sounds clear to auscultation [] Abdomen: Bowel sounds normal, soft, no tenderness, no masses, no pulsatile masses. [] Skin: Warm, dry, no erythema, no rash. [] Back: No tenderness, no CVA tenderness. [] Extremities: tenderness to left leg, no cyanosis, no clubbing, ROM intact, no edema. [] Neurologic: Alert and oriented X 3, normal motor function, normal sensory function, no focal deficits noted. [] Psychologic: Affect normal, judgement normal, mood normal. [] Current Patient Data Vital Signs Vital Signs Date Time Temp Pulse Resp B/P (MAP) Pulse Ox O2 Delivery O2 Flow Rate FiO2 06/18/18 00:17 104 16 144/77 (99) 98 Room Air 06/17/18 22:10 97.8 97.8 Lab Values Laboratory Tests Test 06/17/18 22:00 06/17/18 22:02 06/17/18 22:08 06/17/18 22:25 Urine Collection Type Unknown Urine Color Yellow Urine Clarity Clear Urine pH 6.5 Urine Specific [place] 1.025 Urine Protein Negative mg/dL (NEG-TRACE) Urine Glucose (UA) >=1000 mg/dL (NEG) Urine Ketones (Stick) Negative mg/dL (NEG) Urine Blood Large (NEG) Urine Nitrite Negative (NEG) Urine Bilirubin Negative (NEG) Urine Urobilinogen Dipstick 0.2 mg/dL (0.2 mg/dL) Urine Leukocyte Esterase Negative (NEG) Urine RBC Tntc /HPF (0-2) Urine WBC Occ /HPF (0-4) Urine Squamous Epithelial Cells Occ /LPF Urine Bacteria 0 /HPF (0-FEW) Urine Opiates Screen Neg (NEG) Urine Methadone Screen Neg (NEG) Urine Barbiturates Neg (NEG) Urine Phencyclidine Screen Neg (NEG) Urine Amphetamine/Methamphetamine Neg (NEG) Urine Benzodiazepines Screen Neg (NEG) Urine Cocaine Screen Neg (NEG) Urine Cannabinoids Screen Neg (NEG) Urine Ethyl Alcohol Neg (NEG) Glucose (Fingerstick) 543 mg/dL (70-99) *H POC Urine HCG, Qualitative Hcg negative (Negative) Sodium Level 127 mmol/L (136-145) L Potassium Level 4.2 mmol/L (3.5-5.1) Chloride Level 92 mmol/L (98-107) L Carbon Dioxide Level 26 mmol/L (21-32) Anion Gap 9 (6-14) Blood Urea Nitrogen 4 mg/dL (7-20) L Creatinine 0.9 mg/dL (0.6-1.0) Estimated GFR (Cockcroft-Gault) 74.0 Glucose Level 578 mg/dL (70-99) *H Calcium Level 8.9 mg/dL (8.5-10.1) Test 06/18/18 00:01 Glucose (Fingerstick) 351 mg/dL (70-99) H Laboratory Tests 06/17/18 22:25 EKG EKG [] Radiology/Procedures Radiology/Procedures []PATIENT: SAMANTHA DOWD EACCOUNT: [id number]#: [id number] : 1990 LOCATION: ER AGE: 27 SEX: F EXAM STATUS: REG ER ORD. PHYSICIAN: JUAN PAROSN APRN REASON: hx of clot to greater saphenous PROCEDURE: VENOUS LOWER EXTREMITY LEFT Exam performed: Left lower extremity venous Doppler. Clinical Indication: Follow-up from superficial thrombophlebitis with clot in the greater and lesser saphenous vein, patient is not on blood thinners Date of Service: 06/17/2018 Comparison : Left lower extremity venous Doppler from May 20, 2018 Discussion: Multiple longitudinal and transverse high resolution real-time images of the venous system of left lower extremity were obtained with color and Doppler sampling and spectral analysis. The common femoral, superficial femoral, popliteal and proximal calf veins are all patent and demonstrate normal flow and compressibility. Normal respiratory phasicity and augmentation is present. Previously seen thrombus in the left greater and lesser saphenous veins are redemonstrated Impression: Normal color duplex ultrasound of the venous system of left lower extremity. Superficial thrombophlebitis involving the left greater and lesser saphenous veins redemonstrated. Electronically signed by: Linda Sterling MD (06/17/2018 11:28 PM) [facility] DICTATED and SIGNED BY: LINDA STERLING MD DATE: 06/17/18 9376 Course & Med Decision Making Course & Med Decision Making Pertinent Labs and Imaging studies reviewed. (See chart for details) []The patient was given insulin and fluids in the emergency department to correct her hyperglycemia. We also sounded leg to see if her DVT was resolving in her saphenous vein. It is persistent. She will be discharged home with. She has been instructed that if she cannot afford the medication that she should take an aspirin daily for 45 days. She is to follow up with her provider at [facility]. She is in agreement with this plan. Dragon Disclaimer Dragon Disclaimer This electronic medical record was generated, in whole or in part, using a voice recognition dictation system. Departure Departure Impression: Primary Impression: Hyperglycemia Additional Impressions: N&V (nausea and vomiting) Saphenous vein clot Disposition: HOME, SELF-CARE Condition: STABLE Referrals: NO PCP (PCP) Patient Instructions: Deep Vein Thrombosis, Hyperglycemia, Nausea and Vomiting , [id number] Additional Instructions: Take the medication as prescribed. Follow-up with your primary care office in 2 days for recheck. If worsening return to the emergency department. Scripts Apixaban (ELIQUIS) 5 Mg Tablet 5 MG PO BID for DVT for 45 Days, #90 TAB Prov: JUAN PARSON APRN 06/17/18 Problem Qualifiers JUAN PARSON APRN Jun 17, 2018 22:19
[2018-06-17 22:20] LABS: BILIRUBIN,URINE NEGATIVE (NEG); CLARITY,URINE CLEAR; COLOR,URINE YELLOW; NITRITE,URINE NEGATIVE (NEG); PH,URINE 6.5; PROTEIN,URINE NEGATIVE (NEG-TRACE); UROBILINOGEN,URINE 0.2 mg/dL (0.2 mg/dL)
[2018-06-17] MEDS ORDERED: ONDANSETRON PF 4 MG/2 ML VIAL. IV ONE (22:30)
[2018-06-17 22:36] LABS: BACTERIA,URINE 0 /HPF (0-FEW); RBC,URINE TNTC /HPF (0-2); SQUAMOUS EPITHELIAL CELL,UR OCC /LPF; WBC,URINE OCC /HPF (0-4)
[2018-06-17 22:41] LABS: AMPHETAMINE/METHAMPHETAMINE NEG (NEG); BARBITURATES NEG (NEG); BENZODIAZEPINES NEG (NEG); CANNABINOIDS NEG (NEG); COCAINE NEG (NEG); METHADONE NEG (NEG); OPIATES NEG (NEG); PHENCYCLIDINE NEG (NEG)
[2018-06-17 22:56] LABS: CALCIUM 8.9 mg/dL (8.5-10.1); CREATININE 0.9 mg/dL (0.6-1.0); POTASSIUM 4.2 mmol/L (3.5-5.1)
[2018-06-17] MEDS ORDERED: KETOROLAC 30 MG/ML VIAL. IV ONE (23:15)
[2018-06-17] MEDS ORDERED: APIX5TAB PO (23:20)
--- NOTE | 2018-06-17 23:32 | RAD ---
Exam performed: Left lower extremity venous Doppler. Clinical Indication: Follow-up from superficial thrombophlebitis with clot in the greater and lesser saphenous vein, patient is not on blood thinners Date of Service: 06/17/2018 Comparison : Left lower extremity venous Doppler from May 20, 2018 Discussion: Multiple longitudinal and transverse high resolution real-time images of the venous system of left lower extremity were obtained with color and Doppler sampling and spectral analysis. The common femoral, superficial femoral, popliteal and proximal calf veins are all patent and demonstrate normal flow and compressibility. Normal respiratory phasicity and augmentation is present. Previously seen thrombus in the left greater and lesser saphenous veins are redemonstrated Impression: Normal color duplex ultrasound of the venous system of left lower extremity. Superficial thrombophlebitis involving the left greater and lesser saphenous veins redemonstrated. Electronically signed by: Linda Sterling MD (06/17/2018 11:28 PM) [facility]
[2018-06-18 00:17] VITALS: BP 144/77
[2018-06-18] MEDS ORDERED: HEPARIN PF 500 UNIT/5 ML DISP.SYRIN. IV ONE ×2 (00:21→00:30)
== END 2018-06-18 00:25 | disposition home or self-care (01) ==
LOC: ER 21:42
DX: E10.65 Type 1 diabetes mellitus with hyperglycemia (principal); R11.2 Nausea with vomiting, unspecified; I82.812 Embolism and thrombosis of superficial veins of left lower extremity; R30.0 Dysuria; E10.40 Type 1 diabetes mellitus with diabetic neuropathy, unspecified; F41.9 Anxiety disorder, unspecified; Z90.49 Acquired absence of other specified parts of digestive tract; Z90.89 Acquired absence of other organs; Z98.890 Other specified postprocedural states; Z90.721 Acquired absence of ovaries, unilateral; Z88.0 Allergy status to penicillin; Z88.8 Allergy status to other drugs, medicaments and biological substances; Z88.5 Allergy status to narcotic agent; Z91.041 Radiographic dye allergy status
CPT/HCPCS: 36415; 80048; 80307; 81001; 81025; 82962; 93971; 96361; 96374; 96375; 99285; J1815; J1885; J2405; J7030

== ENCOUNTER 2018-10-08 18:45 | Emergency (ER) | payer SELFPAY ==
[~2018-10-08] VITALS: Ht 165.1 cm; Wt 90.7 kg
[~2018-10-08 18:45] MED LIST changes: +APIX5TAB PO; +AZIT250T6 PO; -GABA-586 PO; +GABA300C18 PO; -GABA600T2 PO; +GABA600T7 PO; -HYDR-2758 PO; +HYDR-2761 PO; +LACT1CAP19 PO; +LINE600T PO; -OXYC-323 PO; +OXYC1TAB15 PO; +OXYC5TAB4 PO; -OXYC5TAB95 PO; +TRAZ-118 PO; -TRAZ-85 PO
[2018-10-08] MEDS ORDERED: IV NORMAL SALINE 1000ML BAG 1,000 ML IV ONE (20:00)
[2018-10-08] MEDS ORDERED: ONDANSETRON PF 4 MG/2 ML VIAL. IV ONE (20:00)
[2018-10-08 20:13] LABS: BASO % 0 % (0-3); EOS % 1 % (0-3); HEMATOCRIT 34.5 % (36.0-47.0); LYMPH # 1.8 x10^3/uL (1.0-4.8); LYMPH % 35 % (24-48); MEAN CORPUSCULAR HEMOGLOBIN 25 pg (25-35); MEAN CORPUSCULAR HGB CONC 32 g/dL (31-37); MEAN CORPUSCULAR VOLUME 78 fL (79-100); MONO # 0.4 x10^3/uL (0.0-1.1); MONO % 7 % (0-9); NEUT # 2.9 x10^3uL (1.8-7.7); NEUT % 57 % (31-73); PLATELET COUNT 257 x10^3/uL (140-400); RED BLOOD COUNT 4.42 x10^6/uL (3.50-5.40); RED CELL DISTRIBUTION WIDTH 17.3 % (11.5-14.5); WHITE BLOOD COUNT 5.1 x10^3/uL (4.0-11.0)
[2018-10-08 20:15] LABS: BILIRUBIN,URINE NEGATIVE (NEG); CLARITY,URINE CLEAR; COLOR,URINE YELLOW; NITRITE,URINE NEGATIVE (NEG); PH,URINE 6.5; PROTEIN,URINE NEGATIVE (NEG-TRACE); UROBILINOGEN,URINE 0.2 mg/dL (0.2 mg/dL)
[2018-10-08 20:26] LABS: CALCIUM 8.6 mg/dL (8.5-10.1); CREATININE 0.7 mg/dL (0.6-1.0); GFR 98.9; POTASSIUM 4.1 mmol/L (3.5-5.1)
[2018-10-08 20:29] LABS: RBC,URINE TNTC /HPF (0-2)
[2018-10-08 20:30] LABS: BACTERIA,URINE FEW /HPF (0-FEW); SQUAMOUS EPITHELIAL CELL,UR OCC /LPF; WBC,URINE OCC /HPF (0-4)
[2018-10-08 20:40] LABS: ALBUMIN 3.2 g/dL (3.4-5.0); ALBUMIN/GLOBULIN RATIO 0.7 (1.0-1.7); MAGNESIUM 1.6 mg/dL (1.8-2.4); TOTAL BILIRUBIN 0.3 mg/dL (0.2-1.0); TOTAL PROTEIN 7.7 g/dL (6.4-8.2); U PREG PATIENT NEGATIVE (NEG)
[2018-10-08] MEDS ORDERED: KETOROLAC 15 MG/ML VIAL. IV ONE (20:45)
[2018-10-08] MEDS ORDERED: MORPHINE SULFATE 4 MG/ML VIAL. IV ONE ×2 (20:45→22:00)
[2018-10-08] MEDS ORDERED: PROCHLORPERAZINE 10 MG/2 ML VIAL. IV ONE (22:00)
--- NOTE | 2018-10-08 22:13 | RAD ---
CT abdomen and pelvis without contrast PQRS statement: CT scans at this facility use dose reduction including either automated exposure control, iterative reconstructions, and /or weight based radiation dosing via mA and kV modification when appropriate to reduce radiation dose to as low as reasonably achievable. HISTORY: Left flank pain. Hematuria. COMPARISON: CT abdomen and pelvis January 27, 2019. Abdomen findings: The nodular opacities of the lung bases have decreased in density in number but there are persistent groundglass opacities and small subcentimeter nodules remaining. Hepatosplenomegaly again demonstrated as previously described. Cholecystectomy. No urinary calculi or hydronephrosis. There is mild distention of the proximal right ureter and surrounding edema which is new. No perinephric edema. Cholecystectomy. Pancreas and adrenals are unremarkable. Appendectomy. No obstruction or inflammation GI tract. No abdominal fluid. Nodular densities at the abdominal wall similar the prior exam likely related to injections. Bones unremarkable. Pelvis findings: Massive distention of the urinary bladder increased prior exam, no bladder calculi. Left ovarian 3 cm hypodensity is stable. Right ovary poorly visualized obscured by surrounding bowel loops or is atrophic/surgically absent. Uterus, rectum and bones are unremarkable. No pelvic free fluid. IMPRESSION: 1. Massive distention of the urinary bladder new from the prior exam. No urinary calculi. 2. Mild distention of the right proximal ureter and surrounding edema is new from the prior exam, this is nonspecific, could indicate pyelitis or the sequela of a recently passed calculus. No hydronephrosis. 3. Appendectomy. 4. Chronic findings are stable to the prior study as described above. 5. Persistent but improved nodular opacities at the lung bases. Electronically signed by: Omar Rice MD (10/08/2018 10:10 PM) [facility]
[2018-10-08] MEDS ORDERED: INSULIN REGULAR 100 UNIT/ML 3ML VIAL. IV ONE (22:15)
--- NOTE | 2018-10-08 22:35 | PHYS DOC ---
Past Medical History Past Medical History: Diabetes-Type I, Ovarian Cyst Additional Past Medical Histor: neuropathy,ovarian cyst,VENTRAL HERNIA, hyperglycemia,D&C, L leg clot (WENDI MONTAÑO APRN) Past Surgical History: Other Additional Past Surgical Histo: R fallopian, L ovary cyst removed,HERNIA REPAIR , I&D L ARM, left thumb amp (WENDI MONTAÑO APRN) Alcohol Use: None Drug Use: None (WENDI MONTAÑO APRN) Adult General Chief Complaint Chief Complaint: NAUSEA/VOMITING/DIARRHA HPI HPI Patient is a 27 year old female who presents to the emergency Department today with complaints of nausea, vomiting, diarrhea, difficulty urinating, hematuria, left flank pain, and high blood sugars that began today. She denies any fever, cough, shortness of breath, headache, numbness, tingling, or weakness. Patient states that she usually feels like this when she has a kidney infection. States that today she has been having difficulty urinating and states that he has taken more effort to avoid. She describes the pain in her left flank and left lower abdomen as sharp and stabbing and rates the pain an 9 out of 10 on the pain scale. She states that there are no alleviating or exacerbating factors. (WENDI MONTAÑO APRN) Review of Systems Review of Systems Constitutional: Denies fever or chills [] Eyes: Denies redness, or eye pain [] HENT: Denies nasal congestion or sore throat [] Respiratory: Denies cough or shortness of breath [] Cardiovascular: No additional information not addressed in HPI [] GI: See history of present illness : History of present illness Musculoskeletal: Denies joint pain [] Integument: Denies rash or skin lesions [] Neurologic: Denies headache, focal weakness or sensory changes [] Endocrine: Reports polyuria and elevated blood sugars today Complete systems were reviewed and found to be within normal limits, except as documented in this note. (WENDI MONTAÑO APRN) Current Medications Current Medications Current Medications Medications (Trade) Dose Ordered Sig/Naya Start Time Stop Time Status Last Admin Dose Admin Heparin Sodium (Porcine) (Hep Lock Adult) 500 unit 1X ONCE 10/09/18 00:15 10/09/18 00:21 DC 10/09/18 00:11 500 UNIT Insulin Human Regular (HumuLIN R VIAL) 5 unit 1X ONCE 10/08/18 22:15 10/08/18 22:16 DC 10/08/18 22:50 5 UNIT Ketorolac Tromethamine (Toradol 15mg Vial) 15 mg 1X ONCE 10/08/18 20:45 10/08/18 20:46 DC 10/08/18 20:41 15 MG Morphine Sulfate (Morphine Sulfate) 4 mg 1X ONCE 10/08/18 22:00 10/08/18 22:01 DC 10/08/18 21:59 4 MG Ondansetron HCl (Zofran) 4 mg 1X ONCE 10/08/18 20:00 10/08/18 20:01 DC 10/08/18 20:10 4 MG Prochlorperazine Edisylate (Compazine) 10 mg 1X ONCE 10/08/18 22:00 10/08/18 22:01 DC 10/08/18 21:59 10 MG Sodium Chloride 1,000 ml @ 1,000 mls/hr 1X ONCE 10/08/18 20:00 10/08/18 20:59 DC 10/08/18 20:10 1,000 MLS/HR Tramadol HCl (Ultram) 100 mg 1X ONCE 10/09/18 00:00 10/09/18 00:01 DC 10/09/18 00:04 100 MG (TEREZA MARIE MD) Allergies Allergies Allergies Coded Allergies Type Severity Reaction Last Updated Verified Penicillins Allergy Severe ANAPHYLAXIS, cefepime ok 11/12/16 Yes doxycycline Allergy Intermediate 11/12/16 Yes fentanyl Allergy Intermediate 11/12/16 Yes I S O L A T I O N *CONTACT* Allergy Unknown 08/12/18 Yes hydrocodone Adverse Reaction Intermediate itching 11/12/16 Yes cefepime Adverse Reaction Mild "makes her feel sick" 07/08/18 Yes (TEREZA MARIE MD) Physical Exam Physical Exam Constitutional: Well developed, well nourished, mild distress, non-toxic appearance, obese. [] HENT: Normocephalic, atraumatic, bilateral external ears normal, dry mucous membranes, no oral exudates, nose normal. [] Eyes: PERRLA, conjunctiva normal, no discharge. [] Neck: Normal range of motion, no stridor. [] Cardiovascular:Heart rate regular rhythm, no murmur [] Lungs & Thorax: Bilateral breath sounds clear to auscultation [] Abdomen: Bowel sounds normal, soft, lower left quadrant TTP no guarding, no masses, no pulsatile masses. [] Skin: Warm, dry, no erythema, no rash. [] Back: left CVA tenderness. [] Extremities: No cyanosis, ROM intact, no edema. [] Neurologic: Alert and oriented X 3, normal motor function, normal sensory function, no focal deficits noted. [] Psychologic: Affect normal, judgement normal, mood normal. [] (WENDI MONTAÑO APRN) Current Patient Data Vital Signs Vital Signs Date Time Temp Pulse Resp B/P (MAP) Pulse Ox O2 Delivery O2 Flow Rate FiO2 10/09/18 00:29 112 18 113/65 (81) 96 10/08/18 19:30 98.3 Room Air 98.3 (TEREZA MARIE MD) Lab Values Laboratory Tests Test 10/08/18 19:33 10/08/18 19:37 Glucose (Fingerstick) 483 mg/dL (70-99) H White Blood Count 5.1 x10^3/uL (4.0-11.0) Red Blood Count 4.42 x10^6/uL (3.50-5.40) Hemoglobin 11.0 g/dL (12.0-15.5) L Hematocrit 34.5 % (36.0-47.0) L Mean Corpuscular Volume 78 fL (79-100) L Mean Corpuscular Hemoglobin 25 pg (25-35) Mean Corpuscular Hemoglobin Concent 32 g/dL (31-37) Red Cell Distribution Width 17.3 % (11.5-14.5) H Platelet Count 257 x10^3/uL (140-400) Neutrophils (%) (Auto) 57 % (31-73) Lymphocytes (%) (Auto) 35 % (24-48) Monocytes (%) (Auto) 7 % (0-9) Eosinophils (%) (Auto) 1 % (0-3) Basophils (%) (Auto) 0 % (0-3) Neutrophils # (Auto) 2.9 x10^3uL (1.8-7.7) Lymphocytes # (Auto) 1.8 x10^3/uL (1.0-4.8) Monocytes # (Auto) 0.4 x10^3/uL (0.0-1.1) Eosinophils # (Auto) 0.0 x10^3/uL (0.0-0.7) Basophils # (Auto) 0.0 x10^3/uL (0.0-0.2) Urine Collection Type Unknown Urine Color Yellow Urine Clarity Clear Urine pH 6.5 Urine Specific [place] 1.015 Urine Protein Negative mg/dL (NEG-TRACE) Urine Glucose (UA) >=1000 mg/dL (NEG) Urine Ketones (Stick) Negative mg/dL (NEG) Urine Blood Large (NEG) Urine Nitrite Negative (NEG) Urine Bilirubin Negative (NEG) Urine Urobilinogen Dipstick 0.2 mg/dL (0.2 mg/dL) Urine Leukocyte Esterase Negative (NEG) Urine RBC Tntc /HPF (0-2) Urine WBC Occ /HPF (0-4) Urine Squamous Epithelial Cells Occ /LPF Urine Bacteria Few /HPF (0-FEW) Urine Test Negative (NEG) Sodium Level 134 mmol/L (136-145) L Potassium Level 4.1 mmol/L (3.5-5.1) Chloride Level 98 mmol/L (98-107) Carbon Dioxide Level 24 mmol/L (21-32) Anion Gap 12 (6-14) Blood Urea Nitrogen 5 mg/dL (7-20) L Creatinine 0.7 mg/dL (0.6-1.0) Estimated GFR (Cockcroft-Gault) 98.9 BUN/Creatinine Ratio 7 (6-20) Glucose Level 427 mg/dL (70-99) H Calcium Level 8.6 mg/dL (8.5-10.1) Magnesium Level 1.6 mg/dL (1.8-2.4) L Total Bilirubin 0.3 mg/dL (0.2-1.0) Aspartate Amino Transferase (AST) 50 U/L (15-37) H Alanine Aminotransferase (ALT) 39 U/L (14-59) Alkaline Phosphatase 534 U/L (46-116) H Total Protein 7.7 g/dL (6.4-8.2) Albumin 3.2 g/dL (3.4-5.0) L Albumin/Globulin Ratio 0.7 (1.0-1.7) L Laboratory Tests 10/08/18 19:37 Laboratory Tests 10/08/18 19:37 (TEREZA MARIE MD) EKG EKG [] (WENDI MONTAÑO APRN) Radiology/Procedures Radiology/Procedures PROCEDURE: CT ABDOMEN PELVIS WO CONTRAST CT abdomen and pelvis without contrast PQRS statement: CT scans at this facility use dose reduction including either automated exposure control, iterative reconstructions, and /or weight based radiation dosing via mA and kV modification when appropriate to reduce radiation dose to as low as reasonably achievable. HISTORY: Left flank pain. Hematuria. COMPARISON: CT abdomen and pelvis January 27, 2019. Abdomen findings: The nodular opacities of the lung bases have decreased in density in number but there are persistent groundglass opacities and small subcentimeter nodules remaining. Hepatosplenomegaly again demonstrated as previously described. Cholecystectomy. No urinary calculi or hydronephrosis. There is mild distention of the proximal right ureter and surrounding edema which is new. No perinephric edema. Cholecystectomy. Pancreas and adrenals are unremarkable. Appendectomy. No obstruction or inflammation GI tract. No abdominal fluid. Nodular densities at the abdominal wall similar the prior exam likely related to injections. Bones unremarkable. Pelvis findings: Massive distention of the urinary bladder increased prior exam, no bladder calculi. Left ovarian 3 cm hypodensity is stable. Right ovary poorly visualized obscured by surrounding bowel loops or is atrophic/surgically absent. Uterus, rectum and bones are unremarkable. No pelvic free fluid. IMPRESSION: 1. Massive distention of the urinary bladder new from the prior exam. No urinary calculi. 2. Mild distention of the right proximal ureter and surrounding edema is new from the prior exam, this is nonspecific, could indicate pyelitis or the sequela of a recently passed calculus. No hydronephrosis. 3. Appendectomy. 4. Chronic findings are stable to the prior study as described above. 5. Persistent but improved nodular opacities at the lung bases. 2235 post-void residual 568 ml. millan catheter ordered. [] (WENDI MONTAÑO APRN) Course & Med Decision Making Course & Med Decision Making Pertinent Labs and Imaging studies reviewed. (See chart for details) dx: Nausea, vomiting, acute urinary retention, hematuria, diarrhea, hyperglycemia due to type 1 diabetes, urinary tract infection ddx: DKA, acute renal failure, sepsis, cystitis, pyelonephritis, kidney stone CBC revealed hemoglobin of 11, hematocrit of 34.5 patient has history of anemia , blood glucose was 427, AST was 50, alkaline phosphatase 534 consistent with patient's history of elevated alkaline phosphatase, urine was positive for large amount of blood occasional white blood cell and few bacteria anion gap was normal. Urine test was negative. CT scan revealed: 1. Massive distention of the urinary bladder new from the prior exam. No urinary calculi. 2. Mild distention of the right proximal ureter and surrounding edema is new from the prior exam, this is nonspecific, could indicate pyelitis or the sequela of a recently passed calculus. No hydronephrosis. 3. Appendectomy. 4. Chronic findings are stable to the prior study as described above. 5. Persistent but improved nodular opacities at the lung bases. Bladder scan revealed post-void residual 568 ml. a millan catheter was ordered. Patient was given a liter of NS in the emergency department 2 doses of 4 mg of morphine, 15 mg of Toradol, 4 mg of Zofran, and 10 mg of Compazine. She also received 5 units of regular insulin IV, and 2- 50 mg tablets of tramadol. She reported feeling better after these interventions. Discussed ability to go home with catheter in place and need for outpatient follow-up with with the patient. Patient verbalized an understanding of instructions and was in agreement with plan to go home. Prescriptions were written for Bactrim DS and for tramadol. Patient was encouraged to return to the emergency room if her symptoms worsened. Patient verbalized an understanding of home care, medications , follow-up, and return to ED instructions and was in agreement with the plan of care. [] [] (WENDI MONTAÑO APRN) Course & Med Decision Making Staff Physician Addendum: I was working in the ER during the course of this patient's visit. I was available for consultation as needed, but I was not directly involved in the care of this patient. (TEREZA MARIE MD) Dragon Disclaimer Dragon Disclaimer This electronic medical record was generated, in whole or in part, using a voice recognition dictation system. (WENDI MONTAÑO APRN) Departure Departure Impression: Primary Impression: N&V (nausea and vomiting) Additional Impressions: Hematuria Hyperglycemia due to type 1 diabetes mellitus Urinary retention UTI (urinary tract infection) Diarrhea Disposition: HOME, SELF-CARE Condition: STABLE Referrals: NO PCP (PCP) SHANEL GUEVARA MD Patient Instructions: Millan Catheter Care, Adult, Urinary Retention, Acute, Female, [id number], Urinary Tract Infection, [id number], Viral Gastroenteritis, [id number] Additional Instructions: Fill the prescriptions and use as directed. Call Dr. Guevara's office to schedule a follow up appointment on Wednesday. Return to the ER if symptoms worsen. Scripts Tramadol Hcl (TRAMADOL HCL) 50 Mg Tablet 50 MG PO Q6HRS PRN for PAIN for 3 Days, #12 TAB 0 Refills Prov: WENDI MONTAÑO APRN 10/08/18 Sulfamethoxazole/Trimethoprim (BACTRIM DS TABLET) 1 Each Tablet 1 TAB PO BID, #20 TAB Prov: WENDI MONTAÑO [employer] UNDERWRITER 10/08/18 Problem Qualifiers Primary Impression: N&V (nausea and vomiting) Vomiting type: unspecified Vomiting Intractability: non-intractable Qualified Codes: R11.2 - Nausea with vomiting, unspecified Additional Impressions: Hematuria Hematuria type: unspecified type Qualified Codes: R31.9 - Hematuria, unspecified UTI (urinary tract infection) Urinary tract infection type: site unspecified Hematuria presence: with hematuria Qualified Codes: N39.0 - Urinary tract infection, site not specified ; R31.9 - Hematuria, unspecified Diarrhea Diarrhea type: unspecified type Qualified Codes: R19.7 - Diarrhea, unspecified WENDI MONTAÑO [employer] UNDERWRITER Oct 08, 2018 22:35 TEREZA MARIE MD Oct 14, 2018 07:49
[2018-10-08] MEDS ORDERED: TRAM50TA PO (23:52)
[2018-10-08] MEDS ORDERED: SULF1TAB24 PO (23:52)
[2018-10-09] MEDS ORDERED: traMADol 50 MG TABLET PO ONE
[2018-10-09] MEDS ORDERED: HEPARIN PF 500 UNIT/5 ML DISP.SYRIN. IV ONE ×2 (00:01→00:15)
[2018-10-09 00:29] VITALS: BP 113/65
[2018-10-14] MEDS ORDERED: SULF-143 PO (08:53)
[2018-10-14] MEDS ORDERED: OXYC5TAB4 PO (08:53)
== END 2018-10-09 00:30 | disposition home or self-care (01) ==
LOC: ER 18:45
DX: E10.65 Type 1 diabetes mellitus with hyperglycemia (principal); R11.2 Nausea with vomiting, unspecified; R10.32 Left lower quadrant pain; N39.0 Urinary tract infection, site not specified; R19.7 Diarrhea, unspecified; Z88.0 Allergy status to penicillin; Z88.8 Allergy status to other drugs, medicaments and biological substances; Z88.5 Allergy status to narcotic agent; Z88.1 Allergy status to other antibiotic agents; Z91.041 Radiographic dye allergy status
CPT/HCPCS: 36415; 51702; 74176; 80053; 81001; 81025; 82962; 83735; 85025; 96361; 96374; 96375; 96376; 99284; J0780; J1815; J1885; J2270; J2405; J7030

== ENCOUNTER 2018-10-10 23:37 | Inpatient (IN) | payer SELFPAY ==
[~2018-10-10] VITALS: Ht 170.2 cm; Wt 90.7 kg
--- NOTE | 2018-10-11 01:38 | PHYS DOC ---
Past Medical History Past Medical History: Diabetes-Type I, Ovarian Cyst Additional Past Medical Histor: neuropathy,ovarian cyst,VENTRAL HERNIA, hyperglycemia,D&C, L leg clot Past Surgical History: Other Additional Past Surgical Histo: R fallopian, L ovary cyst removed,HERNIA REPAIR , I&D L ARM, left thumb amp Alcohol Use: None Drug Use: None Adult General Chief Complaint Chief Complaint: PAIN ON URINATION [facility] HPI Patient is a 27 year [id number] female presents with chief complaint of nausea vomiting and lower abdominal discomfort that radiates to bilateral flank. Patient states she was seen here on Wednesday night-- Dx with urinary tract infection and placed on Bactrim and pain medications. Since discharge her symptoms have continued and progressively become worse. Patient has had multiple episodes of nausea and vomiting and states she has been unable to keep her medications down. She states she has urinary urgency but denies any dysuria. Patient states her blood sugars have been running high greater than 600. Was seen at PCP today--- removed a millan cath that was placed in the ER on Wednesday and was also prescribed levaquin. Review of Systems Review of Systems Constitutional: Denies fever or chills [] Eyes: Denies change in visual acuity, redness, or eye pain [] HENT: Denies nasal congestion or sore throat [] Respiratory: Denies cough or shortness of breath [] Cardiovascular: No additional information not addressed in HPI [] GI: Denies abdominal pain,, bloody stools or diarrhea [positive nausea and vomiting] : Denies dysuria or hematuria [positive urinary urgency] Musculoskeletal: positive flank pain Integument: Denies rash or skin lesions [] Neurologic: Denies headache, focal weakness or sensory changes [] Endocrine: Denies polyuria or polydipsia [positive hyperglycemia] All other systems were reviewed and found to be within normal limits, except as documented in this note. Current Medications Current Medications Current Medications Medications (Trade) Dose Ordered Sig/Naya Start Time Stop Time Status Last Admin Dose Admin Ceftriaxone Sodium (Rocephin) 1 gm 1X ONCE 10/11/18 04:30 10/11/18 04:31 DC 10/11/18 04:48 1 GM Insulin Human Regular (HumuLIN R VIAL) 10 unit 1X ONCE 10/11/18 02:15 10/11/18 02:16 DC 10/11/18 02:15 10 UNIT Ketorolac Tromethamine (Toradol 30mg Vial) 30 mg 1X ONCE 10/11/18 02:30 10/11/18 02:31 DC 10/11/18 02:15 30 MG Morphine Sulfate (Morphine Sulfate) 4 mg STK-MED ONCE 10/11/18 05:03 10/11/18 05:04 DC Ondansetron HCl (Zofran) 4 mg 1X ONCE 10/11/18 03:30 10/11/18 03:31 DC 10/11/18 03:30 4 MG Sodium Chloride 1,000 ml @ 1,000 mls/hr 1X ONCE 10/11/18 04:15 10/11/18 05:14 DC 10/11/18 04:15 1,000 MLS/HR Allergies Allergies Allergies Coded Allergies Type Severity Reaction Last Updated Verified Penicillins Allergy Severe ANAPHYLAXIS, cefepime ok 11/12/16 Yes doxycycline Allergy Intermediate 11/12/16 Yes fentanyl Allergy Intermediate 11/12/16 Yes I S O L A T I O N *CONTACT* Allergy Unknown 08/12/18 Yes hydrocodone Adverse Reaction Intermediate itching 11/12/16 Yes cefepime Adverse Reaction Mild "makes her feel sick" 07/08/18 Yes Physical Exam Physical Exam Constitutional: Well developed, well nourished, no acute distress, non-toxic appearance. [] HENT: Normocephalic, atraumatic, bilateral external ears normal, oropharynx moist, no oral exudates, nose normal. [] Eyes: PERRLA, EOMI, conjunctiva normal, no discharge. [] Neck: Normal range of motion, no tenderness, supple, no stridor. [] Cardiovascular:Heart rate regular rhythm, no murmur [] Lungs & Thorax: Bilateral breath sounds clear to auscultation [] Abdomen: Bowel sounds normal, soft, no tenderness, no masses, no pulsatile masses. [] Skin: Warm, dry, no erythema, no rash. [] Back: No tenderness, no CVA tenderness. [] Extremities: No tenderness, no cyanosis, no clubbing, ROM intact, no edema. [] Neurologic: Alert and oriented X 3, normal motor function, normal sensory function, no focal deficits noted. [] Psychologic: Affect normal, judgement normal, mood normal. [] Current Patient Data Vital Signs Vital Signs Date Time Temp Pulse Resp B/P (MAP) Pulse Ox O2 Delivery O2 Flow Rate FiO2 10/11/18 04:00 18 129/92 (104) 95 Room Air 10/11/18 03:34 111 10/11/18 00:30 98.2 98.2 Lab Values Laboratory Tests Test 10/11/18 00:55 10/11/18 03:20 10/11/18 03:30 10/11/18 05:10 White Blood Count 5.7 x10^3/uL (4.0-11.0) Red Blood Count 4.43 x10^6/uL (3.50-5.40) Hemoglobin 11.0 g/dL (12.0-15.5) L Hematocrit 34.4 % (36.0-47.0) L Mean Corpuscular Volume 78 fL (79-100) L Mean Corpuscular Hemoglobin 25 pg (25-35) Mean Corpuscular Hemoglobin Concent 32 g/dL (31-37) Red Cell Distribution Width 17.1 % (11.5-14.5) H Platelet Count 244 x10^3/uL (140-400) Neutrophils (%) (Auto) 60 % (31-73) Lymphocytes (%) (Auto) 33 % (24-48) Monocytes (%) (Auto) 6 % (0-9) Eosinophils (%) (Auto) 0 % (0-3) Basophils (%) (Auto) 0 % (0-3) Neutrophils # (Auto) 3.4 x10^3uL (1.8-7.7) Lymphocytes # (Auto) 1.9 x10^3/uL (1.0-4.8) Monocytes # (Auto) 0.4 x10^3/uL (0.0-1.1) Eosinophils # (Auto) 0.0 x10^3/uL (0.0-0.7) Basophils # (Auto) 0.0 x10^3/uL (0.0-0.2) Sodium Level 133 mmol/L (136-145) L Potassium Level 4.1 mmol/L (3.5-5.1) Chloride Level 96 mmol/L (98-107) L Carbon Dioxide Level 26 mmol/L (21-32) Anion Gap 11 (6-14) Blood Urea Nitrogen 6 mg/dL (7-20) L Creatinine 0.9 mg/dL (0.6-1.0) Estimated GFR (Cockcroft-Gault) 74.0 BUN/Creatinine Ratio 7 (6-20) Glucose Level 519 mg/dL (70-99) *H Calcium Level 8.8 mg/dL (8.5-10.1) Total Bilirubin 0.4 mg/dL (0.2-1.0) Aspartate Amino Transferase (AST) 34 U/L (15-37) Alanine Aminotransferase (ALT) 41 U/L (14-59) Alkaline Phosphatase 466 U/L (46-116) H Total Protein 7.6 g/dL (6.4-8.2) Albumin 3.2 g/dL (3.4-5.0) L Albumin/Globulin Ratio 0.7 (1.0-1.7) L Glucose (Fingerstick) 380 mg/dL (70-99) H 407 mg/dL (70-99) H Urine Collection Type Unknown Urine Color Yellow Urine Clarity Cloudy Urine pH 6.5 Urine Specific [place] >=1.030 Urine Protein Negative mg/dL (NEG-TRACE) Urine Glucose (UA) >=1000 mg/dL (NEG) Urine Ketones (Stick) Negative mg/dL (NEG) Urine Blood Large (NEG) Urine Nitrite Positive (NEG) Urine Bilirubin Negative (NEG) Urine Urobilinogen Dipstick 0.2 mg/dL (0.2 mg/dL) Urine Leukocyte Esterase Moderate (NEG) Urine RBC Tntc /HPF (0-2) Urine WBC Tntc /HPF (0-4) Urine Squamous Epithelial Cells Few /LPF Urine Bacteria Many /HPF (0-FEW) Laboratory Tests 10/11/18 00:55 Laboratory Tests 10/11/18 00:55 EKG EKG [] Radiology/Procedures Radiology/Procedures [] Course & Med Decision Making Course & Med Decision Making Pertinent Labs and Imaging studies reviewed. (See chart for details) []Patient was evaluated for chief complaint. Workup consisted of laboratory analysis. His old reviewed and discussed with patient. Patient's urine urinary tract infection. Patient was previously taking bactrim but was evaluated by her primary care physician today who removed an indwelling Millan and placed her on Levaquin. Patient's treatment in the emergency department included Rocephin, 2 L of IV fluids, and insulin 10 units subcutaneous. Patient's pain was initially treated with Toradol without any improvement. Patient was then treated with 4 mg morphine with improvement. Patient tolerated by mouth. Discussion with patient-- she states she does not feel like she can go home. She is concerned about not able to keep her medications down. Will admit for hyperglycemia and failed outpatient therapy for UTI. Dragon Disclaimer Dragon Disclaimer This electronic medical record was generated, in whole or in part, using a voice recognition dictation system. Departure Departure Impression: Primary Impression: UTI (lower urinary tract infection) Additional Impressions: Acute pyelonephritis Elevated blood sugar Disposition: ADMITTED INPATIENT Admitting Physician: Other (Isabela) Condition: STABLE Referrals: NO PCP (PCP) Problem Qualifiers LATONYA FERRERA DO Oct 11, 2018 01:38
[2018-10-11 01:42] LABS: BASO % 0 % (0-3); EOS % 0 % (0-3); HEMATOCRIT 34.4 % (36.0-47.0); LYMPH # 1.9 x10^3/uL (1.0-4.8); LYMPH % 33 % (24-48); MEAN CORPUSCULAR HEMOGLOBIN 25 pg (25-35); MEAN CORPUSCULAR HGB CONC 32 g/dL (31-37); MEAN CORPUSCULAR VOLUME 78 fL (79-100); MONO # 0.4 x10^3/uL (0.0-1.1); MONO % 6 % (0-9); NEUT # 3.4 x10^3uL (1.8-7.7); NEUT % 60 % (31-73); PLATELET COUNT 244 x10^3/uL (140-400); RED BLOOD COUNT 4.43 x10^6/uL (3.50-5.40); RED CELL DISTRIBUTION WIDTH 17.1 % (11.5-14.5); WHITE BLOOD COUNT 5.7 x10^3/uL (4.0-11.0)
[2018-10-11] MEDS ORDERED: IV NORMAL SALINE 1000ML BAG 1,000 ML IV ONE ×3 (01:45→04:15)
[2018-10-11 02:04] LABS: ALBUMIN 3.2 g/dL (3.4-5.0); ALBUMIN/GLOBULIN RATIO 0.7 (1.0-1.7); CALCIUM 8.8 mg/dL (8.5-10.1); CREATININE 0.9 mg/dL (0.6-1.0); POTASSIUM 4.1 mmol/L (3.5-5.1); TOTAL BILIRUBIN 0.4 mg/dL (0.2-1.0); TOTAL PROTEIN 7.6 g/dL (6.4-8.2)
[2018-10-11] MEDS ORDERED: INSULIN REGULAR 100 UNIT/ML 3ML VIAL. IV ONE (02:15)
[2018-10-11] MEDS ORDERED: KETOROLAC 30 MG/ML VIAL. IV ONE (02:30)
[2018-10-11] MEDS ORDERED: ONDANSETRON PF 4 MG/2 ML VIAL. IM ONE (03:15)
[2018-10-11] MEDS ORDERED: ONDANSETRON PF 4 MG/2 ML VIAL. IV ONE (03:30)
[2018-10-11 03:42] LABS: BILIRUBIN,URINE NEGATIVE (NEG); CLARITY,URINE CLOUDY; COLOR,URINE YELLOW; NITRITE,URINE POSITIVE (NEG); PH,URINE 6.5; PROTEIN,URINE NEGATIVE (NEG-TRACE); UROBILINOGEN,URINE 0.2 mg/dL (0.2 mg/dL)
[2018-10-11 03:49] LABS: BACTERIA,URINE MANY /HPF (0-FEW); RBC,URINE TNTC /HPF (0-2); SQUAMOUS EPITHELIAL CELL,UR FEW /LPF; WBC,URINE TNTC /HPF (0-4)
[2018-10-11] MEDS ORDERED: cefTRIAXone IV Push 1 GM VIAL. IVP ONE (04:30)
[2018-10-11] MEDS ORDERED: MORPHINE SULFATE 4 MG/ML VIAL. ONE (05:03)
[2018-10-11] MEDS ORDERED: MORPHINE SULFATE 4 MG/ML VIAL. IV ONE (05:15)
[2018-10-11] MEDS ORDERED: ONDANSETRON PF 4 MG/2 ML VIAL. IV PRN (05:30)
--- NOTE | 2018-10-11 06:44 | NUR ---
Pt arrived to the unit at approximately 0635 from the ED via w/c. This RN situated pt in room and patient care packet was explained and given to pt. Will pass report onto day shift RN to complete admission questions.
[2018-10-11 07:00] VITALS: BP 131/92
[2018-10-11] MEDS ORDERED: cefTRIAXone IV Push 1 GM VIAL. IVP SCH (09:00)
[2018-10-11] MEDS ORDERED: DEXTROSE 50% 25 GM / 50ML DISP.SYRIN. IV PRN (09:15)
[2018-10-11] MEDS: ONDANSETRON PF 4 MG/2 ML VIAL. IV PRN ×2 (09:17→23:35)
[2018-10-11] MEDS: oxyCODONE IR 5 MG TABLET PO PRN ×3 (09:18→23:35)
--- NOTE | 2018-10-11 09:39 | NUR ---
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 Pt to be in contact precautions until there are 2 negative urine cultures without antibiotics and no open wounds.
[2018-10-11] MEDS: ASPIRIN 325 MG TABLET PO SCH (10:00)
[2018-10-11] MEDS: LACTOBACILLUS RHAMNOSUS GG 1 CAPSULE. PO SCH ×2 (10:00→21:00)
[2018-10-11 11:00] VITALS: BP 126/76
[2018-10-11] MEDS: INSULIN LISPRO 300 UNITS/3 ML INSULN.PEN. SQ SCH ×4 (12:14→17:00)
--- NOTE | 2018-10-11 12:15 | NUR ---
Refused ASA and Lactobacilius, gave 4 units sliding scale d/t pt not wanting to eat lunch.
--- NOTE | 2018-10-11 12:57 | PDOC1 ---
History and Physical Date of Admission Date of Admission DATE: 10/11/18 TIME: 12:51 Identification/Chief Complaint Chief Complaint Nausea vomiting or abdominal pain Source Source: Caregiver, Chart review, Patient History of Present Illness History of Present Illness 27-year-old white female, frequent flyer, known to the hospital, another episode of cyclic vomiting and this time an element of HONK with a blood sugar > 500 on admission. She is still Puky, yellow emesis on the basin and on the floor. Also UTI, treated outpatient with Bactrim and another antibiotic but clearly failure still UTI on UA. Penicillin allergy and she claims anaphylaxis. Still emesis on liquid diet. Blood sugar much better after intervention. I did resume her home regimen which is 30 units 3 times a day with meals and another hefty dose long-acting during the nights. Still not eating much, and also being treated for UTI and awaiting urine cultures She was on Zyvox for some wound dehischence in the past, abd area Past Medical History Cardiovascular: HTN Psych: Anxiety Rheumatologic: No pertinent hx Endocrine: Diabetes, Other Past Surgical History Past Surgical History: Appendectomy, Cholecystectomy, , Hernia Repair , Other Family History Family History: Hypertension, Other Family History: Parent Social History Smoke: No ALCOHOL: none Drugs: None Current Problem List Problem List Problems Medical Problems: (1) Acute pyelonephritis Status: Acute (2) Elevated blood sugar Status: Acute (3) UTI (lower urinary tract infection) Status: Acute Current Medications Current Medications Current Medications Sodium Chloride 1,000 ml @ 1,000 mls/hr 1X ONCE IV Last administered on at 01:45; Start 10/11/18 at 01:45; Stop 10/11/18 at 02:44; Status DC Insulin Human Regular (HumuLIN R VIAL) 10 unit 1X ONCE IV Last administered on 10/11/18at 02:15; Start 10/11/18 at 02:15; Stop 10/11/18 at 02:16; Status DC Sodium Chloride 1,000 ml @ 1,000 mls/hr 1X ONCE IV Last administered on at 03:00; Start 10/11/18 at 02:15; Stop 10/11/18 at 03:14; Status DC Ketorolac Tromethamine (Toradol 30mg Vial) 30 mg 1X ONCE IV Last administered on 10/11/18at 02:15; Start 10/11/18 at 02:30; Stop 10/11/18 at 02:31; Status DC Ondansetron HCl (Zofran) 4 mg 1X ONCE IM ; Start 10/11/18 at 03:15; Stop at 03:16; Status DC Ondansetron HCl (Zofran) 4 mg 1X ONCE IV Last administered on 10/11/18at 03:30 ; Start 10/11/18 at 03:30; Stop 10/11/18 at 03:31; Status DC Sodium Chloride 1,000 ml @ 1,000 mls/hr 1X ONCE IV Last administered on at 04:15; Start 10/11/18 at 04:15; Stop 10/11/18 at 05:14; Status DC Ceftriaxone Sodium (Rocephin) 1 gm 1X ONCE IVP Last administered on 10/11/18at 04:48; Start 10/11/18 at 04:30; Stop 10/11/18 at 04:31; Status DC Morphine Sulfate (Morphine Sulfate) 2 mg 1X ONCE IV Last administered on at 05:21; Start 10/11/18 at 05:15; Stop 10/11/18 at 05:17; Status DC Morphine Sulfate (Morphine Sulfate) 4 mg STK-MED ONCE .ROUTE ; Start 10/11/18 at 05:03; Stop 10/11/18 at 05:04; Status DC Ondansetron HCl (Zofran) 4 mg PRN Q8HRS PRN IV NAUSEA/VOMITING; Start 10/11/18 at 05:30; Stop 10/11/18 at 09:01; Status DC Ondansetron HCl (Zofran) 4 mg PRN Q6HRS PRN IV NAUSEA/VOMITING Last administered on 10/11/18at 09:17; Start 10/11/18 at 09:15 Ceftriaxone Sodium (Rocephin) 1 gm Q24H IVP ; Start 10/11/18 at 09:00; Stop 07/20 at 09:05; Status DC Aspirin (Ana Cristina Aspirin) 325 mg DAILY08 PO ; Start 10/11/18 at 10:00 Ferrous Sulfate (Feosol) 325 mg BIDWMEALS PO ; Start 10/11/18 at 17:00 Insulin Glargine (Lantus) 80 units Q12HR SQ ; Start 10/11/18 at 21:00 Lactobacillus Rhamnosus (Culturelle) 1 cap BID PO ; Start 10/11/18 at 10:00 Oxycodone HCl (Roxicodone) 10 mg PRN Q6HRS PRN PO SEVERE PAIN Last administered on 10/11/18at 09:18; Start 10/11/18 at 09:15 Tramadol HCl (Ultram) 50 mg PRN Q6HRS PRN PO PAIN MILD; Start 10/11/18 at 09:15 Insulin Human Lispro (HumaLOG) 30 units TIDWMEALS SQ Last administered on at 12:14; Start 10/11/18 at 12:00 Quetiapine Fumarate (SEROquel) 100 mg QHS PO ; Start 10/11/18 at 21:00 Insulin Human Lispro (HumaLOG) 0-9 UNITS TIDWMEALS SQ Last administered on 10/11at 12:14; Start 10/11/18 at 12:00 Dextrose (Dextrose 50%-Water Syringe) 12.5 gm PRN Q15MIN PRN IV SEE COMMENTS; Start 10/11/18 at 09:15 Ceftriaxone Sodium (Rocephin) 1 gm Q24H IVP ; Start 10/12/18 at 09:00 Active Scripts Active Tramadol Hcl 50 Mg Tablet 50 Mg PO Q6HRS PRN 3 Days Bactrim Ds Tablet (Sulfamethoxazole/Trimethoprim) 1 Each Tablet 1 Tab PO BID Culturelle (Lactobacillus Rhamnosus Gg) 1 Each Cap.sprink 1 Cap PO BID 14 Days Oxycodone Hcl Immed.release (Oxycodone Hcl) 5 Mg Tablet 10 Mg PO PRN Q6HRS PRN 10 Days Zyvox (Linezolid) 600 Mg Tablet 600 Mg PO BID 10 Days Levaquin (Levofloxacin) 500 Mg Tablet 500 Mg PO DAILY06 10 Days Reported Aspirin 325 Mg Tablet 1 Tab PO DAILY Seroquel (Quetiapine Fumarate) 100 Mg Tablet 1 Tab PO QHS Ferrous Sulfate 325 Mg Tablet 325 Mg PO BID Humalog (Insulin Lispro) 100 Unit/1 Ml Cartridge 30 Unit SQ TIDWMEALS Lantus Solostar (Insulin Glargine,Hum.rec.anlog) 100 Unit/1 Ml Insuln.pen 80 Unit SQ Q12HR Allergies Allergies: Coded Allergies: Penicillins (Verified Allergy, Severe, ANAPHYLAXIS, cefepime ok, 11/12/16) doxycycline (Verified Allergy, Intermediate, 11/12/16) fentanyl (Verified Allergy, Intermediate, 11/12/16) I S O L A T I O N *CONTACT* (Verified Allergy, Unknown, 08/12/18) VRE hydrocodone (Verified Adverse Reaction, Intermediate, itching, 11/12/16) cefepime (Verified Adverse Reaction, Mild, "makes her feel sick", 07/08/18) ROS Review of System As per HPI, rest. ROS 14 point neg Physical Exam General: Alert, Oriented X3, Cooperative, No acute distress HEENT: Atraumatic, PERRLA, EOMI Lungs: Clear to auscultation, Normal air movement Heart: S1S2, RRR, no thrills, no rubs, no gallops, no murmurs Cardiovascular: S1, S2 Breasts: Normal, Rt breast nml w/o mass, Lt breast nml w/o mass, Nipples normal Abdomen: Soft, Other (hyperactive bowel sounds) Rectal Exam: not examined PELVIC: Nml ext genitalia Extremities: No clubbing, No cyanosis, No edema, Normal pulses, No tenderness/ swelling Skin: No rashes, No breakdown, No significant lesion Neuro: Normal gait, Normal speech, Strength at 5/5 X4 ext, Normal tone, Sensation intact, Cranial nerves 3-12 NL, Reflexes 2+ Psych/Mental Status: Mental status NL, Mood NL Vitals Vitals Vital Signs Date Time Temp Pulse Resp B/P (MAP) Pulse Ox O2 Delivery O2 Flow Rate FiO2 10/11/18 11:00 98.2 101 18 126/76 (93) 92 98.2 10/11/18 10:18 Room Air Labs Labs Laboratory Tests Test 10/11/18 00:55 10/11/18 03:20 10/11/18 03:30 10/11/18 05:10 White Blood Count 5.7 x10^3/uL (4.0-11.0) Red Blood Count 4.43 x10^6/uL (3.50-5.40) Hemoglobin 11.0 g/dL (12.0-15.5) Hematocrit 34.4 % (36.0-47.0) Mean Corpuscular Volume 78 fL (79-100) Mean Corpuscular Hemoglobin 25 pg (25-35) Mean Corpuscular Hemoglobin Concent 32 g/dL (31-37) Red Cell Distribution Width 17.1 % (11.5-14.5) Platelet Count 244 x10^3/uL (140-400) Neutrophils (%) (Auto) 60 % (31-73) Lymphocytes (%) (Auto) 33 % (24-48) Monocytes (%) (Auto) 6 % (0-9) Eosinophils (%) (Auto) 0 % (0-3) Basophils (%) (Auto) 0 % (0-3) Neutrophils # (Auto) 3.4 x10^3uL (1.8-7.7) Lymphocytes # (Auto) 1.9 x10^3/uL (1.0-4.8) Monocytes # (Auto) 0.4 x10^3/uL (0.0-1.1) Eosinophils # (Auto) 0.0 x10^3/uL (0.0-0.7) Basophils # (Auto) 0.0 x10^3/uL (0.0-0.2) Sodium Level 133 mmol/L (136-145) Potassium Level 4.1 mmol/L (3.5-5.1) Chloride Level 96 mmol/L (98-107) Carbon Dioxide Level 26 mmol/L (21-32) Anion Gap 11 (6-14) Blood Urea Nitrogen 6 mg/dL (7-20) Creatinine 0.9 mg/dL (0.6-1.0) Estimated GFR (Cockcroft-Gault) 74.0 BUN/Creatinine Ratio 7 (6-20) Glucose Level 519 mg/dL (70-99) Calcium Level 8.8 mg/dL (8.5-10.1) Total Bilirubin 0.4 mg/dL (0.2-1.0) Aspartate Amino Transf (AST/SGOT) 34 U/L (15-37) Alanine Aminotransferase (ALT/SGPT) 41 U/L (14-59) Alkaline Phosphatase 466 U/L (46-116) Total Protein 7.6 g/dL (6.4-8.2) Albumin 3.2 g/dL (3.4-5.0) Albumin/Globulin Ratio 0.7 (1.0-1.7) Glucose (Fingerstick) 380 mg/dL (70-99) 407 mg/dL (70-99) Urine Collection Type Unknown Urine Color Yellow Urine Clarity Cloudy Urine pH 6.5 Urine Specific [place] >=1.030 Urine Protein Negative mg/dL (NEG-TRACE) Urine Glucose (UA) >=1000 mg/dL (NEG) Urine Ketones (Stick) Negative mg/dL (NEG) Urine Blood Large (NEG) Urine Nitrite Positive (NEG) Urine Bilirubin Negative (NEG) Urine Urobilinogen Dipstick 0.2 mg/dL (0.2 mg/dL) Urine Leukocyte Esterase Moderate (NEG) Urine RBC Tntc /HPF (0-2) Urine WBC Tntc /HPF (0-4) Urine Squamous Epithelial Cells Few /LPF Urine Bacteria Many /HPF (0-FEW) Test 10/11/18 07:12 10/11/18 11:13 Glucose (Fingerstick) 333 mg/dL (70-99) 284 mg/dL (70-99) Laboratory Tests Test 10/11/18 00:55 10/11/18 03:20 10/11/18 03:30 10/11/18 05:10 White Blood Count 5.7 x10^3/uL (4.0-11.0) Red Blood Count 4.43 x10^6/uL (3.50-5.40) Hemoglobin 11.0 g/dL (12.0-15.5) Hematocrit 34.4 % (36.0-47.0) Mean Corpuscular Volume 78 fL (79-100) Mean Corpuscular Hemoglobin 25 pg (25-35) Mean Corpuscular Hemoglobin Concent 32 g/dL (31-37) Red Cell Distribution Width 17.1 % (11.5-14.5) Platelet Count 244 x10^3/uL (140-400) Neutrophils (%) (Auto) 60 % (31-73) Lymphocytes (%) (Auto) 33 % (24-48) Monocytes (%) (Auto) 6 % (0-9) Eosinophils (%) (Auto) 0 % (0-3) Basophils (%) (Auto) 0 % (0-3) Neutrophils # (Auto) 3.4 x10^3uL (1.8-7.7) Lymphocytes # (Auto) 1.9 x10^3/uL (1.0-4.8) Monocytes # (Auto) 0.4 x10^3/uL (0.0-1.1) Eosinophils # (Auto) 0.0 x10^3/uL (0.0-0.7) Basophils # (Auto) 0.0 x10^3/uL (0.0-0.2) Sodium Level 133 mmol/L (136-145) Potassium Level 4.1 mmol/L (3.5-5.1) Chloride Level 96 mmol/L (98-107) Carbon Dioxide Level 26 mmol/L (21-32) Anion Gap 11 (6-14) Blood Urea Nitrogen 6 mg/dL (7-20) Creatinine 0.9 mg/dL (0.6-1.0) Estimated GFR (Cockcroft-Gault) 74.0 BUN/Creatinine Ratio 7 (6-20) Glucose Level 519 mg/dL (70-99) Calcium Level 8.8 mg/dL (8.5-10.1) Total Bilirubin 0.4 mg/dL (0.2-1.0) Aspartate Amino Transf (AST/SGOT) 34 U/L (15-37) Alanine Aminotransferase (ALT/SGPT) 41 U/L (14-59) Alkaline Phosphatase 466 U/L (46-116) Total Protein 7.6 g/dL (6.4-8.2) Albumin 3.2 g/dL (3.4-5.0) Albumin/Globulin Ratio 0.7 (1.0-1.7) Glucose (Fingerstick) 380 mg/dL (70-99) 407 mg/dL (70-99) Urine Collection Type Unknown Urine Color Yellow Urine Clarity Cloudy Urine pH 6.5 Urine Specific [place] >=1.030 Urine Protein Negative mg/dL (NEG-TRACE) Urine Glucose (UA) >=1000 mg/dL (NEG) Urine Ketones (Stick) Negative mg/dL (NEG) Urine Blood Large (NEG) Urine Nitrite Positive (NEG) Urine Bilirubin Negative (NEG) Urine Urobilinogen Dipstick 0.2 mg/dL (0.2 mg/dL) Urine Leukocyte Esterase Moderate (NEG) Urine RBC Tntc /HPF (0-2) Urine WBC Tntc /HPF (0-4) Urine Squamous Epithelial Cells Few /LPF Urine Bacteria Many /HPF (0-FEW) Test 10/11/18 07:12 10/11/18 11:13 Glucose (Fingerstick) 333 mg/dL (70-99) 284 mg/dL (70-99) VTE Prophylaxis Ordered VTE Prophylaxis Devices: Yes VTE Pharmacological Prophylaxi: Yes Assessment/Plan Assessment/Plan cyclic vomiting syndrome episode HON K, POA resolved Diabetes type 1 on hefty doses insulin Obesity, BMI 31.3 Mild hypokalemia secondary to GI loss AK I [facility] Center GI loss Mild PCM Penicillin allergy-anaphylaxis UTI NArc tolerance PLAN: Keep liq Diet for now Trial of Reglan and other antinausea meds ADA T once less puky I have reconciled home meds including hefty doses insulin Recheck hemoglobin A1c Might be a component of gastroparesis and cyclic vomiting Replace K as needed dw her- agrees HIRAL EATON MD Oct 11, 2018 12:57
[2018-10-11] MEDS: IV NORMAL SALINE 1000ML BAG 1,000 ML IV SCH ×2 (13:45→23:51)
--- NOTE | 2018-10-11 14:46 | NUR ---
SW following pt for anticipated dc needs. Chart reviewed. Pt lives at home and no SW needs noted at this time. Will continue to evaluate dc needs.
[2018-10-11 15:00] VITALS: BP 130/81
[2018-10-11] MEDS: FERROUS SULFATE 325 MG TABLET. PO SCH (17:07)
[2018-10-11] MEDS: METOCLOPRAMIDE 10 MG TABLET. PO SCH ×2 (17:07→21:13)
[2018-10-11 19:00] VITALS: BP 124/81
[2018-10-11] MEDS: INSULIN GLARGINE 300 UNITS/3 ML INSULN.PEN. SQ SCH (21:00)
[2018-10-11] MEDS: QUEtiapine 100 MG TABLET. PO SCH (21:13)
[2018-10-11 23:00] VITALS: BP 116/68
[2018-10-12 03:00] VITALS: BP 125/72
[2018-10-12 03:19] LABS: HEMOGLOBIN A1C 7.9 % (4.8-5.6)
[2018-10-12 07:00] VITALS: BP 99/59
[2018-10-12] MEDS: ASPIRIN 325 MG TABLET PO SCH (08:40)
[2018-10-12] MEDS: FERROUS SULFATE 325 MG TABLET. PO SCH ×2 (08:41→17:21)
[2018-10-12] MEDS: METOCLOPRAMIDE 10 MG TABLET. PO SCH ×4 (08:41→20:40)
[2018-10-12] MEDS: LACTOBACILLUS RHAMNOSUS GG 1 CAPSULE. PO SCH ×2 (08:41→20:40)
[2018-10-12] MEDS: oxyCODONE IR 5 MG TABLET PO PRN ×3 (08:42→21:28)
[2018-10-12] MEDS: IV NORMAL SALINE 1000ML BAG 1,000 ML IV SCH ×2 (08:47→20:40)
[2018-10-12] MEDS: INSULIN GLARGINE 300 UNITS/3 ML INSULN.PEN. SQ SCH ×2 (08:49→23:09)
[2018-10-12] MEDS: INSULIN LISPRO 300 UNITS/3 ML INSULN.PEN. SQ SCH ×6 (08:50→17:28)
[2018-10-12] MEDS ORDERED: cefTRIAXone IV Push 1 GM VIAL. IVP SCH (09:00)
[2018-10-12] MEDS ORDERED: ACETAMINOPHEN 500 MG TABLET PO PRN (10:15)
[2018-10-12 11:00] VITALS: BP 109/68
--- NOTE | 2018-10-12 13:19 | PDOC ---
PROGRESS NOTES Chief Complaint Chief Complaint cyclic vomiting syndrome episode HON Maria Fernanda, POA resolved Diabetes type 1 on hefty doses insulin Obesity, BMI 31.3 Mild hypokalemia secondary to GI loss AK I [facility] Center GI loss Mild PCM Penicillin allergy-anaphylaxis VRE UTI NArc tolerance History of Present Illness History of Present Illness Vomiting is better She is now eating a soft diet Fevers overnight, now she relays to me history of VRE UTI She was only getting Rocephin she Does complain of some dysuria and mild hematuria today Plan: Zyvox Monitor temps Still urine culture pending Consult ID Vitals Vitals Vital Signs Date Time Temp Pulse Resp B/P (MAP) Pulse Ox O2 Delivery O2 Flow Rate FiO2 10/12/18 11:00 98.6 102 16 109/68 (82) 95 Room Air 98.6 Physical Exam General: Alert, Oriented X3, Cooperative, No acute distress Lungs: Clear Abdomen: Soft, Other (hyperactive bowel sounds) Extremities: No clubbing, No cyanosis, No edema, Normal pulses, No tenderness/ swelling Skin: No rashes, No breakdown, No significant lesion Labs LABS Laboratory Tests Test 10/11/18 13:43 10/11/18 16:03 10/11/18 20:38 10/12/18 08:00 Glucose (Fingerstick) 150 mg/dL (70-99) 91 mg/dL (70-99) 114 mg/dL (70-99) 292 mg/dL (70-99) Test 10/12/18 11:34 Glucose (Fingerstick) 157 mg/dL (70-99) Review of Systems Review of Systems Dysuria, lower abdominal pain, mild hematuria, the rest of ROS negative Assessment and Plan Assessmemt and Plan Problems Medical Problems: (1) Acute pyelonephritis Status: Acute (2) Elevated blood sugar Status: Acute (3) UTI (lower urinary tract infection) Status: Acute Comment Review of Relevant I have reviewed the following items lizbeth (where applicable) has been applied. Labs Laboratory Tests Test 10/11/18 00:55 10/11/18 03:20 10/11/18 03:30 10/11/18 05:10 White Blood Count 5.7 x10^3/uL (4.0-11.0) Red Blood Count 4.43 x10^6/uL (3.50-5.40) Hemoglobin 11.0 g/dL (12.0-15.5) Hematocrit 34.4 % (36.0-47.0) Mean Corpuscular Volume 78 fL (79-100) Mean Corpuscular Hemoglobin 25 pg (25-35) Mean Corpuscular Hemoglobin Concent 32 g/dL (31-37) Red Cell Distribution Width 17.1 % (11.5-14.5) Platelet Count 244 x10^3/uL (140-400) Neutrophils (%) (Auto) 60 % (31-73) Lymphocytes (%) (Auto) 33 % (24-48) Monocytes (%) (Auto) 6 % (0-9) Eosinophils (%) (Auto) 0 % (0-3) Basophils (%) (Auto) 0 % (0-3) Neutrophils # (Auto) 3.4 x10^3uL (1.8-7.7) Lymphocytes # (Auto) 1.9 x10^3/uL (1.0-4.8) Monocytes # (Auto) 0.4 x10^3/uL (0.0-1.1) Eosinophils # (Auto) 0.0 x10^3/uL (0.0-0.7) Basophils # (Auto) 0.0 x10^3/uL (0.0-0.2) Sodium Level 133 mmol/L (136-145) Potassium Level 4.1 mmol/L (3.5-5.1) Chloride Level 96 mmol/L (98-107) Carbon Dioxide Level 26 mmol/L (21-32) Anion Gap 11 (6-14) Blood Urea Nitrogen 6 mg/dL (7-20) Creatinine 0.9 mg/dL (0.6-1.0) Estimated GFR (Cockcroft-Gault) 74.0 BUN/Creatinine Ratio 7 (6-20) Glucose Level 519 mg/dL (70-99) Hemoglobin A1c 7.9 % (4.8-5.6) Calcium Level 8.8 mg/dL (8.5-10.1) Total Bilirubin 0.4 mg/dL (0.2-1.0) Aspartate Amino Transf (AST/SGOT) 34 U/L (15-37) Alanine Aminotransferase (ALT/SGPT) 41 U/L (14-59) Alkaline Phosphatase 466 U/L (46-116) Total Protein 7.6 g/dL (6.4-8.2) Albumin 3.2 g/dL (3.4-5.0) Albumin/Globulin Ratio 0.7 (1.0-1.7) Glucose (Fingerstick) 380 mg/dL (70-99) 407 mg/dL (70-99) Urine Collection Type Unknown Urine Color Yellow Urine Clarity Cloudy Urine pH 6.5 Urine Specific [place] >=1.030 Urine Protein Negative mg/dL (NEG-TRACE) Urine Glucose (UA) >=1000 mg/dL (NEG) Urine Ketones (Stick) Negative mg/dL (NEG) Urine Blood Large (NEG) Urine Nitrite Positive (NEG) Urine Bilirubin Negative (NEG) Urine Urobilinogen Dipstick 0.2 mg/dL (0.2 mg/dL) Urine Leukocyte Esterase Moderate (NEG) Urine RBC Tntc /HPF (0-2) Urine WBC Tntc /HPF (0-4) Urine Squamous Epithelial Cells Few /LPF Urine Bacteria Many /HPF (0-FEW) Test 10/11/18 07:12 10/11/18 11:13 10/11/18 13:43 10/11/18 16:03 Glucose (Fingerstick) 333 mg/dL (70-99) 284 mg/dL (70-99) 150 mg/dL (70-99) 91 mg/dL (70-99) Test 10/11/18 20:38 10/12/18 08:00 10/12/18 11:34 Glucose (Fingerstick) 114 mg/dL (70-99) 292 mg/dL (70-99) 157 mg/dL (70-99) Laboratory Tests Test 10/11/18 13:43 10/11/18 16:03 10/11/18 20:38 10/12/18 08:00 Glucose (Fingerstick) 150 mg/dL (70-99) 91 mg/dL (70-99) 114 mg/dL (70-99) 292 mg/dL (70-99) Test 10/12/18 11:34 Glucose (Fingerstick) 157 mg/dL (70-99) Medications Current Medications Sodium Chloride 1,000 ml @ 1,000 mls/hr 1X ONCE IV Last administered on at 01:45; Start 10/11/18 at 01:45; Stop 10/11/18 at 02:44; Status DC Insulin Human Regular (HumuLIN R VIAL) 10 unit 1X ONCE IV Last administered on 10/11/18at 02:15; Start 10/11/18 at 02:15; Stop 10/11/18 at 02:16; Status DC Sodium Chloride 1,000 ml @ 1,000 mls/hr 1X ONCE IV Last administered on at 03:00; Start 10/11/18 at 02:15; Stop 10/11/18 at 03:14; Status DC Ketorolac Tromethamine (Toradol 30mg Vial) 30 mg 1X ONCE IV Last administered on 10/11/18at 02:15; Start 10/11/18 at 02:30; Stop 10/11/18 at 02:31; Status DC Ondansetron HCl (Zofran) 4 mg 1X ONCE IM ; Start 10/11/18 at 03:15; Stop at 03:16; Status DC Ondansetron HCl (Zofran) 4 mg 1X ONCE IV Last administered on 10/11/18at 03:30 ; Start 10/11/18 at 03:30; Stop 10/11/18 at 03:31; Status DC Sodium Chloride 1,000 ml @ 1,000 mls/hr 1X ONCE IV Last administered on at 04:15; Start 10/11/18 at 04:15; Stop 10/11/18 at 05:14; Status DC Ceftriaxone Sodium (Rocephin) 1 gm 1X ONCE IVP Last administered on 10/11/18at 04:48; Start 10/11/18 at 04:30; Stop 10/11/18 at 04:31; Status DC Morphine Sulfate (Morphine Sulfate) 2 mg 1X ONCE IV Last administered on at 05:21; Start 10/11/18 at 05:15; Stop 10/11/18 at 05:17; Status DC Morphine Sulfate (Morphine Sulfate) 4 mg STK-MED ONCE .ROUTE ; Start 10/11/18 at 05:03; Stop 10/11/18 at 05:04; Status DC Ondansetron HCl (Zofran) 4 mg PRN Q8HRS PRN IV NAUSEA/VOMITING; Start 10/11/18 at 05:30; Stop 10/11/18 at 09:01; Status DC Ondansetron HCl (Zofran) 4 mg PRN Q6HRS PRN IV NAUSEA/VOMITING Last administered on 10/11/18 23:35; Start 10/11/18 at 09:15 Ceftriaxone Sodium (Rocephin) 1 gm Q24H IVP ; Start 10/11/18 at 09:00; Stop 07/20 at 09:05; Status DC Aspirin (Ana Cristina Aspirin) 325 mg DAILY08 PO Last administered on 10/12/18 08:40 ; Start 10/11/18 at 10:00 Ferrous Sulfate (Feosol) 325 mg BIDWMEALS PO Last administered on 10/12/18 08: 41; Start 10/11/18 at 17:00 Insulin Glargine (Lantus) 80 units Q12HR SQ Last administered on 10/12/18 08: 49; Start 10/11/18 at 21:00 Lactobacillus Rhamnosus (Culturelle) 1 cap BID PO ; Start 10/11/18 at 10:00 Oxycodone HCl (Roxicodone) 10 mg PRN Q6HRS PRN PO SEVERE PAIN Last administered on 10/12/18 08:42; Start 10/11/18 at 09:15 Tramadol HCl (Ultram) 50 mg PRN Q6HRS PRN PO PAIN MILD; Start 10/11/18 at 09:15 Insulin Human Lispro (HumaLOG) 30 units TIDWMEALS SQ Last administered on 12:28; Start 10/11/18 at 12:00 Quetiapine Fumarate (SEROquel) 100 mg QHS PO Last administered on 10/11/18 21: 13; Start 10/11/18 at 21:00 Insulin Human Lispro (HumaLOG) 0-9 UNITS TIDWMEALS SQ Last administered on 10/12 12:29; Start 10/11/18 at 12:00 Dextrose (Dextrose 50%-Water Syringe) 12.5 gm PRN Q15MIN PRN IV SEE COMMENTS; Start 10/11/18 at 09:15 Ceftriaxone Sodium (Rocephin) 1 gm Q24H IVP Last administered on 10/12/18 08: 40; Start 10/12/18 at 09:00 Metoclopramide HCl (Reglan) 10 mg QIDACHS PO Last administered on 10/12/18at 12: 23; Start 10/11/18 at 16:30 Sodium Chloride 1,000 ml @ 100 mls/hr Q10H IV Last administered on 10/12/18at 08:47; Start 10/11/18 at 13:00 Acetaminophen (Tylenol) 500 mg PRN Q6HRS PRN PO MILD PAIN / TEMP; Start at 10:15 Active Scripts Active Tramadol Hcl 50 Mg Tablet 50 Mg PO Q6HRS PRN 3 Days Bactrim Ds Tablet (Sulfamethoxazole/Trimethoprim) 1 Each Tablet 1 Tab PO BID Culturelle (Lactobacillus Rhamnosus Gg) 1 Each Cap.sprink 1 Cap PO BID 14 Days Oxycodone Hcl Immed.release (Oxycodone Hcl) 5 Mg Tablet 10 Mg PO PRN Q6HRS PRN 10 Days Zyvox (Linezolid) 600 Mg Tablet 600 Mg PO BID 10 Days Levaquin (Levofloxacin) 500 Mg Tablet 500 Mg PO DAILY06 10 Days Reported Aspirin 325 Mg Tablet 1 Tab PO DAILY Seroquel (Quetiapine Fumarate) 100 Mg Tablet 1 Tab PO QHS Ferrous Sulfate 325 Mg Tablet 325 Mg PO BID Humalog (Insulin Lispro) 100 Unit/1 Ml Cartridge 30 Unit SQ TIDWMEALS Lantus Solostar (Insulin Glargine,Hum.rec.anlog) 100 Unit/1 Ml Insuln.pen 80 Unit SQ Q12HR Vitals/I & O Vital Sign - Last 24 Hours 10/11/18 10/11/18 10/11/18 10/11/18 15:00 17:08 18:08 19:00 Temp 98.3 98.9 98.3 98.9 Pulse 101 100 Resp 17 14 14 17 B/P (MAP) 130/81 (97) 124/81 (95) Pulse Ox 90 96 O2 Delivery Room Air 10/11/18 10/11/18 10/11/18 10/12/18 20:00 23:00 23:35 03:00 Temp 98.5 98.4 98.5 98.4 Pulse 98 101 Resp 17 18 B/P (MAP) 116/68 (84) 125/72 (89) Pulse Ox 95 90 95 O2 Delivery Room Air Room Air Room Air Room Air 10/12/18 10/12/18 10/12/18 10/12/18 07:00 08:00 08:42 10:41 Temp 100.1 100.1 Pulse 111 Resp 16 B/P (MAP) 99/59 (72) Pulse Ox 90 95 95 O2 Delivery Room Air Room Air Room Air Room Air 10/12/18 11:00 Temp 98.6 98.6 Pulse 102 Resp 16 B/P (MAP) 109/68 (82) Pulse Ox 95 O2 Delivery Room Air Intake and Output 10/11/18 10/11/18 10/12/18 14:59 22:59 06:59 Intake Total 380 ml 360 ml 520 ml Balance 380 ml 360 ml 520 ml HIRAL EATON MD Oct 12, 2018 13:19
[2018-10-12 15:00] VITALS: BP 123/62
[2018-10-12] MEDS: diazePAM 5 MG TABLET PO PRN (18:36)
[2018-10-12 19:00] VITALS: BP 124/68
[2018-10-12] MEDS: traMADol 50 MG TABLET PO PRN (20:39)
[2018-10-12] MEDS: QUEtiapine 100 MG TABLET. PO SCH (20:40)
[2018-10-12 23:00] VITALS: BP 118/79
[2018-10-13] MEDS: diazePAM 5 MG TABLET PO PRN ×2 (02:46→21:57)
[2018-10-13] MEDS: traMADol 50 MG TABLET PO PRN ×2 (02:46→21:57)
[2018-10-13 03:00] VITALS: BP 122/69
[2018-10-13] MEDS: oxyCODONE IR 5 MG TABLET PO PRN ×3 (03:26→17:54)
[2018-10-13] MEDS: METOCLOPRAMIDE 10 MG TABLET. PO SCH ×4 (05:49→21:58)
[2018-10-13] MEDS: IV NORMAL SALINE 1000ML BAG 1,000 ML IV SCH (05:50)
[2018-10-13 07:00] VITALS: BP 98/58
[2018-10-13 07:00] LABS: BASO % 0 % (0-3); EOS % 1 % (0-3); HEMATOCRIT 34.3 % (36.0-47.0); HEMOGLOBIN 11.1 g/dL (12.0-15.5); LYMPH # 1.7 x10^3/uL (1.0-4.8); LYMPH % 35 % (24-48); MEAN CORPUSCULAR HEMOGLOBIN 25 pg (25-35); MEAN CORPUSCULAR HGB CONC 32 g/dL (31-37); MEAN CORPUSCULAR VOLUME 78 fL (79-100); MONO # 0.4 x10^3/uL (0.0-1.1); MONO % 8 % (0-9); NEUT # 2.7 x10^3uL (1.8-7.7); NEUT % 56 % (31-73); PLATELET COUNT 258 x10^3/uL (140-400); RED BLOOD COUNT 4.43 x10^6/uL (3.50-5.40); RED CELL DISTRIBUTION WIDTH 17.9 % (11.5-14.5); WHITE BLOOD COUNT 4.8 x10^3/uL (4.0-11.0)
[2018-10-13] MEDS: INSULIN LISPRO 300 UNITS/3 ML INSULN.PEN. SQ SCH ×6 (08:00→18:08)
[2018-10-13] MEDS: ASPIRIN 325 MG TABLET PO SCH (08:00)
[2018-10-13] MEDS: LACTOBACILLUS RHAMNOSUS GG 1 CAPSULE. PO SCH ×2 (08:33→21:58)
[2018-10-13] MEDS: INSULIN GLARGINE 300 UNITS/3 ML INSULN.PEN. SQ SCH ×2 (08:42→22:07)
[2018-10-13] MEDS: FERROUS SULFATE 325 MG TABLET. PO SCH ×2 (08:45→17:54)
[2018-10-13 11:00] VITALS: BP 135/81
--- NOTE | 2018-10-13 11:46 | PDOC ---
PROGRESS NOTES Chief Complaint Chief Complaint cyclic vomiting syndrome episode HON Maria Fernanda, POA resolved Diabetes type 1 on hefty doses insulin Obesity, BMI 31.3 Mild hypokalemia secondary to GI loss AK I [facility] GI loss Mild PCM Penicillin allergy-anaphylaxis VRE UTI NArc tolerance History of Present Illness History of Present Illness Vomiting is better Last fever 10/12, she relays to me history of VRE UTI I Shifted to Zyvox from [facility] she Did complain of some dysuria and mild hematuria urine culture does verify Escherichia coli-sensitivity still pending Plan: cont Zyvox Monitor temps Still urine culture pending IVF to consume Vitals Vitals Vital Signs Date Time Temp Pulse Resp B/P (MAP) Pulse Ox O2 Delivery O2 Flow Rate FiO2 10/13/18 11:08 18 Room Air 10/13/18 07:00 98.5 93 98/58 (71) 94 98.5 Physical Exam General: Alert, Oriented X3, Cooperative, No acute distress Heart: Regular rate, Normal S1, Normal S2 Lungs: Clear Abdomen: Soft, Other (hyperactive bowel sounds) Extremities: No clubbing, No cyanosis, No edema, Normal pulses, No tenderness/ swelling Skin: No rashes, No breakdown, No significant lesion Labs LABS Laboratory Tests Test 10/12/18 16:35 10/12/18 21:24 10/13/18 06:35 10/13/18 08:19 Glucose (Fingerstick) 95 mg/dL (70-99) 158 mg/dL (70-99) 106 mg/dL (70-99) White Blood Count 4.8 x10^3/uL (4.0-11.0) Red Blood Count 4.43 x10^6/uL (3.50-5.40) Hemoglobin 11.1 g/dL (12.0-15.5) Hematocrit 34.3 % (36.0-47.0) Mean Corpuscular Volume 78 fL (79-100) Mean Corpuscular Hemoglobin 25 pg (25-35) Mean Corpuscular Hemoglobin Concent 32 g/dL (31-37) Red Cell Distribution Width 17.9 % (11.5-14.5) Platelet Count 258 x10^3/uL (140-400) Neutrophils (%) (Auto) 56 % (31-73) Lymphocytes (%) (Auto) 35 % (24-48) Monocytes (%) (Auto) 8 % (0-9) Eosinophils (%) (Auto) 1 % (0-3) Basophils (%) (Auto) 0 % (0-3) Neutrophils # (Auto) 2.7 x10^3uL (1.8-7.7) Lymphocytes # (Auto) 1.7 x10^3/uL (1.0-4.8) Monocytes # (Auto) 0.4 x10^3/uL (0.0-1.1) Eosinophils # (Auto) 0.0 x10^3/uL (0.0-0.7) Basophils # (Auto) 0.0 x10^3/uL (0.0-0.2) Test 10/13/18 11:38 Glucose (Fingerstick) 85 mg/dL (70-99) Review of Systems Review of Systems A 14 point ROS was completed with the following noted as positive: Other systems reviewed and negative. \CONSTITUTIONAL: No fever or chills EYES: No recent changes SKIN: No rash or itching CARDIOVASCULAR: No chest pain, syncope, palpitations, or edema RESPIRATORY: No SOB or cough GASTROINTESTINAL: No nausea, vomiting or abdominal pain NEUROLOGICAL: No headaches or weakness ENDOCRINE: No cold or heat intolerance GENITOURINARY: No urgency or frequency of urination MUSCULOSKELETAL: No back pain or joint pain LYMPHATICS: No enlarged lymph nodes PSYCHIATRIC: No anxiety or depression Assessment and Plan Assessmemt and Plan Problems Medical Problems: (1) Acute pyelonephritis Status: Acute (2) Elevated blood sugar Status: Acute (3) UTI (lower urinary tract infection) Status: Acute Comment Review of Relevant I have reviewed the following items lizbeth (where applicable) has been applied. Labs Laboratory Tests Test 10/11/18 13:43 10/11/18 16:03 10/11/18 20:38 10/12/18 08:00 Glucose (Fingerstick) 150 mg/dL (70-99) 91 mg/dL (70-99) 114 mg/dL (70-99) 292 mg/dL (70-99) Test 10/12/18 11:34 10/12/18 16:35 10/12/18 21:24 10/13/18 06:35 Glucose (Fingerstick) 157 mg/dL (70-99) 95 mg/dL (70-99) 158 mg/dL (70-99) White Blood Count 4.8 x10^3/uL (4.0-11.0) Red Blood Count 4.43 x10^6/uL (3.50-5.40) Hemoglobin 11.1 g/dL (12.0-15.5) Hematocrit 34.3 % (36.0-47.0) Mean Corpuscular Volume 78 fL (79-100) Mean Corpuscular Hemoglobin 25 pg (25-35) Mean Corpuscular Hemoglobin Concent 32 g/dL (31-37) Red Cell Distribution Width 17.9 % (11.5-14.5) Platelet Count 258 x10^3/uL (140-400) Neutrophils (%) (Auto) 56 % (31-73) Lymphocytes (%) (Auto) 35 % (24-48) Monocytes (%) (Auto) 8 % (0-9) Eosinophils (%) (Auto) 1 % (0-3) Basophils (%) (Auto) 0 % (0-3) Neutrophils # (Auto) 2.7 x10^3uL (1.8-7.7) Lymphocytes # (Auto) 1.7 x10^3/uL (1.0-4.8) Monocytes # (Auto) 0.4 x10^3/uL (0.0-1.1) Eosinophils # (Auto) 0.0 x10^3/uL (0.0-0.7) Basophils # (Auto) 0.0 x10^3/uL (0.0-0.2) Test 10/13/18 08:19 10/13/18 11:38 Glucose (Fingerstick) 106 mg/dL (70-99) 85 mg/dL (70-99) Laboratory Tests Test 10/12/18 16:35 10/12/18 21:24 10/13/18 06:35 10/13/18 08:19 Glucose (Fingerstick) 95 mg/dL (70-99) 158 mg/dL (70-99) 106 mg/dL (70-99) White Blood Count 4.8 x10^3/uL (4.0-11.0) Red Blood Count 4.43 x10^6/uL (3.50-5.40) Hemoglobin 11.1 g/dL (12.0-15.5) Hematocrit 34.3 % (36.0-47.0) Mean Corpuscular Volume 78 fL (79-100) Mean Corpuscular Hemoglobin 25 pg (25-35) Mean Corpuscular Hemoglobin Concent 32 g/dL (31-37) Red Cell Distribution Width 17.9 % (11.5-14.5) Platelet Count 258 x10^3/uL (140-400) Neutrophils (%) (Auto) 56 % (31-73) Lymphocytes (%) (Auto) 35 % (24-48) Monocytes (%) (Auto) 8 % (0-9) Eosinophils (%) (Auto) 1 % (0-3) Basophils (%) (Auto) 0 % (0-3) Neutrophils # (Auto) 2.7 x10^3uL (1.8-7.7) Lymphocytes # (Auto) 1.7 x10^3/uL (1.0-4.8) Monocytes # (Auto) 0.4 x10^3/uL (0.0-1.1) Eosinophils # (Auto) 0.0 x10^3/uL (0.0-0.7) Basophils # (Auto) 0.0 x10^3/uL (0.0-0.2) Test 10/13/18 11:38 Glucose (Fingerstick) 85 mg/dL (70-99) Microbiology 10/11/18 Urine Culture - Preliminary, Resulted 10/11/18 Urine Culture Result 1 (ROLY) - Preliminary, Resulted Medications Current Medications Sodium Chloride 1,000 ml @ 1,000 mls/hr 1X ONCE IV Last administered on at 01:45; Start 10/11/18 at 01:45; Stop 10/11/18 at 02:44; Status DC Insulin Human Regular (HumuLIN R VIAL) 10 unit 1X ONCE IV Last administered on 10/11/18at 02:15; Start 10/11/18 at 02:15; Stop 10/11/18 at 02:16; Status DC Sodium Chloride 1,000 ml @ 1,000 mls/hr 1X ONCE IV Last administered on at 03:00; Start 10/11/18 at 02:15; Stop 10/11/18 at 03:14; Status DC Ketorolac Tromethamine (Toradol 30mg Vial) 30 mg 1X ONCE IV Last administered on 10/11/18at 02:15; Start 10/11/18 at 02:30; Stop 10/11/18 at 02:31; Status DC Ondansetron HCl (Zofran) 4 mg 1X ONCE IM ; Start 10/11/18 at 03:15; Stop at 03:16; Status DC Ondansetron HCl (Zofran) 4 mg 1X ONCE IV Last administered on 10/11/18at 03:30 ; Start 10/11/18 at 03:30; Stop 10/11/18 at 03:31; Status DC Sodium Chloride 1,000 ml @ 1,000 mls/hr 1X ONCE IV Last administered on at 04:15; Start 10/11/18 at 04:15; Stop 10/11/18 at 05:14; Status DC Ceftriaxone Sodium (Rocephin) 1 gm 1X ONCE IVP Last administered on 10/11/18at 04:48; Start 10/11/18 at 04:30; Stop 10/11/18 at 04:31; Status DC Morphine Sulfate (Morphine Sulfate) 2 mg 1X ONCE IV Last administered on at 05:21; Start 10/11/18 at 05:15; Stop 10/11/18 at 05:17; Status DC Morphine Sulfate (Morphine Sulfate) 4 mg STK-MED ONCE .ROUTE ; Start 10/11/18 at 05:03; Stop 10/11/18 at 05:04; Status DC Ondansetron HCl (Zofran) 4 mg PRN Q8HRS PRN IV NAUSEA/VOMITING; Start 10/11/18 at 05:30; Stop 10/11/18 at 09:01; Status DC Ondansetron HCl (Zofran) 4 mg PRN Q6HRS PRN IV NAUSEA/VOMITING Last administered on 10/11/18at 23:35; Start 10/11/18 at 09:15 Ceftriaxone Sodium (Rocephin) 1 gm Q24H IVP ; Start 10/11/18 at 09:00; Stop 07/20 at 09:05; Status DC Aspirin (Ana Cristina Aspirin) 325 mg DAILY08 PO Last administered on 10/12/18at 08:40 ; Start 10/11/18 at 10:00 Ferrous Sulfate (Feosol) 325 mg BIDWMEALS PO Last administered on 10/13/18 08: 45; Start 10/11/18 at 17:00 Insulin Glargine (Lantus) 80 units Q12HR SQ Last administered on 10/13/18 08: 42; Start 10/11/18 at 21:00 Lactobacillus Rhamnosus (Culturelle) 1 cap BID PO Last administered on 20:40; Start 10/11/18 at 10:00 Oxycodone HCl (Roxicodone) 10 mg PRN Q6HRS PRN PO SEVERE PAIN Last administered on 10/13/18 11:08; Start 10/11/18 at 09:15 Tramadol HCl (Ultram) 50 mg PRN Q6HRS PRN PO PAIN MILD Last administered on 02:46; Start 10/11/18 at 09:15 Insulin Human Lispro (HumaLOG) 30 units TIDWMEALS SQ Last administered on 08:43; Start 10/11/18 at 12:00 Quetiapine Fumarate (SEROquel) 100 mg QHS PO Last administered on 10/12/18 20: 40; Start 10/11/18 at 21:00 Insulin Human Lispro (HumaLOG) 0-9 UNITS TIDWMEALS SQ Last administered on 10/12 12:29; Start 10/11/18 at 12:00 Dextrose (Dextrose 50%-Water Syringe) 12.5 gm PRN Q15MIN PRN IV SEE COMMENTS; Start 10/11/18 at 09:15 Ceftriaxone Sodium (Rocephin) 1 gm Q24H IVP Last administered on 10/12/18 08: 40; Start 10/12/18 at 09:00; Stop 10/12/18 at 13:16; Status DC Metoclopramide HCl (Reglan) 10 mg QIDACHS PO Last administered on 10/13/18 05: 49; Start 10/11/18 at 16:30 Sodium Chloride 1,000 ml @ 100 mls/hr Q10H IV Last administered on 10/13/18 05:50; Start 10/11/18 at 13:00; Stop 10/13/18 at 09:12; Status DC Acetaminophen (Tylenol) 500 mg PRN Q6HRS PRN PO MILD PAIN / TEMP; Start at 10:15 Linezolid/Dextrose 300 ml @ 300 mls/hr Q12HR IV Last administered on at 08:33; Start 10/12/18 at 14:00 Diazepam (Valium) 5 mg PRN Q8HRS PRN PO ANXIETY Last administered on 10/13/18at 02:46; Start 10/12/18 at 18:30 Active Scripts Active Tramadol Hcl 50 Mg Tablet 50 Mg PO Q6HRS PRN 3 Days Bactrim Ds Tablet (Sulfamethoxazole/Trimethoprim) 1 Each Tablet 1 Tab PO BID Culturelle (Lactobacillus Rhamnosus Gg) 1 Each Cap.sprink 1 Cap PO BID 14 Days Oxycodone Hcl Immed.release (Oxycodone Hcl) 5 Mg Tablet 10 Mg PO PRN Q6HRS PRN 10 Days Zyvox (Linezolid) 600 Mg Tablet 600 Mg PO BID 10 Days Levaquin (Levofloxacin) 500 Mg Tablet 500 Mg PO DAILY06 10 Days Reported Aspirin 325 Mg Tablet 1 Tab PO DAILY Seroquel (Quetiapine Fumarate) 100 Mg Tablet 1 Tab PO QHS Ferrous Sulfate 325 Mg Tablet 325 Mg PO BID Humalog (Insulin Lispro) 100 Unit/1 Ml Cartridge 30 Unit SQ TIDWMEALS Lantus Solostar (Insulin Glargine,Hum.rec.anlog) 100 Unit/1 Ml Insuln.pen 80 Unit SQ Q12HR Vitals/I & O Vital Sign - Last 24 Hours 10/12/18 10/12/18 10/12/18 10/12/18 14:38 15:00 19:00 20:00 Temp 98.8 98.9 98.8 98.9 Pulse 100 112 Resp 18 17 B/P (MAP) 123/62 (82) 124/68 (86) Pulse Ox 95 94 93 O2 Delivery Room Air Room Air Room Air Room Air 10/12/18 10/12/18 10/12/18 10/13/18 20:39 21:28 23:00 02:46 Temp 98.9 98.9 Pulse 108 Resp 18 18 16 18 B/P (MAP) 118/79 (92) Pulse Ox 95 95 95 95 O2 Delivery Room Air Room Air Room Air Room Air 10/13/18 10/13/18 10/13/18 10/13/18 03:00 03:26 03:46 04:26 Temp 98.4 98.4 Pulse 106 Resp 17 18 18 18 B/P (MAP) 122/69 (86) Pulse Ox 94 95 95 95 O2 Delivery Room Air Room Air Room Air Room Air 10/13/18 10/13/18 10/13/18 07:00 08:00 11:08 Temp 98.5 98.5 Pulse 93 Resp 16 18 B/P (MAP) 98/58 (71) Pulse Ox 94 O2 Delivery Room Air Room Air Room Air Intake and Output 10/12/18 10/12/18 10/13/18 14:59 22:59 06:59 Intake Total 260 ml 440 ml Balance 260 ml 440 ml HIRAL EATON MD Oct 13, 2018 11:46
--- NOTE | 2018-10-13 12:20 | PDOC ---
Infectious Disease Note Vital Sign Vital Signs Vital Signs Date Time Temp Pulse Resp B/P (MAP) Pulse Ox O2 Delivery O2 Flow Rate FiO2 10/13/18 11:08 18 Room Air 10/13/18 07:00 98.5 93 98/58 (71) 94 98.5 Labs Lab Laboratory Tests Test 10/12/18 16:35 10/12/18 21:24 10/13/18 06:35 10/13/18 08:19 Glucose (Fingerstick) 95 mg/dL (70-99) 158 mg/dL (70-99) 106 mg/dL (70-99) White Blood Count 4.8 x10^3/uL (4.0-11.0) Red Blood Count 4.43 x10^6/uL (3.50-5.40) Hemoglobin 11.1 g/dL (12.0-15.5) Hematocrit 34.3 % (36.0-47.0) Mean Corpuscular Volume 78 fL (79-100) Mean Corpuscular Hemoglobin 25 pg (25-35) Mean Corpuscular Hemoglobin Concent 32 g/dL (31-37) Red Cell Distribution Width 17.9 % (11.5-14.5) Platelet Count 258 x10^3/uL (140-400) Neutrophils (%) (Auto) 56 % (31-73) Lymphocytes (%) (Auto) 35 % (24-48) Monocytes (%) (Auto) 8 % (0-9) Eosinophils (%) (Auto) 1 % (0-3) Basophils (%) (Auto) 0 % (0-3) Neutrophils # (Auto) 2.7 x10^3uL (1.8-7.7) Lymphocytes # (Auto) 1.7 x10^3/uL (1.0-4.8) Monocytes # (Auto) 0.4 x10^3/uL (0.0-1.1) Eosinophils # (Auto) 0.0 x10^3/uL (0.0-0.7) Basophils # (Auto) 0.0 x10^3/uL (0.0-0.2) Test 10/13/18 11:38 Glucose (Fingerstick) 85 mg/dL (70-99) Micro Microbiology 10/11/18 Urine Culture - Preliminary, Resulted 10/11/18 Urine Culture Result 1 (ROLY) - Preliminary, Resulted Objective Assessment UTI Fever N/V Plan Plan of Care omnicef ok to d/c home YUSRA FERRER MD Oct 13, 2018 12:20
[2018-10-13 15:00] VITALS: BP 112/73
[2018-10-13 19:00] VITALS: BP 129/78
[2018-10-13] MEDS ORDERED: HEPARIN PF 500 UNIT/5 ML DISP.SYRIN. IV PRN (19:00)
[2018-10-13] MEDS ORDERED: CEFDINIR 300 MG CAPSULE PO SCH (21:00)
[2018-10-13] MEDS: QUEtiapine 100 MG TABLET. PO SCH (21:57)
[2018-10-13 23:00] VITALS: BP 106/69
--- NOTE | 2018-10-13 23:32 | CONS ---
DATE OF CONSULTATION: 10/13/2018 REQUESTING PHYSICIAN: Dr. Billings. REASON FOR CONSULTATION: Antibiotic management for UTI. HISTORY OF PRESENT ILLNESS: This is a 27-year-old female with multiple admissions, who comes in with nausea, vomiting, abdominal pain and unable to urinate easily and having some blood come out when trying to urinate. The patient did have a low grade fever up to 100.1. Abnormal urinalysis, it is growing E. coli. The patient is comfortable. The patient received Zyvox for the recent history of VRE as well as Rocephin. PAST MEDICAL HISTORY: Positive for hypertension, anxiety disorder, diabetes, cyclic vomiting syndrome and has had appendicectomy, cholecystectomy, , hernia repair, also multiple admissions for not good reasons. SOCIAL HISTORY: Negative for smoking, alcohol, illicit drug use. ALLERGIES: LISTED ALLERGY TO PENICILLINS. CEPHALOSPORINS, she can handle, just has more itching she says and DOXYCYCLINE. REVIEW OF SYSTEMS: As per HPI. All other systems reviewed are negative. PHYSICAL EXAMINATION: GENERAL: Alert, oriented female, not in distress. VITAL SIGNS: Stable with a T-max 100.1. NECK: Supple, no JVD, no lymphadenopathy. LUNGS: Clear. CARDIOVASCULAR: S1, S2 regular. ABDOMEN: Benign. EXTREMITIES: No edema or cyanosis. SKIN: Unremarkable. NEUROLOGIC: The patient is neurologically intact. LABORATORY DATA: White count is normal. BUN and creatinine is normal. Urinalysis had too numerous to count wbc's. Urine culture is positive with E. coli. Final susceptibilities are pending. She had a CT abdomen and pelvis done, which was an abdominal distention, otherwise unremarkable. IMPRESSION: 1. Urinary tract infection. 2. Fever. 3. Urinary retention. 4. Diabetes. 5. "Cyclic vomiting syndrome." RECOMMEND: Discontinue Zyvox, start Omnicef. Await culture results. Hopefully, discharge soon. Thank you very much, Dr. Billings, for giving me the opportunity to participate in this patient's care. YUSRA FERRER MD DR: DALE/ric JOB#: [id number] / [id number]
[2018-10-14] MEDS: oxyCODONE IR 5 MG TABLET PO PRN ×3 (00:28→13:20)
[2018-10-14 03:00] VITALS: BP 113/74
[2018-10-14] MEDS: diazePAM 5 MG TABLET PO PRN ×2 (06:29→16:18)
[2018-10-14] MEDS: METOCLOPRAMIDE 10 MG TABLET. PO SCH ×2 (06:29→11:36)
[2018-10-14 07:00] VITALS: BP 117/76
[2018-10-14] MEDS: INSULIN LISPRO 300 UNITS/3 ML INSULN.PEN. SQ SCH ×4 (08:00→12:02)
[2018-10-14] MEDS: ASPIRIN 325 MG TABLET PO SCH (08:00)
--- NOTE | 2018-10-14 08:34 | PDOC ---
Infectious Disease Note Subjective Subjective sleepy, no problem per RN ROS ROS no n/v/d/fever per RN Vital Sign Vital Signs Vital Signs Date Time Temp Pulse Resp B/P (MAP) Pulse Ox O2 Delivery O2 Flow Rate FiO2 10/14/18 07:30 18 Room Air 10/14/18 07:00 98.2 100 117/76 (90) 91 98.2 Physical Exam PHYSICAL EXAM GENERAL: Alert, oriented female, not in distress. VITAL SIGNS: Stable NECK: Supple, no JVD, no lymphadenopathy. LUNGS: Clear. CARDIOVASCULAR: S1, S2 regular. ABDOMEN: Benign. EXTREMITIES: No edema or cyanosis. SKIN: Unremarkable. NEUROLOGIC: The patient is neurologically intact. Labs Lab Laboratory Tests Test 10/13/18 11:38 10/13/18 16:35 10/13/18 20:57 10/14/18 07:26 Glucose (Fingerstick) 85 mg/dL (70-99) 122 mg/dL (70-99) 108 mg/dL (70-99) 255 mg/dL (70-99) Micro URINE CULTURE Final Final report URINE CULTURE RES 1 Final Escherichia coli Greater than 100,000 colony forming units per mL Susceptibility profile is consistent with a probable ESBL. ANTIMICROBIAL SUSCEPTIBILITY Final Comment S = Susceptible; I = Intermediate; R = Resistant P = Positive; N = Negative MICS are expressed in micrograms per mL Antibiotic RSLT#1 RSLT#2 RSLT#3 RSLT#4 Amoxicillin/Clavulanic Acid S =4 Ampicillin R>=32 Cefazolin R>=64 Cefepime R =16 Ceftriaxone R>=64 Cefuroxime R>=64 Ciprofloxacin R>=4 Ertapenem S<=0.12 Gentamicin S<=1 Imipenem S<=0.25 Levofloxacin R>=8 Meropenem S<=0.25 Nitrofurantoin S<=16 Piperacillin/Tazobactam S<=4 Tetracycline R>=16 Tobramycin S<=1 Trimethoprim/Sulfa S<=20 Performed at: [facility] [address], [place], [place] [id number] Employment Attorney: LIVIA Brooks MD, Phone: [phone] Objective Assessment UTI Fever N/V Plan Plan of Care bactrim for 5 days ok to d/c home YUSRA FERRER MD Oct 14, 2018 08:34
[2018-10-14] MEDS ORDERED: OXYC5TAB4 PO (08:53)
[2018-10-14] MEDS ORDERED: SULF-143 PO (08:53)
[2018-10-14] MEDS ORDERED: SMZ/TMP 800/160MG TABLET. PO SCH (09:00)
[2018-10-14] MEDS: LACTOBACILLUS RHAMNOSUS GG 1 CAPSULE. PO SCH (09:00)
[2018-10-14 11:00] VITALS: BP 106/68
[2018-10-14] MEDS: FERROUS SULFATE 325 MG TABLET. PO SCH (11:34)
--- NOTE | 2018-10-14 11:38 | PDOC3 ---
Discharge Summary Visit Information Date of Admission: Oct 11, 2018 Date of Discharge: Oct 14, 2018 Admitting Diagnosis Comment: Escherichia coli UTI, resistant to some, sensitive to some including Bactrim penicillin and Macrobid cyclic vomiting syndrome episode HON KWADWO IrvingA resolved Diabetes type 1 on hefty doses insulin Obesity, BMI 31.3 Mild hypokalemia secondary to GI loss AK I [facility] GI loss Mild PCM Penicillin allergy-anaphylaxis VRE UTI, hx NArc tolerance Final Diagnosis Problems Medical Problems: (1) Acute pyelonephritis Status: Acute (2) Elevated blood sugar Status: Acute (3) UTI (lower urinary tract infection) Status: Acute Brief Hospital Course Allergies Allergies Coded Allergies Type Severity Reaction Last Updated Verified Penicillins Allergy Severe ANAPHYLAXIS, cefepime ok 11/12/16 Yes doxycycline Allergy Intermediate 11/12/16 Yes fentanyl Allergy Intermediate 11/12/16 Yes I S O L A T I O N *CONTACT* Allergy Unknown 08/12/18 Yes hydrocodone Adverse Reaction Intermediate itching 11/12/16 Yes cefepime Adverse Reaction Mild "makes her feel sick" 07/08/18 Yes Vital Signs Vital Signs Date Time Temp Pulse Resp B/P (MAP) Pulse Ox O2 Delivery O2 Flow Rate FiO2 10/14/18 11:00 97.4 104 20 106/68 (81) 93 Room Air 97.4 Lab Results Laboratory Tests Test 10/12/18 16:35 10/12/18 21:24 10/13/18 06:35 10/13/18 08:19 Glucose (Fingerstick) 95 mg/dL (70-99) 158 mg/dL (70-99) 106 mg/dL (70-99) White Blood Count 4.8 x10^3/uL (4.0-11.0) Red Blood Count 4.43 x10^6/uL (3.50-5.40) Hemoglobin 11.1 g/dL (12.0-15.5) Hematocrit 34.3 % (36.0-47.0) Mean Corpuscular Volume 78 fL (79-100) Mean Corpuscular Hemoglobin 25 pg (25-35) Mean Corpuscular Hemoglobin Concent 32 g/dL (31-37) Red Cell Distribution Width 17.9 % (11.5-14.5) Platelet Count 258 x10^3/uL (140-400) Neutrophils (%) (Auto) 56 % (31-73) Lymphocytes (%) (Auto) 35 % (24-48) Monocytes (%) (Auto) 8 % (0-9) Eosinophils (%) (Auto) 1 % (0-3) Basophils (%) (Auto) 0 % (0-3) Neutrophils # (Auto) 2.7 x10^3uL (1.8-7.7) Lymphocytes # (Auto) 1.7 x10^3/uL (1.0-4.8) Monocytes # (Auto) 0.4 x10^3/uL (0.0-1.1) Eosinophils # (Auto) 0.0 x10^3/uL (0.0-0.7) Basophils # (Auto) 0.0 x10^3/uL (0.0-0.2) Test 10/13/18 11:38 10/13/18 16:35 10/13/18 20:57 10/14/18 07:26 Glucose (Fingerstick) 85 mg/dL (70-99) 122 mg/dL (70-99) 108 mg/dL (70-99) 255 mg/dL (70-99) Laboratory Tests Test 10/13/18 11:38 10/13/18 16:35 10/13/18 20:57 10/14/18 07:26 Glucose (Fingerstick) 85 mg/dL (70-99) 122 mg/dL (70-99) 108 mg/dL (70-99) 255 mg/dL (70-99) Brief Hospital Course Ms. Smith is a 27 old cyclic vomiter, frequent flier, admitted because of cyclic vomiting again but that has since resolved. But course remarkable for fevers and a UTI. per relay history of VRE UTI was initially getting Rocephin. Upgraded to Zyvox. Urine culture grew out not VRE UTI but just Escherichia coli UTI and sensitive to some. She preferred Bactrim - I have Rx'd Bactrim and some pain medicine per her request Consults performed by ID Procedures performed none Time spent discharge less than 30 Discharge Information Condition at Discharge: Improved, Stable Disposition/Orders: D/C to Home Scheduled Aspirin (Aspirin) 325 Mg Tablet, 1 TAB PO DAILY for clots, #30 Ref 5 (Reported) Entered as Reported by: TRISTA HOLDEN on 07/08/18 0338 Last Action: Continued on 10/11/18901 by HIRAL EATON Ferrous Sulfate (Ferrous Sulfate) 325 Mg Tablet, 325 MG PO BID for iron supplement, (Reported) Entered as Reported by: ZACH RANDALL on 10/26/171922 Last Action: Continued on 10/11/18901 by HIRAL EATON Insulin Glargine,Hum.rec.anlog (Lantus Solostar) 100 Unit/1 Ml Insuln.pen, 80 UNIT SQ Q12HR for antidiabetic, (Reported) Entered as Reported by: ISIDRO GIPSON on 02/24/17925 Last Action: Continued on 10/11/18901 by HIRAL EATON Insulin Lispro (Humalog) 100 Unit/1 Ml Cartridge, 30 UNIT SQ TIDWMEALS for antidiabetic, (Reported) Entered as Reported by: ISIDRO GIPSON on 02/24/17925 Last Action: Converted on 10/11/18901 by HIRAL EATON Lactobacillus Rhamnosus Gg (Culturelle) 1 Each Cap.sprink, 1 CAP PO BID for gi supplement for 14 Days, #28 Prescribed by: JESSICA KOENIG MD on 09/02/181348 Last Action: Continued on 10/11/18901 by HIRAL EATON Levofloxacin (Levaquin) 500 Mg Tablet, 500 MG PO DAILY06 for pneumonia for 10 Days, #10 Prescribed by: JESSICA KOENIG MD on 09/02/181348 Last Action: HELD on 10/11/18901 by HIRAL EATON Linezolid (Zyvox) 600 Mg Tablet, 600 MG PO BID for uti/ pneumonia for 10 Days, # 20 Prescribed by: JESSICA KOENIG MD on 09/02/181348 Last Action: HELD on 10/11/18901 by HIRAL EATON Quetiapine Fumarate (Seroquel) 100 Mg Tablet, 1 TAB PO QHS for mental health, # 30 Ref 1 (Reported) Entered as Reported by: Brigitte Stanley on 12/21/17528 Last Action: Converted on 10/11/18901 by HIRAL EATON Sulfamethoxazole/Trimethoprim (Bactrim Ds Tablet) 1 Each Tablet, 1 TAB PO BID, # 20 Prescribed by: WENDI MONTAÑO APRN on 10/08/182351 Last Action: HELD on 10/11/18901 by HIRAL EATON Sulfamethoxazole/Trimethoprim (Sulfamethoxazole-Tmp Ds Tablet) 1 Each Tablet, 1 TAB PO BID for complicated uti MDD 1 for 7 Days, #14 Prescribed by: HIRAL EATON on 10/14/18 0853 Scheduled PRN Oxycodone Hcl (Oxycodone Hcl Immed.release ) 5 Mg Tablet, 10 MG PO PRN Q6HRS PRN for SEVERE PAIN for 10 Days, #15 Prescribed by: HIRAL EATON on 10/14/18 0853 Tramadol Hcl (Tramadol Hcl) 50 Mg Tablet, 50 MG PO Q6HRS PRN for PAIN for 3 Days , #12 Ref 0 Prescribed by: WENDI MONTAÑO APRN on 10/08/182351 Last Action: Continued on 10/11/18901 by HIRAL LOVETT MD Oct 14, 2018 11:38
[2018-10-14] MEDS: INSULIN GLARGINE 300 UNITS/3 ML INSULN.PEN. SQ SCH (12:00)
[2018-10-14 15:00] VITALS: BP 120/80
== END 2018-10-14 16:21 | disposition home or self-care (01) | DRG 683 ==
LOC: ER 23:37 → 5 NORTH 10-11 05:19 → OBSVTOIN 10-11 13:22
PROVIDERS: ADMIT Internal Medicine; ATTEND Internal Medicine
DX: N17.0 Acute kidney failure with tubular necrosis (principal); E44.1 Mild protein-calorie malnutrition; N10 Acute pyelonephritis; F41.9 Anxiety disorder, unspecified; G62.9 Polyneuropathy, unspecified; B95.2 Enterococcus as the cause of diseases classified elsewhere; B96.20 Unspecified Escherichia coli [E. coli] as the cause of diseases classified elsewhere; E10.9 Type 1 diabetes mellitus without complications; E66.9 Obesity, unspecified; E87.6 Hypokalemia; G43.A0 Cyclical vomiting, in migraine, not intractable; I10 Essential (primary) hypertension; Z16.21 Resistance to vancomycin; Z79.4 Long term (current) use of insulin; Z79.82 Long term (current) use of aspirin; Z79.899 Other long term (current) drug therapy; Z82.49 Family history of ischemic heart disease and other diseases of the circulatory system; Z86.718 Personal history of other venous thrombosis and embolism; Z68.31 Body mass index [BMI] 31.0-31.9, adult; Z88.0 Allergy status to penicillin; Z90.49 Acquired absence of other specified parts of digestive tract; Z88.1 Allergy status to other antibiotic agents; Z88.5 Allergy status to narcotic agent; Z88.8 Allergy status to other drugs, medicaments and biological substances
CPT/HCPCS: 36415; 80053; 81001; 82962; 83036; 85025; 87086; 87186; 96361; 96374; 96375; G0378; G0379; J0696; J1815; J1885; J2020; J2270; J2405; J7030; J8597; 99285-25

== ENCOUNTER 2018-10-27 18:58 | Emergency (ER) | payer SELFPAY ==
[~2018-10-27] VITALS: Ht 170.2 cm; Wt 87.1 kg
[2018-10-27] MEDS ORDERED: IV NORMAL SALINE 1000ML BAG 1,000 ML IV ONE (19:30)
[2018-10-27] MEDS ORDERED: METOCLOPRAMIDE HCL 10 MG/2 ML VIAL. IV ONE (19:30)
[2018-10-27] MEDS ORDERED: KETOROLAC 30 MG/ML VIAL. IV ONE (19:30)
--- NOTE | 2018-10-27 19:41 | PHYS DOC ---
Past Medical History Past Medical History: Diabetes-Type I, Ovarian Cyst Additional Past Medical Histor: neuropathy,ovarian cyst,VENTRAL HERNIA, hyperglycemia,D&C, L leg clot Past Surgical History: Other Additional Past Surgical Histo: R fallopian, L ovary cyst removed,HERNIA REPAIR , I&D L ARM, left thumb amp Alcohol Use: None Drug Use: None Adult General Chief Complaint Chief Complaint: MULTIPLE COMPLAINTS HPI HPI Patient is a 27 year old female who presents to the ED with multiple complaints. She reports left flank pain that radiates around her side into her left lower quadrant, nausea, vomiting, hyperglycemia, and difficulty emptying her bladder. She says this all got worse 2 days ago after she finished a course of antibiotics for pyelonephritis which she was admitted to the hospital for recently. She's been unable to keep food or drink and for the last 2 days.Patient rates the pain at as a 7-8/10 throbbing stabbing pain. Ice and heat packs have helped slightly. Lying flat makes the pain worse. Symptoms do not very based on time of day. Review of Systems Review of Systems Constitutional: Admits chills. Denies fever Eyes: Denies change in visual acuity, redness, or eye pain [] HENT: Denies nasal congestion or sore throat [] Respiratory: Denies cough or shortness of breath [] Cardiovascular: Denies chest pain or palpitations. GI: Admits abdominal pain, nausea, vomiting. Denies bloody stools or diarrhea [] : Admits potential hematuria. Denies dysuria [] Musculoskeletal: Admits flank pain. Denies back pain or joint pain [] Integument: Denies rash or skin lesions [] Neurologic: Denies headache, focal weakness or sensory changes [] Complete systems were reviewed and found to be within normal limits, except as documented in this note. Current Medications Current Medications Current Medications Medications (Trade) Dose Ordered Sig/Naya Start Time Stop Time Status Last Admin Dose Admin Heparin Sodium (Porcine) (Hep Lock Adult) 500 unit 1X ONCE 10/28/18 01:15 10/28/18 01:23 DC 10/28/18 01:21 500 UNIT Insulin Human Regular (HumuLIN R VIAL) 14 unit 1X ONCE 10/27/18 21:15 10/27/18 21:16 DC 10/27/18 21:27 14 UNIT Ketorolac Tromethamine (Toradol 30mg Vial) 15 mg 1X ONCE 10/27/18 19:30 10/27/18 19:35 DC 10/27/18 20:10 15 MG Metoclopramide HCl (Reglan Vial) 10 mg 1X ONCE 10/27/18 19:30 10/27/18 19:35 DC 10/27/18 20:10 10 MG Morphine Sulfate (Morphine Sulfate) 4 mg 1X ONCE 10/28/18 01:30 10/28/18 01:30 DC 10/28/18 01:20 4 MG Ondansetron HCl (Zofran) 4 mg 1X ONCE 10/28/18 01:30 10/28/18 01:30 DC 10/28/18 01:19 4 MG Phenazopyridine HCl (Pyridium) 200 mg 1X ONCE 10/27/18 22:00 10/27/18 22:01 DC 10/27/18 21:35 200 MG Sodium Chloride 1,000 ml @ 1,000 mls/hr 1X ONCE 10/27/18 19:30 10/27/18 20:29 DC 10/27/18 20:10 1,000 MLS/HR Allergies Allergies Allergies Coded Allergies Type Severity Reaction Last Updated Verified Penicillins Allergy Severe ANAPHYLAXIS, cefepime ok 11/12/16 Yes doxycycline Allergy Intermediate 11/12/16 Yes fentanyl Allergy Intermediate 11/12/16 Yes I S O L A T I O N *CONTACT* Allergy Unknown 08/12/18 Yes hydrocodone Adverse Reaction Intermediate itching 11/12/16 Yes cefepime Adverse Reaction Mild "makes her feel sick" 07/08/18 Yes Physical Exam Physical Exam Constitutional: Well developed, well nourished, no acute distress, non-toxic appearance. [] HENT: Normocephalic, atraumatic, nose normal. [] Eyes: EOMI, conjunctiva normal, no discharge. [] Neck: Normal range of motion, no tenderness, supple, no stridor. [] Cardiovascular: Tachycardic by auscultation. No murmurs or gallops. Lungs & Thorax: Bilateral breath sounds clear to auscultation [] Abdomen: Bowel sounds normal, soft. Tender to palpation left lower quadrant. No rebound tenderness. Skin: Warm, dry, no erythema, no rash. [] Back: Significant left CVA tenderness. No right CVA tenderness. No midline tenderness Extremities: No tenderness, no cyanosis, no clubbing, ROM intact, no edema. [] Neurologic: Alert and oriented, normal motor function, normal sensory function, no focal deficits noted. [] Psychologic: Affect normal, judgement normal, mood normal. [] Current Patient Data Vital Signs Vital Signs Date Time Temp Pulse Resp B/P (MAP) Pulse Ox O2 Delivery O2 Flow Rate FiO2 10/28/18 01:08 114 20 143/82 (102) 95 Room Air 10/27/18 19:00 97.9 97.9 Lab Values Laboratory Tests Test 10/27/18 19:05 10/27/18 20:15 10/27/18 20:35 10/27/18 21:28 Glucose (Fingerstick) 466 mg/dL (70-99) H 391 mg/dL (70-99) H White Blood Count 4.8 x10^3/uL (4.0-11.0) Red Blood Count 4.57 x10^6/uL (3.50-5.40) Hemoglobin 11.4 g/dL (12.0-15.5) L Hematocrit 35.4 % (36.0-47.0) L Mean Corpuscular Volume 77 fL (79-100) L Mean Corpuscular Hemoglobin 25 pg (25-35) Mean Corpuscular Hemoglobin Concent 32 g/dL (31-37) Red Cell Distribution Width 17.4 % (11.5-14.5) H Platelet Count 209 x10^3/uL (140-400) Neutrophils (%) (Auto) 52 % (31-73) Lymphocytes (%) (Auto) 38 % (24-48) Monocytes (%) (Auto) 9 % (0-9) Eosinophils (%) (Auto) 1 % (0-3) Basophils (%) (Auto) 1 % (0-3) Neutrophils # (Auto) 2.5 x10^3uL (1.8-7.7) Lymphocytes # (Auto) 1.8 x10^3/uL (1.0-4.8) Monocytes # (Auto) 0.4 x10^3/uL (0.0-1.1) Eosinophils # (Auto) 0.0 x10^3/uL (0.0-0.7) Basophils # (Auto) 0.0 x10^3/uL (0.0-0.2) Sodium Level 131 mmol/L (136-145) L Potassium Level 4.3 mmol/L (3.5-5.1) Chloride Level 95 mmol/L (98-107) L Carbon Dioxide Level 26 mmol/L (21-32) Anion Gap 10 (6-14) Blood Urea Nitrogen 5 mg/dL (7-20) L Creatinine 0.7 mg/dL (0.6-1.0) Estimated GFR (Cockcroft-Gault) 98.9 BUN/Creatinine Ratio 7 (6-20) Glucose Level 423 mg/dL (70-99) H Lactic Acid Level 1.9 mmol/L (0.4-2.0) Calcium Level 8.9 mg/dL (8.5-10.1) Total Bilirubin 0.3 mg/dL (0.2-1.0) Aspartate Amino Transferase (AST) 34 U/L (15-37) Alanine Aminotransferase (ALT) 36 U/L (14-59) Alkaline Phosphatase 598 U/L (46-116) H Total Protein 7.9 g/dL (6.4-8.2) Albumin 3.0 g/dL (3.4-5.0) L Albumin/Globulin Ratio 0.6 (1.0-1.7) L Lipase 138 U/L (73-393) Urine Collection Type U cath Urine Color Yellow Urine Clarity Clear Urine pH 6.5 Urine Specific [place] 1.015 Urine Protein Negative mg/dL (NEG-TRACE) Urine Glucose (UA) >=1000 mg/dL (NEG) Urine Ketones (Stick) Negative mg/dL (NEG) Urine Blood Negative (NEG) Urine Nitrite Negative (NEG) Urine Bilirubin Negative (NEG) Urine Urobilinogen Dipstick 0.2 mg/dL (0.2 mg/dL) Urine Leukocyte Esterase Negative (NEG) Urine RBC 1-2 /HPF (0-2) Urine WBC 1-4 /HPF (0-4) Urine Squamous Epithelial Cells Mod /LPF Urine Bacteria 0 /HPF (0-FEW) Test 10/27/18 22:08 Glucose (Fingerstick) 395 mg/dL (70-99) H Laboratory Tests 10/27/18 20:15 Laboratory Tests 10/27/18 20:15 EKG EKG [] Radiology/Procedures Radiology/Procedures PROCEDURE: PELVIS W/TV Pelvic ultrasound to include transabdominal and transvaginal imaging 10/19/2018 CLINICAL HISTORY: Left pelvic pain for 2 days. TECHNIQUE: Using the distended urinary bladder as a sonographic window, a real-time ultrasound examination of the pelvis was performed. Additionally in an attempt to better evaluate the uterus and adnexa, a transvaginal ultrasound study was performed. Multiple images were obtained. FINDINGS: Comparison is made to a CT scan of the abdomen and pelvis dated 10/08/2018. The uterus is within normal limits in size and echogenicity. It measures 7.8 x 3.7 x 4.1 cm in longitudinal, transverse, and AP dimensions. No focal abnormality of the uterus is seen. The endometrial echo complex measures 4 mm in thickness which is within normal limits. The right ovary is not visualized consistent with the patient's history of a right oophorectomy. The left ovary is normal in size and echogenicity. It measures 3.9 x 2.2 x 1.8 cm in size. A 1.9 cm dominant follicle is seen within the left ovary. No adnexal mass is seen. A small amount of free fluid is seen within the pelvis. IMPRESSION: 1. Post right oophorectomy. 2. Small amount of free fluid is seen within the pelvis. 3. Otherwise negative study. Electronically signed by: Redd Rosario MD (10/28/2018 12:36 AM) [facility] Course & Med Decision Making Course & Med Decision Making Pertinent Labs and Imaging studies reviewed. (See chart for details) Patient is a 27 old female who presents to the ED with multiple complaints, mostly abdominal with left flank pain radiating anteriorly, nausea, vomiting. GI panel pending. Lactic acid within normal limits at 1.9. Labs and urine showed no signs of infection. Accu-Chek 466. Pseudohyponatremia at 131. Ultrasound pelvis showed a previous right oophorectomy and small amount of free fluid in the pelvis but otherwise negative. She elected not to get a CT abdomen because she just had one recently in the hospital. Patient felt better with symptomatic management. Discharged patient to home with Phenergan, Pyridium, and tramadol. Dragon Disclaimer Dragon Disclaimer This electronic medical record was generated, in whole or in part, using a voice recognition dictation system. Departure Departure Impression: Primary Impression: Abdominal pain Additional Impression: Dysuria Disposition: 01 HOME, SELF-CARE Condition: STABLE Referrals: NO PCP (PCP) HORACIO DELATORRE MD Patient Instructions: Abdominal Pain (Nonspecific), Dysuria-Brief Scripts Phenazopyridine Hcl (PYRIDIUM) 200 Mg Tablet 200 MG PO TID, #6 TAB Prov: DOMINIC MANCINI DO 10/28/18 Promethazine HCl (Phenergan) 25 Mg Supp.rect 25 MG RC Q8HRS, #10 SUPP.RECT Prov: DOMINIC MANCINI DO 10/28/18 Tramadol Hcl (TRAMADOL HCL) 50 Mg Tablet 50 MG PO Q6HRS PRN for PAIN, #14 TAB Prov: DOMINIC MANCINI DO 10/28/18 Problem Qualifiers Primary Impression: Abdominal pain Abdominal location: left lower quadrant Qualified Codes: R10.32 - Left lower quadrant pain DOMINIC MANCINI DO Oct 27, 2018 19:41
[2018-10-27 20:18] LABS: BASO % 1 % (0-3); EOS % 1 % (0-3); HEMATOCRIT 35.4 % (36.0-47.0); HEMOGLOBIN 11.4 g/dL (12.0-15.5); LYMPH # 1.8 x10^3/uL (1.0-4.8); LYMPH % 38 % (24-48); MEAN CORPUSCULAR HEMOGLOBIN 25 pg (25-35); MEAN CORPUSCULAR HGB CONC 32 g/dL (31-37); MEAN CORPUSCULAR VOLUME 77 fL (79-100); MONO # 0.4 x10^3/uL (0.0-1.1); MONO % 9 % (0-9); NEUT # 2.5 x10^3uL (1.8-7.7); NEUT % 52 % (31-73); PLATELET COUNT 209 x10^3/uL (140-400); RED BLOOD COUNT 4.57 x10^6/uL (3.50-5.40); RED CELL DISTRIBUTION WIDTH 17.4 % (11.5-14.5); WHITE BLOOD COUNT 4.8 x10^3/uL (4.0-11.0)
[2018-10-27 20:27] LABS: CALCIUM 8.9 mg/dL (8.5-10.1); CREATININE 0.7 mg/dL (0.6-1.0); GFR 98.9; POTASSIUM 4.3 mmol/L (3.5-5.1)
[2018-10-27 20:32] LABS: ALBUMIN/GLOBULIN RATIO 0.6 (1.0-1.7); TOTAL BILIRUBIN 0.3 mg/dL (0.2-1.0); TOTAL PROTEIN 7.9 g/dL (6.4-8.2)
[2018-10-27 20:43] LABS: BILIRUBIN,URINE NEGATIVE (NEG); CLARITY,URINE CLEAR; COLOR,URINE YELLOW; NITRITE,URINE NEGATIVE (NEG); PH,URINE 6.5; PROTEIN,URINE NEGATIVE (NEG-TRACE); UROBILINOGEN,URINE 0.2 mg/dL (0.2 mg/dL)
[2018-10-27 20:55] LABS: BACTERIA,URINE 0 /HPF (0-FEW); SQUAMOUS EPITHELIAL CELL,UR MOD /LPF
[2018-10-27] MEDS ORDERED: INSULIN REGULAR 100 UNIT/ML 3ML VIAL. SQ ONE (21:15)
[2018-10-27] MEDS ORDERED: MORPHINE SULFATE 4 MG/ML VIAL. IV ONE (22:00)
[2018-10-27] MEDS ORDERED: PHENAZOPYRIDINE 200 MG TABLET. PO ONE (22:00)
--- NOTE | 2018-10-28 00:39 | RAD ---
Pelvic ultrasound to include transabdominal and transvaginal imaging 10/19/2018 CLINICAL HISTORY: Left pelvic pain for 2 days. TECHNIQUE: Using the distended urinary bladder as a sonographic window, a real-time ultrasound examination of the pelvis was performed. Additionally in an attempt to better evaluate the uterus and adnexa, a transvaginal ultrasound study was performed. Multiple images were obtained. FINDINGS: Comparison is made to a CT scan of the abdomen and pelvis dated 10/08/2018. The uterus is within normal limits in size and echogenicity. It measures 7.8 x 3.7 x 4.1 cm in longitudinal, transverse, and AP dimensions. No focal abnormality of the uterus is seen. The endometrial echo complex measures 4 mm in thickness which is within normal limits. The right ovary is not visualized consistent with the patient's history of a right oophorectomy. The left ovary is normal in size and echogenicity. It measures 3.9 x 2.2 x 1.8 cm in size. A 1.9 cm dominant follicle is seen within the left ovary. No adnexal mass is seen. A small amount of free fluid is seen within the pelvis. IMPRESSION: 1. Post right oophorectomy. 2. Small amount of free fluid is seen within the pelvis. 3. Otherwise negative study. Electronically signed by: Redd Rosario MD (10/28/2018 12:36 AM) [facility]
[2018-10-28 01:08] VITALS: BP 143/82
[2018-10-28] MEDS ORDERED: PHEN-318 PO (01:12)
[2018-10-28] MEDS ORDERED: PROM25SU32 RC (01:12)
[2018-10-28] MEDS ORDERED: TRAM50TA PO (01:12)
[2018-10-28] MEDS ORDERED: HEPARIN PF 500 UNIT/5 ML DISP.SYRIN. IV ONE (01:15)
[2018-10-28] MEDS ORDERED: MORPHINE SULFATE 4 MG/ML VIAL. IV ONE (01:30)
[2018-10-28] MEDS ORDERED: ONDANSETRON PF 4 MG/2 ML VIAL. IV ONE (01:30)
== END 2018-10-28 01:29 | disposition home or self-care (01) ==
LOC: ER 18:58
DX: R10.32 Left lower quadrant pain (principal); R30.0 Dysuria; R11.2 Nausea with vomiting, unspecified; E10.65 Type 1 diabetes mellitus with hyperglycemia; R31.9 Hematuria, unspecified; R00.0 Tachycardia, unspecified; E10.40 Type 1 diabetes mellitus with diabetic neuropathy, unspecified; Z88.0 Allergy status to penicillin; Z88.1 Allergy status to other antibiotic agents; Z88.5 Allergy status to narcotic agent; Z88.8 Allergy status to other drugs, medicaments and biological substances; Z91.041 Radiographic dye allergy status
CPT/HCPCS: 36415; 76830; 76856; 80053; 81001; 82962; 83605; 83690; 85025; 87040; 96361; 96372; 96374; 96375; 96376; 99284; J1815; J1885; J2270; J2405; J2765; J7030

== ENCOUNTER 2018-11-02 23:34 | Inpatient (IN) | payer SELFPAY ==
[~2018-11-02] VITALS: Ht 172.7 cm; Wt 99.9 kg
[~2018-11-02 23:34] MED LIST changes: +PHEN-318 PO; +PROM25SU32 RC
[2018-11-03] MEDS ORDERED: IV NORMAL SALINE 1000ML BAG 1,000 ML IV SCH
[2018-11-03 00:04] LABS: BILIRUBIN,URINE NEGATIVE (NEG); CLARITY,URINE CLEAR; COLOR,URINE YELLOW; NITRITE,URINE NEGATIVE (NEG); PH,URINE 6.5; PROTEIN,URINE NEGATIVE (NEG-TRACE); UROBILINOGEN,URINE 0.2 mg/dL (0.2 mg/dL)
[2018-11-03 00:10] LABS: RBC,URINE TNTC /HPF (0-2)
[2018-11-03 00:11] LABS: BACTERIA,URINE 0 /HPF (0-FEW); SQUAMOUS EPITHELIAL CELL,UR MOD /LPF; WBC,URINE OCC /HPF (0-4)
[2018-11-03] MEDS ORDERED: INSULIN REGULAR 100 UNIT/ML 3ML VIAL. IV ONE (00:15)
[2018-11-03 00:25] LABS: BASO % 1 % (0-3); EOS # 0.1 x10^3/uL (0.0-0.7); EOS % 1 % (0-3); HEMATOCRIT 33.8 % (36.0-47.0); HEMOGLOBIN 10.6 g/dL (12.0-15.5); LYMPH # 1.4 x10^3/uL (1.0-4.8); LYMPH % 32 % (24-48); MEAN CORPUSCULAR HEMOGLOBIN 25 pg (25-35); MEAN CORPUSCULAR HGB CONC 31 g/dL (31-37); MEAN CORPUSCULAR VOLUME 78 fL (79-100); MONO # 0.3 x10^3/uL (0.0-1.1); MONO % 8 % (0-9); NEUT # 2.6 x10^3uL (1.8-7.7); NEUT % 59 % (31-73); PLATELET COUNT 269 x10^3/uL (140-400); RED BLOOD COUNT 4.33 x10^6/uL (3.50-5.40); RED CELL DISTRIBUTION WIDTH 16.8 % (11.5-14.5); WHITE BLOOD COUNT 4.4 x10^3/uL (4.0-11.0)
[2018-11-03 00:42] LABS: ALBUMIN 3.1 g/dL (3.4-5.0); ALBUMIN/GLOBULIN RATIO 0.6 (1.0-1.7); CALCIUM 8.7 mg/dL (8.5-10.1); CREATININE 0.8 mg/dL (0.6-1.0); GFR 84.8; POTASSIUM 4.2 mmol/L (3.5-5.1); TOTAL BILIRUBIN 0.4 mg/dL (0.2-1.0); TOTAL PROTEIN 7.9 g/dL (6.4-8.2)
[2018-11-03] MEDS ORDERED: ONDANSETRON PF 4 MG/2 ML VIAL. ONE (01:03)
[2018-11-03] MEDS ORDERED: traMADol 50 MG TABLET PO ONE (01:15)
[2018-11-03] MEDS ORDERED: ONDANSETRON PF 4 MG/2 ML VIAL. IV ONE (01:15)
[2018-11-03] MEDS ORDERED: KETOROLAC 15 MG/ML VIAL. IV ONE (02:00)
[2018-11-03] MEDS ORDERED: MORPHINE SULFATE 2 MG/ML VIAL. IV ONE (02:00)
--- NOTE | 2018-11-03 02:20 | PHYS DOC ---
Past Medical History Past Medical History: Diabetes-Type I, Ovarian Cyst Additional Past Medical Histor: neuropathy,ovarian cyst,VENTRAL HERNIA, hyperglycemia,D&C, L leg clot Past Surgical History: Other Additional Past Surgical Histo: R fallopian, L ovary cyst removed,HERNIA REPAIR , I&D L ARM, left thumb amp Alcohol Use: None Drug Use: None Adult General Chief Complaint Chief Complaint: HYPERGLYCEMIA HPI HPI Patient is a 27-year-old female who presents with complaint of lower abdominal pain with nausea and vomiting along with liquidy stools. She states that symptoms have been present for the last few days and have progressively gotten worse. She states that she has not been able to keep any of her medications down. She states that this morning when she woke up her blood sugar was in the 40s and then she checked her blood sugar again this evening and it read high. She rates the pain in her abdomen at a 10 out of 10. She describes a sharp and stabbing in nature. She also indicates that it's very painful to urinate and she has to strain to urinate. She states that she was recently diagnosed with urinary tract infection and started on Cipro. Review of Systems Review of Systems Constitutional: Denies fever or chills [] Respiratory: Denies cough or shortness of breath [] Cardiovascular: No additional information not addressed in HPI [] GI: Complains of lower abdominal pain with nausea, vomiting and diarrhea [] : Complains of dysuria and hematuria [] Musculoskeletal: Complains of bilateral lower back pain [] All other systems were reviewed and found to be within normal limits, except as documented in this note. Current Medications Current Medications Current Medications Medications (Trade) Dose Ordered Sig/Naya Start Time Stop Time Status Last Admin Dose Admin Insulin Human Regular (HumuLIN R VIAL) 10 unit 1X ONCE 11/03/18 00:15 11/03/18 00:16 DC 11/03/18 00:17 10 UNIT Ketorolac Tromethamine (Toradol 15mg Vial) 15 mg 1X ONCE 11/03/18 02:00 11/03/18 02:01 DC 11/03/18 02:11 15 MG Morphine Sulfate (Morphine Sulfate) 2 mg 1X ONCE 11/03/18 02:00 11/03/18 02:01 DC 11/03/18 02:10 2 MG Ondansetron HCl (Zofran) 4 mg STK-MED ONCE 11/03/18 01:03 11/03/18 01:04 DC Sodium Chloride 1,000 ml @ 1,000 mls/hr Q1H 11/03/18 00:00 11/03/18 00:59 DC 11/03/18 00:18 1,000 MLS/HR Tramadol HCl (Ultram) 50 mg 1X ONCE 11/03/18 01:15 11/03/18 01:26 DC 11/03/18 01:16 50 MG Allergies Allergies Allergies Coded Allergies Type Severity Reaction Last Updated Verified Penicillins Allergy Severe ANAPHYLAXIS, cefepime ok 11/12/16 Yes doxycycline Allergy Intermediate 11/12/16 Yes fentanyl Allergy Intermediate 11/12/16 Yes I S O L A T I O N *CONTACT* Allergy Unknown 08/12/18 Yes hydrocodone Adverse Reaction Intermediate itching 11/12/16 Yes cefepime Adverse Reaction Mild "makes her feel sick" 07/08/18 Yes Physical Exam Physical Exam Constitutional: Well developed, well nourished, no acute distress, non-toxic appearance. [] HENT: Normocephalic, atraumatic, bilateral external ears normal, oropharynx moist, no oral exudates, nose normal. [] Eyes: PERRLA, EOMI, conjunctiva normal, no discharge. [] Neck: Normal range of motion, no tenderness, supple, no stridor. [] Cardiovascular: Regular rate and rhythm[] Lungs & Thorax: Bilateral breath sounds clear to auscultation [] Abdomen: Bowel sounds normal, soft, with lower abdominal tenderness. [] Skin: Warm, dry, no erythema, no rash. [] Extremities: No tenderness, no cyanosis, no clubbing, ROM intact, no edema. [] Neurologic: Alert and oriented X 3, no focal deficits noted. [] Current Patient Data Vital Signs Vital Signs Date Time Temp Pulse Resp B/P (MAP) Pulse Ox O2 Delivery O2 Flow Rate FiO2 11/03/18 02:17 110 20 146/75 (98) 98 Room Air 11/02/18 23:35 98.4 98.4 Lab Values Laboratory Tests Test 11/02/18 23:36 11/02/18 23:50 11/02/18 23:54 11/03/18 00:10 Urine Collection Type Unknown Urine Color Yellow Urine Clarity Clear Urine pH 6.5 Urine Specific [place] 1.020 Urine Protein Negative mg/dL (NEG-TRACE) Urine Glucose (UA) >=1000 mg/dL (NEG) Urine Ketones (Stick) Negative mg/dL (NEG) Urine Blood Large (NEG) Urine Nitrite Negative (NEG) Urine Bilirubin Negative (NEG) Urine Urobilinogen Dipstick 0.2 mg/dL (0.2 mg/dL) Urine Leukocyte Esterase Negative (NEG) Urine RBC Tntc /HPF (0-2) Urine WBC Occ /HPF (0-4) Urine Squamous Epithelial Cells Mod /LPF Urine Bacteria 0 /HPF (0-FEW) Glucose (Fingerstick) 590 mg/dL (70-99) *H POC Urine HCG, Qualitative Hcg negative (Negative) White Blood Count 4.4 x10^3/uL (4.0-11.0) Red Blood Count 4.33 x10^6/uL (3.50-5.40) Hemoglobin 10.6 g/dL (12.0-15.5) L Hematocrit 33.8 % (36.0-47.0) L Mean Corpuscular Volume 78 fL (79-100) L Mean Corpuscular Hemoglobin 25 pg (25-35) Mean Corpuscular Hemoglobin Concent 31 g/dL (31-37) Red Cell Distribution Width 16.8 % (11.5-14.5) H Platelet Count 269 x10^3/uL (140-400) Neutrophils (%) (Auto) 59 % (31-73) Lymphocytes (%) (Auto) 32 % (24-48) Monocytes (%) (Auto) 8 % (0-9) Eosinophils (%) (Auto) 1 % (0-3) Basophils (%) (Auto) 1 % (0-3) Neutrophils # (Auto) 2.6 x10^3uL (1.8-7.7) Lymphocytes # (Auto) 1.4 x10^3/uL (1.0-4.8) Monocytes # (Auto) 0.3 x10^3/uL (0.0-1.1) Eosinophils # (Auto) 0.1 x10^3/uL (0.0-0.7) Basophils # (Auto) 0.0 x10^3/uL (0.0-0.2) Sodium Level 128 mmol/L (136-145) L Potassium Level 4.2 mmol/L (3.5-5.1) Chloride Level 91 mmol/L (98-107) L Carbon Dioxide Level 24 mmol/L (21-32) Anion Gap 13 (6-14) Blood Urea Nitrogen 6 mg/dL (7-20) L Creatinine 0.8 mg/dL (0.6-1.0) Estimated GFR (Cockcroft-Gault) 84.8 BUN/Creatinine Ratio 8 (6-20) Glucose Level 565 mg/dL (70-99) *H Calcium Level 8.7 mg/dL (8.5-10.1) Total Bilirubin 0.4 mg/dL (0.2-1.0) Aspartate Amino Transferase (AST) 36 U/L (15-37) Alanine Aminotransferase (ALT) 27 U/L (14-59) Alkaline Phosphatase 504 U/L (46-116) H Total Protein 7.9 g/dL (6.4-8.2) Albumin 3.1 g/dL (3.4-5.0) L Albumin/Globulin Ratio 0.6 (1.0-1.7) L Acetone Level Neg (NEG) Test 11/03/18 01:29 Glucose (Fingerstick) 351 mg/dL (70-99) H Laboratory Tests 11/03/18 00:10 Laboratory Tests 11/03/18 00:10 EKG EKG [] Radiology/Procedures Radiology/Procedures [] Course & Med Decision Making Course & Med Decision Making Pertinent Labs and Imaging studies reviewed. (See chart for details) [] Dragon Disclaimer Dragon Disclaimer This electronic medical record was generated, in whole or in part, using a voice recognition dictation system. Departure Departure Impression: Primary Impression: Hyperglycemia due to type 1 diabetes mellitus Additional Impression: Intractable nausea and vomiting Disposition: ADMITTED INPATIENT Admitting Physician: Faheem Pedro Condition: IMPROVED Referrals: NO PCP (PCP) Problem Qualifiers Additional Impression: Intractable nausea and vomiting Vomiting type: unspecified Qualified Codes: R11.2 - Nausea with vomiting, unspecified DANA GONZALES Jr. DO Nov 03, 2018 02:20
[2018-11-03] MEDS ORDERED: ONDANSETRON PF 4 MG/2 ML VIAL. IV PRN (02:30)
--- NOTE | 2018-11-03 03:24 | RAD ---
Ultrasound pelvis complete transabdominal HISTORY: Pelvic pain and recent UTI and right oophorectomy Sonographic examination of the pelvis and perform a trans-L technique and multiple static images were obtained Uterus measures 9.5 x 5.6 x 3.7 cm. The endometrium appears normal and measures 5.6 mm in thickness. The left ovary measures 2.5 x 3 0.0, 0.6 centers and contains a dominant follicle measures 15 x 15 x 21 mm. There is normal blood flow. The urinary bladder is fairly distended and measures 21 cm x 11 cm x 16 cm. The prevoid volume is 2 L. The post void volume is 1.15 L. IMPRESSION: Large post void volume of the bladder. Electronically signed by: Delio Soriano III, MD (11/03/2018 3:21 AM) [facility]
--- NOTE | 2018-11-03 03:35 | NUR ---
The patient, SAMANTHA DOWD, 27 y/o, F admitted by EDGARD GUTIERREZ III, DO, was given written information regarding hospital policies, unit procedures and contact persons. Valuables were checked and left with patient.
[2018-11-03] MEDS: MORPHINE SULFATE 2 MG/ML VIAL. IV PRN ×5 (04:20→23:21)
[2018-11-03] MEDS: IV NORMAL SALINE 1000ML BAG 1,000 ML IV SCH ×3 (06:40→22:41)
[2018-11-03 07:00] VITALS: BP 128/85
--- NOTE | 2018-11-03 07:53 | PDOC1 ---
History and Physical Date of Admission Date of Admission DATE: 11/03/18 TIME: 07:50 Identification/Chief Complaint Chief Complaint N/V/D Source Source: Patient History of Present Illness History of Present Illness Ms. Smith is a 27 year old female who presented with left flank pain, HHS. Has complaint of lower abdominal pain with nausea and vomiting along with liquidy stools. She states that symptoms have been present for the last few days and have progressively gotten worse. She states that she has not been able to keep any of her medications down. She states that this morning when she woke up her blood sugar was in the 40s and then she checked her blood sugar again this evening and it read high. She rates the pain in her abdomen at a 10 out of 10. She describes a sharp and stabbing in nature. She also indicates that it's very painful to urinate and she has to strain to urinate. She states that she was recently diagnosed with urinary tract infection and started on Cipro. Previously noted with an acute on chronic hemorrhagic ovarian cyst, intractable pain requiring IV medication. Seen by Deputy City Clerk, found on US to have a 4.2 cm complex suspected cystic lesion within the left ovary. Also, notably, Hepatosplenomegaly and hyponatremia and leukopenia were notable as well, no etiology found. 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 I have made it clear that she made the choice to return to this hospital for care despite this and she admits she likes the care here. She does live in [place] and passes multiple hospitals on the way here. Past Medical History Cardiovascular: HTN Psych: Anxiety Rheumatologic: No pertinent hx Endocrine: Diabetes, Other Past Surgical History Past Surgical History: Appendectomy, Cholecystectomy, , Hernia Repair , Other Family History Family History: Hypertension, Other Family History: Parent Social History Smoke: No ALCOHOL: none Drugs: None Current Problem List Problem List Problems Medical Problems: (1) Hyperglycemia due to type 1 diabetes mellitus Status: Acute (2) Intractable nausea and vomiting Status: Acute Current Medications Current Medications Current Medications Sodium Chloride 1,000 ml @ 1,000 mls/hr Q1H IV Last administered on 11/03/18at 00:18; Start 11/03/18 at 00:00; Stop 11/03/18 at 00:59; Status DC Insulin Human Regular (HumuLIN R VIAL) 10 unit 1X ONCE IV Last administered on 11/03/18at 00:17; Start 11/03/18 at 00:15; Stop 11/03/18 at 00:16; Status DC Ondansetron HCl (Zofran) 4 mg 1X ONCE IV Last administered on 11/03/18at 01:05; Start 11/03/18 at 01:15; Stop 11/03/18 at 01:16; Status DC Ondansetron HCl (Zofran) 4 mg STK-MED ONCE .ROUTE ; Start 11/03/18 at 01:03; Stop 11/03/18 at 01:04; Status DC Tramadol HCl (Ultram) 50 mg 1X ONCE PO Last administered on 11/03/18at 01:16; Start 11/03/18 at 01:15; Stop 11/03/18 at 01:26; Status DC Ketorolac Tromethamine (Toradol 15mg Vial) 15 mg 1X ONCE IV Last administered on 11/03/18at 02:11; Start 11/03/18 at 02:00; Stop 11/03/18 at 02:01; Status DC Morphine Sulfate (Morphine Sulfate) 2 mg 1X ONCE IV Last administered on at 02:10; Start 11/03/18 at 02:00; Stop 11/03/18 at 02:01; Status DC Ondansetron HCl (Zofran) 4 mg PRN Q8HRS PRN IV NAUSEA/VOMITING; Start 11/03/18 at 02:30; Stop 11/04/18 at 02:29 Morphine Sulfate (Morphine Sulfate) 2 mg PRN Q2HR PRN IV PAIN Last administered on 11/03/18at 04:20; Start 11/03/18 at 02:30; Stop 11/04/18 at 02:29 Sodium Chloride 1,000 ml @ 125 mls/hr Q8H IV Last administered on 11/03/18at 06: 40; Start 11/03/18 at 02:30; Stop 11/04/18 at 02:29 Active Scripts Active Phenergan (Promethazine HCl) 25 Mg Supp.rect 25 Mg RC Q8HRS Reported Seroquel (Quetiapine Fumarate) 100 Mg Tablet 1 Tab PO QHS Ferrous Sulfate 325 Mg Tablet 325 Mg PO BID Humalog (Insulin Lispro) 100 Unit/1 Ml Cartridge 30 Unit SQ TIDWMEALS Lantus Solostar (Insulin Glargine,Hum.rec.anlog) 100 Unit/1 Ml Insuln.pen 80 Unit SQ Q12HR Allergies Allergies: Coded Allergies: Penicillins (Verified Allergy, Severe, ANAPHYLAXIS, cefepime ok, 11/12/16) doxycycline (Verified Allergy, Intermediate, 11/12/16) fentanyl (Verified Allergy, Intermediate, 11/12/16) I S O L A T I O N *CONTACT* (Verified Allergy, Unknown, 11/03/18) VRE/ESBL cefepime (Verified Adverse Reaction, Intermediate, "makes her feel sick", 11/03/18) hydrocodone (Verified Adverse Reaction, Intermediate, itching, 11/12/16) ROS General: YES: Fatigue, Malaise, Appetite; No: Chills, Night Sweats, Other PSYCHOLOGICAL ROS: YES: Anxiety, Behavioral Disorder; No: Concentration difficultie, Decreased libido, Depression, Disorientation, Hallucinations, Hostility, Irritablity, Memory difficulties, Mood Swings, Obsessive thoughts, Physical abuse, Sexual abuse, Sleep disturbances, Suicidal ideation, Other Eyes: No Blurry vision, No Decreased vision, No Double vision, No Dry eyes, No Excessive tearing, No Eye Pain, No Itchy Eyes, No Loss of vision, No Photophobia , No Scotomata, No Uses contacts, No Uses glasses, No Other HEENT: No: Heacaches, Visual Changes, Hearing change, Nasal congestion, Nasal discharge, Oral lesions, Sinus pain, Sore Throat, Epistaxis, Sneezing, Snoring, Tinnitus, Vertigo, Vocal changes, Other ALLERGY AND IMMUNOLOGY: No: Hives, Insect Bite Sensitivity, Itchy/Watery Eyes, Nasal Congestion, Post Nasal Drip, Seasonal Allergies, Other Hematological and Lymphatic: No: Bleeding Problems, Blood Clots, Blood Transfusions, Brusing, Night Sweats, Pallor, Swollen Lymph Nodes, Other ENDOCRINE: YES: Malaise/lethargy; No: Breast Changes, Galactorrhea, Hair Pattern Changes, Hot Flashes, Mood Swings, Palpitations, Polydipsia/polyuria, Skin Changes, Temperature Intolerance , Unexpected Weight Changes, Other Breast: No New/Changing Breast Lumps, No Nipple changes, No Nipple discharge, No Other Respiratory: No: Cough, Hemoptysis, Orthopnea, Pleuritic Pain, Shortness of breath, SOB with excertion, Sputum Changes, Stridor, Tachypnea, Wheezing, Other Cardiovascular: No Chest Pain, No Palpitations, No Orthopnea, No Paroxysmal Noc. Dyspnea, No Edema, No Lt Headedness, No Other Gastrointestinal: Yes Nausea, Yes Vomiting, Yes Abdominal Pain, Yes Diarrhea; No Constipation, No Melena, No Hematochezia, No Other Genitourinary: YES Dysuria; No Frequency, No Incontinence, No Hematuria, No Retention, No Discharge, No Urgency, No Pain, No Flank Pain, No Other, No , No , No , No , No , No , No Musculoskeletal: No Gait Disturbance, No Joint Pain, No Joint Stiffness, No Joint Swelling, No Muscle Pain, No Muscular Weakness, No Pain In:, No Swelling In:, No Other Neurological: No Behavorial Changes, No Bowel/Bladder ControlChng, No Confusion , No Dizziness, No Gait Disturbance, No Headaches, No Impaired Coord/balance, No Memory Loss, No Numbness/Tingling, No Seizures, No Speech Problems, No Tremors, No Visual Changes, No Weakness, No Other Skin: No Dry Skin, No Eczema, No Hair Changes, No Lumps, No Mole Changes, No Mottling, No Nail Changes, No Pruritus, No Rash, No Skin Lesion Changes, No Other, No Acne Physical Exam General: Alert, Cooperative, mild distress HEENT: Atraumatic, PERRLA, EOMI, Mucous membr. moist/pink Lungs: Clear to auscultation, Normal air movement Heart: S1S2, RRR, no gallops Abdomen: Normal bowel sounds, Other (Hepatosplenomegaly, LLQ pain) Rectal Exam: not examined Extremities: No clubbing, No cyanosis, No edema, Normal pulses, No tenderness/ swelling Skin: No rashes, No breakdown, No significant lesion Neuro: Strength at 5/5 X4 ext, Normal tone, Cranial nerves 3-12 NL, Reflexes 2+ , Other (Decreased peripheral sensation) Psych/Mental Status: Mental status NL, Mood NL Vitals Vitals Vital Signs Date Time Temp Pulse Resp B/P (MAP) Pulse Ox O2 Delivery O2 Flow Rate FiO2 11/03/18 05:00 Room Air 11/03/18 02:17 110 20 146/75 (98) 98 11/02/18 23:35 98.4 98.4 Labs Labs Laboratory Tests Test 11/02/18 23:36 11/02/18 23:50 11/02/18 23:54 11/03/18 00:10 Urine Collection Type Unknown Urine Color Yellow Urine Clarity Clear Urine pH 6.5 Urine Specific [place] 1.020 Urine Protein Negative mg/dL (NEG-TRACE) Urine Glucose (UA) >=1000 mg/dL (NEG) Urine Ketones (Stick) Negative mg/dL (NEG) Urine Blood Large (NEG) Urine Nitrite Negative (NEG) Urine Bilirubin Negative (NEG) Urine Urobilinogen Dipstick 0.2 mg/dL (0.2 mg/dL) Urine Leukocyte Esterase Negative (NEG) Urine RBC Tntc /HPF (0-2) Urine WBC Occ /HPF (0-4) Urine Squamous Epithelial Cells Mod /LPF Urine Bacteria 0 /HPF (0-FEW) Glucose (Fingerstick) 590 mg/dL (70-99) Bedside Urine HCG, Qualitative Hcg negative (Negative) White Blood Count 4.4 x10^3/uL (4.0-11.0) Red Blood Count 4.33 x10^6/uL (3.50-5.40) Hemoglobin 10.6 g/dL (12.0-15.5) Hematocrit 33.8 % (36.0-47.0) Mean Corpuscular Volume 78 fL (79-100) Mean Corpuscular Hemoglobin 25 pg (25-35) Mean Corpuscular Hemoglobin Concent 31 g/dL (31-37) Red Cell Distribution Width 16.8 % (11.5-14.5) Platelet Count 269 x10^3/uL (140-400) Neutrophils (%) (Auto) 59 % (31-73) Lymphocytes (%) (Auto) 32 % (24-48) Monocytes (%) (Auto) 8 % (0-9) Eosinophils (%) (Auto) 1 % (0-3) Basophils (%) (Auto) 1 % (0-3) Neutrophils # (Auto) 2.6 x10^3uL (1.8-7.7) Lymphocytes # (Auto) 1.4 x10^3/uL (1.0-4.8) Monocytes # (Auto) 0.3 x10^3/uL (0.0-1.1) Eosinophils # (Auto) 0.1 x10^3/uL (0.0-0.7) Basophils # (Auto) 0.0 x10^3/uL (0.0-0.2) Sodium Level 128 mmol/L (136-145) Potassium Level 4.2 mmol/L (3.5-5.1) Chloride Level 91 mmol/L (98-107) Carbon Dioxide Level 24 mmol/L (21-32) Anion Gap 13 (6-14) Blood Urea Nitrogen 6 mg/dL (7-20) Creatinine 0.8 mg/dL (0.6-1.0) Estimated GFR (Cockcroft-Gault) 84.8 BUN/Creatinine Ratio 8 (6-20) Glucose Level 565 mg/dL (70-99) Calcium Level 8.7 mg/dL (8.5-10.1) Total Bilirubin 0.4 mg/dL (0.2-1.0) Aspartate Amino Transf (AST/SGOT) 36 U/L (15-37) Alanine Aminotransferase (ALT/SGPT) 27 U/L (14-59) Alkaline Phosphatase 504 U/L (46-116) Total Protein 7.9 g/dL (6.4-8.2) Albumin 3.1 g/dL (3.4-5.0) Albumin/Globulin Ratio 0.6 (1.0-1.7) Acetone Level Neg (NEG) Test 11/03/18 01:29 Glucose (Fingerstick) 351 mg/dL (70-99) Laboratory Tests Test 11/02/18 23:36 11/02/18 23:50 11/02/18 23:54 11/03/18 00:10 Urine Collection Type Unknown Urine Color Yellow Urine Clarity Clear Urine pH 6.5 Urine Specific [place] 1.020 Urine Protein Negative mg/dL (NEG-TRACE) Urine Glucose (UA) >=1000 mg/dL (NEG) Urine Ketones (Stick) Negative mg/dL (NEG) Urine Blood Large (NEG) Urine Nitrite Negative (NEG) Urine Bilirubin Negative (NEG) Urine Urobilinogen Dipstick 0.2 mg/dL (0.2 mg/dL) Urine Leukocyte Esterase Negative (NEG) Urine RBC Tntc /HPF (0-2) Urine WBC Occ /HPF (0-4) Urine Squamous Epithelial Cells Mod /LPF Urine Bacteria 0 /HPF (0-FEW) Glucose (Fingerstick) 590 mg/dL (70-99) Bedside Urine HCG, Qualitative Hcg negative (Negative) White Blood Count 4.4 x10^3/uL (4.0-11.0) Red Blood Count 4.33 x10^6/uL (3.50-5.40) Hemoglobin 10.6 g/dL (12.0-15.5) Hematocrit 33.8 % (36.0-47.0) Mean Corpuscular Volume 78 fL (79-100) Mean Corpuscular Hemoglobin 25 pg (25-35) Mean Corpuscular Hemoglobin Concent 31 g/dL (31-37) Red Cell Distribution Width 16.8 % (11.5-14.5) Platelet Count 269 x10^3/uL (140-400) Neutrophils (%) (Auto) 59 % (31-73) Lymphocytes (%) (Auto) 32 % (24-48) Monocytes (%) (Auto) 8 % (0-9) Eosinophils (%) (Auto) 1 % (0-3) Basophils (%) (Auto) 1 % (0-3) Neutrophils # (Auto) 2.6 x10^3uL (1.8-7.7) Lymphocytes # (Auto) 1.4 x10^3/uL (1.0-4.8) Monocytes # (Auto) 0.3 x10^3/uL (0.0-1.1) Eosinophils # (Auto) 0.1 x10^3/uL (0.0-0.7) Basophils # (Auto) 0.0 x10^3/uL (0.0-0.2) Sodium Level 128 mmol/L (136-145) Potassium Level 4.2 mmol/L (3.5-5.1) Chloride Level 91 mmol/L (98-107) Carbon Dioxide Level 24 mmol/L (21-32) Anion Gap 13 (6-14) Blood Urea Nitrogen 6 mg/dL (7-20) Creatinine 0.8 mg/dL (0.6-1.0) Estimated GFR (Cockcroft-Gault) 84.8 BUN/Creatinine Ratio 8 (6-20) Glucose Level 565 mg/dL (70-99) Calcium Level 8.7 mg/dL (8.5-10.1) Total Bilirubin 0.4 mg/dL (0.2-1.0) Aspartate Amino Transf (AST/SGOT) 36 U/L (15-37) Alanine Aminotransferase (ALT/SGPT) 27 U/L (14-59) Alkaline Phosphatase 504 U/L (46-116) Total Protein 7.9 g/dL (6.4-8.2) Albumin 3.1 g/dL (3.4-5.0) Albumin/Globulin Ratio 0.6 (1.0-1.7) Acetone Level Neg (NEG) Test 11/03/18 01:29 Glucose (Fingerstick) 351 mg/dL (70-99) Images Images Abdominal US/TVUS - Uterus measures 9.5 x 5.6 x 3.7 cm. The endometrium appears normal and measures 5.6 mm in thickness. The left ovary measures 2.5 x 3 0.0, 0.6 centers and contains a dominant follicle measures 15 x 15 x 21 mm. There is normal blood flow. The urinary bladder is fairly distended and measures 21 cm x 11 cm x 16 cm. The prevoid volume is 2 L. The post void volume is 1.15 L. IMPRESSION: Large post void volume of the bladder. VTE Prophylaxis Ordered VTE Prophylaxis Devices: Yes VTE Pharmacological Prophylaxi: Yes Assessment/Plan Assessment/Plan A/P: N/V/D - likely gastroenteritis worsening glycemic control, probably viral. intractable nausea/vomiting/diarrhea will need IV zofran, IVF, pain control. ADAT hyperglycemia. uncontrolled was brought down with basal bolus plus regimen. 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 JEFFERSON FAULKNER MD Nov 03, 2018 07:52
[2018-11-03] MEDS: INSULIN LISPRO 300 UNITS/3 ML INSULN.PEN. SQ SCH ×6 (08:00→17:00)
[2018-11-03] MEDS ORDERED: DEXTROSE 50% 25 GM / 50ML DISP.SYRIN. IV PRN (08:00)
[2018-11-03] MEDS: FERROUS SULFATE 325 MG TABLET. PO SCH ×2 (09:00→20:27)
[2018-11-03] MEDS: INSULIN GLARGINE 300 UNITS/3 ML INSULN.PEN. SQ SCH ×2 (09:09→20:58)
--- NOTE | 2018-11-03 10:18 | NUR ---
IP: Pt has a hx of VRE in urine from 08/15/18 and ESBL in urine on 10/11/18. Pt to be in contact precautions until there are 2 negative urine cultures 7 days apart without antibiotics.
[2018-11-03 11:00] VITALS: BP 130/78
[2018-11-03] MEDS: PROMETHAZINE 25 MG SUPP.RECT. RC SCH ×2 (14:00→22:00)
[2018-11-03 15:00] VITALS: BP 120/81
--- NOTE | 2018-11-03 15:12 | NUR ---
Non admin 1400 Phenergan. PT no longer NPO
--- NOTE | 2018-11-03 16:43 | NUR ---
Straight cath with 15 g catheter per SN LATASHA Joseph. Instructor at bedside during entire procedure. Sterile technique used. PT had 1200 ml of slighty hazy clear urine obtained. PT tolerated well. Primary nurse informed. Will monitor and support.
[2018-11-03] MEDS: BETHANECHOL CHLORIDE 10 MG TABLET. PO SCH (17:05)
[2018-11-03 19:00] VITALS: BP 127/83
[2018-11-03] MEDS: PROMETHAZINE 12.5 MG TABLET. PO PRN (20:27)
--- NOTE | 2018-11-03 21:00 | NUR ---
Non-Administered Phenergan Supp. Gave pt Phenergan PO at 2026. Pt tolerated PO medication with no N/V. Will continue to monitor.
[2018-11-03] MEDS: QUEtiapine 100 MG TABLET. PO SCH (22:41)
[2018-11-03 22:48] VITALS: BP 119/71
[2018-11-04 02:54] VITALS: BP 112/71
[2018-11-04] MEDS: MORPHINE SULFATE 2 MG/ML VIAL. IV PRN ×7 (03:58→23:39)
[2018-11-04] MEDS: PROMETHAZINE 25 MG SUPP.RECT. RC SCH ×3 (05:43→19:52)
--- NOTE | 2018-11-04 05:44 | NUR ---
Pt ref Promethozine Supp. Stated that she is only a little nauseated at this time. Will continue to monitor.
[2018-11-04 06:29] LABS: BASO % 0 % (0-3); EOS % 0 % (0-3); HEMATOCRIT 31.3 % (36.0-47.0); HEMOGLOBIN 10.2 g/dL (12.0-15.5); LYMPH # 1.2 x10^3/uL (1.0-4.8); LYMPH % 33 % (24-48); MEAN CORPUSCULAR HEMOGLOBIN 25 pg (25-35); MEAN CORPUSCULAR HGB CONC 33 g/dL (31-37); MEAN CORPUSCULAR VOLUME 77 fL (79-100); MONO # 0.3 x10^3/uL (0.0-1.1); MONO % 7 % (0-9); NEUT # 2.2 x10^3uL (1.8-7.7); NEUT % 60 % (31-73); PLATELET COUNT 232 x10^3/uL (140-400); RED BLOOD COUNT 4.08 x10^6/uL (3.50-5.40); RED CELL DISTRIBUTION WIDTH 17.2 % (11.5-14.5); WHITE BLOOD COUNT 3.7 x10^3/uL (4.0-11.0)
[2018-11-04 06:52] LABS: CALCIUM 7.9 mg/dL (8.5-10.1); CREATININE 0.5 mg/dL (0.6-1.0); GFR 145.9; POTASSIUM 4.2 mmol/L (3.5-5.1)
[2018-11-04 07:04] VITALS: BP 101/58
[2018-11-04] MEDS: INSULIN LISPRO 300 UNITS/3 ML INSULN.PEN. SQ SCH ×6 (08:00→19:46)
--- NOTE | 2018-11-04 08:34 | PDOC ---
PROGRESS NOTES Chief Complaint Chief Complaint A/P: N/V/D - likely gastroenteritis worsening glycemic control, probably viral. intractable nausea/vomiting/diarrhea will need IV zofran, IVF, pain control. ADAT hyperglycemia. uncontrolled was brought down with basal bolus plus regimen. 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 History of Present Illness History of Present Illness Ms. Smith is a 27 year old female who presented with left flank pain, HHS. Has complaint of lower abdominal pain with nausea and vomiting along with liquidy stools. She states that symptoms have been present for the last few days and have progressively gotten worse. She states that she has not been able to keep any of her medications down. She states that this morning when she woke up her blood sugar was in the 40s and then she checked her blood sugar again this evening and it read high. She rates the pain in her abdomen at a 10 out of 10. She describes a sharp and stabbing in nature. She also indicates that it's very painful to urinate and she has to strain to urinate. She states that she was recently diagnosed with urinary tract infection and started on Cipro. Previously noted with an acute on chronic hemorrhagic ovarian cyst, intractable pain requiring IV medication. Seen by [employer] Director, found on US to have a 4.2 cm complex suspected cystic lesion within the left ovary. Also, notably, Hepatosplenomegaly and hyponatremia and leukopenia were notable as well, no etiology found. 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 I have made it clear that she made the choice to return to this hospital for care despite this and she admits she likes the care here. She does live in [place] and passes multiple hospitals on the way here. Had 1200cc straight cath after 800cc urine output yesterday. Nausea better Vitals Vitals Vital Signs Date Time Temp Pulse Resp B/P (MAP) Pulse Ox O2 Delivery O2 Flow Rate FiO2 4/5/19 07:04 98.8 113 18 101/58 (72) 92 Room Air 98.8 Physical Exam General: Alert, Cooperative, mild distress Lungs: Clear Abdomen: Normal bowel sounds, Other (Hepatosplenomegaly, LLQ pain) Extremities: No clubbing, No cyanosis, No edema, Normal pulses, No tenderness/ swelling Skin: No rashes, No breakdown, No significant lesion Labs LABS Laboratory Tests Test 11/03/18 10:29 11/03/18 16:52 11/03/18 20:54 11/04/18 06:15 Glucose (Fingerstick) 135 mg/dL (70-99) 75 mg/dL (70-99) 76 mg/dL (70-99) White Blood Count 3.7 x10^3/uL (4.0-11.0) Red Blood Count 4.08 x10^6/uL (3.50-5.40) Hemoglobin 10.2 g/dL (12.0-15.5) Hematocrit 31.3 % (36.0-47.0) Mean Corpuscular Volume 77 fL (79-100) Mean Corpuscular Hemoglobin 25 pg (25-35) Mean Corpuscular Hemoglobin Concent 33 g/dL (31-37) Red Cell Distribution Width 17.2 % (11.5-14.5) Platelet Count 232 x10^3/uL (140-400) Neutrophils (%) (Auto) 60 % (31-73) Lymphocytes (%) (Auto) 33 % (24-48) Monocytes (%) (Auto) 7 % (0-9) Eosinophils (%) (Auto) 0 % (0-3) Basophils (%) (Auto) 0 % (0-3) Neutrophils # (Auto) 2.2 x10^3uL (1.8-7.7) Lymphocytes # (Auto) 1.2 x10^3/uL (1.0-4.8) Monocytes # (Auto) 0.3 x10^3/uL (0.0-1.1) Eosinophils # (Auto) 0.0 x10^3/uL (0.0-0.7) Basophils # (Auto) 0.0 x10^3/uL (0.0-0.2) Sodium Level 135 mmol/L (136-145) Potassium Level 4.2 mmol/L (3.5-5.1) Chloride Level 102 mmol/L (98-107) Carbon Dioxide Level 24 mmol/L (21-32) Anion Gap 9 (6-14) Blood Urea Nitrogen 4 mg/dL (7-20) Creatinine 0.5 mg/dL (0.6-1.0) Estimated GFR (Cockcroft-Gault) 145.9 Glucose Level 164 mg/dL (70-99) Calcium Level 7.9 mg/dL (8.5-10.1) Test 11/04/18 07:09 Glucose (Fingerstick) 139 mg/dL (70-99) Assessment and Plan Assessmemt and Plan Problems Medical Problems: (1) Hyperglycemia due to type 1 diabetes mellitus Status: Acute (2) Intractable nausea and vomiting Status: Acute Comment Review of Relevant I have reviewed the following items lizbeth (where applicable) has been applied. Labs Laboratory Tests Test 11/02/18 23:36 11/02/18 23:50 11/02/18 23:54 11/03/18 00:10 Urine Collection Type Unknown Urine Color Yellow Urine Clarity Clear Urine pH 6.5 Urine Specific [place] 1.020 Urine Protein Negative mg/dL (NEG-TRACE) Urine Glucose (UA) >=1000 mg/dL (NEG) Urine Ketones (Stick) Negative mg/dL (NEG) Urine Blood Large (NEG) Urine Nitrite Negative (NEG) Urine Bilirubin Negative (NEG) Urine Urobilinogen Dipstick 0.2 mg/dL (0.2 mg/dL) Urine Leukocyte Esterase Negative (NEG) Urine RBC Tntc /HPF (0-2) Urine WBC Occ /HPF (0-4) Urine Squamous Epithelial Cells Mod /LPF Urine Bacteria 0 /HPF (0-FEW) Glucose (Fingerstick) 590 mg/dL (70-99) Bedside Urine HCG, Qualitative Hcg negative (Negative) White Blood Count 4.4 x10^3/uL (4.0-11.0) Red Blood Count 4.33 x10^6/uL (3.50-5.40) Hemoglobin 10.6 g/dL (12.0-15.5) Hematocrit 33.8 % (36.0-47.0) Mean Corpuscular Volume 78 fL (79-100) Mean Corpuscular Hemoglobin 25 pg (25-35) Mean Corpuscular Hemoglobin Concent 31 g/dL (31-37) Red Cell Distribution Width 16.8 % (11.5-14.5) Platelet Count 269 x10^3/uL (140-400) Neutrophils (%) (Auto) 59 % (31-73) Lymphocytes (%) (Auto) 32 % (24-48) Monocytes (%) (Auto) 8 % (0-9) Eosinophils (%) (Auto) 1 % (0-3) Basophils (%) (Auto) 1 % (0-3) Neutrophils # (Auto) 2.6 x10^3uL (1.8-7.7) Lymphocytes # (Auto) 1.4 x10^3/uL (1.0-4.8) Monocytes # (Auto) 0.3 x10^3/uL (0.0-1.1) Eosinophils # (Auto) 0.1 x10^3/uL (0.0-0.7) Basophils # (Auto) 0.0 x10^3/uL (0.0-0.2) Sodium Level 128 mmol/L (136-145) Potassium Level 4.2 mmol/L (3.5-5.1) Chloride Level 91 mmol/L (98-107) Carbon Dioxide Level 24 mmol/L (21-32) Anion Gap 13 (6-14) Blood Urea Nitrogen 6 mg/dL (7-20) Creatinine 0.8 mg/dL (0.6-1.0) Estimated GFR (Cockcroft-Gault) 84.8 BUN/Creatinine Ratio 8 (6-20) Glucose Level 565 mg/dL (70-99) Calcium Level 8.7 mg/dL (8.5-10.1) Total Bilirubin 0.4 mg/dL (0.2-1.0) Aspartate Amino Transf (AST/SGOT) 36 U/L (15-37) Alanine Aminotransferase (ALT/SGPT) 27 U/L (14-59) Alkaline Phosphatase 504 U/L (46-116) Total Protein 7.9 g/dL (6.4-8.2) Albumin 3.1 g/dL (3.4-5.0) Albumin/Globulin Ratio 0.6 (1.0-1.7) Acetone Level Neg (NEG) Test 11/03/18 01:29 11/03/18 07:37 11/03/18 10:29 11/03/18 16:52 Glucose (Fingerstick) 351 mg/dL (70-99) 173 mg/dL (70-99) 135 mg/dL (70-99) 75 mg/dL (70-99) Test 11/03/18 20:54 11/04/18 06:15 11/04/18 07:09 Glucose (Fingerstick) 76 mg/dL (70-99) 139 mg/dL (70-99) White Blood Count 3.7 x10^3/uL (4.0-11.0) Red Blood Count 4.08 x10^6/uL (3.50-5.40) Hemoglobin 10.2 g/dL (12.0-15.5) Hematocrit 31.3 % (36.0-47.0) Mean Corpuscular Volume 77 fL (79-100) Mean Corpuscular Hemoglobin 25 pg (25-35) Mean Corpuscular Hemoglobin Concent 33 g/dL (31-37) Red Cell Distribution Width 17.2 % (11.5-14.5) Platelet Count 232 x10^3/uL (140-400) Neutrophils (%) (Auto) 60 % (31-73) Lymphocytes (%) (Auto) 33 % (24-48) Monocytes (%) (Auto) 7 % (0-9) Eosinophils (%) (Auto) 0 % (0-3) Basophils (%) (Auto) 0 % (0-3) Neutrophils # (Auto) 2.2 x10^3uL (1.8-7.7) Lymphocytes # (Auto) 1.2 x10^3/uL (1.0-4.8) Monocytes # (Auto) 0.3 x10^3/uL (0.0-1.1) Eosinophils # (Auto) 0.0 x10^3/uL (0.0-0.7) Basophils # (Auto) 0.0 x10^3/uL (0.0-0.2) Sodium Level 135 mmol/L (136-145) Potassium Level 4.2 mmol/L (3.5-5.1) Chloride Level 102 mmol/L (98-107) Carbon Dioxide Level 24 mmol/L (21-32) Anion Gap 9 (6-14) Blood Urea Nitrogen 4 mg/dL (7-20) Creatinine 0.5 mg/dL (0.6-1.0) Estimated GFR (Cockcroft-Gault) 145.9 Glucose Level 164 mg/dL (70-99) Calcium Level 7.9 mg/dL (8.5-10.1) Laboratory Tests Test 11/03/18 10:29 11/03/18 16:52 11/03/18 20:54 11/04/18 06:15 Glucose (Fingerstick) 135 mg/dL (70-99) 75 mg/dL (70-99) 76 mg/dL (70-99) White Blood Count 3.7 x10^3/uL (4.0-11.0) Red Blood Count 4.08 x10^6/uL (3.50-5.40) Hemoglobin 10.2 g/dL (12.0-15.5) Hematocrit 31.3 % (36.0-47.0) Mean Corpuscular Volume 77 fL (79-100) Mean Corpuscular Hemoglobin 25 pg (25-35) Mean Corpuscular Hemoglobin Concent 33 g/dL (31-37) Red Cell Distribution Width 17.2 % (11.5-14.5) Platelet Count 232 x10^3/uL (140-400) Neutrophils (%) (Auto) 60 % (31-73) Lymphocytes (%) (Auto) 33 % (24-48) Monocytes (%) (Auto) 7 % (0-9) Eosinophils (%) (Auto) 0 % (0-3) Basophils (%) (Auto) 0 % (0-3) Neutrophils # (Auto) 2.2 x10^3uL (1.8-7.7) Lymphocytes # (Auto) 1.2 x10^3/uL (1.0-4.8) Monocytes # (Auto) 0.3 x10^3/uL (0.0-1.1) Eosinophils # (Auto) 0.0 x10^3/uL (0.0-0.7) Basophils # (Auto) 0.0 x10^3/uL (0.0-0.2) Sodium Level 135 mmol/L (136-145) Potassium Level 4.2 mmol/L (3.5-5.1) Chloride Level 102 mmol/L (98-107) Carbon Dioxide Level 24 mmol/L (21-32) Anion Gap 9 (6-14) Blood Urea Nitrogen 4 mg/dL (7-20) Creatinine 0.5 mg/dL (0.6-1.0) Estimated GFR (Cockcroft-Gault) 145.9 Glucose Level 164 mg/dL (70-99) Calcium Level 7.9 mg/dL (8.5-10.1) Test 11/04/18 07:09 Glucose (Fingerstick) 139 mg/dL (70-99) Medications Current Medications Sodium Chloride 1,000 ml @ 1,000 mls/hr Q1H IV Last administered on 11/03/18at 00:18; Start 11/03/18 at 00:00; Stop 11/03/18 at 00:59; Status DC Insulin Human Regular (HumuLIN R VIAL) 10 unit 1X ONCE IV Last administered on 11/03/18at 00:17; Start 11/03/18 at 00:15; Stop 11/03/18 at 00:16; Status DC Ondansetron HCl (Zofran) 4 mg 1X ONCE IV Last administered on 11/03/18at 01:05; Start 11/03/18 at 01:15; Stop 11/03/18 at 01:16; Status DC Ondansetron HCl (Zofran) 4 mg STK-MED ONCE .ROUTE ; Start 11/03/18 at 01:03; Stop 11/03/18 at 01:04; Status DC Tramadol HCl (Ultram) 50 mg 1X ONCE PO Last administered on 11/03/18at 01:16; Start 11/03/18 at 01:15; Stop 11/03/18 at 01:26; Status DC Ketorolac Tromethamine (Toradol 15mg Vial) 15 mg 1X ONCE IV Last administered on 11/03/18at 02:11; Start 11/03/18 at 02:00; Stop 11/03/18 at 02:01; Status DC Morphine Sulfate (Morphine Sulfate) 2 mg 1X ONCE IV Last administered on at 02:10; Start 11/03/18 at 02:00; Stop 11/03/18 at 02:01; Status DC Ondansetron HCl (Zofran) 4 mg PRN Q8HRS PRN IV NAUSEA/VOMITING Last administered on 11/03/18 12:52; Start 11/03/18 at 02:30; Stop 11/04/18 at 02:29; Status DC Morphine Sulfate (Morphine Sulfate) 2 mg PRN Q2HR PRN IV PAIN Last administered on 11/03/18 23:21; Start 11/03/18 at 02:30; Stop 11/04/18 at 02:29; Status DC Sodium Chloride 1,000 ml @ 125 mls/hr Q8H IV Last administered on 11/03/18 22: 41; Start 11/03/18 at 02:30; Stop 11/04/18 at 02:29; Status DC Ferrous Sulfate (Feosol) 325 mg BID PO Last administered on 11/03/18 20:27; Start 11/03/18 at 09:00 Insulin Glargine (Lantus) 80 units Q12HR SQ Last administered on 11/03/18 09:09 ; Start 11/03/18 at 09:00 Promethazine HCl (Phenergan Supp) 25 mg Q8HRS RC ; Start 11/03/18 at 14:00 Insulin Human Lispro (HumaLOG) 30 units TIDWMEALS SQ Last administered on 12:32; Start 11/03/18 at 08:00 Quetiapine Fumarate (SEROquel) 100 mg QHS PO Last administered on 11/03/18 22: 41; Start 11/03/18 at 21:00 Insulin Human Lispro (HumaLOG) 0-7 UNITS TIDWMEALS SQ ; Start 11/03/18 at 08:00 Dextrose (Dextrose 50%-Water Syringe) 12.5 gm PRN Q15MIN PRN IV SEE COMMENTS; Start 11/03/18 at 08:00 Promethazine HCl (Phenergan) 12.5 mg PRN Q6HRS PRN PO NAUSEA/VOMITING Last administered on 11/03/18 20:27; Start 11/03/18 at 09:15 Bethanechol Chloride (Urecholine) 10 mg TIDAC PO Last administered on 11/03/18 17:05; Start 11/03/18 at 16:30 Morphine Sulfate (Morphine Sulfate) 2 mg PRN Q2HR PRN IV PAIN Last administered on 4/5/19at 06:21; Start 11/04/18 at 03:00 Active Scripts Active Phenergan (Promethazine HCl) 25 Mg Supp.rect 25 Mg RC Q8HRS Reported Seroquel (Quetiapine Fumarate) 100 Mg Tablet 1 Tab PO QHS Ferrous Sulfate 325 Mg Tablet 325 Mg PO BID Humalog (Insulin Lispro) 100 Unit/1 Ml Cartridge 30 Unit SQ TIDWMEALS Lantus Solostar (Insulin Glargine,Hum.rec.anlog) 100 Unit/1 Ml Insuln.pen 80 Unit SQ Q12HR Vitals/I & O Vital Sign - Last 24 Hours 11/03/18 11/03/18 11/03/18 11/03/18 11:00 12:53 15:00 15:20 Temp 97.9 97.7 97.9 97.7 Pulse 95 91 Resp 18 14 20 14 B/P (MAP) 130/78 (95) 120/81 (94) Pulse Ox 92 99 O2 Delivery Room Air Room Air Room Air Room Air 11/03/18 11/03/18 11/03/18 11/03/18 15:50 19:00 19:30 20:28 Temp 98.8 98.8 Pulse 108 Resp 14 18 B/P (MAP) 127/83 (98) Pulse Ox 95 O2 Delivery Room Air Room Air Room Air 11/03/18 11/03/18 11/03/18 11/04/18 21:00 22:48 23:21 02:54 Temp 99.3 100.8 99.3 100.8 Pulse 106 107 Resp 18 18 B/P (MAP) 119/71 (87) 112/71 (85) Pulse Ox 95 93 O2 Delivery Room Air Room Air Room Air Room Air 11/04/18 11/04/18 11/04/18 11/04/18 03:58 06:21 06:51 07:04 Temp 98.8 98.8 Pulse 113 Resp 14 18 B/P (MAP) 101/58 (72) Pulse Ox 92 O2 Delivery Room Air Room Air Room Air Room Air Intake and Output 11/03/18 11/03/18 11/04/18 15:00 23:00 07:00 Intake Total 1000 ml 360 ml Output Total 2000 ml Balance 1000 ml -2000 ml 360 ml Nutrition Consultation Dietary Evaluation: Comments: Advance diet as tolerated w/ cardiac/ADA restrictions Expected Outcomes/Goals: Diet advancement P.O. intake to meet >75% estimated needs Malnutrition Findings: Food and Nutrition Intake (Mod: <75% est energy req 7days Weight Status: Overweight JEFFERSON FAULKNER MD Nov 04, 2018 08:34
[2018-11-04] MEDS: BETHANECHOL CHLORIDE 10 MG TABLET. PO SCH ×3 (09:36→17:16)
[2018-11-04] MEDS: FERROUS SULFATE 325 MG TABLET. PO SCH ×2 (09:37→19:52)
[2018-11-04] MEDS: INSULIN GLARGINE 300 UNITS/3 ML INSULN.PEN. SQ SCH (10:08)
[2018-11-04] MEDS ORDERED: INSULIN LISPRO 300 UNITS/3 ML INSULN.PEN. SQ ONE (10:15)
[2018-11-04 11:00] VITALS: BP 78/43
[2018-11-04] MEDS: traMADol 50 MG TABLET PO PRN ×2 (13:18→19:51)
--- NOTE | 2018-11-04 14:12 | NUR ---
Pt refused promethizine supp.
--- NOTE | 2018-11-04 14:25 | NUR ---
SW following pt for anticipated dc needs. Chart reviewed. Pt lives at home and no SW needs noted at this time. Will continue to evaluate dc needs.
[2018-11-04 15:00] VITALS: BP 92/48
[2018-11-04 19:00] VITALS: BP 102/61
[2018-11-04] MEDS: QUEtiapine 100 MG TABLET. PO SCH (21:27)
[2018-11-04] MEDS ORDERED: PROMETHAZINE 25 MG SUPP.RECT. RC PRN (21:30)
[2018-11-04 23:00] VITALS: BP 102/58
[2018-11-04] MEDS: PROMETHAZINE 12.5 MG TABLET. PO PRN (23:38)
[2018-11-05] MEDS: traMADol 50 MG TABLET PO PRN ×4 (02:26→23:38)
[2018-11-05 03:00] VITALS: BP 107/49
[2018-11-05] MEDS: MORPHINE SULFATE 2 MG/ML VIAL. IV PRN ×7 (06:18→22:04)
[2018-11-05 07:00] VITALS: BP 97/60
--- NOTE | 2018-11-05 07:39 | PDOC ---
PROGRESS NOTES Chief Complaint Chief Complaint A/P: N/V/D - likely gastroenteritis worsening glycemic control, probably viral. intractable nausea/vomiting/diarrhea will need IV zofran, IVF, pain control. ADAT hyperglycemia. uncontrolled was brought down with basal bolus plus regimen. 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 History of Present Illness History of Present Illness Ms. Smith is a 27 year old female who presented with left flank pain, HHS. Has complaint of lower abdominal pain with nausea and vomiting along with liquidy stools. She states that symptoms have been present for the last few days and have progressively gotten worse. She states that she has not been able to keep any of her medications down. She states that this morning when she woke up her blood sugar was in the 40s and then she checked her blood sugar again this evening and it read high. She rates the pain in her abdomen at a 10 out of 10. She describes a sharp and stabbing in nature. She also indicates that it's very painful to urinate and she has to strain to urinate. She states that she was recently diagnosed with urinary tract infection and started on Cipro. Previously noted with an acute on chronic hemorrhagic ovarian cyst, intractable pain requiring IV medication. Seen by [employer], found on US to have a 4.2 cm complex suspected cystic lesion within the left ovary. Also, notably, Hepatosplenomegaly and hyponatremia and leukopenia were notable as well, no etiology found. 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 I have made it clear that she made the choice to return to this hospital for care despite this and she admits she likes the care here. She does live in [place] and passes multiple hospitals on the way here. 45: Had 1200cc straight cath after 800cc urine output yesterday. Nausea better Had 1400 UOP this morning, awaiting PVR currently. She has more nausea, no vomiting. Denies SOB or CP. Plan: Straight cath prn Bethanechol 25mg TID AC Possible D/C today if she tolerates lunch well. Needs f/u on the [place] side based on her insurance. I have informed her [facility] share medical records with us, she had a bad experience at [facility] and she is open to going to [facility] or [facility] as well as [facility] Vitals Vitals Vital Signs Date Time Temp Pulse Resp B/P (MAP) Pulse Ox O2 Delivery O2 Flow Rate FiO2 11/05/18 06:48 20 Room Air 11/05/18 03:00 98.3 90 107/49 (68) 93 98.3 Physical Exam General: Alert, Cooperative, mild distress Lungs: Clear Abdomen: Normal bowel sounds, Other (Hepatosplenomegaly, LLQ pain) Extremities: No clubbing, No cyanosis, No edema, Normal pulses, No tenderness/ swelling Skin: No rashes, No breakdown, No significant lesion Labs LABS Laboratory Tests Test 11/04/18 11:53 11/04/18 17:11 11/04/18 20:33 Glucose (Fingerstick) 104 mg/dL (70-99) 85 mg/dL (70-99) 146 mg/dL (70-99) Assessment and Plan Assessmemt and Plan Problems Medical Problems: (1) Hyperglycemia due to type 1 diabetes mellitus Status: Acute (2) Intractable nausea and vomiting Status: Acute Comment Review of Relevant I have reviewed the following items lizbeth (where applicable) has been applied. Labs Laboratory Tests Test 11/03/18 10:29 11/03/18 16:52 11/03/18 20:54 11/04/18 06:15 Glucose (Fingerstick) 135 mg/dL (70-99) 75 mg/dL (70-99) 76 mg/dL (70-99) White Blood Count 3.7 x10^3/uL (4.0-11.0) Red Blood Count 4.08 x10^6/uL (3.50-5.40) Hemoglobin 10.2 g/dL (12.0-15.5) Hematocrit 31.3 % (36.0-47.0) Mean Corpuscular Volume 77 fL (79-100) Mean Corpuscular Hemoglobin 25 pg (25-35) Mean Corpuscular Hemoglobin Concent 33 g/dL (31-37) Red Cell Distribution Width 17.2 % (11.5-14.5) Platelet Count 232 x10^3/uL (140-400) Neutrophils (%) (Auto) 60 % (31-73) Lymphocytes (%) (Auto) 33 % (24-48) Monocytes (%) (Auto) 7 % (0-9) Eosinophils (%) (Auto) 0 % (0-3) Basophils (%) (Auto) 0 % (0-3) Neutrophils # (Auto) 2.2 x10^3uL (1.8-7.7) Lymphocytes # (Auto) 1.2 x10^3/uL (1.0-4.8) Monocytes # (Auto) 0.3 x10^3/uL (0.0-1.1) Eosinophils # (Auto) 0.0 x10^3/uL (0.0-0.7) Basophils # (Auto) 0.0 x10^3/uL (0.0-0.2) Sodium Level 135 mmol/L (136-145) Potassium Level 4.2 mmol/L (3.5-5.1) Chloride Level 102 mmol/L (98-107) Carbon Dioxide Level 24 mmol/L (21-32) Anion Gap 9 (6-14) Blood Urea Nitrogen 4 mg/dL (7-20) Creatinine 0.5 mg/dL (0.6-1.0) Estimated GFR (Cockcroft-Gault) 145.9 Glucose Level 164 mg/dL (70-99) Calcium Level 7.9 mg/dL (8.5-10.1) Test 11/04/18 07:09 11/04/18 11:53 11/04/18 17:11 11/04/18 20:33 Glucose (Fingerstick) 139 mg/dL (70-99) 104 mg/dL (70-99) 85 mg/dL (70-99) 146 mg/dL (70-99) Laboratory Tests Test 11/04/18 11:53 11/04/18 17:11 11/04/18 20:33 Glucose (Fingerstick) 104 mg/dL (70-99) 85 mg/dL (70-99) 146 mg/dL (70-99) Medications Current Medications Sodium Chloride 1,000 ml @ 1,000 mls/hr Q1H IV Last administered on 11/03/18 00:18; Start 11/03/18 at 00:00; Stop 11/03/18 at 00:59; Status DC Insulin Human Regular (HumuLIN R VIAL) 10 unit 1X ONCE IV Last administered on 11/03/18 00:17; Start 11/03/18 at 00:15; Stop 11/03/18 at 00:16; Status DC Ondansetron HCl (Zofran) 4 mg 1X ONCE IV Last administered on 11/03/18at 01:05; Start 11/03/18 at 01:15; Stop 11/03/18 at 01:16; Status DC Ondansetron HCl (Zofran) 4 mg STK-MED ONCE .ROUTE ; Start 11/03/18 at 01:03; Stop 11/03/18 at 01:04; Status DC Tramadol HCl (Ultram) 50 mg 1X ONCE PO Last administered on 11/03/18 01:16; Start 11/03/18 at 01:15; Stop 11/03/18 at 01:26; Status DC Ketorolac Tromethamine (Toradol 15mg Vial) 15 mg 1X ONCE IV Last administered on 11/03/18 02:11; Start 11/03/18 at 02:00; Stop 11/03/18 at 02:01; Status DC Morphine Sulfate (Morphine Sulfate) 2 mg 1X ONCE IV Last administered on 02:10; Start 11/03/18 at 02:00; Stop 11/03/18 at 02:01; Status DC Ondansetron HCl (Zofran) 4 mg PRN Q8HRS PRN IV NAUSEA/VOMITING Last administered on 11/03/18 12:52; Start 11/03/18 at 02:30; Stop 11/04/18 at 02:29; Status DC Morphine Sulfate (Morphine Sulfate) 2 mg PRN Q2HR PRN IV PAIN Last administered on 11/03/18 23:21; Start 11/03/18 at 02:30; Stop 11/04/18 at 02:29; Status DC Sodium Chloride 1,000 ml @ 125 mls/hr Q8H IV Last administered on 11/03/18 22: 41; Start 11/03/18 at 02:30; Stop 11/04/18 at 02:29; Status DC Ferrous Sulfate (Feosol) 325 mg BID PO Last administered on 11/04/18 19:52; Start 11/03/18 at 09:00 Insulin Glargine (Lantus) 80 units Q12HR SQ Last administered on 11/03/18 09:09 ; Start 11/03/18 at 09:00; Stop 11/04/18 at 10:00; Status DC Promethazine HCl (Phenergan Supp) 25 mg Q8HRS RC ; Start 11/03/18 at 14:00; Stop 11/04/18 at 21:27; Status DC Insulin Human Lispro (HumaLOG) 30 units TIDWMEALS SQ Last administered on 12:32; Start 11/03/18 at 08:00; Stop 11/04/18 at 10:00; Status DC Quetiapine Fumarate (SEROquel) 100 mg QHS PO Last administered on 11/04/18 21: 27; Start 11/03/18 at 21:00 Insulin Human Lispro (HumaLOG) 0-7 UNITS TIDWMEALS SQ ; Start 11/03/18 at 08:00 Dextrose (Dextrose 50%-Water Syringe) 12.5 gm PRN Q15MIN PRN IV SEE COMMENTS; Start 11/03/18 at 08:00 Promethazine HCl (Phenergan) 12.5 mg PRN Q6HRS PRN PO NAUSEA/VOMITING Last administered on 11/04/18 23:38; Start 11/03/18 at 09:15 Bethanechol Chloride (Urecholine) 10 mg TIDAC PO Last administered on 11/04/18 17:16; Start 11/03/18 at 16:30 Morphine Sulfate (Morphine Sulfate) 2 mg PRN Q2HR PRN IV PAIN Last administered on 11/05/18 06:18; Start 11/04/18 at 03:00 Insulin Glargine (Lantus) 40 units DAILY08 SQ Last administered on 11/04/18 10: 08; Start 11/04/18 at 11:00 Insulin Human Lispro (HumaLOG) 10 units TIDWMEALS SQ Last administered on 12:24; Start 11/04/18 at 12:00 Tramadol HCl (Ultram) 50 mg PRN Q6HRS PRN PO MILD TO MODERATE PAIN Last administered on 11/05/18at 02:26; Start 11/04/18 at 10:00 Insulin Human Lispro (HumaLOG) 10 units 1X ONCE SQ Last administered on at 10:09; Start 11/04/18 at 10:15; Stop 11/04/18 at 10:19; Status DC Promethazine HCl (Phenergan Supp) 25 mg PRN Q8HRS PRN RC NAUSEA/VOMITING; Start 11/04/18 at 21:30 Active Scripts Active Phenergan (Promethazine HCl) 25 Mg Supp.rect 25 Mg RC Q8HRS Reported Seroquel (Quetiapine Fumarate) 100 Mg Tablet 1 Tab PO QHS Ferrous Sulfate 325 Mg Tablet 325 Mg PO BID Humalog (Insulin Lispro) 100 Unit/1 Ml Cartridge 30 Unit SQ TIDWMEALS Lantus Solostar (Insulin Glargine,Hum.rec.anlog) 100 Unit/1 Ml Insuln.pen 80 Unit SQ Q12HR Vitals/I & O Vital Sign - Last 24 Hours 11/04/18 11/04/18 11/04/18 11/04/18 08:00 09:38 11:00 12:17 Temp 98.3 98.3 Pulse 102 Resp 14 16 14 B/P (MAP) 78/43 (55) Pulse Ox 93 O2 Delivery Room Air Room Air Room Air Room Air 11/04/18 11/04/18 11/04/18 11/04/18 13:18 14:18 15:00 17:16 Temp 98.3 98.3 Pulse 98 Resp 14 18 14 B/P (MAP) 92/48 (63) Pulse Ox 94 94 94 O2 Delivery Room Air Room Air Room Air 11/04/18 11/04/18 11/04/18 11/04/18 17:56 19:00 19:50 19:51 Temp 98.7 98.7 Pulse 94 Resp 18 18 B/P (MAP) 102/61 (75) Pulse Ox 94 92 O2 Delivery Room Air Room Air Room Air 11/04/18 11/04/18 11/04/18 11/05/18 21:27 23:00 23:39 02:26 Temp 98.7 98.7 Pulse 80 Resp 20 18 20 20 B/P (MAP) 102/58 (73) Pulse Ox 92 O2 Delivery Room Air Room Air Room Air Room Air 11/05/18 11/05/18 11/05/18 11/05/18 03:00 03:26 06:18 06:48 Temp 98.3 98.3 Pulse 90 Resp 18 18 20 20 B/P (MAP) 107/49 (68) Pulse Ox 93 O2 Delivery Room Air Room Air Room Air Room Air Intake and Output 11/04/18 11/04/18 11/05/18 15:00 23:00 07:00 Intake Total 250 ml Output Total 1200 ml Balance -950 ml Nutrition Consultation Dietary Evaluation: Comments: Advance diet as tolerated w/ cardiac/ADA restrictions Expected Outcomes/Goals: Diet advancement P.O. intake to meet >75% estimated needs Malnutrition Findings: Food and Nutrition Intake (Mod: <75% est energy req 7days Weight Status: Overweight JEFFERSON FAULKNER MD Nov 05, 2018 07:39
[2018-11-05] MEDS: BETHANECHOL CHLORIDE 25 MG TABLET PO SCH ×3 (08:19→17:32)
[2018-11-05] MEDS: FERROUS SULFATE 325 MG TABLET. PO SCH ×2 (08:20→20:36)
[2018-11-05] MEDS: INSULIN LISPRO 300 UNITS/3 ML INSULN.PEN. SQ SCH ×6 (08:39→17:37)
[2018-11-05] MEDS: INSULIN GLARGINE 300 UNITS/3 ML INSULN.PEN. SQ SCH (08:42)
[2018-11-05] MEDS ORDERED: BETH25TA16 PO (10:33)
[2018-11-05] MEDS ORDERED: INSU100I11 SQ (10:33)
[2018-11-05] MEDS ORDERED: [UNRECOGNIZED DRUG - CODE] MC (10:33)
[2018-11-05] MEDS ORDERED: INSU100I13 SQ (10:33)
[2018-11-05] MEDS ORDERED: TRAM50TA PO (10:33)
[2018-11-05] MEDS: PROMETHAZINE 12.5 MG TABLET. PO PRN ×3 (10:36→23:36)
[2018-11-05 11:00] VITALS: BP 132/67
--- NOTE | 2018-11-05 11:33 | NUR ---
pt PVR was [phone]. straight cath pt and got 800 out. pt encouraged to attempt self cath on next post void.
[2018-11-05 15:00] VITALS: BP 122/68
[2018-11-05 19:00] VITALS: BP 138/61
--- NOTE | 2018-11-05 19:51 | NUR ---
Administered morphine and 0.5ml wasted because syringe was not secured to IV cath.
[2018-11-05 23:00] VITALS: BP 97/62
[2018-11-05] MEDS: QUEtiapine 100 MG TABLET. PO SCH (23:36)
[2018-11-06] VITALS (7 sets, daily range): BP systolic 87–126; BP diastolic 52–95
[2018-11-06] MEDS: MORPHINE SULFATE 2 MG/ML VIAL. IV PRN ×10 (00:32→22:39)
[2018-11-06] MEDS: traMADol 50 MG TABLET PO PRN ×3 (06:30→23:13)
--- NOTE | 2018-11-06 07:10 | NUR ---
The patient had a void of 900ml, nursing staff bladder scanned the patient with a residual of 273. The patient was straight cathed with an output of 200ml
[2018-11-06] MEDS: BETHANECHOL CHLORIDE 25 MG TABLET PO SCH ×3 (07:30→17:04)
--- NOTE | 2018-11-06 07:36 | PDOC ---
PROGRESS NOTES Chief Complaint Chief Complaint A/P: N/V/D - likely gastroenteritis worsening glycemic control, probably viral. intractable nausea/vomiting/diarrhea will need IV zofran, IVF, pain control. ADAT hyperglycemia. uncontrolled was brought down with basal bolus plus regimen. 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 History of Present Illness History of Present Illness Ms. Smith is a 27 year old female who presented with left flank pain, HHS. Has complaint of lower abdominal pain with nausea and vomiting along with liquidy stools. She states that symptoms have been present for the last few days and have progressively gotten worse. She states that she has not been able to keep any of her medications down. She states that this morning when she woke up her blood sugar was in the 40s and then she checked her blood sugar again this evening and it read high. She rates the pain in her abdomen at a 10 out of 10. She describes a sharp and stabbing in nature. She also indicates that it's very painful to urinate and she has to strain to urinate. She states that she was recently diagnosed with urinary tract infection and started on Cipro. Previously noted with an acute on chronic hemorrhagic ovarian cyst, intractable pain requiring IV medication. Seen by [facility], found on US to have a 4.2 cm complex suspected cystic lesion within the left ovary. Also, notably, Hepatosplenomegaly and hyponatremia and leukopenia were notable as well, no etiology found. 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 I have made it clear that she made the choice to return to this hospital for care despite this and she admits she likes the care here. She does live in [place] and passes multiple hospitals on the way here. 45: Had 1200cc straight cath after 800cc urine output yesterday. Nausea better 6: Had 1400 UOP this morning, PVR 400, was unable to straight cath herself, still trying to learn. Overnight with vomiting. States her urine is becoming darker. She has more nausea. Denies SOB or CP. Plan: Straight cath prn Bethanechol 25mg TID AC She needs urodynamics for definitive diagnosis of diabetic neurogenic bladder, though all signs and symptoms point to this. I have advised against phenergan as she has been taking it more recently Possible D/C today if she tolerates lunch well. Needs f/u on the [place] side based on her insurance. I have informed her [facility] [place] share medical records with us, she had a bad experience at [facility] and she is open to going to [facility] or [facility] as well as [facility] Vitals Vitals Vital Signs Date Time Temp Pulse Resp B/P (MAP) Pulse Ox O2 Delivery O2 Flow Rate FiO2 11/06/18 07:25 Room Air 11/06/18 06:30 16 94 11/06/18 03:00 97.9 85 103/63 (76) 97.9 Physical Exam General: Alert, Cooperative, mild distress Lungs: Clear Abdomen: Normal bowel sounds, Other (Hepatosplenomegaly, LLQ pain) Extremities: No clubbing, No cyanosis, No edema, Normal pulses, No tenderness/ swelling Skin: No rashes, No breakdown, No significant lesion Labs LABS Laboratory Tests Test 11/05/18 07:44 11/05/18 11:12 11/05/18 16:51 11/05/18 21:06 Glucose (Fingerstick) 335 mg/dL (70-99) 194 mg/dL (70-99) 132 mg/dL (70-99) 135 mg/dL (70-99) Assessment and Plan Assessmemt and Plan Problems Medical Problems: (1) Hyperglycemia due to type 1 diabetes mellitus Status: Acute (2) Intractable nausea and vomiting Status: Acute Comment Review of Relevant I have reviewed the following items lizbeth (where applicable) has been applied. Labs Laboratory Tests Test 11/04/18 11:53 11/04/18 17:11 11/04/18 20:33 11/05/18 07:44 Glucose (Fingerstick) 104 mg/dL (70-99) 85 mg/dL (70-99) 146 mg/dL (70-99) 335 mg/dL (70-99) Test 11/05/18 11:12 11/05/18 16:51 11/05/18 21:06 Glucose (Fingerstick) 194 mg/dL (70-99) 132 mg/dL (70-99) 135 mg/dL (70-99) Laboratory Tests Test 11/05/18 07:44 11/05/18 11:12 11/05/18 16:51 11/05/18 21:06 Glucose (Fingerstick) 335 mg/dL (70-99) 194 mg/dL (70-99) 132 mg/dL (70-99) 135 mg/dL (70-99) Medications Current Medications Sodium Chloride 1,000 ml @ 1,000 mls/hr Q1H IV Last administered on 11/03/18at 00:18; Start 11/03/18 at 00:00; Stop 11/03/18 at 00:59; Status DC Insulin Human Regular (HumuLIN R VIAL) 10 unit 1X ONCE IV Last administered on 11/03/18at 00:17; Start 11/03/18 at 00:15; Stop 11/03/18 at 00:16; Status DC Ondansetron HCl (Zofran) 4 mg 1X ONCE IV Last administered on 11/03/18at 01:05; Start 11/03/18 at 01:15; Stop 11/03/18 at 01:16; Status DC Ondansetron HCl (Zofran) 4 mg STK-MED ONCE .ROUTE ; Start 11/03/18 at 01:03; Stop 11/03/18 at 01:04; Status DC Tramadol HCl (Ultram) 50 mg 1X ONCE PO Last administered on 11/03/18at 01:16; Start 11/03/18 at 01:15; Stop 11/03/18 at 01:26; Status DC Ketorolac Tromethamine (Toradol 15mg Vial) 15 mg 1X ONCE IV Last administered on 11/03/18at 02:11; Start 11/03/18 at 02:00; Stop 11/03/18 at 02:01; Status DC Morphine Sulfate (Morphine Sulfate) 2 mg 1X ONCE IV Last administered on at 02:10; Start 11/03/18 at 02:00; Stop 11/03/18 at 02:01; Status DC Ondansetron HCl (Zofran) 4 mg PRN Q8HRS PRN IV NAUSEA/VOMITING Last administered on 11/03/18 12:52; Start 11/03/18 at 02:30; Stop 11/04/18 at 02:29; Status DC Morphine Sulfate (Morphine Sulfate) 2 mg PRN Q2HR PRN IV PAIN Last administered on 11/03/18 23:21; Start 11/03/18 at 02:30; Stop 11/04/18 at 02:29; Status DC Sodium Chloride 1,000 ml @ 125 mls/hr Q8H IV Last administered on 11/03/18 22: 41; Start 11/03/18 at 02:30; Stop 11/04/18 at 02:29; Status DC Ferrous Sulfate (Feosol) 325 mg BID PO Last administered on 11/05/18 20:36; Start 11/03/18 at 09:00 Insulin Glargine (Lantus) 80 units Q12HR SQ Last administered on 11/03/18 09:09 ; Start 11/03/18 at 09:00; Stop 11/04/18 at 10:00; Status DC Promethazine HCl (Phenergan Supp) 25 mg Q8HRS RC ; Start 11/03/18 at 14:00; Stop 11/04/18 at 21:27; Status DC Insulin Human Lispro (HumaLOG) 30 units TIDWMEALS SQ Last administered on 12:32; Start 11/03/18 at 08:00; Stop 11/04/18 at 10:00; Status DC Quetiapine Fumarate (SEROquel) 100 mg QHS PO Last administered on 11/05/18 23: 36; Start 11/03/18 at 21:00 Insulin Human Lispro (HumaLOG) 0-7 UNITS TIDWMEALS SQ Last administered on 12:14; Start 11/03/18 at 08:00 Dextrose (Dextrose 50%-Water Syringe) 12.5 gm PRN Q15MIN PRN IV SEE COMMENTS; Start 11/03/18 at 08:00 Promethazine HCl (Phenergan) 12.5 mg PRN Q6HRS PRN PO NAUSEA/VOMITING Last administered on 11/05/18 23:36; Start 11/03/18 at 09:15 Bethanechol Chloride (Urecholine) 10 mg TIDAC PO Last administered on 11/04/18 17:16; Start 11/03/18 at 16:30; Stop 11/05/18 at 07:39; Status DC Morphine Sulfate (Morphine Sulfate) 2 mg PRN Q2HR PRN IV PAIN Last administered on 11/06/18 06:29; Start 11/04/18 at 03:00 Insulin Glargine (Lantus) 40 units DAILY08 SQ Last administered on 11/05/18 08: 42; Start 11/04/18 at 11:00 Insulin Human Lispro (HumaLOG) 10 units TIDWMEALS SQ Last administered on 17:37; Start 11/04/18 at 12:00 Tramadol HCl (Ultram) 50 mg PRN Q6HRS PRN PO MILD TO MODERATE PAIN Last administered on 11/06/18 06:30; Start 11/04/18 at 10:00 Insulin Human Lispro (HumaLOG) 10 units 1X ONCE SQ Last administered on at 10:09; Start 11/04/18 at 10:15; Stop 11/04/18 at 10:19; Status DC Promethazine HCl (Phenergan Supp) 25 mg PRN Q8HRS PRN RC NAUSEA/VOMITING; Start 11/04/18 at 21:30 Bethanechol Chloride (Urecholine) 25 mg TIDAC PO Last administered on 11/05/18 17:32; Start 11/05/18 at 08:00 Active Scripts Active Personal Catheter Intermittent (Catheter) 1 Each Each Each QID 4-5 times daily for neurogenic bladder Humalog (Insulin Lispro) 100 Unit/1 Ml Insuln.pen 10 Units SQ TIDWMEALS 30 Days Dispense BD fine pen needles 4mm 31g #100 for QID dosing Tramadol Hcl 50 Mg Tablet 50 Mg PO PRN Q6HRS PRN 6 Days Urecholine (Bethanechol Chloride) 25 Mg Tablet 25 Mg PO TIDAC 30 Days Lantus Solostar (Insulin Glargine,Hum.rec.anlog) 100 Unit/1 Ml Insuln.pen 40 Unit SQ DAILYAC 30 Days Dispense pen needles BD FINE 4mm 31g #100 per month or nearest affordable length/diameter Phenergan (Promethazine HCl) 25 Mg Supp.rect 25 Mg RC Q8HRS Reported Seroquel (Quetiapine Fumarate) 100 Mg Tablet 1 Tab PO QHS Ferrous Sulfate 325 Mg Tablet 325 Mg PO BID Vitals/I & O Vital Sign - Last 24 Hours 11/05/18 11/05/18 11/05/18 11/05/18 08:15 08:27 10:36 11:00 Temp 98.2 98.2 Pulse 86 Resp 17 B/P (MAP) 132/67 (88) Pulse Ox 98 O2 Delivery Room Air Room Air Room Air Room Air 11/05/18 11/05/18 11/05/18 11/05/18 12:03 15:00 15:05 17:32 Temp 98.0 98.0 Pulse 95 Resp 17 B/P (MAP) 122/68 (86) Pulse Ox 94 O2 Delivery Room Air Room Air Room Air Room Air 11/05/18 11/05/18 11/05/18 11/05/18 17:34 19:00 19:45 20:00 Temp 98.3 98.3 Pulse 99 Resp 20 16 B/P (MAP) 138/61 (86) Pulse Ox 97 94 O2 Delivery Room Air Room Air Room Air Room Air 11/05/18 11/05/18 11/05/18 11/06/18 22:04 23:00 23:38 00:32 Temp 98.0 98.0 Pulse 91 Resp 16 20 16 16 B/P (MAP) 97/62 (74) Pulse Ox 94 94 94 94 O2 Delivery Room Air Room Air Room Air Room Air 11/06/18 11/06/18 11/06/18 11/06/18 00:45 01:20 03:00 03:22 Temp 97.9 97.9 Pulse 85 Resp 16 16 20 16 B/P (MAP) 103/63 (76) Pulse Ox 94 94 90 94 O2 Delivery Room Air Room Air 11/06/18 11/06/18 11/06/18 11/06/18 06:29 06:30 07:25 07:25 Resp 1 16 Pulse Ox 94 94 O2 Delivery Room Air Room Air Room Air Room Air Intake and Output 11/05/18 11/05/18 11/06/18 15:00 23:00 07:00 Intake Total 820 ml Output Total 2200 ml 1200 ml Balance -2200 ml -1200 ml 820 ml Nutrition Consultation Dietary Evaluation: Comments: Advance diet as tolerated w/ cardiac/ADA restrictions Expected Outcomes/Goals: Diet advancement P.O. intake to meet >75% estimated needs Malnutrition Findings: Food and Nutrition Intake (Mod: <75% est energy req 7days Weight Status: Overweight JEFFERSON FAULKNER MD Nov 06, 2018 07:36
[2018-11-06] MEDS: PROMETHAZINE 12.5 MG TABLET. PO PRN (08:25)
[2018-11-06] MEDS: INSULIN LISPRO 300 UNITS/3 ML INSULN.PEN. SQ SCH ×6 (08:36→17:12)
[2018-11-06] MEDS: INSULIN GLARGINE 300 UNITS/3 ML INSULN.PEN. SQ SCH (08:38)
[2018-11-06] MEDS: FERROUS SULFATE 325 MG TABLET. PO SCH ×2 (09:00→21:16)
[2018-11-06] MEDS ORDERED: IV NORMAL SALINE 1000ML BAG 1,000 ML IV ONE (10:00)
--- NOTE | 2018-11-06 15:10 | NUR ---
pt had not voided since this a.m. bladder scan revealed 674. encouraged pt to void. she was able to void 430. PVR of 133. urine sample sent to lab. urine very concentrated and cloudy.
[2018-11-06 15:33] LABS: BILIRUBIN,URINE NEGATIVE (NEG); CLARITY,URINE TURBID; COLOR,URINE YELLOW; NITRITE,URINE POSITIVE (NEG); PROTEIN,URINE 30 mg/dL (NEG-TRACE); UROBILINOGEN,URINE 0.2 mg/dL (0.2 mg/dL)
[2018-11-06 15:45] LABS: BACTERIA,URINE MODERATE /HPF (0-FEW); SQUAMOUS EPITHELIAL CELL,UR OCC /LPF; WBC,URINE TNTC /HPF (0-4)
[2018-11-06] MEDS: ONDANSETRON PF 4 MG/2 ML VIAL. IV PRN (17:04)
--- NOTE | 2018-11-06 17:45 | NUR ---
UA results reported to Dr. Gallagher. antibiotics ordered.
[2018-11-06] MEDS ORDERED: cefTRIAXone IV Push 1 GM VIAL. IVP SCH (18:00)
[2018-11-06] MEDS ORDERED: IV RINGERS,LACTATED 1000ML 1,000 ML IV ONE (21:00)
[2018-11-06] MEDS: LACTOBACILLUS RHAMNOSUS GG 1 CAPSULE. PO SCH (21:16)
[2018-11-06] MEDS: QUEtiapine 100 MG TABLET. PO SCH (23:13)
--- NOTE | 2018-11-06 23:28 | NUR ---
Urine output of 550ml. Nursing staff bladder scanned pt resulting in the retention of 640ml. Patient was straight cathed, with a urine output of 450ml.
[2018-11-07] MEDS: ONDANSETRON PF 4 MG/2 ML VIAL. IV PRN (01:11)
[2018-11-07] MEDS: MORPHINE SULFATE 2 MG/ML VIAL. IV PRN ×4 (01:11→11:32)
[2018-11-07 03:00] VITALS: BP 94/55
[2018-11-07] MEDS: traMADol 50 MG TABLET PO PRN ×2 (05:22→11:40)
[2018-11-07 07:00] VITALS: BP 107/65
[2018-11-07] MEDS: BETHANECHOL CHLORIDE 25 MG TABLET PO SCH ×2 (07:43→11:45)
[2018-11-07] MEDS: FERROUS SULFATE 325 MG TABLET. PO SCH (08:04)
[2018-11-07] MEDS: INSULIN GLARGINE 300 UNITS/3 ML INSULN.PEN. SQ SCH (08:09)
[2018-11-07] MEDS: INSULIN LISPRO 300 UNITS/3 ML INSULN.PEN. SQ SCH ×4 (08:10→11:38)
[2018-11-07] MEDS: LACTOBACILLUS RHAMNOSUS GG 1 CAPSULE. PO SCH (09:02)
--- NOTE | 2018-11-07 09:48 | NUR ---
Patient sleeping this morning, instructed patient to call RN to bladder scan when voids for PVR and catheterization if needed. She verb. understanding. Patient refused humalog insulin this morning, blood sugar 219, she is not eating breakfast and requested her long acting insulin for now, and to call RN for humalog dose. Continue cares and monitor, patient verb. understanding discharge planned for today.
--- NOTE | 2018-11-07 10:22 | PDOC3 ---
Discharge Summary Visit Information Date of Admission: Nov 03, 2018 Date of Discharge: Nov 07, 2018 Admitting Diagnosis Comment: DM gastroparesis Depression NOS Narcotic dependence History of VRE UTI Escherichia coli UTI recently 1 month ago Obesity HONK Urinary retention Final Diagnosis Problems Medical Problems: (1) Hyperglycemia due to type 1 diabetes mellitus Status: Acute (2) Intractable nausea and vomiting Status: Acute Brief Hospital Course Allergies Allergies Coded Allergies Type Severity Reaction Last Updated Verified Penicillins Allergy Severe ANAPHYLAXIS, cefepime ok 11/12/16 Yes doxycycline Allergy Intermediate 11/12/16 Yes fentanyl Allergy Intermediate 11/12/16 Yes I S O L A T I O N *CONTACT* Allergy Unknown 11/03/18 Yes cefepime Adverse Reaction Intermediate "makes her feel sick" 11/03/18 Yes hydrocodone Adverse Reaction Intermediate itching 11/12/16 Yes Vital Signs Vital Signs Date Time Temp Pulse Resp B/P (MAP) Pulse Ox O2 Delivery O2 Flow Rate FiO2 11/07/18 08:35 18 Room Air 11/07/18 07:00 97.7 93 107/65 (79) 97 97.7 11/07/18 06:32 96.0 Lab Results Laboratory Tests Test 11/05/18 11:12 11/05/18 16:51 11/05/18 21:06 11/06/18 07:23 Glucose (Fingerstick) 194 mg/dL (70-99) 132 mg/dL (70-99) 135 mg/dL (70-99) 251 mg/dL (70-99) Test 11/06/18 11:33 11/06/18 14:50 11/06/18 16:25 11/06/18 21:06 Glucose (Fingerstick) 303 mg/dL (70-99) 131 mg/dL (70-99) 112 mg/dL (70-99) Urine Collection Type Unknown Urine Color Yellow Urine Clarity Turbid Urine pH 6.0 Urine Specific [place] 1.015 Urine Protein 30 mg/dL (NEG-TRACE) Urine Glucose (UA) 250 mg/dL (NEG) Urine Ketones (Stick) Negative mg/dL (NEG) Urine Blood Moderate (NEG) Urine Nitrite Positive (NEG) Urine Bilirubin Negative (NEG) Urine Urobilinogen Dipstick 0.2 mg/dL (0.2 mg/dL) Urine Leukocyte Esterase Large (NEG) Urine RBC 3-5 /HPF (0-2) Urine WBC Tntc /HPF (0-4) Urine Squamous Epithelial Cells Occ /LPF Urine Bacteria Moderate /HPF (0-FEW) Test 11/07/18 07:54 Glucose (Fingerstick) 219 mg/dL (70-99) Laboratory Tests Test 11/06/18 11:33 11/06/18 14:50 11/06/18 16:25 11/06/18 21:06 Glucose (Fingerstick) 303 mg/dL (70-99) 131 mg/dL (70-99) 112 mg/dL (70-99) Urine Collection Type Unknown Urine Color Yellow Urine Clarity Turbid Urine pH 6.0 Urine Specific [place] 1.015 Urine Protein 30 mg/dL (NEG-TRACE) Urine Glucose (UA) 250 mg/dL (NEG) Urine Ketones (Stick) Negative mg/dL (NEG) Urine Blood Moderate (NEG) Urine Nitrite Positive (NEG) Urine Bilirubin Negative (NEG) Urine Urobilinogen Dipstick 0.2 mg/dL (0.2 mg/dL) Urine Leukocyte Esterase Large (NEG) Urine RBC 3-5 /HPF (0-2) Urine WBC Tntc /HPF (0-4) Urine Squamous Epithelial Cells Occ /LPF Urine Bacteria Moderate /HPF (0-FEW) Test 11/07/18 07:54 Glucose (Fingerstick) 219 mg/dL (70-99) Brief Hospital Course Ms. Smith is a 27 old white F, readmitted because of either nausea vomiting with mild electronic abnormalities and always history of UTI complicated in a poorly controlled diabetic. Last time I saw her was exactly one month ago when I prescribe her pain medicines and had Escherichia coli UTI sensitive to macrobid and Bactrim. I discharged her on Bactrim and she claims she did fill it. Colleague started some self catheter instructions because of acute urinary retention and is still going about 4 50 mL. Patient is not too happy about self cathetering. She was agreeable to discharge I will call her if I have urine cultures that is quite remarkable. I did discharge this time on Macrobid. The last time she was here it was Escherichia coli UTI sensitive to Macrobid and Bactrim Consults performed none Tramadol on chart, written by Dr. Murillo only a few pills Discharge Information Condition at Discharge: Improved, Stable Disposition/Orders: D/C to Home Scheduled Bethanechol Chloride (Urecholine) 25 Mg Tablet, 25 MG PO TIDAC for Neurogenic bladder/Diabetic for 30 Days, #90 Ref 2 Prescribed by: JEFFERSON FAULKNER MD on 11/05/18 1033 Ferrous Sulfate (Ferrous Sulfate) 325 Mg Tablet, 325 MG PO BID for iron supplement, (Reported) Entered as Reported by: ZACH RANDALL on 10/26/17 192 Last Action: Continued on 11/03/18750 by JEFFERSON FAULKNER MD Insulin Glargine,Hum.rec.anlog (Lantus Solostar) 100 Unit/1 Ml Insuln.pen, 40 UNIT SQ DAILYAC for antidiabetic for 30 Days, #1 Ref 2 Dispense pen needles BD FINE 4mm 31g #100 per month or nearest affordable length/diameter Prescribed by: JEFFERSON FAULKNER MD on 11/05/18 1033 Insulin Lispro (Humalog) 100 Unit/1 Ml Insuln.pen, 10 UNITS SQ TIDWMEALS for DM1 for 30 Days, #1 Ref 2 Dispense BD fine pen needles 4mm 31g #100 for QID dosing Prescribed by: JEFFERSON FAULKNER MD on 11/05/18 1033 Promethazine HCl (Phenergan) 25 Mg Supp.rect, 25 MG RC Q8HRS, #10 Prescribed by: DOMINIC MANCINI D.O. on 10/28/18 011 Last Action: Continued on 11/03/18750 by JEFFERSON FAULKNER MD Quetiapine Fumarate (Seroquel) 100 Mg Tablet, 1 TAB PO QHS for mental health, # 30 Ref 1 (Reported) Entered as Reported by: Brigitte Stanley on 12/21/17 0515 Last Action: Converted on 11/03/18750 by JEFFERSON FAULKNER MD Scheduled PRN Tramadol Hcl (Tramadol Hcl) 50 Mg Tablet, 50 MG PO PRN Q6HRS PRN for MILD TO MODERATE PAIN for 6 Days, #18 Prescribed by: JEFFERSON FAULKNER MD on 11/05/18 1033 Discontinued Medications Insulin Lispro (Humalog) 100 Unit/1 Ml Cartridge, 30 UNIT SQ TIDWMEALS for antidiabetic, (Reported) Entered as Reported by: ISIDRO GIPSON on 02/24/17 0926 Last Action: Converted on 11/03/18 0751 by JEFFERSON FAULKNER MD Durable Medical Equipment Catheter (Personal Catheter Intermittent) 1 Each Each, EACH QID for Neurogenic bladder, diabetic, #120 Ref 11, (DME) 4-5 times daily for neurogenic bladder Prescribed by: JEFFERSON FAULKNER MD on 11/05/18 1033 HIRAL EATON MD Nov 07, 2018 10:21
[2018-11-07 10:41] VITALS: BP 104/59
[2018-11-07] MEDS ORDERED: HEPARIN PF 500 UNIT/5 ML DISP.SYRIN. IV ONE (11:30)
--- NOTE | 2018-11-07 11:54 | NUR ---
Right chest portacath gallardo needle removed per protocol. No bleeding or swelling at site. See emar and IV interventtions.
--- NOTE | 2018-11-07 13:20 | NUR ---
Patient refused catheterization, states she is just swollen at urethra and it takes her a while to empty bladder. She did not call RN for PVR. Discharge instructions, medications and prescriptions reviewed with patient, she verb. understanding all instructions. Patient verb. she has all belongings. Ely ZIEGLER states she has given patient lists of resources before to follow up on and patient does not need anymore information. Patient ready for discharge when ride arrives.
--- NOTE | 2018-11-07 14:54 | NUR ---
Patient discharge to home in her wheelchair with boyfriend with all belongings, instructions and prescriptions to go home per bus.
== END 2018-11-07 14:55 | disposition home or self-care (01) | DRG 638 ==
LOC: ER 23:34 → 5 NORTH 11-03 02:24
PROVIDERS: ADMIT Internal Medicine; ATTEND Internal Medicine
DX: E10.65 Type 1 diabetes mellitus with hyperglycemia (principal); E87.1 Hypo-osmolality and hyponatremia; E10.43 Type 1 diabetes mellitus with diabetic autonomic (poly)neuropathy; K52.9 Noninfective gastroenteritis and colitis, unspecified; E10.40 Type 1 diabetes mellitus with diabetic neuropathy, unspecified; E10.69 Type 1 diabetes mellitus with other specified complication; D72.819 Decreased white blood cell count, unspecified; I10 Essential (primary) hypertension; K31.84 Gastroparesis; F17.210 Nicotine dependence, cigarettes, uncomplicated; N31.9 Neuromuscular dysfunction of bladder, unspecified; F41.9 Anxiety disorder, unspecified; F32.9 Major depressive disorder, single episode, unspecified; R33.9 Retention of urine, unspecified; R16.2 Hepatomegaly with splenomegaly, not elsewhere classified; Z79.4 Long term (current) use of insulin; Z82.49 Family history of ischemic heart disease and other diseases of the circulatory system; Z86.14 Personal history of Methicillin resistant Staphylococcus aureus infection; Z86.718 Personal history of other venous thrombosis and embolism; Z87.440 Personal history of urinary (tract) infections; Z88.0 Allergy status to penicillin; Z88.8 Allergy status to other drugs, medicaments and biological substances; Z90.49 Acquired absence of other specified parts of digestive tract
CPT/HCPCS: 36415; 76856; 80048; 80053; 81001; 81025; 82010; 82962; 85025; 87086; 87186; 96361; 96374; 96375; J0696; J1815; J1885; J2270; J2405; J7030; J7120; Q0169; 99285-25

== ENCOUNTER 2018-12-01 20:19 | Emergency (ER) | payer SELFPAY ==
[~2018-12-01] VITALS: Ht 170.2 cm; Wt 86.2 kg
[~2018-12-01 20:19] MED LIST changes: +BETH25TA16 PO; +INSU100I11 SQ; +[UNRECOGNIZED DRUG - CODE] MC
[2018-12-01] MEDS ORDERED: IV NORMAL SALINE 1000ML BAG 1,000 ML IV ONE (20:45)
[2018-12-01 21:00] LABS: BILIRUBIN,URINE NEGATIVE (NEG); CLARITY,URINE CLEAR; COLOR,URINE YELLOW; NITRITE,URINE NEGATIVE (NEG); PH,URINE 6.5; PROTEIN,URINE NEGATIVE (NEG-TRACE); UROBILINOGEN,URINE 0.2 mg/dL (0.2 mg/dL)
[2018-12-01 21:04] LABS: SQUAMOUS EPITHELIAL CELL,UR MANY /LPF
[2018-12-01 21:05] LABS: YEAST,URINE PRESENT /HPF
[2018-12-01 21:06] LABS: BACTERIA,URINE MODERATE /HPF (0-FEW)
[2018-12-01 21:56] LABS: BASO % 0 % (0-3); EOS % 0 % (0-3); HEMATOCRIT 30.1 % (36.0-47.0); HEMOGLOBIN 9.5 g/dL (12.0-15.5); LYMPH # 1.3 x10^3/uL (1.0-4.8); LYMPH % 30 % (24-48); MEAN CORPUSCULAR HEMOGLOBIN 23 pg (25-35); MEAN CORPUSCULAR HGB CONC 32 g/dL (31-37); MEAN CORPUSCULAR VOLUME 73 fL (79-100); MONO # 0.3 x10^3/uL (0.0-1.1); MONO % 7 % (0-9); NEUT # 2.7 x10^3uL (1.8-7.7); NEUT % 63 % (31-73); PLATELET COUNT 184 x10^3/uL (140-400); RED BLOOD COUNT 4.13 x10^6/uL (3.50-5.40); RED CELL DISTRIBUTION WIDTH 16.1 % (11.5-14.5); WHITE BLOOD COUNT 4.3 x10^3/uL (4.0-11.0)
[2018-12-01 22:05] LABS: CALCIUM 8.5 mg/dL (8.5-10.1); CREATININE 0.6 mg/dL (0.6-1.0); GFR 118.2; POTASSIUM 3.7 mmol/L (3.5-5.1)
[2018-12-01 22:10] LABS: ALBUMIN 2.8 g/dL (3.4-5.0); ALBUMIN/GLOBULIN RATIO 0.7 (1.0-1.7); TOTAL BILIRUBIN 0.2 mg/dL (0.2-1.0)
[2018-12-01] MEDS ORDERED: ONDANSETRON PF 4 MG/2 ML VIAL. IV ONE (22:15)
[2018-12-01] MEDS ORDERED: MORPHINE SULFATE 4 MG/ML VIAL. IV ONE (22:15)
[2018-12-01 23:18] LABS: U PREG PATIENT NEGATIVE (NEG)
[2018-12-01] MEDS ORDERED: METOCLOPRAMIDE HCL 10 MG/2 ML VIAL. ONE (23:39)
[2018-12-01] MEDS ORDERED: METOCLOPRAMIDE HCL 10 MG/2 ML VIAL. IV ONE (23:45)
[2018-12-02] MEDS ORDERED: MORPHINE SULFATE 4 MG/ML VIAL. IV ONE
[2018-12-02] MEDS ORDERED: IOHEXOL 300 MG/ML 100ML VIAL. IV ONE (01:00)
[2018-12-02] MEDS ORDERED: CONTRAST GIVEN. MC PRN (01:00)
--- NOTE | 2018-12-02 01:23 | RAD ---
PQRS Compliance statement: One or more of the following individualized dose reduction techniques were utilized for this examination: 1. Automated exposure control. 2. Adjustment of the mA and/or kV according to patient size. 3. Use of iterative reconstruction technique. Indication:ABD PAIN; OMNI 300, 75ML TECHNIQUE: CT abdomen and pelvis with IV contrast with multiplanar reformats. COMPARISON: 10/08/2018 FINDINGS: Heart is normal in size. No pericardial or pleural effusion. Stable cardiophrenic recess lymph node measuring 1.7 x 1.0 cm. Interstitial opacities in the visualized lung bases. Motion artifact is seen in the abdomen limiting optimal evaluation. Liver is moderately enlarged measuring 26 cm in craniocaudal dimension. Spleen is moderately enlarged measuring 19 cm without focal lesion. Status post cholecystectomy. Pancreas within normal limits. No adrenal gland mass or nodules. No nephrolithiasis or hydronephrosis. No enlarged retroperitoneal or pelvic adenopathy. No free pelvic fluid or ascites. No bowel obstruction. Anteverted uterus. Urinary bladder is distended without radiopaque stone or focal lesion. No pneumoperitoneum. No suspicious bony lesion. IMPRESSION: 1. Moderate hepatomegaly, nonspecific. 2. Interstitial opacities in the visualized lung bases may be secondary to interstitial pulmonary edema or atypical/viral infection. Electronically signed by: Edide Reid DO (12/02/2018 1:20 AM) [id number]
--- NOTE | 2018-12-02 01:38 | PHYS DOC ---
Past Medical History Past Medical History: Anemia, Anxiety, Diabetes-Type I, DVT, Ovarian Cyst Additional Past Medical Histor: VENTRAL HERNIA, L leg clot Past Surgical History: Other Additional Past Surgical Histo: R fallopian, L ovary cyst removed,HERNIA REPAIR, I&D L ARM, left thumb amp Alcohol Use: None Drug Use: None Adult General Chief Complaint Chief Complaint: HYPERGLYCEMIA HPI HPI Patient is a 27 year old female who presents to the due to chief complaint of left upper quadrant tenderness and hyperglycemia. Patient states that her sugars have been fluctuating between high and low. Patient states that she has increased pain in her left upper quadrant. She states she has multiple episodes of pain in the lower abdomen past but nothing in the left upper quadrant. Review of Systems Review of Systems Constitutional: Denies fever or chills [] Eyes: Denies change in visual acuity, redness, or eye pain [] HENT: Denies nasal congestion or sore throat [] Respiratory: Denies cough or shortness of breath [] Cardiovascular: No additional information not addressed in HPI [] GI: Complains of left upper quadrant tenderness : Denies dysuria or hematuria [] Musculoskeletal: Denies back pain or joint pain [] Integument: Denies rash or skin lesions [] Neurologic: Denies headache, focal weakness or sensory changes [] Endocrine: Complains of elevated blood glucose. All other systems were reviewed and found to be within normal limits, except as documented in this note. Current Medications Current Medications Current Medications Medications (Trade) Dose Ordered Sig/Naya Start Time Stop Time Status Last Admin Dose Admin Heparin Sodium (Porcine) (Hep Lock Adult) 500 unit 1X ONCE 12/02/18 03:30 12/02/18 03:30 DC Info (CONTRAST GIVEN -- Rx MONITORING) 1 each PRN DAILY PRN 12/02/18 01:00 12/02/18 03:26 DC Iohexol (Omnipaque 300 Mg/ml) 100 ml STK-MED ONCE 12/02/18 05:07 12/02/18 05:08 DC Metoclopramide HCl (Reglan Vial) 10 mg STK-MED ONCE 12/01/18 23:39 12/01/18 23:40 DC Morphine Sulfate (Morphine Sulfate) 4 mg 1X ONCE 12/02/18 00:00 12/02/18 00:01 DC 12/02/18 00:02 4 MG Ondansetron HCl (Zofran) 4 mg 1X ONCE 12/01/18 22:15 12/01/18 22:16 DC 12/01/18 22:07 4 MG Sodium Chloride 1,000 ml @ 1,000 mls/hr 1X ONCE 12/01/18 20:45 12/01/18 21:44 DC 12/01/18 22:03 1,000 MLS/HR Tramadol HCl (Ultram) 50 mg 1X ONCE 12/02/18 03:00 12/02/18 03:01 DC 12/02/18 03:00 50 MG Allergies Allergies Allergies Coded Allergies Type Severity Reaction Last Updated Verified Penicillins Allergy Severe ANAPHYLAXIS, cefepime ok 11/12/16 Yes doxycycline Allergy Intermediate 11/12/16 Yes fentanyl Allergy Intermediate 11/12/16 Yes I S O L A T I O N *CONTACT* Allergy Unknown 11/03/18 Yes cefepime Adverse Reaction Intermediate "makes her feel sick" 11/03/18 Yes hydrocodone Adverse Reaction Intermediate itching 11/12/16 Yes Physical Exam Physical Exam Constitutional: Well developed, well nourished, no acute distress, non-toxic appearance. HENT: Normocephalic, atraumatic, normocaphalic Eyes: PERRL, EOMI Neck: Normal range of motion, no tenderness, supple Cardiovascular:Heart rate regular rhythm, no murmur Resp: Bilateral breath sounds clear to auscultation Abdomen: Left upper quadrant tenderness Skin: Warm, dry, no erythema, no rash. Back: No tenderness, no CVA tenderness. Extremities: No tenderness, ROM intact, no edema. Neurologic: Alert and oriented X 3, normal motor function, normal sensory function, no focal deficits noted. Psychologic: Affect normal, judgement normal, mood normal. Current Patient Data Vital Signs Vital Signs Date Time Temp Pulse Resp B/P (MAP) Pulse Ox O2 Delivery O2 Flow Rate FiO2 12/02/18 03:00 98 Room Air 12/02/18 02:48 122 131/71 (91) 12/02/18 00:02 26 12/01/18 20:37 98.5 98.5 Lab Values Laboratory Tests Test 12/01/18 20:21 12/01/18 20:32 12/01/18 21:40 Urine Collection Type Unknown Urine Color Yellow Urine Clarity Clear Urine pH 6.5 Urine Specific Roll 1.010 Urine Protein Negative mg/dL (NEG-TRACE) Urine Glucose (UA) >=1000 mg/dL (NEG) Urine Ketones (Stick) Negative mg/dL (NEG) Urine Blood Moderate (NEG) Urine Nitrite Negative (NEG) Urine Bilirubin Negative (NEG) Urine Urobilinogen Dipstick 0.2 mg/dL (0.2 mg/dL) Urine Leukocyte Esterase Negative (NEG) Urine RBC 1-2 /HPF (0-2) Urine WBC 1-4 /HPF (0-4) Urine Squamous Epithelial Cells Many /LPF Urine Bacteria Moderate /HPF (0-FEW) Urine Yeast Present /HPF Urine Test Negative (NEG) Glucose (Fingerstick) 325 mg/dL (70-99) H White Blood Count 4.3 x10^3/uL (4.0-11.0) Red Blood Count 4.13 x10^6/uL (3.50-5.40) Hemoglobin 9.5 g/dL (12.0-15.5) L Hematocrit 30.1 % (36.0-47.0) L Mean Corpuscular Volume 73 fL (79-100) L Mean Corpuscular Hemoglobin 23 pg (25-35) L Mean Corpuscular Hemoglobin Concent 32 g/dL (31-37) Red Cell Distribution Width 16.1 % (11.5-14.5) H Platelet Count 184 x10^3/uL (140-400) Neutrophils (%) (Auto) 63 % (31-73) Lymphocytes (%) (Auto) 30 % (24-48) Monocytes (%) (Auto) 7 % (0-9) Eosinophils (%) (Auto) 0 % (0-3) Basophils (%) (Auto) 0 % (0-3) Neutrophils # (Auto) 2.7 x10^3uL (1.8-7.7) Lymphocytes # (Auto) 1.3 x10^3/uL (1.0-4.8) Monocytes # (Auto) 0.3 x10^3/uL (0.0-1.1) Eosinophils # (Auto) 0.0 x10^3/uL (0.0-0.7) Basophils # (Auto) 0.0 x10^3/uL (0.0-0.2) Sodium Level 132 mmol/L (136-145) L Potassium Level 3.7 mmol/L (3.5-5.1) Chloride Level 101 mmol/L (98-107) Carbon Dioxide Level 21 mmol/L (21-32) Anion Gap 10 (6-14) Blood Urea Nitrogen 6 mg/dL (7-20) L Creatinine 0.6 mg/dL (0.6-1.0) Estimated GFR (Cockcroft-Gault) 118.2 BUN/Creatinine Ratio 10 (6-20) Glucose Level 194 mg/dL (70-99) H Calcium Level 8.5 mg/dL (8.5-10.1) Total Bilirubin 0.2 mg/dL (0.2-1.0) Aspartate Amino Transferase (AST) 39 U/L (15-37) H Alanine Aminotransferase (ALT) 28 U/L (14-59) Alkaline Phosphatase 512 U/L (46-116) H Total Protein 7.0 g/dL (6.4-8.2) Albumin 2.8 g/dL (3.4-5.0) L Albumin/Globulin Ratio 0.7 (1.0-1.7) L Lipase 134 U/L (73-393) Laboratory Tests 12/01/18 21:40 Laboratory Tests 12/01/18 21:40 EKG EKG [] Radiology/Procedures Radiology/Procedures PROCEDURE: CT ABD PELV W/ IV CONTRST ONLY PQRS Compliance statement: One or more of the following individualized dose reduction techniques were utilized for this examination: 1. Automated exposure control. 2. Adjustment of the mA and/or kV according to patient size. 3. Use of iterative reconstruction technique. Indication:ABD PAIN; OMNI 300, 75ML TECHNIQUE: CT abdomen and pelvis with IV contrast with multiplanar reformats. COMPARISON: 10/08/2018 FINDINGS: Heart is normal in size. No pericardial or pleural effusion. Stable cardiophrenic recess lymph node measuring 1.7 x 1.0 cm. Interstitial opacities in the visualized lung bases. Motion artifact is seen in the abdomen limiting optimal evaluation. Liver is moderately enlarged measuring 26 cm in craniocaudal dimension. Spleen is moderately enlarged measuring 19 cm without focal lesion. Status post cholecystectomy. Pancreas within normal limits. No adrenal gland mass or nodules. No nephrolithiasis or hydronephrosis. No enlarged retroperitoneal or pelvic adenopathy. No free pelvic fluid or ascites. No bowel obstruction. Anteverted uterus. Urinary bladder is distended without radiopaque stone or focal lesion. No pneumoperitoneum. No suspicious bony lesion. IMPRESSION: 1. Moderate hepatomegaly, nonspecific. 2. Interstitial opacities in the visualized lung bases may be secondary to interstitial pulmonary edema or atypical/viral infection. Electronically signed by: Eddie Reid DO (12/02/2018 1:20 AM) [facility] Course & Med Decision Making Course & Med Decision Making Pertinent Labs and Imaging studies reviewed. (See chart for details) Ordered labs, IV fluids, pain medication, nausea medicine. Labs are within normal limits except blood glucose of 194. Patient has had a lot of CT scans in the past and so I discussed medicine dangers of having too many CT scans. Patient understands the risks and dangers but wants to have another CAT scan today. CT scan does not show any acute disease. Possible atelectasis or opacity in the left lung. Discussed results and plan of care patient and family. We will treat patient with oral Levaquin. Patient also requests oral tramadol for pain control. Discussed results and plan of care with patient. Patient is instructed to follow up with PCP in one to 2 days. Appropriate discharge instructions given to patient to return to the ED or to seek immediate medical evaluation. Dragon Disclaimer Carmen Disclaimer This electronic medical record was generated, in whole or in part, using a voice recognition dictation system. Departure Departure Referrals: NO PCP (PCP) Scripts Tramadol Hcl (TRAMADOL HCL) 50 Mg Tablet 50 MG PO BID PRN for PAIN, #10 TAB Prov: VENITA HOBBS DO 12/02/18 Levofloxacin (LEVAQUIN) 500 Mg Tablet 1 TAB PO DAILY, #5 TAB Prov: VENITA HOBBS DO 12/02/18 VENITA HOBBS DO December 02, 2018 01:37
[2018-12-02] MEDS ORDERED: LEVO500T59 PO (02:40)
[2018-12-02] MEDS ORDERED: TRAM50TA PO (02:42)
[2018-12-02] MEDS ORDERED: HEPARIN PF 500 UNIT/5 ML DISP.SYRIN. IV ONE ×2 (02:47→03:30)
[2018-12-02 02:48] VITALS: BP 131/71
[2018-12-02] MEDS ORDERED: traMADol 50 MG TABLET PO ONE (03:00)
[2018-12-02] MEDS ORDERED: IOHEXOL 300 MG/ML 100ML VIAL. ONE (05:07)
== END 2018-12-02 02:56 | disposition home or self-care (01) ==
LOC: ER 20:19
DX: R10.12 Left upper quadrant pain (principal); E10.65 Type 1 diabetes mellitus with hyperglycemia; F41.9 Anxiety disorder, unspecified; Z98.890 Other specified postprocedural states; Z88.0 Allergy status to penicillin; Z88.1 Allergy status to other antibiotic agents; Z88.4 Allergy status to anesthetic agent; Z88.5 Allergy status to narcotic agent; Z91.041 Radiographic dye allergy status; Z88.8 Allergy status to other drugs, medicaments and biological substances
CPT/HCPCS: 36415; 74177; 80053; 81001; 81025; 82962; 83690; 85025; 87086; 96361; 96374; 96375; 96376; 99285; J2270; J2405; J2765; J7030; Q9967; 87186

== ENCOUNTER 2018-12-06 22:27 | Inpatient (IN) | payer SELFPAY ==
[~2018-12-06] VITALS: Ht 170.2 cm; Wt 89.4 kg
[2018-12-06] MEDS ORDERED: IV NORMAL SALINE 1000ML BAG 1,000 ML IV ONE (22:45)
[2018-12-06] MEDS ORDERED: INSULIN REGULAR 100 UNIT/ML 3ML VIAL. SQ ONE (22:45)
--- NOTE | 2018-12-06 22:56 | PHYS DOC ---
Past Medical History Past Medical History: Anemia, Anxiety, Diabetes-Type I, DVT, Ovarian Cyst Additional Past Medical Histor: VENTRAL HERNIA, L leg clot Past Surgical History: Other Additional Past Surgical Histo: R fallopian, L ovary cyst removed,HERNIA REPAIR, I&D L ARM, left thumb amp Alcohol Use: None Drug Use: None Adult General Chief Complaint Chief Complaint: OTHER COMPLAINTS HPI HPI 27 y/o female with pmh of DM1 presents with report of being called with positive UCX results from recent ED visit on 12/01/18. UCX noted multidrug resistant VRE. Patient had been seen previously with complaint of LUQ abdominal pain and fluctuating blood sugars. [facility] review noted patient afebrile at that time with normal WBC and CT abd/pelvis which noted possible atelectasis vs infiltrate. Patient was sent home on Levaquin and Tramadol for pain. Patient reports symptoms have not resolved and now with left sided back pain. Denies fever. Reports generalized weakness. Denies . Review of Systems Review of Systems Constitutional: Denies fever or chills [] Eyes: Denies change in visual acuity, redness, or eye pain [] HENT: Denies nasal congestion or sore throat [] Respiratory: Denies cough or shortness of breath [] Cardiovascular: Denies chest pain or palpitations GI: Reports LUQ abdominal pain and nausea; Denies vomiting or diarrhea [] : Denies dysuria or hematuria [] Musculoskeletal: Denies joint pain; reports left back/flank pain Integument: Denies rash or skin lesions [] Neurologic: Denies headache, focal weakness or sensory changes; reports genera lized weakness Complete systems were reviewed and found to be within normal limits, except as documented in this note. Current Medications Current Medications Current Medications Medications (Trade) Dose Ordered Sig/Naya Start Time Stop Time Status Last Admin Dose Admin Insulin Human Regular (HumuLIN R VIAL) 14 unit 1X ONCE 12/06/18 22:45 12/06/18 22:50 DC 12/06/18 23:14 14 UNIT Sodium Chloride 1,000 ml @ 1,000 mls/hr 1X ONCE 12/06/18 22:45 12/06/18 23:44 DC 12/06/18 23:04 1,000 MLS/HR Allergies Allergies Allergies Coded Allergies Type Severity Reaction Last Updated Verified Penicillins Allergy Severe ANAPHYLAXIS, cefepime ok 11/12/16 Yes doxycycline Allergy Intermediate 11/12/16 Yes fentanyl Allergy Intermediate 11/12/16 Yes I S O L A T I O N *CONTACT* Allergy Unknown 11/03/18 Yes cefepime Adverse Reaction Intermediate "makes her feel sick" 11/03/18 Yes hydrocodone Adverse Reaction Intermediate itching 11/12/16 Yes Physical Exam Physical Exam Constitutional: Well developed, well nourished, no acute distress, non-toxic appearance. [] HENT: Normocephalic, atraumatic, oropharynx moist Eyes: Conjunctiva normal, no discharge. [] Neck: Normal range of motion, no tenderness, supple, no meningeal signs Cardiovascular: Tachycardia, regular rhythm Lungs & Thorax: Bilateral breath sounds clear to auscultation [] Abdomen: Soft, mild LUQ tenderness Skin: Warm, dry, no erythema, no rash. [] Back: No tenderness, left CVA tenderness. [] Extremities: No tenderness, ROM intact, no edema. [] Neurologic: Alert and oriented X 3, no focal deficits noted. [] Psychologic: Affect normal, judgement normal, mood normal. [] Current Patient Data Vital Signs Vital Signs Date Time Temp Pulse Resp B/P (MAP) Pulse Ox O2 Delivery O2 Flow Rate FiO2 12/06/18 22:40 98.4 117 18 139/40 (73) 92 Room Air 98.4 Lab Values Laboratory Tests Test 12/06/18 22:39 Glucose (Fingerstick) 532 mg/dL (70-99) *H EKG EKG [] Radiology/Procedures Radiology/Procedures [] Course & Med Decision Making Course & Med Decision Making Pertinent Lab studies reviewed. (See chart for details) Patient presents with report of positive multidrug resistant VRE on UCX from ED visit from 12/01/18. Patient currently on levaquin which is resistant. Reports continued LUQ and left back/flank pain. Patient also with DM1. Hyperglycemia noted. IVF hydration given. Hyperglycemia addressed. Labs obtained and posted to chart. Leukopenia noted. Patient meets SIRS criteria for tachycardia and leukopenia. Lactic acid also elevated. Severe sepsis criteria met. Monotherapy utilized due to known Blood cultures. Patient requiring admission for further evaluation and treatment. Discussed with Dr. Jeter (hospitalist) who is in agreement with admit. Discussed findings and plan with patient and family, who acknowledge understanding and ag reement. Carmen Disclaimer Nicoletteon Disclaimer This electronic medical record was generated, in whole or in part, using a voice recognition dictation system. Departure Departure Impression: Primary Impression: Severe sepsis Additional Impressions: VRE (vancomycin resistant enterococcus) culture positive Hyperglycemia due to type 1 diabetes mellitus Disposition: ADMITTED INPATIENT Admitting Physician: Lei Chery Condition: GUARDED Referrals: NO PCP (PCP) Critical Care Time Critical care time was 30 minutes which includes time at bedside, spent in discussion of patient's care with specialists and/or family members, with interpretation of laboratory and/or radiological studies and is exclusive of procedures. Date and Time of Reassessment Date: December 06, 2018 Time: 23:06 Fluid Challenge Is the fluid challenge complet: No Vital Signs Vital Signs: Vital Signs Date Time Temp Pulse Resp B/P (MAP) Pulse Ox O2 Delivery O2 Flow Rate FiO2 12/06/18 22:40 98.4 117 18 139/40 (73) 92 Room Air 98.4 Temperature Source: Oral Respirations Respiratory Effort: Normal, Non-Labored Respiratory Pattern: Normal Cardiovascular Pulse Rhythm: Regular (tachycardia) Heart: No murmurs noted, No JVD Lung Sounds Breath Sounds: Clear Capillary Refil Capillary Refill: Rt Hand < 3 seconds Peripheral Pulse Pulse Location: Radial Pulse Strength: Normal (2+) Pulse Assessment Method: NIBP Integumentary Skin: Warm, Dry Skin Moisture: Dry Skin Turgor: Normal Skin Color: warm, dry Fingernail Color: WNL Problem Qualifiers DOMINIC MANCINI DO December 06, 2018 22:56
[2018-12-06] MEDS ORDERED: DEXTROSE 50% 25 GM / 50ML DISP.SYRIN. IV PRN (23:00)
[2018-12-06] MEDS ORDERED: ACETAMINOPHEN 325 MG TABLET. PO PRN (23:00)
[2018-12-06] MEDS ORDERED: ONDANSETRON PF 4 MG/2 ML VIAL. IV PRN (23:00)
[2018-12-06 23:19] LABS: BASO % 1 % (0-3); EOS % 1 % (0-3); HEMATOCRIT 33.1 % (36.0-47.0); HEMOGLOBIN 10.3 g/dL (12.0-15.5); LYMPH # 1.4 x10^3/uL (1.0-4.8); LYMPH % 37 % (24-48); MEAN CORPUSCULAR HEMOGLOBIN 23 pg (25-35); MEAN CORPUSCULAR HGB CONC 31 g/dL (31-37); MEAN CORPUSCULAR VOLUME 74 fL (79-100); MONO # 0.3 x10^3/uL (0.0-1.1); MONO % 9 % (0-9); NEUT % 53 % (31-73); PLATELET COUNT 209 x10^3/uL (140-400); RED BLOOD COUNT 4.46 x10^6/uL (3.50-5.40); RED CELL DISTRIBUTION WIDTH 17.1 % (11.5-14.5); WHITE BLOOD COUNT 3.8 x10^3/uL (4.0-11.0)
[2018-12-06] MEDS: ONDANSETRON PF 4 MG/2 ML VIAL. IV PRN (23:31)
[2018-12-06 23:34] LABS: BILIRUBIN,URINE NEGATIVE (NEG); CLARITY,URINE CLEAR; COLOR,URINE YELLOW; NITRITE,URINE NEGATIVE (NEG); PROTEIN,URINE NEGATIVE (NEG-TRACE); UROBILINOGEN,URINE 0.2 mg/dL (0.2 mg/dL)
[2018-12-06] MEDS: MORPHINE SULFATE 4 MG/ML VIAL. IV PRN (23:34)
[2018-12-06 23:40] LABS: SQUAMOUS EPITHELIAL CELL,UR MOD /LPF
[2018-12-06 23:41] LABS: BACTERIA,URINE 0 /HPF (0-FEW)
[2018-12-06 23:44] LABS: ALBUMIN 2.7 g/dL (3.4-5.0); ALBUMIN/GLOBULIN RATIO 0.6 (1.0-1.7); CREATININE 0.8 mg/dL (0.6-1.0); GFR 84.8; MAGNESIUM 1.6 mg/dL (1.8-2.4); POTASSIUM 4.5 mmol/L (3.5-5.1); TOTAL BILIRUBIN 0.3 mg/dL (0.2-1.0); TOTAL PROTEIN 7.3 g/dL (6.4-8.2)
[2018-12-07] VITALS (7 sets, daily range): BP systolic 96–120; BP diastolic 67–79
[2018-12-07] MEDS ORDERED: DIAZ5TAB PO (01:52)
--- NOTE | 2018-12-07 01:52 | NUR ---
The patient, SAMANTHA DOWD, 27 y/o, F admitted by JESSICA KOENIG MD, was given written information regarding hospital policies, unit procedures and contact persons. Report received from Antione HERNANDEZ from the ER Valuables were checked and left with patient .
--- NOTE | 2018-12-07 02:35 | NUR ---
Pt triggered a positive sepsis screen. VRE in urine and is receiving antibiotics. HR was 107 and has a WBC of 3.8. First lactic acid draw in ER was 2.4, second lactic acid draw was ordered. Dr. Reis was notified at 0235. All other vitals are stable. Will continue to monitor.
[2018-12-07] MEDS: MORPHINE SULFATE 4 MG/ML VIAL. IV PRN ×2 (03:41→07:50)
[2018-12-07] MEDS ORDERED: INSULIN LISPRO 300 UNITS/3 ML INSULN.PEN. SQ ONE (04:45)
[2018-12-07] MEDS: ONDANSETRON PF 4 MG/2 ML VIAL. IV PRN (07:49)
[2018-12-07] MEDS ORDERED: INSULIN LISPRO 300 UNITS/3 ML INSULN.PEN. SQ SCH ×3 (08:00→12:00)
--- NOTE | 2018-12-07 08:14 | NUR ---
SW following pt for anticipated dc needs. Chart reviewed. Pt lives at home and no SW needs noted at this time. Will continue to evaluate dc needs.
[2018-12-07] MEDS ORDERED: DEXTROSE 50% 25 GM / 50ML DISP.SYRIN. IV PRN (09:00)
[2018-12-07] MEDS ORDERED: KETOROLAC 15 MG/ML VIAL. IV PRN (09:00)
--- NOTE | 2018-12-07 09:04 | NUR ---
IP: Pt is currently vre + in urine and has a hx of ESBL on 11/06/18. Pt to be in contact precautions.
[2018-12-07] MEDS ORDERED: INSULIN GLARGINE 300 UNITS/3 ML INSULN.PEN. SQ SCH (10:00)
[2018-12-07] MEDS ORDERED: ALPRAZolam 0.5 MG TABLET PO PRN (10:00)
--- NOTE | 2018-12-07 10:08 | PDOC1 ---
History and Physical Date of Admission Date of Admission DATE: 12/07/18 TIME: 10:03 Identification/Chief Complaint Chief Complaint called by ER staff to come bec of VRE urine in ER 4 days ago Source Source: Caregiver, Chart review, Patient History of Present Illness History of Present Illness SHe went to ER 4 days ago, UA done, Sent home, She is a freq flier and known HONK and VRE UTI. IN tammi past 2 admits, she grew VRE UTI sensitive to cipro or bactrim and thats what I dcd her with, She was called by ER staff to come to be admitted bec 2 days later VRE UTI is growing in urine cx with resistance to most abx,. UA at ER last night showed wbc 5-10 with bacteria 0 and neg leuks and neg nitrites. I dw micro - re culture, also dw patient, fam at bedside and RN at bedside Will start zyvox SP on chart, she claims medicaid will kick in soon BS 579 on admit, denies non compliance to insulin, On the ff regimen: 80 BID long acting and 20 humalog mealtimes Past Medical History Cardiovascular: HTN Pulmonary: Bronchitis Psych: Anxiety Rheumatologic: No pertinent hx Endocrine: Diabetes, Other Past Surgical History Past Surgical History: Appendectomy, Cholecystectomy, , Hernia Repair, Other Family History Family History: Hypertension, Other Family History: Parent Social History Smoke: No ALCOHOL: none Drugs: None Current Problem List Problem List Problems Medical Problems: (1) Hyperglycemia due to type 1 diabetes mellitus Status: Acute (2) VRE (vancomycin resistant enterococcus) culture positive Status: Acute Current Medications Current Medications Current Medications Sodium Chloride 1,000 ml @ 1,000 mls/hr 1X ONCE IV Last administered on 12/06/18at 23:04; Start 12/06/18 at 22:45; Stop 12/06/18 at 23:44; Status DC Insulin Human Regular (HumuLIN R VIAL) 14 unit 1X ONCE SQ Last administered on 12/06/18at 23:14; Start 12/06/18 at 22:45; Stop 12/06/18 at 22:50; Status DC Linezolid/Dextrose 300 ml @ 300 mls/hr 1X ONCE IV Last administered on 12/06/18at 23:54; Start 12/06/18 at 23:00; Stop 12/06/18 at 23:59; Status DC Ondansetron HCl (Zofran) 4 mg PRN Q8HRS PRN IV NAUSEA/VOMITING; Start 12/06/18 at 23:00; Stop 12/07/18 at 22:59 Acetaminophen (Tylenol) 650 mg PRN Q4HRS PRN PO FEVER Last administered on 12/06/18at 23:59; Start 12/06/18 at 23:00; Stop 12/07/18 at 22:59 Insulin Human Lispro (HumaLOG) 0-5 UNITS TIDWMEALS SQ ; Start 12/07/18 at 08:00; Stop 12/07/18 at 08:00; Status DC Dextrose (Dextrose 50%-Water Syringe) 12.5 gm PRN Q15MIN PRN IV SEE COMMENTS; Start 12/06/18 at 23:00 Morphine Sulfate (Morphine Sulfate) 4 mg PRN Q4HRS PRN IV MODERATE PAIN Last administered on 12/07/18at 07:50; Start 12/06/18 at 23:15; Stop 12/07/18 at 07:50; Status DC Ondansetron HCl (Zofran) 4 mg PRN Q6HRS PRN IV NAUSEA/VOMITING Last administered on 12/07/18at 07:49; Start 12/06/18 at 23:15 Insulin Human Lispro (HumaLOG) 0-9 UNITS TIDWMEALS SQ ; Start 12/07/18 at 08:00 Insulin Human Lispro (HumaLOG) 8 units 1X ONCE SQ Last administered on 12/07/18at 04:45; Start 12/07/18 at 04:45; Stop 12/07/18 at 04:52; Status DC Diazepam (Valium) 5 mg TID PO ; Start 12/07/18 at 10:00 Ferrous Sulfate (Feosol) 325 mg BIDWMEALS PO ; Start 12/07/18 at 10:00 Insulin Glargine (Lantus) 40 units DAILYAC SQ ; Start 12/07/18 at 10:00; Stop 12/07/18 at 10:02; Status DC Insulin Human Lispro (HumaLOG) 10 units TIDWMEALS SQ ; Start 12/07/18 at 12:00; Stop 12/07/18 at 12:00; Status DC Quetiapine Fumarate (SEROquel) 100 mg QHS PO ; Start 12/07/18 at 21:00 Insulin Human Lispro (HumaLOG) 0-9 UNITS TIDWMEALS SQ ; Start 12/07/18 at 12:00 Dextrose (Dextrose 50%-Water Syringe) 12.5 gm PRN Q15MIN PRN IV SEE COMMENTS; Start 12/07/18 at 09:00 Oxycodone/ Acetaminophen (Percocet 5/325) 1 tab PRN Q4HRS PRN PO MODERATE TO SEVERE PAIN; Start 12/07/18 at 09:00 Ketorolac Tromethamine (Toradol 15mg Vial) 15 mg PRN Q6HRS PRN IV MODERATE PAIN; Start 12/07/18 at 09:00; Stop 12/12/18 at 08:59 Insulin Glargine (Lantus) 80 units BID SQ ; Start 12/07/18 at 21:00; Status UNV Insulin Human Lispro (HumaLOG) 20 units TIDWMEALS SQ ; Start 12/07/18 at 12:00; Status UNV Alprazolam (Xanax) 0.5 mg PRN Q8HRS PRN PO ANXIETY / AGITATION; Start 12/07/18 at 10:00; Status UNV Linezolid/Dextrose 300 ml @ 300 mls/hr Q12HR IV ; Start 12/07/18 at 21:00; Status UNV Active Scripts Active Humalog (Insulin Lispro) 100 Unit/1 Ml Insuln.pen 10 Units SQ TIDWMEALS 30 Days Dispense BD fine pen needles 4mm 31g #100 for QID dosing Lantus Solostar (Insulin Glargine,Hum.rec.anlog) 100 Unit/1 Ml Insuln.pen 40 Unit SQ DAILYAC 30 Days Dispense pen needles BD FINE 4mm 31g #100 per month or nearest affordable length/diameter Reported Valium (Diazepam) 5 Mg Tablet 5 Mg PO TID Seroquel (Quetiapine Fumarate) 100 Mg Tablet 1 Tab PO QHS Ferrous Sulfate 325 Mg Tablet 325 Mg PO BID Allergies Allergies: Coded Allergies: Penicillins (Verified Allergy, Severe, ANAPHYLAXIS, cefepime ok, 11/12/16) doxycycline (Verified Allergy, Intermediate, 11/12/16) fentanyl (Verified Allergy, Intermediate, 11/12/16) I S O L A T I O N *CONTACT* (Verified Allergy, Unknown, 11/03/18) VRE/ESBL cefepime (Verified Adverse Reaction, Intermediate, "makes her feel sick", 11/03/18) hydrocodone (Verified Adverse Reaction, Intermediate, itching, 11/12/16) ROS Review of System bloatedneds, some fullness but otherwise negative ROS 14 point Physical Exam General: Alert, Oriented X3, Cooperative, No acute distress HEENT: Atraumatic, PERRLA, EOMI Lungs: Clear to auscultation, Normal air movement Heart: S1S2, RRR, no thrills, no rubs, no gallops, no murmurs Cardiovascular: S1, S2 Abdomen: Normal bowel sounds Rectal Exam: not examined PELVIC: Nml ext genitalia Extremities: No clubbing, No cyanosis, No edema, Normal pulses, No tenderness/swelling Skin: No rashes, No breakdown, No significant lesion Neuro: Normal gait, Normal speech, Strength at 5/5 X4 ext, Normal tone, Sensation intact, Cranial nerves 3-12 NL, Reflexes 2+ Psych/Mental Status: Mental status NL, Mood NL Vitals Vitals Vital Signs Date Time Temp Pulse Resp B/P (MAP) Pulse Ox O2 Delivery O2 Flow Rate FiO2 12/07/18 07:50 16 Room Air 12/07/18 07:00 97.9 104 103/73 (83) 94 97.9 Labs Labs Laboratory Tests Test 12/06/18 22:39 12/06/18 23:00 12/06/18 23:24 12/06/18 23:28 Glucose (Fingerstick) 532 mg/dL (70-99) White Blood Count 3.8 x10^3/uL (4.0-11.0) Red Blood Count 4.46 x10^6/uL (3.50-5.40) Hemoglobin 10.3 g/dL (12.0-15.5) Hematocrit 33.1 % (36.0-47.0) Mean Corpuscular Volume 74 fL (79-100) Mean Corpuscular Hemoglobin 23 pg (25-35) Mean Corpuscular Hemoglobin Concent 31 g/dL (31-37) Red Cell Distribution Width 17.1 % (11.5-14.5) Platelet Count 209 x10^3/uL (140-400) Neutrophils (%) (Auto) 53 % (31-73) Lymphocytes (%) (Auto) 37 % (24-48) Monocytes (%) (Auto) 9 % (0-9) Eosinophils (%) (Auto) 1 % (0-3) Basophils (%) (Auto) 1 % (0-3) Neutrophils # (Auto) 2.0 x10^3uL (1.8-7.7) Lymphocytes # (Auto) 1.4 x10^3/uL (1.0-4.8) Monocytes # (Auto) 0.3 x10^3/uL (0.0-1.1) Eosinophils # (Auto) 0.0 x10^3/uL (0.0-0.7) Basophils # (Auto) 0.0 x10^3/uL (0.0-0.2) Sodium Level 128 mmol/L (136-145) Potassium Level 4.5 mmol/L (3.5-5.1) Chloride Level 95 mmol/L (98-107) Carbon Dioxide Level 27 mmol/L (21-32) Anion Gap 6 (6-14) Blood Urea Nitrogen 6 mg/dL (7-20) Creatinine 0.8 mg/dL (0.6-1.0) Estimated GFR (Cockcroft-Gault) 84.8 BUN/Creatinine Ratio 8 (6-20) Glucose Level 579 mg/dL (70-99) Lactic Acid Level 2.4 mmol/L (0.4-2.0) Calcium Level 9.0 mg/dL (8.5-10.1) Magnesium Level 1.6 mg/dL (1.8-2.4) Total Bilirubin 0.3 mg/dL (0.2-1.0) Aspartate Amino Transf (AST/SGOT) 24 U/L (15-37) Alanine Aminotransferase (ALT/SGPT) 24 U/L (14-59) Alkaline Phosphatase 534 U/L (46-116) Total Protein 7.3 g/dL (6.4-8.2) Albumin 2.7 g/dL (3.4-5.0) Albumin/Globulin Ratio 0.6 (1.0-1.7) Acetone Level Neg (NEG) Urine Collection Type Unknown Urine Color Yellow Urine Clarity Clear Urine pH 7.0 Urine Specific [place] 1.025 Urine Protein Negative mg/dL (NEG-TRACE) Urine Glucose (UA) >=1000 mg/dL (NEG) Urine Ketones (Stick) Negative mg/dL (NEG) Urine Blood Negative (NEG) Urine Nitrite Negative (NEG) Urine Bilirubin Negative (NEG) Urine Urobilinogen Dipstick 0.2 mg/dL (0.2 mg/dL) Urine Leukocyte Esterase Negative (NEG) Urine RBC 3-5 /HPF (0-2) Urine WBC 5-10 /HPF (0-4) Urine Squamous Epithelial Cells Mod /LPF Urine Bacteria 0 /HPF (0-FEW) Bedside Urine HCG, Qualitative Hcg negative (Negative) Test 12/07/18 03:09 12/07/18 04:30 12/07/18 08:16 Glucose (Fingerstick) 431 mg/dL (70-99) 324 mg/dL (70-99) 221 mg/dL (70-99) Laboratory Tests Test 12/06/18 22:39 12/06/18 23:00 12/06/18 23:24 12/06/18 23:28 Glucose (Fingerstick) 532 mg/dL (70-99) White Blood Count 3.8 x10^3/uL (4.0-11.0) Red Blood Count 4.46 x10^6/uL (3.50-5.40) Hemoglobin 10.3 g/dL (12.0-15.5) Hematocrit 33.1 % (36.0-47.0) Mean Corpuscular Volume 74 fL (79-100) Mean Corpuscular Hemoglobin 23 pg (25-35) Mean Corpuscular Hemoglobin Concent 31 g/dL (31-37) Red Cell Distribution Width 17.1 % (11.5-14.5) Platelet Count 209 x10^3/uL (140-400) Neutrophils (%) (Auto) 53 % (31-73) Lymphocytes (%) (Auto) 37 % (24-48) Monocytes (%) (Auto) 9 % (0-9) Eosinophils (%) (Auto) 1 % (0-3) Basophils (%) (Auto) 1 % (0-3) Neutrophils # (Auto) 2.0 x10^3uL (1.8-7.7) Lymphocytes # (Auto) 1.4 x10^3/uL (1.0-4.8) Monocytes # (Auto) 0.3 x10^3/uL (0.0-1.1) Eosinophils # (Auto) 0.0 x10^3/uL (0.0-0.7) Basophils # (Auto) 0.0 x10^3/uL (0.0-0.2) Sodium Level 128 mmol/L (136-145) Potassium Level 4.5 mmol/L (3.5-5.1) Chloride Level 95 mmol/L (98-107) Carbon Dioxide Level 27 mmol/L (21-32) Anion Gap 6 (6-14) Blood Urea Nitrogen 6 mg/dL (7-20) Creatinine 0.8 mg/dL (0.6-1.0) Estimated GFR (Cockcroft-Gault) 84.8 BUN/Creatinine Ratio 8 (6-20) Glucose Level 579 mg/dL (70-99) Lactic Acid Level 2.4 mmol/L (0.4-2.0) Calcium Level 9.0 mg/dL (8.5-10.1) Magnesium Level 1.6 mg/dL (1.8-2.4) Total Bilirubin 0.3 mg/dL (0.2-1.0) Aspartate Amino Transf (AST/SGOT) 24 U/L (15-37) Alanine Aminotransferase (ALT/SGPT) 24 U/L (14-59) Alkaline Phosphatase 534 U/L (46-116) Total Protein 7.3 g/dL (6.4-8.2) Albumin 2.7 g/dL (3.4-5.0) Albumin/Globulin Ratio 0.6 (1.0-1.7) Acetone Level Neg (NEG) Urine Collection Type Unknown Urine Color Yellow Urine Clarity Clear Urine pH 7.0 Urine Specific [place] 1.025 Urine Protein Negative mg/dL (NEG-TRACE) Urine Glucose (UA) >=1000 mg/dL (NEG) Urine Ketones (Stick) Negative mg/dL (NEG) Urine Blood Negative (NEG) Urine Nitrite Negative (NEG) Urine Bilirubin Negative (NEG) Urine Urobilinogen Dipstick 0.2 mg/dL (0.2 mg/dL) Urine Leukocyte Esterase Negative (NEG) Urine RBC 3-5 /HPF (0-2) Urine WBC 5-10 /HPF (0-4) Urine Squamous Epithelial Cells Mod /LPF Urine Bacteria 0 /HPF (0-FEW) Bedside Urine HCG, Qualitative Hcg negative (Negative) Test 12/07/18 03:09 12/07/18 04:30 12/07/18 08:16 Glucose (Fingerstick) 431 mg/dL (70-99) 324 mg/dL (70-99) 221 mg/dL (70-99) VTE Prophylaxis Ordered VTE Prophylaxis Devices: Yes VTE Pharmacological Prophylaxi: Yes Assessment/Plan Assessment/Plan VRE UTI based on urine cultures 12-18 - dw micro HONK POA Obesity BMI 32 Multiple drug allergies Plan: IV Zyvox Consult ID Urine reculture Check a sedimentation rate I have resume home regimen A1c was 7.9 just last month CBC wbc is only 3 HIRAL EATON MD December 07, 2018 10:08
[2018-12-07] MEDS: diazePAM 5 MG TABLET PO SCH ×3 (10:16→20:52)
[2018-12-07] MEDS: FERROUS SULFATE 325 MG TABLET. PO SCH ×2 (10:16→17:04)
--- NOTE | 2018-12-07 11:46 | PDOC ---
Infectious Disease Note Vital Signs: Vital Signs Vital Signs Date Time Temp Pulse Resp B/P (MAP) Pulse Ox O2 Delivery O2 Flow Rate FiO2 12/07/18 07:50 16 Room Air 12/07/18 07:00 97.9 104 103/73 (83) 94 97.9 Medications: Inpatient Meds: Current Medications Medications (Trade) Dose Ordered Sig/Naya Start Time Stop Time Status Last Admin Dose Admin Acetaminophen (Tylenol) 650 mg PRN Q4HRS PRN 12/06/18 23:00 12/07/18 22:59 12/06/18 23:59 650 MG Alprazolam (Xanax) 0.5 mg PRN Q8HRS PRN 12/07/18 10:00 Dextrose (Dextrose 50%-Water Syringe) 12.5 gm PRN Q15MIN PRN 12/07/18 09:00 Diazepam (Valium) 5 mg TID 12/07/18 10:00 12/07/18 10:16 5 MG Ferrous Sulfate (Feosol) 325 mg BIDWMEALS 12/07/18 10:00 12/07/18 10:16 325 MG Insulin Glargine (Lantus) 80 units BID 12/07/18 21:00 Insulin Human Lispro (HumaLOG) 20 units TIDWMEALS 12/07/18 12:00 Insulin Human Regular (HumuLIN R VIAL) 14 unit 1X ONCE 12/06/18 22:45 12/06/18 22:50 DC 12/06/18 23:14 14 UNIT Ketorolac Tromethamine (Toradol 15mg Vial) 15 mg PRN Q6HRS PRN 12/07/18 09:00 12/12/18 08:59 Linezolid/Dextrose 300 ml @ 300 mls/hr Q12HR 12/07/18 11:00 12/07/18 11:19 300 MLS/HR Morphine Sulfate (Morphine Sulfate) 4 mg PRN Q4HRS PRN 12/06/18 23:15 12/07/18 07:50 DC 12/07/18 07:50 4 MG Ondansetron HCl (Zofran) 4 mg PRN Q6HRS PRN 12/06/18 23:15 12/07/18 07:49 4 MG Oxycodone/ Acetaminophen (Percocet 5/325) 1 tab PRN Q4HRS PRN 12/07/18 09:00 Quetiapine Fumarate (SEROquel) 100 mg QHS 12/07/18 21:00 Sodium Chloride 1,000 ml @ 1,000 mls/hr 1X ONCE 12/06/18 22:45 12/06/18 23:44 DC 12/06/18 23:04 1,000 MLS/HR Labs: Lab Laboratory Tests Test 12/06/18 22:39 12/06/18 23:00 12/06/18 23:24 12/06/18 23:28 Glucose (Fingerstick) 532 mg/dL (70-99) White Blood Count 3.8 x10^3/uL (4.0-11.0) Red Blood Count 4.46 x10^6/uL (3.50-5.40) Hemoglobin 10.3 g/dL (12.0-15.5) Hematocrit 33.1 % (36.0-47.0) Mean Corpuscular Volume 74 fL (79-100) Mean Corpuscular Hemoglobin 23 pg (25-35) Mean Corpuscular Hemoglobin Concent 31 g/dL (31-37) Red Cell Distribution Width 17.1 % (11.5-14.5) Platelet Count 209 x10^3/uL (140-400) Neutrophils (%) (Auto) 53 % (31-73) Lymphocytes (%) (Auto) 37 % (24-48) Monocytes (%) (Auto) 9 % (0-9) Eosinophils (%) (Auto) 1 % (0-3) Basophils (%) (Auto) 1 % (0-3) Neutrophils # (Auto) 2.0 x10^3uL (1.8-7.7) Lymphocytes # (Auto) 1.4 x10^3/uL (1.0-4.8) Monocytes # (Auto) 0.3 x10^3/uL (0.0-1.1) Eosinophils # (Auto) 0.0 x10^3/uL (0.0-0.7) Basophils # (Auto) 0.0 x10^3/uL (0.0-0.2) Sodium Level 128 mmol/L (136-145) Potassium Level 4.5 mmol/L (3.5-5.1) Chloride Level 95 mmol/L (98-107) Carbon Dioxide Level 27 mmol/L (21-32) Anion Gap 6 (6-14) Blood Urea Nitrogen 6 mg/dL (7-20) Creatinine 0.8 mg/dL (0.6-1.0) Estimated GFR (Cockcroft-Gault) 84.8 BUN/Creatinine Ratio 8 (6-20) Glucose Level 579 mg/dL (70-99) Lactic Acid Level 2.4 mmol/L (0.4-2.0) Calcium Level 9.0 mg/dL (8.5-10.1) Magnesium Level 1.6 mg/dL (1.8-2.4) Total Bilirubin 0.3 mg/dL (0.2-1.0) Aspartate Amino Transf (AST/SGOT) 24 U/L (15-37) Alanine Aminotransferase (ALT/SGPT) 24 U/L (14-59) Alkaline Phosphatase 534 U/L (46-116) Total Protein 7.3 g/dL (6.4-8.2) Albumin 2.7 g/dL (3.4-5.0) Albumin/Globulin Ratio 0.6 (1.0-1.7) Acetone Level Neg (NEG) Urine Collection Type Unknown Urine Color Yellow Urine Clarity Clear Urine pH 7.0 Urine Specific [place] 1.025 Urine Protein Negative mg/dL (NEG-TRACE) Urine Glucose (UA) >=1000 mg/dL (NEG) Urine Ketones (Stick) Negative mg/dL (NEG) Urine Blood Negative (NEG) Urine Nitrite Negative (NEG) Urine Bilirubin Negative (NEG) Urine Urobilinogen Dipstick 0.2 mg/dL (0.2 mg/dL) Urine Leukocyte Esterase Negative (NEG) Urine RBC 3-5 /HPF (0-2) Urine WBC 5-10 /HPF (0-4) Urine Squamous Epithelial Cells Mod /LPF Urine Bacteria 0 /HPF (0-FEW) Bedside Urine HCG, Qualitative Hcg negative (Negative) Test 12/07/18 03:09 12/07/18 04:30 12/07/18 08:16 12/07/18 09:45 Glucose (Fingerstick) 431 mg/dL (70-99) 324 mg/dL (70-99) 221 mg/dL (70-99) Erythrocyte Sedimentation Rate 40 (0-25) Lactic Acid Level 2.0 mmol/L (0.4-2.0) Test 12/07/18 11:06 Glucose (Fingerstick) 201 mg/dL (70-99) Micro UC 50-100K VRE 12/01; UA neg for infection 12/06 UA noted Objective: Assessment: Leucopenia Pyuria Leuc neg, Nitrite neg VRE UC 12/01 likely contaminant Poorly controlled DM Noncomplaince Multiple hosp in the past Urinary retention "Cyclic vomiting syndrome" Plan: Plan of Care DC Linezolid observe off antibiotics Cont supportive care [id number] LINDA FERRER MD December 07, 2018 11:46
[2018-12-07] MEDS: INSULIN LISPRO 300 UNITS/3 ML INSULN.PEN. SQ SCH ×4 (12:00→17:00)
[2018-12-07] MEDS: oxyCODONE/APAP 5/325 1 TAB TABLET PO PRN ×3 (12:06→21:44)
--- NOTE | 2018-12-07 13:39 | NUR ---
c/o back pain, percocet was administered po. 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 Pt is sitting on bed, rocking back and forth holding her abd. Pt states she needs iv pain meds. IV toradol was administered. Pt began to gag, stating that the toradol tastes bad. Pt begins to cry, refuses her meal tray, insulin held.
[2018-12-07] MEDS ORDERED: QUEtiapine 100 MG TABLET. PO SCH (21:00)
[2018-12-07] MEDS: INSULIN GLARGINE 300 UNITS/3 ML INSULN.PEN. SQ SCH (21:02)
--- NOTE | 2018-12-07 22:35 | CONS ---
DATE OF CONSULTATION: 12/07/2018 REFERRING PHYSICIAN: Dr. Billings. REASON FOR CONSULTATION: Antibiotic management for UTI. HISTORY OF PRESENT ILLNESS: A 27-year-old female with multiple admissions, who was called by the ER staff to come back as urine culture grew 50,000-100,000 VRE in the ER 4 days ago. The patient went to the ER 4 days ago with complaints of abdominal pain. UA was done, which showed 1-4 wbc, negative leukocyte esterase, negative nitrite. The patient was sent home. She then went to [facility] [place] where she reports getting one dose of IV meropenem and another antibiotic and was sent home from the hospital though she could not give me details after she came to the [facility] ED last on 12/01.. Pt now is admitted , BS were very high. Repeat UA last night in the ER showed 5-10 wbc's, negative leukocyte esterase and nitrite. The patient was started on Zyvox. The patient's blood sugar was 579 on admit. UA showed greater than 100,000 glucose. She was started on insulin regimen. No fevers. White count was normal. PAST MEDICAL AND SURGICAL HISTORY: Hypertension, anxiety disorder, diabetes, poorly controlled cyclic vomiting syndrome, appendectomy, cholecystectomy, , hernia repair, also has had multiple admissions for no good reason. SOCIAL HISTORY: Negative for alcohol, smoking, illicit drug use. ALLERGIES: LISTED PENICILLIN, CEPHALOSPORIN, she can handle, just has more itching she says and DOXYCYCLINE. REVIEW OF SYSTEMS: Negative except for above in HPI. PHYSICAL EXAMINATION: VITAL SIGNS: Temperature 97.9, pulse 104, respirations 16, blood pressure 103/73, oxygen saturation 94% on room air, T-max 98.7. GENERAL: Alert and oriented x 3 female in no acute distress. HEENT: Normocephalic, atraumatic. NECK: Supple. No JVD. LUNGS: Clear. HEART: S1, S2. ABDOMEN: Soft, benign. EXTREMITIES: No edema, no cyanosis. Multiple tattoos. DERMATOLOGIC: Warm had no generalized rash. NEUROLOGIC: Alert and oriented x 3. Grossly nonfocal. LABORATORY DATA: WBC 3.8, hemoglobin 10.3, hematocrit 33.1, platelets of 209. Sodium 128, potassium 4.5, chloride 95, bicarbonate 27, BUN 6, creatinine 0.8, glucose 579, lactate 2.4, magnesium 1.6, bilirubin 0.3. UA shows 5-10 wbc's, negative leukocyte esterase, negative nitrite, greater than 1000 wbc's. Beta hCG negative. MICROBIOLOGY: Blood culture pending. Urine culture pending. Urine culture, 12/02/2018, shows VRE 50,000-100,000 CFU per mL, linezolid sensitive, likely contaminant as the UA was negative for any infection. Diagnostics CT abdomen and pelvison 12/01 which showed moderate hepatomegaly, nonspecific interstitial opacities in the visualized lung bases, may be secondary to interstitial pulmonary edema or atypical or viral infection. There is no hydronephrosis, no nephrolithiasis, no enlarged retroperitoneal or pelvic lymphadenopathy. No free pelvic fluid or ascites. No bowel obstruction. Urinary bladder is distended without evidence of radiopaque stone. No lesion, no pneumoperitoneum. No suspicious bone lesion. IMPRESSION: 1. Leukopenia, likely viral infection. 2. Uncontrolled diabetes. 3. Lactic acidosis. 4. Pyruia, Leuc neg,nitrite neg VRE in urine cultures likely contaminant from 12/01, was treated after that at [facility] and discharged, repeat ua here now is negative 5. History of cyclic vomiting syndrome. 6. History of noncompliance and multiple hospital admissions. 7. History of urinary retention. 8. History of recurrent urinary infection in the past, but none on 12/01/2018 and 12/06/2018. RECOMMENDATIONS: 1. Discontinue linezolid. 2. Observe off antibiotics. 3. Continue supportive care. 4. Optimal diabetes mellitus management as you are doing 5. Low threshold to restart antibiotics if any hemodynamic instability. Thank you, Dr. Billings for consulting Infectious Disease to participate in this patient's care. If you have any questions, do not hesitate to contact me. LINDA FERRER MD DR: PER/ric JOB#: [id number] / [id number] VIOLETA
[2018-12-08] MEDS: oxyCODONE/APAP 5/325 1 TAB TABLET PO PRN ×3 (01:45→13:55)
[2018-12-08 03:00] VITALS: BP 120/75
[2018-12-08 07:00] VITALS: BP 113/71
[2018-12-08] MEDS: INSULIN LISPRO 300 UNITS/3 ML INSULN.PEN. SQ SCH ×4 (08:00→12:00)
[2018-12-08] MEDS: FERROUS SULFATE 325 MG TABLET. PO SCH (08:00)
--- NOTE | 2018-12-08 08:42 | PDOC ---
PROGRESS NOTES Chief Complaint Chief Complaint VRE UTI based on urine cultures 12/01/18 - dw micro HONK POA, resolved Obesity BMI 32 Multiple drug allergies Anxiety NOS History of Present Illness History of Present Illness Appreciate ID Continue to observe off antibiotics Off IV Zyvox Urine culture 12/01 showed VRE UTI resistant to most abx But UA this admission only showed 5-10 WBC with 0 bacteria 0 nitrites 0 leukocyte esterase So far afebrile, WBC 3 She does get tachycardia-but she has high anxiety component Blood sugars are much better Plan Continue current insulin regimen so far working-this is her home regimen Off Zyvox per ID recommendations Vitals Vitals Vital Signs Date Time Temp Pulse Resp B/P (MAP) Pulse Ox O2 Delivery O2 Flow Rate FiO2 12/08/18 07:00 97.5 104 14 113/71 (85) 94 Room Air 97.5 Physical Exam General: Alert, Oriented X3, Cooperative, No acute distress Heart: Regular rate, Normal S1, Normal S2, Other (sinus tachycardia 90s to low 100s) Lungs: Clear Abdomen: Normal bowel sounds Extremities: No clubbing, No cyanosis, No edema, Normal pulses, No tenderness/swelling Skin: No rashes, No breakdown, No significant lesion Labs LABS Laboratory Tests Test 12/07/18 09:45 12/07/18 11:06 12/07/18 16:43 12/07/18 20:03 Erythrocyte Sedimentation Rate 40 (0-25) Lactic Acid Level 2.0 mmol/L (0.4-2.0) Glucose (Fingerstick) 201 mg/dL (70-99) 74 mg/dL (70-99) 148 mg/dL (70-99) Test 12/08/18 08:19 Glucose (Fingerstick) 135 mg/dL (70-99) Review of Systems Review of Systems A 14 point ROS was completed with the following noted as positive: Other systems reviewed and negative. \CONSTITUTIONAL: No fever or chills EYES: No recent changes SKIN: No rash or itching CARDIOVASCULAR: No chest pain, syncope, palpitations, or edema RESPIRATORY: No SOB or cough GASTROINTESTINAL: No nausea, vomiting or abdominal pain NEUROLOGICAL: No headaches or weakness ENDOCRINE: No cold or heat intolerance GENITOURINARY: No urgency or frequency of urination MUSCULOSKELETAL: No back pain or joint pain LYMPHATICS: No enlarged lymph nodes PSYCHIATRIC: No anxiety or depression Assessment and Plan Assessmemt and Plan Problems Medical Problems: (1) Hyperglycemia due to type 1 diabetes mellitus Status: Acute (2) VRE (vancomycin resistant enterococcus) culture positive Status: Acute Comment Review of Relevant I have reviewed the following items lizbeth (where applicable) has been applied. Labs Laboratory Tests Test 12/06/18 22:39 12/06/18 23:00 12/06/18 23:24 12/06/18 23:28 Glucose (Fingerstick) 532 mg/dL (70-99) White Blood Count 3.8 x10^3/uL (4.0-11.0) Red Blood Count 4.46 x10^6/uL (3.50-5.40) Hemoglobin 10.3 g/dL (12.0-15.5) Hematocrit 33.1 % (36.0-47.0) Mean Corpuscular Volume 74 fL (79-100) Mean Corpuscular Hemoglobin 23 pg (25-35) Mean Corpuscular Hemoglobin Concent 31 g/dL (31-37) Red Cell Distribution Width 17.1 % (11.5-14.5) Platelet Count 209 x10^3/uL (140-400) Neutrophils (%) (Auto) 53 % (31-73) Lymphocytes (%) (Auto) 37 % (24-48) Monocytes (%) (Auto) 9 % (0-9) Eosinophils (%) (Auto) 1 % (0-3) Basophils (%) (Auto) 1 % (0-3) Neutrophils # (Auto) 2.0 x10^3uL (1.8-7.7) Lymphocytes # (Auto) 1.4 x10^3/uL (1.0-4.8) Monocytes # (Auto) 0.3 x10^3/uL (0.0-1.1) Eosinophils # (Auto) 0.0 x10^3/uL (0.0-0.7) Basophils # (Auto) 0.0 x10^3/uL (0.0-0.2) Sodium Level 128 mmol/L (136-145) Potassium Level 4.5 mmol/L (3.5-5.1) Chloride Level 95 mmol/L (98-107) Carbon Dioxide Level 27 mmol/L (21-32) Anion Gap 6 (6-14) Blood Urea Nitrogen 6 mg/dL (7-20) Creatinine 0.8 mg/dL (0.6-1.0) Estimated GFR (Cockcroft-Gault) 84.8 BUN/Creatinine Ratio 8 (6-20) Glucose Level 579 mg/dL (70-99) Lactic Acid Level 2.4 mmol/L (0.4-2.0) Calcium Level 9.0 mg/dL (8.5-10.1) Magnesium Level 1.6 mg/dL (1.8-2.4) Total Bilirubin 0.3 mg/dL (0.2-1.0) Aspartate Amino Transf (AST/SGOT) 24 U/L (15-37) Alanine Aminotransferase (ALT/SGPT) 24 U/L (14-59) Alkaline Phosphatase 534 U/L (46-116) Total Protein 7.3 g/dL (6.4-8.2) Albumin 2.7 g/dL (3.4-5.0) Albumin/Globulin Ratio 0.6 (1.0-1.7) Acetone Level Neg (NEG) Urine Collection Type Unknown Urine Color Yellow Urine Clarity Clear Urine pH 7.0 Urine Specific [place] 1.025 Urine Protein Negative mg/dL (NEG-TRACE) Urine Glucose (UA) >=1000 mg/dL (NEG) Urine Ketones (Stick) Negative mg/dL (NEG) Urine Blood Negative (NEG) Urine Nitrite Negative (NEG) Urine Bilirubin Negative (NEG) Urine Urobilinogen Dipstick 0.2 mg/dL (0.2 mg/dL) Urine Leukocyte Esterase Negative (NEG) Urine RBC 3-5 /HPF (0-2) Urine WBC 5-10 /HPF (0-4) Urine Squamous Epithelial Cells Mod /LPF Urine Bacteria 0 /HPF (0-FEW) Bedside Urine HCG, Qualitative Hcg negative (Negative) Test 12/07/18 03:09 12/07/18 04:30 12/07/18 08:16 12/07/18 09:45 Glucose (Fingerstick) 431 mg/dL (70-99) 324 mg/dL (70-99) 221 mg/dL (70-99) Erythrocyte Sedimentation Rate 40 (0-25) Lactic Acid Level 2.0 mmol/L (0.4-2.0) Test 12/07/18 11:06 12/07/18 16:43 12/07/18 20:03 12/08/18 08:19 Glucose (Fingerstick) 201 mg/dL (70-99) 74 mg/dL (70-99) 148 mg/dL (70-99) 135 mg/dL (70-99) Laboratory Tests Test 12/07/18 09:45 12/07/18 11:06 12/07/18 16:43 12/07/18 20:03 Erythrocyte Sedimentation Rate 40 (0-25) Lactic Acid Level 2.0 mmol/L (0.4-2.0) Glucose (Fingerstick) 201 mg/dL (70-99) 74 mg/dL (70-99) 148 mg/dL (70-99) Test 12/08/18 08:19 Glucose (Fingerstick) 135 mg/dL (70-99) Microbiology 12/06/18 Blood Culture - Preliminary, Resulted NO GROWTH AFTER 1 DAY Medications Current Medications Sodium Chloride 1,000 ml @ 1,000 mls/hr 1X ONCE IV Last administered on 12/06/18at 23:04; Start 12/06/18 at 22:45; Stop 12/06/18 at 23:44; Status DC Insulin Human Regular (HumuLIN R VIAL) 14 unit 1X ONCE SQ Last administered on 12/06/18at 23:14; Start 12/06/18 at 22:45; Stop 12/06/18 at 22:50; Status DC Linezolid/Dextrose 300 ml @ 300 mls/hr 1X ONCE IV Last administered on 12/06/18at 23:54; Start 12/06/18 at 23:00; Stop 12/06/18 at 23:59; Status DC Ondansetron HCl (Zofran) 4 mg PRN Q8HRS PRN IV NAUSEA/VOMITING; Start 12/06/18 at 23:00; Stop 12/07/18 at 22:59; Status DC Acetaminophen (Tylenol) 650 mg PRN Q4HRS PRN PO FEVER Last administered on 12/06/18at 23:59; Start 12/06/18 at 23:00; Stop 12/07/18 at 22:59; Status DC Insulin Human Lispro (HumaLOG) 0-5 UNITS TIDWMEALS SQ ; Start 12/07/18 at 08:00; Stop 12/07/18 at 08:00; Status DC Dextrose (Dextrose 50%-Water Syringe) 12.5 gm PRN Q15MIN PRN IV SEE COMMENTS; Start 12/06/18 at 23:00; Status Cancel Morphine Sulfate (Morphine Sulfate) 4 mg PRN Q4HRS PRN IV MODERATE PAIN Last administered on 12/07/18at 07:50; Start 12/06/18 at 23:15; Stop 12/07/18 at 07:50; Status DC Ondansetron HCl (Zofran) 4 mg PRN Q6HRS PRN IV NAUSEA/VOMITING Last administered on 12/07/18at 07:49; Start 12/06/18 at 23:15 Insulin Human Lispro (HumaLOG) 0-9 UNITS TIDWMEALS SQ ; Start 12/07/18 at 08:00; Stop 12/07/18 at 10:07; Status DC Insulin Human Lispro (HumaLOG) 8 units 1X ONCE SQ Last administered on 12/07/18at 04:45; Start 12/07/18 at 04:45; Stop 12/07/18 at 04:52; Status DC Diazepam (Valium) 5 mg TID PO Last administered on 12/07/18at 20:52; Start 12/07/18 at 10:00 Ferrous Sulfate (Feosol) 325 mg BIDWMEALS PO Last administered on 12/07/18at 17:04; Start 12/07/18 at 10:00 Insulin Glargine (Lantus) 40 units DAILYAC SQ ; Start 12/07/18 at 10:00; Stop 12/07/18 at 10:02; Status DC Insulin Human Lispro (HumaLOG) 10 units TIDWMEALS SQ ; Start 12/07/18 at 12:00; Stop 12/07/18 at 12:00; Status DC Quetiapine Fumarate (SEROquel) 100 mg QHS PO Last administered on 12/07/18at 20:52; Start 12/07/18 at 21:00 Insulin Human Lispro (HumaLOG) 0-9 UNITS TIDWMEALS SQ ; Start 12/07/18 at 12:00 Dextrose (Dextrose 50%-Water Syringe) 12.5 gm PRN Q15MIN PRN IV SEE COMMENTS; Start 12/07/18 at 09:00 Oxycodone/ Acetaminophen (Percocet 5/325) 1 tab PRN Q4HRS PRN PO MODERATE TO SEVERE PAIN Last administered on 12/08/18at 07:51; Start 12/07/18 at 09:00 Ketorolac Tromethamine (Toradol 15mg Vial) 15 mg PRN Q6HRS PRN IV MODERATE PAIN Last administered on 12/07/18at 13:28; Start 12/07/18 at 09:00; Stop 12/12/18 at 08:59 Insulin Glargine (Lantus) 80 units BID SQ Last administered on 12/07/18at 21:02; Start 12/07/18 at 21:00 Insulin Human Lispro (HumaLOG) 20 units TIDWMEALS SQ ; Start 12/07/18 at 12:00 Alprazolam (Xanax) 0.5 mg PRN Q8HRS PRN PO ANXIETY / AGITATION; Start 12/07/18 at 10:00 Linezolid/Dextrose 300 ml @ 300 mls/hr Q12HR IV Last administered on 12/07/18at 11:19; Start 12/07/18 at 11:00; Stop 12/07/18 at 11:44; Status DC Active Scripts Active Humalog (Insulin Lispro) 100 Unit/1 Ml Insuln.pen 10 Units SQ TIDWMEALS 30 Days Dispense BD fine pen needles 4mm 31g #100 for QID dosing Lantus Solostar (Insulin Glargine,Hum.rec.anlog) 100 Unit/1 Ml Insuln.pen 40 Unit SQ DAILYAC 30 Days Dispense pen needles BD FINE 4mm 31g #100 per month or nearest affordable length/diameter Reported Valium (Diazepam) 5 Mg Tablet 5 Mg PO TID Seroquel (Quetiapine Fumarate) 100 Mg Tablet 1 Tab PO QHS Ferrous Sulfate 325 Mg Tablet 325 Mg PO BID Vitals/I & O Vital Sign - Last 24 Hours 12/07/18 12/07/18 12/07/18 12/07/18 11:00 12:06 15:00 17:05 Temp 97.9 96.6 97.9 96.6 Pulse 106 99 Resp 18 18 18 16 B/P (MAP) 116/72 (87) 99/67 (78) Pulse Ox 92 92 O2 Delivery Room Air Room Air Room Air Room Air 12/07/18 12/07/18 12/07/18 12/07/18 19:00 20:00 21:44 23:00 Temp 97.1 97.0 97.1 97.0 Pulse 100 102 Resp 16 18 18 B/P (MAP) 116/70 (85) 96/70 (79) Pulse Ox 93 93 O2 Delivery Room Air Room Air Room Air Room Air 12/08/18 12/08/18 12/08/18 12/08/18 01:45 02:52 03:00 07:00 Temp 97.7 97.5 97.7 97.5 Pulse 101 104 Resp 18 18 16 14 B/P (MAP) 120/75 (90) 113/71 (85) Pulse Ox 92 94 O2 Delivery Room Air Room Air Room Air Room Air Intake and Output 12/07/18 12/07/18 12/08/18 15:00 23:00 07:00 Intake Total 650 ml 460 ml 660 ml Balance 650 ml 460 ml 660 ml HIRAL EATON MD December 08, 2018 08:42
[2018-12-08] MEDS: diazePAM 5 MG TABLET PO SCH (10:24)
[2018-12-08] MEDS: INSULIN GLARGINE 300 UNITS/3 ML INSULN.PEN. SQ SCH (10:26)
--- NOTE | 2018-12-08 10:38 | PDOC3 ---
Discharge Summary Visit Information Date of Admission: December 07, 2018 Date of Discharge: December 08, 2018 Admitting Diagnosis Comment: VRE UTI based on urine cultures 12/01/18 - dw micro NO UTI CURRENTLY - doing good off abx HONK POA, resolved Obesity BMI 32 Multiple drug allergies Anxiety NOS Final Diagnosis Problems Medical Problems: (1) Hyperglycemia due to type 1 diabetes mellitus Status: Acute (2) VRE (vancomycin resistant enterococcus) culture positive Status: Acute Brief Hospital Course Allergies Allergies Coded Allergies Type Severity Reaction Last Updated Verified Penicillins Allergy Severe ANAPHYLAXIS, cefepime ok 11/12/16 Yes doxycycline Allergy Intermediate 11/12/16 Yes fentanyl Allergy Intermediate 11/12/16 Yes I S O L A T I O N *CONTACT* Allergy Unknown 11/03/18 Yes cefepime Adverse Reaction Intermediate "makes her feel sick" 11/03/18 Yes hydrocodone Adverse Reaction Intermediate itching 11/12/16 Yes Vital Signs Vital Signs Date Time Temp Pulse Resp B/P (MAP) Pulse Ox O2 Delivery O2 Flow Rate FiO2 12/08/18 08:00 Room Air 12/08/18 07:00 97.5 104 14 113/71 (85) 94 97.5 Lab Results Laboratory Tests Test 12/06/18 22:39 12/06/18 23:00 12/06/18 23:24 12/06/18 23:28 Glucose (Fingerstick) 532 mg/dL (70-99) White Blood Count 3.8 x10^3/uL (4.0-11.0) Red Blood Count 4.46 x10^6/uL (3.50-5.40) Hemoglobin 10.3 g/dL (12.0-15.5) Hematocrit 33.1 % (36.0-47.0) Mean Corpuscular Volume 74 fL (79-100) Mean Corpuscular Hemoglobin 23 pg (25-35) Mean Corpuscular Hemoglobin Concent 31 g/dL (31-37) Red Cell Distribution Width 17.1 % (11.5-14.5) Platelet Count 209 x10^3/uL (140-400) Neutrophils (%) (Auto) 53 % (31-73) Lymphocytes (%) (Auto) 37 % (24-48) Monocytes (%) (Auto) 9 % (0-9) Eosinophils (%) (Auto) 1 % (0-3) Basophils (%) (Auto) 1 % (0-3) Neutrophils # (Auto) 2.0 x10^3uL (1.8-7.7) Lymphocytes # (Auto) 1.4 x10^3/uL (1.0-4.8) Monocytes # (Auto) 0.3 x10^3/uL (0.0-1.1) Eosinophils # (Auto) 0.0 x10^3/uL (0.0-0.7) Basophils # (Auto) 0.0 x10^3/uL (0.0-0.2) Sodium Level 128 mmol/L (136-145) Potassium Level 4.5 mmol/L (3.5-5.1) Chloride Level 95 mmol/L (98-107) Carbon Dioxide Level 27 mmol/L (21-32) Anion Gap 6 (6-14) Blood Urea Nitrogen 6 mg/dL (7-20) Creatinine 0.8 mg/dL (0.6-1.0) Estimated GFR (Cockcroft-Gault) 84.8 BUN/Creatinine Ratio 8 (6-20) Glucose Level 579 mg/dL (70-99) Lactic Acid Level 2.4 mmol/L (0.4-2.0) Calcium Level 9.0 mg/dL (8.5-10.1) Magnesium Level 1.6 mg/dL (1.8-2.4) Total Bilirubin 0.3 mg/dL (0.2-1.0) Aspartate Amino Transf (AST/SGOT) 24 U/L (15-37) Alanine Aminotransferase (ALT/SGPT) 24 U/L (14-59) Alkaline Phosphatase 534 U/L (46-116) Total Protein 7.3 g/dL (6.4-8.2) Albumin 2.7 g/dL (3.4-5.0) Albumin/Globulin Ratio 0.6 (1.0-1.7) Acetone Level Neg (NEG) Urine Collection Type Unknown Urine Color Yellow Urine Clarity Clear Urine pH 7.0 Urine Specific [place] 1.025 Urine Protein Negative mg/dL (NEG-TRACE) Urine Glucose (UA) >=1000 mg/dL (NEG) Urine Ketones (Stick) Negative mg/dL (NEG) Urine Blood Negative (NEG) Urine Nitrite Negative (NEG) Urine Bilirubin Negative (NEG) Urine Urobilinogen Dipstick 0.2 mg/dL (0.2 mg/dL) Urine Leukocyte Esterase Negative (NEG) Urine RBC 3-5 /HPF (0-2) Urine WBC 5-10 /HPF (0-4) Urine Squamous Epithelial Cells Mod /LPF Urine Bacteria 0 /HPF (0-FEW) Bedside Urine HCG, Qualitative Hcg negative (Negative) Test 12/07/18 03:09 12/07/18 04:30 12/07/18 08:16 12/07/18 09:45 Glucose (Fingerstick) 431 mg/dL (70-99) 324 mg/dL (70-99) 221 mg/dL (70-99) Erythrocyte Sedimentation Rate 40 (0-25) Lactic Acid Level 2.0 mmol/L (0.4-2.0) Test 12/07/18 11:06 12/07/18 16:43 12/07/18 20:03 12/08/18 08:19 Glucose (Fingerstick) 201 mg/dL (70-99) 74 mg/dL (70-99) 148 mg/dL (70-99) 135 mg/dL (70-99) Laboratory Tests Test 12/07/18 11:06 12/07/18 16:43 12/07/18 20:03 12/08/18 08:19 Glucose (Fingerstick) 201 mg/dL (70-99) 74 mg/dL (70-99) 148 mg/dL (70-99) 135 mg/dL (70-99) Brief Hospital Course Ms. Smith is a 27 old freq flier for VRE UTI and HON Maria Fernanda admitted for the same. Urine culture from ER 12/01 was VRE almost resistant to all. Previously sensitive to Cipro and Bactrim. Repeat UA this time was negative. Comanage with ID. Recommended to be off antibiotics and no fever no white count off Zyvox. Home today with no antibiotic. She requested tramadol refills HON Maria Fernanda resolved with home regimen that I have resumed and she does not need any refills when I asked her consults: ID Proc; none 2 notes today Discharge Information Condition at Discharge: Improved, Stable Disposition/Orders: D/C to Home Scheduled Diazepam (Valium) 5 Mg Tablet, 5 MG PO TID for anxiety, (Reported) Entered as Reported by: GIA PETER RN on 12/07/18 0152 Last Action: Continued on 12/07/18846 by HIRAL EATON Ferrous Sulfate (Ferrous Sulfate) 325 Mg Tablet, 325 MG PO BID for iron supplement, (Reported) Entered as Reported by: ZACH RANDALL on 10/26/171922 Last Action: Continued on 12/07/18846 by HIRAL EATON Insulin Glargine,Hum.rec.anlog (Lantus Solostar) 100 Unit/1 Ml Insuln.pen, 40 UNIT SQ DAILYAC for antidiabetic for 30 Days, #1 Ref 2 Dispense pen needles BD FINE 4mm 31g #100 per month or nearest affordable length/diameter Prescribed by: JEFFERSON FAULKNER MD on 11/05/18 103 Last Action: Continued on 12/07/18846 by HIRAL EATON Insulin Lispro (Humalog) 100 Unit/1 Ml Insuln.pen, 10 UNITS SQ TIDWMEALS for DM1 for 30 Days, #1 Ref 2 Dispense BD fine pen needles 4mm 31g #100 for QID dosing Prescribed by: JEFFERSON FAULKNER MD on 11/05/18 1033 Last Action: Continued on 12/07/18846 by HIRAL EATON Quetiapine Fumarate (Seroquel) 100 Mg Tablet, 1 TAB PO QHS for mental health, #30 Ref 1 (Reported) Entered as Reported by: Brigitte Stanley on 12/21/17 0529 Last Action: Converted on 12/07/18846 by HIRAL LOVETT MD December 08, 2018 10:38
[2018-12-08 11:00] VITALS: BP 111/59
--- NOTE | 2018-12-08 11:01 | PDOC ---
Infectious Disease Note Subjective: Subjective Pt says feels better some nausea no vomiting ROS: ROS Negative except for above. Vital Signs: Vital Signs Vital Signs Date Time Temp Pulse Resp B/P (MAP) Pulse Ox O2 Delivery O2 Flow Rate FiO2 12/08/18 08:00 Room Air 12/08/18 07:00 97.5 104 14 113/71 (85) 94 97.5 Physical Exam: PHYSICAL EXAM GENERAL: Alert and oriented x 3 female in no acute distress. HEENT: Normocephalic, atraumatic. NECK: Supple. No JVD. LUNGS: Clear. HEART: S1, S2. ABDOMEN: Soft, benign. EXTREMITIES: No edema, no cyanosis. Multiple tattoos. DERMATOLOGIC: Warm had no generalized rash. NEUROLOGIC: Alert and oriented x 3. Grossly nonfocal. Medications: Inpatient Meds: Current Medications Medications (Trade) Dose Ordered Sig/Naya Start Time Stop Time Status Last Admin Dose Admin Acetaminophen (Tylenol) 650 mg PRN Q4HRS PRN 12/06/18 23:00 12/07/18 22:59 DC 12/06/18 23:59 650 MG Alprazolam (Xanax) 0.5 mg PRN Q8HRS PRN 12/07/18 10:00 Dextrose (Dextrose 50%-Water Syringe) 12.5 gm PRN Q15MIN PRN 12/07/18 09:00 Diazepam (Valium) 5 mg TID 12/07/18 10:00 12/08/18 10:24 5 MG Ferrous Sulfate (Feosol) 325 mg BIDWMEALS 12/07/18 10:00 12/07/18 17:04 325 MG Insulin Glargine (Lantus) 80 units BID 12/07/18 21:00 12/08/18 10:26 80 UNITS Insulin Human Lispro (HumaLOG) 20 units TIDWMEALS 12/07/18 12:00 Insulin Human Regular (HumuLIN R VIAL) 14 unit 1X ONCE 12/06/18 22:45 12/06/18 22:50 DC 12/06/18 23:14 14 UNIT Ketorolac Tromethamine (Toradol 15mg Vial) 15 mg PRN Q6HRS PRN 12/07/18 09:00 12/12/18 08:59 12/07/18 13:28 15 MG Linezolid/Dextrose 300 ml @ 300 mls/hr Q12HR 12/07/18 11:00 12/07/18 11:44 DC 12/07/18 11:19 300 MLS/HR Morphine Sulfate (Morphine Sulfate) 4 mg PRN Q4HRS PRN 12/06/18 23:15 12/07/18 07:50 DC 12/07/18 07:50 4 MG Ondansetron HCl (Zofran) 4 mg PRN Q6HRS PRN 12/06/18 23:15 12/07/18 07:49 4 MG Oxycodone/ Acetaminophen (Percocet 5/325) 1 tab PRN Q4HRS PRN 12/07/18 09:00 12/08/18 07:51 1 TAB Quetiapine Fumarate (SEROquel) 100 mg QHS 12/07/18 21:00 12/07/18 20:52 100 MG Sodium Chloride 1,000 ml @ 1,000 mls/hr 1X ONCE 12/06/18 22:45 12/06/18 23:44 DC 12/06/18 23:04 1,000 MLS/HR Labs: Lab Laboratory Tests Test 12/07/18 11:06 12/07/18 16:43 12/07/18 20:03 12/08/18 08:19 Glucose (Fingerstick) 201 mg/dL (70-99) 74 mg/dL (70-99) 148 mg/dL (70-99) 135 mg/dL (70-99) Micro UC 50-100K VRE 5/2; UA neg for infection 12/06 UA noted Objective: Assessment: Leucopenia Pyuria Leuc neg, Nitrite neg VRE UC 5/2 likely contaminant Poorly controlled DM Noncomplaince Multiple hosp in the past Urinary retention "Cyclic vomiting syndrome Plan: Plan of Care observe off antibiotics Ok to dc from id standpoint Pt has numerous hosp here and osh D/W LINDA COMBS MD December 08, 2018 11:01
[2018-12-08] MEDS ORDERED: HEPARIN PF 500 UNIT/5 ML DISP.SYRIN. IV ONE (12:45)
[2018-12-08 15:00] VITALS: BP 96/62
--- NOTE | 2018-12-08 15:26 | NUR ---
Discharge Note: SAMANTHA DOWD Discharge instructions and discharge home medications reviewed with Patient and a copy given. All questions have been answered and understanding verbalized. The following instructions and handouts were given: diabetic diet, reviewed medications, follow-up instructions Discontinued lines and drains: right chest port deaccessed without difficulty. Patient discharged to home with significant other via cab
== END 2018-12-08 15:31 | disposition home or self-care (01) | DRG 638 ==
LOC: ER 22:27 → 5 NORTH 22:55
PROVIDERS: ADMIT Family Medicine; ATTEND Family Medicine
DX: E10.65 Type 1 diabetes mellitus with hyperglycemia (principal); N39.0 Urinary tract infection, site not specified; E87.2 Acidosis; E10.69 Type 1 diabetes mellitus with other specified complication; F41.9 Anxiety disorder, unspecified; G43.A0 Cyclical vomiting, in migraine, not intractable; Z16.21 Resistance to vancomycin; E66.9 Obesity, unspecified; I10 Essential (primary) hypertension; D72.819 Decreased white blood cell count, unspecified; Z86.718 Personal history of other venous thrombosis and embolism; Z88.1 Allergy status to other antibiotic agents; Z88.5 Allergy status to narcotic agent; Z88.0 Allergy status to penicillin; Z88.8 Allergy status to other drugs, medicaments and biological substances; Z90.49 Acquired absence of other specified parts of digestive tract; Z82.49 Family history of ischemic heart disease and other diseases of the circulatory system; Z68.32 Body mass index [BMI] 32.0-32.9, adult; Z88.9 Allergy status to unspecified drugs, medicaments and biological substances; Z91.19 Patient's noncompliance with other medical treatment and regimen; Z79.4 Long term (current) use of insulin
CPT/HCPCS: 36415; 80053; 81001; 81025; 82010; 82962; 83605; 83735; 83930; 85025; 85651; 87040; 87086; 96361; 96365; 96372; J1815; J1885; J2020; J2270; J2405; J7030; 99285-25

== ENCOUNTER 2019-02-12 23:03 | Inpatient (IN) | payer SELFPAY ==
[~2019-02-12] VITALS: Ht 170.2 cm; Wt 93.4 kg
[~2019-02-12 23:03] MED LIST changes: +ONDA4TAB12 PO
[2019-02-13] VITALS (18 sets, daily range): BP systolic 106–148; BP diastolic 57–93
--- NOTE | 2019-02-13 00:53 | PHYS DOC ---
Past Medical History Past Medical History: Anemia, Anxiety, Diabetes-Type I, DVT, Ovarian Cyst Additional Past Medical Histor: VENTRAL HERNIA, L leg clot Past Surgical History: Other Additional Past Surgical Histo: R fallopian, L ovary cyst removed,HERNIA REPAIR, I&D L ARM, left thumb amp Alcohol Use: None Drug Use: None Adult General Chief Complaint Chief Complaint: MULTIPLE COMPLAINTS HPI HPI Patient is a 28 year old [female] who presents with [pain at the site of her recently removed chest port (s/p 2 months)]. Pt reports that pain started when she was admitted here at [facility] 2 weeks ago and has not improved at all. She states the pain is an 8.5/10 and is located on the right at midclavicular line around T2-4. She states her site of port removal feels "full," and the skin feels hard and hot. She had said site checked via ultrasound on (02/09) at [facility] and was told she had "fluid and blood" in the site where she had a chest port and that she may need to get an "I&D." She admits to chilling, bifrontal headache, nausea and coffee ground- looking emesis. Review of Systems Review of Systems Constitutional: Denies fever [Admits chills] Eyes: Denies change in visual acuity, redness, or eye pain HENT: Denies nasal congestion or sore throat Respiratory: Denies cough or shortness of breath Cardiovascular: No additional information not addressed in HPI GI: Denies abdominal pain, bloody stools or diarrhea [Admits to nausea and vomiting, with coffee-ground appearance of vomit] : Denies dysuria or hematuria Musculoskeletal: Denies back pain or joint pain Integument: [Admits to skin lesion and "hardness" on the right side of her chest at the site of where her chest port used to be. ] Neurologic: Denies focal weakness or sensory changes [Admits headache] All other systems were reviewed and found to be within normal limits, except as documented in this note. Current Medications Current Medications Current Medications Medications (Trade) Dose Ordered Sig/Naya Start Time Stop Time Status Last Admin Dose Admin Insulin Human Regular 150 ml @ 0 mls/hr 1X ONCE 02/13/19 02:00 02/13/19 02:01 DC Morphine Sulfate (Morphine Sulfate) 4 mg 1X ONCE 02/13/19 01:15 02/13/19 01:16 DC 02/13/19 01:21 4 MG Ondansetron HCl (Zofran) 4 mg 1X ONCE 02/13/19 01:15 02/13/19 01:16 DC 02/13/19 01:21 4 MG Sodium Chloride 1,000 ml @ 75 mls/hr [id number] 02/13/19 02:00 02/14/19 01:59 Allergies Allergies Allergies Coded Allergies Type Severity Reaction Last Updated Verified Penicillins Allergy Severe ANAPHYLAXIS 01/24/19 Yes doxycycline Allergy Intermediate 11/12/16 Yes fentanyl Allergy Intermediate 11/12/16 Yes I S O L A T I O N *CONTACT* Allergy Unknown 11/03/18 Yes cefepime Adverse Reaction Intermediate "makes her feel sick" 11/03/18 Yes hydrocodone Adverse Reaction Intermediate itching 11/12/16 Yes Physical Exam Physical Exam Constitutional: acute distress, toxic appearance. HENT: Normocephalic, atraumatic, bilateral external ears normal, oropharynx moist, no oral exudates, nose normal. Poor dentition, erosion noted on left upper incisor. Eyes: PERRLA, EOMI, conjunctiva normal, no discharge. Neck: Normal range of motion, no tenderness, supple, no stridor. Cardiovascular:Heart rate regular rhythm, no murmur Lungs & Thorax: Bilateral breath sounds clear to auscultation Abdomen: Bowel sounds normal, soft, no masses, no pulsatile masses. [TTP in RUQ PT STATES THAT IS UNCHANGED] Skin: Warm, dry, no erythema, no rash. [No Erythema noted at site of chest port removal and patients pain. Indurated region about 4cm in diameter was felt on palpation consistent with fluid retention but no overt signs of infection noted on visual inspection.] Back: No tenderness, no CVA tenderness. Extremities: No tenderness, no cyanosis, no clubbing, ROM intact, no edema. Neurologic: Alert and oriented X 3, normal motor function, normal sensory function, no focal deficits noted. Psychologic: Affect normal, judgement normal, mood normal. Current Patient Data Vital Signs Vital Signs Date Time Temp Pulse Resp B/P (MAP) Pulse Ox O2 Delivery O2 Flow Rate FiO2 02/13/19 01:21 20 Room Air 7/14/19 23:48 98.2 117 123/67 (85) 97 98.2 Lab Values Laboratory Tests Test 02/12/19 23:37 02/13/19 00:01 02/13/19 00:40 02/13/19 00:59 POC Urine HCG, Qualitative Hcg negative (Negative) Urine Collection Type Unknown Urine Color Yellow Urine Clarity Clear Urine pH 6.0 Urine Specific [place] 1.025 Urine Protein Negative mg/dL (NEG-TRACE) Urine Glucose (UA) >=1000 mg/dL (NEG) Urine Ketones (Stick) Negative mg/dL (NEG) Urine Blood Trace (NEG) Urine Nitrite Negative (NEG) Urine Bilirubin Negative (NEG) Urine Urobilinogen Dipstick 0.2 mg/dL (0.2 mg/dL) Urine Leukocyte Esterase Negative (NEG) Urine RBC Occ /HPF (0-2) Urine WBC Occ /HPF (0-4) Urine Squamous Epithelial Cells Mod /LPF Urine Bacteria Moderate /HPF (0-FEW) Urine Mucus Slight /LPF Urine Yeast Present /HPF Urine Opiates Screen Neg (NEG) Urine Methadone Screen Neg (NEG) Urine Barbiturates Neg (NEG) Urine Phencyclidine Screen Neg (NEG) Urine Amphetamine/Methamphetamine Neg (NEG) Urine Benzodiazepines Screen Neg (NEG) Urine Cocaine Screen Neg (NEG) Urine Cannabinoids Screen Neg (NEG) Urine Ethyl Alcohol Neg (NEG) White Blood Count 4.9 x10^3/uL (4.0-11.0) Red Blood Count 4.65 x10^6/uL (3.50-5.40) Hemoglobin 10.9 g/dL (12.0-15.5) L Hematocrit 33.8 % (36.0-47.0) L Mean Corpuscular Volume 73 fL (79-100) L Mean Corpuscular Hemoglobin 23 pg (25-35) L Mean Corpuscular Hemoglobin Concent 32 g/dL (31-37) Red Cell Distribution Width 17.2 % (11.5-14.5) H Platelet Count 237 x10^3/uL (140-400) Neutrophils (%) (Auto) 56 % (31-73) Lymphocytes (%) (Auto) 35 % (24-48) Monocytes (%) (Auto) 8 % (0-9) Eosinophils (%) (Auto) 1 % (0-3) Basophils (%) (Auto) 0 % (0-3) Neutrophils # (Auto) 2.7 x10^3/uL (1.8-7.7) Lymphocytes # (Auto) 1.7 x10^3/uL (1.0-4.8) Monocytes # (Auto) 0.4 x10^3/uL (0.0-1.1) Eosinophils # (Auto) 0.0 x10^3/uL (0.0-0.7) Basophils # (Auto) 0.0 x10^3/uL (0.0-0.2) Prothrombin Time 13.1 SEC (11.7-14.0) Prothrombin Time INR 1.0 (0.8-1.1) Sodium Level 126 mmol/L (136-145) L Potassium Level 4.4 mmol/L (3.5-5.1) Chloride Level 92 mmol/L (98-107) L Carbon Dioxide Level 19 mmol/L (21-32) L Anion Gap 15 (6-14) H Blood Urea Nitrogen 9 mg/dL (7-20) Creatinine 0.9 mg/dL (0.6-1.0) Estimated GFR (Cockcroft-Gault) 73.5 BUN/Creatinine Ratio 10 (6-20) Glucose Level 608 mg/dL (70-99) *H Calcium Level 9.3 mg/dL (8.5-10.1) Magnesium Level 1.9 mg/dL (1.8-2.4) Total Bilirubin 0.3 mg/dL (0.2-1.0) Aspartate Amino Transferase (AST) 27 U/L (15-37) Alanine Aminotransferase (ALT) 44 U/L (14-59) Alkaline Phosphatase 398 U/L (46-116) H Troponin I Quantitative < 0.017 ng/mL (0.000-0.055) Total Protein 8.5 g/dL (6.4-8.2) H Albumin 3.7 g/dL (3.4-5.0) Albumin/Globulin Ratio 0.8 (1.0-1.7) L Lipase 194 U/L (73-393) Ethyl Alcohol Level < 10 mg/dL (0-10) Glucose (Fingerstick) 560 mg/dL (70-99) *H Laboratory Tests 02/13/19 00:40 Laboratory Tests 02/13/19 00:40 EKG EKG []SINUS TACH RATE 123 QTC 516 Radiology/Procedures Radiology/Procedures [] Impressions: CXR NEGATIVE ACUTE. Course & Med Decision Making Course & Med Decision Making Pertinent Labs and Imaging studies reviewed. (See chart for details) [Pt is a 28 yo female presenting with right sided chest pain at the site of where her chest port was (s/p 2 months chest port removal). The pain is rated an 8.5/10. She states this is the same pain, but worse, that she has had for the past 2 weeks. Pt states she was told at [facility] that she had "fluid and blood" in this site and she "may have to get an I&D" to treat it. On physical exam there is aN AREA OF mild fluctuance region at the site of her pain consistent with fluid collection and there is no surrounding erythema or red streaking visualized on inspection. POC Fingerstick glucose was 560, possible mild dka with anion gap acidosis, abg pending. will admit to hospitalist service for insulin drip to icu for regulation of brittle diabetes likely seroma in upper chest wet read u/s 4 by 2.6 by 1 cm, simlar to prior read end of december, no overt signs of cellulitis noted.] Dragon Disclaimer Dragon Disclaimer This electronic medical record was generated, in whole or in part, using a voice recognition dictation system. Departure Departure Impression: Primary Impression: High anion gap metabolic acidosis Additional Impressions: Hyponatremia Hyperglycemia Disposition: ADMITTED INPATIENT Admitting Physician: HIMS Condition: STABLE Referrals: NO PCP (PCP) Problem Qualifiers TEREZA MARIE MD Feb 13, 2019 00:53
[2019-02-13] MEDS ORDERED: IV NORMAL SALINE 1000ML BAG 1,000 ML IV ONE (01:15)
[2019-02-13] MEDS ORDERED: ONDANSETRON PF 4 MG/2 ML VIAL. IV ONE (01:15)
[2019-02-13] MEDS ORDERED: MORPHINE SULFATE 4 MG/ML VIAL. IV ONE (01:15)
[2019-02-13 01:19] LABS: BASO % 0 % (0-3); EOS % 1 % (0-3); HEMATOCRIT 33.8 % (36.0-47.0); HEMOGLOBIN 10.9 g/dL (12.0-15.5); LYMPH # 1.7 x10^3/uL (1.0-4.8); LYMPH % 35 % (24-48); MEAN CORPUSCULAR HEMOGLOBIN 23 pg (25-35); MEAN CORPUSCULAR HGB CONC 32 g/dL (31-37); MEAN CORPUSCULAR VOLUME 73 fL (79-100); MONO # 0.4 x10^3/uL (0.0-1.1); MONO % 8 % (0-9); NEUT # 2.7 x10^3/uL (1.8-7.7); NEUT % 56 % (31-73); PLATELET COUNT 237 x10^3/uL (140-400); RED BLOOD COUNT 4.65 x10^6/uL (3.50-5.40); RED CELL DISTRIBUTION WIDTH 17.2 % (11.5-14.5); WHITE BLOOD COUNT 4.9 x10^3/uL (4.0-11.0)
[2019-02-13 01:24] LABS: BILIRUBIN,URINE NEGATIVE (NEG); CLARITY,URINE CLEAR; COLOR,URINE YELLOW; NITRITE,URINE NEGATIVE (NEG); PROTEIN,URINE NEGATIVE (NEG-TRACE); UROBILINOGEN,URINE 0.2 mg/dL (0.2 mg/dL)
[2019-02-13 01:35] LABS: PROTHROMBIN TIME PATIENT 13.1 SEC (11.7-14.0)
[2019-02-13 01:41] LABS: BACTERIA,URINE MODERATE /HPF (0-FEW); RBC,URINE OCC /HPF (0-2); SQUAMOUS EPITHELIAL CELL,UR MOD /LPF; WBC,URINE OCC /HPF (0-4); YEAST,URINE PRESENT /HPF
[2019-02-13 01:43] LABS: BARBITURATES NEG (NEG); BENZODIAZEPINES NEG (NEG); CANNABINOIDS NEG (NEG); COCAINE NEG (NEG); METHADONE NEG (NEG); OPIATES NEG (NEG); PHENCYCLIDINE NEG (NEG)
[2019-02-13 01:43] LABS: ALBUMIN 3.7 g/dL (3.4-5.0); ALBUMIN/GLOBULIN RATIO 0.8 (1.0-1.7); CALCIUM 9.3 mg/dL (8.5-10.1); CREATININE 0.9 mg/dL (0.6-1.0); GFR 73.5; MAGNESIUM 1.9 mg/dL (1.8-2.4); POTASSIUM 4.4 mmol/L (3.5-5.1); TOTAL BILIRUBIN 0.3 mg/dL (0.2-1.0); TOTAL PROTEIN 8.5 g/dL (6.4-8.2)
[2019-02-13 01:46] LABS: AMPHETAMINE/METHAMPHETAMINE NEG (NEG)
[2019-02-13] MEDS ORDERED: INSULIN,REGULAR 150 UNIT DRIP 150 ML IV ONE (02:00)
--- NOTE | 2019-02-13 02:17 | RAD ---
Ultrasound of the right chest wall 02/11/2019 CLINICAL HISTORY: Swelling in the right chest wall the region of a Port-A-Cath catheter. TECHNIQUE: A real-time ultrasound examination of the right chest wall in the area the patient's swelling was performed. Multiple images were obtained. FINDINGS: Comparison study is dated 01/27/2019. A complex fluid collection is seen within the subcutaneous fat within the right chest wall which measures 4 cm in greatest diameter. The fluid component has decreased in size since the previous examination. Reportedly it was recently drained. Its ultrasound appearance is consistent most likely with a seroma. IMPRESSION: 4 cm complex fluid collection is seen within the right chest wall. The fluid component has decreased since the previous examination. This felt to most likely represent a seroma. Electronically signed by: Redd Rosario MD (02/13/2019 2:14 AM) [facility]
--- NOTE | 2019-02-13 03:00 | NUR ---
ARRIVED TO ICU ROOM 105 FROM ED. REPORT RECEIVED FORM DAVID FREEMAN. INSULIN DRIP NOT INFUSING. NS INFUSING WIDE OPEN. ORDERED INSULIN DRIP FROM PHARMACY. NO BLOOD GASES DRAWN. AWAKE AND ANSWERS QUESTIONS APPROPRIATELY. ASSISTED TO BED. NO ORDERS AT THIS TIME. WILL CONTINUE TO MONITOR.
[2019-02-13] MEDS: IV NORMAL SALINE 1000ML BAG 1,000 ML IV SCH ×2 (03:54→15:22)
[2019-02-13 05:01] LABS: CALCIUM 8.9 mg/dL (8.5-10.1); CREATININE 0.8 mg/dL (0.6-1.0); GFR 84.2; MAGNESIUM 1.7 mg/dL (1.8-2.4); PHOSPHORUS 2.8 mg/dL (2.6-4.7); POTASSIUM 3.8 mmol/L (3.5-5.1)
--- NOTE | 2019-02-13 05:45 | RAD ---
AP portable chest radiograph 02/13/2019 Clinical History: Diabetic ketoacidosis. An AP erect portable digital radiograph of the chest was obtained. Comparison study is dated 01/24/2019. The cardiac and mediastinal silhouettes are within normal limits in size and configuration. No acute pulmonary infiltrate is seen. No pleural effusion or pneumothorax is noted. The osseous structures are unchanged. Impression: No acute abnormality is seen. Electronically signed by: Redd Rosario MD (02/13/2019 5:42 AM) [facility]
--- NOTE | 2019-02-13 06:10 | EKG ---
[facility] [address] [place] [address] Test Date: 2019-02-13 Test Time: 01:20:16 Pat Name: SAMANTHA DOWD Department: Room: Gender: [employer]: : [id number] Requested By: TEREZA MARIE Order Number: [id number] Reading MD: Measurements Intervals [place] Rate: 123 P: 20 AL: 126 QRS: 150 QRSD: 76 T: 30 QT: 356 QTc: 516 Interpretive Statements SINUS TACHYCARDIA LEFT ATRIAL ABNORMALITY ABNORMAL RIGHT AXIS DEVIATION R-S TRANSITION ZONE IN V LEADS DISPLACED TO THE LEFT CONSIDER RIGHT VENTRICULAR HYPERTROPHY ABNORMAL ECG RI6.01 No previous ECG available for comparison
[2019-02-13] MEDS ORDERED: INSULIN GLARGINE 300 UNITS/3 ML INSULN.PEN. SQ ONE ×2 (06:30→11:00)
[2019-02-13] MEDS ORDERED: DEXTROSE 50% 25 GM / 50ML DISP.SYRIN. IV PRN (06:30)
[2019-02-13] MEDS ORDERED: INSULIN GLARGINE 300 UNITS/3 ML INSULN.PEN. SQ SCH (08:00)
[2019-02-13] MEDS: INSULIN LISPRO 300 UNITS/3 ML INSULN.PEN. SQ SCH ×5 (08:29→17:00)
[2019-02-13] MEDS: LIDOCAINE (700MG/PATCH) PATCH. TD SCH (08:30)
--- NOTE | 2019-02-13 09:23 | NUR ---
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 Pt to be in contact precautions until there are 2 negative urine cultures 7 days apart without antibiotics.
--- NOTE | 2019-02-13 10:06 | PDOC1 ---
History and Physical Date of Admission Date of Admission DATE: 02/13/19 TIME: 10:06 Identification/Chief Complaint Chief Complaint SEEN IN ER , 28 year old [female] who presented with [pain at the site of her recently removed chest port (s/p 2 months)]. Pt reports that pain started when she was admitted here at [facility] 2 weeks ago and has not improved at all. She states the pain is an 8.5/10 and is located on the right at midclavicular line around T2-4. She states her site of port removal feels "full," and the skin feels hard and hot. She had said site checked via ultrasound on (02/09) at [facility] and was told she had "fluid and blood" in the site where she had a chest port and that she may need to get an "I&D." She admits to chilling, bifrontal headache, nausea and coffee ground-looking emesis. GLUCOSE HIGH//// CO2= 20 IN ER Past Medical History Past Medical History Past Medical History Past Medical History: Anemia, Anxiety, Diabetes-Type I, DVT, Ovarian Cyst Additional Past Medical Histor: VENTRAL HERNIA, L leg clot Past Surgical History: Other Additional Past Surgical Histo: R fallopian, L ovary cyst removed,HERNIA REPAIR, I&D L ARM, left thumb amp Alcohol Use: None Drug Use: None Cardiovascular: HTN Pulmonary: Bronchitis Psych: Anxiety Rheumatologic: No pertinent hx Endocrine: Diabetes, Other Past Surgical History Past Surgical History: Appendectomy, Cholecystectomy, , Hernia Repair, Other Family History Family History: Hypertension, Other Family History: Parent Social History Smoke: <1 pack per day ALCOHOL: none Drugs: None Current Problem List Problem List Problems Medical Problems: (1) High anion gap metabolic acidosis Status: Acute (2) Hyperglycemia Status: Acute (3) Hyponatremia Status: Acute Current Medications Current Medications Current Medications Sodium Chloride 1,000 ml @ 1,000 mls/hr 1X ONCE IV Last administered on 02/13/19at 01:21; Start 02/13/19 at 01:15; Stop 02/13/19 at 02:14; Status DC Ondansetron HCl (Zofran) 4 mg 1X ONCE IV Last administered on 02/13/19at 01:21; Start 02/13/19 at 01:15; Stop 02/13/19 at 01:16; Status DC Morphine Sulfate (Morphine Sulfate) 4 mg 1X ONCE IV Last administered on 02/13/19at 01:21; Start 02/13/19 at 01:15; Stop 02/13/19 at 01:16; Status DC Insulin Human Regular 150 ml @ 0 mls/hr 1X ONCE IV Last administered on 02/13/19at 02:40; Start 02/13/19 at 02:00; Stop 02/13/19 at 02:01; Status DC Sodium Chloride 1,000 ml @ 75 mls/hr [id number] IV Last administered on 02/13/19at 03:54; Start 02/13/19 at 02:00; Stop 02/14/19 at 01:59 Insulin Glargine (Lantus) 5 units TIDWMEALS SQ ; Start 02/13/19 at 08:00 Insulin Glargine (Lantus) 40 units 1X ONCE SQ Last administered on 02/13/19at 07:17; Start 02/13/19 at 06:30; Stop 02/13/19 at 06:39; Status DC Insulin Human Lispro (HumaLOG) 0-9 UNITS TIDWMEALS SQ Last administered on 02/13/19at 08:29; Start 02/13/19 at 08:00 Dextrose (Dextrose 50%-Water Syringe) 12.5 gm PRN Q15MIN PRN IV SEE COMMENTS; Start 02/13/19 at 06:30 Lidocaine (Lidoderm) 1 patch DAILY TD Last administered on 02/13/19at 08:30; Start 02/13/19 at 09:00 Miscellaneous (Lidoderm Patch Removal) 1 ea [facility] ; Start 02/13/19 at 21:00 Active Scripts Active Humalog (Insulin Lispro) 100 Unit/1 Ml Insuln.pen 25 Units SQ TIDWMEALS 30 Days Ondansetron Odt (Ondansetron) 4 Mg Tab.rapdis 4 Mg PO PRN Q6HRS PRN 10 Days Culturelle (Lactobacillus Rhamnosus Gg) 1 Each Cap.sprink 1 Cap PO BID 28 Days Lantus Solostar (Insulin Glargine,Hum.rec.anlog) 100 Unit/1 Ml Insuln.pen 80 Units SQ BID 30 Days Reported Valium (Diazepam) 5 Mg Tablet 5 Mg PO QID Seroquel (Quetiapine Fumarate) 100 Mg Tablet 1 Tab PO QHS Ferrous Sulfate 325 Mg Tablet 325 Mg PO BID Allergies Allergies: Coded Allergies: Penicillins (Verified Allergy, Severe, ANAPHYLAXIS, 01/24/19) doxycycline (Verified Allergy, Intermediate, 11/12/16) fentanyl (Verified Allergy, Intermediate, 11/12/16) I S O L A T I O N *CONTACT* (Verified Allergy, Unknown, 11/03/18) VRE/ESBL cefepime (Verified Adverse Reaction, Intermediate, "makes her feel sick", 11/03/18) hydrocodone (Verified Adverse Reaction, Intermediate, itching, 11/12/16) ROS Review of System Review of Systems Review of Systems Constitutional: Denies fever [Admits chills] Eyes: Denies change in visual acuity, redness, or eye pain HENT: Denies nasal congestion or sore throat Respiratory: Denies cough or shortness of breath Cardiovascular: No additional information not addressed in HPI GI: Denies abdominal pain, bloody stools or diarrhea [Admits to nausea and vomiting, with coffee-ground appearance of vomit] : Denies dysuria or hematuria Musculoskeletal: Denies back pain or joint pain Integument: [Admits to skin lesion and "hardness" on the right side of her chest at the site of where her chest port used to be. ] Neurologic: Denies focal weakness or sensory changes [Admits headache] 14 PT systems were reviewed and found to be within normal limits, except as documented PSYCHOLOGICAL ROS: YES: Anxiety Gastrointestinal: Yes Abdominal Pain Physical Exam Physical Exam Physical Exam Physical Exam Constitutional: NO acute distress, HENT: Normocephalic, atraumatic, bilateral external ears normal, oropharynx moist, no oral exudates, nose normal. Poor dentition, erosion noted on left upper incisor. Eyes: PERRLA, EOMI, conjunctiva normal, no discharge. Neck: Normal range of motion, no tenderness, supple, no stridor. Cardiovascular:Heart rate regular rhythm, no murmur Lungs & Thorax: Bilateral breath sounds clear to auscultation Abdomen: Bowel sounds normal, soft, no masses, no pulsatile masses. [TTP in RUQ PT STATES THAT IS UNCHANGED] Skin: Warm, dry, no erythema, no rash. [No Erythema noted at site of chest port removal and patients pain. Indurated region about 4cm in diameter was felt on palpation consistent with fluid retention but no overt signs of infection noted on visual inspection.] Back: No tenderness, no CVA tenderness. Extremities: No tenderness, no cyanosis, no clubbing, ROM intact, no edema. Neurologic: Alert and oriented X 3, normal motor function, normal sensory function, no focal deficits noted. Psychologic: Affect normal, judgement normal, mood normal. General: Alert, Oriented X3, Cooperative HEENT: Atraumatic, EOMI Heart: RRR Breasts: Not examined Abdomen: Soft PELVIC: Examination not indicated Extremities: No cyanosis, No edema Neuro: Normal speech, Cranial nerves 3-12 NL Psych/Mental Status: Mental status NL, Mood NL Vitals Vitals Vital Signs Date Time Temp Pulse Resp B/P (MAP) Pulse Ox O2 Delivery O2 Flow Rate FiO2 02/13/19 09:00 117 18 112/67 (82) 98 02/13/19 07:00 98.0 98.0 02/13/19 06:00 Room Air Labs Labs Laboratory Tests Test 02/12/19 23:37 02/13/19 00:01 02/13/19 00:40 02/13/19 00:59 Bedside Urine HCG, Qualitative Hcg negative (Negative) Urine Collection Type Unknown Urine Color Yellow Urine Clarity Clear Urine pH 6.0 Urine Specific [place] 1.025 Urine Protein Negative mg/dL (NEG-TRACE) Urine Glucose (UA) >=1000 mg/dL (NEG) Urine Ketones (Stick) Negative mg/dL (NEG) Urine Blood Trace (NEG) Urine Nitrite Negative (NEG) Urine Bilirubin Negative (NEG) Urine Urobilinogen Dipstick 0.2 mg/dL (0.2 mg/dL) Urine Leukocyte Esterase Negative (NEG) Urine RBC Occ /HPF (0-2) Urine WBC Occ /HPF (0-4) Urine Squamous Epithelial Cells Mod /LPF Urine Bacteria Moderate /HPF (0-FEW) Urine Mucus Slight /LPF Urine Yeast Present /HPF Urine Opiates Screen Neg (NEG) Urine Methadone Screen Neg (NEG) Urine Barbiturates Neg (NEG) Urine Phencyclidine Screen Neg (NEG) Urine Amphetamine/Methamphetamine Neg (NEG) Urine Benzodiazepines Screen Neg (NEG) Urine Cocaine Screen Neg (NEG) Urine Cannabinoids Screen Neg (NEG) Urine Ethyl Alcohol Neg (NEG) White Blood Count 4.9 x10^3/uL (4.0-11.0) Red Blood Count 4.65 x10^6/uL (3.50-5.40) Hemoglobin 10.9 g/dL (12.0-15.5) Hematocrit 33.8 % (36.0-47.0) Mean Corpuscular Volume 73 fL (79-100) Mean Corpuscular Hemoglobin 23 pg (25-35) Mean Corpuscular Hemoglobin Concent 32 g/dL (31-37) Red Cell Distribution Width 17.2 % (11.5-14.5) Platelet Count 237 x10^3/uL (140-400) Neutrophils (%) (Auto) 56 % (31-73) Lymphocytes (%) (Auto) 35 % (24-48) Monocytes (%) (Auto) 8 % (0-9) Eosinophils (%) (Auto) 1 % (0-3) Basophils (%) (Auto) 0 % (0-3) Neutrophils # (Auto) 2.7 x10^3/uL (1.8-7.7) Lymphocytes # (Auto) 1.7 x10^3/uL (1.0-4.8) Monocytes # (Auto) 0.4 x10^3/uL (0.0-1.1) Eosinophils # (Auto) 0.0 x10^3/uL (0.0-0.7) Basophils # (Auto) 0.0 x10^3/uL (0.0-0.2) Prothrombin Time 13.1 SEC (11.7-14.0) Prothromb Time International Ratio 1.0 (0.8-1.1) Sodium Level 126 mmol/L (136-145) Potassium Level 4.4 mmol/L (3.5-5.1) Chloride Level 92 mmol/L (98-107) Carbon Dioxide Level 19 mmol/L (21-32) Anion Gap 15 (6-14) Blood Urea Nitrogen 9 mg/dL (7-20) Creatinine 0.9 mg/dL (0.6-1.0) Estimated GFR (Cockcroft-Gault) 73.5 BUN/Creatinine Ratio 10 (6-20) Glucose Level 608 mg/dL (70-99) Calcium Level 9.3 mg/dL (8.5-10.1) Magnesium Level 1.9 mg/dL (1.8-2.4) Total Bilirubin 0.3 mg/dL (0.2-1.0) Aspartate Amino Transf (AST/SGOT) 27 U/L (15-37) Alanine Aminotransferase (ALT/SGPT) 44 U/L (14-59) Alkaline Phosphatase 398 U/L (46-116) Troponin I Quantitative < 0.017 ng/mL (0.000-0.055) Total Protein 8.5 g/dL (6.4-8.2) Albumin 3.7 g/dL (3.4-5.0) Albumin/Globulin Ratio 0.8 (1.0-1.7) Lipase 194 U/L (73-393) Procalcitonin 0.14 ng/mL (0.00-0.10) Ethyl Alcohol Level < 10 mg/dL (0-10) Glucose (Fingerstick) 560 mg/dL (70-99) Test 02/13/19 02:34 02/13/19 03:51 02/13/19 04:35 02/13/19 06:08 Glucose (Fingerstick) 479 mg/dL (70-99) 357 mg/dL (70-99) 271 mg/dL (70-99) Sodium Level 133 mmol/L (136-145) Potassium Level 3.8 mmol/L (3.5-5.1) Chloride Level 99 mmol/L (98-107) Carbon Dioxide Level 20 mmol/L (21-32) Anion Gap 14 (6-14) Blood Urea Nitrogen 7 mg/dL (7-20) Creatinine 0.8 mg/dL (0.6-1.0) Estimated GFR (Cockcroft-Gault) 84.2 Glucose Level 351 mg/dL (70-99) Calcium Level 8.9 mg/dL (8.5-10.1) Phosphorus Level 2.8 mg/dL (2.6-4.7) Magnesium Level 1.7 mg/dL (1.8-2.4) Test 02/13/19 08:22 Glucose (Fingerstick) 210 mg/dL (70-99) Laboratory Tests Test 02/12/19 23:37 02/13/19 00:01 02/13/19 00:40 7/15/19 00:59 Bedside Urine HCG, Qualitative Hcg negative (Negative) Urine Collection Type Unknown Urine Color Yellow Urine Clarity Clear Urine pH 6.0 Urine Specific [place] 1.025 Urine Protein Negative mg/dL (NEG-TRACE) Urine Glucose (UA) >=1000 mg/dL (NEG) Urine Ketones (Stick) Negative mg/dL (NEG) Urine Blood Trace (NEG) Urine Nitrite Negative (NEG) Urine Bilirubin Negative (NEG) Urine Urobilinogen Dipstick 0.2 mg/dL (0.2 mg/dL) Urine Leukocyte Esterase Negative (NEG) Urine RBC Occ /HPF (0-2) Urine WBC Occ /HPF (0-4) Urine Squamous Epithelial Cells Mod /LPF Urine Bacteria Moderate /HPF (0-FEW) Urine Mucus Slight /LPF Urine Yeast Present /HPF Urine Opiates Screen Neg (NEG) Urine Methadone Screen Neg (NEG) Urine Barbiturates Neg (NEG) Urine Phencyclidine Screen Neg (NEG) Urine Amphetamine/Methamphetamine Neg (NEG) Urine Benzodiazepines Screen Neg (NEG) Urine Cocaine Screen Neg (NEG) Urine Cannabinoids Screen Neg (NEG) Urine Ethyl Alcohol Neg (NEG) White Blood Count 4.9 x10^3/uL (4.0-11.0) Red Blood Count 4.65 x10^6/uL (3.50-5.40) Hemoglobin 10.9 g/dL (12.0-15.5) Hematocrit 33.8 % (36.0-47.0) Mean Corpuscular Volume 73 fL (79-100) Mean Corpuscular Hemoglobin 23 pg (25-35) Mean Corpuscular Hemoglobin Concent 32 g/dL (31-37) Red Cell Distribution Width 17.2 % (11.5-14.5) Platelet Count 237 x10^3/uL (140-400) Neutrophils (%) (Auto) 56 % (31-73) Lymphocytes (%) (Auto) 35 % (24-48) Monocytes (%) (Auto) 8 % (0-9) Eosinophils (%) (Auto) 1 % (0-3) Basophils (%) (Auto) 0 % (0-3) Neutrophils # (Auto) 2.7 x10^3/uL (1.8-7.7) Lymphocytes # (Auto) 1.7 x10^3/uL (1.0-4.8) Monocytes # (Auto) 0.4 x10^3/uL (0.0-1.1) Eosinophils # (Auto) 0.0 x10^3/uL (0.0-0.7) Basophils # (Auto) 0.0 x10^3/uL (0.0-0.2) Prothrombin Time 13.1 SEC (11.7-14.0) Prothromb Time International Ratio 1.0 (0.8-1.1) Sodium Level 126 mmol/L (136-145) Potassium Level 4.4 mmol/L (3.5-5.1) Chloride Level 92 mmol/L (98-107) Carbon Dioxide Level 19 mmol/L (21-32) Anion Gap 15 (6-14) Blood Urea Nitrogen 9 mg/dL (7-20) Creatinine 0.9 mg/dL (0.6-1.0) Estimated GFR (Cockcroft-Gault) 73.5 BUN/Creatinine Ratio 10 (6-20) Glucose Level 608 mg/dL (70-99) Calcium Level 9.3 mg/dL (8.5-10.1) Magnesium Level 1.9 mg/dL (1.8-2.4) Total Bilirubin 0.3 mg/dL (0.2-1.0) Aspartate Amino Transf (AST/SGOT) 27 U/L (15-37) Alanine Aminotransferase (ALT/SGPT) 44 U/L (14-59) Alkaline Phosphatase 398 U/L (46-116) Troponin I Quantitative < 0.017 ng/mL (0.000-0.055) Total Protein 8.5 g/dL (6.4-8.2) Albumin 3.7 g/dL (3.4-5.0) Albumin/Globulin Ratio 0.8 (1.0-1.7) Lipase 194 U/L (73-393) Procalcitonin 0.14 ng/mL (0.00-0.10) Ethyl Alcohol Level < 10 mg/dL (0-10) Glucose (Fingerstick) 560 mg/dL (70-99) Test 02/13/19 02:34 02/13/19 03:51 02/13/19 04:35 02/13/19 06:08 Glucose (Fingerstick) 479 mg/dL (70-99) 357 mg/dL (70-99) 271 mg/dL (70-99) Sodium Level 133 mmol/L (136-145) Potassium Level 3.8 mmol/L (3.5-5.1) Chloride Level 99 mmol/L (98-107) Carbon Dioxide Level 20 mmol/L (21-32) Anion Gap 14 (6-14) Blood Urea Nitrogen 7 mg/dL (7-20) Creatinine 0.8 mg/dL (0.6-1.0) Estimated GFR (Cockcroft-Gault) 84.2 Glucose Level 351 mg/dL (70-99) Calcium Level 8.9 mg/dL (8.5-10.1) Phosphorus Level 2.8 mg/dL (2.6-4.7) Magnesium Level 1.7 mg/dL (1.8-2.4) Test 02/13/19 08:22 Glucose (Fingerstick) 210 mg/dL (70-99) Images Images PROCEDURE: CT ABD PELV W/ IV CONTRST ONLY PQRS Compliance statement: One or more of the following individualized dose reduction techniques were utilized for this examination: 1. Automated exposure control. 2. Adjustment of the mA and/or kV according to patient size. 3. Use of iterative reconstruction technique. Indication:ABD PAIN; OMNI 300, 75ML TECHNIQUE: CT abdomen and pelvis with IV contrast with multiplanar reformats. COMPARISON: 10/08/2018 FINDINGS: Heart is normal in size. No pericardial or pleural effusion. Stable cardiophrenic recess lymph node measuring 1.7 x 1.0 cm. Interstitial opacities in the visualized lung bases. Motion artifact is seen in the abdomen limiting optimal evaluation. Liver is moderately enlarged measuring 26 cm in craniocaudal dimension. Spleen is moderately enlarged measuring 19 cm without focal lesion. Status post cholecystectomy. Pancreas within normal limits. No adrenal gland mass or nodules. No nephrolithiasis or hydronephrosis. No enlarged retroperitoneal or pelvic adenopathy. No free pelvic fluid or ascites. No bowel obstruction. Anteverted uterus. Urinary bladder is distended without radiopaque stone or focal lesion. No pneumoperitoneum. No suspicious bony lesion. IMPRESSION: 1. Moderate hepatomegaly, nonspecific. 2. Interstitial opacities in the visualized lung bases may be secondary to interstitial pulmonary edema or atypical/viral infection. Electronically signed by: Gisela Reid DO (12/02/2018 1:20 AM) [facility] DICTATED and SIGNED BY: GISELA REID DO DATE: 12/02/18 0120 Ultrasound of the right chest wall 02/11/2019 CLINICAL HISTORY: Swelling in the right chest wall the region of a Port-A-Cath catheter. TECHNIQUE: A real-time ultrasound examination of the right chest wall in the area the patient's swelling was performed. Multiple images were obtained. FINDINGS: Comparison study is dated 01/27/2019. A complex fluid collection is seen within the subcutaneous fat within the right chest wall which measures 4 cm in greatest diameter. The fluid component has decreased in size since the previous examination. Reportedly it was recently drained. Its ultrasound appearance is consistent most likely with a seroma. IMPRESSION: 4 cm complex fluid collection is seen within the right chest wall. The fluid component has decreased since the previous examination. This felt to most likely represent a seroma. Electronically signed by: Redd Rosario MD (02/13/2019 2:14 AM) [facility] VTE Prophylaxis Ordered VTE Prophylaxis Devices: No VTE Pharmacological Prophylaxi: Yes Assessment/Plan Assessment/Plan DKA hyperglycemia. uncontrolled resume home regimen as sugars now elevated. LAST A1C 7.9 12/18 Moderate hepatomegaly, nonspecific. 4 cm complex fluid collection is seen within the right chest wall. The fluid component has decreased since the previous examination. This felt to most likely represent a seroma. 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, pt to sign consent form d/w DAVID 37 MIN CC TIME JESSICA KOENIG MD Feb 13, 2019 10:06
[2019-02-13] MEDS: LACTOBACILLUS RHAMNOSUS GG 1 CAPSULE. PO SCH ×2 (12:16→21:49)
[2019-02-13] MEDS: ONDANSETRON ODT 4 MG TAB.RAPDIS. PO PRN ×2 (12:16→22:25)
[2019-02-13] MEDS: diazePAM 5 MG TABLET PO SCH ×3 (12:16→21:49)
[2019-02-13] MEDS: FERROUS SULFATE 325 MG TABLET. PO SCH ×2 (12:16→17:13)
--- NOTE | 2019-02-13 12:37 | NUR ---
SS following for discharge planning. SS reviewed pt chart. Pt is self pay pt. HCFS following for self pay status. Pt is from home and is currently on room air. SS will continue to follow for discharge planning.
[2019-02-13] MEDS: MORPHINE SULFATE 2 MG/ML VIAL. IV PRN ×3 (13:43→22:28)
--- NOTE | 2019-02-13 14:45 | NUR ---
pt being transfered to 572. report called. offered to take pt to toilet. pt refused. pt was given morphine 2 mg iv earlier pt continues to state that her pain now a 2/2 on scale 1 to 10 with 10 being severe. inside sales specialist removed.
--- NOTE | 2019-02-13 15:00 | NUR ---
report received from ICU nurse. pt transferred to room 572. oriented to room and call light. significant other present in room. IVF infusing.
[2019-02-13] MEDS: PATCH REMOVAL. MC SCH (21:00)
[2019-02-13] MEDS: QUEtiapine 100 MG TABLET. PO SCH ×2 (21:49→21:50)
[2019-02-13] MEDS: INSULIN GLARGINE 300 UNITS/3 ML INSULN.PEN. SQ SCH (21:57)
[2019-02-14] MEDS: MORPHINE SULFATE 2 MG/ML VIAL. IV PRN ×3 (01:59→15:45)
[2019-02-14 03:00] VITALS: BP 128/90
[2019-02-14 06:42] LABS: BASO % 1 % (0-3); EOS # 0.1 x10^3/uL (0.0-0.7); EOS % 2 % (0-3); HEMOGLOBIN 11.1 g/dL (12.0-15.5); LYMPH # 1.4 x10^3/uL (1.0-4.8); LYMPH % 31 % (24-48); MEAN CORPUSCULAR HEMOGLOBIN 23 pg (25-35); MEAN CORPUSCULAR HGB CONC 32 g/dL (31-37); MEAN CORPUSCULAR VOLUME 73 fL (79-100); MONO # 0.3 x10^3/uL (0.0-1.1); MONO % 6 % (0-9); NEUT # 2.7 x10^3/uL (1.8-7.7); NEUT % 60 % (31-73); PLATELET COUNT 109 x10^3/uL (140-400); RED BLOOD COUNT 4.78 x10^6/uL (3.50-5.40); RED CELL DISTRIBUTION WIDTH 17.4 % (11.5-14.5); WHITE BLOOD COUNT 4.6 x10^3/uL (4.0-11.0)
[2019-02-14] MEDS: ONDANSETRON ODT 4 MG TAB.RAPDIS. PO PRN (06:50)
[2019-02-14 07:00] VITALS: BP 129/77
[2019-02-14 07:57] LABS: ALBUMIN 3.6 g/dL (3.4-5.0); ALBUMIN/GLOBULIN RATIO 0.7 (1.0-1.7); CREATININE 0.6 mg/dL (0.6-1.0); GFR 117.4; POTASSIUM 3.8 mmol/L (3.5-5.1); TOTAL BILIRUBIN 0.3 mg/dL (0.2-1.0); TOTAL PROTEIN 8.5 g/dL (6.4-8.2)
[2019-02-14] MEDS: FERROUS SULFATE 325 MG TABLET. PO SCH ×2 (08:08→17:06)
[2019-02-14] MEDS: LACTOBACILLUS RHAMNOSUS GG 1 CAPSULE. PO SCH ×2 (08:08→20:57)
[2019-02-14] MEDS: diazePAM 5 MG TABLET PO SCH ×4 (08:08→20:57)
[2019-02-14] MEDS: LIDOCAINE (700MG/PATCH) PATCH. TD SCH (08:08)
[2019-02-14] MEDS: INSULIN GLARGINE 300 UNITS/3 ML INSULN.PEN. SQ SCH ×2 (08:24→13:46)
[2019-02-14] MEDS: INSULIN LISPRO 300 UNITS/3 ML INSULN.PEN. SQ SCH ×6 (08:25→17:00)
[2019-02-14 11:00] VITALS: BP 124/70
--- NOTE | 2019-02-14 11:15 | PDOC ---
[employer] NOTE Chief Complaint Chief Complaint DKA hyperglycemia. uncontrolled resume home regimen as sugars now elevated. Moderate hepatomegaly, nonspecific. 4 cm complex fluid collection is seen within the right chest wall. The fluid component has decreased since the previous examination. This felt to most likely represent a seroma. 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 Acute urinary retention - straight cath prn History of Present Illness History of Present Illness 02-14-2019 Patient was seen and examined She says that she is having some pain and requested tramadol instead of morphine She was resting comfortably in bed She is feeling better Vitals/I&O Vitals/I&O: Vital Signs Date Time Temp Pulse Resp B/P (MAP) Pulse Ox O2 Delivery O2 Flow Rate FiO2 02/14/19 07:00 97.8 92 18 129/77 (94) 98 Room Air 97.8 I & O 02/13/19 02/13/19 02/14/19 15:00 23:00 07:00 Intake Total 1333.7 ml 540 ml 300 ml Balance 1333.7 ml 540 ml 300 ml Physical Exam General: Alert, Oriented X3, Cooperative Heart: Regular rate, Normal S1, Normal S2 Lungs: Clear Abdomen: Normal bowel sounds, Soft Extremities: No cyanosis, No edema Skin: No rashes, No breakdown Labs Labs: Laboratory Tests Test 02/13/19 12:19 02/13/19 16:42 02/13/19 21:14 02/14/19 05:45 Glucose (Fingerstick) 260 mg/dL (70-99) 88 mg/dL (70-99) 181 mg/dL (70-99) White Blood Count 4.6 x10^3/uL (4.0-11.0) Red Blood Count 4.78 x10^6/uL (3.50-5.40) Hemoglobin 11.1 g/dL (12.0-15.5) Hematocrit 35.0 % (36.0-47.0) Mean Corpuscular Volume 73 fL (79-100) Mean Corpuscular Hemoglobin 23 pg (25-35) Mean Corpuscular Hemoglobin Concent 32 g/dL (31-37) Red Cell Distribution Width 17.4 % (11.5-14.5) Platelet Count 109 x10^3/uL (140-400) Neutrophils (%) (Auto) 60 % (31-73) Lymphocytes (%) (Auto) 31 % (24-48) Monocytes (%) (Auto) 6 % (0-9) Eosinophils (%) (Auto) 2 % (0-3) Basophils (%) (Auto) 1 % (0-3) Neutrophils # (Auto) 2.7 x10^3/uL (1.8-7.7) Lymphocytes # (Auto) 1.4 x10^3/uL (1.0-4.8) Monocytes # (Auto) 0.3 x10^3/uL (0.0-1.1) Eosinophils # (Auto) 0.1 x10^3/uL (0.0-0.7) Basophils # (Auto) 0.0 x10^3/uL (0.0-0.2) Sodium Level 135 mmol/L (136-145) Potassium Level 3.8 mmol/L (3.5-5.1) Chloride Level 103 mmol/L (98-107) Carbon Dioxide Level 19 mmol/L (21-32) Anion Gap 13 (6-14) Blood Urea Nitrogen 8 mg/dL (7-20) Creatinine 0.6 mg/dL (0.6-1.0) Estimated GFR (Cockcroft-Gault) 117.4 BUN/Creatinine Ratio 13 (6-20) Glucose Level 160 mg/dL (70-99) Calcium Level 9.0 mg/dL (8.5-10.1) Total Bilirubin 0.3 mg/dL (0.2-1.0) Aspartate Amino Transf (AST/SGOT) 38 U/L (15-37) Alanine Aminotransferase (ALT/SGPT) 35 U/L (14-59) Alkaline Phosphatase 337 U/L (46-116) Total Protein 8.5 g/dL (6.4-8.2) Albumin 3.6 g/dL (3.4-5.0) Albumin/Globulin Ratio 0.7 (1.0-1.7) Test 02/14/19 07:52 Glucose (Fingerstick) 173 mg/dL (70-99) Review of Systems Review of Systems: General: No fever, no chills GI: Some abdominal pain, no nausea, no vomiting Assessment and Plan Assessmemt and Plan Problems Medical Problems: (1) High anion gap metabolic acidosis Status: Acute (2) Hyperglycemia Status: Acute (3) Hyponatremia Status: Acute Assessment: DKA hyperglycemia. uncontrolled resume home regimen as sugars now elevated Moderate hepatomegaly, nonspecific. 4 cm complex fluid collection is seen within the right chest wall. The fluid component has decreased since the previous examination. This felt to most likely represent a seroma. 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 Medications: Current Medications Medications (Trade) Dose Ordered Sig/Naya Route PRN Reason Start Time Stop Time Status Last Admin Dose Admin Miscellaneous (Lidoderm Patch Removal) 1 ea QHS MC 02/13/19 21:00 02/13/19 21:00 Diazepam (Valium) 5 mg QID PO 02/13/19 13:00 02/14/19 08:08 Insulin Glargine (Lantus) 80 units [id number] SQ 02/13/19 21:00 02/14/19 08:24 Insulin Human Lispro (HumaLOG) 25 units TIDWMEALS SQ 02/13/19 12:00 02/14/19 08:25 Quetiapine Fumarate (SEROquel) 100 mg HS PO 02/13/19 20:00 02/13/19 21:50 Morphine Sulfate (Morphine Sulfate) 2 mg PRN Q6HRS PRN IV PAIN 02/13/19 13:30 02/13/19 21:14 DC 02/13/19 19:43 Morphine Sulfate (Morphine Sulfate) 3 mg PRN Q6HRS PRN IV PAIN 02/13/19 21:15 02/14/19 08:13 EDGARD GUTIERREZ III DO Feb 14, 2019 11:15
--- NOTE | 2019-02-14 12:56 | NUR ---
novolog non admin as pt did not want to wake up for lunch or take insulin. finger stick was 113.
[2019-02-14] MEDS: traMADol 50 MG TABLET PO PRN ×2 (13:47→20:57)
[2019-02-14 15:09] VITALS: BP 120/65
--- NOTE | 2019-02-14 15:17 | NUR ---
SW following for discharge planning. Chart reviewed and Pt is from home with frequent hospital visits. No dc/SW needs noted at this time.
[2019-02-14] MEDS: QUEtiapine 100 MG TABLET. PO SCH (20:57)
[2019-02-14] MEDS: PATCH REMOVAL. MC SCH (20:57)
[2019-02-14 21:58] VITALS: BP 98/50
[2019-02-14 23:00] VITALS: BP 103/62
[2019-02-15] MEDS: MORPHINE SULFATE 2 MG/ML VIAL. IV PRN (01:00)
[2019-02-15 03:00] VITALS: BP 100/52
[2019-02-15 07:00] VITALS: BP 96/67
[2019-02-15] MEDS: diazePAM 5 MG TABLET PO SCH ×3 (07:55→16:08)
[2019-02-15] MEDS: LACTOBACILLUS RHAMNOSUS GG 1 CAPSULE. PO SCH (07:55)
[2019-02-15] MEDS: FERROUS SULFATE 325 MG TABLET. PO SCH ×2 (07:55→16:08)
[2019-02-15] MEDS: INSULIN GLARGINE 300 UNITS/3 ML INSULN.PEN. SQ SCH (07:57)
[2019-02-15] MEDS: INSULIN LISPRO 300 UNITS/3 ML INSULN.PEN. SQ SCH ×6 (07:58→16:08)
[2019-02-15] MEDS: LIDOCAINE (700MG/PATCH) PATCH. TD SCH (07:59)
[2019-02-15] MEDS ORDERED: TRAM50TA PO (09:12)
[2019-02-15] MEDS ORDERED: LIDO700A21 TD (09:12)
[2019-02-15] MEDS: traMADol 50 MG TABLET PO PRN ×2 (09:14→16:07)
--- NOTE | 2019-02-15 10:08 | PDOC3 ---
Discharge Summary Visit Information Date of Admission: Feb 13, 2019 Date of Discharge: Feb 15, 2019 Admitting Diagnosis Comment: DKA hyperglycemia. uncontrolled resume home regimen as sugars now elevated. Moderate hepatomegaly, nonspecific. 4 cm complex fluid collection is seen within the right chest wall. The fluid component has decreased since the previous examination. This felt to most likely represent a seroma. 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 Acute urinary retention - straight cath prn Final Diagnosis Problems Medical Problems: (1) High anion gap metabolic acidosis Status: Acute (2) Hyperglycemia Status: Acute (3) Hyponatremia Status: Acute Brief Hospital Course Allergies Allergies Coded Allergies Type Severity Reaction Last Updated Verified Penicillins Allergy Severe ANAPHYLAXIS 01/24/19 Yes doxycycline Allergy Intermediate 11/12/16 Yes fentanyl Allergy Intermediate 11/12/16 Yes I S O L A T I O N *CONTACT* Allergy Unknown 11/03/18 Yes cefepime Adverse Reaction Intermediate "makes her feel sick" 11/03/18 Yes hydrocodone Adverse Reaction Intermediate itching 11/12/16 Yes Vital Signs Vital Signs Date Time Temp Pulse Resp B/P (MAP) Pulse Ox O2 Delivery O2 Flow Rate FiO2 02/15/19 09:14 Room Air 02/15/19 07:00 98.2 103 18 96/67 (77) 93 98.2 Lab Results Laboratory Tests Test 02/13/19 12:19 02/13/19 16:42 02/13/19 21:14 02/14/19 05:45 Glucose (Fingerstick) 260 mg/dL (70-99) 88 mg/dL (70-99) 181 mg/dL (70-99) White Blood Count 4.6 x10^3/uL (4.0-11.0) Red Blood Count 4.78 x10^6/uL (3.50-5.40) Hemoglobin 11.1 g/dL (12.0-15.5) Hematocrit 35.0 % (36.0-47.0) Mean Corpuscular Volume 73 fL (79-100) Mean Corpuscular Hemoglobin 23 pg (25-35) Mean Corpuscular Hemoglobin Concent 32 g/dL (31-37) Red Cell Distribution Width 17.4 % (11.5-14.5) Platelet Count 109 x10^3/uL (140-400) Neutrophils (%) (Auto) 60 % (31-73) Lymphocytes (%) (Auto) 31 % (24-48) Monocytes (%) (Auto) 6 % (0-9) Eosinophils (%) (Auto) 2 % (0-3) Basophils (%) (Auto) 1 % (0-3) Neutrophils # (Auto) 2.7 x10^3/uL (1.8-7.7) Lymphocytes # (Auto) 1.4 x10^3/uL (1.0-4.8) Monocytes # (Auto) 0.3 x10^3/uL (0.0-1.1) Eosinophils # (Auto) 0.1 x10^3/uL (0.0-0.7) Basophils # (Auto) 0.0 x10^3/uL (0.0-0.2) Sodium Level 135 mmol/L (136-145) Potassium Level 3.8 mmol/L (3.5-5.1) Chloride Level 103 mmol/L (98-107) Carbon Dioxide Level 19 mmol/L (21-32) Anion Gap 13 (6-14) Blood Urea Nitrogen 8 mg/dL (7-20) Creatinine 0.6 mg/dL (0.6-1.0) Estimated GFR (Cockcroft-Gault) 117.4 BUN/Creatinine Ratio 13 (6-20) Glucose Level 160 mg/dL (70-99) Calcium Level 9.0 mg/dL (8.5-10.1) Total Bilirubin 0.3 mg/dL (0.2-1.0) Aspartate Amino Transf (AST/SGOT) 38 U/L (15-37) Alanine Aminotransferase (ALT/SGPT) 35 U/L (14-59) Alkaline Phosphatase 337 U/L (46-116) Total Protein 8.5 g/dL (6.4-8.2) Albumin 3.6 g/dL (3.4-5.0) Albumin/Globulin Ratio 0.7 (1.0-1.7) Test 02/14/19 07:52 02/14/19 11:27 02/14/19 16:30 02/14/19 21:00 Glucose (Fingerstick) 173 mg/dL (70-99) 113 mg/dL (70-99) 66 mg/dL (70-99) 74 mg/dL (70-99) Test 02/15/19 07:18 Glucose (Fingerstick) 169 mg/dL (70-99) Laboratory Tests Test 02/14/19 11:27 02/14/19 16:30 02/14/19 21:00 02/15/19 07:18 Glucose (Fingerstick) 113 mg/dL (70-99) 66 mg/dL (70-99) 74 mg/dL (70-99) 169 mg/dL (70-99) Brief Hospital Course Ms. Smith is a 28 old age female, frequent flyer for DKA. She claims she's compliant with her regimen which is 80 twice a day long-acting and 25 3 times a day mealtimes She also likes her narcotics. She is on Valium, ferrous sulfate etc. She requested tramadol and Lidoderm patch from Dr. Pedro I have Rx'd those scripts Gap is closed. She will go home with her home regimen. She claims she has insulin pens and also test strips etc. I only wrote for pain med scripts as per her request - only a few pills less than 30 supply Consults performed none Procedures performed none Time since discharge less than 30 minutes She stayed 2 or 3 midnights with us Discharge Information Condition at Discharge: Improved, Stable Disposition/Orders: D/C to Home Scheduled Diazepam (Valium) 5 Mg Tablet, 5 MG PO QID for anxiety, (Reported) Entered as Reported by: LUDWIN JERONIMO on 01/24/19 0605 Last Action: Continued on 02/13/191052 by Caro Reynolds Ferrous Sulfate (Ferrous Sulfate) 325 Mg Tablet, 325 MG PO BID for iron supplement, (Reported) Entered as Reported by: ZACH RANDALL on 10/26/17 1923 Last Action: Continued on 02/13/19 105 by Caro Reynolds Insulin Glargine,Hum.rec.anlog (Lantus Solostar) 100 Unit/1 Ml Insuln.pen, 80 UNITS SQ BID for diabetes for 30 Days, #2 Prescribed by: JESSICA KOENIG MD on 01/30/19 1610 Last Action: Continued on 02/13/191052 by Caro Reynolds Insulin Lispro (Humalog) 100 Unit/1 Ml Insuln.pen, 25 UNITS SQ TIDWMEALS for diabetes for 30 Days, #1 Prescribed by: JESSICA KOENIG MD on 01/30/191609 Last Action: Continued on 02/13/191052 by Caro Reynolds Lactobacillus Rhamnosus Gg (Culturelle) 1 Each Cap.sprink, 1 CAP PO BID for gut supplement for 28 Days, #56 Prescribed by: JESSICA KOENIG MD on 01/30/191609 Last Action: Continued on 02/13/191052 by Caro Reynolds Lidocaine (Lidocaine PATCH ) 1 Each Adh..patch, 1 PATCH TD DAILY for pain, #10 Prescribed by: HIRAL EATON on 02/15/19911 Quetiapine Fumarate (Seroquel) 100 Mg Tablet, 1 TAB PO QHS for mental health, # 30 Ref 1 (Reported) Entered as Reported by: Brigitte Stanley on 12/21/17 0529 Last Action: Converted on 02/13/191052 by Caro Reynolds Scheduled PRN Ondansetron (Ondansetron Odt) 4 Mg Tab.rapdis, 4 MG PO PRN Q6HRS PRN for NAUSEA/VOMITING for 10 Days, #30 Prescribed by: JESSICA KOENIG MD on 01/30/191609 Last Action: Continued on 02/13/191052 by aCro Reynolds Tramadol Hcl (Tramadol Hcl) 50 Mg Tablet, 50 MG PO Q6HRS PRN for PAIN, #30 Prescribed by: HIRAL EATON on 02/15/19911 HIRAL EATON MD Feb 15, 2019 10:08
[2019-02-15 11:00] VITALS: BP 96/54
[2019-02-15 15:16] VITALS: BP 92/49
--- NOTE | 2019-02-15 18:11 | NUR ---
Discharge Note: PT DISCHARGED HOME WITH SELF CARE. PT LEFT FACILITY VIA CAB PASS WITH BOYFRIEND. PT STABLE AND ALERT UPON DISCHARGE. PT PIV REMOVED FROM RLE WITHOUT COMPLICATIONS, BANDAGE APPLIED. PT EDUCATED ABOUT DISCHARGE MEDICATIONS AND USAGE, DISCHARGE INSTRUCTIONS, AND FOLLOW-UP CARE. NO CONCERNS VOICED AT THIS TIME. SAMANTHA DOWD Discharge instructions and discharge home medications reviewed with Patient and a copy given. All questions have been answered and understanding verbalized.
[2019-02-15] MEDS ORDERED: INSULIN GLARGINE 300 UNITS/3 ML INSULN.PEN. SQ SCH (21:00)
== END 2019-02-15 18:13 | disposition home or self-care (01) | DRG 638 ==
LOC: ER 02-13 00:11 → 1 WEST ICU 02-13 01:55 → 5 SOUTH 02-13 15:04
PROVIDERS: ADMIT Internal Medicine; ATTEND Internal Medicine
DX: E10.10 Type 1 diabetes mellitus with ketoacidosis without coma (principal); E87.1 Hypo-osmolality and hyponatremia; F41.9 Anxiety disorder, unspecified; I10 Essential (primary) hypertension; F17.210 Nicotine dependence, cigarettes, uncomplicated; R33.9 Retention of urine, unspecified; M79.81 Nontraumatic hematoma of soft tissue; R16.2 Hepatomegaly with splenomegaly, not elsewhere classified; Z86.718 Personal history of other venous thrombosis and embolism; Z89.012 Acquired absence of left thumb; Z88.1 Allergy status to other antibiotic agents; Z88.5 Allergy status to narcotic agent; Z88.0 Allergy status to penicillin; Z79.4 Long term (current) use of insulin; Z82.49 Family history of ischemic heart disease and other diseases of the circulatory system; Z86.14 Personal history of Methicillin resistant Staphylococcus aureus infection
CPT/HCPCS: 36415; 71045; 76604; 80048; 80053; 80307; 81001; 81025; 82962; 83690; 83735; 84100; 84145; 84484; 85025; 85610; 87086; 87641; 93005; 96361; 96374; 96375; G0480; J1815; J2270; J2405; J7030; Q0162; 99285-25

== ENCOUNTER 2019-04-12 01:50 | Emergency (ER) | payer SELFPAY ==
[~2019-04-12] VITALS: Ht 170.2 cm; Wt 84.4 kg
[~2019-04-12 01:50] MED LIST changes: +CEPH-264 PO; +LIDO700A21 TD; -LINE600T PO; +LINE600T37 PO
[2019-04-12 02:31] LABS: BILIRUBIN,URINE NEGATIVE (NEG); CLARITY,URINE CLEAR; COLOR,URINE YELLOW; NITRITE,URINE NEGATIVE (NEG); PROTEIN,URINE NEGATIVE (NEG-TRACE); UROBILINOGEN,URINE 0.2 mg/dL (0.2 mg/dL)
[2019-04-12 02:39] LABS: SQUAMOUS EPITHELIAL CELL,UR MOD /LPF
[2019-04-12 02:40] LABS: BACTERIA,URINE MANY /HPF (0-FEW); RBC,URINE TNTC /HPF (0-2); WBC,URINE 20-40 /HPF (0-4)
[2019-04-12 02:40] LABS: BASO % 1 % (0-3); EOS # 0.1 x10^3/uL (0.0-0.7); EOS % 2 % (0-3); HEMATOCRIT 27.6 % (36.0-47.0); HEMOGLOBIN 8.7 g/dL (12.0-15.5); LYMPH # 1.5 x10^3/uL (1.0-4.8); LYMPH % 43 % (24-48); MEAN CORPUSCULAR HEMOGLOBIN 22 pg (25-35); MEAN CORPUSCULAR HGB CONC 32 g/dL (31-37); MEAN CORPUSCULAR VOLUME 69 fL (79-100); MONO # 0.4 x10^3/uL (0.0-1.1); MONO % 10 % (0-9); NEUT # 1.5 x10^3/uL (1.8-7.7); NEUT % 44 % (31-73); PLATELET COUNT 211 x10^3/uL (140-400); RED BLOOD COUNT 4.01 x10^6/uL (3.50-5.40); RED CELL DISTRIBUTION WIDTH 16.7 % (11.5-14.5); WHITE BLOOD COUNT 3.4 x10^3/uL (4.0-11.0)
[2019-04-12] MEDS: IV NORMAL SALINE 1000ML BAG 1,000 ML IV ONE ×2 (02:50→04:02)
[2019-04-12 02:57] LABS: ALBUMIN 3.5 g/dL (3.4-5.0); ALBUMIN/GLOBULIN RATIO 0.8 (1.0-1.7); CALCIUM 8.6 mg/dL (8.5-10.1); GFR 65.1; MAGNESIUM 1.6 mg/dL (1.8-2.4); POTASSIUM 4.7 mmol/L (3.5-5.1); TOTAL BILIRUBIN 0.3 mg/dL (0.2-1.0); TOTAL PROTEIN 7.7 g/dL (6.4-8.2)
[2019-04-12 03:12] LABS: ANISOCYTOSIS SLIGHT; PLT ESTIMATE ADEQUATE (ADEQUATE)
[2019-04-12 03:13] LABS: HYPOCHROMIA MOD; MICROCYTOSIS MARKED
[2019-04-12] MEDS: ONDANSETRON PF 4 MG/2 ML VIAL. IV ONE (03:19)
[2019-04-12] MEDS: INSULIN REGULAR 100 UNIT/ML 3ML VIAL. IV ONE (03:21)
--- NOTE | 2019-04-12 03:51 | PHYS DOC ---
Past Medical History Past Medical History: Anemia, Anxiety, Diabetes-Type I, DVT, Ovarian Cyst Additional Past Medical Histor: VENTRAL HERNIA, L leg clot Past Surgical History: Other Additional Past Surgical Histo: R fallopian, L ovary cyst removed,HERNIA REPAIR, I&D L ARM, left thumb amp Alcohol Use: None Drug Use: None Adult General Chief Complaint Chief Complaint: MULTIPLE COMPLAINTS HPI HPI Patient is a 28 year old female with history of diabetic, presented to ER today for evaluation of nausea, vomiting, frequent urination with burning sensation for about 3 days. She denies any fever, no cough, no chest pain, no trouble breathing. She denies any abdominal pain. Patient says she checked her blood sugar at home and it was too high to measure so she came in here for evaluation. Patient is on insulin for diabetic. She had been evaluated here numerous times in the past for uncontrolled diabetic. All other ROS is negative unless otherwise noted in HPI Review of Systems Review of Systems See above Current Medications Current Medications Current Medications Medications (Trade) Dose Ordered Sig/[place] Start Time Stop Time Status Last Admin Dose Admin Insulin Human Regular (HumuLIN R VIAL) 10 unit 1X ONCE 04/12/19 03:15 04/12/19 03:24 DC 04/12/19 03:21 10 UNIT Ketorolac Tromethamine (Toradol 30mg Vial) 30 mg 1X ONCE 04/12/19 03:45 04/12/19 03:46 DC 04/12/19 04:02 30 MG Levofloxacin/ Dextrose 150 ml @ 100 mls/hr 1X ONCE 04/12/19 03:15 04/12/19 04:44 04/12/19 03:21 100 MLS/HR Metoclopramide HCl (Reglan Vial) 10 mg 1X ONCE 04/12/19 04:45 04/12/19 04:46 UNV Ondansetron HCl (Zofran) 8 mg 1X ONCE 04/12/19 03:15 04/12/19 03:17 DC 04/12/19 03:21 8 MG Sodium Chloride 1,000 ml @ 1,000 mls/hr 1X ONCE 04/12/19 04:00 04/12/19 04:59 04/12/19 04:02 1,000 MLS/HR Allergies Allergies Allergies Coded Allergies Type Severity Reaction Last Updated Verified Penicillins Allergy Severe ANAPHYLAXIS 03/19/19 Yes doxycycline Allergy Intermediate 03/19/19 Yes fentanyl Allergy Intermediate 03/19/19 Yes I S O L A T I O N *CONTACT* Allergy Unknown 04/10/19 Yes cefepime Adverse Reaction Intermediate "makes her feel sick" 03/19/19 Yes hydrocodone Adverse Reaction Intermediate itching 03/19/19 Yes Physical Exam Physical Exam See above Constitutional: Well developed, well nourished, no acute distress, non-toxic appearance. [] HENT: Normocephalic, atraumatic, bilateral external ears normal, oropharynx moist, no oral exudates, nose normal. [] Eyes: PERRLA, EOMI, conjunctiva normal, no discharge. [] Neck: Normal range of motion, no tenderness, supple, no stridor. [] Cardiovascular:Heart rate regular rhythm, no murmur [] Lungs & Thorax: Bilateral breath sounds clear to auscultation [] Abdomen: Bowel sounds normal, soft, no tenderness, no masses, no pulsatile masses. [] Skin: Warm, dry, no erythema, no rash. [] Back: No tenderness, no CVA tenderness. [] Extremities: No tenderness, no cyanosis, no clubbing, ROM intact, no edema. [] Neurologic: Alert and oriented X 3, normal motor function, normal sensory function, no focal deficits noted. [] Psychologic: Affect normal, judgement normal, mood normal. [] Current Patient Data Vital Signs Vital Signs Date Time Temp Pulse Resp B/P (MAP) Pulse Ox O2 Delivery O2 Flow Rate FiO2 04/12/19 02:00 98.4 20 124/67 (86) 96 Room Air 98.4 Lab Values Laboratory Tests Test 04/12/19 01:57 04/12/19 02:00 04/12/19 02:30 04/12/19 04:22 Urine Collection Type Unknown Urine Color Yellow Urine Clarity Clear Urine pH 6.0 Urine Specific [place] 1.025 Urine Protein Negative mg/dL (NEG-TRACE) Urine Glucose (UA) >=1000 mg/dL (NEG) Urine Ketones (Stick) Negative mg/dL (NEG) Urine Blood Large (NEG) Urine Nitrite Negative (NEG) Urine Bilirubin Negative (NEG) Urine Urobilinogen Dipstick 0.2 mg/dL (0.2 mg/dL) Urine Leukocyte Esterase Moderate (NEG) Urine RBC Tntc /HPF (0-2) Urine WBC 20-40 /HPF (0-4) Urine Squamous Epithelial Cells Mod /LPF Urine Bacteria Many /HPF (0-FEW) Urine Mucus Slight /LPF POC Urine HCG, Qualitative Hcg negative (Negative) White Blood Count 3.4 x10^3/uL (4.0-11.0) L Red Blood Count 4.01 x10^6/uL (3.50-5.40) Hemoglobin 8.7 g/dL (12.0-15.5) L Hematocrit 27.6 % (36.0-47.0) L Mean Corpuscular Volume 69 fL (79-100) L Mean Corpuscular Hemoglobin 22 pg (25-35) L Mean Corpuscular Hemoglobin Concent 32 g/dL (31-37) Red Cell Distribution Width 16.7 % (11.5-14.5) H Platelet Count 211 x10^3/uL (140-400) Neutrophils (%) (Auto) 44 % (31-73) Lymphocytes (%) (Auto) 43 % (24-48) Monocytes (%) (Auto) 10 % (0-9) H Eosinophils (%) (Auto) 2 % (0-3) Basophils (%) (Auto) 1 % (0-3) Neutrophils # (Auto) 1.5 x10^3/uL (1.8-7.7) L Lymphocytes # (Auto) 1.5 x10^3/uL (1.0-4.8) Monocytes # (Auto) 0.4 x10^3/uL (0.0-1.1) Eosinophils # (Auto) 0.1 x10^3/uL (0.0-0.7) Basophils # (Auto) 0.0 x10^3/uL (0.0-0.2) Platelet Estimate Adequate (ADEQUATE) Hypochromasia Mod Anisocytosis Slight Microcytosis Marked Sodium Level 130 mmol/L (136-145) L Potassium Level 4.7 mmol/L (3.5-5.1) Chloride Level 94 mmol/L (98-107) L Carbon Dioxide Level 24 mmol/L (21-32) Anion Gap 12 (6-14) Blood Urea Nitrogen 11 mg/dL (7-20) Creatinine 1.0 mg/dL (0.6-1.0) Estimated GFR (Cockcroft-Gault) 65.1 BUN/Creatinine Ratio 11 (6-20) Glucose Level 588 mg/dL (70-99) *H Calcium Level 8.6 mg/dL (8.5-10.1) Magnesium Level 1.6 mg/dL (1.8-2.4) L Total Bilirubin 0.3 mg/dL (0.2-1.0) Aspartate Amino Transferase (AST) 23 U/L (15-37) Alanine Aminotransferase (ALT) 20 U/L (14-59) Alkaline Phosphatase 373 U/L (46-116) H Total Protein 7.7 g/dL (6.4-8.2) Albumin 3.5 g/dL (3.4-5.0) Albumin/Globulin Ratio 0.8 (1.0-1.7) L Lipase 117 U/L (73-393) Acetone Level Neg (NEG) Glucose (Fingerstick) 334 mg/dL (70-99) H Laboratory Tests 04/12/19 02:30 Laboratory Tests 04/12/19 02:30 EKG EKG [] Radiology/Procedures Radiology/Procedures [] Course & Med Decision Making Course & Med Decision Making Pertinent Labs and Imaging studies reviewed. (See chart for details) Patient is a 28-year-old female who was found to have hyperglycemia, UTI. Patient was given IV fluid, insulin in the ER, her blood sugar improved. Patient was given first dose of Levaquin IV in the ER. She is not in DKA. Patient will be discharged home with Levaquin and Zofran. Dragon Disclaimer Dragon Disclaimer See above Departure Departure Impression: Primary Impression: UTI (urinary tract infection) Additional Impressions: Hyperglycemia Nausea & vomiting Disposition: 01 HOME, SELF-CARE Condition: IMPROVED Referrals: NO PCP (PCP) follow up with your doctor this week for reevaluation. Patient Instructions: Hyperglycemia, Nausea and Vomiting, Urinary Tract Infection Scripts Metoclopramide Hcl (REGLAN) 10 Mg Tablet 1 TAB PO QID PRN for NAUSEA, #30 TAB Prov: MANDY DINERO DO 04/12/19 Levofloxacin (LEVAQUIN) 500 Mg Tablet 1 TAB PO DAILY, #7 TAB Prov: MANDY DINERO DO 04/12/19 Problem Qualifiers MANDY DINERO DO Apr 12, 2019 03:51
[2019-04-12] MEDS: KETOROLAC 30 MG/ML VIAL. IV ONE (04:02)
[2019-04-12] MEDS ORDERED: METO10TA81 PO (04:48)
[2019-04-12] MEDS ORDERED: LEVO500T59 PO (04:48)
[2019-04-12 05:01] VITALS: BP 140/78
[2019-04-12] MEDS: METOCLOPRAMIDE HCL 10 MG/2 ML VIAL. IV ONE (05:02)
[2019-04-12] MEDS: MORPHINE SULFATE 4 MG/ML VIAL. IV ONE (05:02)
[2019-04-12] MEDS ORDERED: HEPARIN PF 500 UNIT/5 ML DISP.SYRIN. IV ONE (05:11)
[2019-04-12] MEDS: HEPARIN PF 500 UNIT/5 ML DISP.SYRIN. IV ONE (05:14)
== END 2019-04-12 05:21 | disposition home or self-care (01) ==
LOC: ER 01:50
DX: N39.0 Urinary tract infection, site not specified (principal); R11.2 Nausea with vomiting, unspecified; E10.65 Type 1 diabetes mellitus with hyperglycemia; Z98.890 Other specified postprocedural states; Z86.718 Personal history of other venous thrombosis and embolism; Z79.4 Long term (current) use of insulin; Z88.0 Allergy status to penicillin; Z88.1 Allergy status to other antibiotic agents; Z88.4 Allergy status to anesthetic agent; Z88.5 Allergy status to narcotic agent; Z91.041 Radiographic dye allergy status; Z88.8 Allergy status to other drugs, medicaments and biological substances
CPT/HCPCS: 36415; 36600; 80053; 81001; 81025; 82010; 82962; 83690; 83735; 85025; 87086; 96361; 96365; 96366; 96375; 99285; J1815; J1885; J1956; J2270; J2405; J2765; J7030

== ENCOUNTER 2019-05-09 01:06 | Emergency (ER) | payer SELFPAY ==
[~2019-05-09] VITALS: Ht 170.2 cm; Wt 86.2 kg
[~2019-05-09 01:06] MED LIST changes: -INSU100V SQ; +INSU100V6 SQ; +LINE600T12 PO; -LINE600T37 PO; +METO10TA81 PO
[2019-05-09 01:41] LABS: BILIRUBIN,URINE NEGATIVE (NEG); CLARITY,URINE CLEAR; COLOR,URINE YELLOW; NITRITE,URINE NEGATIVE (NEG); PH,URINE 6.5; PROTEIN,URINE NEGATIVE (NEG-TRACE); UROBILINOGEN,URINE 0.2 mg/dL (0.2 mg/dL)
[2019-05-09 01:42] LABS: BACTERIA,URINE FEW /HPF (0-FEW); SQUAMOUS EPITHELIAL CELL,UR FEW /LPF
[2019-05-09] MEDS ORDERED: diazePAM 5 MG TABLET PO ONE (01:45)
[2019-05-09] MEDS ORDERED: ONDANSETRON ODT 4 MG TAB.RAPDIS. PO ONE (01:45)
[2019-05-09 01:47] VITALS: BP 107/75
[2019-05-09] MEDS ORDERED: 0.9 % SOD CHL for STERILE FIELD 10 ML DISP.SYRIN. ONE (01:56)
[2019-05-09 02:41] LABS: BASO % 0 % (0-3); EOS # 0.1 x10^3/uL (0.0-0.7); EOS % 2 % (0-3); HEMATOCRIT 29.8 % (36.0-47.0); HEMOGLOBIN 9.4 g/dL (12.0-15.5); LYMPH # 1.3 x10^3/uL (1.0-4.8); LYMPH % 33 % (24-48); MEAN CORPUSCULAR HEMOGLOBIN 23 pg (25-35); MEAN CORPUSCULAR HGB CONC 32 g/dL (31-37); MEAN CORPUSCULAR VOLUME 72 fL (79-100); MONO # 0.3 x10^3/uL (0.0-1.1); MONO % 9 % (0-9); NEUT # 2.2 x10^3/uL (1.8-7.7); NEUT % 56 % (31-73); PLATELET COUNT 186 x10^3/uL (140-400); RED BLOOD COUNT 4.15 x10^6/uL (3.50-5.40); RED CELL DISTRIBUTION WIDTH 20.1 % (11.5-14.5)
[2019-05-09 03:00] LABS: CREATININE 0.8 mg/dL (0.6-1.0); GFR 84.2; POTASSIUM 4.1 mmol/L (3.5-5.1)
[2019-05-09 03:01] LABS: PLT ESTIMATE ADEQUATE (ADEQUATE)
[2019-05-09 03:02] LABS: ANISOCYTOSIS MOD; HYPOCHROMIA MOD; MICROCYTOSIS MOD; POLYCHROMASIA SLIGHT; SPHEROCYTES FEW
[2019-05-09 03:03] LABS: OVALOCYTES FEW
--- NOTE | 2019-05-09 03:16 | PHYS DOC ---
Past Medical History Past Medical History: Anemia, Anxiety, Diabetes-Type I, DVT, Ovarian Cyst Additional Past Medical Histor: VENTRAL HERNIA, L leg clot Past Surgical History: Other Additional Past Surgical Histo: R fallopian, L ovary cyst removed,HERNIA REPAIR, I&D L ARM, left thumb amp Alcohol Use: None Drug Use: None Adult General Chief Complaint Chief Complaint: MULTIPLE COMPLAINTS HPI HPI Patient is a 28-year-old female multiple medical problems including poorly con trolled type 1 diabetes who presents with concern that a bladder stimulator that she had implanted recently may be infected. She feels like it's swollen and there is some redness around it. She denies any fever. However she does state that her blood sugar has been high at home. She has had some nausea but no fever. She states she gets like this quite often. She tried to follow with the provider that put her bladder stimulator in but he is out of the office.[] Review of Systems Review of Systems Constitutional: Denies fever or chills [] Eyes: Denies change in visual acuity, redness, or eye pain [] HENT: Denies nasal congestion or sore throat [] Respiratory: Denies cough or shortness of breath [] Cardiovascular: No additional information not addressed in HPI [] GI: Denies abdominal pain, nausea, vomiting, bloody stools or diarrhea [] : Denies dysuria or hematuria [] Musculoskeletal: Denies back pain or joint pain [] Integument: Some redness around the implant site[] Neurologic: Denies headache, focal weakness or sensory changes [] Endocrine: Denies polyuria or polydipsia [] All other systems were reviewed and found to be within normal limits, except as documented in this note. Current Medications Current Medications Current Medications Medications (Trade) Dose Ordered Sig/[facility] Start Time Stop Time Status Last Admin Dose Admin Diazepam (Valium) 5 mg 1X ONCE 05/09/19 01:45 05/09/19 01:46 DC 05/09/19 01:59 5 MG Ondansetron HCl (Zofran Odt) 4 mg 1X ONCE 05/09/19 01:45 05/09/19 01:46 DC 05/09/19 01:59 4 MG Sodium Chloride (NORMAL SALINE FLUSH for STERILE FIELD) 10 ml STK-MED ONCE 05/09/19 01:56 05/09/19 01:57 DC Allergies Allergies Allergies Coded Allergies Type Severity Reaction Last Updated Verified Penicillins Allergy Severe ANAPHYLAXIS 03/19/19 Yes doxycycline Allergy Intermediate 03/19/19 Yes fentanyl Allergy Intermediate 03/19/19 Yes I S O L A T I O N *CONTACT* Allergy Unknown 04/10/19 Yes cefepime Adverse Reaction Intermediate "makes her feel sick" 03/19/19 Yes hydrocodone Adverse Reaction Intermediate itching 03/19/19 Yes Physical Exam Physical Exam Constitutional: Well developed, well nourished, mild distress] HENT: Normocephalic, atraumatic, bilateral external ears normal, oropharynx moist, no oral exudates, nose normal. [] Eyes: PERRLA, EOMI, conjunctiva normal, no discharge. [] Neck: Normal range of motion, no tenderness, supple, no stridor. [] Cardiovascular:Heart rate regular rhythm, no murmur [] Lungs & Thorax: Bilateral breath sounds clear to auscultation [] Abdomen: Bowel sounds normal, soft, no tenderness, no masses, no pulsatile masses. [] Skin: There is a wire that enters her low back that is attached to this bladder stimulator there is no redness or any sign of infection fact there is no swelling. [] Back: No tenderness, no CVA tenderness. [] Extremities: No tenderness, no cyanosis, no clubbing, ROM intact, no edema. [] Neurologic: Alert and oriented X 3, normal motor function, normal sensory function, no focal deficits noted. [] Psychologic: Extremely anxious. [] Current Patient Data Vital Signs Vital Signs Date Time Temp Pulse Resp B/P (MAP) Pulse Ox O2 Delivery O2 Flow Rate FiO2 05/09/19 01:20 98.0 55 22 122/72 (89) 94 Room Air 98.0 Lab Values Laboratory Tests Test 05/09/19 01:20 05/09/19 02:15 Urine Collection Type Unknown Urine Color Yellow Urine Clarity Clear Urine pH 6.5 Urine Specific [place] 1.025 Urine Protein Negative mg/dL (NEG-TRACE) Urine Glucose (UA) >=1000 mg/dL (NEG) Urine Ketones (Stick) Negative mg/dL (NEG) Urine Blood Small (NEG) Urine Nitrite Negative (NEG) Urine Bilirubin Negative (NEG) Urine Urobilinogen Dipstick 0.2 mg/dL (0.2 mg/dL) Urine Leukocyte Esterase Negative (NEG) Urine RBC 3-5 /HPF (0-2) Urine WBC 5-10 /HPF (0-4) Urine Squamous Epithelial Cells Few /LPF Urine Bacteria Few /HPF (0-FEW) Urine Mucus Slight /LPF White Blood Count 4.0 x10^3/uL (4.0-11.0) Red Blood Count 4.15 x10^6/uL (3.50-5.40) Hemoglobin 9.4 g/dL (12.0-15.5) L Hematocrit 29.8 % (36.0-47.0) L Mean Corpuscular Volume 72 fL (79-100) L Mean Corpuscular Hemoglobin 23 pg (25-35) L Mean Corpuscular Hemoglobin Concent 32 g/dL (31-37) Red Cell Distribution Width 20.1 % (11.5-14.5) H Platelet Count 186 x10^3/uL (140-400) Neutrophils (%) (Auto) 56 % (31-73) Lymphocytes (%) (Auto) 33 % (24-48) Monocytes (%) (Auto) 9 % (0-9) Eosinophils (%) (Auto) 2 % (0-3) Basophils (%) (Auto) 0 % (0-3) Neutrophils # (Auto) 2.2 x10^3/uL (1.8-7.7) Lymphocytes # (Auto) 1.3 x10^3/uL (1.0-4.8) Monocytes # (Auto) 0.3 x10^3/uL (0.0-1.1) Eosinophils # (Auto) 0.1 x10^3/uL (0.0-0.7) Basophils # (Auto) 0.0 x10^3/uL (0.0-0.2) Platelet Estimate Adequate (ADEQUATE) Polychromasia Slight Hypochromasia Mod Basophilic Stippling Present Anisocytosis Mod Microcytosis Mod Spherocytes Few Ovalocytes Few Sodium Level 130 mmol/L (136-145) L Potassium Level 4.1 mmol/L (3.5-5.1) Chloride Level 94 mmol/L (98-107) L Carbon Dioxide Level 26 mmol/L (21-32) Anion Gap 10 (6-14) Blood Urea Nitrogen 8 mg/dL (7-20) Creatinine 0.8 mg/dL (0.6-1.0) Estimated GFR (Cockcroft-Gault) 84.2 Glucose Level 522 mg/dL (70-99) *H Calcium Level 9.0 mg/dL (8.5-10.1) Laboratory Tests 05/09/19 02:15 Laboratory Tests 05/09/19 02:15 EKG EKG [] Radiology/Procedures Radiology/Procedures [] Course & Med Decision Making Course & Med Decision Making Pertinent Labs and Imaging studies reviewed. (See chart for details) [ED course: Evaluation reveals an extremely anxious 28-year-old female with multiple complaints this evening. I do not believe that there is any evidence of infection in her body. She has not had any fever. She was extraordinarily anxious I did give her a Valium and Zofran which seemed to help calm her down. She historically has had very elevated blood sugars also gave her some insulin here of encouraged her to drink plenty of fluids at home. She is not in ketoacidosis.] Dragon Disclaimer Dragon Disclaimer This electronic medical record was generated, in whole or in part, using a voice recognition dictation system. Departure Departure Impression: Primary Impression: Elevated blood sugar Additional Impression: Nausea & vomiting Disposition: 01 HOME, SELF-CARE Condition: STABLE Referrals: NO PCP (PCP) Patient Instructions: Hyperglycemia, Type 1 Diabetes Mellitus, Adult Additional Instructions: Take medication as directed. Return to the emergency department with any new or concerning symptoms Problem Qualifiers Additional Impression: Nausea & vomiting Vomiting type: unspecified Vomiting Intractability: unspecified Qualified Codes: R11.2 - Nausea with vomiting, unspecified VAMSHI MONTENEGRO DO May 09, 2019 03:16
[2019-05-09] MEDS ORDERED: INSULIN REGULAR 100 UNIT/ML 3ML VIAL. SQ ONE (03:30)
[2019-05-09] MEDS ORDERED: HEPARIN PF 500 UNIT/5 ML DISP.SYRIN. IVP ONE (03:45)
[2019-05-09] MEDS ORDERED: MORPHINE SULFATE 4 MG/ML VIAL. IV ONE (03:45)
== END 2019-05-09 04:19 | disposition home or self-care (01) ==
LOC: ER 01:06
DX: E10.65 Type 1 diabetes mellitus with hyperglycemia (principal); R11.2 Nausea with vomiting, unspecified; F41.9 Anxiety disorder, unspecified; Z86.718 Personal history of other venous thrombosis and embolism; Z88.0 Allergy status to penicillin; Z88.8 Allergy status to other drugs, medicaments and biological substances; Z88.5 Allergy status to narcotic agent; Z91.041 Radiographic dye allergy status
CPT/HCPCS: 36415; 80048; 81001; 85025; 87086; 96372; 96374; 96375; 99284; J1815; J2270; Q0162; 87186

== ENCOUNTER 2019-05-20 01:25 | Emergency (ER) | payer SELFPAY ==
[~2019-05-20] VITALS: Ht 170.2 cm; Wt 86.2 kg
[2019-05-20 01:30] VITALS: BP 122/69
--- NOTE | 2019-05-20 02:06 | PHYS DOC ---
Past Medical History Past Medical History: Anemia, Anxiety, Diabetes-Type I, DVT, Ovarian Cyst Additional Past Medical Histor: VENTRAL HERNIA, L leg clot Past Surgical History: Other Additional Past Surgical Histo: R fallopian, L ovary cyst removed,HERNIA REPAIR, I&D L ARM, left thumb amp Alcohol Use: None Drug Use: None Adult General Chief Complaint Chief Complaint: POST-OP PROBLEM HPI HPI 28-year-old female presents to the emergency department with complaints of wound concern. Patient was seen at [facility] approximately 2 weeks ago bladder stimulator placed. She still has danica to her back. She is concerned about a bladder stimulator itself. She states is painful. There is no obvious drainage appreciated on examination. No fever appreciated. Patient claims she was not provided with any discharge suctions on how to take care of stimulator or when to follow-up versus other. Discussed with patient there is no urology providers at this facility and given the findings on exam his is not a urologic emergency. All other ROS negative unless Review of Systems Review of Systems See Above Allergies Allergies Allergies Coded Allergies Type Severity Reaction Last Updated Verified Penicillins Allergy Severe ANAPHYLAXIS 03/19/19 Yes doxycycline Allergy Intermediate 03/19/19 Yes fentanyl Allergy Intermediate 03/19/19 Yes I S O L A T I O N *CONTACT* Allergy Unknown 04/10/19 Yes cefepime Adverse Reaction Intermediate "makes her feel sick" 03/19/19 Yes hydrocodone Adverse Reaction Intermediate itching 03/19/19 Yes Physical Exam Physical Exam See Above Constitutional: Well developed, well nourished, no acute distress, non-toxic appearance. [] Cardiovascular:Heart rate regular rhythm, no murmur [] Lungs & Thorax: Bilateral breath sounds clear to auscultation [] Skin: Warm, dry, no erythema, no rash. Surgical wound appreciated to left back, danica removed. Evidence of drainage. Back: No tenderness, no CVA tenderness. [] Extremities: No tenderness, no edema. [] Neurologic: Alert and oriented X 3, no focal deficits noted. [] Psychologic: Affect normal, judgement normal, mood normal. [] Current Patient Data Lab Values Laboratory Tests Test 05/20/19 01:56 Glucose (Fingerstick) 463 mg/dL (70-99) H EKG EKG [] Radiology/Procedures Radiology/Procedures [] Course & Med Decision Making Course & Med Decision Making Pertinent Labs and Imaging studies reviewed. (See chart for details) [] 28-year-old female presents to the emergency department with complaints of wound concern. Patient was seen at [facility] approximately 2 weeks ago bladder stimulator placed. She still has danica to her back. She is concerned about a bladder stimulator itself. She states is painful. There is no obvious drainage appreciated on examination. No fever appreciated. Patient claims she was not provided with any discharge suctions on how to take care of stimulator or when to follow-up versus other. Discussed with patient there is no urology providers at this facility and given the findings on exam his is not a urologic emergency. Dragon Disclaimer Dragon Disclaimer This electronic medical record was generated, in whole or in part, using a voice recognition dictation system. Departure Departure Impression: Primary Impression: Removal of staple Additional Impression: Post-operative complication Disposition: 01 HOME, SELF-CARE Condition: STABLE Patient Instructions: Wound Care, [id number] Additional Instructions: Recommend calling urology at [facility] to get in to see physician regarding bladder stimulator No evidence of wound infection appreciated on exam BS [id number] here in ER Problem Qualifiers PETER WONG MD May 20, 2019 02:06
== END 2019-05-20 02:35 | disposition home or self-care (01) ==
LOC: ER 01:25
DX: L76.82 Other postprocedural complications of skin and subcutaneous tissue (principal); F41.9 Anxiety disorder, unspecified; E10.9 Type 1 diabetes mellitus without complications; Z86.718 Personal history of other venous thrombosis and embolism; Z88.0 Allergy status to penicillin; Z88.5 Allergy status to narcotic agent; Z88.8 Allergy status to other drugs, medicaments and biological substances; Z91.041 Radiographic dye allergy status
CPT/HCPCS: 82962; 99283

== ENCOUNTER 2019-06-03 16:45 | Inpatient (IN) | payer SELFPAY ==
[~2019-06-03] VITALS: Ht 170.2 cm; Wt 83.6 kg
[2019-06-03 17:23] LABS: BILIRUBIN,URINE NEGATIVE (NEG); CLARITY,URINE CLEAR; COLOR,URINE YELLOW; NITRITE,URINE NEGATIVE (NEG); PH,URINE 6.5; PROTEIN,URINE NEGATIVE (NEG-TRACE); UROBILINOGEN,URINE 0.2 mg/dL (0.2 mg/dL)
[2019-06-03 17:27] LABS: BASE EXCESS ABG -3 mmol/L (-3-3); HCO3 ABG 20 mmol/L (21-28); PCO2 ABG 32 mmHg (35-46); PO2 ABG 79 mmHg (85-108); SAT O2 ABG 95 % (92-99)
[2019-06-03 17:28] LABS: BARBITURATES NEG (NEG); BENZODIAZEPINES NEG (NEG); CANNABINOIDS NEG (NEG); COCAINE NEG (NEG); METHADONE NEG (NEG); OPIATES NEG (NEG); PHENCYCLIDINE NEG (NEG)
[2019-06-03 17:29] LABS: AMPHETAMINE/METHAMPHETAMINE NEG (NEG)
[2019-06-03] MEDS ORDERED: INSULIN REGULAR 100 UNIT/ML 3ML VIAL. IV ONE (17:30)
[2019-06-03] MEDS ORDERED: ONDANSETRON PF 4 MG/2 ML VIAL. IV ONE ×2 (17:30→19:15)
[2019-06-03] MEDS ORDERED: IV NORMAL SALINE 1000ML BAG 1,000 ML IV SCH (17:30)
[2019-06-03 17:31] LABS: FIO2 ABG 21% RA
[2019-06-03 17:35] LABS: BACTERIA,URINE FEW /HPF (0-FEW); RBC,URINE >40 /HPF (0-2); SQUAMOUS EPITHELIAL CELL,UR MANY /LPF; YEAST,URINE PRESENT /HPF
--- NOTE | 2019-06-03 17:36 | PHYS DOC ---
Past Medical History Past Medical History: Anemia, Anxiety, Diabetes-Type I, DVT, Ovarian Cyst Additional Past Medical Histor: VENTRAL HERNIA, L leg clot (AKBAR CHILDERS MD) Past Surgical History: Other Additional Past Surgical Histo: R fallopian, L ovary cyst removed,HERNIA REPAIR, I&D L ARM, left thumb amp (AKBAR CHILDERS MD) Alcohol Use: None Drug Use: None (AKBAR CHILDERS MD) Adult General Chief Complaint Chief Complaint: ABDOMINAL PAIN HPI HPI Patient is a 28 year old female with history of type 1 diabetes, anxiety, anemia and frequent emergency room visits who presents with complaining of abdominal pain and nausea and vomiting. Patient complaining of gradual onset of right upper quadrant constant sharp pain with episodes of severe pain for the last 5 days and rated her pain 10 over 10. Patient complaining of constant n ausea and frequent episodes of nonbloody vomiting and vomiting for the last 2 days and states she vomited 6 times today. Patient complaining of anorexia and one episode of fever up to 100 yesterday. Patient denies urinary symptom, diarrhea, , sick contact, history of the same problem, using drugs or alcohol. Patient states she did not miss insulin even she was not able to the last couple days but her blood sugar read as "high" at home. (AKBAR CHILDERS MD) Review of Systems Review of Systems Constitutional: Denies fever or chills [] Eyes: Denies change in visual acuity, redness, or eye pain [] HENT: Denies nasal congestion or sore throat [] Respiratory: Denies cough or shortness of breath [] Cardiovascular: No additional information not addressed in HPI [] GI: Reports abdominal pain, nausea, vomiting, denies bloody stools or diarrhea [] : Denies dysuria or hematuria [] Musculoskeletal: Denies back pain or joint pain [] Integument: Denies rash or skin lesions [] Neurologic: Denies headache, focal weakness or sensory changes [] Endocrine: Denies polyuria or polydipsia [] All other systems were reviewed and found to be within normal limits, except as documented in this note. (AKBAR CHILDERS MD) Current Medications Current Medications Current Medications Medications (Trade) Dose Ordered Sig/Naya Start Time Stop Time Status Last Admin Dose Admin Insulin Human Regular (HumuLIN R VIAL) 10 unit 1X ONCE 06/03/19 17:30 06/03/19 17:31 DC 06/03/19 17:59 10 UNIT Morphine Sulfate (Morphine Sulfate) 2 mg 1X ONCE 06/03/19 17:45 06/03/19 17:46 DC 06/03/19 18:00 2 MG Ondansetron HCl (Zofran) 4 mg 1X ONCE 06/03/19 19:15 06/03/19 19:16 DC 06/03/19 19:15 4 MG Sodium Chloride 1,000 ml @ 1,000 mls/hr Q1H 06/03/19 17:30 06/03/19 18:29 DC 06/03/19 17:56 1,000 MLS/HR (PETER WONG MD) Allergies Allergies Allergies Coded Allergies Type Severity Reaction Last Updated Verified Penicillins Allergy Severe ANAPHYLAXIS 03/19/19 Yes doxycycline Allergy Intermediate 03/19/19 Yes fentanyl Allergy Intermediate 03/19/19 Yes I S O L A T I O N *CONTACT* Allergy Unknown 04/10/19 Yes cefepime Adverse Reaction Intermediate "makes her feel sick" 03/19/19 Yes hydrocodone Adverse Reaction Intermediate itching 03/19/19 Yes (PETER WONG MD) Physical Exam Physical Exam Constitutional: Well nourished, mild distress, non-toxic appearance, anxious and agitated. [] HENT: Normocephalic, atraumatic, oropharynx dry, no oral exudates, nose normal. [] Eyes: PERRLA, EOMI, conjunctiva normal, no discharge. [] Neck: Normal range of motion, no tenderness, supple, no stridor. [] Cardiovascular: Tachycardia, no murmur [] Lungs & Thorax: Bilateral breath sounds clear to auscultation [] Abdomen: Bowel sounds normal, soft, no tenderness, no masses, no pulsatile masses. [] Skin: Warm, dry, no erythema, no rash. [] Back: No tenderness, no CVA tenderness. [] Extremities: No tenderness, no cyanosis, no clubbing, ROM intact, no edema. [] Neurologic: Alert and oriented X 3, normal motor function, normal sensory function, no focal deficits noted. [] Psychologic: Affect anxious, mood normal. [] (AKBAR CHILDERS MD) Current Patient Data Vital Signs Vital Signs Date Time Temp Pulse Resp B/P (MAP) Pulse Ox O2 Delivery O2 Flow Rate FiO2 06/03/19 18:30 19 99 Room Air 06/03/19 17:12 98.4 114 121/76 (91) 98.4 (PETER WONG MD) Lab Values Laboratory Tests Test 06/03/19 17:00 06/03/19 17:01 06/03/19 17:08 06/03/19 17:09 Glucose (Fingerstick) 547 mg/dL (70-99) *H Urine Collection Type Void Urine Color Yellow Urine Clarity Clear Urine pH 6.5 Urine Specific [place] 1.025 Urine Protein Negative mg/dL (NEG-TRACE) Urine Glucose (UA) >=1000 mg/dL (NEG) Urine Ketones (Stick) Negative mg/dL (NEG) Urine Blood Large (NEG) Urine Nitrite Negative (NEG) Urine Bilirubin Negative (NEG) Urine Urobilinogen Dipstick 0.2 mg/dL (0.2 mg/dL) Urine Leukocyte Esterase Negative (NEG) Urine RBC >40 /HPF (0-2) Urine WBC 1-4 /HPF (0-4) Urine Squamous Epithelial Cells Many /LPF Urine Bacteria Few /HPF (0-FEW) Urine Yeast Present /HPF Urine Opiates Screen Neg (NEG) Urine Methadone Screen Neg (NEG) Urine Barbiturates Neg (NEG) Urine Phencyclidine Screen Neg (NEG) Urine Amphetamine/Methamphetamine Neg (NEG) Urine Benzodiazepines Screen Neg (NEG) Urine Cocaine Screen Neg (NEG) Urine Cannabinoids Screen Neg (NEG) Urine Ethyl Alcohol Neg (NEG) POC Urine HCG, Qualitative Hcg negative (Negative) O2 Saturation 95 % (92-99) Arterial Blood pH 7.43 (7.35-7.45) Arterial Blood pCO2 at Patient Temp 32 mmHg (35-46) L Arterial Blood pO2 at Patient Temp 79 mmHg (85-108) L Arterial Blood HCO3 20 mmol/L (21-28) L Arterial Blood Base Excess -3 mmol/L (-3-3) FiO2 21% ra Test 06/03/19 17:40 06/03/19 19:07 White Blood Count 3.2 x10^3/uL (4.0-11.0) L Red Blood Count 3.91 x10^6/uL (3.50-5.40) Hemoglobin 8.4 g/dL (12.0-15.5) L Hematocrit 27.2 % (36.0-47.0) L Mean Corpuscular Volume 70 fL (79-100) L Mean Corpuscular Hemoglobin 22 pg (25-35) L Mean Corpuscular Hemoglobin Concent 31 g/dL (31-37) Red Cell Distribution Width 18.2 % (11.5-14.5) H Platelet Count 188 x10^3/uL (140-400) Neutrophils (%) (Auto) 52 % (31-73) Lymphocytes (%) (Auto) 40 % (24-48) Monocytes (%) (Auto) 8 % (0-9) Eosinophils (%) (Auto) 1 % (0-3) Basophils (%) (Auto) 0 % (0-3) Neutrophils # (Auto) 1.7 x10^3/uL (1.8-7.7) L Lymphocytes # (Auto) 1.3 x10^3/uL (1.0-4.8) Monocytes # (Auto) 0.2 x10^3/uL (0.0-1.1) Eosinophils # (Auto) 0.0 x10^3/uL (0.0-0.7) Basophils # (Auto) 0.0 x10^3/uL (0.0-0.2) Platelet Estimate Adequate (ADEQUATE) Hypochromasia Slight Anisocytosis Slight Microcytosis Marked Target Cells Occ Ovalocytes Occ Schistocytes Occ Sodium Level 134 mmol/L (136-145) L Potassium Level 4.1 mmol/L (3.5-5.1) Chloride Level 99 mmol/L (98-107) Carbon Dioxide Level 25 mmol/L (21-32) Anion Gap 10 (6-14) Blood Urea Nitrogen 7 mg/dL (7-20) Creatinine 0.7 mg/dL (0.6-1.0) Estimated GFR (Cockcroft-Gault) 98.3 BUN/Creatinine Ratio 10 (6-20) Glucose Level 563 mg/dL (70-99) *H Lactic Acid Level 2.4 mmol/L (0.4-2.0) H Calcium Level 8.3 mg/dL (8.5-10.1) L Magnesium Level 1.4 mg/dL (1.8-2.4) L Total Bilirubin 0.3 mg/dL (0.2-1.0) Aspartate Amino Transferase (AST) 23 U/L (15-37) Alanine Aminotransferase (ALT) 21 U/L (14-59) Alkaline Phosphatase 540 U/L (46-116) H Total Protein 7.1 g/dL (6.4-8.2) Albumin 2.8 g/dL (3.4-5.0) L Albumin/Globulin Ratio 0.7 (1.0-1.7) L Lipase 159 U/L (73-393) Glucose (Fingerstick) 429 mg/dL (70-99) H Laboratory Tests 06/03/19 17:40 Laboratory Tests 06/03/19 17:40 (PETER WONG MD) EKG EKG [] (AKBAR CHILDERS MD) Radiology/Procedures Radiology/Procedures [] (AKBAR CHILDERS MD) Course & Med Decision Making Course & Med Decision Making Pertinent Labs are pending. Evaluation of patient in ER showed 28-year-old male patient with type 1 diabetes mellitus and complaining of nausea and vomiting and abdominal pain and frequent emergency room visits. Patient had blood sugar of 545 and ABG did not show DKA. IV fluid and Zofran and insulin was ordered. Labs is pending. Patient care transferred to Dr. Wong at 1800. (AKBAR CHILDERS MD) Course & Med Decision Making Labs reviewed, sitting 134, blood sugar 563, improved to 400s. No evidence of acute DKA. Lactic acid 2.4. Patient with intractable nausea vomiting as well as pain. Will discuss admission with hospitalist. Will continue IVF (PETER WONG MD) Dragon Disclaimer Dragon Disclaimer This electronic medical record was generated, in whole or in part, using a voice recognition dictation system. (AKBAR CHILDERS MD) Departure Departure Impression: Primary Impression: Nausea & vomiting Additional Impressions: Hyperglycemia Abdominal pain Disposition: ADMITTED INPATIENT Admitting Physician: [facility] (PETER WONG MD) Condition: STABLE Referrals: NO PCP (PCP) Problem Qualifiers Primary Impression: Nausea & vomiting Vomiting type: unspecified Vomiting Intractability: unspecified Qualified Codes: R11.2 - Nausea with vomiting, unspecified Additional Impressions: Abdominal pain Abdominal location: unspecified location Qualified Codes: R10.9 - Unspecified abdominal pain AKBAR CHILDERS MD Jun 03, 2019 17:36 PETER WONG MD Jun 03, 2019 19:42
[2019-06-03] MEDS ORDERED: MORPHINE SULFATE 2 MG/ML VIAL. IV ONE (17:45)
[2019-06-03 17:58] LABS: BASO % 0 % (0-3); EOS % 1 % (0-3); HEMATOCRIT 27.2 % (36.0-47.0); HEMOGLOBIN 8.4 g/dL (12.0-15.5); LYMPH # 1.3 x10^3/uL (1.0-4.8); LYMPH % 40 % (24-48); MEAN CORPUSCULAR HEMOGLOBIN 22 pg (25-35); MEAN CORPUSCULAR HGB CONC 31 g/dL (31-37); MEAN CORPUSCULAR VOLUME 70 fL (79-100); MONO # 0.2 x10^3/uL (0.0-1.1); MONO % 8 % (0-9); NEUT # 1.7 x10^3/uL (1.8-7.7); NEUT % 52 % (31-73); PLATELET COUNT 188 x10^3/uL (140-400); RED BLOOD COUNT 3.91 x10^6/uL (3.50-5.40); RED CELL DISTRIBUTION WIDTH 18.2 % (11.5-14.5); WHITE BLOOD COUNT 3.2 x10^3/uL (4.0-11.0)
[2019-06-03 18:19] LABS: ALBUMIN 2.8 g/dL (3.4-5.0); ALBUMIN/GLOBULIN RATIO 0.7 (1.0-1.7); CALCIUM 8.3 mg/dL (8.5-10.1); CREATININE 0.7 mg/dL (0.6-1.0); GFR 98.3; MAGNESIUM 1.4 mg/dL (1.8-2.4); POTASSIUM 4.1 mmol/L (3.5-5.1); TOTAL BILIRUBIN 0.3 mg/dL (0.2-1.0); TOTAL PROTEIN 7.1 g/dL (6.4-8.2)
[2019-06-03 18:51] LABS: ANISOCYTOSIS SLIGHT; HYPOCHROMIA SLIGHT; MICROCYTOSIS MARKED; OVALOCYTES OCC; PLT ESTIMATE ADEQUATE (ADEQUATE); TARGET CELLS OCC
[2019-06-03 18:52] LABS: SCHISTOCYTES OCC
[2019-06-03] MEDS ORDERED: ACETAMINOPHEN 325 MG TABLET. PO PRN (19:45)
[2019-06-03] MEDS ORDERED: ONDANSETRON PF 4 MG/2 ML VIAL. IV PRN (19:45)
[2019-06-03] MEDS ORDERED: IV NORMAL SALINE 1000ML BAG 1,000 ML IV ONE (19:45)
[2019-06-03] MEDS: MORPHINE SULFATE 2 MG/ML VIAL. IV PRN ×2 (21:01→23:33)
[2019-06-03] MEDS ORDERED: DIAZ10TA2 PO (21:11)
[2019-06-03] MEDS ORDERED: INSULIN GLARGINE SYRINGE. SQ SCH (22:15)
[2019-06-03 23:00] VITALS: BP 151/82
[2019-06-03] MEDS: QUEtiapine 100 MG TABLET. PO SCH (23:33)
[2019-06-03] MEDS ORDERED: INSU100I13 SQ (23:42)
[2019-06-04 03:00] VITALS: BP 124/89
[2019-06-04] MEDS: MORPHINE SULFATE 2 MG/ML VIAL. IV PRN ×7 (03:44→18:40)
[2019-06-04 07:00] VITALS: BP 124/74
[2019-06-04] MEDS: INSULIN GLARGINE SYRINGE. SQ SCH ×2 (08:00→20:55)
[2019-06-04] MEDS: INSULIN LISPRO 300 UNITS/3 ML VIAL. SQ SCH ×5 (08:00→18:42)
[2019-06-04] MEDS ORDERED: DEXTROSE 50% 25 GM / 50ML DISP.SYRIN. IV PRN (08:15)
[2019-06-04] MEDS ORDERED: ONDANSETRON ODT 4 MG TAB.RAPDIS. PO PRN (08:15)
[2019-06-04] MEDS ORDERED: IV NORMAL SALINE 1000ML BAG 1,000 ML IV ONE (08:30)
[2019-06-04] MEDS ORDERED: INSULIN GLARGINE HUM REC ANLOG 80 UNIT SQ SCH (09:00)
[2019-06-04] MEDS ORDERED: NON FORMULARY ITEM (Insulin Glargine,Hum.rec.anlog (Lantus Solostar) 60 UNIT) SQ SCH (09:00)
--- NOTE | 2019-06-04 09:24 | PDOC1 ---
History and Physical Date of Admission Date of Admission DATE: 06/04/19 TIME: 09:20 Identification/Chief Complaint Chief Complaint n.v.abd pain Source Source: Caregiver, Chart review, Patient History of Present Illness History of Present Illness Janee brown for the same issue, DM gastroparesis, n,.v. abd pain few days but lytes om at ER,She has lost many lbs from 240 t0 180 lbs bec she "cant eat" BS high so admitted HONK, Triggers sepsis but urine this time actually clean, hx MDR uti or even VRE i think, HAs not touched breakfast LAst hgba1c 09/2018 7.9 Past Medical History Cardiovascular: HTN Pulmonary: Bronchitis Psych: Anxiety Rheumatologic: No pertinent hx Endocrine: Diabetes, Other Past Surgical History Past Surgical History: Appendectomy, Cholecystectomy, , Hernia Repair, Other Family History Family History: Hypertension, Other Family History: Parent Social History Smoke: No ALCOHOL: none Drugs: None Current Problem List Problem List Problems Medical Problems: (1) Abdominal pain Status: Acute (2) Hyperglycemia Status: Acute (3) Nausea & vomiting Status: Acute Current Medications Current Medications Current Medications Sodium Chloride 1,000 ml @ 1,000 mls/hr Q1H IV Last administered on 06/03/19at 17:56; Start 06/03/19 at 17:30; Stop 06/03/19 at 18:29; Status DC Ondansetron HCl (Zofran) 4 mg 1X ONCE IV Last administered on 06/03/19at 17:57; Start 06/03/19 at 17:30; Stop 06/03/19 at 17:31; Status DC Insulin Human Regular (HumuLIN R VIAL) 10 unit 1X ONCE IV Last administered on 06/03/19at 17:59; Start 06/03/19 at 17:30; Stop 06/03/19 at 17:31; Status DC Morphine Sulfate (Morphine Sulfate) 2 mg 1X ONCE IV Last administered on 06/03/19at 18:00; Start 06/03/19 at 17:45; Stop 06/03/19 at 17:46; Status DC Ondansetron HCl (Zofran) 4 mg 1X ONCE IV Last administered on 06/03/19at 19:15; Start 06/03/19 at 19:15; Stop 06/03/19 at 19:16; Status DC Ondansetron HCl (Zofran) 4 mg PRN Q8HRS PRN IV NAUSEA/VOMITING; Start 06/03/19 at 19:45; Stop 06/04/19 at 08:16; Status DC Morphine Sulfate (Morphine Sulfate) 2 mg PRN Q2HR PRN IV PAIN Last administered on 06/04/19at 07:39; Start 06/03/19 at 19:45; Stop 06/04/19 at 19:44 Acetaminophen (Tylenol) 650 mg PRN Q4HRS PRN PO FEVER; Start 06/03/19 at 19:45; Stop 06/04/19 at 19:44 Sodium Chloride 1,000 ml @ 1,000 mls/hr 1X ONCE IV ; Start 06/03/19 at 19:45; Stop 06/03/19 at 20:44; Status DC Diazepam (Valium) 5 mg PRN TID PRN PO ANXIETY / AGITATION; Start 06/03/19 at 22:00 Ferrous Sulfate (Feosol) 325 mg BIDAFTMEAL PO ; Start 06/04/19 at 09:00 Insulin Human Lispro (HumaLOG) 25 units TIDWMEALS SQ Last administered on 06/04/19at 08:00; Start 06/04/19 at 08:00 Quetiapine Fumarate (SEROquel) 100 mg QHS PO Last administered on 06/03/19at 23:33; Start 06/03/19 at 22:00 Non-Formulary Medication (Insulin Glargine,Hum.rec.anlog (Lantus Solostar)) 80 units BID SQ ; Start 06/04/19 at 09:00; Status UNV Insulin Glargine (Lantus Syringe) 80 unit BID SQ ; Start 06/03/19 at 22:15; Stop 06/03/19 at 23:47; Status DC Non-Formulary Medication (Insulin Glargine,Hum.rec.anlog (Lantus Solostar)) 60 unit BID SQ ; Start 06/04/19 at 09:00; Status UNV Insulin Glargine (Lantus Syringe) 60 unit BID SQ Last administered on 06/04/19at 08:00; Start 06/04/19 at 09:00 Ondansetron HCl (Zofran) 4 mg PRN Q6HRS PRN IV NAUSEA/VOMITING; Start 06/04/19 at 08:15 Insulin Human Lispro (HumaLOG) 0-9 UNITS TIDWMEALS SQ ; Start 06/04/19 at 12:00 Dextrose (Dextrose 50%-Water Syringe) 12.5 gm PRN Q15MIN PRN IV SEE COMMENTS; Start 06/04/19 at 08:15 Bethanechol Chloride (Urecholine) 25 mg TIDAC PO ; Start 06/04/19 at 08:30 Lactobacillus Rhamnosus (Culturelle) 1 cap BID PO ; Start 06/04/19 at 09:00 Metoclopramide HCl (Reglan) 10 mg QID PRN PO NAUSEA; Start 06/04/19 at 08:15 Ondansetron HCl (Zofran Odt) 4 mg PRN Q6HRS PRN PO NAUSEA/VOMITING; Start 06/04/19 at 08:15 Sodium Chloride 1,000 ml @ 125 mls/hr 1X ONCE IV ; Start 06/04/19 at 08:30; Stop 06/04/19 at 16:29 Active Scripts Active Culturelle (Lactobacillus Rhamnosus Gg) 1 Each Cap.sprink 1 Cap PO BID 14 Days Urecholine (Bethanechol Chloride) 25 Mg Tablet 25 Mg PO TIDAC 14 Days Reglan (Metoclopramide Hcl) 10 Mg Tablet 1 Tab PO QID PRN Humalog (Insulin Lispro) 100 Unit/1 Ml Insuln.pen 25 Units SQ TIDWMEALS 30 Days Ondansetron Odt (Ondansetron) 4 Mg Tab.rapdis 4 Mg PO PRN Q6HRS PRN 10 Days Reported Lantus Solostar (Insulin Glargine,Hum.rec.anlog) 100 Unit/1 Ml Insuln.pen 60 Unit SQ BID Valium (Diazepam) 10 Mg Tablet 5 Mg PO TID PRN Seroquel (Quetiapine Fumarate) 100 Mg Tablet 1 Tab PO QHS Ferrous Sulfate 325 Mg Tablet 325 Mg PO BID Allergies Allergies: Coded Allergies: Penicillins (Verified Allergy, Severe, ANAPHYLAXIS, 03/19/19) doxycycline (Verified Allergy, Intermediate, 03/19/19) fentanyl (Verified Allergy, Intermediate, 03/19/19) I S O L A T I O N *CONTACT* (Verified Allergy, Unknown, 04/10/19) VRE cefepime (Verified Adverse Reaction, Intermediate, "makes her feel sick", 03/19/19) hydrocodone (Verified Adverse Reaction, Intermediate, itching, 03/19/19) ROS Review of System as per HPI,a ll else neg Physical Exam General: Alert, Oriented X3, Cooperative, No acute distress HEENT: Atraumatic, PERRLA, EOMI Lungs: Clear to auscultation, Normal air movement Heart: S1S2, RRR, no thrills, no rubs, no gallops, no murmurs Cardiovascular: S1, S2 Breasts: Normal, Rt breast nml w/o mass, Lt breast nml w/o mass, Nipples normal Abdomen: Normal bowel sounds, Soft, No tenderness, No hepatosplenomegaly, No masses Rectal Exam: not examined PELVIC: Nml ext genitalia Extremities: No clubbing, No cyanosis, No edema, Normal pulses, No tenderness/swelling Skin: No rashes, No breakdown, No significant lesion Neuro: Normal gait, Normal speech, Strength at 5/5 X4 ext, Normal tone, Sensation intact, Cranial nerves 3-12 NL, Reflexes 2+ Psych/Mental Status: Mental status NL, Mood NL Vitals Vitals Vital Signs Date Time Temp Pulse Resp B/P (MAP) Pulse Ox O2 Delivery O2 Flow Rate FiO2 06/04/19 07:45 Room Air 06/04/19 07:00 98.2 109 20 124/74 (91) 94 98.2 Labs Labs Laboratory Tests Test 06/03/19 17:00 06/03/19 17:01 06/03/19 17:08 06/03/19 17:09 Glucose (Fingerstick) 547 mg/dL (70-99) Urine Collection Type Void Urine Color Yellow Urine Clarity Clear Urine pH 6.5 Urine Specific [place] 1.025 Urine Protein Negative mg/dL (NEG-TRACE) Urine Glucose (UA) >=1000 mg/dL (NEG) Urine Ketones (Stick) Negative mg/dL (NEG) Urine Blood Large (NEG) Urine Nitrite Negative (NEG) Urine Bilirubin Negative (NEG) Urine Urobilinogen Dipstick 0.2 mg/dL (0.2 mg/dL) Urine Leukocyte Esterase Negative (NEG) Urine RBC >40 /HPF (0-2) Urine WBC 1-4 /HPF (0-4) Urine Squamous Epithelial Cells Many /LPF Urine Bacteria Few /HPF (0-FEW) Urine Yeast Present /HPF Urine Opiates Screen Neg (NEG) Urine Methadone Screen Neg (NEG) Urine Barbiturates Neg (NEG) Urine Phencyclidine Screen Neg (NEG) Urine Amphetamine/Methamphetamine Neg (NEG) Urine Benzodiazepines Screen Neg (NEG) Urine Cocaine Screen Neg (NEG) Urine Cannabinoids Screen Neg (NEG) Urine Ethyl Alcohol Neg (NEG) Bedside Urine HCG, Qualitative Hcg negative (Negative) O2 Saturation 95 % (92-99) Arterial Blood pH 7.43 (7.35-7.45) Arterial Blood pCO2 at Patient Temp 32 mmHg (35-46) Arterial Blood pO2 at Patient Temp 79 mmHg (85-108) Arterial Blood HCO3 20 mmol/L (21-28) Arterial Blood Base Excess -3 mmol/L (-3-3) FiO2 21% ra Test 06/03/19 17:40 06/03/19 19:07 06/03/19 21:39 06/03/19 23:32 White Blood Count 3.2 x10^3/uL (4.0-11.0) Red Blood Count 3.91 x10^6/uL (3.50-5.40) Hemoglobin 8.4 g/dL (12.0-15.5) Hematocrit 27.2 % (36.0-47.0) Mean Corpuscular Volume 70 fL (79-100) Mean Corpuscular Hemoglobin 22 pg (25-35) Mean Corpuscular Hemoglobin Concent 31 g/dL (31-37) Red Cell Distribution Width 18.2 % (11.5-14.5) Platelet Count 188 x10^3/uL (140-400) Neutrophils (%) (Auto) 52 % (31-73) Lymphocytes (%) (Auto) 40 % (24-48) Monocytes (%) (Auto) 8 % (0-9) Eosinophils (%) (Auto) 1 % (0-3) Basophils (%) (Auto) 0 % (0-3) Neutrophils # (Auto) 1.7 x10^3/uL (1.8-7.7) Lymphocytes # (Auto) 1.3 x10^3/uL (1.0-4.8) Monocytes # (Auto) 0.2 x10^3/uL (0.0-1.1) Eosinophils # (Auto) 0.0 x10^3/uL (0.0-0.7) Basophils # (Auto) 0.0 x10^3/uL (0.0-0.2) Platelet Estimate Adequate (ADEQUATE) Hypochromasia Slight Anisocytosis Slight Microcytosis Marked Target Cells Occ Ovalocytes Occ Schistocytes Occ Sodium Level 134 mmol/L (136-145) Potassium Level 4.1 mmol/L (3.5-5.1) Chloride Level 99 mmol/L (98-107) Carbon Dioxide Level 25 mmol/L (21-32) Anion Gap 10 (6-14) Blood Urea Nitrogen 7 mg/dL (7-20) Creatinine 0.7 mg/dL (0.6-1.0) Estimated GFR (Cockcroft-Gault) 98.3 BUN/Creatinine Ratio 10 (6-20) Glucose Level 563 mg/dL (70-99) Lactic Acid Level 2.4 mmol/L (0.4-2.0) 1.2 mmol/L (0.4-2.0) Calcium Level 8.3 mg/dL (8.5-10.1) Magnesium Level 1.4 mg/dL (1.8-2.4) Total Bilirubin 0.3 mg/dL (0.2-1.0) Aspartate Amino Transf (AST/SGOT) 23 U/L (15-37) Alanine Aminotransferase (ALT/SGPT) 21 U/L (14-59) Alkaline Phosphatase 540 U/L (46-116) Total Protein 7.1 g/dL (6.4-8.2) Albumin 2.8 g/dL (3.4-5.0) Albumin/Globulin Ratio 0.7 (1.0-1.7) Lipase 159 U/L (73-393) Glucose (Fingerstick) 429 mg/dL (70-99) 295 mg/dL (70-99) Test 06/04/19 07:31 Glucose (Fingerstick) 373 mg/dL (70-99) Laboratory Tests Test 06/03/19 17:00 06/03/19 17:01 06/03/19 17:08 06/03/19 17:09 Glucose (Fingerstick) 547 mg/dL (70-99) Urine Collection Type Void Urine Color Yellow Urine Clarity Clear Urine pH 6.5 Urine Specific [place] 1.025 Urine Protein Negative mg/dL (NEG-TRACE) Urine Glucose (UA) >=1000 mg/dL (NEG) Urine Ketones (Stick) Negative mg/dL (NEG) Urine Blood Large (NEG) Urine Nitrite Negative (NEG) Urine Bilirubin Negative (NEG) Urine Urobilinogen Dipstick 0.2 mg/dL (0.2 mg/dL) Urine Leukocyte Esterase Negative (NEG) Urine RBC >40 /HPF (0-2) Urine WBC 1-4 /HPF (0-4) Urine Squamous Epithelial Cells Many /LPF Urine Bacteria Few /HPF (0-FEW) Urine Yeast Present /HPF Urine Opiates Screen Neg (NEG) Urine Methadone Screen Neg (NEG) Urine Barbiturates Neg (NEG) Urine Phencyclidine Screen Neg (NEG) Urine Amphetamine/Methamphetamine Neg (NEG) Urine Benzodiazepines Screen Neg (NEG) Urine Cocaine Screen Neg (NEG) Urine Cannabinoids Screen Neg (NEG) Urine Ethyl Alcohol Neg (NEG) Bedside Urine HCG, Qualitative Hcg negative (Negative) O2 Saturation 95 % (92-99) Arterial Blood pH 7.43 (7.35-7.45) Arterial Blood pCO2 at Patient Temp 32 mmHg (35-46) Arterial Blood pO2 at Patient Temp 79 mmHg (85-108) Arterial Blood HCO3 20 mmol/L (21-28) Arterial Blood Base Excess -3 mmol/L (-3-3) FiO2 21% ra Test 06/03/19 17:40 06/03/19 19:07 06/03/19 21:39 06/03/19 23:32 White Blood Count 3.2 x10^3/uL (4.0-11.0) Red Blood Count 3.91 x10^6/uL (3.50-5.40) Hemoglobin 8.4 g/dL (12.0-15.5) Hematocrit 27.2 % (36.0-47.0) Mean Corpuscular Volume 70 fL (79-100) Mean Corpuscular Hemoglobin 22 pg (25-35) Mean Corpuscular Hemoglobin Concent 31 g/dL (31-37) Red Cell Distribution Width 18.2 % (11.5-14.5) Platelet Count 188 x10^3/uL (140-400) Neutrophils (%) (Auto) 52 % (31-73) Lymphocytes (%) (Auto) 40 % (24-48) Monocytes (%) (Auto) 8 % (0-9) Eosinophils (%) (Auto) 1 % (0-3) Basophils (%) (Auto) 0 % (0-3) Neutrophils # (Auto) 1.7 x10^3/uL (1.8-7.7) Lymphocytes # (Auto) 1.3 x10^3/uL (1.0-4.8) Monocytes # (Auto) 0.2 x10^3/uL (0.0-1.1) Eosinophils # (Auto) 0.0 x10^3/uL (0.0-0.7) Basophils # (Auto) 0.0 x10^3/uL (0.0-0.2) Platelet Estimate Adequate (ADEQUATE) Hypochromasia Slight Anisocytosis Slight Microcytosis Marked Target Cells Occ Ovalocytes Occ Schistocytes Occ Sodium Level 134 mmol/L (136-145) Potassium Level 4.1 mmol/L (3.5-5.1) Chloride Level 99 mmol/L (98-107) Carbon Dioxide Level 25 mmol/L (21-32) Anion Gap 10 (6-14) Blood Urea Nitrogen 7 mg/dL (7-20) Creatinine 0.7 mg/dL (0.6-1.0) Estimated GFR (Cockcroft-Gault) 98.3 BUN/Creatinine Ratio 10 (6-20) Glucose Level 563 mg/dL (70-99) Lactic Acid Level 2.4 mmol/L (0.4-2.0) 1.2 mmol/L (0.4-2.0) Calcium Level 8.3 mg/dL (8.5-10.1) Magnesium Level 1.4 mg/dL (1.8-2.4) Total Bilirubin 0.3 mg/dL (0.2-1.0) Aspartate Amino Transf (AST/SGOT) 23 U/L (15-37) Alanine Aminotransferase (ALT/SGPT) 21 U/L (14-59) Alkaline Phosphatase 540 U/L (46-116) Total Protein 7.1 g/dL (6.4-8.2) Albumin 2.8 g/dL (3.4-5.0) Albumin/Globulin Ratio 0.7 (1.0-1.7) Lipase 159 U/L (73-393) Glucose (Fingerstick) 429 mg/dL (70-99) 295 mg/dL (70-99) Test 06/04/19 07:31 Glucose (Fingerstick) 373 mg/dL (70-99) VTE Prophylaxis Ordered VTE Prophylaxis Devices: Yes VTE Pharmacological Prophylaxi: Yes Assessment/Plan Assessment/Plan SIRS but no infection NO UTI HONK DM gastroparesis PLAN; ADA when tolerates IVF Hold off abx REglan and other gastroparetic meds Resume home regimen insulin which is 60 BID long acting and 25 TID with meals short acting PAin meds AMbulate at will HIRAL Saha RN, MD Jun 04, 2019 09:24
[2019-06-04] MEDS ORDERED: MAG HYDROX/ALUMINUM HYD/SIMETH 30 ML ORAL.SUSP PO PRN (09:30)
[2019-06-04] MEDS ORDERED: NICOTINE 21MG PATCH. TD PRN (09:30)
[2019-06-04] MEDS: traMADol 50 MG TABLET PO PRN ×3 (09:46→22:22)
[2019-06-04] MEDS: PANTOPRAZOLE 40 MG TABLET.DR. PO SCH (09:46)
[2019-06-04] MEDS: BETHANECHOL CHLORIDE 25 MG TABLET PO SCH ×3 (09:46→17:47)
[2019-06-04] MEDS: LACTOBACILLUS RHAMNOSUS GG 1 CAPSULE. PO SCH ×2 (09:46→20:50)
[2019-06-04] MEDS: FERROUS SULFATE 325 MG TABLET. PO SCH ×2 (09:46→17:47)
[2019-06-04 11:00] VITALS: BP 119/69
[2019-06-04] MEDS: ONDANSETRON PF 4 MG/2 ML VIAL. IV PRN ×2 (11:59→17:48)
[2019-06-04] MEDS: METOCLOPRAMIDE 10 MG TABLET. PO PRN ×2 (14:32→18:39)
[2019-06-04 15:00] VITALS: BP 99/64
[2019-06-04] MEDS: diazePAM 5 MG TABLET PO PRN ×2 (15:07→23:44)
[2019-06-04] MEDS: IV NORMAL SALINE 1000ML BAG 1,000 ML IV SCH (17:46)
[2019-06-04 19:00] VITALS: BP 122/75
[2019-06-04] MEDS ORDERED: MAGNESIUM SULFATE 4GM 100 ML IV ONE (19:30)
[2019-06-04] MEDS: MORPHINE SULFATE 4 MG/ML VIAL. IV PRN (20:50)
[2019-06-04] MEDS: QUEtiapine 100 MG TABLET. PO SCH (20:50)
--- NOTE | 2019-06-04 20:50 | NUR ---
Pt's blood sugar was 63. 1/2 amp of d50 given. Repeat blood sugar was 124. Evening humalog given late and pt. hasn't ate full supper yet. Lantus given after snack given. Will monitor.
[2019-06-04 23:01] VITALS: BP 118/82
[2019-06-05] MEDS: MORPHINE SULFATE 4 MG/ML VIAL. IV PRN ×3 (01:15→09:29)
[2019-06-05] MEDS: IV NORMAL SALINE 1000ML BAG 1,000 ML IV SCH ×2 (03:49→12:30)
[2019-06-05] MEDS: traMADol 50 MG TABLET PO PRN ×2 (05:06→12:03)
[2019-06-05] MEDS: BETHANECHOL CHLORIDE 25 MG TABLET PO SCH ×2 (05:06→11:30)
[2019-06-05] MEDS: PANTOPRAZOLE 40 MG TABLET.DR. PO SCH (05:06)
[2019-06-05 07:00] VITALS: BP 102/59
[2019-06-05] MEDS ORDERED: PANT40TA77 PO (07:37)
[2019-06-05] MEDS ORDERED: DIAZ10TA2 PO (07:37)
[2019-06-05] MEDS ORDERED: ONDA4TAB12 PO (07:37)
[2019-06-05] MEDS ORDERED: METO10TA81 PO (07:37)
[2019-06-05] MEDS: INSULIN LISPRO 300 UNITS/3 ML VIAL. SQ SCH ×4 (08:45→12:07)
[2019-06-05] MEDS: INSULIN GLARGINE SYRINGE. SQ SCH (08:46)
--- NOTE | 2019-06-05 08:59 | PDOC3 ---
Discharge Summary Visit Information Date of Admission: Jun 04, 2019 Date of Discharge: Jun 05, 2019 Admitting Diagnosis Comment: SIRS but no infection NO UTI HONK DM gastroparesis Final Diagnosis Problems Medical Problems: (1) Abdominal pain Status: Acute (2) Hyperglycemia Status: Acute (3) Nausea & vomiting Status: Acute Brief Hospital Course Allergies Allergies Coded Allergies Type Severity Reaction Last Updated Verified Penicillins Allergy Severe ANAPHYLAXIS 03/19/19 Yes doxycycline Allergy Intermediate 03/19/19 Yes fentanyl Allergy Intermediate 03/19/19 Yes I S O L A T I O N *CONTACT* Allergy Unknown 04/10/19 Yes cefepime Adverse Reaction Intermediate "makes her feel sick" 03/19/19 Yes hydrocodone Adverse Reaction Intermediate itching 03/19/19 Yes Vital Signs Vital Signs Date Time Temp Pulse Resp B/P (MAP) Pulse Ox O2 Delivery O2 Flow Rate FiO2 06/05/19 07:00 97.8 96 17 102/59 (73) 98 Room Air 97.8 Lab Results Laboratory Tests Test 06/03/19 17:00 06/03/19 17:01 06/03/19 17:08 06/03/19 17:09 Glucose (Fingerstick) 547 mg/dL (70-99) Urine Collection Type Void Urine Color Yellow Urine Clarity Clear Urine pH 6.5 Urine Specific [place] 1.025 Urine Protein Negative mg/dL (NEG-TRACE) Urine Glucose (UA) >=1000 mg/dL (NEG) Urine Ketones (Stick) Negative mg/dL (NEG) Urine Blood Large (NEG) Urine Nitrite Negative (NEG) Urine Bilirubin Negative (NEG) Urine Urobilinogen Dipstick 0.2 mg/dL (0.2 mg/dL) Urine Leukocyte Esterase Negative (NEG) Urine RBC >40 /HPF (0-2) Urine WBC 1-4 /HPF (0-4) Urine Squamous Epithelial Cells Many /LPF Urine Bacteria Few /HPF (0-FEW) Urine Yeast Present /HPF Urine Opiates Screen Neg (NEG) Urine Methadone Screen Neg (NEG) Urine Barbiturates Neg (NEG) Urine Phencyclidine Screen Neg (NEG) Urine Amphetamine/Methamphetamine Neg (NEG) Urine Benzodiazepines Screen Neg (NEG) Urine Cocaine Screen Neg (NEG) Urine Cannabinoids Screen Neg (NEG) Urine Ethyl Alcohol Neg (NEG) Bedside Urine HCG, Qualitative Hcg negative (Negative) O2 Saturation 95 % (92-99) Arterial Blood pH 7.43 (7.35-7.45) Arterial Blood pCO2 at Patient Temp 32 mmHg (35-46) Arterial Blood pO2 at Patient Temp 79 mmHg (85-108) Arterial Blood HCO3 20 mmol/L (21-28) Arterial Blood Base Excess -3 mmol/L (-3-3) FiO2 21% ra Test 06/03/19 17:40 06/03/19 19:07 06/03/19 21:39 06/03/19 23:32 White Blood Count 3.2 x10^3/uL (4.0-11.0) Red Blood Count 3.91 x10^6/uL (3.50-5.40) Hemoglobin 8.4 g/dL (12.0-15.5) Hematocrit 27.2 % (36.0-47.0) Mean Corpuscular Volume 70 fL (79-100) Mean Corpuscular Hemoglobin 22 pg (25-35) Mean Corpuscular Hemoglobin Concent 31 g/dL (31-37) Red Cell Distribution Width 18.2 % (11.5-14.5) Platelet Count 188 x10^3/uL (140-400) Neutrophils (%) (Auto) 52 % (31-73) Lymphocytes (%) (Auto) 40 % (24-48) Monocytes (%) (Auto) 8 % (0-9) Eosinophils (%) (Auto) 1 % (0-3) Basophils (%) (Auto) 0 % (0-3) Neutrophils # (Auto) 1.7 x10^3/uL (1.8-7.7) Lymphocytes # (Auto) 1.3 x10^3/uL (1.0-4.8) Monocytes # (Auto) 0.2 x10^3/uL (0.0-1.1) Eosinophils # (Auto) 0.0 x10^3/uL (0.0-0.7) Basophils # (Auto) 0.0 x10^3/uL (0.0-0.2) Platelet Estimate Adequate (ADEQUATE) Hypochromasia Slight Anisocytosis Slight Microcytosis Marked Target Cells Occ Ovalocytes Occ Schistocytes Occ Sodium Level 134 mmol/L (136-145) Potassium Level 4.1 mmol/L (3.5-5.1) Chloride Level 99 mmol/L (98-107) Carbon Dioxide Level 25 mmol/L (21-32) Anion Gap 10 (6-14) Blood Urea Nitrogen 7 mg/dL (7-20) Creatinine 0.7 mg/dL (0.6-1.0) Estimated GFR (Cockcroft-Gault) 98.3 BUN/Creatinine Ratio 10 (6-20) Glucose Level 563 mg/dL (70-99) Lactic Acid Level 2.4 mmol/L (0.4-2.0) 1.2 mmol/L (0.4-2.0) Calcium Level 8.3 mg/dL (8.5-10.1) Magnesium Level 1.4 mg/dL (1.8-2.4) Total Bilirubin 0.3 mg/dL (0.2-1.0) Aspartate Amino Transf (AST/SGOT) 23 U/L (15-37) Alanine Aminotransferase (ALT/SGPT) 21 U/L (14-59) Alkaline Phosphatase 540 U/L (46-116) Total Protein 7.1 g/dL (6.4-8.2) Albumin 2.8 g/dL (3.4-5.0) Albumin/Globulin Ratio 0.7 (1.0-1.7) Lipase 159 U/L (73-393) Glucose (Fingerstick) 429 mg/dL (70-99) 295 mg/dL (70-99) Test 06/04/19 07:31 06/04/19 10:52 06/04/19 11:37 06/04/19 16:30 Glucose (Fingerstick) 373 mg/dL (70-99) 194 mg/dL (70-99) 88 mg/dL (70-99) Hemoglobin A1c 9.0 % (4.8-5.6) Test 06/04/19 20:22 06/04/19 20:43 06/05/19 07:47 Glucose (Fingerstick) 63 mg/dL (70-99) 124 mg/dL (70-99) 204 mg/dL (70-99) Laboratory Tests Test 06/04/19 10:52 06/04/19 11:37 06/04/19 16:30 06/04/19 20:22 Hemoglobin A1c 9.0 % (4.8-5.6) Glucose (Fingerstick) 194 mg/dL (70-99) 88 mg/dL (70-99) 63 mg/dL (70-99) Test 06/04/19 20:43 06/05/19 07:47 Glucose (Fingerstick) 124 mg/dL (70-99) 204 mg/dL (70-99) Brief Hospital Course Ms. Smith is a 28 old freq flier admitted for mild HONK with no coma, NO UTI this time (Hx VRE uti or MDR UTI), and abd pain/GAstroparesis sxs. BEtter after my overnight mx, i resumed home insulin regimen 60 BID and 25 TID and she actually went hypoglycemic, so i doubt she takes her meds at home if she comes in witha BS 400s. She requests her tramadol and valium refills among others which i provided NO consult, no procedures R x on chart We talked about G tube in worst case scenarios which she is not there yet as elytes are easily fixable. dc 32 mins in counselling etc Discharge Information Condition at Discharge: Improved, Stable Disposition/Orders: D/C to Home Scheduled Bethanechol Chloride (Urecholine) 25 Mg Tablet, 25 MG PO TIDAC for urine retention for 14 Days, #42 Prescribed by: JESSICA KOENIG MD on 04/20/19 1202 Last Action: Continued on 06/04/19 0816 by HIRAL EATON Ferrous Sulfate (Ferrous Sulfate) 325 Mg Tablet, 325 MG PO BID for iron supplement, (Reported) Entered as Reported by: ZACH RANDALL on 10/26/17 1923 Last Taken: Unknown Dose on 06/02/19 Last Action: Continued on 06/03/192157 by MILO HORN RN Insulin Glargine,Hum.rec.anlog (Lantus Solostar) 100 Unit/1 Ml Insuln.pen, 60 UNIT SQ BID for diabetes, (Reported) Entered as Reported by: MILO HORN RN on 06/03/192341 Last Taken: Unknown Dose on 06/03/19 1030 Last Action: Converted on 06/03/192343 by MILO HORN RN Insulin Lispro (Humalog) 100 Unit/1 Ml Insuln.pen, 25 UNITS SQ TIDWMEALS for diabetes for 30 Days, #1 Prescribed by: JESSICA KOENIG MD on 01/30/19 1610 Last Taken: Unknown Dose on 06/03/19 1500 Last Action: Continued on 06/03/192157 by MILO HORN RN Lactobacillus Rhamnosus Gg (Culturelle) 1 Each Cap.sprink, 1 CAP PO BID for supplement for 14 Days, #28 Prescribed by: JESSICA KOENIG MD on 04/20/19 1202 Last Action: Continued on 06/04/19 0816 by HIRAL EATON Pantoprazole Sodium (Pantoprazole Sodium ) 40 Mg Tablet.dr, 40 MG PO DAILYAC for gerd, #60 Prescribed by: HIRAL EATON on 06/05/19 0737 Quetiapine Fumarate (Seroquel) 100 Mg Tablet, 1 TAB PO QHS for mental health, #30 Ref 1 (Reported) Entered as Reported by: Brigitte Stanley on 12/21/17 0529 Last Taken: Unknown Dose on 06/02/19 Last Action: Continued on 06/03/192157 by MILO HORN RN Scheduled PRN Diazepam (Valium) 10 Mg Tablet, 5 MG PO TID PRN for ANXIETY / AGITATION, #30 Prescribed by: HIRAL EATON on 06/05/19 0737 Metoclopramide Hcl (Reglan) 10 Mg Tablet, 1 TAB PO QID PRN for NAUSEA, #30 Prescribed by: HIRAL EATON on 06/05/19 0737 Ondansetron (Ondansetron Odt) 4 Mg Tab.rapdis, 4 MG PO PRN Q6HRS PRN for NAUSEA/VOMITING for 10 Days, #30 Prescribed by: HIRAL EATON on 06/05/19 0737 HIRAL EATON MD Jun 05, 2019 08:59
[2019-06-05] MEDS: FERROUS SULFATE 325 MG TABLET. PO SCH (09:00)
[2019-06-05] MEDS: LACTOBACILLUS RHAMNOSUS GG 1 CAPSULE. PO SCH (09:00)
--- NOTE | 2019-06-05 09:22 | NUR ---
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 Pt to be in contact precautions until there are 2 negative urine cultures 7 days apart without antibiotics.
[2019-06-05 10:51] VITALS: BP 110/62
[2019-06-05] MEDS ORDERED: HEPARIN PF 500 UNIT/5 ML DISP.SYRIN. IVP ONE (12:00)
--- NOTE | 2019-06-05 12:00 | NUR ---
DISCHARGE INSTRUCTIONS GIVEN, QUESTIONS AND CONCERNS ANSWERED, PATIENT VERBALIZED UNDERSTANDING OF DISCHARGE INFORMATION INCLUDING TAKING ALL MEDICATIONS INSTRUCTED AND FOLLOWING UP WITH HER PRIMARY PROVIDER IN 1-2 WEEKS, ALL PERSONAL BELONGINGS GATHERED AND PLACED IN BAGS FOR DISCHARGE PER THE PATIENT AND HER SIGNIFICANT OTHER.
[2019-06-05] MEDS: diazePAM 5 MG TABLET PO PRN (12:03)
--- NOTE | 2019-06-05 12:50 | NUR ---
PATIENT LEAVES THE UNIT PER HER PERSONAL W/C AND ACCOMPANIED BY HER SIGNIFICANT OTHER, AND [employer] ACCOUNTING SPECIALIST ON THE UNIT, EMOTIONAL SUPPORT GIVEN, FOLLOW UP APPOINTMENTS ENCOURAGED.
--- NOTE | 2019-06-05 12:58 | NUR ---
SW following for discharge planning. Discussed with RN, pt is well known at [facility]. RN advised no SW needs at this time. SW will continue to follow should any discharge needs arise.
== END 2019-06-05 12:50 | disposition home or self-care (01) | DRG 74 ==
LOC: ER 16:45 → 5 SOUTH 20:40
PROVIDERS: ADMIT Internal Medicine; ATTEND Internal Medicine
DX: E10.43 Type 1 diabetes mellitus with diabetic autonomic (poly)neuropathy (principal); R65.10 Systemic inflammatory response syndrome (SIRS) of non-infectious origin without acute organ dysfunction; E10.649 Type 1 diabetes mellitus with hypoglycemia without coma; E10.65 Type 1 diabetes mellitus with hyperglycemia; F41.9 Anxiety disorder, unspecified; I10 Essential (primary) hypertension; K21.9 Gastro-esophageal reflux disease without esophagitis; K31.84 Gastroparesis; Z79.4 Long term (current) use of insulin; Z82.49 Family history of ischemic heart disease and other diseases of the circulatory system; Z86.718 Personal history of other venous thrombosis and embolism; Z88.0 Allergy status to penicillin; Z88.8 Allergy status to other drugs, medicaments and biological substances
CPT/HCPCS: 36415; 36600; 80053; 80307; 81001; 81025; 82805; 82962; 83036; 83605; 83690; 83735; 85025; J1815; J2270; J2405; J3475; J7030; J7042; J8597; G0378

== ENCOUNTER 2019-06-23 00:40 | Emergency (ER) | payer SELFPAY ==
[~2019-06-23] VITALS: Ht 162.6 cm; Wt 83.5 kg
[~2019-06-23 00:40] MED LIST changes: +DIAZ10TA2 PO; +PANT40TA77 PO
[2019-06-23 01:22] VITALS: BP 109/67
[2019-06-23] MEDS ORDERED: ONDANSETRON PF 4 MG/2 ML VIAL. ONE (01:29)
[2019-06-23] MEDS ORDERED: ONDANSETRON PF 4 MG/2 ML VIAL. IVP ONE (01:45)
[2019-06-23] MEDS ORDERED: IV NORMAL SALINE 1000ML BAG 1,000 ML IV SCH (01:45)
[2019-06-23] MEDS ORDERED: INSULIN REGULAR 100 UNIT/ML 3ML VIAL. SQ ONE ×2 (01:45→03:15)
[2019-06-23] MEDS ORDERED: HEPARIN PF 500 UNIT/5 ML DISP.SYRIN. ONE (03:41)
[2019-06-23 04:28] LABS: BASO % 0 % (0-3); EOS % 0 % (0-3); LYMPH # 1.5 x10^3/uL (1.0-4.8); LYMPH % 43 % (24-48); MEAN CORPUSCULAR HEMOGLOBIN 22 pg (25-35); MEAN CORPUSCULAR HGB CONC 31 g/dL (31-37); MEAN CORPUSCULAR VOLUME 69 fL (79-100); MONO # 0.3 x10^3/uL (0.0-1.1); MONO % 9 % (0-9); NEUT # 1.7 x10^3/uL (1.8-7.7); NEUT % 47 % (31-73); PLATELET COUNT 163 x10^3/uL (140-400); RED BLOOD COUNT 4.18 x10^6/uL (3.50-5.40); RED CELL DISTRIBUTION WIDTH 19.3 % (11.5-14.5); WHITE BLOOD COUNT 3.5 x10^3/uL (4.0-11.0)
[2019-06-23 04:35] LABS: BACTERIA,URINE FEW /HPF (0-FEW); BILIRUBIN,URINE NEGATIVE (NEG); CLARITY,URINE CLEAR; COLOR,URINE YELLOW; NITRITE,URINE NEGATIVE (NEG); PH,URINE 6.5; PROTEIN,URINE NEGATIVE (NEG-TRACE); RBC,URINE TNTC /HPF (0-2); SQUAMOUS EPITHELIAL CELL,UR MOD /LPF; UROBILINOGEN,URINE 0.2 mg/dL (0.2 mg/dL); WBC,URINE OCC /HPF (0-4)
[2019-06-23 04:48] LABS: CALCIUM 7.9 mg/dL (8.5-10.1); CREATININE 0.7 mg/dL (0.6-1.0); GFR 98.3; POTASSIUM 4.7 mmol/L (3.5-5.1)
[2019-06-23 04:50] LABS: AMPHETAMINE/METHAMPHETAMINE NEG (NEG); BARBITURATES NEG (NEG); BENZODIAZEPINES NEG (NEG); CANNABINOIDS NEG (NEG); COCAINE NEG (NEG); METHADONE NEG (NEG); OPIATES NEG (NEG); PHENCYCLIDINE NEG (NEG)
[2019-06-23 10:36] LABS: PLT ESTIMATE ADEQUATE (ADEQUATE)
[2019-06-23 10:37] LABS: ANISOCYTOSIS SLIGHT; HYPOCHROMIA MOD; MICROCYTOSIS MOD; OVALOCYTES OCC; POIKILOCYTOSIS PRESENT
[2019-06-30] MEDS ORDERED: CEPH250C PO (10:52)
[2019-06-30] MEDS ORDERED: INSU100I11 SQ (10:52)
== END 2019-06-23 03:40 | disposition home or self-care (01) ==
LOC: ER 00:40
DX: R73.9 Hyperglycemia, unspecified (principal); R11.2 Nausea with vomiting, unspecified; R10.9 Unspecified abdominal pain; D64.9 Anemia, unspecified; F41.9 Anxiety disorder, unspecified; E10.9 Type 1 diabetes mellitus without complications; I82.509 Chronic embolism and thrombosis of unspecified deep veins of unspecified lower extremity; Z98.890 Other specified postprocedural states
CPT/HCPCS: 36415; 80048; 80307; 81001; 81025; 82010; 82962; 85025; 96374; 99284